=== PATIENT | male | born 1955 | race Two or more races ===

== ENCOUNTER → 2020-06-13 12:31 | Outpatient (BNVA) | payer OTHER, SELFPAY | PROVIDERS: PCP Internal Medicine; Referring Provider Internal Medicine; Visit Provider Internal Medicine | DX: I25.10 Atherosclerotic heart disease of native coronary artery without angina pectoris (principal); I47.2 Ventricular tachycardia; Z79.899 Other long term (current) drug therapy | CPT/HCPCS: 99212 ==

== ENCOUNTER → 2020-09-13 13:02 | Outpatient (BNVA) | payer OTHER, SELFPAY | PROVIDERS: PCP Internal Medicine; Visit Provider Internal Medicine | DX: I25.10 Atherosclerotic heart disease of native coronary artery without angina pectoris (principal); I47.2 Ventricular tachycardia; I10 Essential (primary) hypertension; E11.8 Type 2 diabetes mellitus with unspecified complications | CPT/HCPCS: 99212 ==

== ENCOUNTER → 2020-09-30 08:35 | Outpatient (REF) | payer OTHER, SELFPAY ==
--- NOTE | ~2020-09-30 | NM_ITS ---
Myocardial perfusion study Indication: Coronary artery disease to evaluate for myocardial ischemia Technique: The patient was brought in for a Lexiscan perfusion study on 09/30/2020. Patient performed low-level exercise and was injected 0.4 mg of Lexiscan intravenously. Within a minute of injection, 30mCi of sestamibi was given intravenously. Images were obtained using the SPECT gamma camera interlaced with the gating device. Images were obtained in supineposition. Resting perfusion study was performed on 10/03/2020 Patient was administered 30mCi of sestamibi intravenously at rest. Images were then obtained in supineposition. Images were processed with the software and compared side to side in short axis, horizontal long axis and vertical long axis views. Findings: The stress perfusion study showed non attenuated images show moderately reduced uptake in the septum and absent uptake in the apex and mildly reduced uptake in the inferior wall of the LV myocardium with mild the uptake reducing the distal anterior wall of the LV myocardium. Attenuation corrected images shows moderately reduced uptake in the septum, distal anterior and mildly reduced uptake in the mid anterior with absent uptake in the apex of the LV myocardium, unchanged from non attenuated images. The gated study shows low normal LV systolic function with calculated LVEF of 54. LV cavity is mildly dilated in size. The gated study shows normal wall thickening and contraction of all segments except distal septum and apex. Resting study shows mildly reduced uptake in the apex on non attenuated images. Gating at rest reveals normal systolicwall motion with ejection fraction at 61%. The findings are consistent with moderate intensity anteroseptal, distal anterior and mildly intensity mid anterior and severely intensity apical ischemia in LAD territory. NM/NM cardiolite stress test Impression: 1. Myocardial perfusion imaging study shows LAD territory ischemia 2. Gated LVEF is 54% with stress and 61% with stress 3. Transient ischemic dilatation present EKG is nondiagnostic for ischemia
--- NOTE | 2020-09-30 09:30 | CA_ITS ---
Acquisition Time: 2020-09-30 09:44:39 Total Exercise Time: 00:02:00 Test Indications: Chest Pain Medications: AMLODIPINE ASA ATENOLOL ATORVASTATIN CLOPIDOGREL GABAPENTIN Protocol: LEXISCAN Max HR: 086 BPM 55% of Pred: 155 BPM Max BP: 130/082 mmHG Max Work Load: 1.0 METS Pharmacological stress test using Lexiscan while sitting and kicking his feet. Pt c/o chest pressure after Lexiscan, reversed with Aminophyline. Pt belching as well. EKG with isolated PAC, non-diagnostic for ischemia. Nuclear images to follow. Normotensive response to test. Test reviewed with Dr. García Referred By: Lacho García Overread By:
== END ==
LOC: HO.CARD 08:35
PROVIDERS: Visit Provider Internal Medicine
DX: I25.10 Atherosclerotic heart disease of native coronary artery without angina pectoris (principal)
CPT/HCPCS: 78452; 93016; 93017; 93018; A9500; J0280; J2785

== ENCOUNTER 2020-10-03 08:52 | Emergency (ER) | payer OTHER, SELFPAY ==
--- NOTE | ~2020-10-03 | XR_ITS ---
EXAMINATION: XR CHEST CLINICAL INFORMATION: Cough COMPARISON: 03/25/2015 TECHNIQUE: Frontal view of the chest was obtained. FINDINGS: The lungs are well expanded. There is no focal consolidation, edema, or effusion. Mild bronchial wall thickening is noted. No pneumothorax. The cardiomediastinal silhouette is within normal limits. No acute osseous abnormality. XR/XR chest 1V IMPRESSION: No dense consolidation. Bronchial wall thickening can be seen with a small airways process such as asthma or atypical/viral infection.
[2020-10-03 09:18] VITALS: BP 135/74; PULSE 75; RESP 18; TEMP 36.8; O2SAT 98; BMI 24.0
--- NOTE | 2020-10-03 10:09 | ED.URI ---
HPI - URI/Sore Throat General Chief Complaint: Upper Respiratory Symptoms Stated Complaint: cough Time Seen by Provider: 10/03/20 09:18 Source: patient Mode of arrival: ambulatory Limitations: language barrier ([place]-speaking) History of Present Illness HPI Narrative: 65-year-old male with a past medical history of coronary artery atherosclerosis, arthrosclerotic cardiovascular disease, nonsustained ventricular tachycardia, essential hypertension and type 2 diabetes with diabetic polyneuropathy who has had a cardiac catheterization in the past and recently had a stress test on 09/30/2020 which revealed isolated PACs nondiagnostic for ischemia and then nuclear images were to follow normotensive response to test still pending results being followed by Dr. García presenting to the ED with complaints of nasal congestion with a dry cough reports this has been going on for months although he just wants to be tested for COVID. Reports that he just had an appointment this morning and he has an appointment this afternoon with Dr. García to follow up with his results for his chronic chest pain. Patient denies any worsening chest pain, shortness of breath or any other cardiac related complaints today. Denies any dizziness, lightheadedness, changes in vision, nausea/vomiting, palpitations, dyspnea on exertion, orthopnea, lower extremity edema or any symptoms. Reports he really just wants to be tested for coronavirus at this time. Denies recent travel or sick contacts. MD elicited complaint: cough and nasal congestion Consistency: constant Severity: moderate Description of mucous: yellow Able to tolerate fluids by mouth: Yes Exacerbating factors: nothing Treatments prior to arrival: none Related Data Home Medications Medication Instructions Recorded Confirmed amlodipine 10 mg tablet 10 mg PO DAILY 06/13/20 09/13/20 folic acid 1 mg tablet 1 mg PO DAILY 06/13/20 09/13/20 mirabegron 50 mg tablet,extended 50 mg PO DAILY 06/13/20 09/13/20 release 24 hr pantoprazole 40 mg tablet,delayed 40 mg PO DAILY 06/13/20 09/13/20 release tamsulosin 0.4 mg capsule 0.4 mg PO DAILY 06/13/20 09/13/20 gabapentin 300 mg capsule 300 mg PO TID 07/27/20 09/13/20 Previous Rx's Medication Instructions Recorded atorvastatin 80 mg tablet 80 mg PO DAILY 30 Days #30 tab 10/07/20 aspirin 81 mg tablet,delayed 81 mg PO DAILY 90 Days #90 tab 05/05/20 release hydralazine 25 mg tablet 25 mg PO TID 90 Days #270 tab 05/05/20 sitagliptin 100 mg tablet 100 mg PO DAILY 90 Days #90 tab 05/05/20 metformin 1,000 mg tablet 1,000 mg PO BID #180 tab 05/10/20 isosorbide mononitrate 60 mg 120 mg PO QAM #60 tab 06/27/20 tablet,extended release 24 hr cholecalciferol (vitamin D3) 50 50 mcg PO DAILY 30 Days #30 cap 07/05/20 mcg (2,000 unit) capsule lisinopril 40 mg tablet 40 mg PO QAM #90 tab 07/30/20 blood sugar diagnostic #100 ea 08/02/20 lancets 33 gauge #100 ea 08/02/20 ranolazine 500 mg tablet,extended 500 mg PO BID 30 Days #60 tab 08/23/20 release,12 hr nitroglycerin 0.4 mg sublingual 0.4 mg SUBLINGUAL Q5M PRN 30 Days 09/13/20 tablet #30 tab clopidogrel 75 mg tablet 75 mg PO DAILY 90 Days #90 tab 09/22/20 gabapentin 300 mg capsule 300 mg PO TID #90 cap 09/22/20 atenolol 100 mg tablet 100 mg PO BEDTIME #30 tab 09/23/20 levothyroxine 125 mcg tablet 125 mcg PO QAM #90 tab 09/25/20 mirabegron 50 mg tablet,extended 50 mg PO DAILY 90 Days #90 tab 09/29/20 release 24 hr azithromycin See Rx Instructions .ROUTE 10/03/20 .COMPLEX #6 tab loratadine [Claritin] 10 mg PO DAILY PRN #10 tab 10/03/20 Allergies Allergy/AdvReac Type Severity Reaction Status Date / Time amlodipine AdvReac Unknown leg edema Verified 09/13/20 13:04 Review of Systems Review of Systems: Constitutional : No Fever, No Chills, No fatigue, No Malaise ENT/Mouth : No sore throat, + runny nose/nasal congestion Eyes: No Discharge Cardiovascular : No Chest Pain, No SOB Respiratory : + Cough, No Sputum, No Wheezing, No Smoke Exposure, No Dyspnea Gastrointestinal : No Nausea, No Vomiting, No Diarrhea Genitourinary : No irregular bleeding, No Dysuria, No Urinary Frequency, No Hematuria, No Urinary Incontinence, No Urgency, No Flank Pain, Musculoskeletal : No Myalgia Skin : No rash Neuro : No Headache Yes all other systems are reviewed and are negative [facility] Past Medical History Attestation statement: The following information was validated with the patient. Medical History Atherosclerotic cardiovascular disease Coronary artery arteriosclerosis Essential hypertension NSVT (nonsustained ventricular tachycardia) Type 2 diabetes mellitus with diabetic polyneuropathy Surgical History History of cardiac catheterization Family History Family History Father No problems noted. Mother No problems noted. Social History Social History Smoking Status: Never smoker Advance Directives: No Advance Directives Information Provided: No Physical Exam Vital Signs: Vital Signs: Last Vital Signs Temp 98.2 F 10/03/20 09:18 Pulse 75 10/03/20 09:18 Resp 18 10/03/20 09:18 BP 135/74 10/03/20 09:18 Pulse Ox 98 10/03/20 09:18 Body Mass Index 24.0 vital signs have been reviewed as normal and appeared to be correct. Blood pressure normal. Heart rate normal. Respiration rate normal. Temperature normal. Oxygen saturation normal. Appearance: Alert. Oriented X3. No acute distress. Head: Normal external exam. Normocephalic. Atraumatic. Eyes: PERRLA. EOMI. Conjunctiva and sclera normal. Eyelids normal. ENT: EAC normal. TM's Normal. Pharynx normal. Uvula midline. Moist mucous membranes. No trismus noted. No drooling noted. No muffled voice noted. Neck: Normal inspection. Neck supple. FROM. No adenopathy. Thyroid Normal. No meningeal signs. No neck mass noted. CVS: Normal heart rate and rhythm. Heart sound normal. No murmurs noted. Pulses normal throughout. Respiratory: No respiratory distress. Painless inspiration. Breath sounds normal. No wheezes/rales/rhonchi noted. Chest nontender. No accessory muscle usage noted or decreased air movement noted. Back: No CVA tenderness. Full range of motion noted. Skin: Skin warm and dry. Normal skin color. Normal skin turgor. No rashes/lesions/lacerations noted. Extremities: No lower extremity edema. No calf tenderness noted. Extremities exhibit normal range of motion. Extremities nontender. Neuro: Oriented X 3. No motor deficit. No sensory deficit. Reflexes normal. Course Course Course Narrative: 65-year-old male with extensive cardiac history being followed by Ricky has a follow-up appointment today presenting to the ED with nasal congestion, runny nose and a cough for the past few months worse today. Reports that he just wants to get tested for COVID at this time. Denies recent travel or sick contacts. Denies any other symptoms complaints or concerns at this time. On exam patient is alert and oriented x3. Nontoxic appearing. Vital signs are stable within normal limits. Chest x-ray obtained and revealed no dense consolidation bronchial wall thickening can be seen with small airway processes such as asthma or atypical viral infection otherwise no other acute processes. Pending COVID/flu/RSV swab. Will DC home with antibiotics and symptomatic treatment along with instructions return if any new or worsening symptoms. Patient understands agrees with this plan. MDM - URI/Sore Throat Medical Records Attestation: I reviewed the patient's medical records. Imaging Data Chest x-ray: Attestation: I personally reviewed and interpreted this imaging study as follows: Radiologist's impression: FINDINGS: The lungs are well expanded. There is no focal consolidation, edema, or effusion. Mild bronchial wall thickening is noted. No pneumothorax. The cardiomediastinal silhouette is within normal limits. No acute osseous abnormality. XR/XR chest 1V IMPRESSION: No dense consolidation. Bronchial wall thickening can be seen with a small airways process such as asthma or atypical/viral infection. Discharge Plan Discharge Clinical Impression: Upper respiratory infection Patient Disposition: Home, Self-Care Instructions: Upper Respiratory Infection (ED) Additional Instructions: Si recibe aydin llamada sobre los resultados positivos de COVID no debe ir a la oficina del Dr. García debe ponerse en contacto con ?l y hacerle saber que es positivo para COVID si vuelve positivo. Bas?ndonos en abdulaziz s?ntomas e historial hemos enviado un COVID-19. Aunque fuentes RESULTADO EST? PENDIENTE en idalmis momento. LOS RESULTADOS deben devolverse en un plazo de 72 horas. En idalmis momento se le contactar? con resultados NEGATIVOS o POSITIVOS. -Por favor, espere hasta que nos pongamos en contacto con usted para abdulaziz resultados. En idalmis momento usted estar? jeannette para el danitza. Por favor, planee la auto cuarentena hasta por 14 d?as. No te expongas a los dem?s. Puede que no vayas a trabajar. Si las pruebas vuelven negativas, es posible que vuelvas a las actividades siempre y cuando ya no tengas s?ntomas solo al menos 3 d?as. Por favor, contin?e siguiendo instrucciones fr?as y l?vese las alex con frecuencia. Usted puede patricia Tylenol may se indica en el frasco para el dolor o la fiebre. Paciente atendido en el servicio de urgencias el 10/03/2020 y debe ser eximido del trabajo hasta los resultados negativos de las pruebas Y hasta las 72 horas sin richie?n s?ntoma Y rapp pasado al menos 10 d?as desde que aparecieron los s?ntomas por primera vez o desde la ?ltima exposici?n al paciente covid-19 positivo Directrices de los CDC para el aislamiento en el hogar: - Al?jate de los dem?s - USE AYDIN M?SCARA si est? enfermo Y QU?DESE EN CASA - C?brase la boca y la nariz con un pa?uelo cuando tose o estornuda. Deseche los tejidos en un cubo de basura forrado y l?vese las alex inmediatamente con agua y jab?n solo al menos 20 segundos. Si no hay agua y jab?n disponibles, limpie las alex con desinfectante de alex a base de alcohol que contenga al menos un 60% de alcohol. - L?mpiate las alex a menudo con agua y jab?n solo al menos 20 segundos - Evite tocarse los ojos, la nariz y la boca con las alex sin radha - No comparta platos, tracey vasos, tazas, coma utensilios, toallas o ropa de cama con otras personas en fuentes hogar. Despu?s de usar estos art?culos, l?velo jeannette con agua y jab?n o col?justo en el [place]. - Limpie las superficies de alto tacto en fuentes ?meenakshi de aislamiento ( habitaci?n enferma y ba?o) todos los d?as; dejar que un cuidador limpie y desinfecte las superficies de alto tacto en otras ?reas del hogar. Limpie el ?meenakshi o art?culo con agua y jab?n u otro detergente si est? sucio. Entonces, usa un desinfectante dom?stico. - Limitar el contacto con mascotas y animales: Si usted debe cuidar de aydin mascota, l?vese las alex antes y despu?s de interactuar con ellos). If you receive a call regarding positive COVID results he should not go to Dr. García office she should contact him and let him know you are positive for COVID if it comes back positive. Based on your symptoms and history we have sent a COVID-19. Although your RESULT IS PENDING at this time. RESULTS should return within 72 hours. At this time you will be contacted with either NEGATIVE OR POSITIVE results. -Please wait until we contact you for your results. At this time you will be okay for discharge. Please plan for self quarantine for up to 14 days. Do not expose yourself to others. You may not go to work. If testing does come back negative you may return to activities as long as you are no longer having any symptoms for at least 3 days. Please continue to follow cold instructions and wash your hands frequently. You may take Tylenol as directed on the bottle for pain or fever. Patient seen in the emergency department on 10/03/2020 and should be excused from work until negative test results AND until 72 hours without any symptoms AND at least 10 days have passed since symptoms first appeared or since last exposure to COVID-19 positive patient CDC Guidelines for home isolation: - Stay away from others - WEAR A MASK if you are sick AND STAY HOME - Cover your mouth and nose with a tissue when you cough or sneeze. Dispose of tissues in a lined trash can and wash your hands immediately with soap and water for at least 20 seconds. If soap and water are not available, clean hands with alcohol-based hand irradiated fuel handler that contains at least 60% alcohol. - Clean your hands often with soap and water for at least 20 seconds - Avoid touching your eyes, nose and mouth with unwashed hands - Do not share dishes, drinking glasses, cups, eating utensils, towels, or bedding with other people in your home. After using these items, wash them thoroughly with soap and water or put in the business liaison manager. - Clean high-touch surfaces in your isolation area ( sick room and bathroom) every day; let a caregiver clean and disinfect high-touch surfaces in other areas of the home. Clean the area or item with soap and water or another detergent if it is dirty. Then, use a household disinfectant. - Limit contact with pets and animals: If you must care for a pet, wash your hands before and after interacting with them). Prescriptions: New loratadine [Claritin] 10 mg tablet 10 mg PO DAILY PRN (Reason: nasal congestion) Qty: 10 RF: 0 azithromycin 250 mg tablet See Rx Instructions .ROUTE .COMPLEX Qty: 6 RF: 0 No Action atorvastatin 80 mg tablet 80 mg PO DAILY 30 Days Qty: 30 RF: 6 hydralazine 25 mg tablet 25 mg PO TID 90 Days Qty: 270 RF: 3 Januvia 100 mg tablet 100 mg PO DAILY 90 Days Qty: 90 RF: 3 aspirin 81 mg tablet,delayed release (DR/EC) 81 mg PO DAILY 90 Days Qty: 90 RF: 3 metformin 1,000 mg tablet 1,000 mg PO BID Qty: 180 RF: 6 isosorbide mononitrate 60 mg tablet extended release 24 hr 120 mg PO QAM Qty: 60 RF: 5 cholecalciferol (vitamin D3) 50 mcg (2,000 unit) capsule 50 mcg PO DAILY 30 Days Qty: 30 RF: 6 gabapentin 300 mg capsule 300 mg PO TID RF: 0 lisinopril 40 mg tablet 40 mg PO QAM Qty: 90 RF: 2 (DME) lancets [TRUEplus Lancets] 33 gauge misc See Rx Instructions .ROUTE .MEDSUPPLY Qty: 100 RF: 6 (DME) FreeStyle Lite Strips Strip See Rx Instructions .ROUTE .MEDSUPPLY Qty: 100 RF: 6 ranolazine 500 mg tablet extended release 12 hr 500 mg PO BID 30 Days Qty: 60 RF: 5 clopidogrel 75 mg tablet 75 mg PO DAILY 90 Days Qty: 90 RF: 4 gabapentin 300 mg capsule 300 mg PO TID Qty: 90 RF: 1 atenolol 100 mg tablet 100 mg PO BEDTIME Qty: 30 RF: 11 levothyroxine 125 mcg tablet 125 mcg PO QAM Qty: 90 RF: 0 Myrbetriq 50 mg tablet extended release 24 hr 50 mg PO DAILY 90 Days Qty: 90 RF: 2 Myrbetriq 50 mg tablet extended release 24 hr 50 mg PO DAILY RF: 0 pantoprazole 40 mg tablet,delayed release (DR/EC) 40 mg PO DAILY RF: 0 tamsulosin 0.4 mg capsule 0.4 mg PO DAILY RF: 0 amlodipine 10 mg tablet 10 mg PO DAILY RF: 0 folic acid 1 mg tablet 1 mg PO DAILY RF: 0 nitroglycerin 0.4 mg tablet, sublingual 0.4 mg sublingual Q5M PRN (Reason: chest pain) 30 Days Qty: 30 RF: 5 Referrals: Shu Hernandez MD [Primary Care Provider] - 2 days Lacho García MD [Physician] - 2 days Print Language: [place]
[2020-10-03 10:56] LABS: Influenza A PCR NEGATIVE (Negative); Influenza B PCR NEGATIVE (Negative); Resp Syncy Virus RNA Qual PCR NEGATIVE (Negative); SARS COV2 PCR INHOUSE NEGATIVE (Negative)
== END 2020-10-03 11:04 | disposition home or self-care (01) ==
PROVIDERS: Physician Assistant Medical; Emergency Provider Emergency Medicine; PCP Internal Medicine
DX: J06.9 Acute upper respiratory infection, unspecified (principal); Z20.822 Contact with and (suspected) exposure to COVID-19; I10 Essential (primary) hypertension; E11.9 Type 2 diabetes mellitus without complications
CPT/HCPCS: 0241U; 36415; 71045; 99212; 99283

== ENCOUNTER 2020-10-03 12:12 | Outpatient (REF) | payer OTHER, SELFPAY ==
[2020-10-03 13:19] LABS: Hematocrit 39.6 % (42-52); Hemoglobin 13.9 g/dl (14.0-18.0); Mean Corpuscular HGB Conc 35.1 g/dl (31.0-36.0); Mean Corpuscular Hemoglobin 34.2 pg (27.0-33.0); Mean Corpuscular Volume 97.3 fL (80-98); Mean Platelet Volume 8.9 fL (9.4-12.4); Platelet Count 199 X10*3/uL (160-400); Red Blood Count 4.07 X10*6/uL (4.60-5.80); Red Cell Distribution Width 13.5 % (11.0-16.0); White Blood Count 5.2 X10*3/uL (4.8-10.8)
[2020-10-03 13:28] LABS: INTERNATIONAL NORM RATIO 1.1 (0.9-1.1); Prothrombin Time 12.7 SEC (10.8-13.0)
[2020-10-03 13:57] LABS: Anion Gap 12 (12-20); Blood Urea Nitrogen 16 mg/dL (9-16); Calcium 9.2 mg/dL (8.4-10.2); Carbon Dioxide 29 mmol/L (22-29); Chloride 105 mmol/L (96-108); Estimated Glomerular Filt Rate > 60; Glucose Random 107 mg/dL (60-115); Potassium 4.4 mmol/L (3.3-5.1); Sodium 142 mmol/L (135-145)
== END 2020-10-03 12:13 | disposition home or self-care (01) ==
LOC: HO.LAB 12:12
PROVIDERS: PCP Internal Medicine; Visit Provider Internal Medicine
DX: I25.10 Atherosclerotic heart disease of native coronary artery without angina pectoris (principal)
CPT/HCPCS: 36415; 80048; 85027; 85610

== ENCOUNTER → 2020-10-07 07:11 | Outpatient (REF) | payer OTHER, SELFPAY ==
--- NOTE | 2020-10-07 07:16 | CA_ITS ---
Transthoracic Echocardiogram Patient (Last, First, Middle): Steve Caceres, Gender: Male Date of : 1955 Age: 65 Procedure Date: 10/07/2020 Procedure Type: Transthoracic Echocardiogram Location: OP Height: 180.34 cm Weight: 81.65 kg BSA: 2.02 m2 Heart Rate: bpm BP: 116 / 66 mmHg Vessel Builder: JANES Referring MD: Lacho García MD Symptoms: I25.10 - Atherosclerotic heart disease of saxman coronary artery without angina pectoris Study Quality: Fair Conclusions: - Normal left ventricular size and systolic function. - The basal inferior segment is akinetic. - Normal right ventricular cavity size and systolic function. Findings Left Ventricle Normal left ventricular size and systolic function. There is mildly increased left ventricular wall thickness. The visually estimated ejection fraction is between 60-65%. There is evidence of regional wall motion abnormalities. Abnormal diastolic function is noted. Spectral Doppler is indicative of an impaired relaxation filling pattern. E/E prime ratio is between 8 and 15 consistent with indeterminate filling pressures. Wall Motion Rest Echo Findings The basal inferior segment is akinetic. Right Ventricle Normal right ventricular cavity size and systolic function. Aortic Valve Normal aortic valve structure and function. There is no aortic valve stenosis. There is no aortic valve regurgitation. Mitral Valve Normal mitral valve structure and function. There is trace mitral valve regurgitation. There is no mitral valve stenosis. Pulmonic Valve Normal pulmonic valve structure and function. There is trace pulmonic valve regurgitation. Tricuspid Valve Normal tricuspid valve structure and function. There is trace tricuspid valve regurgitation. Normal right atrial pressure. There is no evidence of pulmonary hypertension. Great Vessels All visible segments of the aorta are normal in size. The visualized portions of the pulmonary artery and branches are normal. Venous The inferior vena cava is normal in size and collapses greater than 50% with inspiration. Pericardium/Pleural There is no evidence of pericardial effusion. Prior Study Comparison No significant change compared to prior study dated: 03/03/2020. Measurements M-Mode Liner Measurements Normals - Women/Men AOV Cusps: 2.00 1.5-2.6 cm/m2 2D Linear Measurements IVSd: 1.14 0.6-0.9/0.6-1.0 cm LVIDd: 4.10 3.9-5.3/4.2-5.9 cm LVIDd Index: 2.03 2.4-3.2/2.2-3.1 cm/m2 LVIDs: 2.80 2.0-3.6 cm LVPWd: 1.15 0.7-1.1 cm Ao Root: 3.00 2.1-3.5 cm LA Diam: 4.00 2.7-3.8/3.0-4.0 cm LAIDs Index: 1.98 1.5-2.3 cm/m2 LV Mass: 199.68 67-162/88-224 g LV Mass Index: 98.85 43-95/49-115 g/m2 LVOT Diam: 2.20 3.0+(-)1.3 cm 2D Systolic Function EF 4C: 54.10 >55% EF 2C: 67.00 >55% EF BiP: 60.80 >55% Mitral Valve MV Pk E: 0.74 MV PK A: 1.21 MV Decel Time: 277.00 E/A: 0.60 E'Lateral: 10.20 E'Medial: 5.00 E/E' Med: 14.80 E/E' Lat: 7.30 PHT: 81.00 MVA PHT: 2.72 Decel [place]: 2.67 Aortic Valve AoV Pk Fermin: 1.34 AoV Pk Grad: 7.00 LVOT LVOT Pk Fermin: 0.90 LVOT Mn Fermin: 0.62 LVOT VTI: 0.16 LVOT Pk Grad: 3.00 LVOT Mn Grad: 2.00 LVOT Diam: 2.20 LVOT Area: 3.80 Diastolic Function MV Pk E: 0.74 MV Pk A: 1.21 E/A: 0.60 E'Medial: 5.00 E/E' Med: 14.80 E' Laterial: 10.20 E/E' Lat: 7.30 Tricuspid Valve TR Pk Fermin: 2.59 TR Pk Grad: 27.00 RA Press: 3.00 RVSP: 30.00 Great Vessels Aorta Ao Root-2D: 3.00 2.0-3.7 cm Ao Asc: 3.10 2.1-3.4 cm Ao Arch: 2.60 Pulmonary Valve PV Pk Fermin: 1.06 Peak PV Grad: 4.00 Updated in Other Vendor System with Status of Final Cosme High MD electronically signed on 10/08/2020 7:09:46 PM with status of Final
== END ==
LOC: HO.CARD 07:11
PROVIDERS: PCP Internal Medicine; Visit Provider Internal Medicine
DX: I25.10 Atherosclerotic heart disease of native coronary artery without angina pectoris (principal)
CPT/HCPCS: 93306

== ENCOUNTER → 2020-11-15 15:02 | Outpatient (BNVA) | payer OTHER, SELFPAY | PROVIDERS: PCP Internal Medicine; Visit Provider Internal Medicine | DX: I25.10 Atherosclerotic heart disease of native coronary artery without angina pectoris (principal); I47.2 Ventricular tachycardia; I10 Essential (primary) hypertension; E11.8 Type 2 diabetes mellitus with unspecified complications; Z95.1 Presence of aortocoronary bypass graft | CPT/HCPCS: 93005; 99212 ==

== ENCOUNTER → 2020-11-17 11:28 | Outpatient (BNVA) | payer OTHER, SELFPAY | PROVIDERS: PCP Internal Medicine; Visit Provider Urology | DX: N40.1 Benign prostatic hyperplasia with lower urinary tract symptoms (principal); R39.15 Urgency of urination; R39.12 Poor urinary stream; R33.9 Retention of urine, unspecified | CPT/HCPCS: 51798; 99212 ==

== ENCOUNTER → 2020-11-25 10:27 | Outpatient (BNVA) | payer OTHER, SELFPAY | PROVIDERS: PCP Internal Medicine; Visit Provider Nurse Practitioner Gerontology | DX: E11.42 Type 2 diabetes mellitus with diabetic polyneuropathy (principal); E78.5 Hyperlipidemia, unspecified; E03.9 Hypothyroidism, unspecified; I10 Essential (primary) hypertension; Z68.24 Body mass index [BMI] 24.0-24.9, adult; Z79.4 Long term (current) use of insulin; Z71.3 Dietary counseling and surveillance | CPT/HCPCS: 82947; 99212 ==

== ENCOUNTER 2020-11-28 08:29 | Outpatient (REF) | payer OTHER, SELFPAY ==
[2020-11-28 09:44] LABS: Alanine Aminotransferase 19 U/L (0-40); Albumin Level 4.3 g/dL (3.5-5.0); Alkaline Phosphatase 76 U/L (39-117); Anion Gap 12 (12-20); Aspartate Amino Transferase 16 U/L (5-37); Bilirubin Total 0.6 mg/dL (0.0-1.0); Blood Urea Nitrogen 11 mg/dL (9-16); Calcium 9.4 mg/dL (8.4-10.2); Carbon Dioxide 32 mmol/L (22-29); Chloride 104 mmol/L (96-108); Cholesterol 89 mg/dL; Estimated Glomerular Filt Rate > 60; Glucose Fasting 96 mg/dL (60-99); HDL Cholesterol 26 mg/dL; LDL Cholesterol Calculated 51 mg/dl; Potassium 4.2 mmol/L (3.3-5.1); Sodium 144 mmol/L (135-145); Total Protein 7.5 g/dL (6.5-8.0); Triglycerides 60 mg/dL
[2020-11-28 10:06] LABS: Free T4 (Free Thyroxine) 1.21 ng/dL (0.71-1.85); Thyroid Stimulating Hormone 0.45 uIU/mL (0.32-4.0)
[2020-11-28 10:09] LABS: Microalbum/Creatinine Ratio Ur 24.2 ug/mg cr
[2020-11-29 08:02] LABS: LDL Cholesterol Direct 46 mg/dL (<100)
== END 2020-11-28 08:30 | disposition home or self-care (01) ==
LOC: HO.LAB 08:29
PROVIDERS: PCP Internal Medicine; Visit Provider Nurse Practitioner Gerontology
DX: E11.42 Type 2 diabetes mellitus with diabetic polyneuropathy (principal); Z79.4 Long term (current) use of insulin
CPT/HCPCS: 36415; 80053; 80061; 82043; 83721; 84439; 84443

== ENCOUNTER 2020-12-07 10:11 | Emergency (ER) | payer OTHER, SELFPAY ==
--- NOTE | ~2020-12-07 | CT_ITS ---
EXAMINATION: CT HEAD WITHOUT CONTRAST CLINICAL INFORMATION: Dizziness. High blood pressure. COMPARISON: Previous head CT July 2011 TECHNIQUE: Contiguous axial imaging was performed from the skull base to vertex without intravenous administration of contrast. This CT examination was performed using dose optimization techniques as appropriate, variously including the following: *Automated exposure control *Adjustment of mA and/or kV according to patient size (this includes techniques or standardized protocols for targeted exams where dose is matched to indication/reason for exam; i.e. extremities or head) *Use of iterative reconstruction technique DLP: 730 mGy-cm FINDINGS: There is no evidence of an extra-axial collection. There is no evidence of intra-axial or extra-axial hemorrhage. There is encephalomalacia of the left temporal lobe. The ventricles and extra-axial CSF spaces are otherwise appropriate. There is mild nonspecific periventricular white matter disease. No mass, mass effect or infarct is seen. There is evidence of old trauma to the left side of the face and left orbit. There are multiple radiopaque soft tissue foreign bodies seen in the left orbit, left side of the face and temporomandibular joint region. 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 There are old left orbit and zygoma fractures. No acute fracture is seen. Visualized paranasal sinuses, mastoid air cells and middle ears are clear. CT/CT head/brain wo con IMPRESSION: No acute findings. Stable encephalomalacia of the left temporal lobe and old trauma to the left side of the face and left orbit.
--- NOTE | ~2020-12-07 | CT_ITS ---
EXAMINATION: CT ANGIOGRAM OF THE CHEST WITH AND WITHOUT CONTRAST (CT PULMONARY ANGIOGRAM FOR PE) CLINICAL INFORMATION: Reason for Exam Elevated D-dimer. Recent CABG. Exertional chest pain, sob COMPARISON: None TECHNIQUE: Prior to contrast administration, noncontrast localization images were obtained. Subsequently, multidetector volumetric imaging was performed from the thoracic inlet to below the diaphragms following the administration of 75 mL Omnipaque 350 intravenous contrast. No contrast reaction reported Sagittal, coronal, and MIP oblique sagittal reformatted images were obtained on the CT workstation, uploaded to PACS, and reviewed. This CT examination was performed using dose optimization techniques as appropriate, variously including the following: *Automated exposure control *Adjustment of mA and/or kV according to patient size (this includes techniques or standardized protocols for targeted exams where dose is matched to indication/reason for exam; i.e. extremities or head) *Use of iterative reconstruction technique Total exam dose-length product 308 mGy-cm FINDINGS: QUALITY OF STUDY/CONTRAST BOLUS: Satisfactory. PULMONARY ARTERIES: No central or segmental pulmonary emboli. THORACIC AORTA: No aneurysm or dissection. 2 vessel branching pattern of the aortic arch is seen with common origin to the innominate and left carotid. LUNG: No focal consolidation, nodules or masses. PLEURA: No pleural effusion or pneumothorax. MEDIASTINUM: Heart size upper limits of normal. Status post median sternotomy. No pericardial effusion. No hilar or mediastinal lymphadenopathy. No evidence of septal bowing or right heart strain. CHEST WALL/AXILLA: No axillary or internal mammary lymphadenopathy. OSSEOUS STRUCTURES: No acute or suspicious osseous abnormality. UPPER ABDOMEN: Unremarkable. No reflux of contrast into the hepatic veins to suggest elevated right heart pressures. CT/CT angio chest PE protocol IMPRESSION: No evidence of pulmonary emboli Cause for the patient's chest pain has not been found VTE: negative
--- NOTE | ~2020-12-07 | XR_ITS ---
EXAMINATION: XR CHEST CLINICAL INFORMATION: Shortness of breath and chest pain COMPARISON: Previous chest x-ray most recent September 2020 TECHNIQUE: 1 view of the chest was obtained. FINDINGS: There are new post-CABG changes. The cardiac and mediastinal contours are normal. The lung volumes are low. There is bibasilar atelectasis. The lungs are otherwise clear. There is no pleural effusion or pneumothorax. There are degenerative changes of the spine. XR/XR chest 1V IMPRESSION: New post-CABG changes. Low lung volumes and bibasilar subsegmental atelectasis.
[2020-12-07 10:16] VITALS: BP 181/96; PULSE 70; RESP 12; TEMP 36.7; O2SAT 97; BMI 26.3
--- NOTE | 2020-12-07 10:29 | ECG_ITS ---
Test Reason : SOB Blood Pressure : / mmHG Vent. Rate : 070 BPM Atrial Rate : 070 BPM P-R Int : 166 ms QRS Dur : 080 ms QT Int : 392 ms P-R-T Axes : 047 063 143 degrees QTc Int : 423 ms Normal sinus rhythm Possible Left atrial enlargement ST & T wave abnormality, consider lateral ischemia Abnormal ECG When compared with ECG of 13-FEB-2017 12:43, Premature ventricular complexes are no longer Present T wave inversion more evident in Lateral leads Referred By: Emy Gordon Electronically Signed By:Cosme High
[2020-12-07 10:39] VITALS: BP 154/95; PULSE 69; RESP 20; O2SAT 96
[2020-12-07 10:56] LABS: MANUAL DIFF FLAG NO
[2020-12-07 11:02] LABS: Basophils Percent Auto 0.9 % (0-2); Eosinophils Absolute Auto 0.2 X10*3/uL (0.0-0.4); Hematocrit 35.3 % (42-52); Hemoglobin 11.9 g/dl (14.0-18.0); Lymphocytes Absolute Auto 1.2 X10*3/uL (1.2-4.9); Lymphocytes Percent Auto 34.2 % (20-40); Mean Corpuscular HGB Conc 33.7 g/dl (31.0-36.0); Mean Corpuscular Hemoglobin 31.4 pg (27.0-33.0); Mean Corpuscular Volume 93.1 fL (80-98); Mean Platelet Volume 9.1 fL (9.4-12.4); Monocytes Absolute Auto 0.5 X10*3/uL (0.1-1.2); Monocytes Percent Auto 14.6 % (2-11); Neutrophils Absolute Auto 1.5 X10*3/uL (2.0-8.3); Neutrophils Percent Auto 44.3 % (45-73); Platelet Count 162 X10*3/uL (160-400); Red Blood Count 3.79 X10*6/uL (4.60-5.80); Red Cell Distribution Width 13.3 % (11.0-16.0); White Blood Count 3.4 X10*3/uL (4.8-10.8)
[2020-12-07 11:07] LABS: INTERNATIONAL NORM RATIO 1.1 (0.9-1.1); Prothrombin Time 13.3 SEC (10.8-13.0)
[2020-12-07 11:10] LABS: Partial Thromboplastin Time 28.6 SEC (24.1-38.0)
--- NOTE | 2020-12-07 11:13 | ED.SOB ---
HPI - SOB/Dyspnea General Chief Complaint: Dyspnea Stated Complaint: Chest Pain High Blood Pressure Time Seen by Provider: 12/07/20 10:21 Source: patient Mode of arrival: wheelchair History of Present Illness HPI Narrative: 65-year-old male with a past medical history BPH, HTN, GERD, substance abuse, hypothyroid, hyperlipidemia, nonsustained ventricular tachycardia, PVD, neuropathy, diabetes, vitamin-D deficiency, s/p CABGx3 on 10/17/2020 at [facility] on ASA/Plavix presenting to the ED from cardiac rehab at [facility] with hypertension, headache, and reported SOB this morning and chest pain on exertion. Denies SOB at present. Denies fever, chills, cough, abdominal pain, nausea/vomiting, LE edema Reports compliance with antihypertensives Related Data Home Medications Medication Instructions Recorded Confirmed folic acid 1 mg tablet 1 mg PO DAILY 06/13/20 12/06/20 tamsulosin 0.4 mg capsule 0.4 mg PO DAILY 06/13/20 12/06/20 Previous Rx's Medication Instructions Recorded aspirin 81 mg tablet,delayed 81 mg PO DAILY 90 Days #90 tab 05/05/20 release sitagliptin 100 mg tablet 100 mg PO DAILY 90 Days #90 tab 05/05/20 metformin 1,000 mg tablet 1,000 mg PO BID #180 tab 05/10/20 cholecalciferol (vitamin D3) 50 50 mcg PO DAILY 30 Days #30 cap 07/05/20 mcg (2,000 unit) capsule lisinopril 40 mg tablet 40 mg PO QAM #90 tab 07/30/20 blood sugar diagnostic #100 ea 08/02/20 lancets 33 gauge #100 ea 08/02/20 nitroglycerin 0.4 mg sublingual 0.4 mg SUBLINGUAL Q5M PRN 30 Days 09/13/20 tablet #30 tab clopidogrel 75 mg tablet 75 mg PO DAILY 90 Days #90 tab 09/22/20 levothyroxine 125 mcg tablet 125 mcg PO QAM #90 tab 09/25/20 loratadine [Claritin] 10 mg PO DAILY PRN #10 tab 10/03/20 gabapentin 300 mg capsule 300 mg PO TID #90 cap 11/15/20 atorvastatin 80 mg tablet 80 mg PO BEDTIME #30 tab 11/17/20 metoprolol tartrate 50 mg tablet 50 mg PO BID 90 Days #180 tab 11/21/20 pantoprazole 40 mg tablet,delayed 40 mg PO QAM #90 tab 11/21/20 release meloxicam 15 mg tablet 15 mg PO DAILY #30 tab 12/06/20 Allergies Allergy/AdvReac Type Severity Reaction Status Date / Time amlodipine AdvReac Unknown leg edema Verified 12/06/20 12:50 Review of Systems Review of Systems: Constitutional: No Fever, No Chills, No Fatigue, No Malaise Cardiovascular: + Chest Pain, + SOB (resolved), +CP on Exertion, No Orthopnea, No Edema, No Palpitations Respiratory: No Cough, No Sputum, No Wheezing Gastrointestinal: No Nausea, No Vomiting, No Diarrhea, No Constipation, No Abdominal pain Genitourinary: No Dysuria, No Urinary Frequency, No Hematuria Musculoskeletal: No joint pain, No Myalgias, No Joint Swelling Skin: No Skin Lesions, No rash Neuro: No Weakness, No Numbness, No Dizziness, No Headache Yes all other systems are reviewed and are negative [facility] Past Medical History Attestation statement: The following information was validated with the patient. Medical History Acquired hypothyroidism Atherosclerotic cardiovascular disease Coronary artery arteriosclerosis Dyslipidemia Essential hypertension NSVT (nonsustained ventricular tachycardia) Type 2 diabetes mellitus with diabetic polyneuropathy Surgical History History of cardiac catheterization Family History Family History Father No problems noted. Mother No problems noted. Social History Social History Alcohol intake: never Smoking Status: Never smoker Use of substances other than those prescribed or required for medical reasons: No Advance Directives: Yes Advance Directives on File: Yes Advance Directives Date on File: 10/03/20 Physical Exam Vital Signs: Vital Signs: Last Vital Signs Temp 97.5 F 12/07/20 14:00 Pulse 77 12/07/20 16:00 Resp 18 12/07/20 16:00 BP 166/85 H 12/07/20 16:00 Pulse Ox 100 12/07/20 16:00 Body Mass Index 26.3 Const: General: cooperative, healthy appearing and comfortable Orientation/consciousness: patient oriented x3 Limitations: no limitations HENMT: Head: Yes normal to inspection Ears: hearing grossly normal bilaterally General nose exam: Normal external nose present Face and sinus: Yes normal facial exam Eyes: General: appearance normal, both eyes and all related structures EOM: EOMs intact bilaterally Neck: Neck: Yes normal visual inspection and Yes no meningeal signs Chest: Chest palpation & inspection: no crepitus and tenderness sternum Resp: Effort & Inspection: normal respiratory effort Auscultation: clear to auscultation bilaterally, no rales, no rhonchi and no wheezes Cardio: Rate: regular rate Heart sounds: S1 normal heart sound present and S2 normal heart sound present GI: Inspection: Yes normal to inspection Palpation (GI): Soft to palpation, nontender, no guarding and not rigid Skin: Rashes: no rashes Wounds: no wounds Neuro: General: patient oriented x3 and no meningeal signs Gait exam (Neuro): Normal gait present Extrem: General: Yes normal to inspection, Yes no pedal edema and Yes no calf tenderness Course Course Course Narrative: -H&H stable 11.9/35.3 > records from [facility] showed H&H of 12.1/38.3 on 10/31/20 s/p CABG -magnesium low 1.4 > 2g IV repletion ordered, BNP mildly elevated at 138, initial troponin 24.5 >> will obtain 3 hour repeat XR chest 1V IMPRESSION: New post-CABG changes. Low lung volumes and bibasilar subsegmental atelectasis. CT head/brain wo con IMPRESSION: No acute findings. Stable encephalomalacia of the left temporal lobe and old trauma to the left side of the face and left orbit. -case discussed with Dr. Schroeder, will obtain D-dimer and likely CTA to rule out PE -D-dimer 253 will obtain CTA, troponin without 50% rise, OR unlikely CT angio chest PE protocol IMPRESSION: No evidence of pulmonary emboli Cause for the patient's chest pain has not been found VTE: negative >> case discussed with Cardiology, Dr. High, pain seems atypical, troponins equivocal, pain is reproducible, EKG is unchanged from priors, believe patient is safe for DC home. I discussed this with patient with x ray tech including strict return precautions and worrisome signs and symptoms. He verbalized understanding and feels safe for discharge home to follow-up with his head charger/PCP MDM - SOB/Dyspnea MDM Narrative Medical decision making narrative: 65-year-old male with a past medical history BPH, HTN, GERD, substance abuse, hypothyroid, hyperlipidemia, nonsustained ventricular tachycardia, PVD, neuropathy, diabetes, vitamin-D deficiency, s/p CABGx3 on 10/17/2020 at [facility] on ASA/Plavix presenting to the ED from cardiac rehab at [facility] with hypertension, headache, and reported SOB this morning and chest pain on exertion. On exam hypertensive 180s/90s, NAD/nontoxic appearing, lungs CTA, chest pain reproducible on exam, no LE edema. Concern for ACS vs angina vs CHF. Unlikely PE/DVT as patient is anticoagulated. Low concern for pneumonia. Lower concern for hypertensive urgency/emergency with these blood pressures, but will obtain head CT to rule out ICH Plan: EKG, labs, CXR, head CT, reassess Medical Records Attestation: I reviewed the patient's medical records. Lab Data Attestation: I reviewed the patient's lab results. Result diagrams: 12/07/20 10:49 12/07/20 10:49 Labs: Lab Results 12/07/20 12/07/20 12/07/20 Range/Units 10:49 10:49 10:49 WBC 3.4 L (4.8-10.8) X10*3/uL RBC 3.79 L (4.60-5.80) X10*6/uL Hgb 11.9 L (14.0-18.0) g/dl Hct 35.3 L (42-52) % MCV 93.1 (80-98) fL MCH 31.4 (27.0-33.0) pg MCHC 33.7 (31.0-36.0) g/dl RDW 13.3 (11.0-16.0) % Plt Count 162 (160-400) X10*3/uL MPV 9.1 L (9.4-12.4) fL Immature Gran % (Auto) 0.0 (0.0-0.4) % Neut % (Auto) 44.3 L (45-73) % Lymph % (Auto) 34.2 (20-40) % Collin % (Auto) 14.6 H (2-11) % Eos % (Auto) 6.0 H (0-4) % Baso % (Auto) 0.9 (0-2) % Lymph # (Auto) 1.2 (1.2-4.9) X10*3/uL Collin # (Auto) 0.5 (0.1-1.2) X10*3/uL Eos # (Auto) 0.2 (0.0-0.4) X10*3/uL Baso # (Auto) 0.0 (0.0-0.2) X10*3/uL Abs Immat Gran (auto) 0.00 (0.00-0.03) X10*3/uL Absolute Neuts (auto) 1.5 L (2.0-8.3) X10*3/uL Absolute Nucleated RBC 0.000 (0.0-0.012) X10*3/uL Nucleated RBC % (auto) 0.0 (0.0-0.2) /100WBC PT (10.8-13.0) SEC INR (0.9-1.1) APTT (24.1-38.0) SEC D-Dimer NG/ML Sodium 140 (135-145) mmol/L Potassium 3.8 (3.3-5.1) mmol/L Chloride 104 (96-108) mmol/L Carbon Dioxide 29 (22-29) mmol/L Anion Gap 11 L (12-20) BUN 16 (9-16) mg/dL Creatinine 0.91 (0.5-1.4) mg/dL Estim Creat Clear Calc 86.1 Estimated GFR > 60 POC Glucose (60-115) mg/dL Random Glucose 92 (60-115) mg/dL Calcium 9.1 (8.4-10.2) mg/dL Magnesium 1.4 L* (1.6-2.6) mg/dL Total Bilirubin 0.6 (0.0-1.0) mg/dL Direct Bilirubin 0.3 (0.0-0.5) mg/dL AST 15 (5-37) U/L ALT 23 (0-40) U/L Alkaline Phosphatase 62 (39-117) U/L Troponin I High Sens 24.5 (<3.5-35.0) ng/L B-Natriuretic Peptide 138 H (<100) pg/mL Total Protein 6.7 (6.5-8.0) g/dL Albumin 3.9 (3.5-5.0) g/dL Coronavirus (PCR) (Negative) Influenza Type A (PCR) (Negative) Influenza Type B (PCR) (Negative) RSV RNA Qual (PCR) (Negative) 12/07/20 12/07/20 12/07/20 Range/Units 10:49 12:23 13:56 WBC (4.8-10.8) X10*3/uL RBC (4.60-5.80) X10*6/uL Hgb (14.0-18.0) g/dl Hct (42-52) % MCV (80-98) fL MCH (27.0-33.0) pg MCHC (31.0-36.0) g/dl RDW (11.0-16.0) % Plt Count (160-400) X10*3/uL MPV (9.4-12.4) fL Immature Gran % (Auto) (0.0-0.4) % Neut % (Auto) (45-73) % Lymph % (Auto) (20-40) % Collin % (Auto) (2-11) % Eos % (Auto) (0-4) % Baso % (Auto) (0-2) % Lymph # (Auto) (1.2-4.9) X10*3/uL Collin # (Auto) (0.1-1.2) X10*3/uL Eos # (Auto) (0.0-0.4) X10*3/uL Baso # (Auto) (0.0-0.2) X10*3/uL Abs Immat Gran (auto) (0.00-0.03) X10*3/uL Absolute Neuts (auto) (2.0-8.3) X10*3/uL Absolute Nucleated RBC (0.0-0.012) X10*3/uL Nucleated RBC % (auto) (0.0-0.2) /100WBC PT 13.3 H (10.8-13.0) SEC INR 1.1 (0.9-1.1) APTT 28.6 (24.1-38.0) SEC D-Dimer 253 NG/ML Sodium (135-145) mmol/L Potassium (3.3-5.1) mmol/L Chloride (96-108) mmol/L Carbon Dioxide (22-29) mmol/L Anion Gap (12-20) BUN (9-16) mg/dL Creatinine (0.5-1.4) mg/dL Estim Creat Clear Calc Estimated GFR POC Glucose (60-115) mg/dL Random Glucose (60-115) mg/dL Calcium (8.4-10.2) mg/dL Magnesium (1.6-2.6) mg/dL Total Bilirubin (0.0-1.0) mg/dL Direct Bilirubin (0.0-0.5) mg/dL AST (5-37) U/L ALT (0-40) U/L Alkaline Phosphatase (39-117) U/L Troponin I High Sens 28.5 (<3.5-35.0) ng/L B-Natriuretic Peptide (<100) pg/mL Total Protein (6.5-8.0) g/dL Albumin (3.5-5.0) g/dL Coronavirus (PCR) NEGATIVE (Negative) Influenza Type A (PCR) NEGATIVE (Negative) Influenza Type B (PCR) NEGATIVE (Negative) RSV RNA Qual (PCR) NEGATIVE (Negative) 12/07/20 Range/Units 14:13 WBC (4.8-10.8) X10*3/uL RBC (4.60-5.80) X10*6/uL Hgb (14.0-18.0) g/dl Hct (42-52) % MCV (80-98) fL MCH (27.0-33.0) pg MCHC (31.0-36.0) g/dl RDW (11.0-16.0) % Plt Count (160-400) X10*3/uL MPV (9.4-12.4) fL Immature Gran % (Auto) (0.0-0.4) % Neut % (Auto) (45-73) % Lymph % (Auto) (20-40) % Collin % (Auto) (2-11) % Eos % (Auto) (0-4) % Baso % (Auto) (0-2) % Lymph # (Auto) (1.2-4.9) X10*3/uL Collin # (Auto) (0.1-1.2) X10*3/uL Eos # (Auto) (0.0-0.4) X10*3/uL Baso # (Auto) (0.0-0.2) X10*3/uL Abs Immat Gran (auto) (0.00-0.03) X10*3/uL Absolute Neuts (auto) (2.0-8.3) X10*3/uL Absolute Nucleated RBC (0.0-0.012) X10*3/uL Nucleated RBC % (auto) (0.0-0.2) /100WBC PT (10.8-13.0) SEC INR (0.9-1.1) APTT (24.1-38.0) SEC D-Dimer NG/ML Sodium (135-145) mmol/L Potassium (3.3-5.1) mmol/L Chloride (96-108) mmol/L Carbon Dioxide (22-29) mmol/L Anion Gap (12-20) BUN (9-16) mg/dL Creatinine (0.5-1.4) mg/dL Estim Creat Clear Calc Estimated GFR POC Glucose 71 (60-115) mg/dL Random Glucose (60-115) mg/dL Calcium (8.4-10.2) mg/dL Magnesium (1.6-2.6) mg/dL Total Bilirubin (0.0-1.0) mg/dL Direct Bilirubin (0.0-0.5) mg/dL AST (5-37) U/L ALT (0-40) U/L Alkaline Phosphatase (39-117) U/L Troponin I High Sens (<3.5-35.0) ng/L B-Natriuretic Peptide (<100) pg/mL Total Protein (6.5-8.0) g/dL Albumin (3.5-5.0) g/dL Coronavirus (PCR) (Negative) Influenza Type A (PCR) (Negative) Influenza Type B (PCR) (Negative) RSV RNA Qual (PCR) (Negative) ECG Data Attestation: I personally reviewed and interpreted this ECG as follows: ECG interpretation date: 12/07/20 ECG interpretation time: 10:19 Prior ECG tracings: available for review Interpretation: EKG normal sinus rhythm with rate of 70. T-wave inversions in leads 1, aVL, V5 and V6. Unchanged from prior Discharge Plan Discharge Clinical Impression: Atypical chest pain Patient Disposition: Home, Self-Care Instructions: Chest Pain (ED) Additional Instructions: Your blood work, and CT were reassuring today in the ED. It is crucial that you follow-up with your head charger and PCP. If her pain at all persists or worsens, changes, have shortness of breath, fever or swelling in her legs return to the ED immediately Benz an?lisis de bello y la tomograf?a computarizada fueron tranquilizadores hoy en el servicio de urgencias. Es fundamental que realice un seguimiento con benz cardi?logo y benz PCP. Si el dolor persiste o empeora, cambia, tiene dificultad para respirar, fiebre o hinchaz?n en las piernas, regrese al servicio de urgencias de inmediato. Prescriptions: No Action Januvia 100 mg tablet 100 mg PO DAILY 90 Days Qty: 90 RF: 3 aspirin 81 mg tablet,delayed release (DR/EC) 81 mg PO DAILY 90 Days Qty: 90 RF: 3 metformin 1,000 mg tablet 1,000 mg PO BID Qty: 180 RF: 6 cholecalciferol (vitamin D3) 50 mcg (2,000 unit) capsule 50 mcg PO DAILY 30 Days Qty: 30 RF: 6 lisinopril 40 mg tablet 40 mg PO QAM Qty: 90 RF: 2 (DME) lancets [TRUEplus Lancets] 33 gauge misc See Rx Instructions .ROUTE .MEDSUPPLY Qty: 100 RF: 6 (DME) FreeStyle Lite Strips Strip See Rx Instructions .ROUTE .MEDSUPPLY Qty: 100 RF: 6 clopidogrel 75 mg tablet 75 mg PO DAILY 90 Days Qty: 90 RF: 4 levothyroxine 125 mcg tablet 125 mcg PO QAM Qty: 90 RF: 0 gabapentin 300 mg capsule 300 mg PO TID Qty: 90 RF: 1 atorvastatin 80 mg tablet 80 mg PO BEDTIME Qty: 30 RF: 6 pantoprazole 40 mg tablet,delayed release (DR/EC) 40 mg PO QAM Qty: 90 RF: 3 metoprolol tartrate 50 mg tablet 50 mg PO BID 90 Days Qty: 180 RF: 3 loratadine [Claritin] 10 mg tablet 10 mg PO DAILY PRN (Reason: nasal congestion) Qty: 10 RF: 0 meloxicam 15 mg tablet 15 mg PO DAILY Qty: 30 RF: 1 tamsulosin 0.4 mg capsule 0.4 mg PO DAILY RF: 0 folic acid 1 mg tablet 1 mg PO DAILY RF: 0 nitroglycerin 0.4 mg tablet, sublingual 0.4 mg sublingual Q5M PRN (Reason: chest pain) 30 Days Qty: 30 RF: 5 Referrals: Lacho García MD [Physician] - 2 days Print Language: Puerto Rican
[2020-12-07 11:17] VITALS: BP 164/92; PULSE 60; RESP 20; O2SAT 96
[2020-12-07 11:41] LABS: Troponin-I High Sensitivity 24.5 ng/L (<3.5-35.0)
[2020-12-07 11:48] LABS: Alanine Aminotransferase 23 U/L (0-40); Albumin Level 3.9 g/dL (3.5-5.0); Alkaline Phosphatase 62 U/L (39-117); Anion Gap 11 (12-20); Aspartate Amino Transferase 15 U/L (5-37); Bilirubin Direct 0.3 mg/dL (0.0-0.5); Bilirubin Total 0.6 mg/dL (0.0-1.0); Blood Urea Nitrogen 16 mg/dL (9-16); Calcium 9.1 mg/dL (8.4-10.2); Carbon Dioxide 29 mmol/L (22-29); Chloride 104 mmol/L (96-108); Creatinine Clr Calc Pharmacy 86.1; Estimated Glomerular Filt Rate > 60; Glucose Random 92 mg/dL (60-115); Magnesium 1.4 mg/dL (1.6-2.6); Potassium 3.8 mmol/L (3.3-5.1); Sodium 140 mmol/L (135-145); Total Protein 6.7 g/dL (6.5-8.0)
[2020-12-07 11:58] LABS: B Type Natriuretic Peptide 138 pg/mL (<100)
[2020-12-07] MEDS: Magnesium Sulfate/H2O 2 GM/50 ML PIGGYBACK IV (12:12)
[2020-12-07 12:25] VITALS: BP 185/96; PULSE 61; RESP 16; O2SAT 100
[2020-12-07 13:19] LABS: Influenza A PCR NEGATIVE (Negative); Influenza B PCR NEGATIVE (Negative); Resp Syncy Virus RNA Qual PCR NEGATIVE (Negative); SARS COV2 PCR INHOUSE NEGATIVE (Negative)
[2020-12-07 14:00] VITALS: BP 170/89; PULSE 63; RESP 20; TEMP 36.4; O2SAT 97
[2020-12-07 14:16] LABS: Glucose, Whole Blood 71 mg/dL (60-115)
[2020-12-07 14:32] LABS: Troponin-I High Sensitivity 28.5 ng/L (<3.5-35.0)
[2020-12-07 15:26] LABS: D Dimer 253 NG/ML
[2020-12-07 16:00] VITALS: BP 166/85; PULSE 77; RESP 18; O2SAT 100
[2020-12-07] MEDS: iohexoL 350 MG/ML 100 ML INFUS..BTL IV (16:50)
== END 2020-12-07 18:35 | disposition home or self-care (01) ==
PROVIDERS: Physician Assistant; Emergency Provider Internal Medicine; PCP Internal Medicine
DX: R07.89 Other chest pain (principal); Z20.822 Contact with and (suspected) exposure to COVID-19; I10 Essential (primary) hypertension; E11.9 Type 2 diabetes mellitus without complications; E78.5 Hyperlipidemia, unspecified; F19.10 Other psychoactive substance abuse, uncomplicated; Z95.1 Presence of aortocoronary bypass graft; Z79.01 Long term (current) use of anticoagulants; Z79.84 Long term (current) use of oral hypoglycemic drugs; Z79.82 Long term (current) use of aspirin; Z79.899 Other long term (current) drug therapy; Z79.02 Long term (current) use of antithrombotics/antiplatelets
CPT/HCPCS: 0241U; 36415; 70450; 71045; 71275; 80048; 80076; 82947; 83735; 83880; 84484; 85025; 85379; 85610; 85730; 93005; 96365; 96366; 99285; J3475; Q9967

== ENCOUNTER → 2020-12-09 07:43 | Outpatient (REF) | payer OTHER, SELFPAY ==
--- NOTE | 2020-12-09 07:48 | CA_ITS ---
Transthoracic Echocardiogram Patient (Last, First, Middle): Steve Caceres, Gender: Male Date of : 1955 Age: 65 Procedure Date: 12/09/2020 Procedure Type: Transthoracic Echocardiogram Location: OP Height: 180.34 cm Weight: 79.83 kg BSA: 2.00 m2 Heart Rate: bpm BP: 160 / 90 mmHg Shallot Packer: Referring MD: Lacho García MD Symptoms: Z95.1 - Presence of aortocoronary bypass graft Conclusions: - Normal left ventricular size and systolic function. - E/E prime ratio is between 8 and 15 consistent with indeterminate filling pressures. - The basal inferior segment is akinetic. - Normal right ventricular cavity size. There is low normal right ventricular systolic function. - There is no evidence of pericardial effusion. - There is low normal right ventricular systolic function. Findings Left Ventricle Normal left ventricular size and systolic function. There is mildly increased left ventricular wall thickness. The visually estimated ejection fraction is between 55-60%. There is evidence of regional wall motion abnormalities. Abnormal diastolic function is noted. Spectral Doppler is indicative of an impaired relaxation filling pattern. E/E prime ratio is between 8 and 15 consistent with indeterminate filling pressures. Wall Motion Rest Echo Findings The basal inferior segment is akinetic. Right Ventricle Normal right ventricular cavity size. There is low normal right ventricular systolic function. Atria The left atrium is normal in size. Aortic Valve There is a normal trileaflet aortic valve. There is no aortic valve stenosis. There is no aortic valve regurgitation. Mitral Valve Normal mitral valve structure and function. There is trace mitral valve regurgitation. There is no mitral valve stenosis. Pulmonic Valve Normal pulmonic valve structure and function. There is trace pulmonic valve regurgitation. Tricuspid Valve Normal tricuspid valve structure and function. There is trace tricuspid valve regurgitation. Normal right atrial pressure. There is no evidence of pulmonary hypertension. Great Vessels All visible segments of the aorta are normal in size. The visualized portions of the pulmonary artery and branches are normal. Venous The inferior vena cava is normal in size and collapses greater than 50% with inspiration. Pericardium/Pleural There is no evidence of pericardial effusion. Prior Study Comparison Changes noted compared to prior study dated: 10/07/2020. EF 55-60%, low normal RV function. Measurements 2D Linear Measurements RVIDd: 3.25 RVIDd Index: 1.63 IVSd: 1.21 0.6-0.9/0.6-1.0 cm LVIDd: 4.58 3.9-5.3/4.2-5.9 cm LVIDd Index: 2.29 2.4-3.2/2.2-3.1 cm/m2 LVIDs: 3.30 2.0-3.6 cm LVPWd: 1.64 0.7-1.1 cm Ao Root: 3.40 2.1-3.5 cm LA Diam: 4.30 2.7-3.8/3.0-4.0 cm LAIDs Index: 2.15 1.5-2.3 cm/m2 LV Mass: 326.66 67-162/88-224 g LV Mass Index: 163.33 43-95/49-115 g/m2 LVOT Diam: 2.30 3.0+(-)1.3 cm 2D Systolic Function EF 4C: 35.00 >55% EF 2C: 48.70 >55% Mitral Valve MV Pk E: 0.79 MV PK A: 1.20 MV Decel Time: 285.00 E/A: 0.70 E'Lateral: 8.22 E'Medial: 5.61 E/E' Med: 14.00 E/E' Lat: 9.60 Aortic Valve AoV Pk Fermin: 1.31 AoV Mn Fermin: 0.97 AoV VTI: 0.24 AoV Pk Grad: 7.00 Aov Mn Grad: 4.00 CEDRIC Cont.VTI: 3.26 LVOT LVOT Pk Fermin: 0.88 LVOT Mn Fermin: 0.61 LVOT VTI: 0.19 LVOT Pk Grad: 3.00 LVOT Mn Grad: 2.00 LVOT Diam: 2.30 LVOT Area: 4.15 Diastolic Function MV Pk E: 0.79 MV Pk A: 1.20 E/A: 0.70 E'Medial: 5.61 E/E' Med: 14.00 E' Laterial: 8.22 E/E' Lat: 9.60 Tricuspid Valve TR Pk Fermin: 2.56 TR Pk Grad: 26.00 RA Press: 3.00 RVSP: 29.00 Great Vessels Aorta Ao Root-2D: 3.40 2.0-3.7 cm Ao Asc: 3.30 2.1-3.4 cm Ao Arch: 2.50 Updated in Other Vendor System with Status of Final Cosme High MD electronically signed on 12/11/2020 2:39:12 PM with status of Final
== END ==
LOC: HO.CARD 07:43
PROVIDERS: PCP Internal Medicine; Visit Provider Internal Medicine
DX: Z95.1 Presence of aortocoronary bypass graft (principal)
CPT/HCPCS: 93306

== ENCOUNTER 2020-12-14 10:35 | Outpatient (REF) | payer OTHER, SELFPAY ==
--- NOTE | ~2020-12-14 | US_ITS ---
EXAMINATION: Ultrasound arterial duplex lower extremity left CLINICAL HISTORY: Left leg pain TECHNIQUE: Grayscale color and Doppler imaging of the arteries of the left lower extremity including waveform spectral analysis. FINDINGS: LEFT LEG: Left direct duplex Doppler findings: There is evidence of mild vessel wall calcification. * Common femoral artery: 112 cm/s, Diastolic flow reversal: Yes * Superficial femoral artery (proximal, mid, distal): 98, 94 and 54 cm/s, Diastolic flow reversal: No. Biphasic. * Popliteal artery: 139 cm/s, Diastolic flow reversal: Yes * Posterior tibial artery: 43 cm/s, Diastolic flow reversal: No. Biphasic. US/US arterial duplex LE LT IMPRESSION: Mild vessel wall calcification. Abnormal biphasic flow in the left common femoral, superficial femoral posterior tibial arteries. No occlusion or stenosis seen.
--- NOTE | ~2020-12-14 | US_ITS ---
EXAMINATION: US VENOUS ULTRASOUND WITH DOPPLER LOWER EXTREMITY, LEFT CLINICAL INFORMATION: Left leg pain. History of recent cardiac bypass with harvested left saphenous vein COMPARISON: None TECHNIQUE: Ultrasound of the deep veins is performed from the hip to the calf with compression sonography and color and pulse Doppler assessment. Spectral analysis with color-flow imaging is performed. FINDINGS: There is normal venous compression and respiratory variation and augmented flow. The visualized common femoral vein, superficial femoral vein, profunda femoral vein, popliteal vein, and the trifurcation region shows no evidence of deep venous thrombosis. There is no significant popliteal fossa cyst. Palpable abnormality corresponds to superficial thrombophlebitis of a varicosity that communicates with the remaining saphenous vein in the mid to distal thigh. US/US venous duplex LE LT IMPRESSION: No DVT demonstrated in the left lower extremity. Palpable abnormality corresponds to superficial thrombophlebitis of a varicosity that communicates with the remaining saphenous vein in the left mid to distal thigh.
== END 2020-12-14 10:36 | disposition home or self-care (01) ==
LOC: HO.US 10:35
PROVIDERS: Visit Provider Physician Assistant
DX: M79.605 Pain in left leg (principal)
CPT/HCPCS: 93926; 93971

== ENCOUNTER 2020-12-14 11:33 | Emergency (ER) | payer OTHER, SELFPAY ==
[2020-12-14 11:37] VITALS: BP 160/81; PULSE 70; RESP 16; TEMP 36.8; O2SAT 97; BMI 24.4
--- NOTE | 2020-12-14 13:46 | ED.EXTPRO ---
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 Had venous and arterial ultrasound performed this morning from outpatient order by PCP due to continued complaints of LLE pain S/P CABG. Reports associated numbness/tingling. Reports a chronic chest wall discomfort since procedure, unchanged. Denies known injury/trauma or falls, fever, chills, weakness, SOB. Reports compliance with all home medications MD Complaint: extremity pain Related Data Home Medications Medication Instructions Recorded Confirmed folic acid 1 mg tablet 1 mg PO DAILY 06/13/20 12/06/20 tamsulosin 0.4 mg capsule 0.4 mg PO DAILY 06/13/20 12/06/20 Previous Rx's Medication Instructions Recorded aspirin 81 mg tablet,delayed 81 mg PO DAILY 90 Days #90 tab 05/05/20 release sitagliptin 100 mg tablet 100 mg PO DAILY 90 Days #90 tab 05/05/20 metformin 1,000 mg tablet 1,000 mg PO BID #180 tab 05/10/20 cholecalciferol (vitamin D3) 50 50 mcg PO DAILY 30 Days #30 cap 07/05/20 mcg (2,000 unit) capsule lisinopril 40 mg tablet 40 mg PO QAM #90 tab 07/30/20 blood sugar diagnostic #100 ea 08/02/20 lancets 33 gauge #100 ea 08/02/20 nitroglycerin 0.4 mg sublingual 0.4 mg SUBLINGUAL Q5M PRN 30 Days 09/13/20 tablet #30 tab clopidogrel 75 mg tablet 75 mg PO DAILY 90 Days #90 tab 09/22/20 levothyroxine 125 mcg tablet 125 mcg PO QAM #90 tab 09/25/20 loratadine [Claritin] 10 mg PO DAILY PRN #10 tab 10/03/20 gabapentin 300 mg capsule 300 mg PO TID #90 cap 11/15/20 atorvastatin 80 mg tablet 80 mg PO BEDTIME #30 tab 11/17/20 metoprolol tartrate 50 mg tablet 50 mg PO BID 90 Days #180 tab 11/21/20 pantoprazole 40 mg tablet,delayed 40 mg PO QAM #90 tab 11/21/20 release meloxicam 15 mg tablet 15 mg PO DAILY #30 tab 12/06/20 Allergies Allergy/AdvReac Type Severity Reaction Status Date / Time amlodipine AdvReac Unknown leg edema Verified 12/06/20 12:50 Review of Systems Review of Systems: Constitutional: No Fever, No Chills Cardiovascular: No Chest Pain, No SOB, No Dyspnea on Exertion, No Edema Respiratory: No Cough, No Dyspnea Gastrointestinal: No Nausea, No Vomiting, No Abdominal pain Genitourinary: No Dysuria, No Urinary Frequency, No Hematuria, No Flank Pain Musculoskeletal: +LLE pain, No Myalgias, No Joint Swelling Skin: No Skin Lesions, No rash Neuro: No Weakness, + Numbness, + Paresthesias, No Loss of Consciousness Yes all other systems are reviewed and are negative FOR[facility]LY [facility] Past Medical History Attestation statement: The following information was validated with the patient. Medical History Acquired hypothyroidism Atherosclerotic cardiovascular disease Coronary artery arteriosclerosis Dyslipidemia Essential hypertension NSVT (nonsustained ventricular tachycardia) Type 2 diabetes mellitus with diabetic polyneuropathy Surgical History History of cardiac catheterization Family History Family History Father No problems noted. Mother No problems noted. Social History Social History Alcohol intake: never Smoking Status: Never smoker Advance Directives: Yes Advance Directives on File: Yes Advance Directives Date on File: 10/03/20 Physical Exam Vital Signs: Vital Signs: Last Vital Signs Temp 98.3 F 12/14/20 11:37 Pulse 70 12/14/20 11:37 Resp 16 12/14/20 11:37 BP 160/81 H 12/14/20 11:37 Pulse Ox 97 12/14/20 11:37 Body Mass Index 24.4 Const: General: cooperative and healthy appearing Orientation/consciousness: patient oriented x3 Limitations: no limitations HENMT: Head: Yes normal to inspection Ears: hearing grossly normal bilaterally General nose exam: Normal external nose present Face and sinus: Yes normal facial exam Eyes: General: appearance normal, both eyes and all related structures EOM: EOMs intact bilaterally Neck: Neck: Yes normal visual inspection Resp: Effort & Inspection: normal respiratory effort Cardio: Rate: regular rate Peripheral pulses: dorsalis pedis present GI: Inspection: Yes normal to inspection Skin: Rashes: no rashes Wounds: no wounds Neuro: General: patient oriented x3, tone normal and moves all extremities Gait exam (Neuro): Normal gait present Motor exam (neuro): 5/5 motor strength present throughout Extrem: Other: No left lower extremity edema or calf tenderness. + superficial thrombophlebitis noted to left internal thigh at prior surgical site, no overlying cellulitis/erythema, no fluctuance or induration General: Yes normal to inspection Course Course Course Narrative: US venous duplex LE LT IMPRESSION: No DVT demonstrated in the left lower extremity. Palpable abnormality corresponds to superficial thrombophlebitis of a varicosity that communicates with the remaining saphenous vein in the left mid to distal thigh. US arterial duplex LE LT IMPRESSION: Mild vessel wall calcification. Abnormal biphasic flow in the left common femoral, superficial femoral posterior tibial arteries. No occlusion or stenosis seen. >> patient eloped the ED prior to being able to discuss results. I [employer] patient's PCP to make aware -[id number]--patient return to the ED results were discussed with financial retirement plan specialist including discharge instructions and worrisome signs and symptoms. MDM - Extremity (Nontraumatic) MDM Narrative Medical decision making narrative: 65-year-old male with a past medical history BPH, HTN, GERD, substance abuse, hypothyroid, hyperlipidemia, nonsustained ventricular tachycardia, PVD, neuropathy, diabetes, vitamin-D deficiency, s/p CABGx3 on 10/17/2020 at [facility] on ASA/Plavix presenting to the ED sent in by PCP for abnormal venous duplex ultrasound from this morning. On exam vital signs stable, NAD/well-appearing, physical exam as above. Concern for superficial thrombophlebitis vs DVT vs PAD. Low concern for ACS/PE as symptoms are chronic and patient is anticoagulated Plan: Obtain radiologist reads from ultrasounds from this morning Discharge Plan Discharge Clinical Impression: Superficial thrombophlebitis Qualifiers: Superficial thrombophlebitis-Involved body area: lower extremity Laterality: left Qualified Code(s): I80.02 - Phlebitis and thrombophlebitis of superficial vessels of left lower extremity Patient Disposition: Home, Self-Care Instructions: Superficial Thrombophlebitis (ED) Additional Instructions: You have superficial vein clots, keep an eye on the area if they begin to look infected, red, there streaking, or you have fever please return to the ED Apply warm compresses Take Tylenol for pain Follow-up with your doctor Prescriptions: No Action Januvia 100 mg tablet 100 mg PO DAILY 90 Days Qty: 90 RF: 3 aspirin 81 mg tablet,delayed release (DR/EC) 81 mg PO DAILY 90 Days Qty: 90 RF: 3 metformin 1,000 mg tablet 1,000 mg PO BID Qty: 180 RF: 6 cholecalciferol (vitamin D3) 50 mcg (2,000 unit) capsule 50 mcg PO DAILY 30 Days Qty: 30 RF: 6 lisinopril 40 mg tablet 40 mg PO QAM Qty: 90 RF: 2 (DME) lancets [TRUEplus Lancets] 33 gauge misc See Rx Instructions .ROUTE .MEDSUPPLY Qty: 100 RF: 6 (DME) FreeStyle Lite Strips Strip See Rx Instructions .ROUTE .MEDSUPPLY Qty: 100 RF: 6 clopidogrel 75 mg tablet 75 mg PO DAILY 90 Days Qty: 90 RF: 4 levothyroxine 125 mcg tablet 125 mcg PO QAM Qty: 90 RF: 0 gabapentin 300 mg capsule 300 mg PO TID Qty: 90 RF: 1 atorvastatin 80 mg tablet 80 mg PO BEDTIME Qty: 30 RF: 6 pantoprazole 40 mg tablet,delayed release (DR/EC) 40 mg PO QAM Qty: 90 RF: 3 metoprolol tartrate 50 mg tablet 50 mg PO BID 90 Days Qty: 180 RF: 3 loratadine [Claritin] 10 mg tablet 10 mg PO DAILY PRN (Reason: nasal congestion) Qty: 10 RF: 0 meloxicam 15 mg tablet 15 mg PO DAILY Qty: 30 RF: 1 tamsulosin 0.4 mg capsule 0.4 mg PO DAILY RF: 0 folic acid 1 mg tablet 1 mg PO DAILY RF: 0 nitroglycerin 0.4 mg tablet, sublingual 0.4 mg sublingual Q5M PRN (Reason: chest pain) 30 Days Qty: 30 RF: 5 Referrals: Shu Hernandez MD [Primary Care Provider] - 2 days Interventions: ED Discharge Assessment Last Done: 12/14/20 14:44 Discharge Date/Time: 12/14/20 14:45 Print Language: Kyrgyz
--- NOTE | 2020-12-14 13:54 | PC.NURSE ---
PT REQUESTS GREEK SPEAKING PERSON, RN EXPLAINED SHE CALLED [facility] [employer]AT LEVER OPERATOR WAS AWAITING HER ARRIVAL, PT BECOMING UPSET, HUGO LEIGH SPOKE WITH PT EXPLAINED WE WERE WAITING FOR THE OUTPT TEST RESULTS HE HAD DONE TODAY, PT STILL UNHAPPYT AND PT SAID IM LEAVING
--- NOTE | 2020-12-14 14:23 | PC.NURSE ---
PT RETURNED TO [facility], REMAINS SITTING IN CHAIR AWAITING PROVIDER/RESULTS
== END 2020-12-14 14:45 | disposition home or self-care (01) ==
PROVIDERS: Emergency Provider Emergency Medicine Emergency Medical Services; PCP Internal Medicine
DX: I80.02 Phlebitis and thrombophlebitis of superficial vessels of left lower extremity (principal); R60.0 Localized edema; I10 Essential (primary) hypertension; I25.10 Atherosclerotic heart disease of native coronary artery without angina pectoris; E11.42 Type 2 diabetes mellitus with diabetic polyneuropathy; Z79.84 Long term (current) use of oral hypoglycemic drugs; Z79.82 Long term (current) use of aspirin; Z79.899 Other long term (current) drug therapy
CPT/HCPCS: 99283

== ENCOUNTER → 2020-12-20 13:29 | Outpatient (BNVA) | payer OTHER, SELFPAY | PROVIDERS: PCP Internal Medicine; Referring Provider Internal Medicine; Visit Provider Internal Medicine | DX: I25.10 Atherosclerotic heart disease of native coronary artery without angina pectoris (principal); I47.2 Ventricular tachycardia; I10 Essential (primary) hypertension; E11.8 Type 2 diabetes mellitus with unspecified complications; Z95.1 Presence of aortocoronary bypass graft | CPT/HCPCS: 93005; 99212 ==

== ENCOUNTER → 2021-01-16 10:26 | Outpatient (BNVA) | payer OTHER, SELFPAY | PROVIDERS: PCP Internal Medicine; Referring Provider Internal Medicine; Visit Provider Internal Medicine | DX: I25.10 Atherosclerotic heart disease of native coronary artery without angina pectoris (principal); I47.2 Ventricular tachycardia; I10 Essential (primary) hypertension; E11.8 Type 2 diabetes mellitus with unspecified complications; Z95.1 Presence of aortocoronary bypass graft; Z79.899 Other long term (current) drug therapy | CPT/HCPCS: 99212 ==

== ENCOUNTER → 2021-03-13 09:12 | Outpatient (BNVA) | payer OTHER, SELFPAY | PROVIDERS: PCP Internal Medicine; Referring Provider Internal Medicine; Visit Provider Physician Assistant | DX: Z95.1 Presence of aortocoronary bypass graft (principal); Z78.9 Other specified health status; Z86.010 Personal history of colon polyps | CPT/HCPCS: Q3014 ==

== ENCOUNTER → 2021-04-12 14:30 | Outpatient (BNVA) | payer OTHER, SELFPAY | PROVIDERS: PCP Internal Medicine; Visit Provider Nurse Practitioner Gerontology | DX: E11.42 Type 2 diabetes mellitus with diabetic polyneuropathy (principal); E03.9 Hypothyroidism, unspecified; I25.10 Atherosclerotic heart disease of native coronary artery without angina pectoris; I10 Essential (primary) hypertension; E78.5 Hyperlipidemia, unspecified; Z98.890 Other specified postprocedural states; Z88.8 Allergy status to other drugs, medicaments and biological substances; Z79.4 Long term (current) use of insulin; Z79.899 Other long term (current) drug therapy | CPT/HCPCS: 82947; 83036; 99212 ==

== ENCOUNTER → 2021-05-19 09:23 | Outpatient (BNVA) | payer OTHER, SELFPAY | PROVIDERS: PCP Internal Medicine; Visit Provider Urology | DX: R39.15 Urgency of urination (principal); E11.42 Type 2 diabetes mellitus with diabetic polyneuropathy; Z79.4 Long term (current) use of insulin | CPT/HCPCS: 51798; 99212 ==

== ENCOUNTER → 2021-05-24 09:27 | Outpatient (BNVA) | payer OTHER, SELFPAY | PROVIDERS: PCP Internal Medicine; Referring Provider Nurse Practitioner Primary Care; Visit Provider Internal Medicine | DX: I25.10 Atherosclerotic heart disease of native coronary artery without angina pectoris (principal); I10 Essential (primary) hypertension; I47.2 Ventricular tachycardia; E11.8 Type 2 diabetes mellitus with unspecified complications; Z95.1 Presence of aortocoronary bypass graft | CPT/HCPCS: 93005; 99212 ==

== ENCOUNTER 2021-10-18 15:13 | Emergency (ER) | payer OTHER, SELFPAY ==
--- NOTE | ~2021-10-18 | XR_ITS ---
EXAMINATION: XR CHEST CLINICAL INFORMATION: Left arm pain. Coronary artery disease. COMPARISON: Previous chest x-ray November 2020 TECHNIQUE: 2 views of the chest were obtained. FINDINGS: The cardiac silhouette is enlarged but stable. Post-CABG changes are seen. There is slight elevation of the right hemidiaphragm that is stable. The lungs are clear. There is no pleural effusion or pneumothorax. There are degenerative changes of the spine. XR/XR chest 2V IMPRESSION: Slightly enlarged cardiac silhouette similar to previous exams. Post-CABG changes. No evidence for acute disease in the chest.
--- NOTE | ~2021-10-18 | CT_ITS ---
EXAMINATION: CT ANGIOGRAM CHEST WITH CONTRAST CLINICAL INFORMATION: Unequal blood pressure and neck pain. Evaluate for dissection. COMPARISON: CTA of the chest dated from 12/07/2020. TECHNIQUE: Images were obtained from the thoracic inlet to below the upper abdomen following the administration of 60 mL of Omnipaque 350 intravenous contrast. MIP images were also constructed by the technologist on the CT console. This CT examination was performed using dose optimization techniques as appropriate, variously including the following: *Automated exposure control. *Adjustment of mA and/or kV according to patient size (this includes techniques or standardized protocols for targeted exams where dose is matched to indication/reason for exam; i.e. extremities or head). *Use of iterative reconstruction technique. DLP: 378 mGy-cm FINDINGS: VASCULAR: The thoracic aorta is normal in caliber without evidence of dissection. Redemonstration of a 2 vessel branching pattern of the aortic arch. Scattered atherosclerotic disease. Surgical changes from prior CABG. Evaluation of intramural hematoma of the thoracic aorta is suboptimal in the absence of a dry noncontrast phase. No evidence of central pulmonary emboli. NONVASCULAR: Lung: Low lung volumes with subsegmental atelectasis. No focal consolidation, pleural effusion or pneumothorax. A small cystic lucencies in the right upper lobe (5:179) is again noted. A few subcentimeter calcified granulomas are redemonstrated. It is important to know that evaluation of a small pulmonary nodule is limited due to respiratory motion. Mediastinum: Cardiomegaly with postoperative changes from prior CABG. Coronary calcifications. No lymphadenopathy. Normal appearance of the thyroid gland. Pericardium/Pleura: No pleural effusion. No pleural mass or thickening. No pneumothorax. Chest Wall/Axilla: No lymphadenopathy by size criteria. Redemonstration of swelling in the subcutaneous tissues of the back. Upper Abdomen: No abnormalities. Osseus Structures: No acute or aggressive osseous findings. CT/CT angio chest aorta IMPRESSION: No evidence of aortic dissection.
--- NOTE | ~2021-10-18 | CT_ITS ---
EXAMINATION: CT ANGIOGRAM HEAD CT ANGIOGRAM NECK CLINICAL INFORMATION: Neck pain. Carotid dissection. Hypertension. Left arm pain. COMPARISON: CT head from 12/07/2020 and 08/21/2011. TECHNIQUE: Initial noncontrast outsole rounder imaging of the head and neck was performed. Noncontrast head CT was also performed. Test bolus sequences followed by intravenous administration 60 mL of Omnipaque 350. Helical imaging was performed in the axial plane from the aortic arch to the skull vertex. Delayed postcontrast imaging of the head was also performed. The data was processed at the certified neurodiagnostic technologist's workstation for generation of MIP sequences. Angled MIPs and volume rendered reformatted images were also generated at an offline 3D workstation. Stenoses are assessed in accordance with NASCET criteria unless otherwise indicated. This CT examination was performed using dose optimization techniques as appropriate, variously including the following: *Automated exposure control. *Adjustment of mA and/or kV according to patient size (this includes techniques or standardized protocols for targeted exams where dose is matched to indication/reason for exam; i.e. extremities or head). *Use of iterative reconstruction technique. DLP: 2387 mGy-cm FINDINGS: CT Head: There is no evidence of acute intracranial hemorrhage or edematous territorial infarction. Scattered hypoattenuation in the periventricular and deep white matter are consistent with moderate microangiopathy. Chronic region of encephalomalacia in the anterolateral left temporal lobe. No new loss of shoemaker-white matter differentiation. The ventricles are normal in size and configuration. No evidence for obstructive hydrocephalus. No abnormal mass effect or midline shift. No extra-axial fluid collections. No pathologic intra-axial enhancement or regional oligemia. No acute soft tissue or osseous abnormalities. 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 Chronic deformity of the left zygomatic arch, lateral wall of the left orbit, and left lamina preparation. Multiple metallic fragments throughout the soft tissues along the left temporal fossa. Mild mucosal thickening of the paranasal sinuses. The mastoid air cells and middle ear cavities are clear. CT Neck: The thyroid gland is atrophic. 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 The remaining cervical soft tissues are within normal limits. No evidence of acute fracture or traumatic subluxation of the cervical spine. Advanced degenerative disc disease from C4-C7 with disc-osteophyte complex formation. Facet and uncovertebral joint arthropathy leads to osseous encroachment on the neural foramina from C2-T2. CT Upper Chest: Prior median sternotomy for CABG. The visualized lung apices and upper mediastinum are within normal limits. Neck CTA: Aortic Arch: Normal contour and caliber with mild calcific atherosclerotic disease. Two vessel branching pattern of the arch with left common carotid artery arising from the brachiocephalic trunk. Great Vessel Origins: No significant stenosis of the branch origins. Right Common Carotid Artery: No focal stenosis or occlusion. Cervical Right Internal Carotid Artery: Mild calcific atherosclerotic disease of the carotid bulb and proximal internal carotid artery without flow-limiting stenosis. Left Common Carotid Artery: No focal stenosis or occlusion. Cervical Left Internal Carotid Artery: Mild calcific atherosclerotic disease of the carotid bulb and proximal internal carotid artery without flow-limiting stenosis. Cervical Right Vertebral Artery: No focal stenosis or occlusion. Cervical Left Vertebral Artery: Dominant. No focal stenosis or occlusion. Brain CTA: Intracranial Internal Carotid Arteries: Calcific atherosclerotic disease of the intracranial internal carotid arteries without occlusion or flow-limiting stenosis. Right Anterior Cerebral Artery: Normal A1 segment. Normal opacification of the distal JACQUES segments. Left Anterior Cerebral Artery: Normal A1 segment. Normal opacification of the distal JACQUES segments. Anterior Communicating Artery: Normal. Right Middle Cerebral Artery: Normal M1 segment of the MCA without focal stenosis or occlusion. Normal arborization of the distal segments. Left Middle Cerebral Artery: Normal M1 segment of the MCA without focal stenosis or occlusion. Normal arborization of the distal segments. Right Vertebral Artery: Normal V4 segment. Normal opacification of the proximal segments of the posterior inferior cerebellar artery. Left Vertebral Artery: Normal V4 segment. The posterior inferior cerebellar artery is not well opacified; however, there is no CT evidence of acute occlusion. Basilar Artery: Normal without focal stenosis or occlusion. Normal appearance of the proximal superior cerebellar arteries. Right Posterior Cerebral Artery: Normal P1 segment. Normal opacification of the distal MARKETING DEVELOPMENT SPECIALIST segments. Left Posterior Cerebral Artery: Normal P1 segment. Normal opacification of the distal MARKETING DEVELOPMENT SPECIALIST segments. Normal opacification of the superior sagittal, straight, transverse, and sigmoid sinuses. CT/CT angio head neck IMPRESSION: 1. No evidence of acute intracranial hemorrhage or edematous territorial infarction. Moderate underlying microangiopathy. Chronic encephalomalacia of the anterolateral left temporal lobe. 2. CTA of the head and neck without proximal occlusion or flow-limiting stenosis. 3. Moderate to advanced multilevel degenerative spondyloarthropathy of the cervical spine. 4. Ossification of the left-sided stylohyoid ligament. Recommend correlation with symptoms of potential Salisbury syndrome.
[2021-10-18 15:31] VITALS: BP 212/102; PULSE 70
--- NOTE | 2021-10-18 15:56 | ECG_ITS ---
Test Reason : hypertension Blood Pressure : / mmHG Vent. Rate : 064 BPM Atrial Rate : 064 BPM P-R Int : 154 ms QRS Dur : 102 ms QT Int : 416 ms P-R-T Axes : 064 067 075 degrees QTc Int : 429 ms Normal sinus rhythm Possible Left atrial enlargement Borderline ECG When compared with ECG of 07-DEC-2020 10:19, ST no longer elevated in Inferior leads T wave inversion no longer evident in Lateral leads Referred By: Maday Maxwell Electronically Signed By:SCOTT DUGGAN MD
--- NOTE | 2021-10-18 15:59 | ED_ITS ---
HPI - General Adult General Chief complaint: General Medical Stated complaint: HTN, Left arm pain Time Seen by Provider: 10/18/21 15:31 History of Present Illness HPI narrative: 66-year-old Slovak-speaking male presents with pain in his left neck and left arm. The pain started in his left neck yesterday, and it goes from his left ear and radiates all the way down his left arm. The pain is constant and sharp and a 9/10. No trauma. Pain is less in his left arm now on more in his left neck. Denies chest pain, shortness of breath, nausea, diaphoresis, vomiting or diarrhea, cough, headache, dizziness, gait disturbance, visual disturbance. Patient wonders if it is because he slept on his neck wrong. Related Data Home Medications Medication Instructions Recorded Confirmed folic acid 1 mg tablet 1 mg PO DAILY 06/13/20 04/12/21 Previous Rx's Medication Instructions Recorded clopidogrel 75 mg tablet 75 mg PO DAILY 90 Days #90 tab 09/22/20 loratadine 10 mg tablet (Claritin) 10 mg PO DAILY PRN #10 tab 10/03/20 pantoprazole 40 mg tablet,delayed 40 mg PO QAM #90 tab 11/21/20 release atenolol 100 mg tablet 100 mg PO DAILY #90 tab 12/20/20 isosorbide mononitrate 120 mg 120 mg PO DAILY #90 tab 12/20/20 tablet,extended release 24 hr ranolazine 500 mg tablet,extended 500 mg PO BID #180 tab 12/20/20 release,12 hr tamsulosin 0.4 mg capsule 0.4 mg PO DAILY #90 cap 02/01/21 hydralazine 50 mg tablet 50 mg PO TID #270 tab 02/27/21 meloxicam 15 mg tablet 15 mg PO DAILY #30 tab 03/02/21 blood sugar diagnostic (FreeStyle #100 ea 04/04/21 Lite Strips) lancets 33 gauge (TRUEplus Lancets) #100 ea 04/04/21 aspirin 81 mg tablet,delayed 81 mg PO DAILY 90 Days #90 tab 05/01/21 release lisinopril 40 mg tablet 40 mg PO QAM #90 tab 05/01/21 sitagliptin 100 mg tablet (Januvia) 100 mg PO DAILY 90 Days #90 tab 05/01/21 nitroglycerin 0.4 mg sublingual 0.4 mg SUBLINGUAL Q5M PRN 30 Days 05/24/21 tablet #30 tab levothyroxine 125 mcg tablet 125 mcg PO QAM #90 tab 05/29/21 cholecalciferol (vitamin D3) 50 50 mcg PO QAM #30 cap 07/18/21 mcg (2,000 unit) capsule alcohol swabs (Alcohol Prep Pads) 1 pad TOPICAL .twice a day 90 Days 08/17/21 #100 ea gabapentin 300 mg capsule 300 mg PO TID #90 cap 08/20/21 atorvastatin 80 mg tablet 80 mg PO BEDTIME 30 Days #30 tab 09/20/21 metformin 500 mg tablet 500 mg PO BID #60 tab 09/20/21 Allergies Allergy/AdvReac Type Severity Reaction Status Date / Time amlodipine AdvReac Unknown leg edema Verified 05/24/21 09:46 Review of Systems Constitutional: Constitutional: Denies body ache(s), Denies chills, Denies fatigue, Denies fever(s), Denies headache(s), Denies malaise and Denies weakness Eyes: Eyes: Denies blurry vision and Denies diplopia ENT: Denies dizziness, Denies otalgia, Denies headache(s), Reports mouth pain and Denies sore throat Cardiovascular: Cardiovascular: Denies chest pain, Denies syncope, Denies leg edema, Denies lightheadedness, Denies Loss of Consciousness, Denies palpitations and Denies dyspnea Respiratory: Respiratory: Denies chest congestion, Denies cough and Denies dyspnea Gastrointestinal: Gastrointestinal: Denies abdominal pain, Denies hematochezia, Denies constipation, Denies diarrhea, Denies nausea and Denies vomiting Genitourinary: Genitourinary: Reports no additional male genitourinary complaints Musculoskeletal: Musculoskeletal: Denies abnormal gait, Denies muscle weakness and Reports radiating pain into limb (left arm) Comments: left neck pin Integumentary/Breasts: Skin/Breast: Reports system reviewed and no additional complaints, except as docu Neurologic: Denies abnormal gait, Denies dizziness, Denies syncope, Denies headache(s) and Denies weakness Endocrine: Endocrine: Denies fatigue and Denies palpitations PMFSH Past Medical History Medical History Acquired hypothyroidism Atherosclerotic cardiovascular disease Coronary artery arteriosclerosis Dyslipidemia Essential hypertension NSVT (nonsustained ventricular tachycardia) Type 2 diabetes mellitus with diabetic polyneuropathy Surgical History History of cardiac catheterization History of colon resection Hx of colonoscopy Family History Family History Father No problems noted. Mother No problems noted. Social History Social History Alcohol intake: never Patient Tobacco Use Status: Never used Tobacco Use of substances other than those prescribed or required for medical reasons: No Advance Directives: Yes Advance Directives on File: Yes Advance Directives Date on File: 10/03/20 Physical Exam ED Vital Signs: Vital Signs - 24 hr 10/18/21 16:29 Temperature 97.9 F Pulse Rate 60 Respiratory Rate 20 Blood Pressure 191/97 H Pulse Oximetry 98 BMI result Body Mass Index 24.7 Const General: alert and awake Nutritional Appearance: obese centrally obese Orientation/consciousness: patient oriented x3 Limitations: no limitations HENMT Head: Yes normal to inspection, Yes No palpable skull fracture present, Yes nor mocephalic and Yes atraumatic Ears: hearing grossly normal bilaterally General nose exam: Normal external nose present Face and sinus: Yes normal facial exam Mouth: Normal oral and palatal mucosa present Throat: Yes posterior oropharynx normal Eyes Pupils: Equal, round and reactive pupils present EOM: EOMs intact bilaterally Neck Neck: Yes normal visual inspection, Yes full ROM, Yes no lymphadenopathy, Yes no meningeal signs, Yes trachea midline, Yes supple, Yes tender (left soft tissues) and No torticollis Resp Effort & Inspection: normal respiratory effort and able to speak in complete sentences Auscultation: clear to auscultation bilaterally, no crackles, no rales, no rhonc hi and no wheezes Cardio Rate: regular rate Rhythm: regular rhythm Heart sounds: S1 normal heart sound present and S2 normal heart sound present GI Inspection: Yes obesity Palpation (GI): Soft to palpation, not firm, nontender, no guarding and not rigid Percussion: Yes normal to percussion Auscultation: normal bowel sounds Back/Spine/Pelvis Cervical Spine: normal cervical lordosis, cervical ROM normal, cervical spasm, No Cervical spine tenderness, No step off deformity and No cervical ROM abnormal Skin General skin exam: no rashes or lesions noted Neuro General: patient oriented x3 and no meningeal signs Cranial nerves: Yes Equal, round and reactive pupils present Extrem Other: right UE deformity; no right hand Left upper extremity: normal to inspection, full ROM, normal capillary refill, no joint enlargement, shoulder/upper arm Details: inspection abnormal and axillary nerve sensory function normal; Negative for no tenderness and no swelling and elbow/forearm Details: normal to inspection, normal ROM and distal pulses intact; Negative for no tenderness, no swelling and no ecchymosis Psych Appearance: grossly normal Mental Status: mental status grossly normal Speech and movement: Normal speech and movement present Affect: normal affect Attitude: cooperative Course Course Course Narrative: 66-year-old male with a history of CABG x3 in 2020 at [facility], on aspirin and Plavix, atherosclerotic cardiovascular disease, diabetes, nonsustained ventricular tachycardia, neuropathy, hypothyroid, hypertension, hyperlipidemia, BPH, and pectoral muscle strain, presents with left-sided neck and arm pain that started yesterday. No chest pain, no other symptoms. No truma. Patient was in a program today, and the pain became worse, so he called EMS. He was found to be hypertensive. On exam, pt is hypertensive; 215/99 left arm, 191/97 right arm. Patient is tender to palpate over the soft tissues of his left neck and left upper shoulder. Patient has intact left upper extremity distal pulses, sensation, motor strength, and range of motion. Will do a cardiac rule out, in addition, due to difference in bilateral UE blood pressures (greater than 20mm Hg difference), will get imaging. Will do CTA head and neck to rule out carotid disease, and CT angio chest to rul e out aortic pathology. Discussed with industrial engineering technician; we will reduce IV contrast load. Hydralazine ordered for HTN; pt takes TID, did not get mid-day dose. Labs remarkable for white blood cell count 3.5 Troponin 21.5, EKG similar to prior EKGs, no acute ischemia Signed pt out to DINAH Garcia, pending imaging studies Reevaluation(s) Reevaluation #1: XR/XR chest 2V IMPRESSION: Slightly enlarged cardiac silhouette similar to previous exams. Post-CABG changes. No evidence for acute disease in the chest. Medical Decision Making Lab Data Result diagrams: 10/18/21 16:42 10/18/21 16:42 Labs: Lab Results 10/18/21 10/18/21 10/18/21 Range/Units 16:42 16:42 16:42 WBC 3.5 L (4.8-10.8) X10*3/uL RBC 3.99 L (4.60-5.80) X10*6/uL Hgb 12.0 L (14.0-18.0) g/dl Hct 37.0 L (42.0-52.0) % MCV 92.7 (80.0-98.0) fL MCH 30.1 (27.0-33.0) pg MCHC 32.4 (31.0-36.0) g/dl RDW 14.8 (11.0-16.0) % Plt Count 175 (160-400) X10*3/uL MPV 8.8 L (9.4-12.4) fL Immature Gran % (Auto) 0.6 H (0.0-0.4) % Neut % (Auto) 46.6 (45-73) % Lymph % (Auto) 33.9 (20-40) % Cotton % (Auto) 11.9 H (2-11) % Eos % (Auto) 6.4 H (0-4) % Baso % (Auto) 0.6 (0-2) % Lymph # (Auto) 1.2 (1.2-4.9) X10*3/uL Cotton # (Auto) 0.4 (0.1-1.2) X10*3/uL Eos # (Auto) 0.2 (0.0-0.4) X10*3/uL Baso # (Auto) 0.0 (0.0-0.2) X10*3/uL Abs Immat Gran (auto) 0.02 (0.00-0.03) X10*3/uL Absolute Neuts (auto) 1.6 L (2.0-8.3) x10*3/uL Absolute Nucleated RBC 0.000 (0.0-0.012) X10*3/uL Nucleated RBC % (auto) 0.0 (0.0-0.2) /100WBC Sodium 141 (135-145) mmol/L Potassium 4.1 (3.3-5.1) mmol/L Chloride 106 (96-108) mmol/L Carbon Dioxide 27 (22-29) mmol/L Anion Gap 12 (12-20) BUN 10 (9-16) mg/dL Creatinine 1.30 (0.5-1.4) mg/dL Estim Creat Clear Calc 59.5 Estimated GFR 55 Random Glucose 108 (60-115) mg/dL Calcium 9.3 (8.4-10.2) mg/dL Magnesium 1.7 (1.6-2.6) mg/dL Total Bilirubin 0.5 (0.0-1.0) mg/dL AST 23 D (5-37) U/L ALT 30 (0-40) U/L Alkaline Phosphatase 70 (39-117) U/L Troponin I High Sens 21.5 (<3.5-35.0) ng/L Total Protein 7.1 (6.5-8.0) g/dL Albumin 4.1 (3.5-5.0) g/dL ECG Data Interpretation: Normal sinus at a rate of 64, GA interval 154, QRS 102, QTC 429, normal axis, no ST depression or elevation, no T-wave abnormalities. Discharge Plan Discharge Clinical Impression: Neck muscle spasm Prescriptions: No Action clopidogrel 75 mg tablet 75 mg PO DAILY 90 Days Qty: 90 4RF pantoprazole 40 mg tablet,delayed release (DR/EC) 40 mg PO QAM Qty: 90 3RF tamsulosin 0.4 mg capsule 0.4 mg PO DAILY Qty: 90 2RF hydralazine 50 mg tablet 50 mg PO TID Qty: 270 4RF meloxicam 15 mg tablet 15 mg PO DAILY Qty: 30 0RF (DME) FreeStyle Lite Strips Strip See Rx Instructions .ROUTE .MEDSUPPLY Qty: 100 6RF Rx Instructions: 3times a day (DME) lancets [TRUEplus Lancets] 33 gauge misc See Rx Instructions .ROUTE .MEDSUPPLY Qty: 100 6RF Rx Instructions: 3 times a day Januvia 100 mg tablet 100 mg PO DAILY 90 Days Qty: 90 3RF lisinopril 40 mg tablet 40 mg PO QAM Qty: 90 2RF aspirin 81 mg tablet,delayed release (DR/EC) 81 mg PO DAILY 90 Days Qty: 90 3RF levothyroxine 125 mcg tablet 125 mcg PO QAM Qty: 90 1RF Rx Instructions: NEEDS APPOINTMENT FOR MORE REFILLS cholecalciferol (vitamin D3) 50 mcg (2,000 unit) capsule 50 mcg PO QAM Qty: 30 2RF alcohol swabs [Alcohol Prep Pads] Pads, Medicated 1 pad topical .twice a day 90 Days Qty: 100 3RF gabapentin 300 mg capsule 300 mg PO TID Qty: 90 3RF atorvastatin 80 mg tablet 80 mg PO BEDTIME 30 Days Qty: 30 4RF metformin 500 mg tablet 500 mg PO BID Qty: 60 4RF loratadine [Claritin] 10 mg tablet 10 mg PO DAILY PRN (Reason: nasal congestion) Qty: 10 0RF folic acid 1 mg tablet 1 mg PO DAILY 0RF atenolol 100 mg tablet 100 mg PO DAILY Qty: 90 4RF isosorbide mononitrate 120 mg tablet extended release 24 hr 120 mg PO DAILY Qty: 90 4RF ranolazine 500 mg tablet extended release 12 hr 500 mg PO BID Qty: 180 4RF nitroglycerin 0.4 mg tablet, sublingual 0.4 mg sublingual Q5M PRN (Reason: chest pain) 30 Days Qty: 30 5RF Rx Instructions: take 1 tablet under tongue as needed for Chest pain, may repeat X2 after 5 min. do not exceed 3 doses per episode
[2021-10-18 16:29] VITALS: BP 191/97; PULSE 60; RESP 20; TEMP 36.6; O2SAT 98; BMI 24.7
--- NOTE | 2021-10-18 16:30 | PC.NURSE ---
PT ALERT AND ORIENTED, SKIN APPROPRIATE FOR ETHNICITY, PT REPORTS LEFT SIDED NECK PAIN THAT RADIATES DOWN TO THE SHOULDER THAT STARTED YESTERDAY, NARCISA CHEST PAIN/SOB IS CURRENTLY HYPERTENSIVE STATES THAT HE TOOK HIS BP MEDS TODAY
[2021-10-18] MEDS: Ketorolac Tromethamine 15 MG/ML VIAL IVPUSH (16:45)
[2021-10-18] MEDS: 0.9 % Sodium Chloride 1,000 ML 999 ML IV (16:46)
[2021-10-18 16:47] LABS: MANUAL DIFF FLAG NO
[2021-10-18 16:54] LABS: Basophils Percent Auto 0.6 % (0-2); Eosinophils Absolute Auto 0.2 X10*3/uL (0.0-0.4); Eosinophils Percent Auto 6.4 % (0-4); Imm Gran Abs Auto 0.02 X10*3/uL (0.00-0.03); Imm Gran Pct Auto 0.6 % (0.0-0.4); Lymphocytes Absolute Auto 1.2 X10*3/uL (1.2-4.9); Lymphocytes Percent Auto 33.9 % (20-40); Mean Corpuscular HGB Conc 32.4 g/dl (31.0-36.0); Mean Corpuscular Hemoglobin 30.1 pg (27.0-33.0); Mean Corpuscular Volume 92.7 fL (80.0-98.0); Mean Platelet Volume 8.8 fL (9.4-12.4); Monocytes Absolute Auto 0.4 X10*3/uL (0.1-1.2); Monocytes Percent Auto 11.9 % (2-11); Neutrophils Absolute Auto 1.6 x10*3/uL (2.0-8.3); Neutrophils Percent Auto 46.6 % (45-73); Platelet Count 175 X10*3/uL (160-400); Red Blood Count 3.99 X10*6/uL (4.60-5.80); Red Cell Distribution Width 14.8 % (11.0-16.0); White Blood Count 3.5 X10*3/uL (4.8-10.8)
[2021-10-18 17:11] LABS: Alanine Aminotransferase 30 U/L (0-40); Albumin Level 4.1 g/dL (3.5-5.0); Alkaline Phosphatase 70 U/L (39-117); Anion Gap 12 (12-20); Aspartate Amino Transferase 23 U/L (5-37); Bilirubin Total 0.5 mg/dL (0.0-1.0); Blood Urea Nitrogen 10 mg/dL (9-16); Calcium 9.3 mg/dL (8.4-10.2); Carbon Dioxide 27 mmol/L (22-29); Chloride 106 mmol/L (96-108); Creatinine Clr Calc Pharmacy 59.5; Estimated Glomerular Filt Rate 55; Glucose Random 108 mg/dL (60-115); Magnesium 1.7 mg/dL (1.6-2.6); Potassium 4.1 mmol/L (3.3-5.1); Sodium 141 mmol/L (135-145); Total Protein 7.1 g/dL (6.5-8.0)
[2021-10-18 17:17] LABS: Troponin-I High Sensitivity 21.5 ng/L (<3.5-35.0)
[2021-10-18] MEDS: iohexoL 350 MG/ML 100 ML INFUS..BTL IV ×2 (18:09→18:10)
[2021-10-18 18:11] VITALS: BP 220/99; PULSE 64; RESP 18; O2SAT 96
[2021-10-18] MEDS: hydrALAZINE HCl 50 MG TABLET PO (18:11)
[2021-10-18] MEDS: Cyclobenzaprine HCl 10 MG TABLET PO (18:11)
[2021-10-18 18:45] LABS: COVID-19 Test Negative (Negative)
== END 2021-10-18 20:00 | disposition home or self-care (01) ==
PROVIDERS: Physician Assistant; Emergency Provider Emergency Medicine
DX: M79.602 Pain in left arm (principal); M62.838 Other muscle spasm; M54.2 Cervicalgia; R51.9 Headache, unspecified; R07.89 Other chest pain; I10 Essential (primary) hypertension; Z20.822 Contact with and (suspected) exposure to COVID-19; Z79.899 Other long term (current) drug therapy
CPT/HCPCS: 36415; 70496; 70498; 71046; 71275; 80053; 83735; 84484; 85025; 87635; 93005; 96361; 96374; 99284; 99285; J1885; Q9967

== ENCOUNTER → 2021-11-28 12:44 | Outpatient (BNVA) | payer OTHER, SELFPAY | PROVIDERS: PCP Nurse Practitioner Primary Care; Referring Provider Nurse Practitioner Primary Care; Visit Provider Internal Medicine | DX: Z01.810 Encounter for preprocedural cardiovascular examination (principal); I25.10 Atherosclerotic heart disease of native coronary artery without angina pectoris; I47.2 Ventricular tachycardia; I10 Essential (primary) hypertension; R06.02 Shortness of breath; E11.8 Type 2 diabetes mellitus with unspecified complications; Z95.1 Presence of aortocoronary bypass graft | CPT/HCPCS: 99212 ==

== ENCOUNTER 2021-12-06 08:27 | Outpatient (REF) | payer OTHER, SELFPAY ==
[2021-12-06 10:02] LABS: Anion Gap 12 (12-20); Blood Urea Nitrogen 12 mg/dL (9-16); Calcium 10.4 mg/dL (8.4-10.2); Carbon Dioxide 29 mmol/L (22-29); Chloride 103 mmol/L (96-108); Estimated Glomerular Filt Rate 57; Glucose Random 195 mg/dL (60-115); Potassium 4.2 mmol/L (3.3-5.1); Sodium 140 mmol/L (135-145)
== END 2021-12-06 08:28 | disposition home or self-care (01) ==
LOC: HO.LAB 08:27
PROVIDERS: Visit Provider Internal Medicine
DX: Z13.89 Encounter for screening for other disorder (principal)
CPT/HCPCS: 36415; 80048

== ENCOUNTER → 2021-12-08 14:35 | Outpatient (BNVA) | payer OTHER, SELFPAY | PROVIDERS: PCP Nurse Practitioner Primary Care; Visit Provider Nurse Practitioner Family | DX: M43.02 Spondylolysis, cervical region (principal); M48.8X2 Other specified spondylopathies, cervical region; M54.12 Radiculopathy, cervical region; R68.84 Jaw pain; G89.29 Other chronic pain; Z87.828 Personal history of other (healed) physical injury and trauma | CPT/HCPCS: 99202 ==

== ENCOUNTER → 2022-01-15 07:52 | Outpatient (REF) | payer OTHER, SELFPAY ==
--- NOTE | 2022-01-15 07:59 | CA_ITS ---
Transthoracic Echocardiogram Patient (Last, First, Middle): Steve Caceres, Gender: Male Date of : 1955 Age: 66 Procedure Date: 01/15/2022 Procedure Type: Transthoracic Echocardiogram Location: OP Height: 180.34 cm Weight: 83.46 kg BSA: 2.04 m2 Heart Rate: bpm BP: 146 / 84 mmHg Mat Packer: [id number] Referring MD: Lacho García MD Grease Maker Head: Nghia Chapa MD Symptoms: R06.02 - Shortness of breath Study Quality: Adequate ECG Rhythm: Sinus Conclusions: - 1. Normal LV systolic function with mild LVH with impaired relaxation filling pattern 2. Normal cardiac valvular Doppler 3. Normal RV systolic pressure 4. No gross pericardial effusion Findings Left Ventricle Normal left ventricular size and systolic function. There is mildly increased left ventricular wall thickness. The visually estimated ejection fraction is between 60-65%. Spectral Doppler is indicative of an impaired relaxation filling pattern. E/E prime ratio is between 8 and 15 consistent with indeterminate filling pressures. Wall Motion Rest Echo Findings The basal inferior segment is akinetic. All other scored wall segments showed normal motion. Right Ventricle Normal right ventricular cavity size and systolic function. Atria The left atrium is likely dilated. There is no evidence of interatrial shunt. The right atrium is normal in size. Aortic Valve Normal aortic valve structure and function. There is no aortic valve stenosis. There is no aortic valve regurgitation. Mitral Valve Normal mitral valve structure and function. There is no mitral valve regurgitation. There is no mitral valve stenosis. Pulmonic Valve The pulmonic valve is likely normal. There is trace pulmonic valve regurgitation. Tricuspid Valve Normal tricuspid valve structure. There is trace tricuspid valve regurgitation. The right ventricular systolic pressure is normal. The right ventricular systolic pressure is 30 mmHg. Normal right atrial pressure. There is no evidence of pulmonary hypertension. Great Vessels All visible segments of the aorta are normal in size. The pulmonary artery was not well visualized. Venous The inferior vena cava is normal in size and collapses greater than 50% with inspiration. Pericardium/Pleural There is no evidence of pericardial effusion. Prior Study Comparison No significant change compared to prior study dated: 12/09/2020. Measurements 2D Linear Measurements IVSd: 1.25 0.6-0.9/0.6-1.0 cm LVIDd: 4.47 3.9-5.3/4.2-5.9 cm LVIDd Index: 2.19 2.4-3.2/2.2-3.1 cm/m2 LVIDs: 2.81 2.0-3.6 cm LVPWd: 1.27 0.7-1.1 cm LA Diam: 4.10 2.7-3.8/3.0-4.0 cm LAIDs Index: 2.01 1.5-2.3 cm/m2 LV Mass: 262.31 67-162/88-224 g LV Mass Index: 128.58 43-95/49-115 g/m2 LVOT Diam: 2.10 3.0+(-)1.3 cm 2D Systolic Function EF 4C: 64.20 >55% EF 2C: 52.60 >55% EF BiP: 59.50 >55% Mitral Valve MV Pk E: 0.66 MV PK A: 0.89 MV Decel Time: 319.00 E/A: 0.70 E'Lateral: 8.70 E'Medial: 4.68 E/E' Med: 14.20 E/E' Lat: 7.60 PHT: 93.00 MVA PHT: 2.[address] [place]: 2.08 Aortic Valve AoV Pk [place]: 1.63 AoV Mn Fermin: 1.06 AoV VTI: 0.36 AoV Pk Grad: 11.00 Aov Mn Grad: 6.00 CEDRIC Cont.VTI: 2.36 LVOT LVOT Pk Fermin: 1.32 LVOT Mn Fermin: 0.89 LVOT VTI: 0.25 LVOT Pk Grad: 7.00 LVOT Mn Grad: 4.00 LVOT Diam: 2.10 LVOT Area: 3.46 Diastolic Function MV Pk E: 0.66 MV Pk A: 0.89 E/A: 0.70 E'Medial: 4.68 E/E' Med: 14.20 E' Laterial: 8.70 E/E' Lat: 7.60 Right Ventricle TAPSE (mm): 1.07 TVS' Fermin: 5.98 Tricuspid Valve TR Pk Fermin: 2.61 TR Pk Grad: 27.00 RA Press: 3.00 RVSP: 30.00 Great Vessels Aorta Sinus of Valsalva: 3.34 2.0-3.[address] [place]: 2.58 1.7-3.4 cm Ao Asc: 3.20 2.1-3.4 cm Updated in Other Vendor System with Status of Final Nghia Chapa MD electronically signed on 01/15/2022 4:11:26 PM with status of Final
== END ==
LOC: HO.CARD 07:52
PROVIDERS: Visit Provider Internal Medicine
DX: R06.02 Shortness of breath (principal)
CPT/HCPCS: 93306

== ENCOUNTER → 2022-02-20 13:45 | Outpatient (BNVA) | payer OTHER, SELFPAY | PROVIDERS: PCP Nurse Practitioner Primary Care; Referring Provider Nurse Practitioner Primary Care; Visit Provider Nurse Practitioner Family | DX: R06.02 Shortness of breath (principal); I25.10 Atherosclerotic heart disease of native coronary artery without angina pectoris; I10 Essential (primary) hypertension; M54.12 Radiculopathy, cervical region; Z95.1 Presence of aortocoronary bypass graft; Z79.899 Other long term (current) drug therapy | CPT/HCPCS: 99212 ==

== ENCOUNTER 2022-03-21 07:24 | Outpatient (REF) | payer OTHER, SELFPAY ==
--- NOTE | ~2022-03-21 | FL_ITS ---
EXAMINATION: XR FL WITH IMAGES CLINICAL INFORMATION: Cervical radiculopathy. COMPARISON: None. TECHNIQUE: Fluoroscopy performed by Dr. Dimitrios Fonseca. Fluoroscopy Time: 0.3 minutes. Cumulative Dose: 3.65 mGy. DAP: 0.350 Gy-cm2. Images: 2. FINDINGS: Images demonstrate needle at the C7-T1 disc space level with some contrast with the appearance of an epidural injection. FL/FL guidance in treatment room IMPRESSION: Fluoroscopy for pain management procedure.
== END 2022-03-21 07:25 | disposition home or self-care (01) ==
LOC: HO.RADIR 07:24
PROVIDERS: Visit Provider Internal Medicine
DX: M54.12 Radiculopathy, cervical region (principal)
CPT/HCPCS: 62321; J1100; Q9965

== ENCOUNTER → 2022-04-19 10:15 | Outpatient (BNVA) | payer OTHER, SELFPAY | PROVIDERS: PCP Nurse Practitioner Primary Care; Visit Provider Nurse Practitioner Family | DX: M43.02 Spondylolysis, cervical region (principal); M79.18 Myalgia, other site; M54.12 Radiculopathy, cervical region; M48.8X2 Other specified spondylopathies, cervical region; R68.84 Jaw pain; G89.29 Other chronic pain; Z87.828 Personal history of other (healed) physical injury and trauma | CPT/HCPCS: 99212 ==

== ENCOUNTER 2022-05-30 05:41 | Outpatient (REF) | payer OTHER, SELFPAY ==
--- NOTE | ~2022-05-30 | FL_ITS ---
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 TECHNIQUE: Fluoroscopy performed by Dr. Dimitrios Fonseca. Fluoroscopy time: 0.4 minutes. Cumulative Dose: 18.7 mGy. DAP: 1.54 Gy-cm2. Images: 2. FINDINGS: There are spinal needles overlying the left lateral masses cervical spine approximately C3, C4, and C5. There is contrast in the paraspinal soft tissues and nerve sheaths. No visible vascular communication. FL/FL guidance in treatment room IMPRESSION: Fluoroscopy for pain management procedure.
== END 2022-05-30 05:42 | disposition home or self-care (01) ==
LOC: HO.RADIR 05:41
PROVIDERS: Visit Provider Internal Medicine
DX: M43.02 Spondylolysis, cervical region (principal)
CPT/HCPCS: 64490; 64491

== ENCOUNTER → 2022-06-27 13:27 | Outpatient (BNVA) | payer OTHER, SELFPAY | PROVIDERS: PCP Nurse Practitioner Primary Care; Referring Provider Nurse Practitioner Primary Care; Visit Provider Internal Medicine | DX: I25.10 Atherosclerotic heart disease of native coronary artery without angina pectoris (principal); I47.20 Ventricular tachycardia, unspecified; I10 Essential (primary) hypertension; E11.8 Type 2 diabetes mellitus with unspecified complications; Z95.1 Presence of aortocoronary bypass graft | CPT/HCPCS: 99212 ==

== ENCOUNTER 2022-10-03 11:54 | Emergency (ER) | payer OTHER, SELFPAY ==
--- NOTE | ~2022-10-03 | CT_ITS ---
EXAMINATION: CT MAXILLOFACIAL WITH CONTRAST CLINICAL INFORMATION: Left upper facial swelling. COMPARISON: CTA head and neck from 10/18/2021. TECHNIQUE: Multidetector helical imaging was performed in the axial plane without and following the administration of 85 mL of Omnipaque 350 intravenous contrast. Generation of coronal and sagittal reformatted images. This CT examination was performed using dose optimization techniques as appropriate, variously including the following: *Automated exposure control *Adjustment of mA and/or kV according to patient size (this includes techniques or standardized protocols for targeted exams where dose is matched to indication/reason for exam; i.e. extremities or head) *Use of iterative reconstruction technique DLP: 464 mGy-cm FINDINGS: FRONTAL SINUSES AND DRAINAGE PATHWAYS: Mild mucosal thickening of the frontal sinuses. The frontoethmoidal recesses are partially opacified. MAXILLARY SINUSES AND DRAINAGE PATHWAYS: Moderate mucosal thickening of a chronic atelectatic left maxillary sinus. Mild mucosal thickening of the right maxillary sinus. The maxillary ostia and infundibula are patent. ETHMOID SINUSES: Mild mucosal thickening of the ethmoid air cells. The ethmoid roofs appear symmetric and intact. SPHENOID SINUS AND DRAINAGE PATHWAYS: The sphenoid sinus is clear. The sphenoethmoidal recesses are patent. The carotid canals are normally covered by bone. NASAL PASSAGE: Mild to moderate mucosal thickening of the nasal passages. Mild rightward nasal septal deviation with spurring. No demonstrated nasal bone fracture. TEMPOROMANDIBULAR JOINTS: The temporomandibular joints remain well aligned. Normal appearance of the temporomandibular joints. ADDITIONAL RELEVANT FINDINGS: Moderate phlegmonous soft tissue edema along the nasal bridge extending into the left premaxillary soft tissues, upper lip, left-sided buccal soft tissues, and soft tissues along the left body of the mandible. No demonstrated discrete drainable fluid collection. No demonstrated acute osseous abnormalities. Chronic deformity of the left zygomatic arch, lateral wall of the left orbit, and left lamina preparation. Multiple metallic fragments throughout the soft tissues along the left temporal fossa. 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 Normal appearance of the right-sided globe. No demonstrated overt retrobulbar soft tissue edema or collection. Multifocal periapical lucencies associated with the maxillary right central incisor and mandibular bilateral central incisors. No overt cortical erosions of the maxillary or mandibular alveolar processes. No demonstrated discrete odontogenic abscess formation. The retromaxillary, pterygopalatine fossa, temporal fossa, and parapharyngeal adipose tissue is maintained. No demonstrated soft tissue abnormalities within the intrinsic tissues of the tongue. CT/CT facial bones w IV con IMPRESSION: Moderate phlegmonous soft tissue edema along the along the left side of face. No demonstrated discrete drainable fluid collection or radiopaque foreign bodies. Multifocal odontogenic disease. No demonstrated discrete odontogenic abscess formation. 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
[2022-10-03 12:03] VITALS: BP 179/89; PULSE 70; RESP 16; TEMP 36.4; O2SAT 98; BMI 25.1
--- NOTE | 2022-10-03 12:03 | ED.DENTAL ---
HPI - Dental/Oral General Chief complaint: Dental/Oral <IRIS Gan - Last Filed: 10/03/22 12:10> Stated complaint: Needs IV antibiotics sent by [facility] <IRIS Gan - Last Filed: 10/03/22 12:10> Time Seen by Provider: 10/03/22 12:35 <IRIS Gan - Last Filed: 10/03/22 12:10> Source: patient and japanese interpreter <IRIS Stephen - Last Filed: 10/03/22 18:30> Mode of arrival: ambulatory <IRIS Stephen Last Filed: 10/03/22 18:30> Limitations: language barrier <IRIS Stephen Last Filed: 10/03/22 18:30> History of Present Illness HPI Narrative: Patient is a 67 year old assigned male at with a history of DM, CAD, and HTN presenting to the emergency department today for dental pain. Patient states that he was seen at the [facility] dental clinic and they recommended he get IV antibiotics prior to the extraction of his #10 and #11 teeth. Patient states that he was given amoxicillin 2 days ago orally and he has more to continue taking. Patient denies any dizziness, lightheadedness, abdominal pain, nausea, vomiting, fever, chills, blurry vision, double vision, loss of vision, chest pain, difficulty breathing, shortness of breath, back pain, night sweats, pain with urination, increased urinary frequency, increased urinary urgency, blood in his urine or stool, syncope or a near syncopal episode, recent trauma or falls, bowel incontinence, bladder incontinence, bowel retention, bladder retention, or any other complaints at this time. <IRIS Stephen - Last Filed: 10/03/22 18:30> Location: Tooth # (10 and 11) <IRIS Stephen - Last Filed: 10/03/22 18:30> Onset (ago): day(s) <IRIS Stephen - Last Filed: 10/03/22 18:30> Duration: constant <IRIS Stephen Last Filed: 10/03/22 18:30> Severity: mild <IRIS Stephen Last Filed: 03/08/23 18:30> Severity scale (1-10): 3 <IRIS Stephen - Last Filed: 10/03/22 18:30> Relieving factors: nothing <IRIS Stephen - Last Filed: 10/03/22 18:30> Exacerbating factors: nothing <IRIS Stephen - Last Filed: 10/03/22 18:30> Context: history of dental caries and poor dental care <IRIS Stephen - Last Filed: 10/03/22 18:30> Associated symptoms: gum swelling <IRIS Stephen - Last Filed: 10/03/22 18:30> Treatment prior to arrival: other (amoxicllin) <IRIS Stephen - Last Filed: 10/03/22 18:30> Related Data Home medications: Home Medications Medication Instructions Recorded Confirmed folic acid 1 mg tablet 1 mg PO DAILY 06/13/20 06/27/22 Previous Rx's Medication Instructions Recorded loratadine 10 mg tablet (Claritin) 10 mg PO DAILY PRN nasal 10/03/20 congestion #10 tabs atenolol 100 mg tablet 100 mg PO DAILY #90 tabs 12/20/20 meloxicam 15 mg tablet 15 mg PO DAILY #30 tabs 03/02/21 lancets 33 gauge (TRUEplus Lancets) #100 ea 04/04/21 nitroglycerin 0.4 mg sublingual 0.4 mg sublingual Q5M PRN chest 05/24/21 tablet pain 30 days #30 tabs levothyroxine 125 mcg tablet 125 mcg PO QAM for disorder of 05/29/21 thyroid gland #90 tabs gabapentin 300 mg capsule 300 mg PO TID #90 caps 08/20/21 atorvastatin 80 mg tablet 80 mg PO BEDTIME for cholesterol 09/20/21 30 days #30 tabs metformin 500 mg tablet 500 mg PO BID #60 tabs 09/20/21 pantoprazole 40 mg tablet,delayed 40 mg PO QAM for heartburn #90 tabs 10/19/21 release cholecalciferol (vitamin D3) 50 50 mcg PO QAM #30 caps 10/23/21 mcg (2,000 unit) capsule spironolactone 25 mg tablet 25 mg PO DAILY #90 tabs 11/28/21 hydralazine 100 mg tablet 100 mg PO TID 90 days #270 tabs 12/06/21 lisinopril 40 mg tablet 40 mg PO QAM #90 tabs 01/22/22 blood sugar diagnostic (FreeStyle #100 ea 02/08/22 Lite Strips) isosorbide mononitrate 120 mg 120 mg PO DAILY #90 tabs 02/26/22 tablet,extended release 24 hr ranolazine 500 mg tablet,extended 500 mg PO BID #180 tabs 02/26/22 release,12 hr alcohol swabs (Alcohol Prep Pads) 1 pad topical .twice a day 90 days 02/28/22 #100 ea lidocaine 5 % topical ointment 1 appl topical BID PRN pain #50 04/19/22 grams tizanidine 4 mg tablet 4 mg PO Q8H PRN muscle spasticity 04/19/22 30 days #90 tabs tamsulosin 0.4 mg capsule 0.4 mg PO DAILY #30 caps 05/25/22 sitagliptin phosphate 100 mg 100 mg PO DAILY 90 days #90 tabs 06/10/22 tablet (Januvia) aspirin 81 mg tablet,delayed 81 mg PO QAM #90 tabs 06/11/22 release naproxen 500 mg tablet 500 mg PO BID 7 days #14 tabs 10/03/22 <IRIS Gan - Last Filed: 10/03/22 12:10> Allergies/adverse reactions: Allergies Allergy/AdvReac Type Severity Reaction Status Date / Time amlodipine AdvReac Unknown leg edema Verified 10/03/22 12:09 <IRIS Gan - Last Filed: 10/03/22 12:10> Review of Systems Constitutional: Constitutional: Reports no additional constitutional complaints, Denies chills, Denies fever(s) and Denies night sweats <IRIS Stephen Last Filed: 10/03/22 18:30> Eyes: Eyes: Reports no additional eye complaints and Denies eye pain <IRIS Stephen Last Filed: 10/03/22 18:30> Comments: 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 <IRIS Stephen Last Filed: 10/03/22 18:30> ENT: Denies dizziness <IRIS Stephen Last Filed: 10/03/22 18:30> Comments: dental pain <IRIS Stephen Last Filed: 10/03/22 18:30> Cardiovascular: Cardiovascular: Reports no additional cardiovascular complaints, Denies chest pain, Denies lightheadedness, Denies Loss of Consciousness and Denies dyspnea <IRIS Stephen - Last Filed: 10/03/22 18:30> Respiratory: Respiratory: Reports no additional respiratory complaints and Denies dyspnea <IRIS Stephen - Last Filed: 10/03/22 18:30> Gastrointestinal: Gastrointestinal: Reports no additional gastrointestinal complaints, Denies abdominal pain, Denies melena, Denies hematochezia, Denies change in bowel habits and Denies change in stool character <IRIS Stephen - Last Filed: 10/03/22 18:30> Genitourinary: Genitourinary: Reports no additional male genitourinary complaints, Denies hematuria, Denies oliguria, Denies difficulty urinating, Denies dysuria, Denies urinary frequency, Denies urinary hesitancy, Denies urinary incontinence and Denies urinary urgency <IRIS Stephen Last Filed: 10/03/22 18:30> Musculoskeletal: Musculoskeletal: Reports no additional musculoskeletal complaints, Denies numbness and Denies tingling <IRIS Stephen - Last Filed: 10/03/22 18:30> Comments: 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 <IRIS Stephen - Last Filed: 10/03/22 18:30> Neurologic: Denies dizziness, Denies numbness and Denies tingling <IRIS Stephen Last Filed: 10/03/22 18:30> Psychiatric: Psychiatric: Reports no additional psychiatric complaints <IRIS Stephen - Last Filed: 10/03/22 18:30> Endocrine: Endocrine: Reports no additional endocrine complaints <IRIS Stephen Last Filed: 10/03/22 18:30> Hematologic/Lymphatic: Hematologic/Lymphatic: Reports no additional hematologic/lymphatic complaints <IRIS Stephen Last Filed: 10/03/22 18:30> Allergic/Immunologic: Allergic/Immunologic: Reports no additional allergic/immunologic complaints <IRIS Stephen Last Filed: 10/03/22 18:30> PMFSH Past Medical History Attestation statement: The following information was validated with the patient. <IRIS Stephen - Last Filed: 10/03/22 18:30> Source: old records reviewed and nursing notes reviewed <IRIS Stephen - Last Filed: 10/03/22 18:30> Medical History: Medical History Acquired hypothyroidism Atherosclerotic cardiovascular disease Coronary artery arteriosclerosis Dyslipidemia Essential hypertension NSVT (nonsustained ventricular tachycardia) Type 2 diabetes mellitus with diabetic polyneuropathy <IRIS Gan - Last Filed: 10/03/22 12:10> Surgical History: Surgical History History of cardiac catheterization History of colon resection Hx of colonoscopy <IRIS Gan - Last Filed: 10/03/22 12:10> Family History Family History: Family History Father No problems noted. Mother No problems noted. <IRIS Gan - Last Filed: 10/03/22 12:10> Social History Social History: Social History Alcohol intake: never Patient Tobacco Use Status: Never used Tobacco Advance Directives: Yes Advance Directives on File: Yes Advance Directives Date on File: 10/03/20 <IRIS Gan - Last Filed: 10/03/22 12:10> Physical Exam Vital Signs: Vital Signs: Last Vital Signs Temp 98 F 10/03/22 14:58 Pulse 62 10/03/22 14:58 Resp 14 10/03/22 14:58 BP 158/89 H 10/03/22 14:58 Pulse Ox 98 10/03/22 14:58 O2 Del Method 10/03/22 12:03 BMI result Body Mass Index 25.1 <IRIS Gan - Last Filed: 10/03/22 12:10> Vital Signs: Last Vital Signs Temp 98 F 10/03/22 14:58 Pulse 62 10/03/22 14:58 Resp 14 10/03/22 14:58 BP 158/89 H 10/03/22 14:58 Pulse Ox 98 10/03/22 14:58 O2 Del Method 10/03/22 12:03 BMI result Body Mass Index 25.1 <IRIS Stephen Last Filed: 10/03/22 18:30> Const: General: cooperative, no acute distress, alert and awake <IRIS Stephen Last Filed: 10/03/22 18:30> Nutritional Appearance: well nourished <IRIS Stephen Last Filed: 10/03/22 18:30> Orientation/consciousness: patient oriented x3 <IRIS Stephen Last Filed: 10/03/22 18:30> Limitations: no limitations <IRIS Stephen Last Filed: 10/03/22 18:30> HEENT: Head: Yes normal to inspection and Yes atraumatic <IRIS Stephen Last Filed: 10/03/22 18:30> Ears: hearing grossly normal bilaterally and external ears normal <IRIS Stephen Last Filed: 10/03/22 18:30> General nose exam: Normal external nose present, no nasal discharge noted and no epistaxis <IRIS Stephen Last Filed: 10/03/22 18:30> Face and sinus: Yes normal facial exam, No abrasion and No laceration <IRIS Stephen Last Filed: 10/03/22 18:30> Mouth: Normal oral and palatal mucosa present, no drooling and no muffled voice <IRIS Stephen Last Filed: 10/03/22 18:30> Teeth image: 1. Obviously decaying teeth with minimal gum swelling and erythema <Ruth Montana MO - Last Filed: 10/03/22 12:10> Teeth image: 1. Obviously decaying teeth with minimal gum swelling and erythema <IRIS Stephen Last Filed: 10/03/22 18:30> Eyes: Other: blindness in the left eye - chronic for the patient <IRIS Stephen Last Filed: 10/03/22 18:30> Neck: Neck: Yes normal visual inspection, Yes full ROM and Yes no lymphadenopathy <IRIS Stephen - Last Filed: 10/03/22 18:30> Chest: Chest palpation & inspection: normal inspection of the chest <Ivonne GarciaIRIS - Last Filed: 10/03/22 18:30> Resp: Effort & Inspection: normal respiratory effort and able to speak in complete sentences <Ivonne GarciaIRIS - Last Filed: 10/03/22 18:30> Auscultation: clear to auscultation bilaterally <Ivonne GarciaIRIS - Last Filed: 10/03/22 18:30> Cardio: Rate: regular rate <Ivonne GarciaIRIS - Last Filed: 10/03/22 18:30> Rhythm: regular rhythm <Ivonne Garcia PA - Last Filed: 10/03/22 18:30> GI: Inspection: Yes normal to inspection <Ivonne GarciaIRIS - Last Filed: 10/03/22 18:30> Palpation (GI): Soft to palpation, not firm, nontender and no guarding <Ivonne GarciaIRIS - Last Filed: 10/03/22 18:30> Neuro: General: patient oriented x3 and moves all extremities <Ivonne GarciaIRIS - Last Filed: 10/03/22 18:30> Cognition (Neuro): normal cognition <Ivonne Garcia MO - Last Filed: 10/03/22 18:30> Motor exam (neuro): 5/5 motor strength present throughout <Ivonne Garcia PA - Last Filed: 10/03/22 18:30> Sensory Exam: Normal double simultaneous stimulation for sensation <Ivonne GarciaIRIS - Last Filed: 10/03/22 18:30> Coordination: [id number] test normal <Ivonne Landbe MO - Last Filed: 10/03/22 18:30> Extrem: Other: 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 <Ivonne LandIRIS lr - Last Filed: 10/03/22 18:30> Psych: Appearance: grossly normal <Ivonne LandIRIS lr - Last Filed: 10/03/22 18:30> Mental Status: mental status grossly normal <Ivonne LandIRIS lr - Last Filed: 10/03/22 18:30> Affect: normal affect <Ivonne LandIRIS lr - Last Filed: 10/03/22 18:30> Attitude: cooperative <Ivonnesampson LandIRIS lr - Last Filed: 10/03/22 18:30> Thought process: Normal thought process present <IRIS Stephen - Last Filed: 10/03/22 18:30> Thought content: Normal thought content present <IRIS Stephen - Last Filed: 10/03/22 18:30> Insight: Good insight present (Psych) <IRIS Stephen - Last Filed: 10/03/22 18:30> Course Course Course Narrative: RME - 67 yo Greek speaking male with history of DM, CAD, NSVT, HTN, hypothyrodism who presents to the ER for evaluation of left upper dental pain and facial swelling that started 6 days ago. He was started on amoxicillin 2 days ago. He states his dentist sent him to the ER for IV antibiotics prior to extraction of teeth #10 and 11 at the [facility]. Plan: labs and CT scan w/ contrast to evaluate for abscess. <IRIS Gan - Last Filed: 10/03/22 12:10> Medications Administered Discontinued Medications Generic Name Dose Route Start Last Admin Trade Name Freq PRN Reason Stop Dose Admin Hydromorphone HCl 2 mg 10/03/22 16:16 10/03/22 16:24 Hydromorphone Hcl 2 Mg/Ml Vial IVPUSH 10/03/22 16:17 2 mg ONCE ONE Administration Protocol Sodium Chloride 1,000 mls @ 999 mls/hr 10/03/22 13:45 10/03/22 15:28 Ns IV 10/03/22 14:45 Infused .Q1H1M MANA Infusion Iohexol 85 ml 10/03/22 13:57 10/03/22 13:58 Iohexol 350 Mg/Ml 100 Ml Infus..Btl IV 10/03/22 13:58 85 ml ONCE ONE Administration <IRIS Gan - Last Filed: 10/03/22 12:10> Medications Administered Discontinued Medications Generic Name Dose Route Start Last Admin Trade Name Freq PRN Reason Stop Dose Admin Hydromorphone HCl 2 mg 10/03/22 16:16 10/03/22 16:24 Hydromorphone Hcl 2 Mg/Ml Vial IVPUSH 10/03/22 16:17 2 mg ONCE ONE Administration Protocol Sodium Chloride 1,000 mls @ 999 mls/hr 10/03/22 13:45 10/03/22 15:28 Ns IV 10/03/22 14:45 Infused .Q1H1M MANA Infusion Iohexol 85 ml 10/03/22 13:57 10/03/22 13:58 Iohexol 350 Mg/Ml 100 Ml Infus..Btl IV 10/03/22 13:58 85 ml ONCE ONE Administration <IRIS Stephen - Last Filed: 10/03/22 18:30> Medical Decision Making Medical Decision Making [facility] Narrative: Patient is a 67 year old assigned male at with a history of HTN, DM, and CAD presenting to the emergency department today with dental pain and requesting IV antibiotics. Patient's physical exam showed minimal swelling around the obviously decaying #10 and 11 teeth. No area of fluctuance appreciated. Patient's blood work was unremarkable. Patient's CT facial bones with IV contrast showed mild soft tissue edema of the left face with no discrete fluid collection. I explained my physical exam findings as well as all test results to the patient. I answered all questions asked by the patient. Patient received IV dilaudid for pain and IV fluids which he stated helped his symptoms significantly. I stressed the importance of the patient taking his medication as prescribed, including his previously prescribed antibiotics. I stressed the importance of the patient following up with his primary care provider and a dentist. I stressed the importance of the patient returning to the emergency department immediately if his symptoms were to worsen or if he were to develop any dizziness, shortness of breath, difficulty breathing, chest pain, blurry vision, loss of vision, nausea, vomiting, abdominal pain, fever, chills, back pain, or any other complaints. Patient verbalized agreement and understanding with this treatment plan and discharge. <IRIS Stephen Last Filed: 10/03/22 18:30> Differential Diagnosis Differential Diagnoses: The differential diagnosis associated with the presentation includes <IRIS Stephen Last Filed: 10/03/22 18:30> poor dentition, gum swelling <IRIS Stephen Last Filed: 10/03/22 18:30> Lab Data [facility] Lab Attestation statement: I reviewed the patient's lab results. <IRIS Stephen Last Filed: 10/03/22 18:30> Result Diagrams: 10/03/22 12:30 03/08/23 12:30 <IRIS Gan - Last Filed: 10/03/22 12:10> Labs: Lab Results 10/03/22 10/03/22 Range/Units 12:30 12:30 WBC 4.6 L (4.8-10.8) X10*3/uL RBC 4.24 L (4.60-5.80) X10*6/uL Hgb 13.6 L (14.0-18.0) g/dl Hct 40.2 L (42.0-52.0) % MCV 94.8 (80.0-98.0) fL MCH 32.1 (27.0-33.0) pg MCHC 33.8 (31.0-36.0) g/dl RDW 12.9 (11.0-16.0) % Plt Count 157 L (160-400) X10*3/uL MPV 8.5 L (9.4-12.4) fL Immature Gran % (Auto) 0.2 (0.0-0.4) % Neut % (Auto) 63.7 (45-73) % Lymph % (Auto) 21.0 (20-40) % Meeker % (Auto) 13.4 H (2-11) % Eos % (Auto) 1.1 (0-4) % Baso % (Auto) 0.6 (0-2) % Lymph # (Auto) 1.0 L (1.2-4.9) X10*3/uL Meeker # (Auto) 0.6 (0.1-1.2) X10*3/uL Eos # (Auto) 0.1 (0.0-0.4) X10*3/uL Baso # (Auto) 0.0 (0.0-0.2) X10*3/uL Abs Immat Gran (auto) 0.01 (0.00-0.03) X10*3/uL Absolute Neuts (auto) 2.9 (2.0-8.3) x10*3/uL Absolute Nucleated RBC 0.000 (0.0-0.012) X10*3/uL Nucleated RBC % (auto) 0.0 (0.0-0.2) /100WBC Sodium 138 (135-145) mmol/L Potassium 5.1 D (3.3-5.1) mmol/L Chloride 103 (96-108) mmol/L Carbon Dioxide 28 (22-29) mmol/L Anion Gap 12 (12-20) BUN 10 (9-16) mg/dL Creatinine 1.44 H (0.5-1.4) mg/dL Estim Creat Clear Calc 53.0 Estimated GFR 49 Random Glucose 324 H (60-115) mg/dL Calcium 9.1 D (8.4-10.2) mg/dL <IRIS Gan - Last Filed: 10/03/22 12:10> Lab Results 10/03/22 10/03/22 Range/Units 12:30 12:30 WBC 4.6 L (4.8-10.8) X10*3/uL RBC 4.24 L (4.60-5.80) X10*6/uL Hgb 13.6 L (14.0-18.0) g/dl Hct 40.2 L (42.0-52.0) % MCV 94.8 (80.0-98.0) fL MCH 32.1 (27.0-33.0) pg MCHC 33.8 (31.0-36.0) g/dl RDW 12.9 (11.0-16.0) % Plt Count 157 L (160-400) X10*3/uL MPV 8.5 L (9.4-12.4) fL Immature Gran % (Auto) 0.2 (0.0-0.4) % Neut % (Auto) 63.7 (45-73) % Lymph % (Auto) 21.0 (20-40) % Meeker % (Auto) 13.4 H (2-11) % Eos % (Auto) 1.1 (0-4) % Baso % (Auto) 0.6 (0-2) % Lymph # (Auto) 1.0 L (1.2-4.9) X10*3/uL Meeker # (Auto) 0.6 (0.1-1.2) X10*3/uL Eos # (Auto) 0.1 (0.0-0.4) X10*3/uL Baso # (Auto) 0.0 (0.0-0.2) X10*3/uL Abs Immat Gran (auto) 0.01 (0.00-0.03) X10*3/uL Absolute Neuts (auto) 2.9 (2.0-8.3) x10*3/uL Absolute Nucleated RBC 0.000 (0.0-0.012) X10*3/uL Nucleated RBC % (auto) 0.0 (0.0-0.2) /100WBC Sodium 138 (135-145) mmol/L Potassium 5.1 D (3.3-5.1) mmol/L Chloride 103 (96-108) mmol/L Carbon Dioxide 28 (22-29) mmol/L Anion Gap 12 (12-20) BUN 10 (9-16) mg/dL Creatinine 1.44 H (0.5-1.4) mg/dL Estim Creat Clear Calc 53.0 Estimated GFR 49 Random Glucose 324 H (60-115) mg/dL Calcium 9.1 D (8.4-10.2) mg/dL <IRIS Stephen Filed: 10/03/22 18:30> Independent Interpretation I performed an independent interpretation of an: CT Scan <IRIS Stephen Filed: 10/03/22 18:30> Interpretation: My interpretation is in agreement with the radiologist's impression of this imaging study. EXAMINATION: CT MAXILLOFACIAL WITH CONTRAST CLINICAL INFORMATION: Left upper facial swelling. COMPARISON: CTA head and neck from 10/18/2021. TECHNIQUE: Multidetector helical imaging was performed in the axial plane without and following the administration of 85 mL of Omnipaque 350 intravenous contrast. Generation of coronal and sagittal reformatted images. This CT examination was performed using dose optimization techniques as appropriate, variously including the following: *Automated exposure control *Adjustment of mA and/or kV according to patient size (this includes techniques or standardized protocols for targeted exams where dose is matched to indication/reason for exam; i.e. extremities or head) *Use of iterative reconstruction technique DLP: 464 mGy-cm FINDINGS: FRONTAL SINUSES AND DRAINAGE PATHWAYS: Mild mucosal thickening of the frontal sinuses. The frontoethmoidal recesses are partially opacified. MAXILLARY SINUSES AND DRAINAGE PATHWAYS: Moderate mucosal thickening of a chronic atelectatic left maxillary sinus. Mild mucosal thickening of the right maxillary sinus. The maxillary ostia and infundibula are patent. ETHMOID SINUSES: Mild mucosal thickening of the ethmoid air cells. The ethmoid roofs appear symmetric and intact. SPHENOID SINUS AND DRAINAGE PATHWAYS: The sphenoid sinus is clear. The sphenoethmoidal recesses are patent. The carotid canals are normally covered by bone. NASAL PASSAGE: Mild to moderate mucosal thickening of the nasal passages. Mild rightward nasal septal deviation with spurring. No demonstrated nasal bone fracture. TEMPOROMANDIBULAR JOINTS: The temporomandibular joints remain well aligned. Normal appearance of the temporomandibular joints. ADDITIONAL RELEVANT FINDINGS: Moderate phlegmonous soft tissue edema along the nasal bridge extending into the left premaxillary soft tissues, upper lip, left-sided buccal soft tissues, and soft tissues along the left body of the mandible. No demonstrated discrete drainable fluid collection. No demonstrated acute osseous abnormalities. Chronic deformity of the left zygomatic arch, lateral wall of the left orbit, and left lamina preparation. Multiple metallic fragments throughout the soft tissues along the left temporal fossa. 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 Normal appearance of the right-sided globe. No demonstrated overt retrobulbar soft tissue edema or collection. Multifocal periapical lucencies associated with the maxillary right central incisor and mandibular bilateral central incisors. No overt cortical erosions of the maxillary or mandibular alveolar processes. No demonstrated discrete odontogenic abscess formation. The? retromaxillary, pterygopalatine fossa, temporal fossa, and parapharyngeal adipose tissue is maintained. No demonstrated soft tissue abnormalities within the intrinsic tissues of the tongue. CT/CT facial bones w IV con IMPRESSION: Moderate phlegmonous soft tissue edema along the along the left side of face. No demonstrated discrete drainable fluid collection or radiopaque foreign bodies. ? Multifocal odontogenic disease. No demonstrated discrete odontogenic abscess formation. ? 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 Dictated By: David Hyman DO Signed By: Electronically signed by David Hyman DO 10/03/22 1631 <IRIS Stephen - Last Filed: 10/03/22 18:30> Chronic Conditions Patient?s care impacted by: Diabetes (poorly managed) and Hypertension (poorly managed) <IRIS Stephen - Last Filed: 10/03/22 18:30> Critical Care Time Critical Care Time Critical Care Time: Yes <IRIS Stephen - Last Filed: 10/03/22 18:30> Total Critical Care Time: 30 <IRIS Stephen - Last Filed: 10/03/22 18:30> Attestation: I spent 30 minutes of Critical Care Time with this patient. This does not include time spent on separately reported billable procedures. <IRIS Stephen - Last Filed: 10/03/22 18:30> Discharge Plan Discharge Clinical Impression: Chronic dental infection, Chronic dental pain <IRIS Gan - Last Filed: 10/03/22 12:10> Patient Disposition: Home, Self-Care <IRIS Gan - Last Filed: 10/03/22 12:10> Additional Instructions: Follow up with your primary care provider. Return to the emergency department immediately if your symptoms worsen or if you develop any dizziness, shortness of breath, difficulty breathing, chest pain, blurry vision, loss of vision, nausea, vomiting, abdominal pain, fever, chills, back pain, or any other complaints. Govind un seguimiento con fuentes proveedor de atenci?n primaria. Regrese al departamento de emergencias de inmediato si abdulaziz s?ntomas empeoran o si presenta mareos, falta de aire, dificultad para respirar, dolor de pecho, visi?n borrosa, p?rdida de la visi?n, n?useas, v?mitos, dolor abdominal, fiebre, escalofr?os, dolor de espalda o cualquier otras quejas. Call or visit any of the clinics below to establish with a dentist: [facility] [address] [place] [address] [facility] [address] [facility], [address] [address] [place] [address] [facility] [address] [facility] [address] [place] [address] [facility] [address] [place] [address] [place] [address] [place] [address] <IRIS Gan - Last Filed: 10/03/22 12:10> Prescriptions: New naproxen 500 mg tablet 500 mg PO BID 7 Days Qty: 14 0RF No Action meloxicam 15 mg tablet 15 mg PO DAILY Qty: 30 0RF (DME) lancets [TRUEplus Lancets] 33 gauge misc See Rx Instructions .ROUTE .MEDSUPPLY Qty: 100 6RF Rx Instructions: 3 times a day levothyroxine 125 mcg tablet 125 mcg PO QAM Qty: 90 1RF Rx Instructions: NEEDS APPOINTMENT FOR MORE REFILLS gabapentin 300 mg capsule 300 mg PO TID Qty: 90 3RF atorvastatin 80 mg tablet 80 mg PO BEDTIME 30 Days Qty: 30 4RF metformin 500 mg tablet 500 mg PO BID Qty: 60 4RF pantoprazole 40 mg tablet,delayed release (DR/EC) 40 mg PO QAM Qty: 90 3RF cholecalciferol (vitamin D3) 50 mcg (2,000 unit) capsule 50 mcg PO QAM Qty: 30 0RF hydralazine 100 mg tablet 100 mg PO TID 90 Days Qty: 270 3RF lisinopril 40 mg tablet 40 mg PO QAM Qty: 90 2RF (DME) FreeStyle Lite Strips Strip See Rx Instructions .ROUTE .MEDSUPPLY Qty: 100 6RF Rx Instructions: 3times a day ranolazine 500 mg tablet extended release 12 hr 500 mg PO BID Qty: 180 3RF isosorbide mononitrate 120 mg tablet extended release 24 hr 120 mg PO DAILY Qty: 90 3RF alcohol swabs [Alcohol Prep Pads] Pads, Medicated 1 pad topical .twice a day 90 Days Qty: 100 3RF tamsulosin 0.4 mg capsule 0.4 mg PO DAILY Qty: 30 1RF Januvia 100 mg tablet 100 mg PO DAILY 90 Days Qty: 90 3RF aspirin 81 mg tablet,delayed release (DR/EC) 81 mg PO QAM Qty: 90 3RF loratadine [Claritin] 10 mg tablet 10 mg PO DAILY PRN (Reason: nasal congestion) Qty: 10 0RF folic acid 1 mg tablet 1 mg PO DAILY atenolol 100 mg tablet 100 mg PO DAILY Qty: 90 4RF nitroglycerin 0.4 mg tablet, sublingual 0.4 mg sublingual Q5M PRN (Reason: chest pain) 30 Days Qty: 30 5RF Rx Instructions: take 1 tablet under tongue as needed for Chest pain, may repeat X2 after 5 min. do not exceed 3 doses per episode spironolactone 25 mg tablet 25 mg PO DAILY Qty: 90 3RF tizanidine 4 mg tablet 4 mg PO Q8H PRN (Reason: muscle spasticity) 30 Days Qty: 90 3RF Rx Instructions: Start at bedtime as medication can be sedating. lidocaine 5 % ointment 1 appl topical BID PRN (Reason: pain) Qty: 50 1RF <IRIS Gan - Last Filed: 10/03/22 12:10> Referrals: Bobbi Ricks, GRADUATE CIVIL ENGINEER [Primary Care Provider] - <IRIS Gan - Last Filed: 10/03/22 12:10> Print Language: Greek <IRIS Gan - Last Filed: 10/03/22 12:10>
[2022-10-03 12:34] LABS: MANUAL DIFF FLAG NO
[2022-10-03 12:37] LABS: Basophils Percent Auto 0.6 % (0-2); Eosinophils Absolute Auto 0.1 X10*3/uL (0.0-0.4); Eosinophils Percent Auto 1.1 % (0-4); Hematocrit 40.2 % (42.0-52.0); Hemoglobin 13.6 g/dl (14.0-18.0); Imm Gran Abs Auto 0.01 X10*3/uL (0.00-0.03); Imm Gran Pct Auto 0.2 % (0.0-0.4); Mean Corpuscular HGB Conc 33.8 g/dl (31.0-36.0); Mean Corpuscular Hemoglobin 32.1 pg (27.0-33.0); Mean Corpuscular Volume 94.8 fL (80.0-98.0); Mean Platelet Volume 8.5 fL (9.4-12.4); Monocytes Absolute Auto 0.6 X10*3/uL (0.1-1.2); Monocytes Percent Auto 13.4 % (2-11); Neutrophils Absolute Auto 2.9 x10*3/uL (2.0-8.3); Neutrophils Percent Auto 63.7 % (45-73); Platelet Count 157 X10*3/uL (160-400); Red Blood Count 4.24 X10*6/uL (4.60-5.80); Red Cell Distribution Width 12.9 % (11.0-16.0); White Blood Count 4.6 X10*3/uL (4.8-10.8)
[2022-10-03 12:56] LABS: Anion Gap 12 (12-20); Blood Urea Nitrogen 10 mg/dL (9-16); Calcium 9.1 mg/dL (8.4-10.2); Carbon Dioxide 28 mmol/L (22-29); Chloride 103 mmol/L (96-108); Estimated Glomerular Filt Rate 49; Glucose Random 324 mg/dL (60-115); Potassium 5.1 mmol/L (3.3-5.1); Sodium 138 mmol/L (135-145)
[2022-10-03] MEDS: iohexoL 350 MG/ML 100 ML INFUS..BTL 85 ML IV (13:58)
[2022-10-03] MEDS: 0.9 % Sodium Chloride 1,000 ML 999 ML IV (13:58)
--- NOTE | 2022-10-03 14:03 | PC.NURSE ---
patient reports left sided facial swelling and pain. ED provider aware. IVF infusing per MAR. call gomes within reach
[2022-10-03 14:58] VITALS: BP 158/89; PULSE 62; RESP 14; TEMP 36.6; O2SAT 98
[2022-10-03] MEDS: HYDROmorphone HCl 2 MG/ML VIAL IVPUSH (16:24)
== END 2022-10-03 18:44 | disposition home or self-care (01) ==
PROVIDERS: Physician Assistant; Emergency Provider Emergency Medicine Emergency Medical Services; PCP Nurse Practitioner Primary Care
DX: K04.7 Periapical abscess without sinus (principal); G89.29 Other chronic pain; K08.89 Other specified disorders of teeth and supporting structures; E11.9 Type 2 diabetes mellitus without complications; I10 Essential (primary) hypertension; Z91.14 Patient's other noncompliance with medication regimen
CPT/HCPCS: 36415; 70487; 80048; 85025; 96374; 99283; 99284; J1170; Q9967

== ENCOUNTER → 2022-12-20 12:42 | Outpatient (BNVA) | payer OTHER, SELFPAY | PROVIDERS: PCP Nurse Practitioner Primary Care; Referring Provider Nurse Practitioner Primary Care; Visit Provider Internal Medicine | DX: I25.10 Atherosclerotic heart disease of native coronary artery without angina pectoris (principal); I10 Essential (primary) hypertension; I47.20 Ventricular tachycardia, unspecified; E11.8 Type 2 diabetes mellitus with unspecified complications; Z95.1 Presence of aortocoronary bypass graft | CPT/HCPCS: 93005; 99212 ==

== ENCOUNTER 2023-02-20 12:18 | Outpatient (REF) | payer OTHER, SELFPAY ==
[2023-02-20 14:08] LABS: Anion Gap 11 (12-20); Blood Urea Nitrogen 26 mg/dL (9-16); Carbon Dioxide 26 mmol/L (22-29); Chloride 110 mmol/L (96-108); Estimated Glomerular Filt Rate 42; Glucose Random 123 mg/dL (60-115); Potassium 4.7 mmol/L (3.3-5.1); Sodium 142 mmol/L (135-145)
[2023-02-20 14:32] LABS: TSH reflex Free T4 1.26 uIU/mL (0.32-4.0)
[2023-02-20 14:53] LABS: Folate > 20.0 ng/mL (> or = 4.0); Vitamin B12 685 pg/mL (200-900)
== END 2023-02-20 12:19 | disposition home or self-care (01) ==
LOC: HO.HHCL 12:18
PROVIDERS: Internal Medicine; Visit Provider Family Medicine
DX: R20.0 Anesthesia of skin (principal); R20.2 Paresthesia of skin; I10 Essential (primary) hypertension
CPT/HCPCS: 36415; 80048; 82607; 82746; 83735; 84443

== ENCOUNTER 2023-02-21 10:48 | Outpatient (AMB) | payer OTHER, SELFPAY ==
--- NOTE | 2023-02-21 11:16 | MHC.OFFVIS ---
Intake Intake Visit Reasons: PVR follow up Intake Note: Patient is present for PVR Urology Med: Tamsulosin, Antibiotic Allergy: None Blood Thinner: Aspirin Pharmacy: [facility] PVR: 0ml Allergies amlodipine Adverse Reaction (Unknown, Verified 02/21/23 11:18) leg edema HPI HPI Comments History of Present Illness Details Steve is a pleasant male. He is here for the following urologic issues. - BPH Israeli translation provided in office by qualified medical oncology physician Primary issues nocturia Urinary control during the day stable Background diabetes Takes tamsulosin May try low-dose amitriptyline at nighttime Lower urinary tract symptoms Previous TURP Has urgency and frequency Prior medications include Myrbetriq 50 mg and VESIcare 10 mg Discussed use of Botox for management At this time he would like to stick with pharmaceutical therapy PSA - repeat at next visit Diabetic with detrusor hyperactivity, impaired contractility PFSH Medical History Acquired hypothyroidism Atherosclerotic cardiovascular disease Coronary artery arteriosclerosis Dyslipidemia Essential hypertension NSVT (nonsustained ventricular tachycardia) Type 2 diabetes mellitus with diabetic polyneuropathy Surgical History History of cardiac catheterization History of colon resection Hx of colonoscopy Family History Father No problems noted. Mother No problems noted. Social History Alcohol intake: never Patient Tobacco Use Status: Never used Tobacco Advance Directives Date on File: 10/03/20 Review of Systems Const Denies chills and Denies fever(s) Card Reports no additional complaints and Denies syncope Resp Denies cough GI Denies abdominal pain and Denies heartburn Reports as per HPI and Denies change in libido Neuro Denies syncope Psych Denies change in libido Endo Denies change in libido Physical Exam Const General: cooperative, healthy appearing, comfortable and no acute distress Orientation/consciousness: patient oriented x3 HEENT Face and sinus: Yes normal facial exam Mouth: moist mucous membranes Neck Neck: Yes normal visual inspection, Yes full ROM and Yes trachea midline Chest Chest palpation & inspection: normal inspection of the chest Resp Effort & Inspection: normal respiratory effort, able to speak in complete sentences and no respiratory distress GI Inspection: Yes normal to inspection Back/Spine/Pelvis Cervical Spine: normal cervical lordosis Thoracic/Lumbar Spine: thoracic and lumbar spine normal to inspection Skin General skin exam: no rashes or lesions noted Neuro General: patient oriented x3, gait normal, tone normal and moves all extremities Extrem General: Yes normal to inspection and Yes capillary refill normal Office Procedures Post Void Residual Post Residual Void Post Void Residual (PVR): 0 [id number] Void Residual by ultrasound Assessment & Plan Assessment & Plan (1) Nocturia more than twice per night: Code(s): R35.1 - Nocturia Plan Trial amitriptyline Orders: Orders AMB Urinalysis Automated Today Z13.9 - Encounter for screening, unspecified AMB Post Void Residual by ultrasound Today N40.1 - Benign prostatic hyperplasia with lower urinary tract symptoms, R33.9 - Retention of urine, unspecified Medications: New amitriptyline 25 mg PO BEDTIME 30 tabs 1RF 30 days N30.10 - Interstitial cystitis (chronic) without hematuria, R35.1 - Nocturia Discontinued tamsulosin Discontinued Reason: Patient Completed Course 0.4 mg PO DAILY 30 caps 1RF Patient Instructions: Imaging studies, laboratory and physical exam results were discussed and reviewed in detail. No major barriers to patient understanding were identified. An opportunity to ask questions regarding the treatment plan was provided. All questions were answered. The patient expressed understanding and agreement with the above treatment plan. The patient is aware they should contact our office by phone for worsening of their current condition or the appearance of new urologic symptoms. Compliance is encouraged with any medications and followup testing that is ordered. It is a privilege to participate in the urologic care of your patient. If you have any questions or concerns regarding treatment for the above conditions, or other urologic issues, please do not hesitate to contact me. The office telephone contact is [phone]. This note is constructed using voice recognition software. While every effort has been made to ensure accuracy stretcher leveler operator helper errors may have been included. Yours sincerely, Dr Cruzito Dickerson MD, LORE [facility] - Urology Providers of Expert, Compassionate Care for the Genitourinary System Coding Level of Care Code Est Pt Level 4 (99838) Diagnoses Nocturia more than twice per night R35.1 CPT Codes Post Residual Void - PVR CPT Code: 24172-Iwwb Void Residual by ultrasound ([id number])
== END 2023-02-21 12:14 | disposition home or self-care (01) ==
PROVIDERS: Visit Provider Urology
DX: R35.1 Nocturia (principal)
CPT/HCPCS: 99213

== ENCOUNTER → 2023-02-21 10:48 | Outpatient (BNVA) | payer OTHER, SELFPAY | PROVIDERS: Visit Provider Urology | DX: R35.1 Nocturia (principal) | CPT/HCPCS: 51798; 99212 ==

== ENCOUNTER 2023-03-13 09:10 | Outpatient (REF) | payer OTHER, SELFPAY ==
[2023-03-13 11:48] LABS: Anion Gap 11 (12-20); Blood Urea Nitrogen 19 mg/dL (9-16); Calcium 8.9 mg/dL (8.4-10.2); Carbon Dioxide 24 mmol/L (22-29); Chloride 111 mmol/L (96-108); Estimated Glomerular Filt Rate 44; Glucose Random 110 mg/dL (60-115); Potassium 4.6 mmol/L (3.3-5.1); Sodium 141 mmol/L (135-145)
== END 2023-03-13 09:11 | disposition home or self-care (01) ==
LOC: HO.HHCL 09:10
PROVIDERS: Visit Provider Family Medicine
DX: R79.89 Other specified abnormal findings of blood chemistry (principal)
CPT/HCPCS: 36415; 80048

== ENCOUNTER 2023-03-18 09:41 | Outpatient (REF) | payer OTHER, SELFPAY ==
[2023-03-18 12:44] LABS: Estimated Average Glucose 114 mg/dL; Hemoglobin A1c % 5.6 % (<6.0)
== END 2023-03-18 09:42 | disposition home or self-care (01) ==
LOC: HO.HHCL 09:41
PROVIDERS: Visit Provider Nurse Practitioner Primary Care
DX: E11.69 Type 2 diabetes mellitus with other specified complication (principal); E78.5 Hyperlipidemia, unspecified
CPT/HCPCS: 36415; 83036

== ENCOUNTER 2023-04-05 11:38 | Outpatient (REF) | payer OTHER, SELFPAY ==
--- NOTE | ~2023-04-05 | XR_ITS ---
EXAMINATION: XR LUMBOSACRAL SPINE CLINICAL INFORMATION: Lumbar degenerative disc disease and worsening back pain. COMPARISON: Radiographs dated 03/05/2016. TECHNIQUE: AP and lateral views of the lumbar spine and lateral view of the lumbosacral junction. FINDINGS: Vertebral body heights are normal. At L2-L3, there is a 3 mm retrolisthesis. At L3-L4, there is mild posterior disc space narrowing. At L4-L5 and L5-S1, is marked disc space narrowing, with vacuum phenomenon. No acute fracture or spondylolisthesis is seen. There is multi-level lumbar spondylosis. There is facet arthropathy at L4-L5 and L5-S1. The paravertebral soft tissues are unremarkable. A bowel anastomosis staple line is seen within the left pelvis XR/XR lumbar spine 2-3V IMPRESSION: 1. There is multi-level lumbar degenerative disc disease, most pronounced at L4-L5 and L5-S1, where it is marked. 2. There is multi-level lumbar spondylosis. 3. There is facet arthropathy at L4-L5 and L5-S1.
== END 2023-04-05 11:39 | disposition home or self-care (01) ==
LOC: HO.HHCX 11:38
PROVIDERS: Visit Provider Nurse Practitioner Primary Care
DX: M51.36 Other intervertebral disc degeneration, lumbar region (principal)
CPT/HCPCS: 72100

== ENCOUNTER 2023-05-01 13:38 | Outpatient (REF) | payer OTHER, SELFPAY ==
--- NOTE | 2023-05-01 13:41 | EMG_ITS ---
Chief complaint: More than 2 months of left-sided pain/numbness on the hand, 5th digit locks. History of diabetes with occasional feet numbness. Denies history of neuropathy. Chronic neck pain. Occitan speaking, seen a mainframe developer. Reason for referral: Evaluate for radiculopathy versus Carpal Tunnel Syndrome Referred by: Dr. Dony Dai Procedure done: Left upper extremity NCS/EMG Precautions and/or limitations: None The limb temperature was monitored continuously and remained between 32-36 degrees C during the performance of the NCS. Nerve Conduction Studies Anti Sensory Summary Table ?Stim Site NR Onset (ms) Norm Onset (ms) Peak (ms) Norm Peak (ms) O-P Amp (?V) Norm O-P Amp Site1 Site2 Delta-0 (ms) Dist (cm) Fermin (m/s) Norm Fermin (m/s) Left Median Anti Sensory (2nd Digit) Wrist ? 2.7 3.8 <3.6 14.5 >10 Wrist 2nd Digit 2.7 14.0 52 Left Radial Anti Sensory (Thumb) Forearm ? 2.3 2.6 <3.1 10.9 Forearm Thumb 2.3 0.0 Left Ulnar Anti Sensory (5th Digit) Wrist ? 3.1 3.6 <3.7 14.2 >15.0 Wrist 5th Digit 3.1 14.0 45 Motor Summary Table ?Stim Site NR Onset (ms) Norm Onset (ms) O-P Amp (mV) Norm O-P Amp iAmp (mV) Amp (1st) (%) Site1 Site2 Delta-0 (ms) Dist (cm) Fermin (m/s) Norm Fermin (m/s) Left Median Motor (Abd Poll Brev) Wrist ? 4.5 <3.9 8.1 >4.5 10.0 100.0 Elbow Wrist 4.9 25.5 52 >45 Elbow ? 9.4 7.3 8.7 90.1 Left Ulnar Motor (Abd Dig Minimi) Wrist ? 3.3 <3.0 1.8 >5 1.9 100.0 B Elbow Wrist 4.6 22.0 48 >45 B Elbow ? 7.9 1.3 1.4 72.2 A Elbow B Elbow 1.6 10.0 63 >45 A Elbow ? 9.5 1.3 1.3 72.2 EMG ?Side Muscle Nerve Root Ins Act Fibs Psw Amp Dur Poly Recrt Int Pat Comment Left 1stDorInt Ulnar C8-T1 Nml Nml Nml Nml Nml 0 Nml Complete Left FlexCarRad Median C6-7 Nml Nml Nml Nml Nml 0 Nml Complete Left Biceps Musculocut C5-6 Nml Nml Nml Nml Nml 0 Nml Complete Left Triceps Radial C6-7-8 Nml Nml Nml Nml Nml 0 Nml Complete Left Deltoid Axillary C5-6 Nml Nml Nml Nml Nml 0 Nml Complete Paraspinal EMG ?Side Muscle Nerve Root Ins Act Fibs Psw Comment Left Cervical Upper Rami Nml Nml Nml Left Cervical Mid Rami Nml Nml Nml Left Cervical Lower Rami Nml Nml Nml FINDINGS: Left median motor nerve showed prolonged distal latency, normal amplitude and normal conduction velocity. Left median sensory nerve showed prolonged peak latency. Left ulnar median nerve showed prolonged distal latency, small amplitude and normal conduction velocity. Left ulnar sensory nerve showed small amplitude. Left radial sensory nerves tested 1 within normal. Concentric needle EMG was performed in selected muscles of the left upper extremity and cervical paraspinals. Study did not show signs of electric abnormalities as shown in the table below. IMPRESSION: 1. This is an abnormal study. 2. There is electrodiagnostic evidence for left moderate-severe median neuropathy at the wrist, consistent with Carpal Tunnel Syndrome. 3. There is electrodiagnostic evidence for chronic left ulnar neuropathy, most likely at the elbow. 4. There is no electrodiagnostic evidence for brachial plexopathy, or cervical radiculopathy. Thank you for your kind referral. Kathleen Finley MD, LORE Board Certified, [place] [employer] and Rehabilitation (ABPMR) Board Certified, [place] Board of Electrodiagnostic Medicine (ABEM) CODIN [address]42 MTDD
== END 2023-05-01 13:39 | disposition home or self-care (01) ==
LOC: HO.NEURO 13:38
PROVIDERS: PCP Nurse Practitioner Primary Care; Visit Provider Family Medicine
DX: R20.0 Anesthesia of skin (principal); R20.2 Paresthesia of skin
CPT/HCPCS: 95886; 95909

== ENCOUNTER → 2023-05-01 13:41 | Outpatient (BNV) | payer OTHER, SELFPAY | PROVIDERS: PCP Nurse Practitioner Primary Care; Visit Provider Physical Medicine & Rehabilitation | DX: G56.12 Other lesions of median nerve, left upper limb (principal); G56.02 Carpal tunnel syndrome, left upper limb; G56.22 Lesion of ulnar nerve, left upper limb | CPT/HCPCS: 95886; 95909 ==

== ENCOUNTER 2023-05-14 09:48 | Outpatient (AMB) | payer OTHER, SELFPAY ==
--- NOTE | 2023-05-14 09:48 | A.OFFVIS_ITS ---
Intake Intake Visit Reasons: 2m follow up Intake Note: Patient is present for a follow-up on Urinary Urgency Urology Med: Tamsulosin, Antibiotic Allergy: None Blood Thinner: Aspirin Pharmacy: [facility] [employer] Customer Service Required: Yes [employer] Customer Service Language: Serbian Accompanied by: Self / Same As Patient Allergies amlodipine Adverse Reaction (Unknown, Verified 05/14/23 09:50) leg edema Medication List - Last Reconciled 05/14/23 by Cruzito Dickerson MD alcohol swabs (Alcohol Prep Pads) 1 pad topical .twice a day 90 days amitriptyline 25 mg PO BEDTIME 30 days aspirin 81 mg PO QAM atenolol 100 mg PO DAILY atorvastatin 80 mg PO BEDTIME 30 days blood sugar diagnostic (FreeStyle Lite Strips) 3times a day cholecalciferol (vitamin D3) 50 mcg PO QAM folic acid 1 mg PO DAILY folic acid 1 mg PO DAILY gabapentin 300 mg PO TID hydralazine 100 mg PO TID 90 days isosorbide mononitrate ER 120 mg PO DAILY lancets (TRUEplus Lancets) 3 times a day levothyroxine 125 mcg PO QAM lidocaine 5% 1 appl topical BID PRN lisinopril 40 mg PO QAM loratadine (Claritin) 10 mg PO DAILY PRN meloxicam 15 mg PO DAILY metformin 500 mg PO BID naproxen 500 mg PO BID 7 days nitroglycerin 0.4 mg sublingual Q5M PRN 30 days pantoprazole 40 mg PO QAM ranolazine ER 500 mg PO BID sitagliptin phosphate (Januvia) 100 mg PO DAILY 90 days spironolactone 25 mg PO QAM tizanidine 4 mg PO Q8H PRN 30 days HPI HPI Comments History of Present Illness Details Steve is a pleasant male. He is here for the following urologic issues. - lower urinary tract symptoms. Serbian translation provided in office by qualified medical practice assistant Follow-up from trial of amitriptyline for nighttime waking Telemedicine Evaluation 15 min Consultation [employer] Video attempted Background diabetes Urinary storage symptoms with urgency and frequency Amitriptyline 25 mg was effective. Did cause dry mouth so he stopped the medication. Symptoms returned. Will try 10 mg amitriptyline q.h.s. Two month follow-up Lower urinary tract symptoms - storage symptoms, prior outlet procedure Previous TURP Has urgency and frequency Known diabetic with detrusor hyperactivity, impaired contractility Prior medications include Myrbetriq 50 mg and VESIcare 10 mg Discussed use of Botox for management At this time he would like to stick with pharmaceutical therapy PSA - repeat at next visit [facility] Medical History Acquired hypothyroidism Dyslipidemia NSVT (nonsustained ventricular tachycardia) Atherosclerotic cardiovascular disease Coronary artery arteriosclerosis Essential hypertension Type 2 diabetes mellitus with diabetic polyneuropathy Surgical History History of colon resection Hx of colonoscopy History of cardiac catheterization Family History Father No problems noted. Mother No problems noted. Social History Alcohol intake: never Patient Tobacco Use Status: Never used Tobacco Advance Directives Date on File: 10/03/20 Review of Systems Const All systems reviewed & are unremarkable except as noted in HPI and below Reports no additional complaints Resp Reports no additional complaints GI Reports no additional complaints Reports as per HPI Musc Reports no additional complaints Physical Exam Telemedicine evaluation Appropriate responses Regular breathing rate and rhythm HEENT Head: Yes normal to inspection Ears: hearing grossly normal bilaterally Eyes General: appearance normal, both eyes and all related structures Neck Neck: Yes normal visual inspection Chest Chest palpation & inspection: normal inspection of the chest Resp Effort & Inspection: normal respiratory effort and able to speak in complete sentences Assessment & Plan Assessment & Plan (1) Nocturia more than twice per night: Code(s): R35.1 - Nocturia (2) Urinary urgency: Code(s): R39.15 - Urgency of urination Plan Adjust to 10 mg amitriptyline 2 month follow-up Medications: Changed From amitriptyline 25 mg PO BEDTIME 30 days 30 tabs 0RF N30.10 - Interstitial cystitis (chronic) without hematuria, R35.1 - Nocturia To amitriptyline 10 mg PO BEDTIME 30 days 30 tabs 1RF N30.10 - Interstitial cystitis (chronic) without hematuria, R35.1 - Nocturia Patient Instructions: Imaging studies, laboratory and physical exam results were discussed and reviewed in detail. No major barriers to patient understanding were identified. An opportunity to ask questions regarding the treatment plan was provided. All questions were answered. The patient expressed understanding and agreement with the above treatment plan. The patient is aware they should contact our office by phone for worsening of their current condition or the appearance of new urologic symptoms. Compliance is encouraged with any medications and followup testing that is ordered. It is a privilege to participate in the urologic care of your patient. If you have any questions or concerns regarding treatment for the above conditions, or other urologic issues, please do not hesitate to contact me. The office telephone contact is [phone]. This note is constructed using voice recognition software. While every effort has been made to ensure accuracy laminating press operator errors may have been included. Yours sincerely, Dr Cruzito Dickerson MD, LORE [facility] - Urology Providers of Expert, Compassionate Care for the Genitourinary System Telehealth Telehealth Location of provider rendering services: practice address Location of patient: address on file Patient Identification confirmed using: Name, : Yes Telehealth method: video Patient verbally consented to treatment: Yes Patient verbally consented to billing insurance company: Yes Patient informed of any privacy concerns related to visit: Yes Coding Level of Care Code Tele Est Pt Level 4 (91266) Diagnoses Nocturia more than twice per night R35.1 Urinary urgency R39.15
== END 2023-05-14 11:52 | disposition home or self-care (01) ==
LOC: HO.HUSH 09:48
PROVIDERS: PCP Nurse Practitioner Primary Care; Visit Provider Urology
DX: R35.1 Nocturia (principal); R39.15 Urgency of urination
CPT/HCPCS: 99213

== ENCOUNTER → 2023-05-14 09:48 | Outpatient (BNVA) | payer OTHER, SELFPAY | PROVIDERS: PCP Nurse Practitioner Primary Care; Visit Provider Urology ==

== ENCOUNTER 2023-06-11 13:33 | Outpatient (AMB) | payer OTHER, SELFPAY ==
--- NOTE | 2023-06-11 13:45 | MHC.OFFVIS ---
Intake Vital Signs 06/11/23 13:49 Height 5 ft 11 in Weight 178 lb 9.191 oz BMI 24.9 BP 102/52 L Blood Pressure Location Lt brachial Position Sitting Pulse 56 Intake Visit Reasons: 6 month follow up Intake Note: 6 month follow up Concrete Vibrator Operator Required: Yes Concrete Vibrator Operator Language: Restaurant Team Member Name: Anuradha [id number] Accompanied by: Self / Same As Patient Allergies amlodipine Adverse Reaction (Unknown, Verified 06/11/23 13:49) leg edema Medication List - Last Reconciled 06/11/23 by Lacho García MD alcohol swabs (Alcohol Prep Pads) 1 pad topical .twice a day 90 days amitriptyline 10 mg PO BEDTIME 30 days aspirin 81 mg PO QAM atenolol 100 mg PO DAILY atorvastatin 80 mg PO BEDTIME 30 days blood sugar diagnostic (FreeStyle Lite Strips) 3times a day cholecalciferol (vitamin D3) 50 mcg PO QAM folic acid 1 mg PO DAILY folic acid 1 mg PO DAILY gabapentin 300 mg PO TID hydralazine 100 mg PO TID 90 days isosorbide mononitrate ER 120 mg PO DAILY lancets (TRUEplus Lancets) 3 times a day levothyroxine 125 mcg PO QAM lidocaine 5% 1 appl topical BID PRN lisinopril 40 mg PO QAM loratadine (Claritin) 10 mg PO DAILY PRN meloxicam 15 mg PO DAILY metformin 500 mg PO BID naproxen 500 mg PO BID 7 days nitroglycerin 0.4 mg sublingual Q5M PRN 30 days pantoprazole 40 mg PO QAM ranolazine ER 500 mg PO BID sitagliptin phosphate (Januvia) 100 mg PO DAILY 90 days spironolactone 25 mg PO QAM tizanidine 4 mg PO Q8H PRN 30 days HPI HPI Comments History of Present Illness Details Steve returns for follow-up regarding coronary disease. In the past, he had undergone right coronary artery stenting. Due to continued anginal-type symptoms, he underwent another cardiac catheterization and found to have severe LAD/diagonal stenosis. He also had known chronic total occlusion of the circumflex. Then had bypass surgery. Overall, he is feeling good. No complaints like angina or shortness of breath or in fact anything cardiac sounding. No new concerns otherwise. [facility] Medical History Acquired hypothyroidism Dyslipidemia NSVT (nonsustained ventricular tachycardia) Atherosclerotic cardiovascular disease Coronary artery arteriosclerosis Essential hypertension Type 2 diabetes mellitus with diabetic polyneuropathy Surgical History History of colon resection Hx of colonoscopy History of cardiac catheterization Family History Father No problems noted. Mother No problems noted. Social History (Updated 06/11/23 @ 13:49 by Mary Ann Huntley) Alcohol intake: current Alcohol intake frequency: holidays/special occasions only Patient Tobacco Use Status: Never used Tobacco Advance Directives Date on File: 10/03/20 Review of Systems Const All systems reviewed & are unremarkable except as noted in HPI and below Reports as per HPI and Reports no additional complaints Eyes Reports as per HPI and Denies no additional complaints ENT Denies no additional complaints and Reports as per HPI Card Reports as per HPI, Reports no additional complaints, Denies acrocyanosis, Denies chest pain, Denies leg edema, Denies lightheadedness, Denies palpitations and Denies dyspnea Resp Reports as per HPI, Denies no additional complaints and Denies dyspnea GI Reports as per HPI and Denies no additional complaints Reports no additional complaints and Reports as per HPI Musc Reports no additional complaints and Reports as per HPI Skin/Breast Reports system reviewed and no additional complaints, except as documented Neuro Reports no additional complaints and Reports as per HPI Psych Reports no additional complaints and Reports as per HPI Endo Reports no additional complaints, Reports as per HPI and Denies palpitations Estevan/Lymph Reports no additional complaints and Reports as per HPI Aller/Immun Reports no additional complaints and Reports as per HPI Physical Exam Vital Signs: Last Vital Signs Pulse 56 06/11/23 13:49 BP 102/52 L 06/11/23 13:49 BMI result Body Mass Index 24.9 Const General: comfortable and no acute distress Orientation/consciousness: patient oriented x3 HEENT Other: Unremarkable Head: Yes normal to inspection Neck Neck: Yes normal visual inspection Chest Chest palpation & inspection: normal inspection of the chest Resp Auscultation: clear to auscultation bilaterally Cardio Palpation: normal PMI Heart sounds: S1 normal heart sound present, S2 normal heart sound present, no gallops, no murmurs and no rubs GI Palpation (GI): Soft to palpation Back/Spine/Pelvis Other: unremarkable Skin General skin exam: no rashes or lesions noted Neuro General: patient oriented x3 Extrem General: Yes normal to inspection Psych Mental Status: mental status grossly normal Assessment & Plan Assessment & Plan (1) Atherosclerotic cardiovascular disease: Code(s): I25.10 - Atherosclerotic heart disease of [place] coronary artery without angina pectoris Plan: Stable. No angina. Continue aspirin and statins. All the available LDLs are in the 30s, 40s and 50s. However, nothing recent. (2) Status post coronary artery bypass graft: Code(s): Z95.1 - Presence of aortocoronary bypass graft Plan: Recovered completely. (3) NSVT (nonsustained ventricular tachycardia): Code(s): I47.2 - Ventricular tachycardia Plan: No recent issues. Continue beta-blockers. (4) Essential hypertension: Code(s): I10 - Essential (primary) hypertension Plan: Blood pressure is within normal limits today. (5) Type 2 diabetes mellitus with unspecified complications: Code(s): E11.8 - Type 2 diabetes mellitus with unspecified complications Plan: Last hemoglobin A1c is 5.6%. Controlled. On metformin, Januvia. Coding Level of Care Code Est Pt Level 4 (53765) Diagnoses Atherosclerotic cardiovascular disease I25.10 Status post coronary artery bypass graft Z95.1 NSVT (nonsustained ventricular tachycardia) I47.2 Essential hypertension I10 Type 2 diabetes mellitus with unspecified complications E11.8
[2023-06-11 13:49] VITALS: BP 102/52; PULSE 56; BMI 24.9
== END 2023-06-11 14:07 | disposition home or self-care (01) ==
PROVIDERS: Visit Provider Internal Medicine
DX: I25.10 Atherosclerotic heart disease of native coronary artery without angina pectoris (principal); Z95.1 Presence of aortocoronary bypass graft; I47.20 Ventricular tachycardia, unspecified; I10 Essential (primary) hypertension; E11.8 Type 2 diabetes mellitus with unspecified complications
CPT/HCPCS: 99214

== ENCOUNTER → 2023-06-11 13:33 | Outpatient (BNVA) | payer OTHER, SELFPAY | PROVIDERS: Visit Provider Internal Medicine | DX: I25.10 Atherosclerotic heart disease of native coronary artery without angina pectoris (principal); I47.20 Ventricular tachycardia, unspecified; I10 Essential (primary) hypertension; E11.8 Type 2 diabetes mellitus with unspecified complications; Z95.1 Presence of aortocoronary bypass graft | CPT/HCPCS: 99212 ==

== ENCOUNTER 2023-09-24 10:49 | Outpatient (REF) | payer OTHER, SELFPAY ==
[2023-09-24 12:50] LABS: Prostate Specific Antigen 0.24 ng/mL (<0.05-4.0)
== END 2023-09-24 10:50 | disposition home or self-care (01) ==
LOC: HO.HHCL 10:49
PROVIDERS: Visit Provider Emergency Medicine
DX: K64.9 Unspecified hemorrhoids (principal); Z12.5 Encounter for screening for malignant neoplasm of prostate
CPT/HCPCS: 36415; 84153

== ENCOUNTER 2023-09-27 13:24 | Emergency (ER) | payer OTHER, SELFPAY ==
[2023-09-27 13:40] VITALS: BP 112/63; BP 170/72; PULSE 76; PULSE 80; RESP 18; TEMP 36.9; O2SAT 95; O2SAT 97; BMI 21.9
--- NOTE | 2023-09-27 14:00 | ED_ITS ---
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 MD complaint: abscess/boil (left buttock) Onset (ago): day(s) Tetanus up to date: yes Severity: moderate Associated symptoms: denies other symptoms Related Data Previous Rx's Medication Instructions Recorded loratadine 10 mg tablet (Claritin) 10 mg PO DAILY PRN nasal 10/03/20 congestion #10 tabs atenolol 100 mg tablet 100 mg PO DAILY #90 tabs 12/20/20 meloxicam 15 mg tablet 15 mg PO DAILY #30 tabs 03/02/21 lancets 33 gauge (TRUEplus Lancets) #100 ea 04/04/21 nitroglycerin 0.4 mg sublingual 0.4 mg sublingual Q5M PRN chest 05/24/21 tablet pain 30 days #30 tabs levothyroxine 125 mcg tablet 125 mcg PO QAM for disorder of 05/29/21 thyroid gland #90 tabs gabapentin 300 mg capsule 300 mg PO TID #90 caps 08/20/21 atorvastatin 80 mg tablet 80 mg PO BEDTIME for cholesterol 09/20/21 30 days #30 tabs metformin 500 mg tablet 500 mg PO BID #60 tabs 09/20/21 cholecalciferol (vitamin D3) 50 50 mcg PO QAM #30 caps 10/23/21 mcg (2,000 unit) capsule blood sugar diagnostic (FreeStyle #100 ea 02/08/22 Lite Strips) lidocaine 5 % topical ointment 1 appl topical BID PRN pain #50 04/19/22 grams tizanidine 4 mg tablet 4 mg PO Q8H PRN muscle spasticity 04/19/22 30 days #90 tabs naproxen 500 mg tablet 500 mg PO BID 7 days #14 tabs 10/03/22 pantoprazole 40 mg tablet,delayed 40 mg PO QAM for heartburn #90 tabs 10/04/22 release spironolactone 25 mg tablet 25 mg PO QAM #90 tabs 11/05/22 alcohol swabs (Alcohol Prep Pads) 1 pad topical .twice a day 90 days 11/13/22 #100 ea hydralazine 100 mg tablet 100 mg PO TID 90 days #270 tabs 12/19/22 isosorbide mononitrate 120 mg 120 mg PO DAILY #90 tabs 02/08/23 tablet,extended release 24 hr ranolazine 500 mg tablet,extended 500 mg PO BID #180 tabs 02/08/23 release,12 hr folic acid 1 mg tablet 1 mg PO DAILY #90 tabs 03/27/23 folic acid 1 mg tablet 1 mg PO DAILY 03/28/23 amitriptyline 10 mg tablet 10 mg PO BEDTIME 30 days #30 tabs 05/14/23 aspirin 81 mg tablet,delayed 81 mg PO QAM #90 tabs 06/18/23 release lisinopril 40 mg tablet 40 mg PO QAM #90 tabs 06/18/23 sitagliptin phosphate 100 mg 100 mg PO DAILY 90 days #90 tabs 06/18/23 tablet (Januvia) Allergies Allergy/AdvReac Type Severity Reaction Status Date / Time amlodipine AdvReac Unknown leg edema Verified 09/27/23 14:02 Review of Systems Review of Systems: Yes all other systems are reviewed and are negative Neurologic: Denies Sensory deficit (Neuro) [facility] Past Medical History Medical History Acquired hypothyroidism Dyslipidemia NSVT (nonsustained ventricular tachycardia) Atherosclerotic cardiovascular disease Coronary artery arteriosclerosis Essential hypertension Type 2 diabetes mellitus with diabetic polyneuropathy Surgical History History of colon resection Hx of colonoscopy History of cardiac catheterization Family History Family History Father No problems noted. Mother No problems noted. Social History Social History Alcohol intake: current Alcohol intake frequency: holidays/special occasions only Patient Tobacco Use Status: Never used Tobacco Advance Directives: Yes Advance Directives on File: Yes Advance Directives Date on File: 10/03/20 Physical Exam Vital Signs: Vital Signs: Last Vital Signs Temp 98.4 F 09/27/23 13:40 Pulse 76 09/27/23 13:40 Resp 18 09/27/23 13:40 BP 112/63 09/27/23 13:40 Pulse Ox 97 09/27/23 13:40 O2 Del Method Room Air 09/27/23 13:40 BMI result Body Mass Index 21.9 Const: Other: male looking older than stated age Nutritional Appearance: average body habitus Orientation/consciousness: oriented to person and patient oriented x3 Limitations: no limitations HEENT: Head: Yes normal to inspection Ears: external ears normal General nose exam: Normal external nose present Mouth: Normal oral and palatal mucosa present and oropharynx normal Throat: Yes posterior oropharynx normal Eyes: General: appearance normal, both eyes and all related structures Neck: Other: supple Neck: Yes normal visual inspection Chest: Chest palpation & inspection: normal inspection of the chest Resp: Auscultation: clear to auscultation bilaterally Cardio: Jugular venous distension: no JVD Rate: regular rate Rhythm: regular rhythm Heart sounds: S1 normal heart sound present and S2 normal heart sound present GI: Inspection: Yes normal to inspection Palpation (GI): Soft to palpation, nontender and No hepatosplenomegaly present Auscultation: normal bowel sounds : Other: left buttock with abscess Skin: General skin exam: no rashes or lesions noted Neuro: General: oriented to person and patient oriented x3 Cranial nerves: Yes CN's II-XII intact bilaterally Motor exam (neuro): 5/5 motor strength present throughout Sensory Exam: No Sensory deficit (Neuro) 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 History obtained from or confirmed by: EMS External Record Review External record reviewed: Outpatient record Prescription Management I considered prescription management with: Antibiotic (straight forward abscess with no fever no cellulitis so abx not given) Chronic Conditions Patient?s care impacted by: Diabetes, Hypertension and Other (CAD) Procedures Procedure Narrative Procedure Narrative: Patient prepped and draped in sterile fashion. !% epi with lidocaine used for anesthesia. 11 blade used, pus removed, packing placed. Patient tolerated procedure well Discharge Plan Discharge Clinical Impression: Abscess Patient Disposition: Home, Self-Care Instructions: Abscess (ED), Abscess Incision and Drainage (DC) Additional Instructions: packing removal in 2 days Prescriptions: No Action meloxicam 15 mg tablet 15 mg PO DAILY Qty: 30 0RF (DME) lancets [TRUEplus Lancets] 33 gauge misc See Rx Instructions .ROUTE .MEDSUPPLY Qty: 100 6RF Rx Instructions: 3 times a day levothyroxine 125 mcg tablet 125 mcg PO QAM Qty: 90 1RF Rx Instructions: NEEDS APPOINTMENT FOR MORE REFILLS gabapentin 300 mg capsule 300 mg PO TID Qty: 90 3RF atorvastatin 80 mg tablet 80 mg PO BEDTIME 30 Days Qty: 30 4RF metformin 500 mg tablet 500 mg PO BID Qty: 60 4RF cholecalciferol (vitamin D3) 50 mcg (2,000 unit) capsule 50 mcg PO QAM Qty: 30 0RF (DME) FreeStyle Lite Strips Strip See Rx Instructions .ROUTE .MEDSUPPLY Qty: 100 6RF Rx Instructions: 3times a day pantoprazole 40 mg tablet,delayed release (DR/EC) 40 mg PO QAM Qty: 90 3RF spironolactone 25 mg tablet 25 mg PO QAM Qty: 90 3RF alcohol swabs [Alcohol Prep Pads] Pads, Medicated 1 pad topical .twice a day 90 Days Qty: 100 3RF hydralazine 100 mg tablet 100 mg PO TID 90 Days Qty: 270 3RF ranolazine 500 mg tablet extended release 12 hr 500 mg PO BID Qty: 180 3RF isosorbide mononitrate 120 mg tablet extended release 24 hr 120 mg PO DAILY Qty: 90 3RF folic acid 1 mg Tablet 1 mg PO DAILY Qty: 90 4RF folic acid 1 mg tablet 1 mg PO DAILY 6RF Januvia 100 mg tablet 100 mg PO DAILY 90 Days Qty: 90 3RF lisinopril 40 mg tablet 40 mg PO QAM Qty: 90 2RF aspirin 81 mg tablet,delayed release (DR/EC) 81 mg PO QAM Qty: 90 3RF loratadine [Claritin] 10 mg tablet 10 mg PO DAILY PRN (Reason: nasal congestion) Qty: 10 0RF naproxen 500 mg tablet 500 mg PO BID 7 Days Qty: 14 0RF atenolol 100 mg tablet 100 mg PO DAILY Qty: 90 4RF nitroglycerin 0.4 mg tablet, sublingual 0.4 mg sublingual Q5M PRN (Reason: chest pain) 30 Days Qty: 30 5RF Rx Instructions: take 1 tablet under tongue as needed for Chest pain, may repeat X2 after 5 min. do not exceed 3 doses per episode tizanidine 4 mg tablet 4 mg PO Q8H PRN (Reason: muscle spasticity) 30 Days Qty: 90 3RF Rx Instructions: Start at bedtime as medication can be sedating. lidocaine 5 % ointment 1 appl topical BID PRN (Reason: pain) Qty: 50 1RF amitriptyline 10 mg tablet 10 mg PO BEDTIME 30 Days Qty: 30 1RF Referrals: Clinton Dumont MD [Physician] - 5 days
[2023-09-27 16:01] VITALS: BP 121/50; PULSE 73; O2SAT 95
== END 2023-09-27 18:26 | disposition home or self-care (01) ==
PROVIDERS: Emergency Provider Emergency Medicine; PCP Nurse Practitioner Primary Care
DX: L02.31 Cutaneous abscess of buttock (principal); I10 Essential (primary) hypertension; E11.9 Type 2 diabetes mellitus without complications
CPT/HCPCS: 10060; 99283

== ENCOUNTER 2023-10-01 14:09 | Inpatient (IN) | payer OTHER, SELFPAY ==
--- NOTE | ~2023-10-01 | CT_ITS ---
EXAMINATION: CT ABDOMEN AND PELVIS WITHOUT CONTRAST CLINICAL INFORMATION: ABD pain, vomiting, acute kidney injury-R/O obstruction COMPARISON: CT abdomen pelvis 01/11/2020 TECHNIQUE: Multidetector volumetric imaging was performed from the superior aspect of the liver through the pubic symphysis. Oral contrast media was administered. Sagittal and coronal reformatted images were obtained on the technologist's workstation. This CT examination was performed using dose optimization techniques as appropriate, variously including the following: *Automated exposure control *Adjustment of mA and/or kV according to patient size (this includes techniques or standardized protocols for targeted exams where dose is matched to indication/reason for exam; i.e. extremities or head) *Use of iterative reconstruction technique DLP: 475 mGy-cm FINDINGS: LUNG BASES: Status post median sternotomy. There is mild cardiomegaly. Coronary calcium is present. No infiltrates, effusions or lung masses. LIVER, GALLBLADDER, AND BILIARY TREE: The liver is normal in size, shape, and attenuation. No focal hepatic lesion or biliary ductal dilatation is present. The gallbladder contains a single calcified gallstone but is otherwise unremarkable with no evidence of gallbladder wall thickening or obvious pericholecystic inflammatory changes. PANCREAS: Unremarkable. SPLEEN: Spleen is mildly enlarged at 12.3 cm in greatest dimension. 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 The right adrenal gland appears normal. KIDNEYS AND URETERS: The kidneys are normal in size, shape, and attenuation. No hydronephrosis, hydroureter, or calculi seen. No perinephric stranding. BLADDER: Unremarkable. GASTROINTESTINAL TRACT: A sigmoid anastomosis is present. The small and large bowel are otherwise unremarkable. The appendix is unremarkable. ABDOMINAL WALL: No significant hernia is appreciated. LYMPH NODES: No retroperitoneal lymphadenopathy. VASCULAR: Unremarkable. PELVIC VISCERA: The prostate and seminal vesicles are unremarkable. OSSEOUS STRUCTURES: Degenerative changes are present in the spine most prominent from L3 through S1. No bony destructive lesions. CT/CT abdomen pelvis wo IV con IMPRESSION: 1. A cause for the patient's abdominal pain, vomiting and acute kidney injury has not been found. 2. Incidental note made of mild cardiomegaly, cholelithiasis, mild splenomegaly, sigmoid anastomosis and degenerative changes in the spine. Fleischner guidelines were followed.
[2023-10-01 14:16] VITALS: BP 110/60; PULSE 61; O2SAT 99
[2023-10-01 14:17] VITALS: BP 100/42; PULSE 56; RESP 16; TEMP 36.5; O2SAT 98; BMI 24.8
--- NOTE | 2023-10-01 14:18 | ED.GENADULT ---
HPI - General Adult General Chief complaint: Nausea/Vomiting/Diarrhea Stated complaint: ABD PAIN,N/V/D PER EMS Time Seen by Provider: 10/01/23 16:55 Source: patient Mode of arrival: ambulatory Limitations: language barrier History of Present Illness HPI narrative: 68-year-old male with a history of hypothyroidism, dyslipidemia, nonsustained V-tach, cardiovascular disease, coronary artery disease, hypertension, diabetes type 2 who presents emergency department for evaluation of diarrhea, not able to eat or drink. The patient a was seen in the emergency department on 09/27/2023 for abdominal pain, rectal pain secondary to left buttocks abscess. The note states that the patient had diarrhea 7 days ago but none recently. The patient told me that he was having frequent diarrhea but states that he has not had any over the last 24 hours. Patient did have a left buttock/buttock cleft abscess which was incised, drained and packed in the emergency department and packed. Patient did not have any significant cellulitis and was not started on antibiotics. He states that he has had very little food intake, he states he has eaten a small piece of sandwich over the last 24 hours. He has been able to drink water. He denied fever but states he has had occasional shaking chills. He denied chest pain, shortness of breath, dyspnea on exertion or cough. He denied nausea, vomiting or diarrhea at this time. He denied frequency or dysuria. Patient reports that he was seen by his PCP and was told to go to the emergency department for IV fluid. Related Data Home Medications Medication Instructions Recorded Confirmed acetaminophen 650 mg 650 mg PO Q8H PRN mild pain 10/01/23 10/01/23 tablet,extended release docusate sodium 100 mg capsule 100 mg PO BID PRN constipation 10/01/23 10/01/23 melatonin 3 mg tablet 6 mg PO BEDTIME PRN insomnia 10/01/23 10/01/23 tamsulosin 0.4 mg capsule 0.4 mg PO QPM 10/01/23 10/01/23 Previous Rx's Medication Instructions Recorded loratadine 10 mg tablet (Claritin) 10 mg PO DAILY PRN nasal 10/03/20 congestion #10 tabs atenolol 100 mg tablet 100 mg PO DAILY #90 tabs 12/20/20 meloxicam 15 mg tablet 15 mg PO DAILY #30 tabs 03/02/21 lancets 33 gauge (TRUEplus Lancets) #100 ea 04/04/21 nitroglycerin 0.4 mg sublingual 0.4 mg sublingual Q5M PRN chest 05/24/21 tablet pain 30 days #30 tabs levothyroxine 125 mcg tablet 125 mcg PO QAM for disorder of 05/29/21 thyroid gland #90 tabs gabapentin 300 mg capsule 300 mg PO TID #90 caps 08/20/21 atorvastatin 80 mg tablet 80 mg PO BEDTIME for cholesterol 09/20/21 30 days #30 tabs metformin 500 mg tablet 500 mg PO BID #60 tabs 09/20/21 cholecalciferol (vitamin D3) 50 50 mcg PO QAM #30 caps 10/23/21 mcg (2,000 unit) capsule blood sugar diagnostic (FreeStyle #100 ea 02/08/22 Lite Strips) lidocaine 5 % topical ointment 1 appl topical BID PRN pain #50 04/19/22 grams tizanidine 4 mg tablet 4 mg PO Q8H PRN muscle spasticity 04/19/22 30 days #90 tabs naproxen 500 mg tablet 500 mg PO BID 7 days #14 tabs 10/03/22 pantoprazole 40 mg tablet,delayed 40 mg PO QAM for heartburn #90 tabs 10/04/22 release spironolactone 25 mg tablet 25 mg PO QAM #90 tabs 11/05/22 hydralazine 100 mg tablet 100 mg PO TID 90 days #270 tabs 12/19/22 isosorbide mononitrate 120 mg 120 mg PO DAILY #90 tabs 02/08/23 tablet,extended release 24 hr ranolazine 500 mg tablet,extended 500 mg PO BID #180 tabs 02/08/23 release,12 hr folic acid 1 mg tablet 1 mg PO DAILY 03/28/23 amitriptyline 10 mg tablet 10 mg PO BEDTIME 30 days #30 tabs 05/14/23 aspirin 81 mg tablet,delayed 81 mg PO QAM #90 tabs 06/18/23 release lisinopril 40 mg tablet 40 mg PO QAM #90 tabs 06/18/23 sitagliptin phosphate 100 mg 100 mg PO DAILY 90 days #90 tabs 06/18/23 tablet (Januvia) Allergies Allergy/AdvReac Type Severity Reaction Status Date / Time amlodipine AdvReac Unknown leg edema Verified 09/27/23 14:02 Review of Systems Review of Systems: Yes all other systems are reviewed and are negative [facility] Past Medical History [facility] Narrative: Social history: He states he lives by himself. He states he has a history of alcohol use disorder but stopped many years ago and does not drink alcohol at this time. Denies drug use. Medical History Acquired hypothyroidism Dyslipidemia NSVT (nonsustained ventricular tachycardia) Atherosclerotic cardiovascular disease Coronary artery arteriosclerosis Essential hypertension Type 2 diabetes mellitus with diabetic polyneuropathy Surgical History History of colon resection Hx of colonoscopy History of cardiac catheterization Family History Family History Father No problems noted. Mother No problems noted. Social History Social History Alcohol intake: current Alcohol intake frequency: holidays/special occasions only Patient Tobacco Use Status: Never used Tobacco Advance Directives: Yes Advance Directives on File: Yes Advance Directives Date on File: 10/03/20 Physical Exam ED Vital Signs: Vital Signs - 24 hr 10/01/23 14:17 Temperature 97.7 F Pulse Rate 56 Respiratory Rate 16 Blood Pressure 100/42 L Pulse Oximetry 98 Oxygen Delivery Method Room Air BMI result Body Mass Index 24.8 Vital signs low blood pressure 100/42 and low heart rate 56-most likely secondary to volume depletion. Exam: General: Awake, alert in no distress Head: Normocephalic, atraumatic EENT: PERRL, Lids normal, sclera normal, conjunctiva normal, nose normal , ears normal, throat without erythema or exudates Neck: Supple, no adenopathy Lung: breath sounds symmetric, no wheezing, rales or rhonchi Chest: symmetric movement, nontender Heart: regular rate and rhythm, normal S1, S2 no murmurs or rubs Abdomen: soft, non-tender, nondistended, normal bowel sounds Buttocks: Patient has an open incision in the left lower buttocks cleft, it is draining white purulent material, no cellulitis noted. 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 He reports he was here 3 days ago for diarrhea and a rectal abscess. Plan for labs, ekg. He was discharged without antibiotics from the recent ER visit, but was given Macrobid on 09/24/23 for a UTI. Medications Administered Generic Name Dose Route Start Last Admin Trade Name Freq PRN Reason Stop Dose Admin Sodium Chloride 1,000 mls @ 999 mls/hr 10/01/23 17:27 10/01/23 17:42 Ns IV 10/01/23 18:27 999 mls/hr .Q1H1M STA Administration Medical Decision Making Medical Decision Making [facility] Narrative: 68-year-old male with a history of hypothyroidism, dyslipidemia, nonsustained V-tach, cardiovascular disease, coronary artery disease, hypertension, diabetes type 2 who presents emergency department for evaluation of diarrhea, not able to eat or drink. The patient a was seen in the emergency department on 09/27/2023 for abdominal pain, rectal pain secondary to left buttocks abscess. Patient states he was seen by his PCP and told to come to emergency department for IV fluid. Vital signs were normal. Physical examination was unremarkable except for pus draining from the I and D's site his left butt cleft. Differential diagnosis: ?Includes but is not limited to C difficile colitis, infectious diarrhea, viral diarrhea, volume depletion, dehydration, acute kidney injury, bowel obstruction, colitis, electrolyte abnormality, anemia Following evaluation was ordered: CBC, CMP, stool panel, C diff, lipase, urinalysis, troponin, EKG Patient was initially treated with the following: IV insert, normal saline x1 L Course: 17:43 My interpretation patient's laboratory evaluation is as follows: WBC was normal 9000. Normocytic anemia with an H&H of 12.2 and 36.6-this is chronic. Chloride elevated 111, is bicarb low 15, anion gap normal at 14. BUN elevated 98 with an elevated creatinine of 4.71-this is markedly above the patient's baseline of 19 and 1.57 from 03/13/2023 suggesting the patient has acute kidney injury secondary to volume depleted from poor intake. AST and ALT are elevated 44 and 90-this is above the patient's baseline. Lipase was normal at 24. Troponin was detectable at 5.5 but not elevated. I did add a CPK to the patient's labs. Given the patient's acute kidney injury, I will discuss admission with the covering hospitalist. 18:08 I did discuss the patient's presentation with the covering hospitalist, Dr. Almaraz. After this discussion, unclear why the patient is not been able to eat therefore a CT scan of the abdomen pelvis without IV but with oral contrast was ordered to rule out obstructive process of the kidneys, colitis or bowel obstruction.. Patient will be admitted to the hospitalist service for further management of his acute kidney injury. Admission/Observation Consideration of admission/observation: Escalation of care including admission/observation considered Lab Data MDM Lab Attestation statement: I reviewed the patient's lab results. 10/01/23 14:37 10/01/23 14:37 Labs: Lab Results 10/01/23 Range/Units 14:37 WBC 9.0 (4.8-10.8) X10*3/uL RBC 3.74 L (4.60-5.80) X10*6/uL Hgb 12.2 L (14.0-18.0) g/dl Hct 36.6 L (42.0-52.0) % MCV 97.9 (80.0-98.0) fL MCH 32.6 (27.0-33.0) pg MCHC 33.3 (31.0-36.0) g/dl RDW 14.3 (11.0-16.0) % Plt Count [employer] MPV 8.6 L (9.4-12.4) fL Immature Gran % (Auto) Cancelled Neut % (Auto) Cancelled Lymph % (Auto) Cancelled [place] % (Auto) Cancelled Eos % (Auto) Cancelled Baso % (Auto) Cancelled Lymph # (Auto) Cancelled [place] # (Auto) Cancelled Eos # (Auto) Cancelled Baso # (Auto) Cancelled Abs Immat Gran (auto) Cancelled Absolute Neuts (auto) Cancelled Absolute Nucleated RBC 0.000 (0.0-0.012) X10*3/uL Nucleated RBC % (auto) 0.0 (0.0-0.2) /100WBC Neutrophils % (Manual) 63 (45-73) % Band Neutrophils % 1 L (3-5) % Lymphocytes % (Manual) 15 L (20-40) % Monocytes % (Manual) 11 (2-11) % Eosinophils % (Manual) 2 (0-4) % Metamyelocytes % 5 % Myelocytes % 3 % Abs Neuts (Manual) 5.8 (2.0-8.3) X10*3/uL Lymphocytes # (Manual) 1.4 (1.2-4.9) X10*3/uL Monocytes # (Manual) 1.0 (0.1-1.2) X10*3/uL Eosinophils # (Manual) 0.2 (0.0-0.4) X10*3/uL Metamyelocytes # 0.5 X10*3/uL Myelocytes # 0.3 X10*/uL Platelet Estimate Not Reportable Plt Morphology Comment Not Reportable RBC Morphology NORMAL Sodium 135 (135-145) mmol/L Potassium 4.8 (3.3-5.1) mmol/L Chloride 111 H (96-108) mmol/L Carbon Dioxide 15 L (22-29) mmol/L Anion Gap 14 (12-20) BUN 98 H (9-16) mg/dL Creatinine 4.71 H* (0.5-1.4) mg/dL Estim Creat Clear Calc 15.9 Estimated GFR 12 Random Glucose 96 (60-115) mg/dL Calcium 9.6 D (8.4-10.2) mg/dL Total Bilirubin 0.3 (0.0-1.0) mg/dL AST 44 H (5-37) U/L ALT 90 H (0-40) U/L Alkaline Phosphatase 67 (39-117) U/L Troponin I High Sens 5.5 (<3.5-35.0) ng/L Total Protein 8.4 H (6.5-8.0) g/dL Albumin 3.6 (3.5-5.0) g/dL Lipase 24 (8-78) U/L Independent Interpretation I performed an independent interpretation of an: EKG Interpretation: My independent interpretation the patient's 12 EKG done at 14:31 hours is as follows: Sinus bradycardia with a rate of 55, normal [place] interval, prolonged QRS duration of 110 milliseconds, normal QTC interval. No ST segment elevation, no ST segment depression, small Q-waves in lead 3 and AVF, nonspecific T-wave flattening, no PVCs, no PACs. Compared to EKG dated 10/17/2021, prolonged QRS is old, small Q-waves 3 and AVF old, nonspecific flattening of the T-waves is new. Chronic Conditions Patient?s care impacted by: Diabetes and Hypertension Discharge Plan Discharge Clinical Impression: Acute kidney injury, Fluid volume depletion, Diarrhea, Decreased oral intake Patient Disposition: Admitted As Inpatient
--- NOTE | 2023-10-01 14:21 | ECG_ITS ---
Test Reason : abd pain Blood Pressure : / mmHG Vent. Rate : 055 BPM Atrial Rate : 055 BPM P-R Int : 172 ms QRS Dur : 110 ms QT Int : 392 ms P-R-T Axes : 041 039 047 degrees QTc Int : 375 ms Sinus bradycardia Nonspecific T wave abnormality Abnormal ECG When compared with ECG of 18-OCT-2021 16:03, Nonspecific T wave abnormality now evident in Inferior leads QT has shortened Referred By: Osito Yap Electronically Signed By:Cosme High
[2023-10-01 14:42] LABS: Hematocrit 36.6 % (42.0-52.0); Hemoglobin 12.2 g/dl (14.0-18.0); Mean Corpuscular HGB Conc 33.3 g/dl (31.0-36.0); Mean Corpuscular Hemoglobin 32.6 pg (27.0-33.0); Mean Corpuscular Volume 97.9 fL (80.0-98.0); Mean Platelet Volume 8.6 fL (9.4-12.4); Red Blood Count 3.74 X10*6/uL (4.60-5.80); Red Cell Distribution Width 14.3 % (11.0-16.0)
[2023-10-01 15:02] LABS: Troponin-I High Sensitivity 5.5 ng/L (<3.5-35.0)
[2023-10-01 15:06] LABS: Anion Gap 14 (12-20)
[2023-10-01 15:20] LABS: Band Neutrophils Percent 1 % (3-5); Eosinophils Absolute Manual 0.2 X10*3/uL (0.0-0.4); Eosinophils Percent Manual 2 % (0-4); Lymphocytes Absolute Manual 1.4 X10*3/uL (1.2-4.9); Lymphocytes Percent Manual 15 % (20-40); Metamyelocytes Absolute 0.5 X10*3/uL; Metamyelocytes Percent 5 %; Monocytes Percent Manual 11 % (2-11); Myelocytes Absolute 0.3 X10*/uL; Myelocytes Percent 3 %; Neutrophils Absolute Manual 5.8 X10*3/uL (2.0-8.3); Neutrophils Percent Manual 63 % (45-73)
[2023-10-01 15:22] LABS: RBC Morphology NORMAL
[2023-10-01 15:36] LABS: Alanine Aminotransferase 90 U/L (0-40); Albumin Level 3.6 g/dL (3.5-5.0); Alkaline Phosphatase 67 U/L (39-117); Aspartate Amino Transferase 44 U/L (5-37); Bilirubin Total 0.3 mg/dL (0.0-1.0); Blood Urea Nitrogen 98 mg/dL (9-16); Calcium 9.6 mg/dL (8.4-10.2); Carbon Dioxide 15 mmol/L (22-29); Chloride 111 mmol/L (96-108); Creatinine Clr Calc Pharmacy 15.9; Estimated Glomerular Filt Rate 12; Glucose Random 96 mg/dL (60-115); Lipase 24 U/L (8-78); Potassium 4.8 mmol/L (3.3-5.1); Sodium 135 mmol/L (135-145); Total Protein 8.4 g/dL (6.5-8.0)
[2023-10-01] MEDS: 0.9 % Sodium Chloride 1,000 ML 999 ML IV (17:42)
[2023-10-01 18:21] VITALS: BP 103/59; BP 118/55; PULSE 58; PULSE 63
[2023-10-01 18:27] VITALS: BP 101/57; PULSE 68
--- NOTE | 2023-10-01 18:28 | PC.NURSE ---
20G Iv placed in in L-AC- 1L NS infusing per order. plan is for admission d/t decreased kidney fxn
[2023-10-01 18:44] VITALS: BP 106/49; PULSE 62; RESP 16; TEMP 36.4; O2SAT 95
--- NOTE | 2023-10-01 18:44 | PHA.MEDREC ---
Pharmacy Consult ? Medication Reconciliation Pharmacy has completed the medication reconciliation. Patient does not know what medications he takes since he used [facility] from [facility]. Utilized pharmacy claim history for med rec. Jasmin SmithD
--- NOTE | 2023-10-01 19:30 | PC.NURSE ---
Assumd care of pt. Pt lying on stretcher, no acut complaints at this time. Pending admission for MT at this time.
[2023-10-01 20:49] VITALS: BP 130/53; PULSE 61; RESP 12; TEMP 36.7; O2SAT 98
--- NOTE | 2023-10-01 20:56 | P.HPHOSP_ITS ---
History of Present Illness Date of Service: 10/01/23 Attending physician on admission: Harika Winter Chief Complaint: Rectal pain Steve Caceres is a 68 Niuean-speaking man with past medical history significant for type 2 diabetes mellitus on oral hypoglycemic agents, hypothyroidism, CAD and dyslipidemia presents to the emergency department complaining of pain around his rectum. He mentioned that around 9 days ago he started to develop significant pain around his rectum. Two days later he started to develop diarrhea mixed with blood. At that time he said that he went to a clinic and was prescribed with pain medications (acetaminophen ER 650 mg). On September 26 he was evaluated in the emergency department and was found to have and left buttock abscess. Incision and drainage was performed and the wound was packed. No antibiotics were prescribed. The patient denies any associated abdominal pain, nausea or vomiting. He denies fever but complains of chills and poor appetite. The diarrhea has improved and his last bowel movement was yesterday (soft stools). He has not been drinking fluids or eating well. He did not report any headache, palpitations or dizziness. He did not report any acute cardiopulmonary or genitourinary symptoms. Denied tobacco smoking, alcohol abuse or illicit drug use. In the ED today, he was found to have stable vital signs. Blood workup did not show leukocytosis. His hemoglobin is 12.2 (it was 13.6 a year ago). His creatinine is markedly elevated at 4.71 (it was 1.57 on Feb 2023). Bicarb is 15. There is no hyperkalemia. Transaminases are slightly elevated (44, 90). Bilirubin and alk phos are normal. Troponin is negative. ED tx: NS 1 L bolus. Review of Systems 2 Review of Systems: All 12 systems were reviewed and normal except as noted in HPI. [facility] Medical History Acquired hypothyroidism Dyslipidemia NSVT (nonsustained ventricular tachycardia) Atherosclerotic cardiovascular disease Coronary artery arteriosclerosis Essential hypertension Type 2 diabetes mellitus with diabetic polyneuropathy Family History Father No problems noted. Mother No problems noted. Surgical History History of colon resection Hx of colonoscopy History of cardiac catheterization Social History Alcohol intake: current Alcohol intake frequency: holidays/special occasions only Patient Tobacco Use Status: Never used Tobacco Advance Directives: Yes Advance Directives on File: Yes Advance Directives Date on File: 10/03/20 Meds Allergies Allergy/AdvReac Type Severity Reaction Status Date / Time amlodipine AdvReac Unknown leg edema Verified 09/27/23 14:02 Active Medications: Current Medications Acetaminophen (Acetaminophen Supp 650 Mg Supp.Rect) 650 mg NE Q6H PRN PRN Reason: Pain, Mild (Pain Scale 1-3) Aspirin (Aspirin Enteric Coated 81 Mg Tablet.Dr) 81 mg PO DAILY MANA Atenolol (Atenolol 100 Mg Tablet) 100 mg PO DAILY MANA; Protocol Docusate Sodium (Docusate Sodium 100 Mg Capsule) 100 mg PO BID PRN PRN Reason: constipation Folic Acid (Folic Acid 1 Mg Tablet) 1 mg PO DAILY [facility] Heparin Sodium (Porcine) (Heparin Sodium,Porcine 5,000 Unit/Ml Vial) 5,000 unit SUBCUT Q8H [facility] Sodium Chloride (Ns) 1,000 mls @ 150 mls/hr IVCONT .Q6H40M [facility] Isosorbide Mononitrate (Isosorbide Mononitrate 60 Mg Tab.Er.24h) 120 mg PO DAILY [facility]; Protocol Levothyroxine Sodium (Levothyroxine Sodium 125 Mcg Tablet) 125 mcg PO QAM [facility] Melatonin (Melatonin 3 Mg Tablet) 6 mg PO BEDTIME PRN PRN Reason: insomnia Non-Formulary Medication (Pantoprazole) 40 mg PO QAM [facility] Ranolazine (Ranolazine 500 Mg Tab.Er.12h) 500 mg PO BID [facility] Sodium Chloride (0.9 % Sodium Chloride Flush 3 Ml Syringe) 3 ml IVFLUSH QSHIFT [facility] Vitamin D (Cholecalciferol (Vitamin D3) 25 Mcg Tablet) 50 mcg PO QAM [facility] Home Medications Medication Instructions Recorded Confirmed Last Taken Type acetaminophen 650 mg 650 mg PO Q8H PRN mild pain 10/01/23 10/01/23 Unknown History tablet,extended release docusate sodium 100 mg capsule 100 mg PO BID PRN constipation 10/01/23 10/01/23 Unknown History gabapentin 300 mg capsule 300 mg PO BID@0900,1800 10/01/23 10/01/23 Unknown History gabapentin 300 mg capsule 600 mg PO BEDTIME 10/01/23 10/01/23 Unknown History melatonin 3 mg tablet 6 mg PO BEDTIME PRN insomnia 10/01/23 10/01/23 Unknown History tamsulosin 0.4 mg capsule 0.4 mg PO QPM 10/01/23 10/01/23 Unknown History Physical Exam 2 Vital Signs and Narrative: Vital Signs: Last Vital Signs Temp 98.1 F 10/01/23 20:49 Pulse 61 10/01/23 20:49 Resp 12 10/01/23 20:49 BP 130/53 L 10/01/23 20:49 Pulse Ox 98 10/01/23 20:49 O2 Del Method Room Air 10/01/23 20:49 BMI result Body Mass Index 24.8 Constitutional - Awake and Alert, No apparent distress. Pleasant. Cooperative. HEENT - Normocephalic. Atraumatic. Normal sclerae. Dry oral mucosa. Heart - S1S2, RRR, (+) murmur. Respiratory - Normal lung expansion, Normal respiratory effort, No respiratory distress, CTA bilaterally Gastrointestinal - NT / ND; +BS; No rebound or guarding Extremities - no calf tenderness bilaterally, no swelling. Right hand amputation noted. Musculoskeletal - Normal inspection, normal ROM Rectum: There is induration in the upper inner quadrant of the left bottom with spontaneous yellowish drainage. There is no associated erythema. Skin - Warm/Dry Neurological - Alert & oriented x3. No focal weakness noted grossly. Normal speech. Psychological - Appropriate affect Results Labs 10/01/23 14:37 10/01/23 14:37 Labs: Laboratory Results - last 24 hr 10/01/23 14:37 MCV 97.9 MCH 32.6 MCHC 33.3 RDW 14.3 Plt Count [employer] MPV 8.6 L Immature Gran % (Auto) Cancelled Neut % (Auto) Cancelled Lymph % (Auto) Cancelled [place] % (Auto) Cancelled Eos % (Auto) Cancelled Baso % (Auto) Cancelled Lymph # (Auto) Cancelled [place] # (Auto) Cancelled Eos # (Auto) Cancelled Baso # (Auto) Cancelled Abs Immat Gran (auto) Cancelled Absolute Neuts (auto) Cancelled Absolute Nucleated RBC 0.000 Nucleated RBC % (auto) 0.0 Neutrophils % (Manual) 63 Band Neutrophils % 1 L Lymphocytes % (Manual) 15 L Monocytes % (Manual) 11 Eosinophils % (Manual) 2 Metamyelocytes % 5 Myelocytes % 3 Abs Neuts (Manual) 5.8 Lymphocytes # (Manual) 1.4 Monocytes # (Manual) 1.0 Eosinophils # (Manual) 0.2 Metamyelocytes # 0.5 Myelocytes # 0.3 Platelet Estimate Not Reportable Plt Morphology Comment Not Reportable RBC Morphology NORMAL Anion Gap 14 Estim Creat Clear Calc 15.9 Estimated GFR 12 Random Glucose 96 Calcium 9.6 D Total Bilirubin 0.3 AST 44 H ALT 90 H Alkaline Phosphatase 67 Total Creatine Kinase 152 Troponin I High Sens 5.5 Total Protein 8.4 H Albumin 3.6 Lipase 24 Assessment and Plan (1) Acute kidney injury: Status: Acute (2) Type 2 diabetes mellitus with diabetic polyneuropathy: Qualifiers: Diabetes mellitus shelter insulin use: with shelter use Qualified Code(s): E11.42 - Type 2 diabetes mellitus with diabetic polyneuropathy; 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 intake. Admit to hospitalist service. IV hydration. Hold lisinopril and spironolactone. Check abdominal pelvis CT scan -still pending. Avoid nephrotoxic agents. Check phosphate and venous pH. Nephrology consult for further recommendations. * Left buttock abscess, spontaneously draining with associated cellulitis. Abdomen pelvis CT scan ordered to assess for deep tissue abscess/extension. Wound culture. Surgery consult. * Anemia, possibly chronic and/or associated to recent history of bloody stools. History of colonic polyps. Continue PPI. Continue to monitor H&H. * Elevated transaminases. Possible statin induced. Hold statin. Continue to monitor. * Hypothyroidism. Continue levothyroxine. * Type 2 diabetes mellitus. Metformin on hold due to MT. Continue sitagliptin. Insulin sliding scale. Blood glucose checks before meals at bedtime. Check hemoglobin A1c. * Dyslipidemia. Statin on hold due to elevated transaminases and MT. * Diarrhea, resolved. * History of V-tach. Continue atenolol. * CAD s/p CABG. Continue isosorbide, ASA, atenolol and ranolazine. * Essential hypertension. Hydralazine and spironolactone on hold due to MT and soft BP. * BPH. Tamsulosin hold due to soft BP. * Neuropathy. Gabapentin on hold due to MT. DVT prophylaxis: Heparin subQ Code status: Full Patient will need hospitalization for at least 2 midnights for MT treatment with IV antibiotics and close monitoring of blood workup and symptoms. Patient also will need evaluation by subspecialty. Quality Stroke Does the patient have a stroke diagnosis?: No VTE Prior VTE?: No VTE Risk Level:: Medical - moderate - high VTE Device Contraindication: Treatment Not Indicated VTE Drug Contraindication: N/A - Med Ordered
[2023-10-01 21:05] LABS: Appearance Urine Clear; Color Urine Yellow; Glucose Urine UA Negative (Negative); Leukocyte Esterase Urine Negative (Negative); Nitrite Urine Negative (Negative); PH 5.5 (5.0-9.0); Specific Gravity - Urine 1.015 (1.005-1.025); UMIC TRIGGER UACC YES; Urine Blood Negative (Negative); Urine Ketones Negative (Negative); Urine Protein 30 (1+) mg/dL (Neg-Trace)
[2023-10-01 21:18] LABS: Bacteria Urine None Seen (None Seen); Hyaline Casts Urine >20 /LPF (0-2); RBC Urine 0-2 /HPF (0-2); Squamous Epithelial Cell Urine 0-2 /HPF (0-2); WBC Urine 0-5 /HPF (0-5)
[2023-10-01] MEDS: Diatrizoate Meglumine, Sodium 30 ML SOLUTION PO (21:19)
[2023-10-01] MEDS: Melatonin 3 MG TABLET 6 MG PO (21:19)
[2023-10-01] MEDS: 0.9 % Sodium Chloride 1,000 ML 150 ML IVCONT (21:34)
[2023-10-02] MEDS: 0.9 % Sodium Chloride 1,000 ML 150 ML IVCONT ×3 (02:36→21:02)
[2023-10-02 02:37] VITALS: BP 119/56; PULSE 57; RESP 16; O2SAT 97
--- NOTE | 2023-10-02 02:39 | MHC.EDTECH ---
I went to check on the patient, bed clark was accessible. Patient got up and used bed clark. While I entered his room I found bedpan on the floor along with a puddle of diarrhea around it. Then inform the nurse and we call environmental services to clean the room. The patient was clean
[2023-10-02 05:16] LABS: Venous Blood Gas Refer to POC result
[2023-10-02 05:19] LABS: VBG Base Excess -11.3 mmol/L; VBG HCO3 13 mmol/L (22-26); VBG pCO2 28 mmHg; VBG pH 7.28 (7.32-7.43); VBG pO2 75 mmHg
[2023-10-02] MEDS: Levothyroxine Sodium 125 MCG TABLET PO (06:07)
[2023-10-02] MEDS: Omeprazole 20 MG CAPSULE.DR PO (06:07)
[2023-10-02 06:19] VITALS: BP 116/58; PULSE 51; RESP 18; TEMP 36.7; O2SAT 98
[2023-10-02 06:48] LABS: Hematocrit 33.1 % (42.0-52.0); Hemoglobin 11.1 g/dl (14.0-18.0); Mean Corpuscular HGB Conc 33.5 g/dl (31.0-36.0); Mean Corpuscular Hemoglobin 32.6 pg (27.0-33.0); Mean Corpuscular Volume 97.1 fL (80.0-98.0); Mean Platelet Volume 8.9 fL (9.4-12.4); Platelet Count 366 X10*3/uL (160-400); Red Blood Count 3.41 X10*6/uL (4.60-5.80); Red Cell Distribution Width 14.2 % (11.0-16.0); White Blood Count 6.9 X10*3/uL (4.8-10.8)
[2023-10-02 07:07] LABS: Alanine Aminotransferase 96 U/L (0-40); Alkaline Phosphatase 66 U/L (39-117); Anion Gap 11 (12-20); Aspartate Amino Transferase 59 U/L (5-37); Bilirubin Total 0.3 mg/dL (0.0-1.0); Blood Urea Nitrogen 76 mg/dL (9-16); Calcium 8.5 mg/dL (8.4-10.2); Carbon Dioxide 14 mmol/L (22-29); Chloride 116 mmol/L (96-108); Creatinine Clr Calc Pharmacy 28.8; Estimated Glomerular Filt Rate 25; Glucose Random 93 mg/dL (60-115); Magnesium 2.1 mg/dL (1.6-2.6); Phosphorus 3.6 mg/dL (2.7-4.5); Potassium 4.8 mmol/L (3.3-5.1); Sodium 136 mmol/L (135-145); Total Protein 7.1 g/dL (6.5-8.0)
[2023-10-02 07:11] LABS: Glucose, Whole Blood 71 mg/dL (60-115)
[2023-10-02 07:43] LABS: Estimated Average Glucose 134 mg/dL; Hemoglobin A1c % 6.3 % (<6.0)
[2023-10-02 08:56] VITALS: BMI 23.3
[2023-10-02 09:02] VITALS: BP 126/58; PULSE 50; RESP 17; TEMP 36.3; O2SAT 98
--- NOTE | 2023-10-02 09:44 | PC.NURSE ---
Admission assessment completed with covering machine operator Zeyad from covering machine operator services
[2023-10-02] MEDS: Isosorbide Mononitrate 60 MG TAB.ER.24H 120 MG PO (10:26)
[2023-10-02] MEDS: Ranolazine 500 MG TAB.ER.12H PO ×2 (10:26→20:50)
[2023-10-02] MEDS: Folic Acid 1 MG TABLET PO (10:28)
[2023-10-02] MEDS: Aspirin Enteric Coated 81 MG TABLET.DR PO (10:28)
[2023-10-02] MEDS: Heparin Sodium,Porcine 5,000 UNIT/ML VIAL 5000 UNIT SUBCUT ×2 (10:29→17:51)
--- NOTE | 2023-10-02 10:35 | P.PNIM_ITS ---
Subjective Subjective Date of Service: 10/02/23 Interval History: Seen and evaluated this morning Feels better overall diarrhea improved Cr decreased Review of Systems Review of Systems: Yes all other systems are reviewed and are negative Physical Exam 2 Vital Signs: Vital Signs: Last Vital Signs Temp 97.4 F 10/02/23 09:02 Pulse 50 10/02/23 09:02 Resp 17 10/02/23 09:02 BP 126/58 L 10/02/23 09:02 Pulse Ox 98 10/02/23 09:02 O2 Del Method Room Air 10/02/23 09:02 BMI result Body Mass Index 23.3 Const: Other: Constitutional : Awake, interactive, not in distress Neck : Normal inspection, Supple Cardiovascular : RRR, no JVP, no lower extremity edema Respiratory : good bilateral air entry, no crackles, wheezes or rhonchi Gastrointestinal: soft, lax, Normal bowel sounds, mild generalized discomfort, no surgical signs Skin : Warm, Dry, left buttock area wound cover with dressing Neurological : Alert & oriented x3, No focal deficit Objective Data Active Medications Acetaminophen (Acetaminophen Supp 650 Mg Supp.Rect) 650 mg SD Q6H PRN PRN Reason: Pain, Mild (Pain Scale 1-3) Aspirin (Aspirin Enteric Coated 81 Mg Tablet.Dr) 81 mg PO DAILY [facility] Atenolol (Atenolol 100 Mg Tablet) 100 mg PO DAILY [facility]; Protocol Dextrose (Dextrose 50 % 25 Gm/50 Ml Syringe) 25 gm IVPUSH Q15M PRN; Protocol PRN Reason: per Hypoglycemia Standing Ord. Docusate Sodium (Docusate Sodium 100 Mg Capsule) 100 mg PO BID PRN PRN Reason: constipation Folic Acid (Folic Acid 1 Mg Tablet) 1 mg PO DAILY [facility] Glucose (Glucose Gel 15 Gm Gel..Gram.) 15 gm PO Q15M PRN; Protocol PRN Reason: per Hypoglycemia Standing Ord. Heparin Sodium (Porcine) (Heparin Sodium,Porcine 5,000 Unit/Ml Vial) 5,000 unit SUBCUT Q8H [facility] Sodium Chloride (Ns) 1,000 mls @ 150 mls/hr IVCONT .Q6H40M [facility] Last Admin: 10/02/23 02:36 Dose: 150 mls/hr Documented By: NAHID Insulin Human Lispro (Insulin Lispro 100 Unit/Ml 3 Ml Vial) 0 unit SUBCUT QIDACHS [facility]; Protocol Last Admin: 10/02/23 08:47 Dose: Not Given Documented By: ALFONSO Non-Admin Reason: No Insulin Coverage Isosorbide Mononitrate (Isosorbide Mononitrate 60 Mg Tab.Er.24h) 120 mg PO DAILY [facility]; Protocol Levothyroxine Sodium (Levothyroxine Sodium 125 Mcg Tablet) 125 mcg PO DAILY@0600 [facility] Last Admin: 10/02/23 06:07 Dose: 125 mcg Documented By: NAHID Melatonin (Melatonin 3 Mg Tablet) 6 mg PO BEDTIME PRN PRN Reason: insomnia Last Admin: 10/01/23 21:19 Dose: 6 mg Documented By: NAHID Omeprazole (Omeprazole 20 Mg Capsule.Dr) 20 mg PO DAILY@0630 [facility] Last Admin: 10/02/23 06:07 Dose: 20 mg Documented By: NAHID Ranolazine (Ranolazine 500 Mg Tab.Er.12h) 500 mg PO BID [facility] Sodium Chloride (0.9 % Sodium Chloride Flush 3 Ml Syringe) 3 ml IVFLUSH QSHIFT [facility] Last Admin: 10/02/23 00:16 Dose: Not Given Documented By: NAHID Non-Admin Reason: IV Running Vitamin D (Cholecalciferol (Vitamin D3) 25 Mcg Tablet) 50 mcg PO DAILY [facility] Labs 10/02/23 05:11 10/02/23 05:11 Labs: Laboratory Results - last 24 hr 10/01/23 10/01/23 10/02/23 14:37 21:00 05:11 MCV 97.9 97.1 MCH 32.6 32.6 MCHC 33.3 33.5 RDW 14.3 14.2 Plt Count QUALITY ASSOCIATE 366 D MPV 8.6 L 8.9 L Immature Gran % (Auto) Cancelled Neut % (Auto) Cancelled Lymph % (Auto) Cancelled [place] % (Auto) Cancelled Eos % (Auto) Cancelled Baso % (Auto) Cancelled Lymph # (Auto) Cancelled [place] # (Auto) Cancelled Eos # (Auto) Cancelled Baso # (Auto) Cancelled Abs Immat Gran (auto) Cancelled Absolute Neuts (auto) Cancelled Absolute Nucleated RBC 0.000 0.000 Nucleated RBC % (auto) 0.0 0.0 Neutrophils % (Manual) 63 Band Neutrophils % 1 L Lymphocytes % (Manual) 15 L Monocytes % (Manual) 11 Eosinophils % (Manual) 2 Metamyelocytes % 5 Myelocytes % 3 Abs Neuts (Manual) 5.8 Lymphocytes # (Manual) 1.4 Monocytes # (Manual) 1.0 Eosinophils # (Manual) 0.2 Metamyelocytes # 0.5 Myelocytes # 0.3 Platelet Estimate Not Reportable Plt Morphology Comment Not Reportable RBC Morphology NORMAL VBG pH VBG pCO2 VBG pO2 VBG HCO3 VBG O2 Saturation VBG Base Excess Anion Gap 14 11 L Estim Creat Clear Calc 15.9 28.8 Estimated GFR 12 25 POC Glucose Random Glucose 96 93 Estimat Average Glucose 134 Hemoglobin A1c % 6.3 H Calcium 9.6 D 8.5 D Phosphorus 3.6 Magnesium 2.1 Total Bilirubin 0.3 0.3 AST 44 H 59 H ALT 90 H 96 H Alkaline Phosphatase 67 66 Total Creatine Kinase 152 Troponin I High Sens 5.5 Total Protein 8.4 H 7.1 Albumin 3.6 3.0 L Lipase 24 Urine Color Yellow Urine Appearance Clear Urine pH 5.5 Ur Specific [place] 1.015 Urine Protein 30 (1+) H Urine Glucose (UA) Negative Urine Ketones Negative Urine Blood Negative Urine Nitrite Negative Ur Leukocyte Esterase Negative Urine RBC 0-2 Urine WBC 0-5 Ur Squamous Epith Cells 0-2 Urine Bacteria None Seen Hyaline Casts >20 10/02/23 10/02/23 05:12 07:02 MCV MCH MCHC RDW Plt Count MPV Immature Gran % (Auto) Neut % (Auto) Lymph % (Auto) [place] % (Auto) Eos % (Auto) Baso % (Auto) Lymph # (Auto) [place] # (Auto) Eos # (Auto) Baso # (Auto) Abs Immat Gran (auto) Absolute Neuts (auto) Absolute Nucleated RBC Nucleated RBC % (auto) Neutrophils % (Manual) Band Neutrophils % Lymphocytes % (Manual) Monocytes % (Manual) Eosinophils % (Manual) Metamyelocytes % Myelocytes % Abs Neuts (Manual) Lymphocytes # (Manual) Monocytes # (Manual) Eosinophils # (Manual) Metamyelocytes # Myelocytes # Platelet Estimate Plt Morphology Comment RBC Morphology VBG pH 7.28 L VBG pCO2 28 VBG pO2 75 VBG HCO3 13 L VBG O2 Saturation 95.0 VBG Base Excess -11.3 Anion Gap Estim Creat Clear Calc Estimated GFR POC Glucose 71 Random Glucose Estimat Average Glucose Hemoglobin A1c % Calcium Phosphorus Magnesium Total Bilirubin AST ALT Alkaline Phosphatase Total Creatine Kinase Troponin I High Sens Total Protein Albumin Lipase Urine Color Urine Appearance Urine pH Ur Specific [place] Urine Protein Urine Glucose (UA) Urine Ketones Urine Blood Urine Nitrite Ur Leukocyte Esterase Urine RBC Urine WBC Ur Squamous Epith Cells Urine Bacteria Hyaline Casts Assessment and Plan (1) Decreased oral intake: Status: Acute (2) Diarrhea: Status: Acute (3) Fluid volume depletion: Status: Acute (4) Acute kidney injury: Status: Acute Plan Steve Caceres is a 68 Belgian-speaking man admitted with: # Acute kidney injury associated with metabolic acidosis likely secondary to diarrhea and poor p.o. intake. Continue IV hydration. Hold lisinopril and spironolactone. abdominal pelvis CT scan - not showing any acute findings Avoid nephrotoxic agents. follow phosphate and venous pH. Nephrology consult follow BMP # Left buttock abscess with associated cellulitis. Wound culture. Surgery consult. # Anemia, possibly chronic and/or associated to recent history of bloody stools. History of colonic polyps. Continue PPI. Continue to monitor H&H. # Elevated transaminases. Possible statin induced. Hold statin. Continue to monitor. # Hypothyroidism. Continue levothyroxine. # Type 2 diabetes mellitus. Metformin on hold due to MT. Continue sitagliptin. Insulin sliding scale. Blood glucose checks before meals at bedtime. hemoglobin A1c 6.3 # Dyslipidemia. Statin on hold due to elevated transaminases and MT. # Diarrhea, resolved. # History of V-tach. Continue atenolol. # CAD s/p CABG. Continue isosorbide, ASA, atenolol and ranolazine. # Essential hypertension. Hydralazine and spironolactone on hold due to MT and soft BP. # BPH. Tamsulosin hold due to soft BP. # Neuropathy. Gabapentin on hold due to MT. DVT prophylaxis: Heparin subQ Code status: Full Patient will need hospitalization overnight for MT treatment with IV antibiotics and close monitoring of blood workup and symptoms. Patient also will need evaluation by subspecialty. Quality Stroke Does the patient have a stroke diagnosis?: No VTE Prior VTE?: No VTE Risk Level:: Medical - moderate - high VTE Device Contraindication: Treatment Not Indicated VTE Drug Contraindication: N/A - Med Ordered
[2023-10-02] MEDS: Cholecalciferol (Vitamin D3) 25 MCG TABLET 50 MCG PO (10:47)
[2023-10-02 11:30] LABS: Glucose, Whole Blood 102 mg/dL (60-115)
[2023-10-02] MEDS: 0.9 % Sodium Chloride Flush 3 ML SYRINGE IVFLUSH (11:53)
--- NOTE | 2023-10-02 13:27 | P.CONGS_ITS ---
History of Present Illness Consult details Consult date: 10/02/23 Requesting physician: Jose Talavera Narrative: Steve Caceres is a 68 Gambian-speaking male with PMH significant for type 2 diabetes mellitus, hypothyroidism, CAD and dyslipidemia presented to the ED with complaints of pain around his rectum. This apparently started 9 days prior to presentation. He subsequently developed diarrhea with blood. He presented to the ED on 09/26 and was found to have a left buttock abscess which was I&D and the wound packed. No antibiotics were prescribed. Since the visit, he has not been drinking fluids or eating well and felt unwell and presented to the ED again. He was found to have an MT in the ED. He was admitted to the hospitalist service for acute kidney injury associated with metabolic acidosis. General surgery consult was obtained for management of left buttock abscess. Review of Systems 2 Constitutional: Constitutional: Denies chills and Denies fever(s) ENT: Denies dizziness Cardiovascular: Cardiovascular: Denies chest pain and Denies dyspnea Respiratory: Respiratory: Denies dyspnea Gastrointestinal: Gastrointestinal: Reports as per HPI, Denies abdominal pain, Denies nausea and Denies vomiting Integumentary/Breasts: Skin/Breast: Denies rash Neurologic: Denies dizziness PMFSH Past Medical History Medical History Acquired hypothyroidism Dyslipidemia NSVT (nonsustained ventricular tachycardia) Atherosclerotic cardiovascular disease Coronary artery arteriosclerosis Essential hypertension Type 2 diabetes mellitus with diabetic polyneuropathy Family History Family History Father No problems noted. Mother No problems noted. Surgical History Surgical History History of colon resection Hx of colonoscopy History of cardiac catheterization Social History Social History Household Members: None Housing: Apartment Do you presently have visiting nurse or other home services: Yes (DOCUMENT CONTROL COORDINATOR) Alcohol intake: current Alcohol intake frequency: holidays/special occasions only Patient Tobacco Use Status: Never used Tobacco Second Hand Smoke Exposure: No Advance Directives Date on File: 10/03/20 Meds Allergies Allergy/AdvReac Type Severity Reaction Status Date / Time amlodipine AdvReac Unknown leg edema Verified 09/27/23 14:02 Active Medications: Current Medications Acetaminophen (Acetaminophen Supp 650 Mg Supp.Rect) 650 mg CA Q6H PRN PRN Reason: Pain, Mild (Pain Scale 1-3) Aspirin (Aspirin Enteric Coated 81 Mg Tablet.Dr) 81 mg PO DAILY [facility] Last Admin: 10/02/23 10:28 Dose: 81 mg Atenolol (Atenolol 100 Mg Tablet) 100 mg PO DAILY [facility]; Protocol Last Admin: 10/02/23 10:28 Dose: Not Given Dextrose (Dextrose 50 % 25 Gm/50 Ml Syringe) 25 gm IVPUSH Q15M PRN; Protocol PRN Reason: per Hypoglycemia Standing Ord. Docusate Sodium (Docusate Sodium 100 Mg Capsule) 100 mg PO BID PRN PRN Reason: constipation Folic Acid (Folic Acid 1 Mg Tablet) 1 mg PO DAILY [facility] Last Admin: 10/02/23 10:28 Dose: 1 mg Glucose (Glucose Gel 15 Gm Gel..Gram.) 15 gm PO Q15M PRN; Protocol PRN Reason: per Hypoglycemia Standing Ord. Heparin Sodium (Porcine) (Heparin Sodium,Porcine 5,000 Unit/Ml Vial) 5,000 unit SUBCUT Q8H [facility] Last Admin: 10/02/23 10:29 Dose: 5,000 unit Sodium Chloride (Ns) 1,000 mls @ 150 mls/hr IVCONT .Q6H40M [facility] Last Admin: 10/02/23 11:01 Dose: 150 mls/hr Sodium Bicarbonate 150 meq/ (Dextrose) 1,000 mls @ 100 mls/hr IV .Q10H [facility] Insulin Human Lispro (Insulin Lispro 100 Unit/Ml 3 Ml Vial) 0 unit SUBCUT QIDACHS [facility]; Protocol Last Admin: 10/02/23 11:57 Dose: Not Given Isosorbide Mononitrate (Isosorbide Mononitrate 60 Mg Tab.Er.24h) 120 mg PO DAILY [facility]; Protocol Last Admin: 10/02/23 10:26 Dose: 120 mg Levothyroxine Sodium (Levothyroxine Sodium 125 Mcg Tablet) 125 mcg PO DAILY@0600 [facility] Last Admin: 10/02/23 06:07 Dose: 125 mcg Melatonin (Melatonin 3 Mg Tablet) 6 mg PO BEDTIME PRN PRN Reason: insomnia Last Admin: 10/01/23 21:19 Dose: 6 mg Omeprazole (Omeprazole 20 Mg Capsule.Dr) 20 mg PO DAILY@0630 [facility] Last Admin: 10/02/23 06:07 Dose: 20 mg Ranolazine (Ranolazine 500 Mg Tab.Er.12h) 500 mg PO BID [facility] Last Admin: 10/02/23 10:26 Dose: 500 mg Sodium Chloride (0.9 % Sodium Chloride Flush 3 Ml Syringe) 3 ml IVFLUSH QSHIFT [facility] Last Admin: 10/02/23 11:53 Dose: 3 ml Vitamin D (Cholecalciferol (Vitamin D3) 25 Mcg Tablet) 50 mcg PO DAILY [facility] Last Admin: 10/02/23 10:47 Dose: 50 mcg Home Medications Medication Instructions Recorded Confirmed Last Taken Type acetaminophen 650 mg 650 mg PO Q8H PRN mild pain 10/01/23 10/01/23 Unknown History tablet,extended release docusate sodium 100 mg capsule 100 mg PO BID PRN constipation 10/01/23 10/01/23 Unknown History gabapentin 300 mg capsule 300 mg PO BID@0900,1800 10/01/23 10/01/23 Unknown History gabapentin 300 mg capsule 600 mg PO BEDTIME 10/01/23 10/01/23 Unknown History melatonin 3 mg tablet 6 mg PO BEDTIME PRN insomnia 10/01/23 10/01/23 Unknown History tamsulosin 0.4 mg capsule 0.4 mg PO QPM 10/01/23 10/01/23 Unknown History Physical Exam 2 Vital Signs: Vital Signs: Last Vital Signs Temp 97.4 F 10/02/23 09:02 Pulse 50 10/02/23 09:02 Resp 17 10/02/23 09:02 BP 126/58 L 10/02/23 09:02 Pulse Ox 98 10/02/23 09:02 O2 Del Method Room Air 10/02/23 09:02 BMI result Body Mass Index 23.3 Const: General: comfortable, no acute distress and alert O rientation/consciousness: patient oriented x3 Resp: Effort & Inspection: normal respiratory effort Skin: Other: left buttock abscess site open and draining with purulent output, no residual fluctuance, no significant surrounding induration, edema or erythema Neuro: General: patient oriented x3 and moves all extremities Results Labs 10/02/23 05:11 10/02/23 05:11 Labs: Abnormal lab results 10/01/23 10/01/23 10/02/23 Range/Units 14:37 21:00 05:11 RBC 3.74 L 3.41 L (4.60-5.80) X10*6/uL Hgb 12.2 L 11.1 L (14.0-18.0) g/dl Hct 36.6 L 33.1 L (42.0-52.0) % MPV 8.6 L 8.9 L (9.4-12.4) fL Band Neutrophils % 1 L (3-5) % Lymphocytes % (Manual) 15 L (20-40) % VBG pH (7.32-7.43) VBG HCO3 (22-26) mmol/L Chloride 111 H 116 H (96-108) mmol/L Carbon Dioxide 15 L 14 L (22-29) mmol/L Anion Gap 11 L (12-20) BUN 98 H 76 H (9-16) mg/dL Creatinine 4.71 H* 2.61 H (0.5-1.4) mg/dL Hemoglobin A1c % 6.3 H (<6.0) % AST 44 H 59 H (5-37) U/L ALT 90 H 96 H (0-40) U/L Total Protein 8.4 H (6.5-8.0) g/dL Albumin 3.0 L (3.5-5.0) g/dL Urine Protein 30 (1+) H (Neg-Trace) mg/dL 10/02/23 Range/Units 05:12 RBC (4.60-5.80) X10*6/uL Hgb (14.0-18.0) g/dl Hct (42.0-52.0) % MPV (9.4-12.4) fL Band Neutrophils % (3-5) % Lymphocytes % (Manual) (20-40) % VBG pH 7.28 L (7.32-7.43) VBG HCO3 13 L (22-26) mmol/L Chloride (96-108) mmol/L Carbon Dioxide (22-29) mmol/L Anion Gap (12-20) BUN (9-16) mg/dL Creatinine (0.5-1.4) mg/dL Hemoglobin A1c % (<6.0) % AST (5-37) U/L ALT (0-40) U/L Total Protein (6.5-8.0) g/dL Albumin (3.5-5.0) g/dL Urine Protein (Neg-Trace) mg/dL Short CBC 10/01/23 10/02/23 Range/Units 14:37 05:11 WBC 9.0 6.9 (4.8-10.8) X10*3/uL Hgb 12.2 L 11.1 L (14.0-18.0) g/dl Hct 36.6 L 33.1 L (42.0-52.0) % Plt Count INSURANCE CASE MANAGER 366 D BMP 10/01/23 10/02/23 14:37 05:11 Sodium 135 136 Potassium 4.8 4.8 Chloride 111 H 116 H Carbon Dioxide 15 L 14 L BUN 98 H 76 H Creatinine 4.71 H* 2.61 H Calcium 9.6 D 8.5 D Cardiac Enzymes 10/01/23 Range/Units 14:37 Total Creatine Kinase 152 (38-174) U/L Liver Function 10/01/23 10/02/23 Range/Units 14:37 05:11 Total Bilirubin 0.3 0.3 (0.0-1.0) mg/dL AST 44 H 59 H (5-37) U/L ALT 90 H 96 H (0-40) U/L Alkaline Phosphatase 67 66 (39-117) U/L Albumin 3.6 3.0 L (3.5-5.0) g/dL Urine 10/01/23 Range/Units 21:00 Urine Color Yellow Urine Appearance Clear Urine pH 5.5 (5.0-9.0) Ur Specific [place] 1.015 (1.005-1.025) Urine Protein 30 (1+) H (Neg-Trace) mg/dL Urine Glucose (UA) Negative (Negative) mg/dL All other labs normal. Imaging Abdomen CT scan report/results: report reviewed and image reviewed Assessment and Plan (1) Decreased oral intake: Status: Acute (2) Left buttock abscess: Status: Acute Plan 68 year old male with PMH significant for type 2 diabetes mellitus, hypothyroidism, CAD and dyslipidemia with complaints of pain around his rectum and diarrhea found to have a left buttock abscess and subsequently developed decreased oral intake admitted for MT. The abscess was I&D in the ED during a prior visit. It remains open and draining without any residual cellulitis or further collections. No further surgical intervention needed. Can apply dry sterile dressing while it continues to drain. Procedures Date of Service Date of Service: 10/02/23
--- NOTE | 2023-10-02 15:17 | MHC.CM.PN ---
Addendum entered by Yaneth Aguilar 10/02/23 15:27: PCP DR. ALIYAH GILLIAM AT [facility] Original Note: IMM DELIVERED, PT MAORI SPEAKING AND REQUIRES MACHINE GUIDE BASE WINDER. PT LIVES ALONE BUT HAS PEDIATRIC IMMUNOLOGIST HELP T-W-TH FOR 3 HRS. PT IS INDEPENDENT WITH MOBILITY. +HCP ON FILE PT UNSURE OF PCP, ?[facility], CM WILL CALL TO VERIFY. DP: HOME WITH RESUMPTION OF PEDIATRIC IMMUNOLOGIST SERVICES. PT MAY NEED RIDE HOME. CM WILL CONTINUE TO FOLLOW FOR ANY CHANGE TO DC PLAN/NEEDS.
[2023-10-02 15:34] VITALS: BP 140/68; PULSE 54; RESP 18; TEMP 36.3; O2SAT 99
[2023-10-02] MEDS: Sodium Bicarbonate 8.4% 150 MEQ in Dextrose 5 % 850 ML 100 MEQ IV (16:06)
[2023-10-02 17:09] LABS: Glucose, Whole Blood 113 mg/dL (60-115)
[2023-10-02 20:00] VITALS: BP 132/62; PULSE 56; RESP 18; TEMP 36.8; O2SAT 98
--- NOTE | 2023-10-02 20:24 | PM.CNNEP ---
History of Present Illness Reason for Consult Consult date: 10/02/23 Chief Complaint Chief complaint: Acute Kidney injury History of Present Illness Narrative: 68 Tamaz[place]-speaking man with type 2 diabetes mellitus on oral hypoglycemic agents, hypothyroidism, CAD and dyslipidemia presented to the emergency department complaining of pain around his rectum. He mentioned that around 9 days ago he started to develop significant pain around his rectum. Two days later he started to develop diarrhea mixed with blood. At that time he said that he went to a clinic and was prescribed with pain medications (acetaminophen ER 650 mg). On September 26 he was evaluated in the emergency department and was found to have and left buttock abscess. Incision and drainage was performed and the wound was packed. No antibiotics were prescribed. He didn't have any associated abdominal pain, nausea or vomiting or fever but complains of chills and poor appetite. He has not been drinking fluids or eating well but has been taking ACEI & Spironolactone. Denied illicit drug use. His creatinine was founf to be 4.71 (it was 1.57 on Feb 2023) with bicarb of 15 but had no hyperkalemia.He was admitted for further management. Nephrology has been consulted to assist in his clinical care during his current hospital stay Review of Systems Review of Systems Yes all other systems are reviewed and are negative PMFSH Past Medical History Medical History Acquired hypothyroidism Dyslipidemia NSVT (nonsustained ventricular tachycardia) Atherosclerotic cardiovascular disease Coronary artery arteriosclerosis Essential hypertension Type 2 diabetes mellitus with diabetic polyneuropathy Family History Family History Father No problems noted. Mother No problems noted. Surgical History Surgical History History of colon resection Hx of colonoscopy History of cardiac catheterization Social History Social History Household Members: None Housing: Apartment Do you presently have visiting nurse or other home services: Yes ([employer]) Alcohol intake: current Alcohol intake frequency: holidays/special occasions only Patient Tobacco Use Status: Never used Tobacco Second Hand Smoke Exposure: No Advance Directives Date on File: 10/03/20 service: No Meds Allergies Allergy/AdvReac Type Severity Reaction Status Date / Time amlodipine AdvReac Unknown leg edema Verified 09/27/23 14:02 Active Medications: Current Medications Acetaminophen (Acetaminophen Supp 650 Mg Supp.Rect) 650 mg MO Q6H PRN PRN Reason: Pain, Mild (Pain Scale 1-3) Aspirin (Aspirin Enteric Coated 81 Mg Tablet.Dr) 81 mg PO DAILY [facility] Last Admin: 10/02/23 10:28 Dose: 81 mg Atenolol (Atenolol 100 Mg Tablet) 100 mg PO DAILY [facility]; Protocol Last Admin: 10/02/23 10:28 Dose: Not Given Dextrose (Dextrose 50 % 25 Gm/50 Ml Syringe) 25 gm IVPUSH Q15M PRN; Protocol PRN Reason: per Hypoglycemia Standing Ord. Docusate Sodium (Docusate Sodium 100 Mg Capsule) 100 mg PO BID PRN PRN Reason: constipation Folic Acid (Folic Acid 1 Mg Tablet) 1 mg PO DAILY [facility] Last Admin: 10/02/23 10:28 Dose: 1 mg Glucose (Glucose Gel 15 Gm Gel..Gram.) 15 gm PO Q15M PRN; Protocol PRN Reason: per Hypoglycemia Standing Ord. Heparin Sodium (Porcine) (Heparin Sodium,Porcine 5,000 Unit/Ml Vial) 5,000 unit SUBCUT Q8H [facility] Last Admin: 10/02/23 17:51 Dose: 5,000 unit Sodium Chloride (Ns) 1,000 mls @ 150 mls/hr IVCONT .Q6H40M [facility] Last Admin: 10/02/23 16:11 Dose: Not Given Sodium Bicarbonate 150 meq/ (Dextrose) 1,000 mls @ 100 mls/hr IV .Q10H [facility] Last Admin: 10/02/23 16:06 Dose: 100 mls/hr Insulin Human Lispro (Insulin Lispro 100 Unit/Ml 3 Ml Vial) 0 unit SUBCUT QIDACHS [facility]; Protocol Last Admin: 10/02/23 17:11 Dose: Not Given Isosorbide Mononitrate (Isosorbide Mononitrate 60 Mg Tab.Er.24h) 120 mg PO DAILY [facility]; Protocol Last Admin: 10/02/23 10:26 Dose: 120 mg Levothyroxine Sodium (Levothyroxine Sodium 125 Mcg Tablet) 125 mcg PO DAILY@0600 [facility] Last Admin: 10/02/23 06:07 Dose: 125 mcg Melatonin (Melatonin 3 Mg Tablet) 6 mg PO BEDTIME PRN PRN Reason: insomnia Last Admin: 10/01/23 21:19 Dose: 6 mg Omeprazole (Omeprazole 20 Mg Capsule.Dr) 20 mg PO DAILY@0630 [facility] Last Admin: 10/02/23 06:07 Dose: 20 mg Ranolazine (Ranolazine 500 Mg Tab.Er.12h) 500 mg PO BID [facility] Last Admin: 10/02/23 10:26 Dose: 500 mg Sodium Chloride (0.9 % Sodium Chloride Flush 3 Ml Syringe) 3 ml IVFLUSH QSHIFT [facility] Last Admin: 10/02/23 15:56 Dose: Not Given Vitamin D (Cholecalciferol (Vitamin D3) 25 Mcg Tablet) 50 mcg PO DAILY [facility] Last Admin: 10/02/23 10:47 Dose: 50 mcg Home Medications Medication Instructions Recorded Confirmed Last Taken Type acetaminophen 650 mg 650 mg PO Q8H PRN mild pain 10/01/23 10/01/23 Unknown History tablet,extended release docusate sodium 100 mg capsule 100 mg PO BID PRN constipation 10/01/23 10/01/23 Unknown History gabapentin 300 mg capsule 300 mg PO BID@0900,1800 10/01/23 10/01/23 Unknown History gabapentin 300 mg capsule 600 mg PO BEDTIME 10/01/23 10/01/23 Unknown History melatonin 3 mg tablet 6 mg PO BEDTIME PRN insomnia 10/01/23 10/01/23 Unknown History tamsulosin 0.4 mg capsule 0.4 mg PO QPM 10/01/23 10/01/23 Unknown History Physical Exam Vital Signs: Last Vital Signs Temp 97.4 F 10/02/23 15:34 Pulse 54 10/02/23 15:34 Resp 18 10/02/23 15:34 BP 140/68 H 10/02/23 15:34 Pulse Ox 99 10/02/23 15:34 O2 Del Method Room Air 10/02/23 15:34 BMI result Body Mass Index 23.3 Const General: comfortable and no acute distress Orientation/consciousness: patient oriented x3 HEENT Head: Yes normocephalic Mouth: Normal oral and palatal mucosa present Eyes EOM: EOMs intact bilaterally Neck Neck: Yes supple Resp Auscultation: clear to auscultation bilaterally Cardio Jugular venous distension: no JVD Rate: regular rate GI Palpation (GI): Soft to palpation Auscultation: normal bowel sounds General: Yes no CVA tenderness Back/Spine/Pelvis Back: no CVA tenderness Skin General skin exam: no rashes or lesions noted Neuro General: patient oriented x3 and moves all extremities Extrem General: Yes no pedal edema Results Lab Results 10/02/23 05:11 10/02/23 05:11 Lab results: Chemistry 10/01/23 10/02/23 14:37 05:11 Sodium 135 136 Potassium 4.8 4.8 Carbon Dioxide 15 L 14 L BUN 98 H 76 H Creatinine 4.71 H* 2.61 H Calcium 9.6 D 8.5 D Phosphorus 3.6 Hematology 10/01/23 10/02/23 14:37 05:11 WBC 9.0 6.9 Hgb 12.2 L 11.1 L Plt Count [employer] 366 D Urinalysis 10/01/23 21:00 Urine Color Yellow Urine Appearance Clear Urine pH 5.5 Ur Specific [place] 1.015 Urine Protein 30 (1+) H Urine Glucose (UA) Negative Urine Ketones Negative Urine Blood Negative Urine Nitrite Negative Ur Leukocyte Esterase Negative Urine RBC 0-2 Urine WBC 0-5 Ur Squamous Epith Cells 0-2 Hyaline Casts >20 Assessment and Plan (1) Acute kidney injury: Status: Acute Plan MT due to compromise in renal perfusion. Might have had altered autoregulation given he was on ACEI. Imaging reviewed. No reason to suspect obstructive uropathy/ AIN/GN. UO OK. ACEI & Spironolactone on hold. Has CKD 3 at baseline. Metabolically acidotic. Started on IV NaHCO3 after discontinuing NaCl. C/W rest of current supportive care for now. [facility]eds F[facility] with [facility] after D/C for continued care; Labs AM. Shall closely F/U Procedures Date of Service Date of Service: 10/02/23
[2023-10-02 20:49] LABS: Glucose, Whole Blood 200 mg/dL (60-115)
[2023-10-02] MEDS: Melatonin 3 MG TABLET 6 MG PO (20:50)
[2023-10-02] MEDS: Insulin Lispro 100 UNIT/ML 3 ML VIAL SUBCUT (20:50)
[2023-10-02 20:55] LABS: Glucose, Whole Blood 194 mg/dL (60-115)
[2023-10-03] MEDS: Sodium Bicarbonate 8.4% 150 MEQ in Dextrose 5 % 850 ML 100 MEQ IV ×2 (00:22→08:56)
[2023-10-03] MEDS: Heparin Sodium,Porcine 5,000 UNIT/ML VIAL 5000 UNIT SUBCUT ×2 (00:22→08:55)
[2023-10-03 02:57] VITALS: BP 177/80; PULSE 56; RESP 16; TEMP 36.3; O2SAT 97
[2023-10-03] MEDS: Omeprazole 20 MG CAPSULE.DR PO (05:37)
[2023-10-03] MEDS: Levothyroxine Sodium 125 MCG TABLET PO (05:37)
[2023-10-03 06:45] LABS: Hematocrit 30.3 % (42.0-52.0); Hemoglobin 10.6 g/dl (14.0-18.0); Mean Corpuscular Hemoglobin 32.4 pg (27.0-33.0); Mean Corpuscular Volume 92.7 fL (80.0-98.0); Platelet Count 385 X10*3/uL (160-400); Red Blood Count 3.27 X10*6/uL (4.60-5.80); Red Cell Distribution Width 13.5 % (11.0-16.0); White Blood Count 6.6 X10*3/uL (4.8-10.8)
[2023-10-03 07:15] LABS: Anion Gap 11 (12-20); Blood Urea Nitrogen 32 mg/dL (9-16); Calcium 8.6 mg/dL (8.4-10.2); Carbon Dioxide 22 mmol/L (22-29); Chloride 110 mmol/L (96-108); Creatinine Clr Calc Pharmacy 62.7; Estimated Glomerular Filt Rate > 60; Glucose Random 134 mg/dL (60-115); Potassium 4.2 mmol/L (3.3-5.1); Sodium 139 mmol/L (135-145)
[2023-10-03 07:16] VITALS: BP 179/87; PULSE 52; RESP 17; TEMP 36.7; O2SAT 99
[2023-10-03 07:39] LABS: Glucose, Whole Blood 116 mg/dL (60-115)
[2023-10-03] MEDS: Isosorbide Mononitrate 60 MG TAB.ER.24H 120 MG PO (08:54)
[2023-10-03] MEDS: Cholecalciferol (Vitamin D3) 25 MCG TABLET 50 MCG PO (08:55)
[2023-10-03] MEDS: Folic Acid 1 MG TABLET PO (08:55)
[2023-10-03] MEDS: Ranolazine 500 MG TAB.ER.12H PO (08:55)
[2023-10-03] MEDS: Aspirin Enteric Coated 81 MG TABLET.DR PO (08:55)
[2023-10-03] MEDS: atenoloL 100 MG TABLET PO (08:55)
--- NOTE | 2023-10-03 09:10 | PM.PNNEP ---
Subjective Subjective Date of Service: 10/03/23 Interval history: Events noted Physical Exam Vital Signs: Vital Signs: Last Vital Signs Temp 98.0 F 10/03/23 07:16 Pulse 52 10/03/23 07:16 Resp 17 10/03/23 07:16 BP 179/87 H 10/03/23 07:16 Pulse Ox 99 10/03/23 07:16 O2 Del Method Room Air 10/03/23 07:16 BMI result Body Mass Index 23.3 Const: General: comfortable and no acute distress Orientation/consciousness: patient oriented x3 HEENT: Head: Yes normocephalic Mouth: Normal oral and palatal mucosa present Eyes: EOM: EOMs intact bilaterally Neck: Neck: Yes supple Resp: Auscultation: clear to auscultation bilaterally Cardio: Jugular venous distension: no JVD Rate: regular rate GI: Palpation (GI): Soft to palpation Auscultation: normal bowel sounds : General: Yes no CVA tenderness Back/Spine/Pelvis: Back: no CVA tenderness Skin: General skin exam: no rashes or lesions noted Neuro: General: patient oriented x3 and moves all extremities Extrem: General: Yes no pedal edema Objective Data Labs 10/03/23 05:44 10/03/23 05:44 Labs: Laboratory Results - last 24 hr 10/02/23 10/02/23 10/02/23 11:23 17:05 20:40 WBC RBC Hgb Hct MCV MCH MCHC RDW Plt Count MPV Absolute Nucleated RBC Nucleated RBC % (auto) Sodium Potassium Chloride Carbon Dioxide Anion Gap BUN Creatinine Estim Creat Clear Calc Estimated GFR POC Glucose 102 113 194 H Random Glucose Calcium 10/02/23 10/03/23 10/03/23 20:45 05:44 07:17 WBC 6.6 RBC 3.27 L Hgb 10.6 L Hct 30.3 L MCV 92.7 MCH 32.4 MCHC 35.0 RDW 13.5 Plt Count 385 MPV 9.0 L Absolute Nucleated RBC 0.000 Nucleated RBC % (auto) 0.0 Sodium 139 Potassium 4.2 Chloride 110 H Carbon Dioxide 22 Anion Gap 11 L BUN 32 H Creatinine 1.20 Estim Creat Clear Calc 62.7 Estimated GFR > 60 POC Glucose 200 H 116 H Random Glucose 134 H Calcium 8.6 Procedures Date of Service Date of Service: 10/03/23 Assessment & Plan Assessment and plan (1) Acute kidney injury: Status: Acute Plan MT due to compromise in renal perfusion. Might have had altered autoregulation given he was on ACEI. No obstruction No reason to suspect obstructive uropathy/ AIN/GN. UO OK. ACEI & Spironolactone on hold. Has CKD 3 at baseline. Metabolically acidotic.- resolved- DC NaHCO3 l. C/W rest of current supportive care for now. Needs F[facility]U with [facility] after D/C for continued care Time Spent With Patient Time: Total time managing care of this patient today ____ minutes. Progress Note: Quality Stroke Does the patient have a stroke diagnosis?: No
--- NOTE | 2023-10-03 11:30 | P.DS_ITS ---
DS: Providers Provider Date of Service: 10/03/23 Date of admission: 10/01/23 20:44 Primary care physician: Unknown Physician Consults: 10/01/23 20:51 Consult to General Surgery Routine Consulting Provider: [facility] Reason for consultation: Left buttock absccess Has provider been notified: No Consult to Nephrology Routine Consulting Provider: [facility] Reason for consultation: Acute Kidney Injury Has provider been notified: No DS: Diagnosis Discharge Diagnosis (1) Acute kidney injury: Status: Acute (2) Left buttock abscess: Status: Acute (3) Decreased oral intake: Status: Acute (4) Diarrhea: Status: Acute (5) Fluid volume depletion: Status: Acute DS: Summary Hospital Course Hospital Course: Admission note ROSELINE Caceres is a 68 Trin[place]-speaking man with past medical history significant for type 2 diabetes mellitus on oral hypoglycemic agents, hypothyroidism, CAD and dyslipidemia presents to the emergency department complaining of pain around his rectum. He mentioned that around 9 days ago he started to develop significant pain around his rectum. Two days later he started to develop diarrhea mixed with blood. At that time he said that he went to a clinic and was prescribed with pain medications (acetaminophen ER 650 mg). On September 26 he was evaluated in the emergency department and was found to have and left buttock abscess. Incision and drainage was performed and the wound was packed. No antibiotics were prescribed. The patient denies any associated abdominal pain, nausea or vomiting. He denies fever but complains of chills and poor appetite. The diarrhea has improved and his last bowel movement was yesterday (soft stools). He has not been drinking fluids or eating well. He did not report any headache, palpitations or dizziness. He did not report any acute cardiopulmonary or genitourinary symptoms. Denied tobacco smoking, alcohol abuse or illicit drug use. In the ED today, he was found to have stable vital signs. Blood workup did not show leukocytosis. His hemoglobin is 12.2 (it was 13.6 a year ago). His creatinine is markedly elevated at 4.71 (it was 1.57 on Feb 2023). Bicarb is 15. There is no hyperkalemia. Transaminases are slightly elevated (44, 90). Bilirubin and alk phos are normal. Troponin is negative. Hospital course # Acute kidney injury associated with metabolic acidosis likely secondary to diarrhea and poor p.o. intake that was treated with IV fluids along with Holding lisinopril and spironolactone as abdominal pelvis CT scan did not showing any acute findings. Creatinine improved as the patient was evaluated by nephrology team. Creatinine improved back to baseline. Acidosis resolved. # Left buttock abscess was drained in ED. seen by surgery team as inpatient who recommended local care as no need for further intervention. To discharge on Doxycycline for 1 week and follow with PCP as outpatient. Continue antibiotics as prescribed Wound care, keep the area clean follow with PCP in 1-2 weeks Time Attestation Discharge Coordination Time (in mins): 40 Quality: Safe Use of Opioids Does Pt have an Active Cancer Diagnosis on the Problem List?: No Quality: Stroke Does the patient have a stroke diagnosis?: No Physical Exam Vital Signs: Vital Signs: Last Vital Signs Temp 98.0 F 10/03/23 07:16 Pulse 52 10/03/23 07:16 Resp 17 10/03/23 07:16 BP 179/87 H 10/03/23 07:16 Pulse Ox 99 10/03/23 07:16 O2 Del Method Room Air 10/03/23 07:16 BMI result Body Mass Index 23.3 Const: Other: Constitutional : Awake, interactive, not in distress Neck : Normal inspection, Supple Cardiovascular : RRR, no JVP, no lower extremity edema Respiratory : good bilateral air entry, no crackles, wheezes or rhonchi Gastrointestinal: soft, lax, Normal bowel sounds, no discomfort, no surgical signs Skin : Warm, Dry, left buttock area wound cover with dressing Neurological : Alert & oriented x3, No focal deficit DS: Data Data Completed and Pending Labs on day of discharge: Laboratory Results - last 24 hr 10/02/23 10/02/23 10/02/23 11:23 17:05 20:40 WBC RBC Hgb Hct MCV MCH MCHC RDW Plt Count MPV Absolute Nucleated RBC Nucleated RBC % (auto) Sodium Potassium Chloride Carbon Dioxide Anion Gap BUN Creatinine Estim Creat Clear Calc Estimated GFR POC Glucose 102 113 194 H Random Glucose Calcium 10/02/23 10/03/23 10/03/23 20:45 05:44 07:17 WBC 6.6 RBC 3.27 L Hgb 10.6 L Hct 30.3 L MCV 92.7 MCH 32.4 MCHC 35.0 RDW 13.5 Plt Count 385 MPV 9.0 L Absolute Nucleated RBC 0.000 Nucleated RBC % (auto) 0.0 Sodium 139 Potassium 4.2 Chloride 110 H Carbon Dioxide 22 Anion Gap 11 L BUN 32 H Creatinine 1.20 Estim Creat Clear Calc 62.7 Estimated GFR > 60 POC Glucose 200 H 116 H Random Glucose 134 H Calcium 8.[address] scan - abdomen: Radiologist's impression: ITS Impressions Abdomen/Pelvis CT 10/01/23 21:25 IMPRESSION: 1. A cause for the patient's abdominal pain, vomiting and acute kidney injury has not been found. 2. Incidental note made of mild cardiomegaly, cholelithiasis, mild splenomegaly, sigmoid anastomosis and degenerative changes in the spine. Fleischner guidelines were followed. Discharge Plan Discharge Anticipated Discharge Date/Time: 10/03/23 11:24 Patient Disposition: Home Health Service Discharge Diagnosis: Acute kidney injury Lt buttock abscess Referrals: Physician,Unknown J [Primary Care Provider] - 1 Week Discharge Medications: New doxycycline monohydrate 100 mg capsule 100 mg PO BID Qty: 14 0RF Continued (DME) lancets [TRUEplus Lancets] 33 gauge misc See Rx Instructions .ROUTE .MEDSUPPLY Qty: 100 6RF Rx Instructions: 3 times a day levothyroxine 125 mcg tablet 125 mcg PO QAM Qty: 90 1RF Rx Instructions: NEEDS APPOINTMENT FOR MORE REFILLS atorvastatin 80 mg tablet 80 mg PO BEDTIME 30 Days Qty: 30 4RF metformin 500 mg tablet 500 mg PO BID Qty: 60 4RF cholecalciferol (vitamin D3) 50 mcg (2,000 unit) capsule 50 mcg PO QAM Qty: 30 0RF (DME) FreeStyle Lite Strips Strip See Rx Instructions .ROUTE .MEDSUPPLY Qty: 100 6RF Rx Instructions: 3times a day pantoprazole 40 mg tablet,delayed release (DR/EC) 40 mg PO QAM Qty: 90 3RF spironolactone 25 mg tablet 25 mg PO QAM Qty: 90 3RF hydralazine 100 mg tablet 100 mg PO TID 90 Days Qty: 270 3RF ranolazine 500 mg tablet extended release 12 hr 500 mg PO BID Qty: 180 3RF isosorbide mononitrate 120 mg tablet extended release 24 hr 120 mg PO DAILY Qty: 90 3RF folic acid 1 mg tablet 1 mg PO DAILY 6RF Juluvia 100 mg tablet 100 mg PO DAILY 90 Days Qty: 90 3RF lisinopril 40 mg tablet 40 mg PO QAM Qty: 90 2RF aspirin 81 mg tablet,delayed release (DR/EC) 81 mg PO QAM Qty: 90 3RF melatonin 3 mg tablet 6 mg PO BEDTIME PRN (Reason: insomnia) acetaminophen 650 mg tablet extended release 650 mg PO Q8H PRN (Reason: mild pain) tamsulosin 0.4 mg capsule 0.4 mg PO QPM docusate sodium 100 mg capsule 100 mg PO BID PRN (Reason: constipation) gabapentin 300 mg capsule 600 mg PO BEDTIME gabapentin 300 mg capsule 300 mg PO BID@0900,1800 atenolol 100 mg tablet 100 mg PO DAILY Qty: 90 4RF Discharge Orders: Discharge Order (Routine); Ordered 10/03/23 Ordered By: Jose Talavera Diet: Advance to usual diet Activity on Discharge: As tolerated Stand Alone Forms: Patient Portal Discharge page Care Plan Goals: Read below Health Concerns: Read below Plan of Treatment: Read below Assessment: You were treated for acute kidney injury with IV fluids with good response. LEft buttock abscess was drained and evaluated by surgery team. Continue antibiotics as prescribed Wound care, keep the area clean follow with PCP in 1-2 weeks
--- NOTE | 2023-10-03 11:44 | W.MHC.F2F ---
Service Date Service Date: 10/03/23 Encounter Date of encounter: 10/03/23 Reasons for Services Signs and symptoms assessed: Left buttock abscess Reason for nursing home: wound care and teach disease management Homebound: Leaving the home is medically contraindicated at this time without the asist of a device and/or another person due th the listed conditions above and below. Reason homebound: unable to drive Certification: Based on the above findings, I certify that this patient is confined to the home and needs intermittent nursing home care, physical therapy and/or speech therapy, or continues to need occupational therapy. The patient is under my care, and I have initiated the establishment of the plan of care. The patient will be followed by a physician who will periodically review the plan of care. Time Spent With Patient Time: Total time managing care of this patient today ____ minutes.
--- NOTE | 2023-10-03 11:50 | MHC.CM.PN ---
DP: PT HAS BEEN MEDICALLY CLEARED FOR DC HOME WITH NEW [facility] FOR [facility]. [facility] NOTIFIED OF TODAY'S DC. RN AWARE. PT BOOKED WITH [facility] AT 1:30 PM.
[2023-10-03 11:54] LABS: Glucose, Whole Blood 144 mg/dL (60-115)
[2023-10-03] MEDS: Tamsulosin HCL 0.4 MG CAPSULE PO (11:57)
[2023-10-03] MEDS: hydrALAZINE HCl 50 MG TABLET 100 MG PO (11:57)
== END 2023-10-03 12:54 | disposition home health service (06) | DRG 683 ==
LOC: HO.ED 17:53 → HO.EDOVER 21:26 → HO.S3 10-02 08:14
PROVIDERS: Physician Assistant; Admitting Provider Internal Medicine; Emergency Provider Emergency Medicine Emergency Medical Services; PCP Nurse Practitioner Primary Care; Visit Provider Student in an Organized Health Care Education/Training Program
DX: N17.9 Acute kidney failure, unspecified (principal); E87.0 Hyperosmolality and hypernatremia; L02.31 Cutaneous abscess of buttock; L03.317 Cellulitis of buttock; I25.10 Atherosclerotic heart disease of native coronary artery without angina pectoris; N40.0 Benign prostatic hyperplasia without lower urinary tract symptoms; I12.9 Hypertensive chronic kidney disease with stage 1 through stage 4 chronic kidney disease, or unspecified chronic kidney disease; N18.30 Chronic kidney disease, stage 3 unspecified; E11.22 Type 2 diabetes mellitus with diabetic chronic kidney disease; E11.42 Type 2 diabetes mellitus with diabetic polyneuropathy; E78.5 Hyperlipidemia, unspecified; E03.9 Hypothyroidism, unspecified; Z95.1 Presence of aortocoronary bypass graft; Z79.82 Long term (current) use of aspirin; Z79.84 Long term (current) use of oral hypoglycemic drugs; Z79.899 Other long term (current) drug therapy
CPT/HCPCS: 36415; 74176; 80048; 80053; 81001; 82550; 82803; 82947; 83036; 83690; 83735; 84100; 84484; 85007; 85027; 93005; 99285; J1644

== ENCOUNTER → 2023-10-01 14:21 | Outpatient (BNV) | payer OTHER, SELFPAY | PROVIDERS: Emergency Provider Emergency Medicine Emergency Medical Services; Visit Provider Internal Medicine Cardiovascular Disease | DX: R00.1 Bradycardia, unspecified (principal) | CPT/HCPCS: 93010 ==

== ENCOUNTER → 2023-10-01 20:44 | Outpatient (BNV) | payer OTHER, SELFPAY | PROVIDERS: Admitting Provider Internal Medicine; Emergency Provider Emergency Medicine Emergency Medical Services; Visit Provider Internal Medicine | DX: N17.9 Acute kidney failure, unspecified (principal); L02.31 Cutaneous abscess of buttock; R63.8 Other symptoms and signs concerning food and fluid intake; R19.7 Diarrhea, unspecified; E86.9 Volume depletion, unspecified | CPT/HCPCS: 99223; 99233; 99239; G0180 ==

== ENCOUNTER → 2023-10-01 20:44 | Outpatient (BNV) | payer OTHER, SELFPAY | PROVIDERS: Admitting Provider Internal Medicine; Emergency Provider Emergency Medicine Emergency Medical Services; Visit Provider Internal Medicine Nephrology | DX: N17.9 Acute kidney failure, unspecified (principal); N18.30 Chronic kidney disease, stage 3 unspecified | CPT/HCPCS: 99223; 99232 ==

== ENCOUNTER → 2023-10-01 20:44 | Outpatient (BNV) | payer OTHER, SELFPAY | PROVIDERS: Admitting Provider Internal Medicine; Emergency Provider Emergency Medicine Emergency Medical Services; Visit Provider Physician Assistant Surgical | DX: R63.8 Other symptoms and signs concerning food and fluid intake (principal); L02.31 Cutaneous abscess of buttock | CPT/HCPCS: 99221 ==

== ENCOUNTER 2023-10-25 09:25 | Outpatient (REF) | payer OTHER, SELFPAY ==
[2023-10-25 11:44] LABS: MANUAL DIFF FLAG NO
[2023-10-25 12:09] LABS: Alanine Aminotransferase 26 U/L (0-40); Albumin Level 4.1 g/dL (3.5-5.0); Alkaline Phosphatase 70 U/L (39-117); Anion Gap 10 (12-20); Aspartate Amino Transferase 17 U/L (5-37); Bilirubin Direct 0.2 mg/dL (0.0-0.5); Bilirubin Total 0.4 mg/dL (0.0-1.0); Blood Urea Nitrogen 15 mg/dL (9-16); Calcium 9.3 mg/dL (8.4-10.2); Carbon Dioxide 28 mmol/L (22-29); Chloride 106 mmol/L (96-108); Estimated Glomerular Filt Rate 53; Glucose Random 135 mg/dL (60-115); Potassium 4.9 mmol/L (3.3-5.1); Sodium 139 mmol/L (135-145); Total Protein 7.7 g/dL (6.5-8.0)
[2023-10-25 12:11] LABS: Basophils Percent Auto 0.9 % (0-2); Eosinophils Absolute Auto 0.1 X10*3/uL (0.0-0.4); Eosinophils Percent Auto 4.4 % (0-4); Hemoglobin 12.6 g/dl (14.0-18.0); Imm Gran Abs Auto 0.01 X10*3/uL (0.00-0.03); Imm Gran Pct Auto 0.3 % (0.0-0.4); Lymphocytes Absolute Auto 1.4 X10*3/uL (1.2-4.9); Mean Corpuscular HGB Conc 34.1 g/dl (31.0-36.0); Mean Corpuscular Hemoglobin 33.2 pg (27.0-33.0); Mean Corpuscular Volume 97.4 fL (80.0-98.0); Mean Platelet Volume 9.4 fL (9.4-12.4); Monocytes Absolute Auto 0.3 X10*3/uL (0.1-1.2); Monocytes Percent Auto 10.4 % (2-11); Neutrophils Absolute Auto 1.3 x10*3/uL (2.0-8.3); Platelet Count 162 X10*3/uL (160-400); Red Cell Distribution Width 14.5 % (11.0-16.0); White Blood Count 3.2 X10*3/uL (4.8-10.8)
[2023-10-25 12:37] LABS: Folate 16.9 ng/mL (> or = 4.0); Vitamin B12 439 pg/mL (200-900)
== END 2023-10-25 09:26 | disposition home or self-care (01) ==
LOC: HO.HHCL 09:25
PROVIDERS: Visit Provider Nurse Practitioner Primary Care
DX: R20.2 Paresthesia of skin (principal); R20.0 Anesthesia of skin; N17.9 Acute kidney failure, unspecified
CPT/HCPCS: 36415; 80048; 80076; 82607; 82746; 85025

== ENCOUNTER 2023-11-20 11:21 | Outpatient (REF) | payer OTHER, SELFPAY ==
[2023-11-20 14:10] LABS: Iron 137 mcg/dL (45-160); Percent Iron Saturation 54 % (15-50); Total Iron Binding Capacity 252 mcg/dL (228-428); Unsaturated Iron Binding 115 ug/dL
[2023-11-20 14:37] LABS: Ferritin 67 ng/mL (20-250)
== END 2023-11-20 11:22 | disposition home or self-care (01) ==
LOC: HO.HHCL 11:21
PROVIDERS: Visit Provider Student in an Organized Health Care Education/Training Program
DX: D64.9 Anemia, unspecified (principal)
CPT/HCPCS: 36415; 82728; 83540

== ENCOUNTER 2023-11-21 11:08 | Outpatient (REF) | payer OTHER, SELFPAY ==
--- NOTE | ~2023-11-21 | XR_ITS ---
EXAMINATION: XR HIP, RIGHT CLINICAL INFORMATION: Ongoing right hip pain. COMPARISON: Lumbar spine 04/05/2023. TECHNIQUE: Two views of the right hip. FINDINGS: Moderate narrowing of the right hip joint space with mild lateral acetabular hypertrophic change. Right hip alignment preserved. XR/XR hip RT min 2V IMPRESSION: Moderate degenerative changes in the right hip.
== END 2023-11-21 11:09 | disposition home or self-care (01) ==
LOC: HO.HHCX 11:08
PROVIDERS: Visit Provider Student in an Organized Health Care Education/Training Program
DX: M25.551 Pain in right hip (principal)
CPT/HCPCS: 73502

== ENCOUNTER 2023-11-26 09:21 | Outpatient (REF) | payer OTHER, SELFPAY ==
[2023-11-26 11:50] LABS: Appearance Urine Clear; Color Urine Yellow; Glucose Urine UA Negative (Negative); Leukocyte Esterase Urine Trace (Negative); Nitrite Urine Negative (Negative); UMIC TRIGGER UA YES; Urine Blood Negative (Negative); Urine Ketones Negative (Negative); Urine Protein Negative (Neg-Trace)
[2023-11-26 11:56] LABS: Bacteria Urine None Seen (None Seen); Hyaline Casts Urine 0-2 /LPF (0-2); RBC Urine 0-2 /HPF (0-2); Squamous Epithelial Cell Urine 0-2 /HPF (0-2); WBC Urine 0-5 /HPF (0-5)
[2023-11-26 12:27] LABS: Creatinine Urine 118.24 mg/dL; Total Protein Urine Random 12 mg/dL (<12)
[2023-11-26 12:58] LABS: Anion Gap 12 (12-20); Blood Urea Nitrogen 30 mg/dL (9-16); Calcium 9.7 mg/dL (8.4-10.2); Carbon Dioxide 21 mmol/L (22-29); Chloride 110 mmol/L (96-108); Phosphorus 3.6 mg/dL (2.7-4.5); Potassium 7.1 mmol/L (3.3-5.1); Sodium 136 mmol/L (135-145)
[2023-11-26 16:09] LABS: Parathyroid Hormone Intact 42.6 pg/mL (8.7-77.1)
[2023-11-29 17:42] LABS: VITAMIN D (1,25 OH) D3 16 pg/mL; Vit D (1,25-Dihydroxy) Total 16 pg/mL (18-72); Vitamin D (1,25 OH) D2 <8 pg/mL
[2023-12-02 16:39] LABS: Kappa, Serum 320 mg/dL (176-443); Kappa/Lambda Ratio, Serum 1.55 (1.29-2.55); Lambda, Serum 207 mg/dL (91-240)
== END 2023-11-26 09:22 | disposition home or self-care (01) ==
LOC: HO.HHCL 09:21
PROVIDERS: Visit Provider Student in an Organized Health Care Education/Training Program
DX: Z13.89 Encounter for screening for other disorder (principal)
CPT/HCPCS: 36415; 80051; 81001; 82310; 82570; 82652; 83883; 83970; 84100; 84156; 84520

== ENCOUNTER 2023-11-26 12:19 | Inpatient (IN) | payer OTHER, SELFPAY ==
[2023-11-26] VITALS (7 sets, daily range): BP systolic 104–159; BP diastolic 38–80; PULSE 52–79; RESP 16–20; TEMP 36.3–36.5; O2SAT 96–100; BMI 24.3
--- NOTE | 2023-11-26 12:35 | ED_ITS ---
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 Related Data Home Medications ?Medication ?Instructions ?Recorded ?Confirmed acetaminophen 650 mg 650 mg PO Q8H PRN mild pain 10/01/23 11/26/23 tablet,extended release docusate sodium 100 mg capsule 100 mg PO BID PRN constipation 10/01/23 11/26/23 gabapentin 300 mg capsule 300 mg PO BID@0900,1800 10/01/23 11/26/23 gabapentin 300 mg capsule 600 mg PO BEDTIME 10/01/23 11/26/23 melatonin 3 mg tablet 6 mg PO BEDTIME PRN insomnia 10/01/23 11/26/23 tamsulosin 0.4 mg capsule 0.4 mg PO QPM 10/01/23 11/26/23 sulfamethoxazole 800 1 tab PO BID 11/26/23 11/26/23 mg-trimethoprim 160 mg tablet Previous Rx's ?Medication ?Instructions ?Recorded atenolol 100 mg tablet 100 mg PO DAILY #90 tabs 12/20/20 lancets 33 gauge (TRUEplus Lancets) #100 ea 04/04/21 levothyroxine 125 mcg tablet 125 mcg PO QAM for disorder of 05/29/21 thyroid gland #90 tabs atorvastatin 80 mg tablet 80 mg PO BEDTIME for cholesterol 09/20/21 30 days #30 tabs metformin 500 mg tablet 500 mg PO BID #60 tabs 09/20/21 cholecalciferol (vitamin D3) 50 50 mcg PO QAM #30 caps 10/23/21 mcg (2,000 unit) capsule blood sugar diagnostic (FreeStyle #100 ea 02/08/22 Lite Strips) isosorbide mononitrate 120 mg 120 mg PO DAILY #90 tabs 02/08/23 tablet,extended release 24 hr ranolazine 500 mg tablet,extended 500 mg PO BID #180 tabs 02/08/23 release,12 hr folic acid 1 mg tablet 1 mg PO DAILY 03/28/23 aspirin 81 mg tablet,delayed 81 mg PO QAM #90 tabs 06/18/23 release lisinopril 40 mg tablet 40 mg PO QAM #90 tabs 06/18/23 sitagliptin phosphate 100 mg 100 mg PO DAILY 90 days #90 tabs 06/18/23 tablet (Januvia) pantoprazole 40 mg tablet,delayed 40 mg PO QAM for heartburn #90 tabs 10/13/23 release hydralazine 100 mg tablet 100 mg PO TID #270 tabs 11/12/23 spironolactone 25 mg tablet 25 mg PO QAM #90 tabs 11/12/23 Allergies Allergy/AdvReac Type Severity Reaction Status Date / Time amlodipine AdvReac Unknown leg edema Verified 11/26/23 12:39 Review of Systems 2 Review of Systems: Pertinent positives and negatives as stated in [facility] Past Medical History Source: nursing notes reviewed Medical History Acquired hypothyroidism Dyslipidemia NSVT (nonsustained ventricular tachycardia) Atherosclerotic cardiovascular disease Coronary artery arteriosclerosis Essential hypertension Type 2 diabetes mellitus with diabetic polyneuropathy Surgical History History of colon resection Hx of colonoscopy History of cardiac catheterization Family History Family History Father No problems noted. Mother No problems noted. 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) Alcohol intake: current Alcohol intake frequency: holidays/special occasions only Patient Tobacco Use Status: Never used Tobacco Smoked in Last 30 Days: No Second Hand Smoke Exposure: No Use of substances other than those prescribed or required for medical reasons: No Advance Directives: Yes Advance Directives on File: Yes Advance Directives Date on File: 10/03/20 Do you have a plan to hurt others: No Plan service: No Physical Exam 2 Vital Signs: Vital Signs: Last Vital Signs Temp 97.3 F 11/26/23 12:36 Pulse 55 11/26/23 15:06 Resp 16 11/26/23 15:06 BP 107/80 11/26/23 15:06 Pulse Ox 96 11/26/23 15:06 O2 Del Method Room Air 11/26/23 15:06 BMI result Body Mass Index 24.3 VITAL SIGNS: Reviewed. GENERAL: Well developed, well nourished, in no acute distress. HEAD: Normocephalic/atraumatic EYES: PERRLA, EOMI, patient blind in left eye EARS: Ext canals without abnormality NOSE: Nares patent bilateral OROPHARYNX: no oral lesions noted, posterior pharynx clear NECK: Supple, no adenopathy LUNGS: Normal breath sounds. No adventitious sounds or accessory muscle use. SpO2<96> CARDIOVASCULAR: Regular rate and rhythm without noted murmurs ABDOMEN: Soft, non-tender, non-distended with bowel sounds. MUSCULOSKELETAL: No tenderness, deformities, or effusions noted on gross inspection. EXTREMITIES: No cyanosis, clubbing or edema. SKIN: Inspection of the skin reveals no rashes NEUROLOGIC: Alert and oriented x 4. Strength and sensation to light touch were grossly intact x 4. Course Course Course Narrative: This is a rapid medical exam completed by Cleo CLASSROOM ASSISTANT: Additional HPI, ROS, PE not included below will be deferred to primary provider. At [facility] with Xrays done on 11/20 and referred to present to the ED. States that he fell 2 days ago and has been having weakness in the legs with right groin and hip pain. Reports 'pins and needles' in bilateral legs. Medications Administered Discontinued Medications Generic Name Dose Route Start Last Admin Trade Name Freq PRN Reason Stop Dose Admin Albuterol Sulfate 5 mg 11/26/23 14:45 11/26/23 14:59 Albuterol Sulfate (0.083%) 2.5 Mg/3 Ml Vial.Neb INHALE 11/26/23 14:46 5 mg ONCE ONE Administration Dextrose 250 mls @ 750 mls/hr 11/26/23 14:47 11/26/23 15:21 D10 IV 11/26/23 15:06 Infused ONCE ONE Infusion Calcium Gluconate 2 gm in 100 mls @ 400 mls/hr 11/26/23 14:47 11/26/23 14:59 Calcium Gluconate IV 11/26/23 15:01 400 mls/hr ONCE ONE Administration Insulin Human Regular 5 unit 11/26/23 14:45 11/26/23 15:18 Insulin Regular, Human 100 Unit/Ml 3 Ml Vial IVPUSH 11/26/23 14:46 5 unit ONCE ONE Administration Sodium Zirconium Cyclosilicate 10 gm 11/26/23 14:45 11/26/23 15:08 Sodium Zirconium Cyclosilicate 10 Gm Powd.Pack PO 11/26/23 14:46 10 gm ONCE ONE Administration Medical Decision Making Medical Decision Making MDM Narrative: 68-year-old male with history and clinical presentation consistent with bilateral lower extremity weakness secondary to elevated potassium and on review of medications noted you have been started on Bactrim for. INTERVENTION: Calcium gluconate, D50, insulin, Lokelma, albuterol 5 mg 1452: I discussed case with Nephrology, Dr. Harris, who identifies Bactrim is the likely causative agent and recommends admission as patient may develop rebound hyperkalemia. I reviewed all investigations and hematologic indices are chronically stable without leukocytosis and anemia without thrombocytopenia. Chemistry indices demonstrate acute on chronic renal failure with significantly elevated potassium-7.9 without evidence of metabolic acidosis or liver enzyme derangements. Urinalysis negative for UTI or hematuria. 1534: I discussed case with inpatient hospitalist who accepts admission. 1622: Repeat EKG and potassium show improvement, repeat potassium-6.7, patient remains significantly stable, hospitalist aware. Hospitalist concerned about patient coming to the floor, I spoke with Nephrology who says that patient can be given an additional dose of Lokelma and be admitted to the floor, all repeat lab work and EKG were discussed with the instrument technician helper. Differential Diagnosis Differential Diagnoses: The differential diagnosis associated with the presentation includes Please see the discussion above Admission/Observation Consideration of admission/observation: Escalation of care including admission/observation considered Please see the discussion above Consult Healthcare Provider Management of the patient was discussed with: Hospitalist and Mexican Food Cook Please see the discussion above Lab Data MDM Lab Attestation statement: I reviewed the patient's lab results. Please see the discussion above 11/26/23 13:41 11/26/23 15:59 Labs: Lab Results 11/26/23 11/26/23 11/26/23 Range/Units 13:41 14:51 14:53 WBC 4.0 L (4.8-10.8) X10*3/uL RBC 3.60 L (4.60-5.80) X10*6/uL Hgb 12.1 L (14.0-18.0) g/dl Hct 35.5 L (42.0-52.0) % MCV 98.6 H (80.0-98.0) fL MCH 33.6 H (27.0-33.0) pg MCHC 34.1 (31.0-36.0) g/dl RDW 14.6 (11.0-16.0) % Plt Count 165 (160-400) X10*3/uL MPV 8.6 L (9.4-12.4) fL Immature Gran % (Auto) 0.2 (0.0-0.4) % Neut % (Auto) 48.1 (45-73) % Lymph % (Auto) 35.6 (20-40) % [place] % (Auto) 10.9 (2-11) % Eos % (Auto) 4.2 H (0-4) % Baso % (Auto) 1.0 (0-2) % Lymph # (Auto) 1.4 (1.2-4.9) X10*3/uL [place] # (Auto) 0.4 (0.1-1.2) X10*3/uL Eos # (Auto) 0.2 (0.0-0.4) X10*3/uL Baso # (Auto) 0.0 (0.0-0.2) X10*3/uL Abs Immat Gran (auto) 0.01 (0.00-0.03) X10*3/uL Absolute Neuts (auto) 1.9 L (2.0-8.3) x10*3/uL Absolute Nucleated RBC 0.000 (0.0-0.012) X10*3/uL Nucleated RBC % (auto) 0.0 (0.0-0.2) /100WBC Sodium 136 (135-145) mmol/L Potassium 7.9 H* (3.3-5.1) mmol/L Chloride 111 H (96-108) mmol/L Carbon Dioxide 23 (22-29) mmol/L Anion Gap 10 L (12-20) BUN 32 H (9-16) mg/dL Creatinine 2.09 H (0.5-1.4) mg/dL Estim Creat Clear Calc 36.0 Estimated GFR 32 POC Glucose 54 L* 70 (60-115) mg/dL Random Glucose 85 (60-115) mg/dL Calcium 9.8 (8.4-10.2) mg/dL Total Bilirubin 0.2 (0.0-1.0) mg/dL AST 19 (5-37) U/L ALT 26 (0-40) U/L Alkaline Phosphatase 59 (39-117) U/L Total Protein 7.5 (6.5-8.0) g/dL Albumin 4.2 (3.5-5.0) g/dL 11/26/23 11/26/23 11/26/23 Range/Units 15:15 15:59 16:02 WBC (4.8-10.8) X10*3/uL RBC (4.60-5.80) X10*6/uL Hgb (14.0-18.0) g/dl Hct (42.0-52.0) % MCV (80.0-98.0) fL MCH (27.0-33.0) pg MCHC (31.0-36.0) g/dl RDW (11.0-16.0) % Plt Count (160-400) X10*3/uL MPV (9.4-12.4) fL Immature Gran % (Auto) (0.0-0.4) % Neut % (Auto) (45-73) % Lymph % (Auto) (20-40) % [place] % (Auto) (2-11) % Eos % (Auto) (0-4) % Baso % (Auto) (0-2) % Lymph # (Auto) (1.2-4.9) X10*3/uL [place] # (Auto) (0.1-1.2) X10*3/uL Eos # (Auto) (0.0-0.4) X10*3/uL Baso # (Auto) (0.0-0.2) X10*3/uL Abs Immat Gran (auto) (0.00-0.03) X10*3/uL Absolute Neuts (auto) (2.0-8.3) x10*3/uL Absolute Nucleated RBC (0.0-0.012) X10*3/uL Nucleated RBC % (auto) (0.0-0.2) /100WBC Sodium 135 (135-145) mmol/L Potassium 6.7 H* (3.3-5.1) mmol/L Chloride 109 H (96-108) mmol/L Carbon Dioxide 20 L (22-29) mmol/L Anion Gap 13 (12-20) BUN 33 H (9-16) mg/dL Creatinine 2.15 H (0.5-1.4) mg/dL Estim Creat Clear Calc 35.0 Estimated GFR 31 POC Glucose 141 H 108 (60-115) mg/dL Random Glucose 120 H (60-115) mg/dL Calcium 10.1 (8.4-10.2) mg/dL Total Bilirubin (0.0-1.0) mg/dL AST (5-37) U/L ALT (0-40) U/L Alkaline Phosphatase (39-117) U/L Total Protein (6.5-8.0) g/dL Albumin (3.5-5.0) g/dL Independent Interpretation I performed an independent interpretation of an: EKG Interpretation: Sinus bradycardia, HR-53, peaked T-waves, no STEMI, ME borderline, QRS-120, QTC within normal limits with prolonged QT consistent with elevated potassium levels Sinus bradycardia, HR-53, there are no further peaked T-waves, is within normal limits, QRS and QTC are within normal limits and resolving QT prolongation. External Record Review External record reviewed: Outpatient record, Prior outpatient labs and Prior outpatient radiology Chronic Conditions Patient?s care impacted by: Diabetes and Hypertension Critical Care Time Critical Care Time Critical Care Time: Yes Total Critical Care Time: 60 Attestation: I personally attest to this time spent taking care of the patient. Discharge Plan Discharge Clinical Impression: Hyperkalemia, Acute on chronic renal failure Patient Disposition: Admitted As Inpatient Print Language: Greek
[2023-11-26 13:46] LABS: MANUAL DIFF FLAG NO
[2023-11-26 13:47] LABS: Eosinophils Absolute Auto 0.2 X10*3/uL (0.0-0.4); Eosinophils Percent Auto 4.2 % (0-4); Hematocrit 35.5 % (42.0-52.0); Hemoglobin 12.1 g/dl (14.0-18.0); Imm Gran Abs Auto 0.01 X10*3/uL (0.00-0.03); Imm Gran Pct Auto 0.2 % (0.0-0.4); Lymphocytes Absolute Auto 1.4 X10*3/uL (1.2-4.9); Lymphocytes Percent Auto 35.6 % (20-40); Mean Corpuscular HGB Conc 34.1 g/dl (31.0-36.0); Mean Corpuscular Hemoglobin 33.6 pg (27.0-33.0); Mean Corpuscular Volume 98.6 fL (80.0-98.0); Mean Platelet Volume 8.6 fL (9.4-12.4); Monocytes Absolute Auto 0.4 X10*3/uL (0.1-1.2); Monocytes Percent Auto 10.9 % (2-11); Neutrophils Absolute Auto 1.9 x10*3/uL (2.0-8.3); Neutrophils Percent Auto 48.1 % (45-73); Platelet Count 165 X10*3/uL (160-400); Red Cell Distribution Width 14.6 % (11.0-16.0)
[2023-11-26 14:32] LABS: Alanine Aminotransferase 26 U/L (0-40); Albumin Level 4.2 g/dL (3.5-5.0); Alkaline Phosphatase 59 U/L (39-117); Anion Gap 10 (12-20); Aspartate Amino Transferase 19 U/L (5-37); Bilirubin Total 0.2 mg/dL (0.0-1.0); Blood Urea Nitrogen 32 mg/dL (9-16); Calcium 9.8 mg/dL (8.4-10.2); Carbon Dioxide 23 mmol/L (22-29); Chloride 111 mmol/L (96-108); Estimated Glomerular Filt Rate 32; Glucose Random 85 mg/dL (60-115); Potassium 7.9 mmol/L (3.3-5.1); Sodium 136 mmol/L (135-145); Total Protein 7.5 g/dL (6.5-8.0)
--- NOTE | 2023-11-26 14:37 | ECG_ITS ---
Test Reason : ABNORMAL LAB Blood Pressure : / mmHG Vent. Rate : 053 BPM Atrial Rate : 053 BPM P-R Int : 200 ms QRS Dur : 120 ms QT Int : 418 ms P-R-T Axes : 040 077 052 degrees QTc Int : 392 ms Sinus bradycardia Non-specific intra-ventricular conduction delay Borderline ECG When compared with ECG of 01-OCT-2023 14:31, Nonspecific T wave abnormality no longer evident in Inferior leads Referred By: Josephine Mendez Electronically Signed By:DUNIA WINN
[2023-11-26] MEDS: Dextrose 10 % 250 ML 750 ML IV ×2 (14:53→18:30)
[2023-11-26 14:58] LABS: Glucose, Whole Blood 70 mg/dL (60-115)
[2023-11-26 14:58] LABS: Glucose, Whole Blood 54 mg/dL (60-115)
[2023-11-26] MEDS: Calcium Gluconate/NaCl,Iso-Osm 2 GM/100 ML PLAST..BAG IV (14:59)
[2023-11-26] MEDS: Albuterol Sulfate (0.083%) 2.5 MG/3 ML VIAL.NEB 5 MG INHALE ×2 (14:59→18:21)
[2023-11-26] MEDS: Sodium Zirconium Cyclosilicate 10 GM POWD.PACK PO ×2 (15:08→17:42)
[2023-11-26 15:18] LABS: Glucose, Whole Blood 141 mg/dL (60-115)
[2023-11-26] MEDS: Insulin Regular, Human 100 UNIT/ML 3 ML VIAL IVPUSH ×2 (15:18→18:46)
--- NOTE | 2023-11-26 15:35 | ECG_ITS ---
Test Reason : HYPERKALEMIA Blood Pressure : / mmHG Vent. Rate : 053 BPM Atrial Rate : 053 BPM P-R Int : 194 ms QRS Dur : 104 ms QT Int : 402 ms P-R-T Axes : 034 059 067 degrees QTc Int : 377 ms Sinus bradycardia Otherwise normal ECG When compared with ECG of 26-NOV-2023 14:37, No significant change was found Referred By: Kary Lim Electronically Signed By:DUNIA WINN
--- NOTE | 2023-11-26 15:47 | PC.NURSE ---
Pt is alert and oriented, gabonese speaking primarily. Sinus reji on tele. 18g left ac placed by covering RN and additional 20g to left forearm obtained. K+ elevated, medicated with calcium gluconate, D10 (BS 50-70s), repeat blood sugar 140s after D10 completion and Insulin 5 units IV given as ordered. Albuterol updraft given. Pt drank apple juice and Lokelma. VSS stable. Repeat EKG and chemistry at this time
[2023-11-26 16:10] LABS: Glucose, Whole Blood 108 mg/dL (60-115)
[2023-11-26 16:20] LABS: Anion Gap 13 (12-20); Blood Urea Nitrogen 33 mg/dL (9-16); Calcium 10.1 mg/dL (8.4-10.2); Carbon Dioxide 20 mmol/L (22-29); Chloride 109 mmol/L (96-108); Estimated Glomerular Filt Rate 31; Glucose Random 120 mg/dL (60-115); Potassium 6.7 mmol/L (3.3-5.1); Sodium 135 mmol/L (135-145)
--- NOTE | 2023-11-26 16:41 | PHA.MEDREC ---
Pharmacy Consult ? Medication Reconciliation Pharmacy has completed the medication reconciliation. Patient gets medbox from [facility]. Received list from the pharmacy. Priscilla Malhotra, JasminD
[2023-11-26] MEDS: 0.9 % Sodium Chloride 500 ML 999 ML IV (17:42)
--- NOTE | 2023-11-26 17:48 | PC.NURSE ---
hosspitalist at bedside
[2023-11-26 18:17] LABS: Glucose, Whole Blood 67 mg/dL (60-115)
--- NOTE | 2023-11-26 18:37 | P.HPHOSP_ITS ---
History of Present Illness Date of Service: 11/26/23 Attending physician on admission: Torrie Almaraz Chief Complaint: ble weakness/tingling 68 year old male with history of htn, hld, ckd stage 3, CAD, 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 He states that he has been taking bactrim prescribed by pcp for an unspecified infection of the colon (?) per patient started on 11/19 x 10 days last taken this morning. He is taking this along with lisinopril 40mg and spironolactone 25mg daily. He denies fevers, chills, abd pain/v/d, urinary symptoms, cough, sob, lighteadheadedness, palpitations, sob, chest pain. On arrival VSS. Hematology studies baseline. Initial K at this morning 7.1 and transferred to ED for further eval. On arrival, creat 2.09, baseline 1.35, BUN 32. K increased to 7.9, lytes otherwise unremarkable. No acidosis. Given 5 units regular insulin, d10, albuterol, calcium gluconate, and lokelma. K improved to 6.7, creat increased to 2.15. He has been eating and drinking well until this morning when he developed anorexia, nausea. ED discussed case with nephrology recommending admission to floor. Given addl 5 units regular insulin, d10, albuterol and will recheck BMP now. Review of Systems 2 Review of Systems: General: No fevers, malaise, unintentional weight loss HEENT: No blurred vision, diplopia. No sore throat, nasal congestion, rhinorrhea, sinus pain, ear pain Cardiovascular: No chest pain, palpitations, or leg edema Respiratory: No shortness of breath, wheezing, cough GI: +nausea, +anorexia. No abdominal pain, vomiting, diarrhea, constipation, melena, hematochezia : No dysuria, hematuria, increased urinary frequency, decreased urinary output MSK: No myalgia, back pain Neuro: No headaches, paresthesias. +BLE weakness Skin: No rashes or lesions [facility] Medical History Acquired hypothyroidism Dyslipidemia NSVT (nonsustained ventricular tachycardia) Atherosclerotic cardiovascular disease Coronary artery arteriosclerosis Essential hypertension Type 2 diabetes mellitus with diabetic polyneuropathy Family History Father No problems noted. Mother No problems noted. 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) Alcohol intake: current Alcohol intake frequency: holidays/special occasions only Patient Tobacco Use Status: Never used Tobacco Smoked in Last 30 Days: No Second Hand Smoke Exposure: No Use of substances other than those prescribed or required for medical reasons: No Advance Directives: Yes Advance Directives on File: Yes Advance Directives Date on File: 10/03/20 Do you have a plan to hurt others: No Plan service: No Meds Allergies Allergy/AdvReac Type Severity Reaction Status Date / Time amlodipine AdvReac Unknown leg edema Verified 11/26/23 12:39 Active Medications: Current Medications Dextrose (D10) 250 mls @ 750 mls/hr IV .Q20M ONE Stop: 11/26/23 18:49 Last Admin: 11/26/23 18:30 Dose: 750 mls/hr Home Medications ?Medication ?Instructions ?Recorded ?Confirmed ?Last Taken ?Type acetaminophen 650 mg 650 mg PO Q8H PRN mild pain 10/01/23 11/26/23 Unknown History tablet,extended release docusate sodium 100 mg capsule 100 mg PO BID PRN constipation 10/01/23 11/26/23 Unknown History gabapentin 300 mg capsule 300 mg PO BID@0900,1800 10/01/23 11/26/23 Unknown History gabapentin 300 mg capsule 600 mg PO BEDTIME 10/01/23 11/26/23 Unknown History melatonin 3 mg tablet 6 mg PO BEDTIME PRN insomnia 10/01/23 11/26/23 Unknown History tamsulosin 0.4 mg capsule 0.4 mg PO QPM 10/01/23 11/26/23 Unknown History sulfamethoxazole 800 1 tab PO BID 11/26/23 11/26/23 Unknown History mg-trimethoprim 160 mg tablet Physical Exam 2 Vital Signs and Narrative: Vital Signs: Last Vital Signs Temp 97.3 F 11/26/23 12:36 Pulse 57 11/26/23 18:22 Resp 16 11/26/23 18:22 BP 159/66 H 11/26/23 17:46 Pulse Ox 100 11/26/23 17:46 O2 Del Method Room Air 11/26/23 17:46 BMI result Body Mass Index 24.3 Constitutional - Awake and Alert, No apparent distress Eyes - PERRLA, EOMI Cardiovascular - S1S2, RRR, No edema Respiratory - Normal lung expansion, Normal respiratory effort, No respiratory distress, CTA bilaterally Gastrointestinal - NT / ND; +BS; No rebound or guarding Extremities - no calf tenderness bilaterally, no swelling Skin - Warm/Dry Neurological - Alert & oriented x3, 5/5 strength BUE and BLE Psychological - Appropriate affect Results Labs 11/26/23 13:41 11/26/23 19:38 Labs: Laboratory Results - last 24 hr 11/26/23 11/26/23 11/26/23 13:41 14:51 14:53 MCV 98.6 H MCH 33.6 H MCHC 34.1 RDW 14.6 Plt Count 165 MPV 8.6 L Immature Gran % (Auto) 0.2 Neut % (Auto) 48.1 Lymph % (Auto) 35.6 [place] % (Auto) 10.9 Eos % (Auto) 4.2 H Baso % (Auto) 1.0 Lymph # (Auto) 1.4 [place] # (Auto) 0.4 Eos # (Auto) 0.2 Baso # (Auto) 0.0 Abs Immat Gran (auto) 0.01 Absolute Neuts (auto) 1.9 L Absolute Nucleated RBC 0.000 Nucleated RBC % (auto) 0.0 Anion Gap 10 L Estim Creat Clear Calc 36.0 Estimated GFR 32 POC Glucose 54 L* 70 Random Glucose 85 Calcium 9.8 Total Bilirubin 0.2 AST 19 ALT 26 Alkaline Phosphatase 59 Total Protein 7.5 Albumin 4.2 11/26/23 11/26/23 11/26/23 15:15 15:59 16:02 MCV MCH MCHC RDW Plt Count MPV Immature Gran % (Auto) Neut % (Auto) Lymph % (Auto) [place] % (Auto) Eos % (Auto) Baso % (Auto) Lymph # (Auto) [place] # (Auto) Eos # (Auto) Baso # (Auto) Abs Immat Gran (auto) Absolute Neuts (auto) Absolute Nucleated RBC Nucleated RBC % (auto) Anion Gap 13 Estim Creat Clear Calc 35.0 Estimated GFR 31 POC Glucose 141 H 108 Random Glucose 120 H Calcium 10.1 Total Bilirubin AST ALT Alkaline Phosphatase Total Protein Albumin 11/26/23 18:13 MCV MCH MCHC RDW Plt Count MPV Immature Gran % (Auto) Neut % (Auto) Lymph % (Auto) [place] % (Auto) Eos % (Auto) Baso % (Auto) Lymph # (Auto) [place] # (Auto) Eos # (Auto) Baso # (Auto) Abs Immat Gran (auto) Absolute Neuts (auto) Absolute Nucleated RBC Nucleated RBC % (auto) Anion Gap Estim Creat Clear Calc Estimated GFR POC Glucose 67 Random Glucose Calcium Total Bilirubin AST ALT Alkaline Phosphatase Total Protein Albumin Assessment and Plan (1) Acute on chronic renal failure: Status: Acute (2) Hyperkalemia: Status: Acute Plan 68 year old male with history of htn, hld, ckd stage 3, CAD, 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 #Acute hyperkalemia -In the setting of spironolactone, lisinopril, Bactrim use -K --> 7.1 --> 7.9 --> 6.7 after 5 units regular insulin, D10, albuterol x1, calcium gluconate, and Lokelma -give additional dose Lokelma, 5 units regular insulin, D10, albuterol x1 -repeat BMP q.6h -nephrology consult -hold lisinopril, spironolactone, Bactrim -EKG without significant T-wave abnormality -monitor on telemetry # acute kidney injury-related to above -creatinine 2.06 --> 2.17, baseline 1.3 (CKD stage 3) -continue IV fluids -avoid nephrotoxins -monitor I&O -follow renal function, lytes # CAD/HLD -no chest pain, EKG without acute ischemic changes -continue ASA, beta-italo, statin # hypertension -hold lisinopril, spironolactone in setting of above. Continue metoprolol -monitor blood pressures # bca-[id number] type 2 diabetes -hold metformin -POC glucose, diabetic diet -Humalog on sliding scale # diabetic polyneuropathy -hold gabapentin # unspecified: Infection? Per patient -obtain records from [facility]. Hold Bactrim. Consider alternative abx if indicated DVT prophylaxis- heparin Full code Pt requires inpt stay at least 2 midnight for management of refractory hyperkalemia requiring serial monitoring of renal fx/lytes, cardiac monitoring, and elecrolyte reversal with expert consulation Quality Stroke Does the patient have a stroke diagnosis?: No VTE Prior VTE?: No VTE Risk Level:: Medical - moderate - high VTE Device Contraindication: Treatment Not Indicated VTE Drug Contraindication: N/A - Med Ordered
[2023-11-26 18:52] LABS: Glucose, Whole Blood 116 mg/dL (60-115)
[2023-11-26 19:45] LABS: Venous Blood Gas Refer to POC result
[2023-11-26 19:46] LABS: VBG Base Excess -4.6 mmol/L; VBG HCO3 20 mmol/L (22-26); VBG pCO2 37 mmHg; VBG pH 7.34 (7.32-7.43); VBG pO2 47 mmHg
[2023-11-26 20:11] LABS: Anion Gap 12 (12-20); Blood Urea Nitrogen 31 mg/dL (9-16); Calcium 9.8 mg/dL (8.4-10.2); Carbon Dioxide 19 mmol/L (22-29); Chloride 110 mmol/L (96-108); Creatinine Clr Calc Pharmacy 36.3; Estimated Glomerular Filt Rate 32; Glucose Random 121 mg/dL (60-115); Sodium 135 mmol/L (135-145)
[2023-11-26] MEDS: Ranolazine 500 MG TAB.ER.12H PO (22:07)
[2023-11-26] MEDS: hydrALAZINE HCl 50 MG TABLET 100 MG PO (22:07)
[2023-11-26] MEDS: Atorvastatin Calcium 80 MG TABLET PO (22:09)
[2023-11-26] MEDS: Heparin Sodium,Porcine 5,000 UNIT/ML VIAL 5000 UNIT SUBCUT (22:09)
[2023-11-26] MEDS: Tamsulosin HCL 0.4 MG CAPSULE PO (22:09)
--- NOTE | 2023-11-26 22:51 | PC.NURSE ---
This information writer assumed care of this Pt at 1900. Pt A&Ox3, denies any pain. Pt medicated per MAR. Given sandwhich and PO fluids. Pt using urinal at bedside. Plan of care on going.
[2023-11-27] VITALS (8 sets, daily range): BP systolic 90–152; BP diastolic 41–75; PULSE 54–81; RESP 13–20; TEMP 36.1–36.8; O2SAT 95–99; BMI 24.2
--- NOTE | 2023-11-27 02:05 | PC.NURSE ---
Pt aox3 resting at the bedside. No apparent distress noted. VSS. Sinus reji on monitor with HR 56. Denies any pain at this time. Urine output in urinal 450cc clear yellow urine. Call gomes placed within reach. Pending bed assingment. Pt aware of plan of care. Monitoring is ongoing.
[2023-11-27 02:57] LABS: Anion Gap 14 (12-20); Blood Urea Nitrogen 27 mg/dL (9-16); Calcium 9.5 mg/dL (8.4-10.2); Carbon Dioxide 16 mmol/L (22-29); Chloride 112 mmol/L (96-108); Estimated Glomerular Filt Rate 33; Glucose Random 143 mg/dL (60-115); Potassium 6.4 mmol/L (3.3-5.1); Sodium 136 mmol/L (135-145)
[2023-11-27] MEDS: Omeprazole 20 MG CAPSULE.DR PO (06:31)
[2023-11-27] MEDS: Levothyroxine Sodium 125 MCG TABLET PO (06:31)
[2023-11-27] MEDS: 0.9 % Sodium Chloride 1,000 ML 250 ML IVCONT (07:53)
[2023-11-27] MEDS: Sodium Zirconium Cyclosilicate 10 GM POWD.PACK PO ×2 (07:58→16:29)
--- NOTE | 2023-11-27 09:47 | MHC.CM.PN ---
IMM 11/27/23, EMR REVIEWED, CM MET W/PT VIA DIRECTOR OF LAND ACQUISITION ALTHOUGH PT DOES ANSWER SOME QUESTIONS PRIOR TO SEASONAL DRIVER RESPONDING, PT REPORTS HE LIVES ALONE, USES A CANE AND HAS BEEN REQUESTING A NEWONE, PT HAS A WALKING STICK, PT WILL BE GIVEN ONE PRIOR TO DC. 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 PT'S GOAL FOR DC IS HOME AND PT MAY NEED [facility] SHUTTLE HOME. PT VERIFIES PCP/HCP ON FILE ARE CORRECT.
[2023-11-27 10:26] LABS: Anion Gap 13 (12-20); Blood Urea Nitrogen 25 mg/dL (9-16); Calcium 9.6 mg/dL (8.4-10.2); Carbon Dioxide 17 mmol/L (22-29); Chloride 112 mmol/L (96-108); Creatinine Clr Calc Pharmacy 40.2; Estimated Glomerular Filt Rate 36; Glucose Random 113 mg/dL (60-115); Potassium 5.9 mmol/L (3.3-5.1); Sodium 136 mmol/L (135-145)
[2023-11-27] MEDS: Isosorbide Mononitrate 60 MG TAB.ER.24H 120 MG PO (10:49)
[2023-11-27] MEDS: Aspirin Enteric Coated 81 MG TABLET.DR PO (10:49)
[2023-11-27] MEDS: Heparin Sodium,Porcine 5,000 UNIT/ML VIAL 5000 UNIT SUBCUT ×2 (10:49→20:46)
[2023-11-27] MEDS: Folic Acid 1 MG TABLET PO (10:50)
[2023-11-27] MEDS: Cholecalciferol (Vitamin D3) 25 MCG TABLET 50 MCG PO (10:50)
[2023-11-27] MEDS: Sodium Bicarbonate 8.4% 150 MEQ in Dextrose 5 % 850 ML 100 MEQ IV (11:56)
[2023-11-27 13:14] LABS: Anion Gap 10 (12-20)
[2023-11-27 13:47] LABS: Blood Urea Nitrogen 21 mg/dL (9-16); Carbon Dioxide 35 mmol/L (22-29); Chloride 98 mmol/L (96-108); Creatinine Clr Calc Pharmacy 43.7; Estimated Glomerular Filt Rate 40; Glucose Random 526 mg/dL (60-115); Potassium 5.2 mmol/L (3.3-5.1); Sodium 138 mmol/L (135-145)
[2023-11-27 13:56] LABS: Glucose, Whole Blood 93 mg/dL (60-115)
[2023-11-27 14:20] LABS: Estimated Average Glucose 131 mg/dL; Hemoglobin A1c % 6.2 % (<6.0)
[2023-11-27 16:14] LABS: Anion Gap 11 (12-20); Blood Urea Nitrogen 23 mg/dL (9-16); Calcium 9.2 mg/dL (8.4-10.2); Carbon Dioxide 24 mmol/L (22-29); Chloride 109 mmol/L (96-108); Creatinine Clr Calc Pharmacy 44.8; Estimated Glomerular Filt Rate 41; Glucose Random 100 mg/dL (60-115); Potassium 5.9 mmol/L (3.3-5.1); Sodium 138 mmol/L (135-145)
--- NOTE | 2023-11-27 16:20 | HO.PM.IMPN ---
Subjective Subjective Date of Service: 11/27/23 Interval History: Hyperkalemia Review of Systems Hypokalemia somewhat improving Denies any chest pain or shortness a breath Physical Exam Vital Signs: Vital Signs: Last Vital Signs Temp 96.9 F 11/27/23 15:39 Pulse 60 11/27/23 15:39 Resp 15 11/27/23 15:39 BP 147/68 H 11/27/23 15:39 Pulse Ox 97 11/27/23 15:39 O2 Del Method Room Air 11/27/23 15:39 BMI result Body Mass Index 24.2 Appearance: Alert.? Oriented X3. cvs: rrr, [id number] , no murmur res: clear to auscultation ,no rhonchii or wheezing abd: no rebound or guarding ,nt, bs present. ext pulses present , no cyanosis . neuro: axo3 , nonfocal. Objective Data Active Medications Acetaminophen (Acetaminophen 325 Mg Tablet) 650 mg PO Q6H PRN PRN Reason: Pain, Mild (Pain Scale 1-3) Aspirin (Aspirin Enteric Coated 81 Mg Tablet.) 81 mg PO DAILY [facility] [place] Last Admin: 11/27/23 10:49 Dose: 81 mg Documented By: JOANNA Atenolol (Atenolol 100 Mg Tablet) 100 mg PO DAILY [facility] [place]; Protocol Last Admin: 11/27/23 07:42 Dose: Not Given Documented By: ANDERSON Non-Admin Reason: Physician Held Med Atorvastatin Calcium (Atorvastatin Calcium 80 Mg Tablet) 80 mg PO BEDTIME [facility] Last Admin: 11/26/23 22:09 Dose: 80 mg Documented By: SHELLY Docusate Sodium (Docusate Sodium 100 Mg Capsule) 100 mg PO BID PRN PRN Reason: constipation Folic Acid (Folic Acid 1 Mg Tablet) 1 mg PO DAILY [facility] [place] Last Admin: 11/27/23 10:50 Dose: 1 mg Documented By: JOANNA Glucose (Glucose Gel 15 Gm Gel..Gram.) 15 gm PO Q15M PRN; Protocol PRN Reason: per Hypoglycemia Standing Ord. Heparin Sodium (Porcine) (Heparin Sodium,Porcine 5,000 Unit/Ml Vial) 5,000 unit SUBCUT Q12H [facility] [place] Last Admin: 11/27/23 10:49 Dose: 5,000 unit Documented By: JOANNA Hydralazine HCl (Hydralazine Hcl 50 Mg Tablet) 100 mg PO TID [facility] [place]; Protocol Last Admin: 11/27/23 07:43 Dose: Not Given Documented By: ANDERSON Non-Admin Reason: Physician Held Med Dextrose (D10) 250 mls @ 750 mls/hr IV Q15M PRN; Protocol PRN Reason: per Hypoglycemia Standing Ord. Insulin Human Lispro (Insulin Lispro 100 Unit/Ml 3 Ml Vial) 0 unit SUBCUT QIDACHS [facility]; Protocol Last Admin: 11/27/23 11:57 Dose: Not Given Documented By: JOANNA Non-Admin Reason: No Insulin Coverage Isosorbide Mononitrate (Isosorbide Mononitrate 60 Mg Tab.Er.24h) 120 mg PO DAILY [facility] [place]; Protocol Last Admin: 11/27/23 10:49 Dose: 120 mg Documented By: JOANNA Levothyroxine Sodium (Levothyroxine Sodium 125 Mcg Tablet) 125 mcg PO DAILY@0600 [facility] [place] Last Admin: 11/27/23 06:31 Dose: 125 mcg Documented By: JESSY Melatonin (Melatonin 3 Mg Tablet) 6 mg PO BEDTIME PRN PRN Reason: insomnia Omeprazole (Omeprazole 20 Mg Capsule.Dr) 20 mg PO DAILY@0600 [facility] [place] Last Admin: 11/27/23 06:31 Dose: 20 mg Documented By: JESSY Ondansetron HCl (Ondansetron Hcl 4 Mg/2 Ml Vial) 4 mg IVPUSH Q8H PRN PRN Reason: Nausea and Vomiting Ranolazine (Ranolazine 500 Mg Tab.Er.12h) 500 mg PO BID [facility] [place] Last Admin: 11/27/23 07:42 Dose: Not Given Documented By: ANDERSON Non-Admin Reason: Physician Held Med Senna (Sennosides 8.6 Mg Tablet) 17.2 mg PO BEDTIME PRN PRN Reason: Constipation Sodium Chloride (0.9 % Sodium Chloride Flush 3 Ml Syringe) 3 ml IVFLUSH QSHIFT [facility] [place] Last Admin: 11/27/23 07:21 Dose: Not Given Documented By: ANDERSON Non-Admin Reason: See Note Tamsulosin HCl (Tamsulosin Hcl 0.4 Mg Capsule) 0.4 mg PO BEDTIME [facility] [place] Last Admin: 11/26/23 22:09 Dose: 0.4 mg Documented By: SHELLY Vitamin D (Cholecalciferol (Vitamin D3) 25 Mcg Tablet) 50 mcg PO DAILY [facility] Last Admin: 11/27/23 10:50 Dose: 50 mcg Documented By: JOANNA Labs 11/26/23 13:41 11/27/23 15:25 Labs: Laboratory Results - last 24 hr 11/26/23 11/26/23 11/26/23 13:41 15:59 18:13 VBG pH VBG pCO2 VBG pO2 VBG HCO3 VBG O2 Saturation VBG Base Excess Anion Gap 13 Estim Creat Clear Calc 35.0 Estimated GFR 31 POC Glucose 67 Random Glucose 120 H Estimat Average Glucose 131 Hemoglobin A1c % 6.2 H Calcium 10.1 Total Creatine Kinase 11/26/23 11/26/23 11/26/23 18:45 19:38 19:40 VBG pH 7.34 VBG pCO2 37 VBG pO2 47 VBG HCO3 20 L VBG O2 Saturation 79.0 VBG Base Excess -4.6 Anion Gap 12 Estim Creat Clear Calc 36.3 Estimated GFR 32 POC Glucose 116 H Random Glucose 121 H Estimat Average Glucose Hemoglobin A1c % Calcium 9.8 Total Creatine Kinase 167 11/27/23 11/27/23 11/27/23 02:20 10:06 10:06 VBG pH VBG pCO2 VBG pO2 VBG HCO3 VBG O2 Saturation VBG Base Excess Anion Gap 14 13 Cancelled Estim Creat Clear Calc 37.0 40.2 Estimated GFR 33 POC Glucose Random Glucose 143 H Estimat Average Glucose Hemoglobin A1c % Calcium 9.5 Total Creatine Kinase 11/27/23 11/27/23 11/27/23 10:06 10:06 10:06 VBG pH VBG pCO2 VBG pO2 VBG HCO3 VBG O2 Saturation VBG Base Excess Anion Gap Estim Creat Clear Calc Cancelled Estimated GFR 36 Cancelled POC Glucose Random Glucose 113 Cancelled Estimat Average Glucose Hemoglobin A1c % Calcium 9.6 Total Creatine Kinase 11/27/23 11/27/23 11/27/23 10:06 11:57 12:56 VBG pH VBG pCO2 VBG pO2 VBG HCO3 VBG O2 Saturation VBG Base Excess Anion Gap 10 L Estim Creat Clear Calc 43.7 Estimated GFR 40 POC Glucose 69 Random Glucose 526 H* Estimat Average Glucose Hemoglobin A1c % Calcium Cancelled 8.0 L D Total Creatine Kinase 11/27/23 11/27/23 13:52 15:25 VBG pH VBG pCO2 VBG pO2 VBG HCO3 VBG O2 Saturation VBG Base Excess Anion Gap 11 L Estim Creat Clear Calc 44.8 Estimated GFR 41 POC Glucose 93 Random Glucose 100 Estimat Average Glucose Hemoglobin A1c % Calcium 9.2 D Total Creatine Kinase Assessment and Plan (1) Acute on chronic renal failure: Status: Acute (2) Hyperkalemia: Status: Acute Plan 68 year old male with history of htn, hld, ckd stage 3, CAD, 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 Acute hyperkalemia -In the setting of spironolactone, lisinopril, Bactrim use received coctail regular insulin, D10, albuterol x1, calcium gluconate, and Lokelmax2-on 11/25. Patient potassium is still trending up fluctuating between 5.2-5.9 range -hold lisinopril, spironolactone, Bactrim -EKG without significant T-wave abnormality Will give another dose of Lokelma-monitor BMP. -monitor on telemetry acute kidney injury-related to above Patient received hydration for MT and bicarb drip for low bicarb: Bicarb improved, MT also improving CAD/HLD -no chest pain, EKG without acute ischemic changes -continue ASA, beta-italo, statin hypertension -hold lisinopril, spironolactone in setting of above. Continue metoprolol -monitor blood pressures [id number] type 2 diabetes with hyperglycemia Monitor fingerstick with sliding scale adjusted. -hold metformin -POC glucose, diabetic diet diabetic polyneuropathy on gabapentin unspecified: Infection? Per patient -obtain records from [facility]. Hold Bactrim. Consider alternative abx if indicated DVT prophylaxis- heparin Full code Ongoing hospitalization stay: management of refractory hyperkalemia requiring serial monitoring of renal fx/lytes, cardiac monitoring, and elecrolyte reversal with expert consulation Quality Stroke Does the patient have a stroke diagnosis?: No VTE Prior VTE?: No VTE Risk Level:: Medical - moderate - high VTE Device Contraindication: Treatment Not Indicated VTE Drug Contraindication: N/A - Med Ordered
[2023-11-27] MEDS: 0.9 % Sodium Chloride Flush 3 ML SYRINGE IVFLUSH ×2 (16:29→20:48)
[2023-11-27 16:32] LABS: Glucose, Whole Blood 118 mg/dL (60-115)
[2023-11-27 19:55] LABS: Anion Gap 14 (12-20); Blood Urea Nitrogen 23 mg/dL (9-16); Calcium 9.5 mg/dL (8.4-10.2); Carbon Dioxide 21 mmol/L (22-29); Chloride 109 mmol/L (96-108); Estimated Glomerular Filt Rate 43; Glucose Random 105 mg/dL (60-115); Potassium 5.5 mmol/L (3.3-5.1); Sodium 138 mmol/L (135-145)
--- NOTE | 2023-11-27 20:09 | P.CONNP_ITS ---
History of Present Illness Reason for Consult Consult date: 11/27/23 Reason for consult: MT/ Hyperkalemia Chief Complaint Chief complaint: hyperkalemia, mt History of Present Illness Narrative: 68 year old male with history of htn, ckd stage 3, CAD, non insulin dependent type 2 diabetes presented to the ER from urgent care clinic for evaluation of ble weakness and tingling ongoing for 5 days. He has been taking bactrim prescribed by pcp for an unspecified infection of the colon (?) per patient started on 11/19 x 10 days last taken yesterday morning. He is taking this along with lisinopril 40mg and spironolactone 25mg daily. He denies fevers, chills, abd pain/v/d, urinary symptoms, cough, sob, lighteadheadedness, palpitations, sob, chest pain. On arrival VSS. Initial K at this morning 7.1 and transferred to ED for further eval. On arrival, creat 2.09, baseline 1.35, BUN 32. K increased to 7.9, lytes otherwise unremarkable. No acidosis. Given 5 units regular insulin, d10, albuterol, calcium gluconate, and lokelma. K improved to 6.7, creat increased to 2.15. He was admitted for further management. Nephrology has been consulted to assist in his clinical care during his current hospital stay Review of Systems Review of Systems Yes all other systems are reviewed and are negative [facility] Past Medical History Medical History Acquired hypothyroidism Dyslipidemia NSVT (nonsustained ventricular tachycardia) Atherosclerotic cardiovascular disease Coronary artery arteriosclerosis Essential hypertension Type 2 diabetes mellitus with diabetic polyneuropathy Family History Family History Father No problems noted. Mother No problems noted. Surgical History Surgical History History of colon resection Hx of colonoscopy History of cardiac catheterization Social History Social History Household Members: None Housing: Condominium Do you presently have visiting nurse or other home services: No Alcohol intake: current Alcohol intake frequency: holidays/special occasions only Patient Tobacco Use Status: Never used Tobacco Smoked in Last 30 Days: No Second Hand Smoke Exposure: No Use of substances other than those prescribed or required for medical reasons: No Currently Displaying Signs/Symptoms of Drug Intoxication Withdrawal: No Have you been hit, kicked, punched, or otherwise hurt by someone within the past year? If so, by whom?: No Do you feel safe in your current relationship?: No Current Relationship Is there a partner from a previous relationship who is making you feel unsafe now?: No Are you made to feel afraid or neglected: No [employer] Healthcare Practices: Congregational Advance Directives: Yes Advance Directives on File: Yes Advance Directives Date on File: 10/03/20 Do you have a plan to hurt others: No Plan Recently lost weight without trying: Yes How much weight loss: 2-13 pounds Eating poorly because of decreased appetite: No Nutrition screen score: 3 Nutrition Risks: No Nutritional Risk Poor oral hygiene: No service: No Meds Allergies Allergy/AdvReac Type Severity Reaction Status Date / Time amlodipine AdvReac Unknown leg edema Verified 11/26/23 12:39 Active Medications: Current Medications Acetaminophen (Acetaminophen 325 Mg Tablet) 650 mg PO Q6H PRN PRN Reason: Pain, Mild (Pain Scale 1-3) Aspirin (Aspirin Enteric Coated 81 Mg Tablet.Dr) 81 mg PO DAILY [facility] Last Admin: 11/27/23 10:49 Dose: 81 mg Atenolol (Atenolol 100 Mg Tablet) 100 mg PO DAILY [facility]; Protocol Last Admin: 11/27/23 07:42 Dose: Not Given Atorvastatin Calcium (Atorvastatin Calcium 80 Mg Tablet) 80 mg PO BEDTIME [facility] Last Admin: 11/26/23 22:09 Dose: 80 mg Docusate Sodium (Docusate Sodium 100 Mg Capsule) 100 mg PO BID PRN PRN Reason: constipation Folic Acid (Folic Acid 1 Mg Tablet) 1 mg PO DAILY [facility] Last Admin: 11/27/23 10:50 Dose: 1 mg Glucose (Glucose Gel 15 Gm Gel..Gram.) 15 gm PO Q15M PRN; Protocol PRN Reason: per Hypoglycemia Standing Ord. Heparin Sodium (Porcine) (Heparin Sodium,Porcine 5,000 Unit/Ml Vial) 5,000 unit SUBCUT Q12H [facility] Last Admin: 11/27/23 10:49 Dose: 5,000 unit Hydralazine HCl (Hydralazine Hcl 50 Mg Tablet) 100 mg PO TID [facility]; Protocol Last Admin: 11/27/23 07:43 Dose: Not Given Dextrose (D10) 250 mls @ 750 mls/hr IV Q15M PRN; Protocol PRN Reason: per Hypoglycemia Standing Ord. Insulin Human Lispro (Insulin Lispro 100 Unit/Ml 3 Ml Vial) 0 unit SUBCUT QIDACHS [facility]; Protocol Last Admin: 11/27/23 16:25 Dose: Not Given Isosorbide Mononitrate (Isosorbide Mononitrate 60 Mg Tab.Er.24h) 120 mg PO DAILY [facility]; Protocol Last Admin: 11/27/23 10:49 Dose: 120 mg Levothyroxine Sodium (Levothyroxine Sodium 125 Mcg Tablet) 125 mcg PO DAILY@0600 [facility] Last Admin: 11/27/23 06:31 Dose: 125 mcg Melatonin (Melatonin 3 Mg Tablet) 6 mg PO BEDTIME PRN PRN Reason: insomnia Omeprazole (Omeprazole 20 Mg Capsule.) 20 mg PO DAILY@0600 [facility] Last Admin: 11/27/23 06:31 Dose: 20 mg Ondansetron HCl (Ondansetron Hcl 4 Mg/2 Ml Vial) 4 mg IVPUSH Q8H PRN PRN Reason: Nausea and Vomiting Ranolazine (Ranolazine 500 Mg Tab.Er.12h) 500 mg PO BID [facility] Last Admin: 11/27/23 07:42 Dose: Not Given Senna (Sennosides 8.6 Mg Tablet) 17.2 mg PO BEDTIME PRN PRN Reason: Constipation Sodium Chloride (0.9 % Sodium Chloride Flush 3 Ml Syringe) 3 ml IVFLUSH QSHIFT [facility] Last Admin: 11/27/23 16:29 Dose: 3 ml Tamsulosin HCl (Tamsulosin Hcl 0.4 Mg Capsule) 0.4 mg PO BEDTIME [facility] Last Admin: 11/26/23 22:09 Dose: 0.4 mg Vitamin D (Cholecalciferol (Vitamin D3) 25 Mcg Tablet) 50 mcg PO DAILY [facility] Last Admin: 11/27/23 10:50 Dose: 50 mcg Home Medications ?Medication ?Instructions ?Recorded ?Confirmed ?Last Taken ?Type acetaminophen 650 mg 650 mg PO Q8H PRN mild pain 10/01/23 11/26/23 Unknown History tablet,extended release docusate sodium 100 mg capsule 100 mg PO BID PRN constipation 10/01/23 11/26/23 Unknown History gabapentin 300 mg capsule 300 mg PO BID@0900,1800 10/01/23 11/26/23 Unknown History gabapentin 300 mg capsule 600 mg PO BEDTIME 10/01/23 11/26/23 Unknown History melatonin 3 mg tablet 6 mg PO BEDTIME PRN insomnia 10/01/23 11/26/23 Unknown History tamsulosin 0.4 mg capsule 0.4 mg PO QPM 10/01/23 11/26/23 Unknown History sulfamethoxazole 800 1 tab PO BID 11/26/23 11/26/23 Unknown History mg-trimethoprim 160 mg tablet Physical Exam Vital Signs: Last Vital Signs Temp 97.2 F 11/27/23 19:51 Pulse 58 11/27/23 19:51 Resp 18 11/27/23 19:51 BP 152/75 H 11/27/23 19:51 Pulse Ox 95 11/27/23 19:51 O2 Del Method Room Air 11/27/23 19:51 BMI result Body Mass Index 24.2 Const General: comfortable and no acute distress Orientation/consciousness: patient oriented x3 HEENT Head: Yes normocephalic Mouth: Normal oral and palatal mucosa present Eyes EOM: EOMs intact bilaterally Neck Neck: Yes supple Resp Auscultation: clear to auscultation bilaterally Cardio Jugular venous distension: no JVD Rate: regular rate GI Palpation (GI): Soft to palpation Auscultation: normal bowel sounds General: Yes no CVA tenderness Back/Spine/Pelvis Back: no CVA tenderness Skin General skin exam: no rashes or lesions noted Neuro General: patient oriented x3 and moves all extremities Extrem General: Yes no pedal edema Results Lab Results 11/26/23 13:41 11/27/23 19:27 Lab results: Chemistry 11/26/23 11/26/23 11/26/23 13:41 15:59 19:38 Sodium 136 135 135 Potassium 7.9 H* 6.7 H* 6.0 H* Carbon Dioxide 23 20 L 19 L BUN 32 H 33 H 31 H Creatinine 2.09 H 2.15 H 2.07 H Calcium 9.8 10.1 9.8 11/27/23 11/27/23 11/27/23 02:20 10:06 10:06 Sodium 136 136 Cancelled Potassium 6.4 H* 5.9 H Carbon Dioxide 16 L BUN 27 H Creatinine 2.03 H Calcium 9.5 11/27/23 11/27/23 11/27/23 10:06 10:06 10:06 Sodium Potassium Cancelled Carbon Dioxide 17 L Cancelled BUN 25 H Cancelled Creatinine 1.87 H Calcium 11/27/23 11/27/23 11/27/23 10:06 10:06 12:56 Sodium 138 Potassium 5.2 H Carbon Dioxide 35 H BUN 21 H Creatinine Cancelled 1.72 H Calcium 9.6 Cancelled 8.0 L D 11/27/23 11/27/23 15:25 19:27 Sodium 138 138 Potassium 5.9 H 5.5 H Carbon Dioxide 24 21 L BUN 23 H 23 H Creatinine 1.68 H 1.60 H Calcium 9.2 D 9.5 Hematology 11/26/23 13:41 WBC 4.0 L Hgb 12.1 L Plt Count 165 Assessment and Plan (1) Acute on chronic renal failure: Qualifiers: Acute renal failure type: with acute tubular necrosis Chronic kidney disease stage: stage 3 (moderate) Chronic kidney disease stage 3 subtype: stage 3a (GFR 45-59) Qualified Code(s): N17.0 - Acute kidney failure with tubular necrosis; N18.31 - Chronic kidney disease, stage 3a Status: Acute (2) Hyperkalemia: Status: Acute Plan Hyperkalemia in the setting of spironolactone, lisinopril, Bactrim K --> 7.1 --> 7.9 --> 6.7 - now 5.5 after regular insulin, D10, albuterol x1, calcium gluconate, and Lokelma Continue to hold lisinopril, spironolactone, Bactrim MT due to tubular injury; No reason to suspect GN/AIN No indication for renal replacement; C/W current supportive care for now DO NOT USE ACEI & SPIRONOLACTONE combination in this patient Avoid Bactrim in this patient. Was given NaHCO3; Labs AM Shall restart ACEI by nephrology MD during office F/U after hospital D/C Procedures Date of Service Date of Service: 11/27/23
[2023-11-27 20:43] LABS: Glucose, Whole Blood 94 mg/dL (60-115)
[2023-11-27] MEDS: Atorvastatin Calcium 80 MG TABLET PO (20:45)
[2023-11-27] MEDS: Tamsulosin HCL 0.4 MG CAPSULE PO (20:45)
[2023-11-27] MEDS: Melatonin 3 MG TABLET 6 MG PO (20:45)
[2023-11-28 03:27] VITALS: BP 126/63; PULSE 55; RESP 18; TEMP 36.1; O2SAT 98
[2023-11-28] MEDS: Omeprazole 20 MG CAPSULE.DR PO (06:04)
[2023-11-28] MEDS: Levothyroxine Sodium 125 MCG TABLET PO (06:04)
[2023-11-28 07:17] LABS: Glucose, Whole Blood 93 mg/dL (60-115)
[2023-11-28 07:29] VITALS: BP 153/70; PULSE 54; RESP 20; TEMP 36.2; O2SAT 96
[2023-11-28] MEDS: Aspirin Enteric Coated 81 MG TABLET.DR PO (08:57)
[2023-11-28] MEDS: 0.9 % Sodium Chloride Flush 3 ML SYRINGE IVFLUSH ×3 (08:57→20:52)
[2023-11-28] MEDS: Isosorbide Mononitrate 60 MG TAB.ER.24H 120 MG PO (08:57)
[2023-11-28] MEDS: Cholecalciferol (Vitamin D3) 25 MCG TABLET 50 MCG PO (08:57)
[2023-11-28] MEDS: atenoloL 100 MG TABLET PO (08:57)
[2023-11-28] MEDS: Folic Acid 1 MG TABLET PO (08:57)
[2023-11-28] MEDS: Heparin Sodium,Porcine 5,000 UNIT/ML VIAL 5000 UNIT SUBCUT ×2 (08:57→20:54)
[2023-11-28 09:59] LABS: Anion Gap 13 (12-20); Blood Urea Nitrogen 19 mg/dL (9-16); Calcium 10.2 mg/dL (8.4-10.2); Carbon Dioxide 23 mmol/L (22-29); Chloride 107 mmol/L (96-108); Creatinine Clr Calc Pharmacy 45.6; Estimated Glomerular Filt Rate 42; Glucose Random 133 mg/dL (60-115); Potassium 5.2 mmol/L (3.3-5.1); Sodium 138 mmol/L (135-145)
[2023-11-28 11:23] LABS: Glucose, Whole Blood 113 mg/dL (60-115)
[2023-11-28 11:27] VITALS: BP 161/75; PULSE 51; RESP 20; TEMP 36.1; O2SAT 98
--- NOTE | 2023-11-28 13:24 | P.PNNP_ITS ---
Subjective Subjective Date of Service: 11/28/23 Interval history: Events noted Feels better Physical Exam 2 Vital Signs: Vital Signs: Last Vital Signs Temp 97.0 F 11/28/23 11:27 Pulse 51 11/28/23 11:27 Resp 20 11/28/23 11:27 BP 161/75 H 11/28/23 11:27 Pulse Ox 98 11/28/23 11:27 O2 Del Method Room Air 11/28/23 11:27 BMI result Body Mass Index 24.2 Const: General: comfortable and no acute distress O rientation/consciousness: patient oriented x3 HEENT: Head: Yes normocephalic Mouth: Normal oral and palatal mucosa present Eyes: EOM: EOMs intact bilaterally Neck: Neck: Yes supple Resp: Auscultation: clear to auscultation bilaterally Cardio: Jugular venous distension: no JVD Rate: regular rate GI: Palpation (GI): Soft to palpation Auscultation: normal bowel sounds : General: Yes no CVA tenderness Back/Spine/Pelvis: Back: no CVA tenderness Skin: General skin exam: no rashes or lesions noted Neuro: General: patient oriented x3 and moves all extremities Extrem: General: Yes no pedal edema Objective Data Labs 11/26/23 13:41 11/28/23 08:27 Labs: Laboratory Results - last 24 hr 11/26/23 11/27/23 11/27/23 13:41 12:56 13:52 Hold Purple Top Sodium 138 Potassium 5.2 H Chloride 98 Carbon Dioxide 35 H Anion Gap BUN 21 H Creatinine 1.72 H Estim Creat Clear Calc 43.7 Estimated GFR 40 POC Glucose 93 Random Glucose 526 H* Estimat Average Glucose 131 Hemoglobin A1c % 6.2 H Calcium 8.0 L D 11/27/23 11/27/23 11/27/23 15:25 16:24 19:27 Hold Purple Top Sodium 138 138 Potassium 5.9 H 5.5 H Chloride 109 H 109 H Carbon Dioxide 24 21 L Anion Gap 11 L 14 BUN 23 H 23 H Creatinine 1.68 H 1.60 H Estim Creat Clear Calc 44.8 47.0 Estimated GFR 41 43 POC Glucose 118 H Random Glucose 100 105 Estimat Average Glucose Hemoglobin A1c % Calcium 9.2 D 9.5 11/27/23 11/28/23 11/28/23 20:30 07:13 08:27 Hold Purple Top SEE NOTE Sodium 138 Potassium 5.2 H Chloride 107 Carbon Dioxide 23 Anion Gap 13 BUN 19 H Creatinine 1.65 H Estim Creat Clear Calc 45.6 Estimated GFR 42 POC Glucose 94 93 Random Glucose 133 H Estimat Average Glucose Hemoglobin A1c % Calcium 10.2 D 11/28/23 11:19 Hold Purple Top Sodium Potassium Chloride Carbon Dioxide Anion Gap BUN Creatinine Estim Creat Clear Calc Estimated GFR POC Glucose 113 Random Glucose Estimat Average Glucose Hemoglobin A1c % Calcium Procedures Date of Service Date of Service: 11/28/23 Assessment & Plan Assessment and plan (1) Acute on chronic renal failure: Status: Acute (2) Hyperkalemia: Status: Acute Plan Hyperkalemia in the setting of spironolactone, lisinopril, Bactrim K --> 7.1 --> 7.9 --> 6.7 - now 5.2 Continue to hold lisinopril, spironolactone, Bactrim MT due to tubular injury; No reason to suspect GN/AIN No indication for renal replacement; C/W current supportive care for now DO NOT USE ACEI & SPIRONOLACTONE combination in this patient Avoid Bactrim in this patient. No need for further NaHCO3; OK to D C home from a renal standpoint Shall restart ACEI by nephrology MD during office F/U after hospital D/C Time Spent With Patient Time: Total time managing care of this patient today ____ minutes. Progress Note: Quality Stroke Does the patient have a stroke diagnosis?: No
[2023-11-28] MEDS: Acetaminophen 325 MG TABLET 650 MG PO (14:19)
[2023-11-28] MEDS: Amoxicillin/Potassium Clav 500 MG TABLET PO (14:19)
--- NOTE | 2023-11-28 15:23 | HO.PM.IMPN ---
Subjective Subjective Date of Service: 11/28/23 Interval History: Hyperkalemia Review of Systems Hypokalemia improving Denies any chest pain or shortness a breath Physical Exam Vital Signs: Vital Signs: Last Vital Signs Temp 97.0 F 11/28/23 11:27 Pulse 51 11/28/23 11:27 Resp 20 11/28/23 11:27 BP 161/75 H 11/28/23 11:27 Pulse Ox 98 11/28/23 11:27 O2 Del Method Room Air 11/28/23 11:27 BMI result Body Mass Index 24.2 Appearance: Alert.? Oriented X3. cvs: rrr, [id number] , no murmur res: clear to auscultation ,no rhonchii or wheezing abd: no rebound or guarding ,nt, bs present. ext pulses present , no cyanosis . neuro: axo3 , nonfocal. Objective Data Active Medications Acetaminophen (Acetaminophen 325 Mg Tablet) 650 mg PO Q6H PRN PRN Reason: Pain, Mild (Pain Scale 1-3) Last Admin: 11/28/23 14:19 Dose: 650 mg Documented By: JOANNA Amoxicillin/Clavulanate Potassium (Amoxicillin/Potassium Clav 500 Mg Tablet) 500 mg PO Q12H [facility] Last Admin: 11/28/23 14:19 Dose: 500 mg Documented By: JOANNA Aspirin (Aspirin Enteric Coated 81 Mg Tablet.) 81 mg PO DAILY [facility] Last Admin: 11/28/23 08:57 Dose: 81 mg Documented By: JOANNA Atenolol (Atenolol 100 Mg Tablet) 100 mg PO DAILY [facility]; Protocol Last Admin: 11/28/23 08:57 Dose: 100 mg Documented By: JOANNA Atorvastatin Calcium (Atorvastatin Calcium 80 Mg Tablet) 80 mg PO BEDTIME [facility] Last Admin: 11/27/23 20:45 Dose: 80 mg Documented By: XAVIER Docusate Sodium (Docusate Sodium 100 Mg Capsule) 100 mg PO BID PRN PRN Reason: constipation Folic Acid (Folic Acid 1 Mg Tablet) 1 mg PO DAILY [facility] Last Admin: 11/28/23 08:57 Dose: 1 mg Documented By: JOANNA Glucose (Glucose Gel 15 Gm Gel..Gram.) 15 gm PO Q15M PRN; Protocol PRN Reason: per Hypoglycemia Standing Ord. Heparin Sodium (Porcine) (Heparin Sodium,Porcine 5,000 Unit/Ml Vial) 5,000 unit SUBCUT Q12H [facility] Last Admin: 11/28/23 08:57 Dose: 5,000 unit Documented By: JOANNA Hydralazine HCl (Hydralazine Hcl 50 Mg Tablet) 100 mg PO TID [facility]; Protocol Last Admin: 11/27/23 07:43 Dose: Not Given Documented By: ANDERSON Non-Admin Reason: Physician Held Med Dextrose (D10) 250 mls @ 750 mls/hr IV Q15M PRN; Protocol PRN Reason: per Hypoglycemia Standing Ord. Insulin Human Lispro (Insulin Lispro 100 Unit/Ml 3 Ml Vial) 0 unit SUBCUT QIDACHS [facility]; Protocol Last Admin: 11/28/23 12:11 Dose: Not Given Documented By: JOANNA Non-Admin Reason: No Insulin Coverage Isosorbide Mononitrate (Isosorbide Mononitrate 60 Mg Tab.Er.24h) 120 mg PO DAILY [facility]; Protocol Last Admin: 11/28/23 08:57 Dose: 120 mg Documented By: JOANNA Levothyroxine Sodium (Levothyroxine Sodium 125 Mcg Tablet) 125 mcg PO DAILY@0600 [facility] Last Admin: 11/28/23 06:04 Dose: 125 mcg Documented By: XAVIER Melatonin (Melatonin 3 Mg Tablet) 6 mg PO BEDTIME PRN PRN Reason: insomnia Last Admin: 11/27/23 20:45 Dose: 6 mg Documented By: XAVIER Omeprazole (Omeprazole 20 Mg Capsule.Dr) 20 mg PO DAILY@0600 [facility] Last Admin: 11/28/23 06:04 Dose: 20 mg Documented By: XAVIER Ondansetron HCl (Ondansetron Hcl 4 Mg/2 Ml Vial) 4 mg IVPUSH Q8H PRN PRN Reason: Nausea and Vomiting Ranolazine (Ranolazine 500 Mg Tab.Er.12h) 500 mg PO BID [facility] Last Admin: 11/27/23 07:42 Dose: Not Given Documented By: ANDERSON Non-Admin Reason: Physician Held Med Senna (Sennosides 8.6 Mg Tablet) 17.2 mg PO BEDTIME PRN PRN Reason: Constipation Sodium Chloride (0.9 % Sodium Chloride Flush 3 Ml Syringe) 3 ml IVFLUSH QSHIFT [facility] Last Admin: 11/28/23 08:57 Dose: 3 ml Documented By: JOANNA Tamsulosin HCl (Tamsulosin Hcl 0.4 Mg Capsule) 0.4 mg PO BEDTIME [facility] Last Admin: 11/27/23 20:45 Dose: 0.4 mg Documented By: XAVIER Vitamin D (Cholecalciferol (Vitamin D3) 25 Mcg Tablet) 50 mcg PO DAILY [facility] Last Admin: 11/28/23 08:57 Dose: 50 mcg Documented By: JOANNA Labs 11/26/23 13:41 11/28/23 08:27 Labs: Laboratory Results - last 24 hr 11/27/23 11/27/23 11/27/23 15:25 16:24 19:27 Hold Purple Top Anion Gap 11 L 14 Estim Creat Clear Calc 44.8 47.0 Estimated GFR 41 43 POC Glucose 118 H Random Glucose 100 105 Calcium 9.2 D 9.5 11/27/23 11/28/23 11/28/23 20:30 07:13 08:27 Hold Purple Top SEE NOTE Anion Gap 13 Estim Creat Clear Calc 45.6 Estimated GFR 42 POC Glucose 94 93 Random Glucose 133 H Calcium 10.2 D 11/28/23 11:19 Hold Purple Top Anion Gap Estim Creat Clear Calc Estimated GFR POC Glucose 113 Random Glucose Calcium Assessment and Plan (1) Left buttock abscess: Status: Acute (2) Acute on chronic renal failure: Status: Acute (3) Hyperkalemia: Status: Acute Plan 68 year old male with history of htn, hld, ckd stage 3, CAD, 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 Acute hyperkalemia -In the setting of spironolactone, lisinopril, Bactrim use hold lisinopril, spironolactone, Bactrim hyperkalemia responded to insulin/dextrose /albuterol/lokelma imrpoving ,moniter closely acute kidney injury-related to above Patient received hydration for MT and bicarb drip for low bicarb: Bicarb improved, MT also improving CAD/HLD -no chest pain, EKG without acute ischemic changes -continue ASA, beta-italo, statin hypertension -hold lisinopril, spironolactone in setting of above. Continue metoprolol -monitor blood pressures [id number] type 2 diabetes with hyperglycemia Monitor fingerstick with sliding scale adjusted. -hold metformin -POC glucose, diabetic diet diabetic polyneuropathy on gabapentin ? buttock abcess no visible area drainging ,skin seems healed switched to po augmentin DVT prophylaxis- heparin Full code Ongoing hospitalization stay: management of refractory hyperkalemia requiring serial monitoring of renal fx/lytes, cardiac monitoring, and elecrolyte reversal with expert consulation Quality Stroke Does the patient have a stroke diagnosis?: No VTE Prior VTE?: No VTE Risk Level:: Medical - moderate - high VTE Device Contraindication: Treatment Not Indicated VTE Drug Contraindication: N/A - Med Ordered
[2023-11-28 15:28] VITALS: BP 146/78; PULSE 50; RESP 20; TEMP 36.3; O2SAT 95
[2023-11-28 16:10] LABS: Glucose, Whole Blood 110 mg/dL (60-115)
[2023-11-28 19:38] VITALS: BP 123/63; PULSE 56; RESP 18; TEMP 36.6; O2SAT 95
[2023-11-28] MEDS: Atorvastatin Calcium 80 MG TABLET PO (20:52)
[2023-11-28] MEDS: Tamsulosin HCL 0.4 MG CAPSULE PO (20:52)
[2023-11-28] MEDS: Melatonin 3 MG TABLET 6 MG PO (20:52)
[2023-11-28 20:58] LABS: Glucose, Whole Blood 114 mg/dL (60-115)
[2023-11-29 03:07] VITALS: BP 120/66; PULSE 56; RESP 18; TEMP 36.5; O2SAT 95
[2023-11-29] MEDS: Amoxicillin/Potassium Clav 500 MG TABLET PO (06:11)
[2023-11-29] MEDS: Levothyroxine Sodium 125 MCG TABLET PO (06:11)
[2023-11-29] MEDS: Omeprazole 20 MG CAPSULE.DR PO (06:12)
[2023-11-29 07:44] VITALS: BP 147/74; PULSE 48; RESP 20; TEMP 36.6; O2SAT 97
[2023-11-29 07:58] LABS: Glucose, Whole Blood 107 mg/dL (60-115)
[2023-11-29 08:16] VITALS: BP 147/74
[2023-11-29] MEDS: Cholecalciferol (Vitamin D3) 25 MCG TABLET 50 MCG PO (08:16)
[2023-11-29] MEDS: Isosorbide Mononitrate 60 MG TAB.ER.24H 120 MG PO (08:16)
[2023-11-29] MEDS: Heparin Sodium,Porcine 5,000 UNIT/ML VIAL 5000 UNIT SUBCUT (08:17)
[2023-11-29] MEDS: Aspirin Enteric Coated 81 MG TABLET.DR PO (08:17)
[2023-11-29] MEDS: atenoloL 100 MG TABLET PO (08:17)
[2023-11-29] MEDS: Folic Acid 1 MG TABLET PO (08:18)
[2023-11-29] MEDS: 0.9 % Sodium Chloride Flush 3 ML SYRINGE IVFLUSH (08:18)
[2023-11-29] MEDS: hydrALAZINE HCl 25 MG TABLET PO (08:48)
[2023-11-29 09:27] LABS: Anion Gap 14 (12-20); Blood Urea Nitrogen 17 mg/dL (9-16); Calcium 10.6 mg/dL (8.4-10.2); Carbon Dioxide 24 mmol/L (22-29); Chloride 104 mmol/L (96-108); Creatinine Clr Calc Pharmacy 47.6; Estimated Glomerular Filt Rate 44; Glucose Random 179 mg/dL (60-115); Potassium 4.8 mmol/L (3.3-5.1); Sodium 137 mmol/L (135-145)
[2023-11-29 11:13] VITALS: BP 134/66; PULSE 48; RESP 20; TEMP 36.3; O2SAT 97
[2023-11-29 11:21] LABS: Glucose, Whole Blood 146 mg/dL (60-115)
--- NOTE | 2023-11-29 12:12 | P.F2F_ITS ---
Service Date Service Date: 11/29/23 Encounter Date of encounter: 11/29/23 Encounter: hyperkalemia ,trinity,generlaised weak Reasons for Services Signs and symptoms assessed: new symptoms Reason for [facility] [facility]: CV/CP assess and/or care, medication management, medication treatment and teach disease management MD Overseeing Care: Bobbi Ricks Homebound: Leaving the home is medically contraindicated at this time without the asist of a device and/or another person due th the listed conditions above and below. Reason homebound: weakness related to hospital stay Homebound supporting statement: Patient is generalized weak post hospitalization stay has multiple comorbidities including hyperkalemia, TRINITY, hypertension with fluctuating BP: Patient will benefit from VNA-for help with the appointments, BP monitoring , medication and disease management , and labs draws. Certification: Based on the above findings, I certify that this patient is confined to the home and needs intermittent [facility] care, physical therapy and/or speech therapy, or continues to need occupational therapy. The patient is under my care, and I have initiated the establishment of the plan of care. The patient will be followed by a physician who will periodically review the plan of care. Time Spent With Patient Time: Total time managing care of this patient today ____ minutes.
--- NOTE | 2023-11-29 12:28 | MHC.CM.PN ---
Addendum entered by Inge Valdez RN 11/29/23 15:33: [facility] TO PROVIDE SN FOR PT. Original Note: PT MEDICALLY CLEARED FOR DC HOME W/NEW VNA FOR SN AND NEW CANE, PT WILL TAKE [facility] SHUTTLE AT 1PM
--- NOTE | 2023-11-29 15:45 | P.DS_ITS ---
DS: Providers Provider Date of Service: 11/29/23 Date of admission: 11/26/23 20:58 Date of discharge: 11/29/23 Primary care physician: Bobbi Ricks NP Consults: 11/26/23 20:58 Consult to Nephrology Routine Consulting Provider: [facility] Reason for consultation: mt hyperkalemia Attending physician on discharge: Torrie Almaraz Discharging clinician: Torrie Almaraz DS: Diagnosis Discharge Diagnosis (1) Left buttock abscess: Status: Acute (2) Acute on chronic renal failure: Status: Acute (3) Hyperkalemia: Status: Acute DS: Summary Hospital Course Hospital Course: 68 year old male with history of htn, hld, ckd stage 3, CAD, 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 He states that he has been taking bactrim prescribed by pcp for an unspecified infection of the colon (?) per patient started on 11/19 x 10 days last taken this morning. He is taking this along with lisinopril 40mg and spironolactone 25mg daily. He denies fevers, chills, abd pain/v/d, urinary symptoms, cough, sob, lighteadheadedness, palpitations, sob, chest pain. On arrival VSS. Hematology studies baseline. Initial K at this morning 7.1 and transferred to ED for further eval. On arrival, creat 2.09, baseline 1.35, BUN 32. K increased to 7.9, lytes otherwise unremarkable. No acidosis. Given 5 units regular insulin, d10, albuterol, calcium gluconate, and lokelma. K improved to 6.7, creat increased to 2.15. He has been eating and drinking well until this morning when he developed anorexia, nausea. ED discussed case with nephrology recommending admission to floor. Given addl 5 units regular insulin, d10, albuterol and will recheck BMP now. Hospital course: Patient was admitted for hyperkalemia ,low bicarb possibly related to lisinopril, spironolactone, Bactrim: Patient is off these medications,given iv hydration and bicarb drip briefly, received insulin/dextrose/albuterol, also multiple Lokelma doses. hyperkalemia seems improved. Patient is to follow-up BMP out patiently with Nephrology and PCP and further management outpatient. Hypertension blood pressure is fluctuating: Continue atenolol,hydralazine adjusted to 25 mg t.i.d. MT is also improving with holding above medications-monitor renal function and electrolytes as above. Patient was on Bactrim due to his buttock abscess as per his PCP but we examined there is no skin lesion currently seems like the episodes resolved. Will stop antibiotic. Patient received almost 8 days of antibiotic already. plan: hold lisinopril, spironolactone-bp is acceptableand flactuating : Continue home atenolol, hydralazine adjusted to 25 mg t.i.d. MT/hyperkalemia: Hyperkalemia resolved, MT Improving, monitor BMP out patiently and follow-up with Nephrology. Above management discussed with the patient in detail length she understand and in agreement with the above plan, time spent 40 minutes and 50% time spent on counseling. Time Attestation Total time managing care of this patient today: 40 mintues. Discharge Coordination Time (in mins): 40 min Quality: Safe Use of Opioids Does Pt have an Active Cancer Diagnosis on the Problem List?: No Quality: Stroke Does the patient have a stroke diagnosis?: No Physical Exam Vital Signs: Vital Signs: Last Vital Signs Temp 97.4 F 11/29/23 11:13 Pulse 48 L 11/29/23 11:13 Resp 20 11/29/23 11:13 BP 134/66 11/29/23 11:13 Pulse Ox 97 11/29/23 11:13 O2 Del Method Room Air 11/29/23 11:13 BMI result Body Mass Index 24.2 Appearance: Alert.? Oriented X3. cvs: rrr, [id number] , no murmur res: clear to auscultation ,no rhonchii or wheezing abd: no rebound or guarding ,nt, bs present. ext pulses present , no cyanosis . neuro: axo3 , nonfocal. DS: Data Data Completed and Pending Labs on day of discharge: Laboratory Results - last 24 hr 11/28/23 11/28/23 11/29/23 15:52 20:52 07:52 Sodium Potassium Chloride Carbon Dioxide Anion Gap BUN Creatinine Estim Creat Clear Calc Estimated GFR POC Glucose 110 114 107 Random Glucose Calcium 11/29/23 11/29/23 08:32 11:15 Sodium 137 Potassium 4.8 Chloride 104 Carbon Dioxide 24 Anion Gap 14 BUN 17 H Creatinine 1.58 H Estim Creat Clear Calc 47.6 Estimated GFR 44 POC Glucose 146 H Random Glucose 179 H Calcium 10.6 H Discharge Plan Discharge Anticipated Discharge Date/Time: 11/29/23 11:45 Patient Disposition: Home Health Service Discharge Diagnosis: hyperkalemia ,mt, htn Referrals: Frederic Harris MD [Physician] - 1 Week Bobbi Ricks NP [Primary Care Provider] - 1 Week Discharge Medications: New hydralazine 25 mg tablet 25 mg PO TID Qty: 270 0RF Continued (DME) lancets [TRUEplus Lancets] 33 gauge misc See Rx Instructions .ROUTE .MEDSUPPLY Qty: 100 6RF Rx Instructions: 3 times a day levothyroxine 125 mcg tablet 125 mcg PO QAM Qty: 90 1RF Rx Instructions: NEEDS APPOINTMENT FOR MORE REFILLS atorvastatin 80 mg tablet 80 mg PO BEDTIME 30 Days Qty: 30 4RF cholecalciferol (vitamin D3) 50 mcg (2,000 unit) capsule 50 mcg PO QAM Qty: 30 0RF (DME) FreeStyle Lite Strips Strip See Rx Instructions .ROUTE .MEDSUPPLY Qty: 100 6RF Rx Instructions: 3times a day ranolazine 500 mg tablet extended release 12 hr 500 mg PO BID Qty: 180 3RF isosorbide mononitrate 120 mg tablet extended release 24 hr 120 mg PO DAILY Qty: 90 3RF folic acid 1 mg tablet 1 mg PO DAILY 6RF Januvia 100 mg tablet 100 mg PO DAILY 90 Days Qty: 90 3RF aspirin 81 mg tablet,delayed release (DR/EC) 81 mg PO QAM Qty: 90 3RF pantoprazole 40 mg tablet,delayed release (DR/EC) 40 mg PO QAM Qty: 90 3RF melatonin 3 mg tablet 6 mg PO BEDTIME PRN (Reason: insomnia) acetaminophen 650 mg tablet extended release 650 mg PO Q8H PRN (Reason: mild pain) tamsulosin 0.4 mg capsule 0.4 mg PO QPM docusate sodium 100 mg capsule 100 mg PO BID PRN (Reason: constipation) gabapentin 300 mg capsule 600 mg PO BEDTIME gabapentin 300 mg capsule 300 mg PO BID@0900,1800 atenolol 100 mg tablet 100 mg PO DAILY Qty: 90 4RF Discontinued metformin 500 mg tablet 500 mg PO BID Qty: 60 4RF lisinopril 40 mg tablet 40 mg PO QAM Qty: 90 2RF spironolactone 25 mg tablet 25 mg PO QAM Qty: 90 3RF hydralazine 100 mg tablet 100 mg PO TID Qty: 270 3RF sulfamethoxazole-trimethoprim 800-160 mg tablet 1 tab PO BID Discharge Orders: Discharge Order (Routine); Ordered 11/29/23 Ordered By: Torrie Almaraz Diet: Low salt diet Activity on Discharge: As tolerated Stand Alone Forms: Patient Portal Discharge page Print Language: Prydeinig Other Ambulatory Orders: Basic Metabolic Panel (Routine) Timeframe: 1 Week Facility: [facility] - Location: Laboratory Ordered By: Torrie Almaraz Care Plan Goals: Patient was admitted for hyperkalemia possibly related to lisinopril, spironolactone, Bactrim: Patient is off these medications. Patient is to follow-up BMP out patiently with Nephrology and PCP and further management outpatient. Hypertension blood pressure is fluctuating: Continue Tylenol, hydralazine adjusted to 25 mg t.i.d. MT is also improving with holding above medications-monitor renal function and electrolytes as above. Patient was on Bactrim due to his buttock abscess as per his PCP but we examined there is no skin lesion currently seems like the episodes resolved. Will stop antibiotic. Patient received almost 8 days of antibiotic already. Health Concerns: As above Plan of Treatment: As above Assessment: As above Patient Instructions: Low-Sodium Diet (DC) Discharge Date/Time: 11/29/23 12:56
== END 2023-11-29 12:56 | disposition home health service (06) | DRG 640 ==
LOC: HO.ED 15:38 → HO.EDOVER 21:05 → HO.IMC 11-27 07:37
PROVIDERS: Nurse Practitioner Family; Admitting Provider Physician Assistant; Emergency Provider Student in an Organized Health Care Education/Training Program; PCP Nurse Practitioner Primary Care; Visit Provider Internal Medicine
DX: E87.5 Hyperkalemia (principal); N17.0 Acute kidney failure with tubular necrosis; I12.9 Hypertensive chronic kidney disease with stage 1 through stage 4 chronic kidney disease, or unspecified chronic kidney disease; I25.10 Atherosclerotic heart disease of native coronary artery without angina pectoris; E03.9 Hypothyroidism, unspecified; E11.65 Type 2 diabetes mellitus with hyperglycemia; E78.5 Hyperlipidemia, unspecified; E11.42 Type 2 diabetes mellitus with diabetic polyneuropathy; T46.4X5A Adverse effect of angiotensin-converting-enzyme inhibitors, initial encounter; T50.0X5A Adverse effect of mineralocorticoids and their antagonists, initial encounter; T36.8X5A Adverse effect of other systemic antibiotics, initial encounter; E11.22 Type 2 diabetes mellitus with diabetic chronic kidney disease; N18.31 Chronic kidney disease, stage 3a; Z79.82 Long term (current) use of aspirin; Z79.890 Hormone replacement therapy; Z79.899 Other long term (current) drug therapy
CPT/HCPCS: 36415; 80048; 80051; 80053; 81001; 82310; 82550; 82570; 82652; 82803; 82947; 83036; 83883; 83970; 84100; 84156; 84520; 85025; 93005; 94640; 97161; 99285; J0613; J1644

== ENCOUNTER → 2023-11-26 14:37 | Outpatient (BNV) | payer OTHER, SELFPAY | PROVIDERS: Emergency Provider Student in an Organized Health Care Education/Training Program; PCP Nurse Practitioner Primary Care; Visit Provider Internal Medicine | DX: R00.1 Bradycardia, unspecified (principal) | CPT/HCPCS: 93010 ==

== ENCOUNTER → 2023-11-26 20:58 | Outpatient (BNV) | payer OTHER, SELFPAY | PROVIDERS: Admitting Provider Physician Assistant; Emergency Provider Student in an Organized Health Care Education/Training Program; PCP Nurse Practitioner Primary Care; Visit Provider Internal Medicine Nephrology | DX: N17.0 Acute kidney failure with tubular necrosis (principal); N18.31 Chronic kidney disease, stage 3a; E87.5 Hyperkalemia | CPT/HCPCS: 99223; 99232 ==

== ENCOUNTER → 2023-11-26 20:58 | Outpatient (BNV) | payer OTHER, SELFPAY | PROVIDERS: Admitting Provider Physician Assistant; Emergency Provider Student in an Organized Health Care Education/Training Program; PCP Nurse Practitioner Primary Care; Visit Provider Physician Assistant | DX: E87.5 Hyperkalemia (principal); N17.0 Acute kidney failure with tubular necrosis; N18.31 Chronic kidney disease, stage 3a; L02.31 Cutaneous abscess of buttock | CPT/HCPCS: 99223; 99232; 99239; G0180 ==

== ENCOUNTER 2023-12-17 15:30 | Outpatient (AMB) | payer OTHER, SELFPAY ==
[2023-12-17 15:30] VITALS: BP 136/64; PULSE 59; O2SAT 98
--- NOTE | 2023-12-17 15:30 | HO.NEPHOV_ITS ---
Vital Signs 12/17/23 15:30 Weight 175 lb BP 136/64 Blood Pressure Location Rt brachial Position Sitting Pulse 59 Pulse Source Pulse Oximeter Pulse Oximetry (%) 98 Oxygen Delivery Method Room Air Intake Visit Reasons: CKD Ground Wirer Required: Yes Ground Wirer Name: Sandra [id number] Accompanied by: Self / Same As Patient Allergies amlodipine Adverse Reaction (Unknown, Verified 12/17/23 15:32) leg edema HPI Comments Details: 68 Italian-speaking man with type 2 diabetes mellitus on oral hypoglycemic ag ents, hypothyroidism, CAD and dyslipidemia . He was on ACEI & Spironolactone. Denied illicit drug use. His creatinine was found to be 4.71 (it was 1.57 on Feb 2023) with bicarb of 15 but had no hyperkalemia.He was admitted for further management. Bactrim was recently added MT resolved with hydration and after stopping ACEi/Bactrim [facility] Medical History Acquired hypothyroidism Dyslipidemia NSVT (nonsustained ventricular tachycardia) Atherosclerotic cardiovascular disease Coronary artery arteriosclerosis Essential hypertension Type 2 diabetes mellitus with diabetic polyneuropathy Surgical History History of colon resection Hx of colonoscopy History of cardiac catheterization Family History Father No problems noted. Mother No problems noted. Social History Household Members: None Housing: Condominium Do you presently have visiting nurse or other home services: No Alcohol intake: current Alcohol intake frequency: holidays/special occasions only Comment: pt refused camera in room, states unable to sleep with light from equipment Patient Tobacco Use Status: Never used Tobacco Second Hand Smoke Exposure: No Advance Directives Date on File: 10/03/20 service: No Physical Exam Vital Signs: Last Vital Signs Pulse 59 12/17/23 15:30 BP 136/64 12/17/23 15:30 Pulse Ox 98 12/17/23 15:30 Oxygen Delivery Method Room Air 12/17/23 15:30 Const General: comfortable Nutritional Appearance: well nourished Orientation/consciousness: patient oriented x3 HEENT Head: No normal to inspection Mouth: moist mucous membranes Neck Neck: Yes supple and Yes no JVD Resp Auscultation: clear to auscultation bilaterally, no rales and rub present Cardio Jugular venous distension: no JVD Palpation: no palpable S3 and no palpable S4 Heart sounds: no rubs GI Palpation (GI): Soft to palpation and nontender Percussion: No Fluid wave present General: Yes no CVA tenderness Back/Spine/Pelvis Back: no CVA tenderness Skin General skin exam: no rashes or lesions noted Neuro General: patient oriented x3 Extrem General: Yes no pedal edema and No clubbing Results Reviewed Nephrology Results: Hgb 12.4 g/dl (14.0-18.0) L 12/18/23 WBC 4.1 X10*3/uL (4.8-10.8) L 12/18/23 Plt Count 187 X10*3/uL (160-400) 12/18/23 Sodium 140 mmol/L (135-145) 12/18/23 Potassium 4.1 mmol/L (3.3-5.1) 12/18/23 Chloride 107 mmol/L (96-108) 12/18/23 Carbon Dioxide 27 mmol/L (22-29) 12/18/23 BUN 18 mg/dL (9-16) H 12/18/23 Creatinine 1.62 mg/dL (0.5-1.4) H 12/18/23 Calcium 9.4 mg/dL (8.4-10.2) 12/18/23 Phosphorus 3.6 mg/dL (2.7-4.5) 11/26/23 PTH Intact 42.6 pg/mL (8.7-77.1) 11/26/23 Urine Protein Negative mg/dL (Neg-Trace) 11/26/23 Urine Creatinine 118.24 mg/dL 11/26/23 Protein/Creatinin Ratio 0.10 (<0.2) 11/26/23 Assessment & Plan Assessment & Plan (1) Acute on chronic renal failure: Code(s): N17.9 - Acute kidney failure, unspecified; N18.9 - Chronic kidney disease, unspecified Category: Medical Qualifiers: Acute renal failure type: with acute tubular necrosis Chronic kidney disease stage: stage 3 (moderate) Chronic kidney disease stage 3 subtype: stage 3a (GFR 45-59) Qualified Code(s): N17.0 - Acute kidney failure with tubular necrosis; N18.31 - Chronic kidney disease, stage 3a Plan: MT superimposed on CKD due to hypoperfusion Renal function improved with hydration and after stopping ACEi /Bactrim/Aldactone combination BP well controlled Stay on low salt diet Keep I > O ; Encouraged PO fluid intake Avoid combination of ACEi/Spironolactone. Orders: Orders Basic Metabolic Panel Today N17.0 - Acute kidney failure with tubular necrosis, N18.31 - Chronic kidney disease, stage 3a Complete Blood Count Auto Diff Today N17.0 - Acute kidney failure with tubular necrosis, N18.30 - Chronic kidney disease, stage 3 unspecified, N18.31 - Chronic kidney disease, stage 3a Coding Level of Care Code Est Pt Level 4 (63986) Diagnoses Acute renal failure with acute tubular necrosis superimposed on stage 3a chronic kidney disease N17.0; N18.31 Acute renal failure type: with acute tubular necrosis Chronic kidney disease stage: stage 3 (moderate) Chronic kidney disease stage 3 subtype: stage 3a (GFR 45-59)
== END 2023-12-17 15:50 | disposition home or self-care (01) ==
PROVIDERS: PCP Nurse Practitioner Primary Care; Visit Provider Internal Medicine Hypertension Specialist
DX: N17.0 Acute kidney failure with tubular necrosis (principal); N18.31 Chronic kidney disease, stage 3a
CPT/HCPCS: 99214

== ENCOUNTER → 2023-12-17 15:30 | Outpatient (BNVA) | payer OTHER, SELFPAY | PROVIDERS: PCP Nurse Practitioner Primary Care; Visit Provider Internal Medicine Hypertension Specialist | DX: N17.0 Acute kidney failure with tubular necrosis (principal); N18.31 Chronic kidney disease, stage 3a | CPT/HCPCS: 99212 ==

== ENCOUNTER 2023-12-18 10:31 | Outpatient (REF) | payer OTHER, SELFPAY ==
[2023-12-18 10:46] LABS: MANUAL DIFF FLAG NO
[2023-12-18 11:09] LABS: Basophils Percent Auto 0.7 % (0-2); Eosinophils Absolute Auto 0.1 X10*3/uL (0.0-0.4); Eosinophils Percent Auto 3.1 % (0-4); Hematocrit 36.1 % (42.0-52.0); Hemoglobin 12.4 g/dl (14.0-18.0); Imm Gran Abs Auto 0.02 X10*3/uL (0.00-0.03); Imm Gran Pct Auto 0.5 % (0.0-0.4); Lymphocytes Absolute Auto 1.2 X10*3/uL (1.2-4.9); Mean Corpuscular HGB Conc 34.3 g/dl (31.0-36.0); Mean Corpuscular Hemoglobin 33.8 pg (27.0-33.0); Mean Corpuscular Volume 98.4 fL (80.0-98.0); Mean Platelet Volume 8.6 fL (9.4-12.4); Monocytes Absolute Auto 0.4 X10*3/uL (0.1-1.2); Monocytes Percent Auto 9.4 % (2-11); Neutrophils Absolute Auto 2.4 x10*3/uL (2.0-8.3); Neutrophils Percent Auto 58.3 % (45-73); Platelet Count 187 X10*3/uL (160-400); Red Blood Count 3.67 X10*6/uL (4.60-5.80); Red Cell Distribution Width 15.4 % (11.0-16.0); White Blood Count 4.1 X10*3/uL (4.8-10.8)
[2023-12-18 11:42] LABS: Anion Gap 10 (12-20); Blood Urea Nitrogen 18 mg/dL (9-16); Calcium 9.4 mg/dL (8.4-10.2); Carbon Dioxide 27 mmol/L (22-29); Chloride 107 mmol/L (96-108); Estimated Glomerular Filt Rate 43; Glucose Random 208 mg/dL (60-115); Potassium 4.1 mmol/L (3.3-5.1); Sodium 140 mmol/L (135-145)
== END 2023-12-18 10:32 | disposition home or self-care (01) ==
LOC: HO.LAB 10:31
PROVIDERS: Visit Provider Internal Medicine Hypertension Specialist
DX: N17.0 Acute kidney failure with tubular necrosis (principal); N18.31 Chronic kidney disease, stage 3a
CPT/HCPCS: 36415; 80048; 85025

== ENCOUNTER 2023-12-24 10:27 | Outpatient (REF) | payer OTHER, SELFPAY ==
[2023-12-24 12:04] LABS: C Reactive Protein 0.41 mg/dL (< or = 0.50)
[2023-12-24 12:43] LABS: Erythrocyte Sedimentation Rate 15 MM/HR (0-15)
== END 2023-12-24 10:28 | disposition home or self-care (01) ==
LOC: HO.HHCL 10:27
PROVIDERS: Visit Provider Emergency Medicine
DX: R51.9 Headache, unspecified (principal)
CPT/HCPCS: 36415; 85652; 86140

== ENCOUNTER 2024-02-18 09:29 | Outpatient (AMB) | payer OTHER, SELFPAY ==
--- NOTE | 2024-02-18 09:30 | HO.NEPHOV_ITS ---
Vital Signs 02/18/24 09:31 Weight 174 lb BP 150/80 H Blood Pressure Location Lt brachial Position Sitting Pulse 57 Pulse Source Pulse Oximeter Pulse Oximetry (%) 97 Oxygen Delivery Method Room Air Intake Visit Reasons: CKD/ 6-8 weeks fu/ Conf Early Childhood Lead Teacher Required: Yes Early Childhood Lead Teacher Name: Esther [id number] Accompanied by: Self / Same As Patient Allergies amlodipine Adverse Reaction (Unknown, Verified 02/18/24 09:32) leg edema HPI Comments Details: 68 Lithuanian-speaking man with type 2 diabetes mellitus on oral hypoglycemic agents, hypothyroidism, CAD and dyslipidemia . He was on ACEI & Spironolactone. Denied illicit drug use. His creatinine was found to be 4.71 (it was 1.57 on Feb 2023) with bicarb of 15 but had no hyperkalemia.He was admitted for further management. Bactrim was recently added MT resolved with hydration and after stopping ACEi/Bactrim [facility] Medical History Acquired hypothyroidism Dyslipidemia NSVT (nonsustained ventricular tachycardia) Atherosclerotic cardiovascular disease Coronary artery arteriosclerosis Essential hypertension Type 2 diabetes mellitus with diabetic polyneuropathy Surgical History History of colon resection Hx of colonoscopy History of cardiac catheterization Family History Father No problems noted. Mother No problems noted. Social History Household Members: None Housing: Condominium Do you presently have visiting nurse or other home services: No Alcohol intake: current Alcohol intake frequency: holidays/special occasions only Comment: pt refused camera in room, states unable to sleep with light from equipment Patient Tobacco Use Status: Never used Tobacco Second Hand Smoke Exposure: No Advance Directives Date on File: 10/03/20 service: No Physical Exam Vital Signs: Last Vital Signs Pulse 57 02/18/24 09:31 BP 150/80 H 02/18/24 09:31 Pulse Ox 97 02/18/24 09:31 Oxygen Delivery Method Room Air 02/18/24 09:31 Const General: comfortable Nutritional Appearance: well nourished Orientation/consciousness: patient oriented x3 HEENT Head: No normal to inspection Mouth: moist mucous membranes Neck Neck: Yes supple and Yes no JVD Resp Auscultation: clear to auscultation bilaterally and no rales Cardio Jugular venous distension: no JVD Palpation: no palpable S3 and no palpable S4 Heart sounds: no rubs GI Palpation (GI): Soft to palpation and nontender Percussion: No Fluid wave present General: Yes no CVA tenderness Back/Spine/Pelvis Back: no CVA tenderness Skin General skin exam: no rashes or lesions noted Neuro General: patient oriented x3 Extrem General: Yes no pedal edema and No clubbing Results Reviewed Nephrology Results: Hgb 12.4 g/dl (14.0-18.0) L 12/18/23 WBC 4.1 X10*3/uL (4.8-10.8) L 12/18/23 Plt Count 187 X10*3/uL (160-400) 12/18/23 Sodium 140 mmol/L (135-145) 12/18/23 Potassium 4.1 mmol/L (3.3-5.1) 12/18/23 Chloride 107 mmol/L (96-108) 12/18/23 Carbon Dioxide 27 mmol/L (22-29) 12/18/23 BUN 18 mg/dL (9-16) H 12/18/23 Creatinine 1.62 mg/dL (0.5-1.4) H 12/18/23 Calcium 9.4 mg/dL (8.4-10.2) 12/18/23 Phosphorus 3.6 mg/dL (2.7-4.5) 11/26/23 PTH Intact 42.6 pg/mL (8.7-77.1) 11/26/23 Urine Protein Negative mg/dL (Neg-Trace) 11/26/23 Urine Creatinine 118.24 mg/dL 11/26/23 Protein/Creatinin Ratio 0.10 (<0.2) 11/26/23 Assessment & Plan Assessment & Plan (1) Acute on chronic renal failure: Code(s): N17.9 - Acute kidney failure, unspecified; N18.9 - Chronic kidney disease, unspecified Category: Medical Qualifiers: Acute renal failure type: with acute tubular necrosis Chronic kidney disease stage: stage 3 (moderate) Chronic kidney disease stage 3 subtype: stage 3a (GFR 45-59) Qualified Code(s): N17.0 - Acute kidney failure with tubular necrosis; N18.31 - Chronic kidney disease, stage 3a Plan: MT superimposed on CKD due to hypoperfusion Renal function improved with hydration and after stopping ACEi /Bactrim/Aldactone combination BP well controlled Stay on low salt diet Keep I > O ; Encouraged PO fluid intake Avoid combination of ACEi/Spironolactone. Labs ordered Orders: Orders Comprehensive Met. Panel Today N17.0 - Acute kidney failure with tubular necrosis, N18.31 - Chronic kidney disease, stage 3a Complete Blood Count Auto Diff Today N17.0 - Acute kidney failure with tubular necrosis, N18.31 - Chronic kidney disease, stage 3a Coding Level of Care Code Est Pt Level 3 (97461) Diagnoses Acute renal failure with acute tubular necrosis superimposed on stage 3a chronic kidney disease N17.0; N18.31 Acute renal failure type: with acute tubular necrosis Chronic kidney disease stage: stage 3 (moderate) Chronic kidney disease stage 3 subtype: stage 3a (GFR 45-59)
[2024-02-18 09:31] VITALS: BP 150/80; PULSE 57; O2SAT 97
== END 2024-02-18 09:48 | disposition home or self-care (01) ==
PROVIDERS: PCP Nurse Practitioner Primary Care; Visit Provider Internal Medicine Hypertension Specialist
DX: N17.0 Acute kidney failure with tubular necrosis (principal); N18.31 Chronic kidney disease, stage 3a
CPT/HCPCS: 99213

== ENCOUNTER → 2024-02-18 09:29 | Outpatient (BNVA) | payer OTHER, SELFPAY | PROVIDERS: PCP Nurse Practitioner Primary Care; Visit Provider Internal Medicine Hypertension Specialist | DX: N17.0 Acute kidney failure with tubular necrosis (principal); N18.31 Chronic kidney disease, stage 3a | CPT/HCPCS: 99212 ==

== ENCOUNTER 2024-03-13 16:24 | Outpatient (REF) | payer OTHER, SELFPAY ==
[2024-03-13 17:25] LABS: Appearance Urine Clear; Color Urine Yellow; Glucose Urine UA >=1000 mg/dL (Negative); Leukocyte Esterase Urine Negative (Negative); Nitrite Urine Negative (Negative); PH 5.5 (5.0-9.0); UMIC TRIGGER UA YES; Urine Blood Negative (Negative); Urine Ketones Negative (Negative); Urine Protein Negative (Neg-Trace)
[2024-03-13 17:35] LABS: Bacteria Urine None Seen (None Seen); Hyaline Casts Urine 0-2 /LPF (0-2); RBC Urine 0-2 /HPF (0-2); Squamous Epithelial Cell Urine 0-2 /HPF (0-2); WBC Urine 0-5 /HPF (0-5)
== END 2024-03-13 16:25 | disposition home or self-care (01) ==
LOC: HO.HHCLNP 16:24
PROVIDERS: Visit Provider Nurse Practitioner Primary Care
DX: R35.0 Frequency of micturition (principal)
CPT/HCPCS: 81001; 81003

== ENCOUNTER 2024-03-18 11:23 | Outpatient (REF) | payer OTHER, SELFPAY ==
[2024-03-18 13:17] LABS: MANUAL DIFF FLAG NO
[2024-03-18 13:48] LABS: Eosinophils Absolute Auto 0.1 X10*3/uL (0.0-0.4); Eosinophils Percent Auto 3.1 % (0-4); Hematocrit 46.8 % (42.0-52.0); Hemoglobin 16.6 g/dl (14.0-18.0); Imm Gran Abs Auto 0.01 X10*3/uL (0.00-0.03); Imm Gran Pct Auto 0.3 % (0.0-0.4); Lymphocytes Absolute Auto 1.2 X10*3/uL (1.2-4.9); Lymphocytes Percent Auto 30.3 % (20-40); Mean Corpuscular HGB Conc 35.5 g/dl (31.0-36.0); Mean Corpuscular Hemoglobin 33.9 pg (27.0-33.0); Mean Corpuscular Volume 95.5 fL (80.0-98.0); Mean Platelet Volume 9.3 fL (9.4-12.4); Monocytes Absolute Auto 0.4 X10*3/uL (0.1-1.2); Monocytes Percent Auto 8.9 % (2-11); Neutrophils Absolute Auto 2.2 x10*3/uL (2.0-8.3); Neutrophils Percent Auto 56.4 % (45-73); White Blood Count 3.9 X10*3/uL (4.8-10.8)
[2024-03-18 13:50] LABS: Platelet Count 124 X10*3/uL (160-400)
[2024-03-18 14:12] LABS: TSH reflex Free T4 1.95 uIU/mL (0.32-4.0)
[2024-03-18 15:03] LABS: Anion Gap 14 (12-20); Blood Urea Nitrogen 22 mg/dL (9-16); Carbon Dioxide 25 mmol/L (22-29); Chloride 103 mmol/L (96-108); Estimated Glomerular Filt Rate 37; Glucose Random 493 mg/dL (60-115); Magnesium 2.1 mg/dL (1.6-2.6); Sodium 137 mmol/L (135-145)
[2024-03-19 08:29] LABS: HBS Num1 > 1000.00 mIU/mL (0-7.99); HBc Num1 2.69 S/CO (0.00-0.79); HBsAGNum1 0.26 S/CO (0.00-0.99); HIV AB/AG Nonreactive (Nonreactive); HIV Num 1 0.06 S/CO (0.00-0.99); Hepatitis B Surface Antigen Negative (Negative); ~HepC Num1 0.19 S/CO (0.00-0.79); ~Hepatitis A Antibody IgM Nonreactive (Nonreactive); ~Hepatitis B Surface Antibody REACTIVE (Nonreactive); ~Hepatitis C Antibody Nonreactive (Nonreactive)
[2024-03-19 09:21] LABS: HBc Num2 2.57 S/CO; HBc Num3 2.54 S/CO; Hepatitis B Core Antibody Reactive (Nonreactive)
== END 2024-03-18 11:24 | disposition home or self-care (01) ==
LOC: HO.HHCL 11:23
PROVIDERS: Visit Provider Nurse Practitioner Primary Care
DX: I12.9 Hypertensive chronic kidney disease with stage 1 through stage 4 chronic kidney disease, or unspecified chronic kidney disease (principal); D70.9 Neutropenia, unspecified; R53.1 Weakness
CPT/HCPCS: 36415; 80048; 83735; 84443; 85025; 86704; 86706; 86709; 86803; 87340; 87389

== ENCOUNTER 2024-03-26 11:31 | Outpatient (REF) | payer OTHER, SELFPAY ==
[2024-03-26 13:40] LABS: Cholesterol 137 mg/dL (<200); HDL Cholesterol 36 mg/dL (>40); LDL Cholesterol Calculated 67 mg/dL (<100); Triglycerides 173 mg/dL (<150)
== END 2024-03-26 11:32 | disposition home or self-care (01) ==
LOC: HO.HHCL 11:31
PROVIDERS: Visit Provider Nurse Practitioner Primary Care
DX: E11.69 Type 2 diabetes mellitus with other specified complication (principal); E78.5 Hyperlipidemia, unspecified; N17.0 Acute kidney failure with tubular necrosis
CPT/HCPCS: 36415; 80061

== ENCOUNTER 2024-04-10 08:42 | Outpatient (REF) | payer OTHER, SELFPAY ==
[2024-04-10 08:54] LABS: MANUAL DIFF FLAG NO
[2024-04-10 09:24] LABS: Basophils Absolute Auto 0.1 X10*3/uL (0.0-0.2); Basophils Percent Auto 1.2 % (0-2); Eosinophils Absolute Auto 0.2 X10*3/uL (0.0-0.4); Eosinophils Percent Auto 3.7 % (0-4); Hematocrit 44.6 % (42.0-52.0); Hemoglobin 16.1 g/dl (14.0-18.0); Imm Gran Abs Auto 0.02 X10*3/uL (0.00-0.03); Imm Gran Pct Auto 0.5 % (0.0-0.4); Lymphocytes Absolute Auto 1.5 X10*3/uL (1.2-4.9); Mean Corpuscular HGB Conc 36.1 g/dl (31.0-36.0); Mean Corpuscular Hemoglobin 33.6 pg (27.0-33.0); Mean Corpuscular Volume 93.1 fL (80.0-98.0); Mean Platelet Volume 8.5 fL (9.4-12.4); Monocytes Absolute Auto 0.4 X10*3/uL (0.1-1.2); Monocytes Percent Auto 9.1 % (2-11); Neutrophils Absolute Auto 2.1 x10*3/uL (2.0-8.3); Neutrophils Percent Auto 49.5 % (45-73); Platelet Count 133 X10*3/uL (160-400); Red Blood Count 4.79 X10*6/uL (4.60-5.80); Red Cell Distribution Width 13.2 % (11.0-16.0); White Blood Count 4.3 X10*3/uL (4.8-10.8)
[2024-04-10 09:57] LABS: Alanine Aminotransferase 27 U/L (0-40); Albumin Level 4.2 g/dL (3.5-5.0); Alkaline Phosphatase 85 U/L (39-117); Anion Gap 12 (12-20); Aspartate Amino Transferase 22 U/L (5-37); Bilirubin Total 0.6 mg/dL (0.0-1.0); Blood Urea Nitrogen 16 mg/dL (9-16); Calcium 9.6 mg/dL (8.4-10.2); Carbon Dioxide 25 mmol/L (22-29); Chloride 111 mmol/L (96-108); Estimated Glomerular Filt Rate 51; Glucose Random 175 mg/dL (60-115); Potassium 4.1 mmol/L (3.3-5.1); Sodium 144 mmol/L (135-145); Total Protein 7.4 g/dL (6.5-8.0)
== END 2024-04-10 08:43 | disposition home or self-care (01) ==
LOC: HO.LAB 08:42
PROVIDERS: PCP Student in an Organized Health Care Education/Training Program; Visit Provider Internal Medicine Hypertension Specialist
DX: N17.0 Acute kidney failure with tubular necrosis (principal); N18.31 Chronic kidney disease, stage 3a
CPT/HCPCS: 36415; 80053; 85025

== ENCOUNTER 2024-04-20 09:31 | Outpatient (AMB) | payer OTHER, SELFPAY ==
[2024-04-20 09:40] VITALS: BP 110/64; PULSE 69; O2SAT 95; BMI 23.7
--- NOTE | 2024-04-20 09:40 | HO.NEPHOV ---
Vital Signs 04/20/24 09:40 Height 5 ft 11 in Weight 170 lb BMI 23.7 BP 110/64 Blood Pressure Location Lt brachial Position Sitting Pulse 69 Pulse Source Pulse Oximeter Pulse Oximetry (%) 95 Oxygen Delivery Method Room Air Intake Visit Reasons: 2 mon follow up/ Conf Epic Interface Analyst Required: Yes Epic Interface Analyst Name: [id number] Shu Accompanied by: Self / Same As Patient Allergies amlodipine Adverse Reaction (Unknown, Verified 04/20/24 09:42) leg edema Medication List - Last Reconciled 04/20/24 by Frederic Harris MD acetaminophen ER 650 mg PO Q8H PRN aspirin 81 mg PO QAM atenolol 100 mg PO DAILY atorvastatin 80 mg PO BEDTIME 30 days blood sugar diagnostic (FreeStyle Lite Strips) 3times a day cholecalciferol (vitamin D3) 50 mcg PO QAM docusate sodium 100 mg PO BID PRN empagliflozin (Jardiance) 10 mg PO DAILY gabapentin 600 mg PO BEDTIME hydralazine 50 mg PO TID isosorbide mononitrate ER 120 mg PO DAILY lancets (TRUEplus Lancets) 3 times a day levothyroxine 125 mcg PO QAM melatonin 6 mg PO BEDTIME PRN multivitamin with iron 1 tab PO DAILY pantoprazole 40 mg PO QAM ranolazine ER 500 mg PO BID tamsulosin 0.4 mg PO QPM HPI Comments Details: 68 Mongolian-speaking man with type 2 diabetes mellitus on oral hypoglycemic agents, hypothyroidism, CAD and dyslipidemia . He was on ACEI & Spironolactone. Denied illicit drug use. His creatinine was found to be 4.71 (it was 1.57 on Feb 2023) with bicarb of 15 but had no hyperkalemia.He was admitted for further management. Bactrim was recently added MT resolved with hydration and after stopping ACEi/Bactrim 04/20/24 Overall doing doing well Interpretor service was used. NO urinary symptoms PFSH Medical History Acquired hypothyroidism Dyslipidemia NSVT (nonsustained ventricular tachycardia) Atherosclerotic cardiovascular disease Coronary artery arteriosclerosis Essential hypertension Type 2 diabetes mellitus with diabetic polyneuropathy Surgical History History of colon resection Hx of colonoscopy History of cardiac catheterization Family History Father No problems noted. Mother No problems noted. Social History Household Members: None Housing: Condominium Do you presently have visiting nurse or other home services: No Alcohol intake: current Alcohol intake frequency: holidays/special occasions only Comment: pt refused camera in room, states unable to sleep with light from equipment Patient Tobacco Use Status: Never used Tobacco Second Hand Smoke Exposure: No Advance Directives Date on File: 10/03/20 service: No Physical Exam Vital Signs: Last Vital Signs Pulse 69 04/20/24 09:40 BP 110/64 04/20/24 09:40 Pulse Ox 95 04/20/24 09:40 Oxygen Delivery Method Room Air 04/20/24 09:40 BMI result Body Mass Index 23.7 Const General: comfortable; No acute distress Orientation/consciousness: patient oriented x3 Eyes General: appearance normal, both eyes and all related structures Visual Bolanos: normal visual bolanos by confrontation Neck Neck: Yes supple and Yes no JVD Resp Effort & Inspection: normal respiratory effort and respiratory effort not decreased Auscultation: rhonchi Cardio Palpation: no palpable S3 and no palpable S4 Heart sounds: no rubs GI Inspection: Yes normal to inspection Palpation (GI): Soft to palpation Percussion: Yes normal to percussion Auscultation: normal bowel sounds General: Yes no CVA tenderness Back/Spine/Pelvis Back: no CVA tenderness Skin General skin exam: no petechiae and no purpura Neuro General: patient oriented x3 and no focal motor deficits Extrem General: No clubbing and No edema Results Reviewed Nephrology Results: Hgb 16.1 g/dl (14.0-18.0) 04/10/24 WBC 4.3 X10*3/uL (4.8-10.8) L 04/10/24 Plt Count 133 X10*3/uL (160-400) L 04/10/24 Sodium 144 mmol/L (135-145) 04/10/24 Potassium 4.1 mmol/L (3.3-5.1) 04/10/24 Chloride 111 mmol/L (96-108) H 04/10/24 Carbon Dioxide 25 mmol/L (22-29) 04/10/24 BUN 16 mg/dL (9-16) 04/10/24 Creatinine 1.38 mg/dL (0.5-1.4) 04/10/24 Calcium 9.6 mg/dL (8.4-10.2) 04/10/24 Urine Protein Negative mg/dL (Neg-Trace) 03/13/24 Assessment & Plan Assessment & Plan (1) Acute on chronic renal failure: Code(s): N17.9 - Acute kidney failure, unspecified; N18.9 - Chronic kidney disease, unspecified Category: Medical Qualifiers: Acute renal failure type: with acute tubular necrosis Chronic kidney disease stage: stage 3 (moderate) Chronic kidney disease stage 3 subtype: stage 3a (GFR 45-59) Qualified Code(s): N17.0 - Acute kidney failure with tubular necrosis; N18.31 - Chronic kidney disease, stage 3a Plan: MT superimposed on CKD due to hypoperfusion Renal function improved with hydration and after stopping ACEi /Bactrim/Aldactone combination BP well controlled Stay on low salt diet Keep I > O ; Encouraged PO fluid intake Avoid combination of ACEi/Spironolactone. Agree with SGLT-2 inhibitors REnal function has improved Cr down to 1.34 Orders: Orders Basic Metabolic Panel 6 Months N17.0 - Acute kidney failure with tubular necrosis, N18.31 - Chronic kidney disease, stage 3a Complete Blood Count Auto Diff 6 Months N17.0 - Acute kidney failure with tubular necrosis, N18.31 - Chronic kidney disease, stage 3a Total Protein Urine Random Today N17.0 - Acute kidney failure with tubular necrosis, N18.31 - Chronic kidney disease, stage 3a Creatinine Urine Today N17.0 - Acute kidney failure with tubular necrosis, N18.31 - Chronic kidney disease, stage 3a Coding Level of Care Code Est Pt Level 4 (25049) Diagnoses Acute renal failure with acute tubular necrosis superimposed on stage 3a chronic kidney disease N17.0; N18.31 Acute renal failure type: with acute tubular necrosis Chronic kidney disease stage: stage 3 (moderate) Chronic kidney disease stage 3 subtype: stage 3a (GFR 45-59)
== END 2024-04-20 09:57 | disposition home or self-care (01) ==
PROVIDERS: PCP Nurse Practitioner Primary Care; Visit Provider Internal Medicine Hypertension Specialist
DX: N17.0 Acute kidney failure with tubular necrosis (principal); E11.22 Type 2 diabetes mellitus with diabetic chronic kidney disease; N18.31 Chronic kidney disease, stage 3a
CPT/HCPCS: 99214

== ENCOUNTER → 2024-04-20 09:31 | Outpatient (BNVA) | payer OTHER, SELFPAY | LOC: HO.LAB 04-21 14:10 → CF 04-21 14:10 | PROVIDERS: PCP Nurse Practitioner Primary Care; Visit Provider Internal Medicine Hypertension Specialist | DX: E11.22 Type 2 diabetes mellitus with diabetic chronic kidney disease (principal); N18.31 Chronic kidney disease, stage 3a; N17.0 Acute kidney failure with tubular necrosis | CPT/HCPCS: 99212 ==

== ENCOUNTER 2024-04-21 14:10 | Outpatient (REF) | payer OTHER, SELFPAY ==
[2024-04-21 16:57] LABS: Creatinine Urine 60.84 mg/dL; Total Protein Urine Random < 7 mg/dL (<12)
== END 2024-04-21 14:11 | disposition home or self-care (01) ==
LOC: HO.LAB 14:10
PROVIDERS: Visit Provider Internal Medicine Hypertension Specialist
DX: N17.0 Acute kidney failure with tubular necrosis (principal); N18.31 Chronic kidney disease, stage 3a
CPT/HCPCS: 82570; 84156

== ENCOUNTER 2024-06-09 09:01 | Outpatient (REF) | payer OTHER, SELFPAY ==
[2024-06-09 11:36] LABS: Cholesterol 104 mg/dL (<200); HDL Cholesterol 37 mg/dL (>40); LDL Cholesterol Calculated 42 mg/dL (<100); Triglycerides 126 mg/dL (<150)
[2024-06-09 11:49] LABS: Creatinine Urine 102.05 mg/dL; Microalbum/Creatinine Ratio Ur 55.8 ug/mg cr (<30)
== END 2024-06-09 09:02 | disposition home or self-care (01) ==
LOC: HO.HHCL 09:01
PROVIDERS: Visit Provider Nurse Practitioner Primary Care
DX: E11.69 Type 2 diabetes mellitus with other specified complication (principal); E78.5 Hyperlipidemia, unspecified
CPT/HCPCS: 36415; 80061; 82043; 82570

== ENCOUNTER 2024-06-11 12:32 | Outpatient (AMB) | payer OTHER, SELFPAY ==
[2024-06-11 12:34] VITALS: BP 136/68; PULSE 66; BMI 24.2
--- NOTE | 2024-06-11 12:34 | MHC.OFFVIS ---
Vital Signs 06/11/24 12:34 Height 5 ft 11 in Weight 173 lb 4.533 oz BMI 24.2 BP 136/68 Blood Pressure Location Lt brachial Position Sitting Pulse 66 Pulse Source Pulse Oximeter Intake Visit Reasons: 1 yr f/up Forklift Wheel Loader Required: Yes Forklift Wheel Loader Language: Hot Kettle Tender Name: servando/marek/farzaneh [id number] Accompanied by: Self / Same As Patient Allergies amlodipine Adverse Reaction (Unknown, Verified 04/20/24 09:42) leg edema Medication List - Last Reconciled 06/11/24 by Lacho García MD acetaminophen ER 650 mg PO Q8H PRN aspirin 81 mg PO QAM atenolol 100 mg PO DAILY atorvastatin 80 mg PO BEDTIME 30 days blood sugar diagnostic (FreeStyle Lite Strips) 3times a day cholecalciferol (vitamin D3) 50 mcg PO QAM docusate sodium 100 mg PO BID PRN empagliflozin (Jardiance) 10 mg PO DAILY folic acid 1 mg PO DAILY gabapentin 600 mg PO BEDTIME hydralazine 50 mg PO TID isosorbide mononitrate ER 120 mg PO DAILY lancets (TRUEplus Lancets) 3 times a day levothyroxine 125 mcg PO QAM melatonin 6 mg PO BEDTIME PRN multivitamin with iron 1 tab PO DAILY pantoprazole 40 mg PO QAM ranolazine ER 500 mg PO BID tamsulosin 0.4 mg PO QPM HPI Comments Details: Steve returns for follow-up regarding coronary disease. In the past, he had undergone right coronary artery stenting. Due to continued anginal-type symptoms, he underwent another cardiac catheterization and found to have severe LAD/diagonal stenosis. He also had known chronic total occlusion of the circumflex. Then had bypass surgery. Since last seen, he states he feels fine. No angina or in fact any cardiac symptoms. [facility] Medical History Acquired hypothyroidism Dyslipidemia NSVT (nonsustained ventricular tachycardia) Atherosclerotic cardiovascular disease Coronary artery arteriosclerosis Essential hypertension Type 2 diabetes mellitus with diabetic polyneuropathy Surgical History History of colon resection Hx of colonoscopy History of cardiac catheterization Family History Father No problems noted. Mother No problems noted. Social History Household Members: None Housing: Condominium Do you presently have visiting nurse or other home services: No Alcohol intake: current Alcohol intake frequency: holidays/special occasions only Comment: pt refused camera in room, states unable to sleep with light from equipment Patient Tobacco Use Status: Never used Tobacco Second Hand Smoke Exposure: No Advance Directives Date on File: 10/03/20 service: No Review of Systems Const Denies chills, Denies fatigue, Denies fever(s), Denies frequent falls, Denies weakness, Denies weight gain and Denies weight loss ENT Denies dizziness Card Denies chest pain, Denies leg edema, Denies lightheadedness, Denies palpitations, Denies dyspnea and Denies dyspnea on exertion Resp Denies cough, Denies dyspnea and Denies dyspnea on exertion GI Denies hematochezia Musc Denies abnormal gait, Denies muscle weakness, Denies numbness, Denies radiating pain into limb and Denies tingling Neuro Denies abnormal gait, Denies dizziness, Denies frequent falls, Denies numbness, Denies tingling and Denies weakness Endo Denies fatigue and Denies palpitations Physical Exam Vital Signs: Last Vital Signs Pulse 66 06/11/24 12:34 BP 136/68 06/11/24 12:34 BMI result Body Mass Index 24.2 Const General: comfortable and no acute distress Orientation/consciousness: patient oriented x3 HEENT Other: Unremarkable Head: Yes normal to inspection Neck Neck: Yes normal visual inspection Chest Chest palpation & inspection: normal inspection of the chest Resp Auscultation: clear to auscultation bilaterally Cardio Palpation: normal PMI Heart sounds: S1 normal heart sound present, S2 normal heart sound present, no gallops, no murmurs and no rubs GI Palpation (GI): Soft to palpation Back/Spine/Pelvis Other: unremarkable Skin General skin exam: no rashes or lesions noted Neuro General: patient oriented x3 Extrem General: Yes normal to inspection Psych Mental Status: mental status grossly normal Assessment & Plan Assessment & Plan (1) Atherosclerotic cardiovascular disease: Code(s): I25.10 - Atherosclerotic heart disease of [place] coronary artery without angina pectoris Category: Medical Plan: Stable. No angina. Continue aspirin and statins. Last available LDL 42 mg/dL. (2) Status post coronary artery bypass graft: Code(s): Z95.1 - Presence of aortocoronary bypass graft Category: Surgical Plan: Recovered completely. (3) NSVT (nonsustained ventricular tachycardia): Code(s): I47.2 - Ventricular tachycardia Category: Medical Plan: No recent issues. Continue beta-blockers. (4) Essential hypertension: Code(s): I10 - Essential (primary) hypertension Category: Medical Plan: Stable. No changes. (5) Type 2 diabetes mellitus with unspecified complications: Code(s): E11.8 - Type 2 diabetes mellitus with unspecified complications Category: Medical Plan: Recent hemoglobin A1c is 6.2%. On Jardiance. Coding Level of Care Code Est Pt Level 4 (09954) Diagnoses Atherosclerotic cardiovascular disease I25.10 Status post coronary artery bypass graft Z95.1 NSVT (nonsustained ventricular tachycardia) I47.2 Essential hypertension I10 Type 2 diabetes mellitus with unspecified complications E11.8
== END 2024-06-11 12:50 | disposition home or self-care (01) ==
PROVIDERS: PCP Nurse Practitioner Primary Care; Visit Provider Internal Medicine
DX: I25.10 Atherosclerotic heart disease of native coronary artery without angina pectoris (principal); Z95.1 Presence of aortocoronary bypass graft; I47.20 Ventricular tachycardia, unspecified; I10 Essential (primary) hypertension; E11.8 Type 2 diabetes mellitus with unspecified complications
CPT/HCPCS: 99214

== ENCOUNTER → 2024-06-11 12:32 | Outpatient (BNVA) | payer OTHER, SELFPAY | PROVIDERS: PCP Nurse Practitioner Primary Care; Visit Provider Internal Medicine | DX: I25.10 Atherosclerotic heart disease of native coronary artery without angina pectoris (principal); I10 Essential (primary) hypertension; I47.20 Ventricular tachycardia, unspecified; E11.9 Type 2 diabetes mellitus without complications; Z95.1 Presence of aortocoronary bypass graft | CPT/HCPCS: 99212 ==

== ENCOUNTER 2024-09-18 10:49 | Outpatient (REF) | payer OTHER, SELFPAY ==
--- NOTE | ~2024-09-18 | XR_ITS ---
EXAMINATION: XR CHEST CLINICAL INFORMATION: shortness of breath COMPARISON: October 18, 2021. TECHNIQUE: 2 views of the chest were obtained. FINDINGS: No consolidation, pleural effusion or pneumothorax. Elevated right hemidiaphragm. Sternal wires. Cardiomediastinal silhouette is unchanged with a round apex. Calcified plaque thoracic aorta. Vascular clips in the mediastinum. Multilevel thoracic spondylosis. Probable 1 mm calcified pulmonary nodule left lung likely granuloma. XR/XR chest 2V IMPRESSION: No acute airspace disease. Stable chest. Electronically signed by: Heath Abdi MD 09/18/2024 11:12 AM AFSHAN
--- OUTSIDE RECORDS SUMMARY | 2024-09-18 11:54 | XMS_ITS | Encounter Summary ---
Author Organization [facility] Address [address] [place] [address] [address] [place] [address] Care Team Providers Care Slab Off Mill Tender Name Role Phone Bobbi Ricks Primary Care Provider [phone] Jing Brooks PharmD Unavailable Encounter Details Date Type Department Care Team (Late Contact Info) Description 03/18/2023 Orders Only [facility] MEDICINE [address] [place] [id number] Vj Tolbert [address] [place] [address] Social History Tobacco Use Types Packs/Day Years Used Date Smoking Tobacco: Never Passive Smoke Exposure: Never Smokeless Tobacco: Never Alcohol Use Standard Drinks/Week Comments Never 0 (1 standard drink = 0.6 oz pur e alcohol) Depression Answer Date Recorded Patient Health Questionnaire-9 Score 14 11/29/2022 Depression Answer Date Recorded Patient Health Questionnaire-2 Score 6 11/29/2022 Sex and Gender Information Value Date Recorded Sex Assigned at Male 05/28/2022 10:19 AM EDT Legal Sex Male 10:19 AM EDT Gender Identity Male 05/28/2022 10:19 AM EDT Sexual Orientation Straight 05/28/2022 10 :19 AM EDT documented as of this encounter Plan of Treatment Upcoming Encounters Date Type Department Care Team (Late st Contact Info) Description 09/23/2024 2:00 PM EST Medication Management [facility] MEDICINE [address] [place] [id number] Jing Brooks, PharmD [address] [place], [place] [id number] 10/16/2024 10:30 AM EDT Office Visit [facility] OPTOMETRY [address] [place] [address] Faye Quinn, OD [address] [place] [address] 10/26/2024 11:00 AM EDT Office Visit [facility] MEDICINE [address] [place] [address] Bobbi Ricks ANP [address] [place] [address] documented as of this encounter Visit Diagnoses Not on filedocumented in this encounter Additional Health Concerns Assessment Noted Time PHQ-9 Depression Total Score: 14 023 9:40 AM EDT documented as of this encounter Care Teams Slab Off Mill Tender Relationship Specialty Start Date End Date Bobbi Ricks ANP [address] [place] [id number] PCP - General Family Medicine 03/08/21 Jing Brooks PharmD [address] [place] [id number] Pharmacist Internal Medicine 03/24/24 documented as of this encounter
--- OUTSIDE RECORDS SUMMARY | 2024-09-18 11:54 | XMS_ITS | Encounter Summary ---
Author Organization [employer] Address [address] [facility] [address] [place] [address] Care Team Providers Care Re Etcher Name Role Phone Bobbi Ricks Primary Care Provider [phone] Jing Brooks PharmD Unavailable [phone] Reason for Visit * Reason Onset Date Comments Appointment Request 10/29/2022 Encounter Details Date Type Department Care Team ([facility] st Contact Info) Description 10/29/2022 Telephone [facility] MEDICINE [address] [place] [address] Bobbi Ricks ANP [address] [place] [address] Appointment Request Social History Tobacco Use Types Packs/Day Years Used Date Smoking Tobacco: Never Smokeless Tobacco: Never Alcohol Use Standard Drinks/Week Comments Never 0 (1 standard drink = 0.6 oz pur e alcohol) Sex and Gender Information Value Date Recorded Sex Assigned at Male 05/28/2022 10:19 AM EDT Legal Sex Male 10:19 AM EDT Gender Identity Male 05/28/2022 10:19 AM EDT Sexual Orientation Straight 05/28/2022 10 :19 AM EDT COVID-19 Exposure Response Date Recorded In the last 10 days, have yo u been in contact with someone who was confirmed or suspected to have Coronavirus/COVID-19? No / Unsure 10/22/2022 7:56 AM EDT documented as of this encounter Miscellaneous Notes * Telephone Encounter - [place] - 10/29/2022 10:38 AM EDT Jeronimo Alexander with [facility] requesting an appt with provider. Experimental Flight Test Mechanic tried booking but provider has nothing available at this time. Please contact pt at [phone] [place] Speaker documented in this encounter Plan of Treatment Upcoming Encounters Date Type Department Care Team (Late st Contact Info) Description 09/23/2024 2:00 PM EST Medication Management [facility] MEDICINE [address] [place] [address] Jing Brooks, Julia [address] [place] [address] 10/16/2024 10:30 AM EDT Office Visit [facility] OPTOMETRY [address] [place] [address] Faye Quinn, OD [address] [place] [address] 10/26/2024 11:00 AM EDT Office Visit [facility] MEDICINE [address] [place] [address] Bobbi Ricks ANP [address] [place] [address] documented as of this encounter Visit Diagnoses Not on filedocumented in this encounter Care Teams Re Etcher Relationship Specialty Start Date End Date Bobbi Ricks ANP [address] [place] [id number] PCP - General Family Medicine 03/08/21 Jing Brooks, JasminD [address] [place] [phone] Pharmacist Internal Medicine 03/24/24 documented as of this encounter
--- OUTSIDE RECORDS SUMMARY | 2024-09-18 11:54 | XMS_ITS | Encounter Summary ---
Author Organization [employer] Address [address] [facility] 7t [place] [address] Care Team Providers Care Merchandise Examiner Name Role Phone Bobbi Ricks Primary Care Provider [phone] Jing Brooks PharmD Unavailable [phone] Reason for Visit * Reason Comments Med Refill Encounter Details Date Type Department Care Team ([facility] st Contact Info) Description 11/12/2023 Refill [facility] MEDICINE [address] [place], [place] [phone] Bobib Ricks ANP [address] [place] [address] Essential hypertension Social History Tobacco Use Types Packs/Day Years Used Date Smoking Tobacco: Never Passive Smoke Exposure: Never Smokeless Tobacco: Never Alcohol Use Standard Drinks/Week Comments Never 0 (1 standard drink = 0.6 oz pur e alcohol) Depression Answer Date Recorded Patient Health Questionnaire-9 Score 14 11/29/2022 Housing Stability Answer Date Recorded What is your housing situation today? I have delbert robert 05/14/[address] you li ve. Do you have problems with any of the following? None of the above 05/14/2023 Food Insecurity Answer Date Recorded Within the past 12 months, y ou worried that your food would run out before you got money to buy more: Never True 05/14/2023 Within the past 12 months,th e food you bought just didn't last and you didn't have enough money to get more: Never True Transportation Answer Date Recorded In the past 12 months, has l ack of transportation kept you from medical appts, meetings, work or from getting things needed for daily living? Yes, it has kept me from medical appointments or getting medications. 10/16/2023 Utilities Answer Date Recorded In the past 12 months, has t he electric, gas, oil or water company threatened to shut off services in your home? No 05/14/2023 Depression Answer Date Recorded Patient Health Questionnaire-2 Score 0 10/24/2023 Sex and Gender Information Value Date Recorded Sex Assigned at Male 05/28/2022 10:19 AM EDT Legal Sex Male 10:19 AM EDT Gender Identity Male 05/28/2022 10:19 AM EDT Sexual Orientation Straight 05/28/2022 10 :19 AM EDT documented as of this encounter Plan of Treatment Upcoming Encounters Date Type Department Care Team (Late st Contact Info) Description 09/23/2024 2:00 PM EST Medication Management [facility] MEDICINE [address] [place] [address] Jing Brooks, PharmD [address] [place] [address] 10/16/2024 10:30 AM EDT Office Visit [facility] OPTOMETRY [address] [place] [address] Tarka, Faye, OD [address] [place] [address] 10/26/2024 11:00 AM EDT Office Visit [facility] MEDICINE [address] [place] [address] Bobbi Ricks ANP [address] [place] [address] documented as of this encounter Goals Goal Patient Goal Type Associated Problems Recent Progress Patient-Stated? Author Blood Pressure < 140/90 Blood Pressure 157/80(2024 10:10 AM EST) No Piers-Gambl e, Jing, PharmD Hemoglobin A1c < 7 Result Component 9.4( 4:08 PM EST) No Rishis-Gambl Alma lugosa, PharmD documented as of this encounter Visit Diagnoses Diagnosis Essential hypertension Unspecified essential hypertension documented in this encounter Additional Health Concerns Assessment Noted Time PHQ-9 Depression Total Score: 14 023 9:40 AM EDT documented as of this encounter Care Teams Merchandise Examiner Relationship Specialty Start Date End Date Bobbi iRcks ANP [address] [place] [address] PCP - General Family Medicine 03/08/21 Jing Brooks PharmD [address] [place] [address] Pharmacist Internal Medicine 03/24/24 documented as of this encounter
--- OUTSIDE RECORDS SUMMARY | 2024-09-18 11:54 | XMS_ITS | Encounter Summary ---
Author Organization [employer] Address [address] [facility] 7t [place] [address] Care Team Providers Care Plastics Seasoner Operator Name Role Phone Bobbi Ricks Primary Care Provider [phone] Jing Brooks PharmD Unavailable [phone] Encounter Details Date Type Department Care Team (Late st Contact Info) Description 10/21/2023 Orders Only [facility] MEDICINE [address] [place] [address] Bobbi Ricks ANP [address] [place] [address] Social History Tobacco Use Types Packs/Day Years [...] Description 09/23/2024 2:00 PM EST Medication Management [facility] MEDICINE [address] [place] [address] Jing Brooks, PharmD 230 [place] [address] 10/16/2024 10:30 AM EDT Office Visit [facility] OPTOMETRY [address] [place] [address] Tarka, Faye, OD [address] [place] [address] 10/26/2024 11:00 AM EDT Office Visit [facility] MEDICINE [address] [place] [address] Bobbi Ricks ANP [address] [place] [address] documented as of this encounter Goals Goal Patient Goal Type Associated Problems Recent Progress Patient-Stated? Author Blood Pressure < 140/90 Blood Pressure 157/80(2024 10:10 AM EST) No Rishis-Jing Rosales, PharmD Hemoglobin A1c < 7 Result Component 9.4( 4:08 PM EST) No RishisJing Donovan, PharmD documented as of this encounter Visit Diagnoses Not on filedocumented in this encounter Additional Health Concerns Assessment Noted Time PHQ-9 Depression Total Score: 14 023 9:40 AM EDT documented as of this encounter Care Teams Plastics Seasoner Operator Relationship Specialty Start Date End Date Bobbi Ricks ANP [address] [place] [address] PCP - General Family Medicine 03/08/21 Jing Brooks PharmD [address] [place] [address] Pharmacist Internal Medicine 03/24/24 documented as of this encounter
--- OUTSIDE RECORDS SUMMARY | 2024-09-18 11:54 | XMS_ITS | Encounter Summary ---
Author Organization [employer] [facility] Address [address] [place] [address] 7t [place] [address] Care Team Providers Care Program Engineer Name Role Phone Bobbi Ricks Primary Care Provider [phone] Jing Brooks PharmD Unavailable [phone] Reason for Visit * Reason Comments Med Refill Encounter Details Date Type Department Care Team (Late st Contact Info) Description 02/14/2023 Refill [facility] MEDICINE [address] [place] [address] Bobbi Ricks ANP [address] [place] [address] Hypertension associated with diabetes (CMS/HCC) Social History Tobacco Use Types Packs/Day Years [...] Description 09/23/2024 2:00 PM EST Medication Management [facility] [address] [place] [address] Jing Brooks, PharmD 230 [place] [address] 10/16/2024 10:30 AM EDT Office Visit [facility] OPTOMETRY [address] [place] [address] Alankomal Faye, OD [address] [place] [address] 10/26/2024 11:00 AM EDT Office Visit [facility] MED[facility]INE [address] [place] [address] Bobbi Ricks ANP [address] [place] [address] documented as of this encounter Visit Diagnoses Diagnosis Hypertension associated with diabetes (CMS/HCC) (CMS/HCC) Unspecified essential hypertension documented in this encounter Additional Health Concerns Assessment Noted Time PHQ-9 Depression Total Score: 14 023 9:40 AM EDT documented as of this encounter Care Teams Program Engineer Relationship Specialty Start Date End Date Bobbi Ricks ANP [address] [place] [address] PCP - General Family Medicine 03/08/21 Jing Brooks, Julia [address] [place] [address] Pharmacist Internal Medicine 03/24/24 documented as of this encounter
--- OUTSIDE RECORDS SUMMARY | 2024-09-18 11:54 | XMS_ITS | Encounter Summary ---
Author Organization [employer] Address [address] [facility] 7t [place] [address] Care Team Providers Care Hay Baler Name Role Phone Bobbi Ricks Primary Care Provider [phone] Jing Brooks PharmD Unavailable [phone] Encounter Details Date Type Department Care Team (Late st Contact Info) Description 09/08/2024 Orders Only [facility] MEDICINE 230 [place], [place] [phone] Bobbi Ricks ANP 230 [place] [address] Mixed hyperlipidemia Social History Tobacco Use Types Packs/Day Years [...] AM EDT documented as of this encounter Progress Notes * ELAINA Dsouza - 09/08/2024 11:25 AM EST Statin refill documented in this encounter Plan of Treatment Upcoming Encounters Date Type Department Care Team (Late st Contact Info) Description 09/23/2024 2:00 PM EST Medication Management [facility] MEDICINE [address] [place] [address] Jing Brooks, PharmD 230 [place] [address] 10/16/2024 10:30 AM EDT Office Visit [facility] OPTOMETRY [address] [place] [address] Tarka, Faye, OD [address] [place] [address] 10/26/2024 11:00 AM EDT Office Visit [facility] MEDICINE [address] [place] [address] Bobbi Ricks ANP 230 [place] [address] documented as of this encounter Goals Goal Patient Goal Type Associated Problems Recent Progress Patient-Stated? Author Blood Pressure < 140/90 Blood Pressure 157/80(2024 10:10 AM EST) No Jing Smith, PharmEssence Hemoglobin A1c < 7 Result Component 9.4(11/06/202 4 4:08 PM EST) No Jing Smith PharmD documented as of this encounter Visit Diagnoses Diagnosis Mixed hyperlipidemia documented in this encounter Additional Health Concerns Assessment Noted Time PHQ-9 Depression Total Score: 14 023 9:40 AM EDT documented as of this encounter Care Teams Hay Baler Relationship Specialty Start Date End Date Bobbi Ricks ANP 230 [place] [address] PCP - General Family Medicine 03/08/21 Jing Brooks, JasminD 230 [place] [address] Pharmacist Internal Medicine 03/24/24 documented as of this encounter
--- OUTSIDE RECORDS SUMMARY | 2024-09-18 11:54 | XMS_ITS | Clinical Summary ---
Author Organization [facility] Address [address] [facility] [address] [place] [address] Phone Care Team Providers Care Regional Vice President Life Sales Name Role Phone Bobbi Ricks NP Primary Care Provider Kiley e Allergies Active Allergy Reactions Criticality Noted Date Comments Amlodipine Other (see comments) 09/30/2020 Medications aspirin (ST DEBORAH) 81 MG EC tablet Take 1 tablet by mouth 1 (one) time each day Active Cholecalciferol 50 MCG (1999 UT) capsule Take 1 capsule by mouth 1 (one) time each day Active clopidogrel (Plavix) 75 MG tablet Take 1 tablet by mouth 1 (one) time each day Active dicyclomine (BENTYL) 20 MG tablet Take 1 tablet by mouth 4 (four) times a day Active diphenhydrAMINE (SOMINEX) 25 MG tablet Take 1 tablet by mouth 1 (one) time each day Active glipiZIDE (GLUCOTROL) 5 MG tablet Take 1 tablet by mouth 1 (one) time each day Active hydrALAZINE 100 MG tablet Take 100 mg by mouth in the morning and 100 mg in the evening and 100 mg before bedtime. Active hydroCHLOROthiaz amanda (HYDRODIURIL) 25 MG tablet Take 1 tablet by mouth 1 (one) time each day Active isosorbide mononitrate (IMDUR) 60 MG 24 hr tablet Take 1 tablet by mouth 1 (one) time each day Active lisinopril (PRINIVIL,ZESTRI L) 40 MG tablet Take 1 tablet by mouth 1 (one) time each day Active meloxicam (MOBIC) 15 MG tablet Take 1 tablet by mouth 1 (one) time each day Active metFORMIN (GLUCOPHAGE) 1000 MG tablet Take 500 mg by mouth in the morning and 500 mg in the evening. Active levothyroxine (SYNTHROID, LEVOTHROID) 125 MCG tablet Take 1 tablet by mouth 1 (one) time each day 09/26/2020 Active gabapentin (NEURONTIN) 300 MG capsule Take 1 capsule by mouth 3 (three) times a day Active folic acid (FOLVITE) 1 MG tablet Take 1 tablet by mouth 1 (one) time each day 09/29/2020 Active atorvastatin (LIPITOR) 80 MG tablet Take 1 tablet by mouth 1 (one) time each day 09/29/2020 Active atenolol (TENORMIN) 100 MG tablet Take 1 tablet by mouth 1 (one) time each day 09/29/2020 Active Mirabegron ER (Myrbetriq) 50 MG tablet sustained-releas e 24 hour Take 1 tablet by mouth 1 (one) time each day Active pantoprazole (PROTONIX) 40 MG EC tablet Take 1 tablet by mouth 1 (one) time each day Active simethicone (MYLICON,GAS-X) 125 MG capsule Take 1 capsule by mouth 4 (four) times a day Active SITagliptin (Januvia) 100 MG tablet Take 1 tablet by mouth 1 (one) time each day Active SUMAtriptan (IMITREX) 25 MG tablet Take 1-2 tablets by mouth 1 (one) time each day Active tamsulosin (FLOMAX) 0.4 MG 24 hr capsule Take 1 capsule by mouth 1 (one) time each day Active traMADol (ULTRAM) 50 MG tablet Take 1 tablet by mouth 2 (two) times a day Active ranolazine (RANEXA) 500 MG 12 hr tablet 09/29/2020 Active amLODIPine (NORVASC) 10 MG tablet Take 1 tablet by mouth 1 (one) time each day 09/02/2020 Active nitroglycerin (NITROSTAT) 0.4 MG SL tablet 09/13/2020 Active Active Problems Problem Noted Date Diagnosed Date Stage 3a chronic kidney disease 01/26/2024 Secondary hyperparathyroidism 01/26/2024 Hypertension 11/25/2023 Vitamin D deficiency, not otherwise specified Dyslipidemia 11/25/2023 Diabetes mellitus, not otherwise specified 11/24 History of amputation of right hand 11/25/2023 Proteinuria 09/30/2020 Resolved Problems Problem Noted Date Diagnosed Date Resolved Date Diverticular disease of colon 11/25/2023 01/26/2024 Hearing loss 11/25/2023 01/26/2024 Subclinical hypothyroidism 11/25/2023 0 01/26/2024 Hypertensive renal disease 09/30/2020 0 01/26/2024 Social History Tobacco Use Types Packs/Day Years Used Date Smoking Tobacco: Never Alcohol Use Standard Drinks/Week Comments No 0 (1 standard drink = 0.6 oz pur e alcohol) Sex and Gender Information Value Date Recorded Sex Assigned at Not on file Legal Sex Male 4:57 PM EST Gender Identity Not on file Sexual Orientation Not on file Last Filed Vital Signs Vital Sign Reading Time Taken Comments Blood Pressure 118/60 11/25/2023 3:57 PM EDT Pulse 56 11/25/2023 3:57 PM EDT Temperature - - Respiratory Rate - - Oxygen Saturation 97% 11/25/2023 3:57 PM EDT Inhaled Oxygen Concentration - - Weight 77.6 kg (171 lb) 11/25/2023 3:57 PM EDT Height 180.3 cm (5' 11 ) 11/12/2019 12:00 PM EDT Body Mass Index 23.85 11/12/2019 12:00 PM EDT Plan of Treatment Health Maintenance Due Date Last Done Comments Colorectal Cancer Screening: Annual FOBT 2004 Colorectal Cancer Screening: Colonoscopy 2004 Colorectal Cancer Screening: Sigmoidoscopy 2004 Diabetes: Ophthalmology Exam 11/25/2023 Diabetes: Pedal Pulse Checked 11/25/2023 Diabetes: Sensory Foot Exam 11/25/2023 Diabetes: Visual Foot Exam 11/25/2023 Diabetes: Hemoglobin A1C 01/24/2024 10/24/2023 Influenza Vaccine (#1) 2024 0, 04/08/2019, 05/29/2018, Additional history exists Pneumococcal Vaccine: 65+ Years Completed 03/18/2023, 05/27/2020, 12/03/2016, Additional history exists Hepatitis B Vaccine Aged Out 04/05/2023, 04/26/2011, 10/12/2010 No longer eligible based on patient's age to complete this topic Insurance [facility] MCR ([id number]) [facility] DUAL SNP ([id number]) Care Teams Regional Vice President Life Sales Relationship Specialty Start Date End Date Bobbi Ricks NP PCP - General Nurse Practitioner 07/04/23
--- OUTSIDE RECORDS SUMMARY | 2024-09-18 11:54 | XMS_ITS | Encounter Summary ---
Author Organization [employer] Address [address] [facility] 7t [place] [address] Care Team Providers Care Corporate Treasury Analyst Name Role Phone Bobbi Ricks ELAINA Primary Care Provider [phone] Jing Brooks PharmD Unavailable [phone] Reason for Visit * Reason Onset Date Comments Nurse Triage 09/18/2024 Encounter Details Date Type Department Care Team ([facility] st Contact Info) Description 09/18/2024 Telephone [facility] WALK-IN CENTER 230 [place], [place] [phone] Usha Atkins NP 230 [place] [address] Nurse Triage Social History Tobacco Use Types Packs/Day Years [...] encounter Miscellaneous Notes * Telephone Encounter - Gracy Frey RN - 09/18/2024 9:22 AM EST button riveter Patient presents to walk-in center initialing reporting he is short of breath. Patient brought intotriage room by this RN. Patient able to ambulate in triage room without s/sx respiratory distress. Patient reports over the last 5-6 days he has strong flu symptoms. He reports he has a dry mouth,he is fatigued, and has a runny nose. Vitals: BP 161/90 HR 70 RR 18 SpO2 95% on room air Temp 98.4 (oral) Patient to be swabbed for COVID/ Influenza. Patient to remain in room to await provider evaluation. Patient well-appearing, in no acute distress. Patient verbalizes understanding and agreement with plan of care at this time. Interpretor ID # [id number] Prabhu documented in this encounter Plan of Treatment Upcoming Encounters Date Type Department Care Team (Late st Contact Info) Description 09/23/2024 2:00 PM EST Medication Management [facility] MEDICINE [address] [place], [place] [phone] Jing Brooks, PharmD [address] [place], [place] [phone] 10/16/2024 10:30 AM EDT Office Visit [facility] OPTOMETRY [address] [place], [place] [phone] Faye Quinn, OD [address] [place] [address] 10/26/2024 11:00 AM EDT Office Visit [facility] MEDICINE [address] [place] [address] Bobbi Ricks ANP [address] [place] [address] documented as of this encounter Goals Goal Patient Goal Type Associated Problems Recent Progress Patient-Stated? Author Blood Pressure < 140/90 Blood Pressure 157/80(2024 10:10 AM EST) No Jing Smith PharmD Hemoglobin A1c < 7 Result Component 9.4( 4:08 PM EST) No Jing Smith PharmD documented as of this encounter Visit Diagnoses Not on filedocumented in this encounter Additional Health Concerns Assessment Noted Time PHQ-9 Depression Total Score: 14 023 9:40 AM EDT documented as of this encounter Care Teams Corporate Treasury Analyst Relationship Specialty Start Date End Date Bobbi Ricks ANP [address] [place] [address] PCP - General Family Medicine 03/08/21 Jing Brooks PharmD [address] [place] [address] Pharmacist Internal Medicine 03/24/24 documented as of this encounter
--- OUTSIDE RECORDS SUMMARY | 2024-09-18 11:54 | XMS_ITS | Encounter Summary ---
Author Organization [employer] Address [address] [place] [address] 7t [place] [address] Care Team Providers Care Curator Name Role Phone Bobbi Ricks Primary Care Provider [phone] Jing Brooks PharmD Unavailable [phone] Encounter Details Date Type Department Care Team (Late st Contact Info) Description 08/14/2022 Orders Only [facility] PEDS [address] [place], [place] [phone] Ayse Barrientos LPN Social History Tobacco Use Types Packs/Day Years Used Date Smoking Tobacco: Never Assessed Sex and Gender Information Value Date Recorded Sex Assigned at Male 05/28/2022 10:19 AM EDT Legal Sex Male 10:19 AM EDT Gender Identity Male 05/28/2022 10:19 AM EDT Sexual Orientation Straight 05/28/2022 10 :19 AM EDT documented as of this encounter Plan of Treatment Upcoming Encounters Date Type Department Care Team (Late st Contact Info) Description 09/23/2024 2:00 PM EST Medication Management [facility] MEDICINE [address] [place] [address] Jing Brooks, PharmD [address] [place] [address] 10/16/2024 10:30 AM EDT Office Visit [facility] OPTOMETRY [address] [place] [address] Faye Quinn, OD [address] [place] [address] 10/26/2024 11:00 AM EDT Office Visit [facility] MEDICINE [address] [place] [address] Bobbi Ricks ANP [address] [place] [address] documented as of this encounter Visit Diagnoses Not on filedocumented in this encounter Care Teams Curator Relationship Specialty Start Date End Date Bobbi Ricks ANP [address] [place] [address] PCP - General Family Medicine 03/08/21 Jing Brooks, Julia [address] [place] [address] Pharmacist Internal Medicine 03/24/24 documented as of this encounter
--- OUTSIDE RECORDS SUMMARY | 2024-09-18 11:54 | XMS_ITS | Encounter Summary ---
Author Organization [employer] Address [address] [place] [address] 7t [place] [address] Care Team Providers Care Warehouse Assembly Worker Name Role Phone Bobbi Ricks Primary Care Provider [phone] Jing Brooks PharmD Unavailable [phone] Encounter Details Date Type Department Care Team (Late Contact Info) Description 10/02/2022 Orders Only [facility] [address] [place], [place] [phone] Ayse Barrientos LPN Social History Tobacco Use [...] suspected to have Coronavirus/COVID-19? No / Unsure 10/03/2022 10:25 AM EST documented as of this encounter Plan of Treatment Upcoming Encounters Date Type Department Care Team (Late Contact Info) Description 09/23/2024 2:00 PM EST Medication Management [facility] [address] [place], [place] [phone] Jing Brooks, PharmD 230 [place], [place] [phone] 10/16/2024 10:30 AM EDT Office Visit [facility] [address] [place] [address] Faye Quinn, OD [address] [place] [address] 10/26/2024 11:00 AM EDT Office Visit [facility] [address] [place] [address] Bobbi Ricks ANP [address] [place] [address] documented as of this encounter Visit Diagnoses Not on filedocumented in this encounter Care Teams Warehouse Assembly Worker Relationship Specialty Start Date End Date Bobbi Ricks ANP [address] [place] [address] PCP - General Family Medicine 03/08/21 Jing Brooks PharmD [address] [place] [address] Pharmacist Internal Medicine 03/24/24 documented as of this encounter
--- OUTSIDE RECORDS SUMMARY | 2024-09-18 11:54 | XMS_ITS | Encounter Summary ---
Author Organization [employer] Address [address] [facility] 7t [place] [address] Care Team Providers Care Potato Loader Name Role Phone Bobbi Ricks ELAINA Primary Care Provider [phone] Jing Brooks PharmD Unavailable [phone] Encounter Details Date Type Department Care Team (Late st Contact Info) Description 09/11/2024 Telephone [facility] MED[facility] 230 [place] [address] Jing Brooks, PharmD 230 [place] [address] Social History Tobacco Use Types Packs/Day Years [...] encounter Miscellaneous Notes * Telephone Encounter - Jing Brooks PharmD - 09/11/2024 4:49 PM EST Pharmacy [facility] spoke with patient who reports nonadherence to ozempic since [place] and plans to further discuss at follow up CDTM visit before restarting (09/23/24). documented in this encounter Plan of Treatment Upcoming Encounters Date Type Department Care Team (Late st Contact Info) Description 09/23/2024 2:00 PM EST Medication Management [facility] MED[facility] [address] [place] [address] Jing Brooks PharmD 230 [place] [address] 10/16/2024 10:30 AM EDT Office Visit [facility] OPTOMETRY [address] [place] [address] Faye Quinn, OD [address] [place] [address] 10/26/2024 11:00 AM EDT Office Visit [facility] MEDICINE [address] [place] [address] Bobbi Ricks ANP [address] [place] [address] documented as of this encounter Goals Goal [...] documented as of this encounter Care Teams Potato Loader Relationship Specialty Start Date End Date Bobbi Ricks ANP [address] [place] [address] PCP - General Family Medicine 03/08/21 Jing Brooks PharmD 230 [place] [address] Pharmacist Internal Medicine 03/24/24 documented as of this encounter
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
--- OUTSIDE RECORDS SUMMARY | 2024-09-18 11:54 | XMS_ITS | Data Portability ---
Author Organization [employer] Address [address] [place] [phone] Care Team Providers Care Fishing Game Warden Name Role Phone ALIYAH GILLIAM Primary Care Provider HIM CCA OTHER Assessment Encounter Date Assessment Date Assessment LastModified by Organization Details LastModified Time 12/13/2023 12/13/2023 Mr. Steve Caceres is a 68yoM w/ a PmHx of BPH, DM2, CKD, HTN who is seen today for further evaluation of dysuria. Mr. Caceres reports that for the past three days he has had dysuria with increasing nocturia. He endorses some burning/stinging when he urinates but states that it is only noticable at night. He denies fevers/chills, malodorous urine, CVA tenderness, nausea or vomiting. He reports that he was reluctant to take his augmentin that had been prescribed after a recent dental surgery because he was worried about his kidneys. He is also on solumedrol and reports that his blood sugar was high today at 350. VSS. Applications Processor on site reports no acute distress. POC glucose 415 and POC UA with 1+ ketones. Planned for 1L IVF and POC labs. Solumedrol appears to be prescribed for back pain/neuropathy symptoms and he is on day 2 of the prescription. Recommended stopping solumedrol. He is not on insulin at home. POC labs with a glucose of 356, AG 13, CO2 26, Cr of 1.3 (at baseline, Cr 1.35 from nephrology visit 11/24). Reassuringly not in significant DKA. Anticipate improvement in hyperglycemia with cessation of steroids. Recommended following up with his PCP next week to make sure his blood sugar and nocturia are improving, Urine culture not sent as patient is on antibiotics and suspicion for overlying UTI low---presentati on more c/w nocturia in the s/o hyperglycemia in a patient with BPH. Primary team, Mr Morris would benefit from follow up blood sugar checks in the next week to make sure he's improving. [email or web address] Not available 12/13/2023 15:33:41 Plan of Treatment Reminders Order Date Submit Date Provider Last Modified By Organization Details Last Modified Time Details Appointments None recorded. Lab BMP, serum or plasma 2023 [facility], [address] [place] [address], [id number], 4 18:27:34 hemoglobin + hematocrit, blood 2023 024 [facility], [address] [place] [address], [id number], 4 18:28:18 Referral None recorded. Procedures None recorded. Surgeries None recorded. Imaging electrocard iogram 2023 [facility], [address] [place] [address], [id number], 4 18:26:51 Medication Orders ketorolac 15 mg/mL injection solution 2023 024 [facility], [address] [place] [address], [id number], 4 18:21:13 sodium chloride 0.9 % intravenous solution 2023 024 [facility], [address] [place] [address], [id number], 4 18:21:13 metoclopram amanda 5 mg/mL injection solution 2023 [facility], [address] [place] [address], [id number], 4 18:21:13 Patient TargetsNo targets recorded. Patient InstructionsNo instructions recorded. Reason for Referral None Reported. Results Created Date Observation Date Name Description Value Unit Range Abnormal Flag Note LastModifiedBy Organization Detail LastModifiedTime 12/20/19 24 12/20/2023 hemog lobin + hemat ocrit , blood Hemoglobin 12.5 Not Available [facility] [address] [place] [address], [id number], 12/20/2023 18:27:51 12/20/19 24 12/20/2023 hemog lobin + hemat ocrit , blood Hematocrit 37 Not Available [facility] [address] [place] [address], [id number], 12/20/2023 18:27:51 12/20/19 24 12/20/2023 BMP, serum or plasm a BUN 15 Not Available [facility] [address], [id number], 12/20/2023 17:47:01 12/20/19 24 12/20/2023 BMP, serum or plasm a Ca 1.15 Not Available [facility] [address], [id number], 12/20/2023 17:47:01 12/20/19 24 12/20/2023 BMP, serum or plasm a CI- 108 Not Available [facility] [address], [address], 12/20/2023 17:47:01 12/20/19 24 12/20/2023 BMP, serum or plasm a CRE 1.22 Not Available [facility] [address], [address], 12/20/2023 17:47:01 12/20/19 24 12/20/2023 BMP, serum or plasm a GLU 193 Not Available [facility] [address], [address], 12/20/2023 17:47:01 12/20/19 24 12/20/2023 BMP, serum or plasm a K+ 5.4 Not Available [facility] [address], [phone], 12/20/2023 17:47:01 12/20/19 24 12/20/2023 BMP, serum or plasm a Na+ 143 Not Available [facility] [address], [address], 12/20/2023 17:47:01 12/20/19 24 12/20/2023 BMP, serum or plasm a tCO2 26 Not Available [facility] [address], [address], 12/20/2023 17:47:01 12/20/19 24 12/20/2023 elect neptali diogr am No observ ation record ed. [address], [id number], 12/20/2023 18:26:50 Result Notes None recorded. Procedures Surgical History None recorded. Imaging Results Imaging Date Name Status LastModified by Organization Details LastModified Time 12/20/2023 electrocardiogram completed [address], [phone], 12/20/2023 18:26:50 Procedure Notes None recorded. Medical Equipment None Reported. Medications Name Sig Start Date Stop Date Status Note LastModified by Organization Details LastModified Time medbox status USE DIRECTED active Not Available Not Available No t Available ketorolac 15 mg/mL injection solution Inject 15 mg every 6 hours by intramuscul ar route. 2023 active Not Available Not Available Not Avai lable amoxicillin 500 mg capsule TAKE 1 CAPSULE BY MOUTH EVERY 8 HOURS FOR 10 DAYS active Not Available Not Available No t Available metformin 500 mg tablet TAKE 1 TABLET BY MOUTH TWICE DAILY IN THE MORNING AND IN THE EVENING WITH FOOD active Not Available Not Available No t Available atorvastatin 80 mg tablet TAKE 1 TABLET BY MOUTH AT BEDTIME active Not Available Not Available No t Available acetaminophe n 325 mg tablet TAKE 2 TABLETS BY MOUTH EVERY 6 HOURS NEEDED FOR MILD PAIN active Not Available Not Available No t Available metocloprami de 5 mg/mL injection solution Take 10 mg by injection route. 2023 active Not Available Not Available Not Avai lable tizanidine 2 mg tablet TAKE 1 TO 2 TABLETS BY MOUTH EVERY 6 HOURS AND AT BEDTIME NEEDED FOR MUSCLE SPASMS active Not Available Not Available No t Available ibuprofen 800 mg tablet TAKE 1 TABLET BY MOUTH EVERY 8 HOURS FOR PAIN active Not Available Not Available No t Available atenolol 100 mg tablet TAKE 1 TABLET BY MOUTH EVERY EVENING active Not Available Not Available No t Available hydralazine 25 mg tablet TAKE 1 TABLET BY MOUTH THREE TIMES DAILY IN THE MORNING, EVENING, AND BEDTIME active Not Available Not Available Not Available melatonin 3 mg tablet TAKE 2 TABLETS BY MOUTH EVERY DAY AT BEDTIME NEEDED FOR SLEEP. TAKE 60 - 90 MINUTES BEFORE BEDTIME active Not Available Not Available No t Available acetaminophe n 300 mg-codeine 30 mg tablet TAKE 1 TABLET BY MOUTH EVERY TWELVE HOURS NEEDED FOR PAIN active Not Available Not Available No t Available sulfamethoxa zole 800 mg-trimethop rim 160 mg tablet TAKE 1 TABLET BY MOUTH TWICE DAILY FOR 10 DAYS active Not Available Not Available No t Available aspirin 81 mg tablet,delay ed release TAKE 1 TABLET BY MOUTH EVERY MORNING active Not Available Not Available No t Available spironolacto ne 25 mg tablet TAKE 1 TABLET BY MOUTH EVERY MORNING active Not Available Not Available No t Available acetaminophe n ER 650 mg tablet,exten ded release TAKE 1 TABLET BY MOUTH EVERY 8 HOURS NEEDED FOR MILD PAIN UP TO 10 DAYS active Not Available Not Available No t Available isosorbide mononitrate ER 120 mg tablet,exten ded release 24 hr TAKE 1 TABLET BY MOUTH EVERY EVENING active Not Available Not Available No t Available amitriptylin e 25 mg tablet TAKE 1 TABLET BY MOUTH AT BEDTIME active Not Available Not Available No t Available tamsulosin 0.4 mg capsule TAKE 1 CAPSULE BY MOUTH EVERY EVENING active Not Available Not Available No t Available amitriptylin e 10 mg tablet TAKE 1 TABLET BY MOUTH AT BEDTIME active Not Available Not Available No t Available doxycycline monohydrate 100 mg capsule TAKE 1 CAPSULE BY MOUTH TWICE DAILY active Not Available Not Available No t Available hydralazine 100 mg tablet TAKE 1 TABLET BY MOUTH THREE TIMES DAILY IN THE MORNING, EVENING, AND BEDTIME active Not Available Not Available Not Available pantoprazole 40 mg tablet,delay ed release TAKE 1 TABLET BY MOUTH EVERY MORNING FOR HEARTBURN active Not Available Not Available No t Available levothyroxin e 125 mcg tablet TAKE 1 TABLET BY MOUTH EVERY MORNING active Not Available Not Available No t Available ibuprofen 200 mg tablet TAKE 2 TABLETS BY MOUTH EVERY 8 HOURS NEEDED FOR MILD PAIN active Not Available Not Available No t Available docusate sodium 100 mg capsule TAKE 1 CAPSULE BY MOUTH TWICE DAILY NEEDED FOR CONSTIPATIO N active Not Available Not Available No t Available gabapentin 300 mg capsule TAKE 1 CAPSULE BY MOUTH TWICE DAILY IN THE MORNING AND IN THE EVENING and TAKE 2 CAPSULES BY MOUTH EVERY DAY AT BEDTIME active Not Available Not Available No t Available folic acid 1 mg tablet TAKE 1 TABLET BY MOUTH EVERY MORNING ( VITAMIN) active Not Available Not Available No t Available sodium chloride 0.9 % intravenous solution Inject 1000 mL by intravenous route. 2023 active Not Available Not Available Not Avai lable methylpredni solone 4 mg tablets in a dose pack TAKE DIRECTED ON PACKAGE active Not Available Not Available No t Available lisinopril 40 mg tablet TAKE 1 TABLET BY MOUTH EVERY MORNING active Not Available Not Available No t Available doxycycline hyclate 100 mg tablet TAKE 1 TABLET BY MOUTH TWICE DAILY FOR 10 DAYS TAKE WITH A FULL GLASS OF WATER Do not lie down for 30 minutes after taking active Not Available Not Available No t Available amoxicillin 875 mg-potassium clavulanate 125 mg tablet TAKE 1 TABLET BY MOUTH EVERY TWELVE HOURS FOR 10 DAYS active Not Available Not Available No t Available Alcohol Prep Pads USE TWICE DAILY active Not Available Not Available No t Available nitrofuranto in monohydrate/ macrocrystal s 100 mg capsule TAKE 1 CAPSULE BY MOUTH TWICE DAILY FOR 5 DAYS active Not Available Not Available No t Available ranolazine ER 500 mg tablet,exten ded release,12 hr TAKE 1 TABLET BY MOUTH TWICE DAILY IN THE MORNING AND AT BEDTIME active Not Available Not Available No t Available Januvia 100 mg tablet TAKE 1 TABLET BY MOUTH EVERY MORNING active Not Available Not Available No t Available FreeStyle Lite Strips TEST BLOOD SUGAR THREE TIMES DAILY active Not Available Not Available Not Available FreeStyle [place] Lite kit USE DIRECTED TO TEST BLOOD SUGAR THREE TIMES DAILY active Not Available Not Available Not Available blood pressure test kit-large cuff USE DIRECTED IN THE MORNING active Not Available Not Available Not Available Vitamin D3 50 mcg (2,000 unit) capsule TAKE 1 CAPSULE BY MOUTH EVERY MORNING active Not Available Not Available No t Available Easy Touch Twist Lancets 33 gauge TEST BLOOD SUGAR THREE TIMES DAILY active Not Available Not Available Not Available Vitals Date Recorded Respiratory rate Heart rate Body temperature Oxygen saturation Oxygen saturation in Arterial blood by Pulse oximetry Systolic blood pressure Diastolic blood pressure Provider Name and Address Organization Details Last Updated DateTime 4 16 /min 64 /min 98.4 [degF] 98 % 98 % 170 mm[Hg] 70 mm[Hg] Not Available [employer] 4 17:57:34 Date Recorded Respiratory rate Body temperature Heart rate Oxygen saturation Oxygen saturation in Arterial blood by Pulse oximetry Systolic blood pressure Diastolic blood pressure Provider Name and Address Organization Details Last Updated DateTime 4 20 /min 98.5 [degF] 56 /min 100 % 100 % 216 mm[Hg] 83 mm[Hg] Not Available [employer] 4 17:35:22 Social History None recorded. Functional Status None recorded. Mental Status None recorded. Family History Nothing Reported. Medical History No medical history recorded. Past Encounters Encounter ID Performer Location Encounter Start Date Encounter Closed Date Diagnosis/Indication Diagnosis SNOMED-CT Code Diagnosis ICD10 Code Diagnosis Note [id number] Radha Lindsay MD [facility] [address] [place] [phone] 12/13/2023 14:33:21 03/24/2024 14:12:34 Hyperglycemia 09765135 R73.9 Nocturia 960598703 R35.1 [id number] BECCA NEUMANN MD [facility] [address] [place] [id number] 12/20/2023 17:35:20 12/20/2023 21:28:56 Headache 43441308 R51.9 Evaluation in the field was performed by my manifest/order organizer print orders colleague, as noted above, I provided real-time direction and supervisio n for this visit. The evaluation revealed 68yoM w/ a PmHx of BPH, DM2, CKD, HTN on Atenolol 100 mg daily, Hydralazin e 25 mg TID, isosorbide 120 mg daily, Hypothyroi dism on Levothyrox ine 125 mcg daily with complains of headache that started this morning . Pt reports taking Tylenol but did not help. He was seen by [facility] today and his BP was well controlled 130/64 but HR was on the 50's, so visit by us was requested .Pt denies CP, SOB, N/V, blurred vision, but complains of ongoing headache.W as found to have elevated BP. Reports that he only took Hydralazin e 1 tablet this morning, and no other meds afraid of low BP. Denies that this is the worse headache of his lifeNo neuro deficits.B MP was done that showed K 5.4 , Creat 1.22 , BUN 12ECG with sinus bradycardi a. No AVB, no ST-T changes. QTc 390 msec Impression :Headache Plan:-NS 1 L IV x1-Reglan 10 mg IV x1-Ketorol ac 15 mg IV x1 - pt aware not to take any NSAIDs today-Pt advised to take Hydralazin e 50 mg PO Primary care, consider: Please consider decreasing the Atenolol dose.May need addition of other antihypert ensive med if BP elevatedPl ease check TSH to r/o hypothyroi dism as the etiology of his bradycardi a. Dispositio n: We discussed the diagnostic uncertaint y of home visits and the risk associated with this. In this case, the patient and I felt this to be an acceptable and reasonable amount of risk given the benefit of avoiding an ED visit. We discussed the need to seek care urgently/e mergently in the setting of any new or worsening serious symptoms, particular ly worsening headache, CP, SOB, palpitatio ns, elevated BP, HR <50, N/V or any other concerns. Increased blood pressure [id number] R03.0 Pt had skipped the dose of Hydralazin e this afternoon, thinking that might have caused low HR. Advised to take 50 mg ( 2 tablet now ) and restart in am as prescribed 25 mg TID ). Pt was advised to decrease his atenolol dose to 50 mg given bradicardi a. Atenolol should not effect his BP much , but consider other antihypert ensive meds if elevated BP and ongoing bradycardi a. BP before manifest/order organizer print orders left 196/70. Headache has resolved. Red flags discussed with the patient Bradycardia [id number] R00 .1 ECG with sinus bradicardi a. No AVB noted on the ECG .Pt advised to decrease the dose of Atenolol to 50 mg daily from 100 mg . hypothyroi dism that is not well controlled is another possible etiology of his bradicardi a. Will need TSH check by PCP and adjustment of the dose of levothyrox ine if needed. Pt advised to take it with empty stomach at least 1 hrs before eating anything in the morning, including coffee. Health Concerns Section Related Observation LastModified by Organization Detai ls LastModified Time None Recorded Concern Status LastModified by Organization Details LastModified Time None Recorded Advance Directives Directive None Recorded Payers Encounter Date Sequence Insurance Name Policy Number Policy Denson Covered Member ID Denson Member ID Guarantor Name 12/13/2023 1 [facility] - DOS ON OR AFTER 2022 - DUAL ELIGIBLE - [employer] AND ONE CARE (MEDICARE REPLACEMENT/AD VANTAGE - HMO) Steve Morris [id number] Stevecyndy Caceres 12/20/2023 1 [facility] - DOS ON OR AFTER 2022 - DUAL ELIGIBLE - [employer] AND ONE CARE (MEDICARE REPLACEMENT/AD VANTAGE - HMO) Steve Morris [id number] Steve Caceres Notes Date Note Type Note Provider Name and Address Organization Details Recorded Time 12/13/2023 text/html [facility] Nurse Triage Notes (Jane Kennedy): Reason For Request: Painful urination Chief Complaints: UTI/Pyelonephritis PMH: Diabetes Allergies: No Known Comments: Comfort care RN calling up to report symptoms relayed to her by member of painful urination, Denies any other complaints.PMH: DM, MT, BPH, recent dental work with sutures in place and member on Augmentin and Prednisone currently.hx of being admitted to hospital for hypercalcemia and increased BUN/CREAT. Current med list @ members home, unable to state all of them. no blood thinners or diuretics Referral placed from the info provided by RN calling inSpanish speaking only memberThe [facility] RN Applications Processor POC Test Results from Heather Cotto Blood Glucose Measurement (1) [17:59] Blood Glucose: 461 mg/dL iSTAT Chem8+ (2) [17:59] Na: 138 mEq/L K: 4.8 mEq/L Cl: 105 mEq/L iCa: 1.22 mmol/L TCO2: 26 mmol/L Glu: 358 mg/dL BUN: 27 mg/dL Crea: 1.3 mg/dL Hct: 34 % Hb: 11.6 g/dL A ...................... ...................... ...................... ...................... ...................... ...................... ......... Applications Processor Note From Heather Cotto: [facility] Applications Processor Ann-MarieDaniela Cotto SC6 dispatched to a [facility] for a 68 yom C/O pain on urination. Upon arrival, the pt was ambulatory without difficulty, in no apparent distress. He stated that he recently had some teeth removed, and was given augmentin and PO solu-medrol, which he had been taking for 2 days. He reported pain on urination and increased urinary frequency X2 days, but only at night. He denied any abnormal color or smell, and denied any difficulty urinating. He denied fever, STEPHENS, cough, sore throat, CP, SOB, abd pain, N/V/D. No CVA tenderness. Blood sugar 461. Urine dip acquired. [facility] consulted; #20 IV placed in his left AC, BMP acquired and pt was given 1 L LR. Pt was informed that the steroids likely increased his blood sugar, which could have caused his increased urination. He was instructed to DC the steroids, and call [facility] in the AM if his blood sugar was still high (pt did not use insulin). Pt verbalized understanding and agreed. Red flags discussed at length. ...................... ...................... ...................... ...................... ...................... ...................... ......... Disposition: Fulfilled Radha Lindsay MD [address] [facility],[address], [place], [address], [employer] 03/23/2024 19:41:30 12/20/2023 text/html HPI: NITINA RN called with concerns of patient with noted HR at 50. Reports that normally is 70-90 and was HR 77 on Saturday. Patietn with earlier headache. BP 130/64On multiple meds for evening Isorsibide , atenolol, hydralazine ...................... ...................... ...................... ...................... ...................... ...................... ......... [facility] Nurse Triage Notes (Ruth Friend): Comments: CRC RN did not require any additional information to process this visit. Applications Processor POC Test Results from [facility] EKG (1) [17:51] EKG test performed. Attachments uploaded as part of this test result can be found under Documents section. Applications Processor POC Test Results from [facility] epoc (1) [18:13] pH: 7.372 pH units pCO2: 47.1 mmHg pO2: 31.3 mmHg Na: 143 mmol/L K: 5.4 mmol/L iCa: 1.15 mmol/L Cl: 108 mmol/L TCO2: 26.8 mEq/L Hct: 73 % Hb: 12.5 g/dL Glu: 193 mg/dL Lac: 0.81 mmol/L Cr: 1.22 mg/dL BUN: 15 mg/dL A Attachments uploaded as part of this test result can be found under Documents section. ...................... ...................... ...................... ...................... ...................... ...................... ......... Applications Processor Note From [facility]: 68 y/o male found ambulatory on scene presenting with a c/c of a headache. Pt presented awake and alert x4 with a patent airway, adequate respirations and a strong radial pulse. GCS 15. Skin warm and dry. The pt was Slovak speaking only. The pt reported a 6/10 left sided headache that started this morning. He also reported a home nurse came and instructed him to stop taking a few of his medications. The BP was very hypertensive initially. Neuro exam was normal. The pt did not voice any other medical complaints. The pt denied any current chest pain, shortness of breath, nausea, vomiting, diarrhea, fever, chills, dizziness or lightheadedness. The [facility] was consulted and ordered POC blood work, 1L of NS, 15mg of IV toradol, 10mg of IV regalin, an EKG, and 50mg of the pts own hydralazine. A 20g IV was established in the pts left AC. All medication was administered to the pt without issue. 1L of NS was administered without any issue. EKG was obtained and was unremarkable. The pt was also instructed cut his atenolol in half and take 1 half a day for a week, take his levothyroxine 1 hour before he eats, and continue taking bis hydralazine as normal. The pt was advised to call back if there was any changes in his condition or if he did not get better. Other red flags discussed with the pt. End run. ...................... ...................... ...................... ...................... ...................... ...................... ......... Disposition: Fulfilled BECCA NEUMANN MD [address] [facility],[address], [place], [address], BARAK LOPEZ 12/20/2023 19:23:39
--- OUTSIDE RECORDS SUMMARY | 2024-09-18 11:54 | XMS_ITS | Encounter Summary ---
Author Organization [employer] Address [address] [facility] [address] [place] [address] Care Team Providers Care Spikemaking Supervisor Name Role Phone Bobbi Ricks Primary Care Provider [phone] Jing Brooks PharmD Unavailable [phone] Reason for Visit * Reason Comments Med Refill Encounter Details Date Type Department Care Team ([facility] st Contact Info) Description 06/23/2024 Refill [facility] [address] [place], [place] [phone] Bobbi Ricks ANP [address] [place] [address] Mixed hyperlipidemia Social History Tobacco Use Types [...] 2:00 PM EST Medication Management [facility] [address] [place] [phone] Jing Brooks, PharmD [address] [place] [address] 10/16/2024 10:30 AM EDT Office Visit [facility] OPTOMETRY [address] [place] [address] TarkaFaye, OD [address] [place] [address] 10/26/2024 11:00 AM EDT Office Visit [facility] [address] [place] [phone] Bobbi Ricks ANP [address] [place] [address] documented as of this encounter Goals Goal Patient Goal Type Associated Problems Recent Progress Patient-Stated? Author Blood Pressure < 140/90 Blood Pressure 157/80(2024 10:10 AM EST) No Piers-Shelley lugo, Jing, PharmD Hemoglobin A1c < 7 Result Component 9.4( 4:08 PM EST) No Rishis-Alma Rosalessa, PharmD documented as of this encounter Visit Diagnoses Diagnosis Mixed hyperlipidemia documented in this encounter Additional Health Concerns Assessment Noted Time PHQ-9 Depression Total Score: 14 023 9:40 AM EDT documented as of this encounter Care Teams Spikemaking Supervisor Relationship Specialty Start Date End Date Bobbi Ricks ANP [address] [place] [address] PCP - General Family Medicine 03/08/21 Jing Brooks PharmD [address] [place] [address] Pharmacist Internal Medicine 03/24/24 documented as of this encounter
--- OUTSIDE RECORDS SUMMARY | 2024-09-18 11:54 | XMS_ITS | Encounter Summary ---
Author Organization [employer], [employer] Address [address] [facility] 7t [place] [address] Care Team Providers Care Cigar Packing Examiner Name Role Phone Bobbi Ricks ELAINA Primary Care Provider [phone] Jing Brooks PharmD Unavailable [phone]- [phone] Reason for Visit * Reason Comments Nasal Congestion Fatigue Dry Mouth Encounter Details Date Type Department Care Team ([facility] st Contact Info) Description 09/18/2024 10:00 AM EST Office Visit [facility] [address] [place], [place] [phone] Shortness of breath (Primary Dx); Dry mouth; Elevated blood pressure reading in office with diagnosis of hypertension; Runny nose Social History Tobacco Use Types Packs/Day Years [...] AM EDT documented as of this encounter Last Filed Vital Signs Vital Sign Reading Time Taken Comments Blood Pressure 157/80 09/18/2024 10:10 AM EST Pulse 72 09/18/2024 9:29 AM EST Temperature 36.9 ??C (98.4 ??F) 09/18/2024 9:29 AM ES T Respiratory Rate 18 09/18/2024 9:29 AM EST Oxygen Saturation 96% 09/18/2024 9:29 AM EST Inhaled Oxygen Concentration - - Weight - - Height - - Body Mass Index - - documented in this encounter Plan of Treatment Upcoming Encounters Date Type Department Care Team (Late st Contact Info) Description 09/23/2024 2:00 PM EST Medication Management [facility] MEDICINE [address] [place] [address] Jing Brooks, PharmD 230 [place] [address] 10/16/2024 10:30 AM EDT Office Visit [facility] OPTOMETRY [address] [place] [address] Faye Quinn, OD 267 [place] [address] 10/26/2024 11:00 AM EDT Office Visit [facility] MEDICINE [address] [place] [address] Bobbi Ricks, ELAINA [address] [place] [address] documented as of this encounter Goals Goal Patient Goal Type Associated Problems Recent Progress Patient-Stated? Author Blood Pressure < 140/90 Blood Pressure 157/80(2024 10:10 AM EST) No Jing Smith PharmEssence Hemoglobin A1c < 7 Result Component 9.4( 4 4:08 PM EST) No Jing Smith PharmD documented as of this encounter Procedures Procedure Name Priority Date/Time Associated Diagnosis Comments XR CHEST 2 VIEWS Routine 09/18/2024 10:4 9 AM EST Shortness of breath POCT INFLUENZA B (ID NOW RAPID MOLECULAR) Routine 09/18/2024 10:17 AM EST Shortness of breath POCT INFLUENZA A (ID NOW RAPID MOLECULAR) Routine 09/18/2024 10:17 AM EST Shortness of breath POCT COVID-19 AG SHAH ID NOW Routine 09/18/2024 10:17 AM EST Shortness of breath documented in this encounter Results * XR Chest 2 Views (09/18/2024 10:49 AM EST) Anatomical Region Laterality Modality Chest Radiographic Liz ging 09/18/2024 10:4 9 AM EST Narrative 09/18/2024 11:15 AM EST ?[facility] ?[address] ?[place] [address] ?XRay Report ? Signed ? Patient: Caceres,Steve ?MR#: [id number] ?? 724 ? : 1955 ?Acct:[id number] ? Age/Sex: 69 / M ?ADM Date: //25 ? Loc: HO.HHCX ? Attending : Usha Appraalphonse ? Ordering Physician: Usha Atkins ?? Date of Service: 09/18/24 ?? Procedure(s): XR chest 2V ?? Accession Number(s): [id number] ? cc: Usha Atkins ? EXAMINATION: ?? [...] DD/ 1049 ? TD/TT: 09/18/24 1057 ? Metal Casting Trades Worker: ? Procedure Note Merritt, Image - 09/18/2024 [place] [address] XRay Report Signed Patient: Patel Caceres#: [id number] : 5Acct:[id number] Age/Sex: 69 / MADM Date: 09/18/24 Loc: HO.HHCX Attending Dr: Usha Atkins Ordering Physician: Usha Atkins Date of Service: 09/18/24 Procedure(s): XR chest 2V Accession Number(s): [id number] cc: Usha Atkins EXAMINATION: XR CHEST CLINICAL [...] 09/18/24 1112 DD/ 1049 TD/TT: 09/18/24 1057 Metal Casting Trades Worker: us Usha Atkins DISTRICT CLAIMS MANAGER IMG XR PROCEDURES Final Result * POCT COVID-19 Ag Shah ID NOW (09/18/2024 10:17 AM EST) Pathologist [facility] Coronavirus Antigen PCR Negative Negative, Indeterminate, None Detected, Invalid, Specimen unsatisfactory for evaluation, Weakly Positive Swab 09/18/2024 10:1 7 AM EST Usha Atkins DISTRICT CLAIMS MANAGER POINT OF CARE TEST ENTER/EDIT O RDERABLES Final Result * Influenza A (ID NOW Rapid Molecular) (09/18/2024 10:17 AM EST) Pathologist [facility] Influenza A Negative Negative, Indeterminate [facility] Swab 09/18/2024 10:1 7 AM EST Usha Atkins DISTRICT CLAIMS MANAGER POINT OF CARE TEST ENTER/EDIT O RDERABLES Final Result Performing Organization Address [facility] Co de Phone Number [facility] [address] [place] [phone] * Influenza B (ID NOW Rapid Molecular) (09/18/2024 10:17 AM EST) Pathologist [facility] Influenza B Negative Negative, Indeterminate [facility] Swab 09/18/2024 10:1 7 AM EST Usha Atkins DISTRICT CLAIMS MANAGER POINT OF CARE TEST ENTER/EDIT O RDERABLES Final Result Performing Organization Address [facility] Co de Phone Number [facility] [address] [place] [phone] documented in this encounter Visit Diagnoses Diagnosis Shortness of breath- Primary Dry mouth Disturbance of salivary secretion Elevated blood pressure reading in office with diagnosis of hypertension Runny nose Other diseases of nasal cavity and sinuses documented in this encounter Additional Health Concerns Assessment Noted Time PHQ-9 Depression Total Score: 14 023 9:40 AM EDT documented as of this encounter Care Teams Cigar Packing Examiner Relationship Specialty Start Date End Date Bobbi Ricks ANP [address] [place] [address] PCP - General Family Medicine 03/08/21 Jing Brooks PharmD [address] [place] [address] Pharmacist Internal Medicine 03/24/24 documented as of this encounter
--- OUTSIDE RECORDS SUMMARY | 2024-09-18 11:54 | XMS_ITS | Encounter Summary ---
Author Organization [employer] Address [address] [facility] 7t [place] [address] Care Team Providers Care Lightning Rod Erector Name Role Phone Bobbi Ricks Primary Care Provider [phone] Jing Brooks PharmD Unavailable [phone] Reason for Visit * Reason Onset Date Comments Hospital Follow-up 11/29/2023 Encounter Details Date Type Department Care Team ([facility] st Contact Info) Description 11/29/2023 Telephone [facility] MEDICINE [address] [place] [address] Bobbi Ricks ANP 230 [place] [address] Hospital Follow-up Social History Tobacco Use Types Packs/Day Years [...] encounter Miscellaneous Notes * Telephone Encounter - ELAINA Dsouza - 12/06/2023 12:45 PM EDT Yes, if it can be 30min visit * Telephone Encounter - Caty Enciso RN - 12/06/2023 10:43 AM EDT TC placed to pt to schedule a HDF f/u after recent admission to [facility] for [place] on 11/26/23. Pt is stable at home and has no current concerns. An appt was already scheduled for pt with Bobbi Ricks on 12/19/23. No other HDF slots open in the month of November. Pt wants to keep 12/18 appt for HDF as well. * Telephone Encounter - Luisito Rodriguez - 11/29/2023 3:21 PM EDT Tc from pt requesting a HDF appt. Hospital: [facility] Date of admission: 11/25 Discharge date: 11/28 Diagnosed: Acute kidney injury documented in this encounter Plan of Treatment Upcoming Encounters Date Type Department Care Team (Late st Contact Info) Description 09/23/2024 2:00 PM EST Medication Management [facility] MED[facility]INE [address] [place] [address] Jing Brooks PharmD [address] [place] [address] 10/16/2024 10:30 AM EDT Office Visit [facility] OPTOMETRY [address] [place] [address] TarFaye sauceda, OD [address] [place] [address] 10/26/2024 11:00 AM EDT Office Visit [facility] MED[facility]INE [address] [place] [address] Bobbi Ricks ANP 230 [place] [address] documented as of this encounter Goals Goal Patient Goal Type Associated Problems Recent Progress Patient-Stated? Author Blood Pressure < 140/90 Blood Pressure 157/80(2024 10:10 AM EST) No Jing Smith, PharmD Hemoglobin A1c < 7 Result Component 9.4( 4:08 PM EST) No Jing Smith PharmD documented as of this encounter Visit Diagnoses Not on filedocumented in this encounter Additional Health Concerns Assessment Noted Time PHQ-9 Depression Total Score: 14 023 9:40 AM EDT documented as of this encounter Care Teams Lightning Rod Erector Relationship Specialty Start Date End Date Bobbi Ricks ANP [address] [place] [address] PCP - General Family Medicine 03/08/21 Jing Brooks, PharmD [address] [place] [address] Pharmacist Internal Medicine 03/24/24 documented as of this encounter
--- OUTSIDE RECORDS SUMMARY | 2024-09-18 11:54 | XMS_ITS | Encounter Summary ---
Author Organization [employer] Address [address] [facility] 7t [place] [address] Care Team Providers Care Bottle And Glass Inspector Name Role Phone Bobbi Ricks Primary Care Provider [phone] Jing Brooks PharmD Unavailable [phone]- [phone] Reason for Visit * Reason Comments Med Refill Encounter Details Date Type Department Care Team ([facility] st Contact Info) Description 11/01/2023 Refill [facility] CH[facility] MED & PEDS [address] [place], [place] [phone] Bobbi Ricks ANP [address] [facility] [place] [address] Pain Social History Tobacco Use Types Packs/Day Years [...] Description 09/23/2024 2:00 PM EST Medication Management [facility] MEDICINE [address] [place] [phone] RishisJing Escobar, PharmD [address] [place] [address] 10/16/2024 10:30 AM EDT Office Visit [facility] OPTOMETRY [address] [place] [address] Faye Quinn, OD [address] [place] [address] 10/26/2024 11:00 AM EDT Office Visit [facility] MEDICINE [address] [place] [address] Bobbi Ricks ANP [address] [place] [address] documented as of this encounter Goals Goal Patient Goal Type Associated Problems Recent Progress Patient-Stated? Author Blood Pressure < 140/90 Blood Pressure 157/80(2024 10:10 AM EST) No Piers-Gambl e, Jing, PharmD Hemoglobin A1c < 7 Result Component 9.4( 4:08 PM EST) No Piers-Gambl e, Jing, PharmD documented as of this encounter Visit Diagnoses Diagnosis Pain Generalized pain documented in this encounter Additional Health Concerns Assessment Noted Time PHQ-9 Depression Total Score: 14 023 9:40 AM EDT documented as of this encounter Care Teams Bottle And Glass Inspector Relationship Specialty Start Date End Date Bobbi Ricks ANP [address] [place] [address] PCP - General Family Medicine 03/08/21 Jing Brooks PharmD [address] [place] [address] Pharmacist Internal Medicine 03/24/24 documented as of this encounter
--- OUTSIDE RECORDS SUMMARY | 2024-09-18 11:54 | XMS_ITS | Encounter Summary ---
Author Organization [employer] Address [address] [facility] 7t [place] [address] Care Team Providers Care Technical Specialist Cytogenetics Name Role Phone Bobbi Ricks Primary Care Provider [phone] Jing Brooks PharmD Unavailable [phone]- [phone] Reason for Visit * Reason Comments Med Refill Encounter Details Date Type Department Care Team ([facility] st Contact Info) Description 10/30/2023 Refill [facility] CHC MED & PEDS [address] [place], [place] [phone] Bobbi Ricks ANP 230 [facility] [place] [address] Pain Social History Tobacco Use Types Packs/Day [...] Description 09/23/2024 2:00 PM EST Medication Management [facility] MEDICINE [address] [place] [address] RishisJing Escobar, PharmD 230 [place] [address] 10/16/2024 10:30 AM EDT Office Visit [facility] OPTOMETRY [address] [place] [address] Faye Quinn, OD 267 [place] [address] 10/26/2024 11:00 AM EDT Office Visit [facility] MEDICINE [address] [place] [address] Bobbi Ricks ANP 230 [place] [address] documented as of this encounter Goals Goal [...] documented as of this encounter Care Teams Technical Specialist Cytogenetics Relationship Specialty Start Date End Date Bobbi Ricks ANP 230 [place] [address] PCP - General Family Medicine 03/08/21 Jing Brooks PharmD 230 [place] [address] Pharmacist Internal Medicine 03/24/24 documented as of this encounter
--- OUTSIDE RECORDS SUMMARY | 2024-09-18 11:54 | XMS_ITS | Encounter Summary ---
Author Organization [employer] [facility] [employer] Address [address] [place] [address] 7t [place] [address] Care Team Providers Care Plastic Manager Name Role Phone Bobbi Ricks Primary Care Provider [phone] Jing Brooks PharmD Unavailable [phone] Encounter Details Date Type Department Care Team (Late st Contact Info) Description 12/21/2022 Orders Only [facility] CHC MED & PEDS [address] [place], [place] [phone] Ayse Barrientos LPN Social History Tobacco Use [...] suspected to have Coronavirus/COVID-19? No / Unsure 12/19/2022 8:37 AM EDT documented as of this encounter Plan of Treatment Upcoming Encounters Date Type Department Care Team (Late Contact Info) Description 09/23/2024 2:00 PM EST Medication Management [facility] MEDICINE 230 [place], [place] [phone] Jing Brooks, PharmD 230 [place] [address] 10/16/2024 10:30 AM EDT Office Visit [facility] OPTOMETRY [address] [place] [address] Faye Quinn, OD [address] [place] [address] 10/26/2024 11:00 AM EDT Office Visit [facility] MEDICINE [address] [place] [address] Bobbi Ricks ANP [address] [place] [address] documented as of this encounter Visit Diagnoses Not on filedocumented in this encounter Additional Health Concerns Assessment Noted Time PHQ-9 Depression Total Score: 14 023 9:40 AM EDT documented as of this encounter Care Teams Plastic Manager Relationship Specialty Start Date End Date Bobbi Ricks ANP [address] [place] [address] PCP - General Family Medicine 03/08/21 Jing Brooks PharmD [address] [place] [address] Pharmacist Internal Medicine 03/24/24 documented as of this encounter
== END 2024-09-18 10:50 | disposition home or self-care (01) ==
LOC: HO.HHCX 10:49
PROVIDERS: Visit Provider Nurse Practitioner
DX: R06.02 Shortness of breath (principal)
CPT/HCPCS: 71046

== ENCOUNTER → 2024-09-18 10:49 | Outpatient (BNV) | payer OTHER, SELFPAY | PROVIDERS: Visit Provider Radiology Diagnostic Radiology | DX: R06.02 Shortness of breath (principal) | CPT/HCPCS: 71046 ==

== ENCOUNTER 2024-09-23 14:56 | Outpatient (REF) | payer OTHER, SELFPAY ==
[2024-09-23 16:49] LABS: Anion Gap 13 (12-20); Blood Urea Nitrogen 19 mg/dL (9-16); Calcium 9.4 mg/dL (8.4-10.2); Carbon Dioxide 27 mmol/L (22-29); Chloride 102 mmol/L (96-108); Estimated Glomerular Filt Rate 46; Glucose Random 562 mg/dL (60-115); Potassium 3.8 mmol/L (3.3-5.1); Sodium 138 mmol/L (135-145)
[2024-09-23 17:01] LABS: Creatinine Urine 33.43 mg/dL; Microalbum/Creatinine Ratio Ur 41.8 ug/mg cr (<30)
--- OUTSIDE RECORDS SUMMARY | 2024-09-23 18:23 | XMS_ITS | Encounter Summary ---
Author Organization [employer] [facility] [employer] Address [address] [facility] 7t [place] [address] Care Team Providers Care Hall Clerk Name Role Phone Bobbi Ricks Primary Care Provider [phone] Jing Brooks PharmD Unavailable [phone]- [phone] Reason for Visit * Reason Onset Date Comments Paperwork/Forms 09/23/2024 Encounter Details Date Type Department Care Team ([facility] st Contact Info) Description 09/23/2024 Telephone [facility] [address] [place], [place] [phone] Bobbi Ricks ANP [address] [place] [address] Paperwork/Forms Social History Tobacco Use Types Packs/Day Years [...] encounter Miscellaneous Notes * Telephone Encounter - Mary Ann Wallace RN - 09/23/2024 2:50 PM EST Received verbal order for pt to get [facility] for medication management 1x weekly for Ozempic injection. Prepared order and placed on PCP desk for signature. documented in this encounter Plan of Treatment Upcoming Encounters Date Type Department Care Team (Late st Contact Info) Description 09/30/2024 3:00 PM EST Medication Management [facility] MEDICINE [address] [place] [address] Jing Brooks, PharmD [address] [place] [address] 10/16/2024 10:30 AM EDT Office Visit [facility] OPTOMETRY [address] [place] [address] Faye Quinn, OD 267 [place] [address] 10/26/2024 11:00 AM EDT Office Visit [facility] MEDICINE [address] [place] [address] Bobbi Ricks, ANP [address] [place] [address] documented as of this encounter Goals Goal Patient Goal Type Associated Problems Recent Progress Patient-Stated? Author Blood Pressure < 140/90 Blood Pressure 152/68(2024 2:36 PM EST) No Jing Smith PharmD Hemoglobin A1c < 7 Result Component 9.6( 2:10 PM EST) No Jing Smith PharmD documented as of this encounter Visit Diagnoses Not on filedocumented in this encounter Additional Health Concerns Assessment Noted Time PHQ-9 Depression Total Score: 14 023 9:40 AM EDT documented as of this encounter Care Teams Hall Clerk Relationship Specialty Start Date End Date Bobbi Ricks ANP [address] [place] [address] PCP - General Family Medicine 03/08/21 Jing Brooks PharmD [address] [place] [address] Pharmacist Internal Medicine 03/24/24 documented as of this encounter
--- OUTSIDE RECORDS SUMMARY | 2024-09-23 18:23 | XMS_ITS | Encounter Summary ---
Author Organization [employer] Address 75 [facility] 7t [place] [address] Care Team Providers Care Metaphysicist Name Role Phone Bobbi Ricks Primary Care Provider [phone] Jing Brooks PharmD Unavailable [phone] Encounter Details Date Type Department Care Team (Late st Contact Info) Description 10/21/2023 Orders Only [facility] MEDICINE [address] [place] [address] Bobbi Ricks ANP [address] [place] [address] Social History Tobacco Use Types Packs/Day Years [...] Description 09/30/2024 3:00 PM EST Medication Management [facility] MEDICINE [address] [place] [address] Jing Brooks, PharmD 230 [place] [address] 10/16/2024 10:30 AM EDT Office Visit [facility] OPTOMETRY [address] [place] [address] Tarka, Faye, OD [address] [place] [address] 10/26/2024 11:00 AM EDT Office Visit [facility] MEDICINE [address] [place] [address] Bobbi Ricks ANP [address] [place] [address] documented as of this encounter Goals Goal Patient Goal Type Associated Problems Recent Progress Patient-Stated? Author Blood Pressure < 140/90 Blood Pressure 152/68(2024 2:36 PM EST) No Rishis-Alma Rosalessa, PharmD Hemoglobin A1c < 7 Result Component 9.6( 2:10 PM EST) No Rishis-Tamirl Jing lugo, PharmD documented as of this encounter Visit Diagnoses Not on filedocumented in this encounter Additional Health Concerns Assessment Noted Time PHQ-9 Depression Total Score: 14 023 9:40 AM EDT documented as of this encounter Care Teams Metaphysicist Relationship Specialty Start Date End Date Bobbi Ricks ANP [address] [place] [address] PCP - General Family Medicine 03/08/21 Jing Brooks PharmD [address] [place] [address] Pharmacist Internal Medicine 03/24/24 documented as of this encounter
--- OUTSIDE RECORDS SUMMARY | 2024-09-23 18:23 | XMS_ITS | Encounter Summary ---
Author Organization [employer] Address [address] [place] [address] 7t [place] [address] Care Team Providers Care Granite Polisher Machine Name Role Phone Bobbi Ricks Primary Care Provider [phone] Jing Brooks PharmD Unavailable [phone] Encounter Details Date Type Department Care Team (Late Contact Info) Description 12/21/2022 Orders Only [facility] CHC MED & PEDS [address] [place], [place] [phone] Ayse Barrientos LPN Social History Tobacco Use [...] Description 09/30/2024 3:00 PM EST Medication Management [facility] MEDICINE [address] [place], [place] [phone] Jing Brooks, PharmD 230 [place] [address] 10/16/2024 10:30 AM EDT Office Visit [facility] OPTOMETRY [address] [place] [address] Faye Quinn, OD 267 [place] [address] 10/26/2024 11:00 AM EDT Office Visit [facility] MEDICINE [address] [place] [address] Bobbi Ricks ANP [address] [place] [address] documented as of this encounter Visit Diagnoses Not on filedocumented in this encounter Additional Health Concerns Assessment Noted Time PHQ-9 Depression Total Score: 14 023 9:40 AM EDT documented as of this encounter Care Teams Granite Polisher Machine Relationship Specialty Start Date End Date Bobbi Ricks ANP [address] [place] [address] PCP - General Family Medicine 03/08/21 Jing Brooks PharmD [address] [place] [address] Pharmacist Internal Medicine 03/24/24 documented as of this encounter
--- OUTSIDE RECORDS SUMMARY | 2024-09-23 18:23 | XMS_ITS | Encounter Summary ---
Author Organization [employer] Address 75 [facility] 7t [place] [address] Care Team Providers Care Mountain Or Glacier Guide Name Role Phone Bobbi Ricks ELAINA Primary Care Provider [phone] Jing Brooks PharmD Unavailable [phone]- [phone] Reason for Visit * Reason Onset Date Comments Results 09/18/2024 Encounter Details Date Type Department Care Team ([facility] st Contact Info) Description 09/18/2024 Telephone [facility] [address] [place], [place] [phone] Usha Atkins NP 230 [place] [address] Results Social History Tobacco Use Types Packs/Day Years [...] Encounter - Gracy Frey RN - 09/18/2024 1:10 PM EST Call placed to patient to inform him his chest x-ray was read as normal. Advised that albuterol wassent to the pharmacy. Patient verbalizes understanding and agreement with plan of care at this time. ClassBug interpretor ID #[id number] Ayse ----- Message from Usha Atkins sent at 09/18/2024 12:51 PM EST ----- Please inform patient of normal X-ray results. I sent albuterol inhaler to pharmacy to trial if anyimprovement in his symptom. Thanks documented in this encounter Plan of Treatment Upcoming Encounters Date Type Department Care Team (Late st Contact Info) Description 09/30/2024 3:00 PM EST Medication Management [facility] MEDICINE [address] [place] [address] Jing Brooks, PharmD 230 [place] [address] 10/16/2024 10:30 AM EDT Office Visit [facility] OPTOMETRY [address] [place] [address] Faye Quinn, OD [address] [place] [address] 10/26/2024 11:00 AM EDT Office Visit [facility] MEDICINE [address] [place] [address] Bobbi Ricks ANP [address] [place] [address] documented as of this encounter Goals Goal Patient Goal Type Associated Problems Recent Progress Patient-Stated? Author Blood Pressure < 140/90 Blood Pressure 152/68(2024 2:36 PM EST) No Jing Smith PharmEssence Hemoglobin A1c < 7 Result Component 9.6( 2:10 PM EST) No iJng Smith PharmD documented as of this encounter Visit Diagnoses Not on filedocumented in this encounter Additional Health Concerns Assessment Noted Time PHQ-9 Depression Total Score: 14 023 9:40 AM EDT documented as of this encounter Care Teams Mountain Or Glacier Guide Relationship Specialty Start Date End Date Bobbi Ricks ANP [address] [place] [address] PCP - General Family Medicine 03/08/21 Jing Brooks PharmD [address] [place] [address] Pharmacist Internal Medicine 03/24/24 documented as of this encounter
--- OUTSIDE RECORDS SUMMARY | 2024-09-23 18:23 | XMS_ITS | Encounter Summary ---
Author Organization [employer] Address [address] [facility] 7t [place] [address] Care Team Providers Care Veterinary Parasitologist Name Role Phone Bobbi Ricks Primary Care Provider [phone] Jing Brooks PharmD Unavailable [phone] Encounter Details Date Type Department Care Team (Latest Contact Info) Description 09/23/2024 Travel Social History Tobacco Use Types Packs/Day Years [...] Description 09/30/2024 3:00 PM EST Medication Management [facility] MEDICINE [address] [place] [address] Piers-Cerda, Jing, PharmD [address] [place] [address] 10/16/2024 10:30 AM EDT Office Visit [facility] OPTOMETRY [address] [place] [address] Tarka, Faye, OD [address] [place] [address] 10/26/2024 11:00 AM EDT Office Visit [facility] MEDICINE [address] [place] [address] Bobbi Ricks ANP 230 [place] [address] documented as of this encounter Goals Goal Patient Goal Type Associated Problems Recent Progress Patient-Stated? Author Blood Pressure < 140/90 Blood Pressure 152/68(2024 2:36 PM EST) No Piers-Gambl e, Jing, PharmD Hemoglobin A1c < 7 Result Component 9.6( 2:10 PM EST) No Piers-Gambl e, Jing, PharmD documented as of this encounter Visit Diagnoses Not on filedocumented in this encounter Additional Health Concerns Assessment Noted Time PHQ-9 Depression Total Score: 14 023 9:40 AM EDT documented as of this encounter Care Teams Veterinary Parasitologist Relationship Specialty Start Date End Date Bobbi Ricks ANP [address] [place] [address] PCP - General Family Medicine 8/11/21 Jing Brooks, Julia [address] [place] [address] Pharmacist Internal Medicine 03/24/24 documented as of this encounter
--- OUTSIDE RECORDS SUMMARY | 2024-09-23 18:23 | XMS_ITS | Encounter Summary ---
Author Organization [employer] Address 75 [facility] 7t [place] [address] Care Team Providers Care Construction Technician Name Role Phone Bobbi Ricks Primary Care Provider [phone] Jing Brooks PharmD Unavailable [phone] Reason for Visit * Reason Comments Med Refill Encounter Details Date Type Department Care Team ([facility] st Contact Info) Description 11/01/2023 Refill [facility] MED & PEDS [address] [place], [place] [phone] Bobbi Ricks ANP 230 [facility] [place] [address] Pain Social History Tobacco Use Types Packs/Day [...] Description 09/30/2024 3:00 PM EST Medication Management [facility] MEDICINE [address] [place] [address] Piers-Alma Cerdasa, PharmD 230 [place] [address] 10/16/2024 10:30 AM EDT Office Visit [facility] OPTOMETRY [address] [place] [address] Faye Quinn, OD 267 [place] [address] 10/26/2024 11:00 AM EDT Office Visit [facility] MEDICINE [address] [place] [address] Bobbi Ricks ANP 230 [place] [address] documented as of this encounter Goals Goal [...] documented as of this encounter Care Teams Construction Technician Relationship Specialty Start Date End Date Bobbi Ricks ANP 230 [place] [address] PCP - General Family Medicine 03/08/21 Jing Brooks PharmD 230 [place] [address] Pharmacist Internal Medicine 03/24/24 documented as of this encounter
--- OUTSIDE RECORDS SUMMARY | 2024-09-23 18:23 | XMS_ITS | Clinical Summary ---
Author Organization [facility] Address [address] [facility] [address] 0 [place] [address] Phone Care Team Providers Care [employer] Compliance Internship Name Role Phone Bobbi Ricks NP Primary [...] patient's age to complete this topic Insurance [facility] MCR ([id number]) [facility] DUAL SNP ([id number]) Care Teams [employer] Compliance Internship Relationship Specialty Start Date End Date Bobbi Ricks NP PCP - General Nurse Practitioner 07/04/23
--- OUTSIDE RECORDS SUMMARY | 2024-09-23 18:23 | XMS_ITS | Encounter Summary ---
Author Organization [employer] Address 75 [facility] 7t [place] [address] Care Team Providers Care Director Of Quality Improvement Name Role Phone Bobbi Ricks Primary Care Provider [phone] Jing Brooks PharmD Unavailable [phone] Encounter Details Date Type Department Care Team (Late st Contact Info) Description 09/23/2024 Orders Only [facility] MEDICINE [address] [place] [address] Bobbi Ricks ANP 230 [place] [address] Social History Tobacco Use Types Packs/Day Years [...] Description 09/30/2024 3:00 PM EST Medication Management [facility] MEDICINE [address] [place] [address] Jing Brooks, PharmD 230 [place] [address] 10/16/2024 10:30 AM EDT Office Visit [facility] OPTOMETRY [address] [place] [address] Tarka, Faye, OD 267 [place] [address] 10/26/2024 11:00 AM EDT Office Visit [facility] MEDICINE [address] [place] [address] Bobbi Ricks, ANP 230 [place] [address] documented as of this encounter Goals Goal Patient Goal Type Associated Problems Recent Progress Patient-Stated? Author Blood Pressure < 140/90 Blood Pressure 152/68(2024 2:36 PM EST) No Jing Smith, PharmEssence Hemoglobin A1c < 7 Result Component 9.6( 2:10 PM EST) No Jing Smith PharmD documented as of this encounter Procedures Procedure Name Priority Date/Time Associated Diagnosis Comments ALBUMIN, RANDOM URINE W/CREATININE Routine 09/23/2024 2:58 PM EST BASIC METABOLIC PANEL Routine 09/23/2024 2:58 PM EST documented in this encounter Results * (ABNORMAL) Albumin, Random Urine W/Creatinine (09/23/2024 2:58 PM EST) Creatinine, Urine 33.43 mg/dL [facility] Microalbumin Urine 14.0 mg/L H [facility] Microalbum Creatinine Ratio Ur 41.8(H) <30 ug/mg cr [facility] Comment:Albumin/Creatinine R atio Reference Ranges: Normal: < 30 ug/mg creatinine Microalbuminuria: 30 - 300 ug/mg creatinineClinical Albuminuria: > 300 ug/mg creatinine 09/23/2024 2:58 PM EST 09/23/2024 4:20 PM EST Bobbi Ricks [facility] URINE ORDERABLES Final Resul t Performing Organization Address City/State/[facility] Co de Phone Number [facility] [address] [place] [phone] * (ABNORMAL) Basic Metabolic Panel (09/23/2024 2:58 PM EST) Sodium 138 135 - 145 mmol/L [facility] Potassium 3.8 3.3 - 5.1 mmol/L [facility] Chloride 102 96 - 108 mmol/L [facility] Carbon Dioxide 27 22 - 29 mmol/L [facility] Anion Gap 13 12 - 20 [facility] Urea Nitrogen (BUN) 19(H) 9 - 16 mg/dL [facility] Creatinine, Serum 1.52(H) 0.5 - 1.4 mg/dL [facility] Estimated Glomerular Filt Rate 46 [facility] Comment:Chronic Kidney Disea se: Estimated GFR < 60 mL/min/1.50p5Yhwgru Kidney Disease: Estimated GFR < 15 mL/min/1.73m2 Glucose 562(HH) 60 - 115 mg/dL [facility] Comment:Critical value for t est(GLU): Results called to and readback by: AIDE Castillo RN Person calling: [employer] Date:09/23/24 Time: 1648 Calcium 9.4 8.4 - 10.2 mg/dL [facility] 09/23/2024 2:58 PM EST 09/23/2024 4:15 PM EST us Bobbi Ricks ANP LAB BLOOD ORDERABLES Final Resul t [facility] [address] [place] [address] [phone] documented in this encounter Visit Diagnoses Not on filedocumented in this encounter Additional Health Concerns Assessment Noted Time PHQ-9 Depression Total Score: 14 023 9:40 AM EDT documented as of this encounter Care Teams Director Of Quality Improvement Relationship Specialty Start Date End Date Bobbi Ricks ANP 230 [place] [address] PCP - General Family Medicine 03/08/21 Jing Brooks, JasminD 230 [place] [address] Pharmacist Internal Medicine 03/24/24 documented as of this encounter
--- OUTSIDE RECORDS SUMMARY | 2024-09-23 18:23 | XMS_ITS | Encounter Summary ---
Author Organization [employer] Address 75 [facility] 7t [place] [address] Care Team Providers Care Supervisor Fish Bait Processing Name Role Phone Bobbi Ricks Primary Care Provider [phone] Jing Brooks PharmD Unavailable [phone] Reason for Visit * Reason Onset Date Comments Critical lab 09/23/2024 Encounter Details Date Type Department Care Team (Late st Contact Info) Description 09/23/[address] [facility] MEDICINE [address] [place] [address] Bobbi Ricks ANP 230 [place] [address] Critical lab Social History Tobacco Use Types Packs/Day Years [...] * Telephone Encounter - ELAINA Dsouza - 09/23/2024 5:20 PM EST Pt declined to come to [facility] as directed, agreed to come 1st thing tomorrow. Please outreach pt if he does not come to [place] tomorrow () * Telephone Encounter - Shelbie Wilkinson RN - 09/23/2024 4:54 PM EST Incoming call from Mckenna ,at the [facility] lab at 4;46 pm today . Mckenna reported the pt's Glucose is 562 drawn today at 2:58 pm . This result was called to the pt's PCP Bobbi DELANEY at 4:52pm . Bobbi stated they were reviewing the pt's labs at this time . Will route this message to pt's PCP for review. documented in this encounter Plan of Treatment Upcoming Encounters Date Type Department Care Team (Late st Contact Info) Description 09/30/2024 3:00 PM EST Medication Management [facility] MEDICINE [address] [place], [place] [phone] Jing Brooks, PharmD 230 [place] [address] 10/16/2024 10:30 AM EDT Office Visit [facility] OPTOMETRY [address] [place] [address] Faye Quinn, OD 267 [place] [address] 10/26/2024 11:00 AM EDT Office Visit [facility] MEDICINE [address] [place] [address] Bobbi Ricks ANP [address] [place] [address] documented as of this encounter Goals Goal [...] documented as of this encounter Care Teams Supervisor Fish Bait Processing Relationship Specialty Start Date End Date Bobbi Ricks ANP [address] [place] [address] PCP - General Family Medicine 03/08/21 Jing Brooks PharmD [address] [place] [address] Pharmacist Internal Medicine 03/24/24 documented as of this encounter
--- OUTSIDE RECORDS SUMMARY | 2024-09-23 18:23 | XMS_ITS | Data Portability ---
Author Organization [employer] Address [address] [place] [address] Care Team Providers Care Cover Stripper Name Role Phone ALIYAH GILLIAM Primary Care Provider [phone] HIM CCA OTHER Assessment Encounter Date Assessment Date Assessment LastModified by Organization Details LastModified Time 12/13/2023 12/13/2023 Mr. Steve Ccaeres is a 68yoM w/ a PmHx of [...] sugar was high today at 350. VSS. [employer] Crm Developer on site reports no acute distress. POC [...] recorded. Lab BMP, serum or plasma 2023 [facility], [address] [place] [address], [id number], 4 18:27:34 hemoglobin + hematocrit, blood 2023 024 [facility], [address] [place] [address], [id number], 4 18:28:18 Referral None recorded. Procedures None recorded. Surgeries None recorded. Imaging electrocard iogram 2023 [facility], [address] [place] [address], [id number], 4 18:26:51 Medication Orders ketorolac 15 mg/mL injection solution 2023 024 [facility], [address] [place] [address], [id number], 4 18:21:13 sodium chloride 0.9 % intravenous solution 2023 024 [facility], [address] [place] [address], [id number], 4 18:21:13 metoclopram amanda 5 mg/mL injection solution 2023 [facility], [address] [place] [address], [id number], 4 18:21:13 Patient TargetsNo targets recorded. Patient InstructionsNo instructions recorded. Reason for Referral None Reported. Results Created Date Observation Date Name Description Value Unit Range Abnormal Flag Note LastModifiedBy Organization Detail LastModifiedTime 12/20/19 24 12/20/2023 hemog lobin + hemat ocrit , blood Hemoglobin 12.5 Not Available [facility] [address] [place] [address], [id number], 12/20/2023 18:27:51 12/20/19 24 12/20/2023 hemog lobin + hemat ocrit , blood Hematocrit 37 Not Available [facility] [address] [place] [address], [id number], 12/20/2023 18:27:51 12/20/19 24 12/20/2023 BMP, serum or plasm a BUN 15 Not Available [facility] [address], [address], 12/20/2023 17:47:01 12/20/19 24 12/20/2023 BMP, serum or plasm a Ca 1.15 Not Available [facility] [address], [address], 12/20/2023 17:47:01 12/20/19 24 12/20/2023 BMP, serum or plasm a CI- 108 Not Available [facility] [address], [address], 12/20/2023 17:47:01 12/20/19 24 12/20/2023 BMP, serum or plasm a CRE 1.22 Not Available [facility] [address], [address], 12/20/2023 17:47:01 12/20/19 24 12/20/2023 BMP, serum or plasm a GLU 193 Not Available [facility] [address], [address], 12/20/2023 17:47:01 12/20/19 24 12/20/2023 BMP, serum or plasm a K+ 5.4 Not Available [facility] [address], [address], 12/20/2023 17:47:01 12/20/19 24 12/20/2023 BMP, serum or plasm a Na+ 143 Not Available [facility] [address], [address], 12/20/2023 17:47:01 12/20/19 24 12/20/2023 BMP, serum or plasm a tCO2 26 Not Available [facility] [address], [address], 12/20/2023 17:47:01 12/20/19 24 12/20/2023 elect neptali diogr am No observ ation record ed. [address], [address], 12/20/2023 18:26:50 Result Notes None recorded. Procedures Surgical History None recorded. Imaging Results Imaging Date Name Status LastModified by Organization Details LastModified Time 12/20/2023 electrocardiogram completed [address], [address], 12/20/2023 18:26:50 Procedure Notes None recorded. Medical [...] Not Available Not Available Not Available FreeStyle Irwin Lite kit USE DIRECTED TO TEST BLOOD [...] % 170 mm[Hg] 70 mm[Hg] Not Available [employer] - production 4 17:57:34 Date Recorded Respiratory rate Body temperature Heart rate Oxygen saturation Oxygen saturation in Arterial blood by Pulse oximetry Systolic blood pressure Diastolic blood pressure Provider Name and Address Organization Details Last Updated DateTime 4 20 /min 98.5 [degF] 56 /min 100 % 100 % 216 mm[Hg] 83 mm[Hg] Not Available [employer] - production 4 17:35:22 Social History None recorded. Functional Status None recorded. Mental Status None recorded. Family History Nothing Reported. Medical History No medical history recorded. Past Encounters Encounter ID Performer Location Encounter Start Date Encounter Closed Date Diagnosis/Indication Diagnosis SNOMED-CT Code Diagnosis ICD10 Code Diagnosis Note [id number] Radha Lindsay MD [facility] [address] [place] [phone] 12/13/2023 14:33:21 03/24/2024 14:12:34 Hyperglycemia 55998896 R73.9 Nocturia 200260511 R35.1 [id number] BECCA NEUMANN MD [facility] [address] [place] [phone] 12/20/2023 17:35:20 12/20/2023 21:28:56 Headache 90132591 R51.9 Evaluation in the field was performed by my communication specialist colleague, as noted above, I provided real-time [...] or any other concerns. Increased blood pressure 76409629 R03.0 Pt had skipped the dose of [...] BP and ongoing bradycardi a. BP before communication specialist left 196/70. Headache has resolved. Red flags discussed with the patient Bradycardia 06124854 R00 .1 ECG with sinus bradicardi a. [...] Denson Member ID Guarantor Name 12/13/2023 1 [facility] - DOS ON OR AFTER 2022 - DUAL ELIGIBLE - GROUP HOME OPTIONS AND ONE CARE (MEDICARE REPLACEMENT/AD VANTAGE - HMO) Steve Morris [id number] Stevecyndy Caceres 12/20/2023 1 [facility] - DOS ON OR AFTER 2022 - DUAL ELIGIBLE - GROUP HOME OPTIONS AND ONE CARE (MEDICARE REPLACEMENT/AD VANTAGE - HMO) Steve Morris [id number] Steve Caceres Notes Date Note Type Note [...] provided by RN calling inSpanish speaking only [facility] RN [employer] Crm Developer POC Test Results from Heather Cotto Blood Glucose Measurement (1) [17:59] Blood Glucose: 461 mg/dL iSTAT Chem8+ (2) [17:59] Na: 138 mEq/L K: 4.8 mEq/L Cl: 105 mEq/L iCa: 1.22 mmol/L TCO2: 26 mmol/L Glu: 358 mg/dL BUN: 27 mg/dL Crea: 1.3 mg/dL Hct: 34 % Hb: 11.6 g/dL A ...................... ...................... ...................... ...................... ...................... ...................... ......... Microsoft Crm Developer Note From Heather Cotto: [facility] Microsoft Crm Developer Ann-MarieDaniela Cotto SC6 dispatched [facility] a [facility] for a 68 yom C/O pain [...] tenderness. Blood sugar 461. Urine dip acquired. [facility] consulted; #20 IV placed in his left [...] ......... Disposition: Fulfilled Radha Lindsay MD [address] [facility], [place], [address], [employer] Liaison - [employer] 03/23/2024 19:41:30 12/20/2023 text/html HPI: NITINA RN [...] any additional information to process this visit. [employer] Crm Developer POC Test Results from [facility] EKG (1) [17:51] EKG test performed. Attachments uploaded as part of this test result can be found under Documents section. [employer] Crm Developer POC Test Results from [facility] epoc (1) [18:13] pH: 7.372 pH [...] ...................... ...................... ...................... ...................... ...................... ...................... ......... [employer] Crm Developer Note From [facility]: 68 y/o male found ambulatory on scene presenting with a c/c of a headache. Pt presented awake and alert x4 with a patent airway, adequate respirations and a strong radial pulse. GCS 15. Skin warm and dry. The pt was Citizen Of [place] speaking only. The pt reported a 6/10 [...] diarrhea, fever, chills, dizziness or lightheadedness. The [facility] was consulted and ordered POC blood work, [...] ......... Disposition: Fulfilled BECCA NEUMANN MD [address] [facility], [place], [address], BARAK LOPEZ 12/20/2023 19:23:39
--- OUTSIDE RECORDS SUMMARY | 2024-09-23 18:23 | XMS_ITS | Encounter Summary ---
Author Organization [employer] Address [address] [facility] 7t [place] [address] Care Team Providers Care Appetizer Packer Name Role Phone Bobbi Ricks Primary Care Provider [phone] iJng Brooks PharmD Unavailable [phone] Reason for Visit * Reason Comments Med Refill Encounter Details Date Type Department Care Team ([facility] st Contact Info) Description 11/12/2023 Refill [facility] MEDICINE 230 [place], [place] [phone] Bobbi Ricks ANP 230 [place] [address] Essential hypertension Social History Tobacco Use Types [...] Description 09/30/2024 3:00 PM EST Medication Management [facility] MEDICINE 230 [place] [address] Jing Brooks, PharmD 230 [place] [address] 10/16/2024 10:30 AM EDT Office Visit [facility] OPTOMETRY [address] [place] [address] Tarka, Faye, OD 267 [place] [address] 10/26/2024 11:00 AM EDT Office Visit [facility] MEDICINE 230 [place] [address] Bobbi Ricks ANP [address] [place] [address] documented as of this encounter Goals Goal [...] documented as of this encounter Care Teams Appetizer Packer Relationship Specialty Start Date End Date Bobbi Ricks ANP [address] [place] [address] PCP - General Family Medicine 03/08/21 Jing Brooks PharmD 230 [place] [address] Pharmacist Internal Medicine 03/24/24 documented as of this encounter
--- OUTSIDE RECORDS SUMMARY | 2024-09-23 18:23 | XMS_ITS | Encounter Summary ---
Author Organization [facility] Address [address] [place] [address] 7t [place] [address] Care Team Providers Care Strategy Manager Name Role Phone Bobbi Ricks Primary Care Provider [phone] Jing Brooks PharmD Unavailable [phone] Reason for Visit * Reason Comments Med Refill Encounter Details Date Type Department Care Team (Late st Contact Info) Description 02/14/2023 Refill [facility] MEDICINE 230 [place] [address] Bobbi Ricks ANP 230 [place] [address] Hypertension associated with diabetes (CMS/HCC) Social History [...] Description 09/30/2024 3:00 PM EST Medication Management [facility] MEDICINE [address] [place] [address] Jing Brooks, PharmD 230 [place] [address] 10/16/2024 10:30 AM EDT Office Visit [facility] OPTOMETRY [address] [place] [address] Alankomal Faye, OD [address] [place] [address] 10/26/2024 11:00 AM EDT Office Visit [facility] MEDICINE 230 [place] [address] Bobbi Ricks ANP 230 [place] [address] documented as of this encounter Visit Diagnoses Diagnosis Hypertension associated with diabetes (CMS/HCC) (CMS/HCC) Unspecified essential hypertension documented in this encounter Additional Health Concerns Assessment Noted Time PHQ-9 Depression Total Score: 14 023 9:40 AM EDT documented as of this encounter Care Teams Strategy Manager Relationship Specialty Start Date End Date Bobbi Ricks ANP [address] [place] [address] PCP - General Family Medicine 03/08/21 Jing Brooks, Julia [address] [place] [address] Pharmacist Internal Medicine 03/24/24 documented as of this encounter
--- OUTSIDE RECORDS SUMMARY | 2024-09-23 18:23 | XMS_ITS | Encounter Summary ---
Author Organization [facility] Address [address] [place] [address] 7t [place] [address] Care Team Providers Care Hematologist Name Role Phone Bobbi Ricks Primary Care Provider [phone] Jing Brooks PharmD Unavailable Encounter Details Date Type Department Care Team (Late Contact Info) Description 03/18/2023 Orders Only [facility] MEDICINE [address] [place] [address] Vj Tolbert 230 [place] [address] Social History Tobacco Use Types Packs/Day Years [...] Description 09/30/2024 3:00 PM EST Medication Management [facility] MEDICINE [address] [place] [address] Jing Brooks, PharmD 230 [place], [place] [phone] 10/16/2024 10:30 AM EDT Office Visit [facility] OPTOMETRY [address] [place] [address] Faye Quinn, OD [address] [place] [address] 10/26/2024 11:00 AM EDT Office Visit [facility] MEDICINE 230 [place] [address] Bobbi Ricks ANP 230 [place] [address] documented as of this encounter Visit Diagnoses Not on filedocumented in this encounter Additional Health Concerns Assessment Noted Time PHQ-9 Depression Total Score: 14 023 9:40 AM EDT documented as of this encounter Care Teams Hematologist Relationship Specialty Start Date End Date Bobbi Ricks ANP [address] [place] [phone] PCP - General Family Medicine 03/08/21 Jing Brooks PharmD [address] [place] [address] Pharmacist Internal Medicine 03/24/24 documented as of this encounter
--- OUTSIDE RECORDS SUMMARY | 2024-09-23 18:23 | XMS_ITS | Encounter Summary ---
Author Organization [employer] Address [address] [facility] 7t [place] [address] Care Team Providers Care Lens Grinder And Polisher Name Role Phone Bobbi Ricks Primary Care Provider [phone] Jing Brooks PharmD Unavailable [phone] Reason for Visit * Reason Comments Med Refill Encounter Details Date Type Department Care Team ([facility] st Contact Info) Description 10/30/2023 Refill [facility] [address] [place], [place] [phone] Bobbi Ricks ANP [address] [facility] [place] [address] Pain Social History Tobacco Use Types Packs/Day [...] Description 09/30/2024 3:00 PM EST Medication Management [facility]INE [address] [place] [phone] Piers-Alma Cerdasa, PharmD [address] [place] [address] 10/16/2024 10:30 AM EDT Office Visit [facility] OPT[facility]RY [address] [place] [address] Faye Quinn, OD [address] [place] [address] 10/26/2024 11:00 AM EDT Office Visit [facility]INE [address] [place] [phone] Bobbi Ricks ANP [address] [place] [address] documented as of this encounter Goals Goal [...] documented as of this encounter Care Teams Lens Grinder And Polisher Relationship Specialty Start Date End Date Bobbi Ricks ANP [address] [place] [address] PCP - General Family Medicine 03/08/21 Jing Brooks PharmD [address] [place] [address] Pharmacist Internal Medicine 03/24/24 documented as of this encounter
--- OUTSIDE RECORDS SUMMARY | 2024-09-23 18:23 | XMS_ITS | Encounter Summary ---
Author Organization [employer] Address [address] [facility] [address]t [place] [address] Care Team Providers Care Career Discovery Teacher Name Role Phone Bobbi Ricks Primary Care Provider [phone] Jing Brooks PharmD Unavailable [phone] Encounter Details Date Type Department Care Team ([facility] st Contact Info) Description 09/23/2024 Telephone [facility] MED[facility]INE [address] [place] [address] Bobbi Ricks ANP [address] [place] [address] Social History Tobacco Use Types Packs/Day Years [...] Telephone Encounter - ELAINA Dsouza - 09/23/2024 5:28 PM EST Spoke with Pharm.DDaniela HOOKER regarding plan for diabetes and hypertension. Discussed adding backspironolactone at 12.5 mg daily, rx sent by [facility] pharmacist. We are hesitant to add back AZAM or ARBas although he needs renal protection his creatinine has still not returned to baseline after MT last year. He is on SGLT2i max dose. Potassium was within normal limits today. Glu was critical 562. 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 CGM PA for Yanni 3 isunderway. Feels fine. Declined offer for visit w/ PCP tomorrow. For diabetes will likely need to initiate long-acting insulin. Recommend Tresiba given duration of action and will need to be administered by VNA. VNA services requested earlier today and will ask team to follow-up to see if we can get that urgently underway as patient is unable to administer Ozempic or insulin given the absence of right hand. To team RN: Hi - can you please inquire with mann if he is willing to start basal insulin? And if so, can we get the VNA going urgently? Daily VNA and basal insulin may not need to be usp if his BG comes back down but for now would recommend. Please let me know if he agrees. Jing also rx'd spironolactone to start for his BP and will need repeat BMP next week. * Telephone Encounter - Jessi Gunter RN - 09/23/2024 5:03 PM EST T/C to pt via S Fitter Mechanic Kam per PCP request due to critical glucose 562 today to recommend that pt come to [facility] now for evaluation as pt is not able to administer insulin. Pt declines to come in today stating he is already going to bed. Counseled pt on dangers of uncontrolled hyperglycemia. Pt agrees to come to [facility] tomorrow morning for evaluation. documented in this encounter Plan of Treatment Upcoming Encounters Date Type Department Care Team (Late st Contact Info) Description 09/30/2024 3:00 PM EST Medication Management [facility] [address] [place] [address] Jing Brooks PharmD [address] [place] [address] 10/16/2024 10:30 AM EDT Office Visit [facility] OPTOMET[facility] [address] [place] [address] Faye Qunin, OD [address] [place] [address] 10/26/2024 11:00 AM EDT Office Visit [facility] [address] [place] [address] Bobbi Ricks ANP [address] [place] [address] documented as of this encounter Goals Goal [...] documented as of this encounter Care Teams Career Discovery Teacher Relationship Specialty Start Date End Date Bobbi Ricks ANP [address] [place] [address] PCP - General Family Medicine 03/08/21 Jing Brooks PharmD [address] [place] [address] Pharmacist Internal Medicine 03/24/24 documented as of this encounter
--- OUTSIDE RECORDS SUMMARY | 2024-09-23 18:24 | XMS_ITS | Encounter Summary ---
Author Organization [employer] Address [address] [place] [address] 7t [place] [address] Care Team Providers Care Housing Assistant Property Manager Name Role Phone Bobbi Ricks Primary Care Provider [phone] Jing Brooks PharmD Unavailable [phone] Encounter Details Date Type Department Care Team (Late Contact Info) Description 10/02/2022 Orders Only [facility] [address] [place], [place] [phone] Ayse Barrientos LPN Social History Tobacco Use [...] Department Care Team (Late Contact Info) Description 09/30/2024 3:00 PM EST Medication Management [facility] [address] [place], [place] [phone] Jing Brooks, PharmD [address] [place], [place] [phone] 10/16/2024 10:30 AM EDT Office Visit [facility] OPTOMETRY [address] [place] [address] Faye Quinn, OD [address] [place] [address] 10/26/2024 11:00 AM EDT Office Visit [facility] [address] [place] [address] Bobbi Ricks ANP [address] [place] [address] documented as of this encounter Visit Diagnoses Not on filedocumented in this encounter Care Teams Housing Assistant Property Manager Relationship Specialty Start Date End Date Bobbi Ricks ANP [address] [place] [address] PCP - General Family Medicine 03/08/21 Jing Brooks PharmD [address] [place] [address] Pharmacist Internal Medicine 03/24/24 documented as of this encounter
--- OUTSIDE RECORDS SUMMARY | 2024-09-23 18:24 | XMS_ITS | Encounter Summary ---
Author Organization [employer] Address [address] [facility] 7t [place] [address] Care Team Providers Care Industrial Sewer Name Role Phone Bobbi Ricks Primary Care Provider [phone] Jing Brooks PharmD Unavailable [phone] Encounter Details Date Type Department Care Team (Late st Contact Info) Description 09/08/2024 Orders Only [facility] [address] [place], [place] [phone] Bobbi Ricks ANP [address] [place] [address] Mixed hyperlipidemia Social History Tobacco Use Types [...] Description 09/30/2024 3:00 PM EST Medication Management [facility] [address] [place] [address] Jing Brooks, PharmD [address] [place] [address] 10/16/2024 10:30 AM EDT Office Visit [facility] [address] [place] [address] Tarka, Faye, OD [address] [place] [address] 10/26/2024 11:00 AM EDT Office Visit [facility] [address] [place] [phone] Bobbi Ricks ANP [address] [place] [address] documented as of this encounter Goals Goal Patient Goal Type Associated Problems Recent Progress Patient-Stated? Author Blood Pressure < 140/90 Blood Pressure 152/68(2024 2:36 PM EST) No Jing Smith, PharmEssence Hemoglobin A1c < 7 Result Component 9.6(02/26/202 5 2:10 PM EST) No Jing Smith PharmD documented as of this encounter Visit Diagnoses Diagnosis Mixed hyperlipidemia documented in this encounter Additional Health Concerns Assessment Noted Time PHQ-9 Depression Total Score: 14 023 9:40 AM EDT documented as of this encounter Care Teams Industrial Sewer Relationship Specialty Start Date End Date Bobbi Ricks ANP [address] [place] [address] PCP - General Family Medicine 03/08/21 Jing Brooks, JasminD [address] [place] [address] Pharmacist Internal Medicine 03/24/24 documented as of this encounter
--- OUTSIDE RECORDS SUMMARY | 2024-09-23 18:24 | XMS_ITS | Clinical Summary ---
Author Organization [employer] Address [address] [place] [address] 7t [place] [address] Care Team Providers Care Penciller Name Role Phone Bobbi Ricks Primary Care Provider [phone] Jing Brooks PharmD Unavailable [phone]- [phone] Allergies Active Allergy Reactions Criticality Noted Date [...] pe 2 diabetes mellitus with hyperlipidemia (CMS/HCC) ([facility]) 1 kit 3 times daily. 1 kit 024 Active TRUEplus Lancets 33G [facility] [place] BLOOD SUGAR THREE TIMES DAILY 100 each 11 024 Active Blood Pressure kitIndications:Es sential hypertension 1 kit Once per day. 1 kit 024 Active acetaminophen (Tylenol) 500 MG tablet Take 2 tablets (1,000 mg) by mouth every 6 (six) hours if needed for moderate pain or fever for up to 25 doses. 30 tablet 024 Active ammonium lactate (Amlactin Daily) 12 % lotionIndications :Type 2 diabetes mellitus with hyperlipidemia (CMS/HCC) ([facility]),Dry skin Apply topically if needed for [...] times daily 85 g 1 024 Active levothyroxine (Synthroid, Levoxyl) 125 MCG tablet TAKE 1 TABLET BY MOUTH EVERY MORNING 90 tablet 3 024 Active empagliflozin (Jardiance) 25 MGIndications:Typ e 2 diabetes mellitus with hyperlipidemia (CMS/HCC) ([facility]),Hyperte nsive renal disease Take 1 tablet by mouth once daily in the morning 90 tablet 3 024 Active methyl salicylate-mentho l (Bengay) [...] mouth 2 times daily. 360 capsule 2 Active tamsulosin (Flomax) 0.4 MG 24 hr [...] as directed 30 mL 025 2025 Active albuterol 108 (90 Base) MCG/ACT inhalerIndication s:Shortness of breath Inhale 2 puffs every 6 (six) hours if needed for shortness of breath. 18 g 025 2025 Active Continuous Glucose Clinical Program Coordinator (FreeStyle Yanni 3 Planada) deviceIndications :Type 2 diabetes mellitus with hyperlipidemia (CMS/HCC) ([facility]) 1 each Use as directed. 1 each Active Continuous Glucose Sensor (FreeStyle Yanni 3 Plus Sensor) miscIndications:T ype 2 diabetes mellitus with hyperlipidemia (CMS/HCC) (CMS/[facility]) 1 each Use as directed. 2 each Active glucose blood (FreeStyle Precision Kameron Test) test stripIndications: Type 2 diabetes mellitus with hyperlipidemia (CMS/HCC) (CMS/[facility]) Test blood sugar 3 times daily 100 each 025 2025 Active Multiple Vitamins-Minerals (CertaVite/Antiox idants) tablet Take 1 tablet by mouth at bedtime. Active spironolactone (Aldactone) 25 MG tabletIndications :Essential hypertension Take one half tablet once daily 45 tablet 3 Active Multiple Vitamins-Iron (Tab-A-Stephen/Iron/ Beta Carotene) tablet Take 1 tablet by mouth Once per day. 024 2024 Discontinued(N on-compliance) FREESTYLE LITE test stripIndications: Type 2 diabetes mellitus with diabetic polyneuropathy ([facility]),Type 2 diabetes mellitus with hyperglycemia ([facility]) TEST BLOOD SUGAR THREE TIMES DAILY 100 strip 6 024 2024 Discontinued(O ther) Continuous Glucose Transmitter (Dexcom G6 transmitter) miscIndications:T ype 2 diabetes mellitus with hyperglycemia, without long-term current use of insulin ([facility]),Acquire d absence of right hand 1 each by Other route Use as directed. 1 each 3 024 2024 Discontinued(O ther) Continuous Glucose Sensor (Dexcom G6 Sensor) miscIndications:T ype 2 diabetes mellitus with hyperglycemia, without long-term current use of insulin ([facility]),Acquire d absence of right hand 1 each every 10 (ten) days. 3 each 12 024 2024 Discontinued(O ther) Continuous Glucose Clinical Program Coordinator (Dexcom G6 residential recycle driver) deviceIndications :Type 2 diabetes mellitus with hyperglycemia, without long-term current use of insulin ([facility]),Acquire d absence of right hand Use as directed 1 each 024 2024 Discontinued(O ther) semaglutide (Ozempic, 1 MG/DOSE,) 2 MG/1.5ML solution pen-injectorIndic ations:Type 2 diabetes mellitus with hyperlipidemia ([facility]/HCC) ([facility]) Inject 1 mg under the skin 1 (one) time per week. 3 mL 3 024 2024 Discontinued(N on-compliance) atorvastatin (Lipitor) 80 MG tabletIndications :Mixed hyperlipidemia [...] 01/26/2024 Acute kidney injury superimposed on CKD (CMS/HCC ) 11/20/2023 Assessment & Plan (11/20/2023 5:32 [...] Encounters Date Type Department Care Team Description 09/23/[address] [address] Bobbi Ricks ANP 09/23/[address] [address] Bobbi Ricks ANP Critical lab 09/23/2024 Orders Only [address] [address] Bobbi Ricks ANP 09/23/2024 Telephone [facility] [address] [address] Bobbi Ricks ANP Paperwork/Forms 09/23/2024 Travel 09/18/2024 10:00 AM EST Office Visit [facility] [address] [address] Usha Atkins NP Shortness of breath (Primary Dx); Dry mouth; Elevated blood pressure reading in office with diagnosis of hypertension; Runny nose 09/18/2024 Telephone [facility] [address] [address] Usha Atkins NP Results 09/18/2024 Telephone [facility] [address] [place] [address] Usha Atkins NP Nurse Triage 09/11/[address] [address] Jing Brooks, Julia 09/08/2024 Orders Only [address] [address] Bobbi Ricks ANP Mixed hyperlipidemia 07/27/[address] [address] Sana Hopson [place] February recall 06/23/[address] [address] Bobbi Ricks ANP Mixed hyperlipidemia; Pain; Benign prostatic hyperplasia, unspecified whether lower urinary tract symptoms present 06/23/2024 Telephone [facility] MED[facility] [address] [place] [address] Bobbi Ricks ANP 06/23/2024 Refill [facility] PEDS [address] [place] [address] Bobbi Ricks ANP Mixed hyperlipidemia from Last 3 Months Immunizations Name Administration [...] Sign Reading Time Taken Comments Blood Pressure 152/68 09/23/2024 2:36 PM EST Pulse 60 09/23/2024 2:35 PM EST Temperature 36.9 ??C (98.4 ??F) 09/18/2024 [...] 09/30/2024 3:00 PM EST Medication Management [facility] [address] [place] [address] Jing Brooks, PharmD [address] [place], [place] [phone] 10/16/2024 10:30 AM EDT Office Visit [facility] OPTOMETRY [address] [place] [address] Faye Quinn, OD [address] [place] [address] 10/26/2024 11:00 AM EDT Office Visit [facility] MED[facility]INE [address] [place] [address] Bobbi Ricks, ANP [address] [place] [address] Health Maintenance Due Date Last Done Comments CT Colonography 1955 Colonoscopy 1955 Colorectal Cancer Screening 1955 Dental Prophylaxis 1955 Dental X-Ray: Bitewings 1955 FIT DNA/Cologuard 1955 FIT 1955 FOBT 1955 Sigmoidoscopy 1955 Eye Exam 1965 Alcohol/Substance Use Screening 1967 COVID-19 Vaccine ( season) 2024 01/02/2022, 05/24/2021, 11/22/2020, Additional history exists Depression Monitoring (PHQ-9) 04/25/2024 10/24/2023, 11/29/2022 Dental Oral Exam 09/13/2024 03/12/2024, 03/19/2023 SDOH Screening 10/15/2024 10/16/2023 Depression Screening 10/23/2024 10/24/2023, 11/30/19 23 Diabetes: Foot Exam 11/25/2024 11/26/2023, 11/26/2023, 11/26/2023 Diabetes: Hemoglobin A1C 12/21/2024 025, 06/03/2024, 06/01/2024, Additional history exists Lipid Panel 06/09/2025 06/09/2024, 02/27, 12/13/2022, Additional history exists Tobacco Screening 06/16/2025 06/16/2024 Diabetes: Urine Protein Screening 09/23/2025 09/23/2024, 06/09/2024, 11/26/2023, Additional history exists DTaP/Tdap/Td Vaccines (3 - Td or Tdap) [...] 2:10 PM EST) No Jing Smith PharmD Procedures Procedure Name Priority Date/Time Associated Diagnosis Comments ALBUMIN, RANDOM URINE W/CREATININE Routine 09/23/2024 2:58 PM EST BASIC METABOLIC PANEL Routine 09/23/2024 2:58 PM EST POCT GLYCATED HEMOGLOBIN, TOTAL Routine 09/23/2024 2:10 PM EST Type 2 diabetes mellitus with hyperlipidemia (CMS/HCC) (CMS/HCC) XR CHEST 2 VIEWS Routine 09/18/2024 10:4 9 AM EST Shortness of breath POCT COVID-19 AG SHAH ID NOW Routine 09/18/2024 10:17 AM EST Shortness of breath POCT INFLUENZA A (ID NOW RAPID MOLECULAR) Routine 09/18/2024 10:17 AM EST Shortness of breath POCT INFLUENZA B (ID NOW RAPID MOLECULAR) Routine 09/18/2024 10:17 AM EST Shortness of breath LIPID PANEL, STANDARD Routine 06/09/2024 9:05 AM EST HEPATITIS PANEL, GENERAL Routine 03/18/2024 11:25 AM EDT Neutropenia, unspecified type (CMS/HCC) PANORAMIC RADIOGRAPHIC IMAGE Routine 03/12/2024 11:00 AM EDT PERIODIC ORAL EVALUATION - ESTABLISHED PATIENT Routine 03/12/2024 11:00 AM EDT from Last 3 Months or Most Recently Relevant to Health Maintenance Results * (ABNORMAL) Albumin, Random Urine W/Creatinine (09/23/2024 2:58 PM EST) Creatinine, Urine 33.43 mg/dL [facility] Microalbumin Urine 14.0 mg/L [facility] Microalbum Creatinine Ratio Ur 41.8(H) <30 ug/mg cr [facility] Comment:Albumin/Creatinine R atio Reference Ranges: Normal: < 30 ug/mg creatinine Microalbuminuria: 30 - 300 ug/mg creatinineClinical Albuminuria: > 300 ug/mg creatinine 09/23/2024 2:58 PM EST 09/23/2024 4:20 PM EST Bobbi Ricks ANP LAB URINE ORDERABLES Final Resul t [facility] [address] [place] [address] [phone] * (ABNORMAL) Basic Metabolic Panel (09/23/2024 2:58 PM EST) Sodium 138 135 - 145 mmol/L [facility] Potassium 3.8 3.3 - 5.1 mmol/L [facility] Chloride 102 96 - 108 mmol/L [facility] Carbon Dioxide 27 22 - 29 mmol/L [facility] Anion Gap 13 12 - 20 [facility] Urea Nitrogen (BUN) 19(H) 9 - 16 mg/dL [facility] Creatinine, Serum 1.52(H) 0.5 - 1.4 mg/dL [facility] Estimated Glomerular Filt Rate 46 [facility] Comment:Chronic Kidney Disea se: Estimated GFR < 60 mL/min/1.14j5Ofgiza Kidney Disease: Estimated GFR < 15 mL/min/1.73m2 Glucose 562(HH) 60 - 115 mg/dL [facility] Comment:Critical value for t est(GLU): Results called to and readback by: AIDE Castillo RN Person calling: BOOM Date:09/23/24 Time: 1648 Calcium 9.4 8.4 - 10.2 mg/dL [facility] 09/23/2024 2:58 PM EST 09/23/2024 4:15 PM EST Bobbi Ricks ANP LAB BLOOD ORDERABLES Final Resul t [facility] [address] [place] [address] [phone] * (ABNORMAL) POCT A1C (09/23/2024 2:10 PM EST) Hemoglobin A1C 9.6(A) 4.0 - 6.0 % QC Media Lot # [id number] Lot# Expiration Date [id number] Blood 09/23/2024 2:10 PM EST us Bobbi DELANEY POINT OF CARE TEST ENTER/EDIT OR DERABLES Final Result * XR Chest 2 Views (09/18/2024 10:49 AM EST) Anatomical Region Laterality Modality Chest Radiographic Liz ging 09/18/2024 10:4 9 AM EST Narrative 09/18/2024 11:15 AM EST ?[facility] ?[address] ?[place] [address] ?XRay Report ? Signed ? Patient: Steve Caceres ?MR#: [id number] ?? [id number] ? : 1955 ?Acct:[id number] ? Age/Sex: 69 / M ?ADM Date: 09/18/24 ? Loc: HO.HHCX ? Attending Dr: Usha Atkins ? Ordering Physician: Usha Atkins ?? Date of Service: 09/18/24 ?? Procedure(s): XR chest 2V ?? Accession Number(s): [id number] ? cc: Usha Atkins ? EXAMINATION: ?? [...] DD/ 1049 ? TD/TT: 09/18/24 1057 ? Chronic Disease Manager: ? Procedure Note Donotuseinterpreter, Image - 09/18/2024 [facility] [address] [place] [address] XRay Report Signed Patient: Patel Caceres#: [id number] : 5Acct:[id number] Age/Sex: 69 / MADM Date: 09/18/24 Loc: [facility] Attending Dr: Usha Atkins Ordering Physician: Usha Atkins Date of Service: 09/18/24 Procedure(s): XR chest 2V Accession Number(s): [id number] cc: Usha Atkins EXAMINATION: XR CHEST CLINICAL [...] Heath Abdi MD 09/18/2024 11:12 AM EST Dictated By: Heath Fiore MD Signed By: <Electronically signed by Heath Varela MDin OV> 09/18/24 1112 DD/ 1049 TD/TT: 09/18/24 1057 Chronic Disease Manager: us Usha Atkins TELEPHONE ENGINEER IMG XR PROCEDURES Final Result * Influenza B (ID NOW Rapid Molecular) (09/18/2024 10:17 AM EST) Influenza B Negative Negative, Indeterminate [facility] Swab 09/18/2024 10:1 7 AM EST us Usha Atkins NP POINT OF CARE TEST ENTER/EDIT O RDERABLES Final Result [facility] [address] [place] [address] [phone] * Influenza A (ID NOW Rapid Molecular) (09/18/2024 10:17 AM EST) Influenza A Negative Negative, Indeterminate [facility] Swab 09/18/2024 10:1 7 AM EST [facility] TELEPHONE ENGINEER POINT OF CARE TEST ENTER/EDIT O RDERABLES Final Result Performing Organization Address City/[facility]/ZIP Co de Phone Number [facility] [address] [place] [address] [phone] * POCT COVID-19 Ag Shah ID NOW (09/18/2024 10:17 AM EST) Coronavirus Antigen PCR Negative Negative, Indeterminate, None Detected, Invalid, Specimen unsatisfactory for evaluation, Weakly Positive Swab 09/18/2024 10:1 7 AM EST [facility] TELEPHONE ENGINEER POINT OF CARE TEST ENTER/EDIT O RDERABLES Final Result * (ABNORMAL) Lipid Panel, Standard (06/09/2024 9:05 AM EST) Triglycerides 126 <150 mg/dL [facility] Comment:Desirable Triglyceri de: less than 150 mg/dLBorderline High Triglyceride 150-199 mg/dLHigh Triglyceride: 200-499 mg/dLVery High Triglyceride: greater than or equal to 5OO mg/dL Cholesterol 104 <200 mg/dL [facility] Comment:Desirable Cholestero l: less than 200 mg/dLBorderline High Cholesterol: 200-239 mg/dLHigh Cholesterol: greater than 239 mg/dL LDL Cholesterol Calculated 42 <100 mg/dL [facility] Comment:Desirable LDL: less than 100 mg/dLNear Optimal/Above Optimal LDL: 110- 129 mg/dLBorderline High LDL: 130-159 mg/dLHigh LDL: 160-189 mg/dLVery High LDL: greater than or equal to 190 mg/dL HDL Cholesterol 37(L) >40 mg/dL [facility] Comment:Desirable HDL: great er than 40 mg/dL Note: This HDL assay may give artificially low results in patients with liver disease. 06/09/2024 9:05 AM EST 06/09/2024 11:22 AM EST Bobbi Ricks [facility] LAB BLOOD ORDERABLES Final Resul t Performing Organization Address [facility] Co de Phone Number [facility] [address] [place] [phone] [phone] * Hepatitis A,B,C Profile (03/18/2024 11:25 AM EDT) Hepatitis A IgM Nonreactive Nonreactive [facility] Comment:IgM antibodies to STEPHENS V not detected; does not exclude earlyacute or recovered HAV infection. ~Hepatitis B Surface Antibody REACTIVE Nonreactive [facility] Comment:REACTIVE: > 11.99 mI U/mL Hepatitis B Core Antibody Reactive Nonreactive [facility] Comment:Presumptive evidence of anti-HBc. Hepatitis C Antibody Nonreactive Nonreactive [facility] Comment:Antibodies to HCV no t detected; does not exclude early acuteHCV infection. Hepatitis B Surface Ag Negative Negative [facility] Blood Venous blood specimen / Unknown 03/18/2024 11:25 AM EDT 03/18/2024 1:09 PM EDT Bobbi Ricks [facility] LAB BLOOD ORDERABLES Final Resul t Performing Organization Address [facility] Co de Phone Number [facility] [address] [place] [phone] from Last 3 Months or Most Recently Relevant to Health Maintenance Insurance [facility] [address] [place] [phone] [address] [facility] [address] [place] [address] [phone] [address] [place] [address] [phone] [address] [place] [phone] Care Teams Penciller Relationship Specialty Start Date End Date Bobbi Ricks ANP [address] [place], [place] PCP - General Family Medicine 03/08/21 Jing Brooks PharmD [address] [place], [place] Pharmacist Internal Medicine 03/24/24
--- OUTSIDE RECORDS SUMMARY | 2024-09-23 18:24 | XMS_ITS | Encounter Summary ---
Author Organization [employer] Address [address] [facility] 7t [place] [address] Care Team Providers Care Home Designer Name Role Phone Bobbi Ricks ELAINA Primary Care Provider [phone] Jing Brooks PharmD Unavailable [phone]- [phone] Reason for Visit * Reason Onset Date Comments Nurse Triage 09/18/2024 Encounter Details Date Type Department Care Team ([facility] st Contact Info) Description 09/18/2024 Telephone [facility] [address] [place], [place] [phone] Usha Atkins NP [address] [place] [address] Nurse Triage Social History Tobacco Use Types [...] Frey RN - 09/18/2024 9:22 AM EST inseam leveler Patient presents to walk-in center initialing reporting [...] care at this time. Interpretor ID # [id number] Prabhu documented in this encounter Plan of Treatment Upcoming Encounters Date Type Department Care Team (Late st Contact Info) Description 09/30/2024 3:00 PM EST Medication Management [facility] [address] [place], [place] [phone] Jing Brooks, PharmD [address] [place], [place] [phone] 10/16/2024 10:30 AM EDT Office Visit [facility] OPTOMETRY [address] [place], [place] [phone] Faye Quinn, OD [address] [place] [address] 10/26/2024 11:00 AM EDT Office Visit [facility] [address] [place] [address] Bobbi Ricks ANP [address] [place] [address] documented as of this encounter Goals Goal [...] documented as of this encounter Care Teams Home Designer Relationship Specialty Start Date End Date Bobbi Ricks ANP [address] [place] [address] PCP - General Family Medicine 03/08/21 Jing Brooks PharmD [address] [place] [phone] Pharmacist Internal Medicine 03/24/24 documented as of this encounter
--- OUTSIDE RECORDS SUMMARY | 2024-09-23 18:24 | XMS_ITS | Encounter Summary ---
Author Organization [employer] Address [address] [facility] 7[address] [place] [address] Care Team Providers Care Snow Fence Erector Name Role Phone Bobbi Ricks Primary Care Provider [phone] Jing Brooks PharmD Unavailable [phone]- [phone] Reason for Visit * Reason Comments Med Refill Encounter Details Date Type Department Care Team ([facility] st Contact Info) Description 06/23/2024 Refill [facility] & PEDS [address] [place], [place] [phone] Bobbi Ricks ANP [address] [facility] [address] Mixed hyperlipidemia Social History Tobacco Use Types [...] Description 09/30/2024 3:00 PM EST Medication Management [facility] MED[facility]INE [address] [place] [phone] Jing Brooks, PharmD [address] [place] [address] 10/16/2024 10:30 AM EDT Office Visit [facility] OPTOMETRY [address] [place] [address] TarkaFaye, OD [address] [place] [address] 10/26/2024 11:00 AM EDT Office Visit [facility] [address] [place] [phone] Bobbi Ricks ANP [address] [place] [address] documented as of this encounter Goals Goal Patient Goal Type Associated Problems Recent Progress Patient-Stated? Author Blood Pressure < 140/90 Blood Pressure 152/68(2024 2:36 PM EST) No Piers-Gambl e, Jing, PharmD Hemoglobin A1c < 7 Result Component 9.6( 2:10 PM EST) No Rishis-Gambl e Jing, PharmD documented as of this encounter Visit Diagnoses Diagnosis Mixed hyperlipidemia documented in this encounter Additional Health Concerns Assessment Noted Time PHQ-9 Depression Total Score: 14 023 9:40 AM EDT documented as of this encounter Care Teams Snow Fence Erector Relationship Specialty Start Date End Date Bobbi Ricks ANP [address] [place] [address] PCP - General Family Medicine 03/08/21 Jing Brooks PharmD [address] [place] [address] Pharmacist Internal Medicine 03/24/24 documented as of this encounter
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
--- OUTSIDE RECORDS SUMMARY | 2024-09-23 18:24 | XMS_ITS | Encounter Summary ---
Author Organization [employer] Address [address] [place] [address] 7t [place] [address] Care Team Providers Care Continuous Process Rotary Drum Tanner Name Role Phone Bobbi Ricks Primary Care Provider [phone] iJng Brooks PharmD Unavailable [phone] Encounter Details Date Type Department Care Team (Late st Contact Info) Description 08/14/2022 Orders Only [facility] [address] [place], [place] [phone] Ayse Barrientos LPN Social History Tobacco Use [...] Description 09/30/2024 3:00 PM EST Medication Management [facility] [address] [place] [address] Jing Brooks, PharmD [address] [place] [address] 10/16/2024 10:30 AM EDT Office Visit [facility] OPT[facility] [address] [place] [address] Faye Quinn, OD [address] [place] [address] 10/26/2024 11:00 AM EDT Office Visit [facility] [address] [place] [address] Bobbi Ricks ANP [address] [place] [address] documented as of this encounter Visit Diagnoses Not on filedocumented in this encounter Care Teams Continuous Process Rotary Drum Tanner Relationship Specialty Start Date End Date Bobbi Ricks ANP [address] [place] [address] PCP - General Family Medicine 03/08/21 Jing Brooks, Julia [address] [place] [address] Pharmacist Internal Medicine 03/24/24 documented as of this encounter
--- OUTSIDE RECORDS SUMMARY | 2024-09-23 18:24 | XMS_ITS | Encounter Summary ---
Author Organization [employer] Address [address] [facility] 7t [place] [address] Care Team Providers Care School Secretary Name Role Phone Bobbi Ricks ELAINA Primary Care Provider [phone] Jing Brooks PharmD Unavailable [phone] Encounter Details Date Type Department Care Team (Late st Contact Info) Description 09/11/2024 Telephone [facility] [address] [place] [address] Jing Brooks, PharmD [address] [place] [address] Social History Tobacco Use Types Packs/Day Years [...] 09/30/2024 3:00 PM EST Medication Management [facility] [address] [place] [address] Jing Brooks PharmD [address] [place] [address] 10/16/2024 10:30 AM EDT Office Visit [facility] OPT[facility] [address] [place] [address] Faye Quinn, OD [address] [place] [address] 10/26/2024 11:00 AM EDT Office Visit [facility] [address] [place] [address] Bobbi Ricks ANP [address] [place] [address] documented as of this encounter Goals Goal [...] documented as of this encounter Care Teams School Secretary Relationship Specialty Start Date End Date Bobbi Ricks ANP [address] [place] [address] PCP - General Family Medicine 03/08/21 Jing Brooks PharmD [address] [place] [address] Pharmacist Internal Medicine 03/24/24 documented as of this encounter
--- OUTSIDE RECORDS SUMMARY | 2024-09-23 18:24 | XMS_ITS | Encounter Summary ---
Author Organization [employer] Address [address] [facility] 7t [place] [address] Care Team Providers Care Shrub Grower Name Role Phone Bobbi Ricks Primary Care Provider [phone] Jing Brooks PharmD Unavailable [phone] Reason for Visit * Reason Onset Date Comments Appointment Request 10/29/2022 Encounter Details Date Type Department Care Team ([facility] st Contact Info) Description 10/29/[address] [facility] MED[facility] [address] [place] [address] Bobbi Ricks ANP [address] [place] [address] Appointment Request Social History Tobacco Use Types [...] encounter Miscellaneous Notes * Telephone Encounter - Vno Dukero - 10/29/2022 10:38 AM EDT Jeronimo Alexander with [facility] requesting an appt with provider. Quill Collector tried booking but provider has nothing available at this time. Please contact pt at [phone] Indonesian Speaker documented in this encounter Plan of Treatment Upcoming Encounters Date Type Department Care Team (Late st Contact Info) Description 09/30/2024 3:00 PM EST Medication Management [facility] [address] [place] [address] Jing Brooks, Julia [address] [place] [address] 10/16/2024 10:30 AM EDT Office Visit [facility] OPT[facility] [address] [place] [address] Faye Quinn, OD [address] [place] [address] 10/26/2024 11:00 AM EDT Office Visit [facility] [address] [place] [address] Bobbi Ricks ANP [address] [place] [address] documented as of this encounter Visit Diagnoses Not on filedocumented in this encounter Care Teams Shrub Grower Relationship Specialty Start Date End Date Bobbi Ricks ANP [address] [place] [address] PCP - General Family Medicine 03/08/21 Jing Brooks, JasminD [address] [place] [address] Pharmacist Internal Medicine 03/24/24 documented as of this encounter
--- OUTSIDE RECORDS SUMMARY | 2024-09-23 18:24 | XMS_ITS | Encounter Summary ---
Author Organization [employer] Address [address] [facility] 7t [place] [address] Care Team Providers Care Electroplating Sales Representative Name Role Phone Bobbi Ricks Primary Care Provider [phone] Jing Brooks PharmD Unavailable [phone] Reason for Visit * Reason Onset Date Comments Hospital Follow-up 11/29/2023 Encounter Details Date Type Department Care Team ([facility] st Contact Info) Description 11/29/2023 Telephone [facility] MEDICINE [address] [place] [address] Bobbi Ricks ANP [address] [place] [address] Hospital Follow-up Social History Tobacco Use Types [...] a HDF f/u after recent admission to [facility] for MT on 11/26/23. Pt is stable [...] from pt requesting a HDF appt. Hospital: [facility] Date of admission: 11/25 Discharge date: 11/28 Diagnosed: Acute kidney injury documented in this encounter Plan of Treatment Upcoming Encounters Date Type Department Care Team (Late st Contact Info) Description 09/30/2024 3:00 PM EST Medication Management [facility] MEDICINE [address] [place] [address] Jing Brooks PharmD [address] [place] [address] 10/16/2024 10:30 AM EDT Office Visit [facility] OPTOMETRY [address] [place] [address] TarFaye sauceda, OD [address] [place] [address] 10/26/2024 11:00 AM EDT Office Visit [facility] MED[facility]INE [address] [place] [address] Bobbi Ricks ANP [address] [place] [address] documented as of this encounter Goals Goal Patient Goal Type Associated Problems Recent Progress Patient-Stated? Author Blood Pressure < 140/90 Blood Pressure 152/68(2024 2:36 PM EST) No Jing Smith, PharmD Hemoglobin A1c < 7 Result Component 9.6( 2:10 PM EST) No Jing Smith PharmD documented as of this encounter Visit Diagnoses Not on filedocumented in this encounter Additional Health Concerns Assessment Noted Time PHQ-9 Depression Total Score: 14 023 9:40 AM EDT documented as of this encounter Care Teams Electroplating Sales Representative Relationship Specialty Start Date End Date Bobbi Ricks ANP [address] [place] [address] PCP - General Family Medicine 03/08/21 Jing Brooks, PharmD [address] [place] [address] Pharmacist Internal Medicine 03/24/24 documented as of this encounter
== END 2024-09-23 14:57 | disposition home or self-care (01) ==
LOC: HO.HHCL 14:56
PROVIDERS: Visit Provider Nurse Practitioner Primary Care
DX: E11.69 Type 2 diabetes mellitus with other specified complication (principal); E78.5 Hyperlipidemia, unspecified; I10 Essential (primary) hypertension
CPT/HCPCS: 36415; 80048; 82043; 82570

== ENCOUNTER 2024-10-05 10:22 | Outpatient (REF) | payer OTHER, SELFPAY ==
[2024-10-05 11:26] LABS: MANUAL DIFF FLAG NO
[2024-10-05 11:35] LABS: Eosinophils Absolute Auto 0.1 X10*3/uL (0.0-0.4); Eosinophils Percent Auto 3.4 % (0-4); Hematocrit 46.9 % (42.0-52.0); Hemoglobin 16.7 g/dl (14.0-18.0); Imm Gran Abs Auto 0.01 X10*3/uL (0.00-0.03); Imm Gran Pct Auto 0.3 % (0.0-0.4); Lymphocytes Absolute Auto 1.4 X10*3/uL (1.2-4.9); Lymphocytes Percent Auto 35.2 % (20-40); Mean Corpuscular HGB Conc 35.6 g/dl (31.0-36.0); Mean Corpuscular Hemoglobin 34.6 pg (27.0-33.0); Mean Corpuscular Volume 97.1 fL (80.0-98.0); Mean Platelet Volume 8.9 fL (9.4-12.4); Monocytes Absolute Auto 0.3 X10*3/uL (0.1-1.2); Monocytes Percent Auto 8.9 % (2-11); Neutrophils Percent Auto 51.2 % (45-73); Platelet Count 159 X10*3/uL (160-400); Red Blood Count 4.83 X10*6/uL (4.60-5.80); Red Cell Distribution Width 12.6 % (11.0-16.0); White Blood Count 3.8 X10*3/uL (4.8-10.8)
--- OUTSIDE RECORDS SUMMARY | 2024-10-05 11:41 | XMS_ITS | Encounter Summary ---
Author Organization [employer] [facility] Address [address] [place] [address] 7[address] [place] [address] Care Team Providers Care Plate Maker Zinc Name Role Phone Bobbi Ricks Primary Care Provider [phone] Jing Brooks PharmD Unavailable [phone] Reason for Visit * Reason Comments Med Refill Encounter Details Date Type Department Care Team (Late st Contact Info) Description 02/14/2023 Refill [facility] [address] [place] [address] Bobbi Ricks ANP [address] [place] [address] Hypertension associated with diabetes (CMS/HCC) Social History [...] Care Team (Late st Contact Info) Description 10/06/2024 1:30 PM EDT Medication Management [facility] [address] [place] [address] Jing Brooks, PharmD [address] [place] [address] 10/16/2024 10:30 AM EDT Office Visit [facility] [address] [place] [address] Cheyenne Faye, OD [address] [place] [address] 10/26/2024 11:00 AM EDT Office Visit [facility] [address] [place] [address] Bobbi Ricks ANP [address] [place] [address] documented as of this encounter Visit Diagnoses Diagnosis Hypertension associated with diabetes (CMS/HCC) (CMS/HCC) Unspecified essential hypertension documented in this encounter Additional Health Concerns Assessment Noted Time PHQ-9 Depression Total Score: 14 023 9:40 AM EDT documented as of this encounter Care Teams Plate Maker Zinc Relationship Specialty Start Date End Date Bobbi Ricks ANP [address] [place] [address] PCP - General Family Medicine 03/08/21 Jing Brooks PharmD [address] [place] [address] Pharmacist Internal Medicine 03/24/24 documented as of this encounter
--- OUTSIDE RECORDS SUMMARY | 2024-10-05 11:41 | XMS_ITS | Clinical Summary ---
Author Organization [facility] Address [address] [facility] [address] [place] [address] Phone Care Team Providers Care Precision Farming Coordinator Name Role Phone Bobbi Ricks NP Primary [...] patient's age to complete this topic Insurance [facility] MCR ([id number]) [facility] DUAL SNP ([id number]) Care Teams Precision Farming Coordinator Relationship Specialty Start Date End Date Bobbi Ricks NP PCP - General Nurse Practitioner 07/04/23
--- OUTSIDE RECORDS SUMMARY | 2024-10-05 11:41 | XMS_ITS | Encounter Summary ---
Author Organization [employer] Address [address] [facility] 7t [place] [address] Care Team Providers Care Manager Commercial Sales Name Role Phone Bobbi Ricks Primary Care Provider [phone] Jing Brooks PharmD Unavailable [phone] Encounter Details Date Type Department Care Team (Late st Contact Info) Description 10/21/2023 Orders Only [facility] MEDICINE [address] [place] [address] Bobbi Ricks ANP [address] [place] [address] Social History Tobacco Use Types Packs/Day Years [...] Description 10/06/2024 1:30 PM EDT Medication Management [facility] MED[facility] [address] [place] [address] Jing Brooks, PharmD [address] [place] [address] 10/16/2024 10:30 AM EDT Office Visit [facility] OPTOMETRY [address] [place] [address] Tarka, Faye, OD [address] [place] [address] 10/26/2024 11:00 AM EDT Office Visit [facility] MED[facility] [address] [place] [address] Bobbi Ricks ANP [address] [place] [address] documented as of this encounter Goals Goal Patient Goal Type Associated Problems Recent Progress Patient-Stated? Author Blood Pressure < 140/90 Blood Pressure 159/82(2024 8:49 AM EST) No Rishis-Jing Rosales, PharmD Hemoglobin A1c < 7 Result Component 9.6( 2:10 PM EST) No Jing Smith PharmD documented as of this encounter Visit Diagnoses Not on filedocumented in this encounter Additional Health Concerns Assessment Noted Time PHQ-9 Depression Total Score: 14 023 9:40 AM EDT documented as of this encounter Care Teams Manager Commercial Sales Relationship Specialty Start Date End Date Bobbi Ricks ANP [address] [place] [address] PCP - General Family Medicine 03/08/21 Jing Brooks PharmD [address] [place] [address] Pharmacist Internal Medicine 03/24/24 documented as of this encounter
--- OUTSIDE RECORDS SUMMARY | 2024-10-05 11:41 | XMS_ITS | Encounter Summary ---
Author Organization [employer] Address [address] [facility] 7t [place] [address] Care Team Providers Care Electronic Warfare Officer Name Role Phone Bobbi Ricks Primary Care Provider [phone] Jing Brooks PharmD Unavailable [phone] Encounter Details Date Type Department Care Team (Late st Contact Info) Description 09/23/2024 Orders Only [facility] MEDICINE [address] [place] [address] Bobbi Ricks ANP [address] [place] [address] Social History Tobacco Use Types Packs/Day Years [...] Description 10/06/2024 1:30 PM EDT Medication Management [facility] MEDICINE [address] [place] [address] Jing Brooks PharmD [address] [place] [address] 10/16/2024 10:30 AM EDT Office Visit [facility] OPTOMETRY [address] [place] [address] Tarka, Faye, OD [address] [place] [address] 10/26/2024 11:00 AM EDT Office Visit [facility] MEDICINE [address] [place] [address] Bobbi Ricks, ANP [address] [place] [address] documented as of this encounter Goals Goal Patient Goal Type Associated Problems Recent Progress Patient-Stated? Author Blood Pressure < 140/90 Blood Pressure 159/82(2024 8:49 AM EST) No Jing Smith [employer] Hemoglobin [...] 2:58 PM EST) Creatinine, Urine 33.43 mg/dL [facility] Microalbumin Urine 14.0 mg/L H [facility] Microalbum Creatinine Ratio Ur 41.8(H) <30 ug/mg cr [facility] Comment:Albumin/Creatinine R atio Reference Ranges: Normal: < 30 ug/mg creatinine Microalbuminuria: 30 - 300 ug/mg creatinineClinical Albuminuria: > 300 ug/mg creatinine 09/23/2024 2:58 PM EST 09/23/2024 4:20 PM EST [facility] Ricks [facility] URINE ORDERABLES Final Resul t Performing Organization Address City/State/[facility] Co de Phone Number [facility] [address] [place] [phone] * (ABNORMAL) Basic Metabolic Panel (09/23/2024 2:58 PM EST) Sodium 138 135 - 145 mmol/L [facility] Potassium 3.8 3.3 - 5.1 mmol/L [facility] Chloride 102 96 - 108 mmol/L [facility] Carbon Dioxide 27 22 - 29 mmol/L [facility] Anion Gap 13 12 - 20 [facility] Urea Nitrogen (BUN) 19(H) 9 - 16 mg/dL [facility] Creatinine, Serum 1.52(H) 0.5 - 1.4 mg/dL [facility] Estimated Glomerular Filt Rate 46 [facility] Comment:Chronic Kidney Disea se: Estimated GFR < 60 mL/min/1.49u2Yibcyb Kidney Disease: Estimated GFR < 15 mL/min/1.73m2 Glucose 562(HH) 60 - 115 mg/dL [facility] Comment:Critical value for t est(GLU): Results called to and readback by: AIDE Castillo RN Person calling: [facility] Date:09/23/24 Time: 1648 Calcium 9.4 8.4 - 10.2 mg/dL [facility] 09/23/2024 2:58 PM EST 09/23/2024 4:15 PM EST us Bobbi iRcks ANP LAB BLOOD ORDERABLES Final Resul t [facility] [address] [place] [address] [phone] documented in this encounter Visit Diagnoses Not on filedocumented in this encounter Additional Health Concerns Assessment Noted Time PHQ-9 Depression Total Score: 14 023 9:40 AM EDT documented as of this encounter Care Teams Electronic Warfare Officer Relationship Specialty Start Date End Date Bobbi Ricks ANP [address] [place] [address] PCP - General Family Medicine 03/08/21 Jing Brooks PharmD [address] [place] [address] Pharmacist Internal Medicine 03/24/24 documented as of this encounter
--- OUTSIDE RECORDS SUMMARY | 2024-10-05 11:41 | XMS_ITS | Encounter Summary ---
Author Organization [employer] Address [address] [facility] 7t [place] [address] Care Team Providers Care Paint Stripper Name Role Phone Bobbi Ricks ELAINA Primary Care Provider [phone] Jing Brooks PharmD Unavailable [phone] Reason for Visit * Reason Onset Date Comments Pt status check 09/30/2024 Encounter Details Date Type Department Care Team (Late st Contact Info) Description 09/30/2024 Telephone [facility] MEDICINE [address] [place] [address] Jing Brooks, PharmD [address] [place], [place] [phone] Pt status check Social History Tobacco Use Types Packs/Day Years [...] encounter Miscellaneous Notes * Telephone Encounter - Demetra Varela RN - 10/02/2024 3:22 PM EST Spoke with Leila Longoria nurse liaison through [facility]. Informed pt's phone was on silent but it should now be on. She stated will have [facility] try to contact pt again. * Telephone Encounter - Demetra Varela RN - 10/01/2024 1:22 PM EST Spoke with Leila Longoria [facility] Nurse Liaison who reports that LEOD[facility] is having trouble reaching pt. Pt not answering his phone for them either. Reports that LEODAN eGiger is planning on dropping by pt's house today to see if he is home. Will let us know if they are able to contact. * Telephone Encounter - Caty Enciso RN - 10/01/2024 11:05 AM EST Second attempt to contact the pt to inquire on symptoms including leg pain and a swollen ankle. A VM was left requesting the pt to call back the office. Will postpone this message to try and reach out to the pt another time. * Telephone Encounter - Caty Enciso RN - 09/30/2024 3:48 PM EST TC placed to pt and LVM to call back the office to inquire on symptoms including leg pain and a swollen ankle. Will postpone this message to try and reach out to the pt another time. * Telephone Encounter - Jing Brooks PharmD - 09/30/2024 3:01 PM EST Patient cancelled today's CDTM visit and was followed up by pharmacy CHW who reported to her that he missed visit due to leg pain and a swollen ankle. Please assist in follow up with patient for check in. Thank you! documented in this encounter Plan of Treatment Upcoming Encounters Date Type Department Care Team (Late st Contact Info) Description 10/06/2024 1:30 PM EDT Medication Management [facility] MEDICINE [address] [place] [address] Jing Brooks PharmD [address] [place] [address] 10/16/2024 10:30 AM EDT Office Visit [facility] OPTOMETRY [address] [place] [address] Faye Quinn, OD [address] [place] [address] 10/26/2024 11:00 AM EDT Office Visit [facility] MEDICINE [address] [place] [address] Bobbi Ricks ANP [address] [place] [address] documented as of this encounter Goals Goal Patient Goal Type Associated Problems Recent Progress Patient-Stated? Author Blood Pressure < 140/90 Blood Pressure 159/82(2024 8:49 AM EST) No Jing Smith PharmD Hemoglobin A1c < 7 Result Component 9.6( 5 2:10 PM EST) No Jing Smith PharmD documented as of this encounter Visit Diagnoses Not on filedocumented in this encounter Additional Health Concerns Assessment Noted Time PHQ-9 Depression Total Score: 14 023 9:40 AM EDT documented as of this encounter Care Teams Paint Stripper Relationship Specialty Start Date End Date Bobbi Ricks ANP [address] [place] [address] PCP - General Family Medicine 03/08/21 Jing Brooks PharmD [address] [place] [address] Pharmacist Internal Medicine 03/24/24 documented as of this encounter
--- OUTSIDE RECORDS SUMMARY | 2024-10-05 11:41 | XMS_ITS | Encounter Summary ---
Author Organization [employer] Address [address] [facility] 7t [place] [address] Care Team Providers Care Timber Packer Name Role Phone Bobbi iRcks Primary Care Provider [phone] Jing Brooks PharmD Unavailable [phone] Encounter Details Date Type Department Care Team (Late st Contact Info) Description 09/24/2024 Telephone [facility] MEDICINE [address] [place] [address] Bobbi Ricks ANP [address] [place] [address] Social History Tobacco Use Types Packs/Day Years [...] encounter Progress Notes * ELAINA Dsouza - 09/24/2024 9:47 PM ESTDiscussed with [facility]M pharmacist-see earlier notes-will start insulin and have administered by [facility]. documented in this encounter Plan of Treatment Upcoming Encounters Date Type Department Care Team (Late st Contact Info) Description 10/06/2024 1:30 PM EDT Medication Management [facility] MEDICINE [address] [place] [phone] Jing Brooks PharmD [address] [place] [address] 10/16/2024 10:30 AM EDT Office Visit [facility] OPTOMETRY [address] [place] [address] Tarka, Faye, OD [address] [place] [address] 10/26/2024 11:00 AM EDT Office Visit [facility] MEDICINE [address] [place] [address] Bobbi Ricks ANP [address] [place] [address] documented as of this encounter Goals Goal Patient Goal Type Associated Problems Recent Progress Patient-Stated? Author Blood Pressure < 140/90 Blood Pressure 159/82(2024 8:49 AM EST) No Jing Smith PharmD Hemoglobin A1c < 7 Result Component 9.6(02/26/202 5 2:10 PM EST) No Jing Smith PharmD documented as of this encounter Visit Diagnoses Not on filedocumented in this encounter Additional Health Concerns Assessment Noted Time PHQ-9 Depression Total Score: 14 023 9:40 AM EDT documented as of this encounter Care Teams Timber Packer Relationship Specialty Start Date End Date Bobbi Ricks ANP [address] [place] [address] PCP - General Family Medicine 03/08/21 Jing Brooks, JasminD [address] [place] [address] Pharmacist Internal Medicine 03/24/24 documented as of this encounter
--- OUTSIDE RECORDS SUMMARY | 2024-10-05 11:41 | XMS_ITS | Encounter Summary ---
Author Organization [employer] Address 75 [facility] 7t [place] [address] Care Team Providers Care Fur Liner Name Role Phone Bobbi Ricks Primary Care Provider [phone] Jing Brooks PharmD Unavailable [phone] Reason for Visit * Reason Onset Date Comments Critical lab 09/23/2024 Encounter Details Date Type Department Care Team (Late st Contact Info) Description 09/23/2024 Telephone [facility] MEDICINE [address] [place] [address] Bobbi Ricks ANP [address] [place] [address] Critical lab Social History Tobacco Use Types [...] Encounter - Mary Ann Wallace RN - 09/24/2024 10:13 AM EST Pt presented to walk in clinic this morning, saw Dr Dai. Follow up addressed on other encounter from 09/23/24. * Telephone Encounter - ELAINA Dsouza - 09/23/2024 5:20 PM EST Pt declined to come to [facility] as directed, agreed to come 1st thing tomorrow. Please outreach pt if he does not come to [place] tomorrow () * Telephone Encounter - Shelbie Wilkinson RN - 09/23/2024 4:54 PM EST Incoming call from Mckenna ,at the [facility] lab at 4;46 pm today . Mckenna [...] Description 10/06/2024 1:30 PM EDT Medication Management [facility] MEDICINE [address] [place] [address] Jing Brooks PharmD [address] [place] [address] 10/16/2024 10:30 AM EDT Office Visit [facility] OPTOMETRY [address] [place] [address] TarFaye sauceda, OD [address] [place] [address] 10/26/2024 11:00 AM EDT Office Visit [facility] MEDICINE [address] [place] [address] Bobbi Ricks ANP [address] [place] [address] documented as of this encounter Goals Goal [...] documented as of this encounter Care Teams Fur Liner Relationship Specialty Start Date End Date Bobbi Ricks ANP [address] [place] [address] PCP - General Family Medicine 03/08/21 Jing Brooks PharmD [address] [place] [address] Pharmacist Internal Medicine 03/24/24 documented as of this encounter
--- OUTSIDE RECORDS SUMMARY | 2024-10-05 11:41 | XMS_ITS | Data Portability ---
Author Organization [employer] Address [address] [place] [phone] Care Team Providers Care Ore Roaster Name Role Phone ALIYAH GILLIAM Primary Care Provider [phone] HIM CCA OTHER Assessment Encounter Date Assessment [...] sugar was high today at 350. VSS. Heading Maker on site reports no acute distress. POC [...] BMP, serum or plasma 2023 [facility], [address] [place] [address], [id number], 4 18:27:34 hemoglobin + hematocrit, blood 2023 024 [facility], [address] [place] [address], [id number], 4 18:28:18 Referral None recorded. Procedures None recorded. Surgeries None recorded. Imaging electrocard iogram 2023 [facility], [address] [place] [address], [id number], 4 18:26:51 Medication Orders ketorolac 15 mg/mL injection solution 2023 024 [facility] [place], [facility], [address] [place] [address], [id number], 4 18:21:13 sodium chloride 0.9 % intravenous solution 2023 024 [facility] [place], [address] [place] [address], [id number], 4 18:21:13 metoclopram amanda 5 mg/mL injection solution 2023 [facility] [place], [address] [place] [address], [id number], 4 18:21:13 Patient TargetsNo targets recorded. Patient InstructionsNo instructions recorded. Reason for Referral None Reported. Results Created Date Observation Date Name Description Value Unit Range Abnormal Flag Note LastModifiedBy Organization Detail LastModifiedTime 12/20/19 24 12/20/2023 hemog lobin + hemat ocrit , blood Hemoglobin 12.5 Not Available [facility] [address] [place] [address], [id number], 12/20/2023 18:27:51 12/20/19 24 12/20/2023 hemog lobin + hemat ocrit , blood Hematocrit 37 Not Available [facility] [address] [place] [address], [id number], 12/20/2023 18:27:51 12/20/19 24 12/20/2023 BMP, serum or plasm a BUN 15 Not Available [facility] - [facility] [address], [address], 12/20/2023 17:47:01 12/20/19 24 12/20/2023 BMP, serum or plasm a Ca 1.15 Not Available [facility] [address], [address], 12/20/2023 17:47:01 12/20/19 24 12/20/2023 BMP, serum or plasm a CI- 108 Not Available [facility] [address], [address], 12/20/2023 17:47:01 12/20/19 24 12/20/2023 BMP, serum or plasm a CRE 1.22 Not Available [facility] [address], [address], 12/20/2023 17:47:01 12/20/19 24 12/20/2023 BMP, serum or plasm a GLU 193 Not Available [facility] [address], [address], 12/20/2023 17:47:01 12/20/19 24 12/20/2023 BMP, serum or plasm a K+ 5.4 Not Available [facility] [address], [address], 12/20/2023 17:47:01 12/20/19 24 12/20/2023 BMP, serum or plasm a Na+ 143 Not Available [facility] [address], [address], 12/20/2023 17:47:01 12/20/19 24 12/20/2023 BMP, serum or plasm a tCO2 26 Not Available [facility] [address], [address], 12/20/2023 17:47:01 12/20/19 24 12/20/2023 elect neptali diogr am No observ ation record ed. [address], [phone], 12/20/2023 18:26:50 Result Notes None recorded. Procedures Surgical History None recorded. Imaging Results Imaging Date Name Status LastModified by Organization Details LastModified Time 12/20/2023 electrocardiogram completed [address], [address], 12/20/2023 18:26:50 Procedure Notes None recorded. Medical [...] Not Available Not Available Not Available [employer] Mcintyre Lite kit USE DIRECTED TO TEST BLOOD [...] % 170 mm[Hg] 70 mm[Hg] Not Available [employer] - production 4 17:57:34 Date Recorded Respiratory rate Body temperature Heart rate Oxygen saturation Oxygen saturation in Arterial blood by Pulse oximetry Systolic blood pressure Diastolic blood pressure Provider Name and Address Organization Details Last Updated DateTime 4 20 /min 98.5 [degF] 56 /min 100 % 100 % 216 mm[Hg] 83 mm[Hg] Not Available [employer] - production 4 17:35:22 Social History None recorded. Functional Status None recorded. Mental Status None recorded. Family History Nothing Reported. Medical History No medical history recorded. Past Encounters Encounter ID Performer Location Encounter Start Date Encounter Closed Date Diagnosis/Indication Diagnosis SNOMED-CT Code Diagnosis ICD10 Code Diagnosis Note [id number] Radha Lindsay MD [facility] - [facility] [address] [place] [phone] 12/13/2023 14:33:21 03/24/2024 14:12:34 Hyperglycemia 00985560 R73.9 Nocturia 468415765 R35.1 [id number] BECCA NEUMANN MD [facility] - [facility] [address] [place] [phone] 12/20/2023 17:35:20 12/20/2023 21:28:56 Headache 80960686 R51.9 Evaluation in the field was performed by my buttermaker colleague, as noted above, I provided real-time [...] or any other concerns. Increased blood pressure 88506152 R03.0 Pt had skipped the dose of [...] BP and ongoing bradycardi a. BP before buttermaker left 196/70. Headache has resolved. Red flags discussed with the patient Bradycardia 54745312 R00 .1 ECG with sinus bradicardi a. [...] Denson Member ID Guarantor Name 12/13/2023 1 [facility] - DOS ON OR AFTER 2022 - DUAL ELIGIBLE - CORRECTION OPTIONS AND ONE CARE (MEDICARE REPLACEMENT/AD VANTAGE - HMO) Steve Morris [id number] Stevecyndy Caceres 12/20/2023 1 [facility] - DOS ON OR AFTER 2022 - DUAL ELIGIBLE - CORRECTION OPTIONS AND ONE CARE (MEDICARE REPLACEMENT/AD VANTAGE - HMO) Steve Morris [id number] Steve Caceres Notes Date Note Type Note [...] provided by RN calling inSpanish speaking only [facility] Heading Maker POC Test Results from [facility] Blood Glucose Measurement (1) [17:59] Blood Glucose: 461 mg/dL iSTAT Chem8+ (2) [17:59] Na: 138 mEq/L K: 4.8 mEq/L Cl: 105 mEq/L iCa: 1.22 mmol/L TCO2: 26 mmol/L Glu: 358 mg/dL BUN: 27 mg/dL Crea: 1.3 mg/dL Hct: 34 % Hb: 11.6 g/dL A ...................... ...................... ...................... ...................... ...................... ...................... ......... Heading Maker Note From Heather Cotto: [facility] Heading Maker Ann-MarieDaniela Cotto SC6 dispatched to a [facility] for a 68 yom C/O pain [...] tenderness. Blood sugar 461. Urine dip acquired. [facility] consulted; #20 IV placed in his left [...] ......... Disposition: Fulfilled Radha Lindsay MD [address] [facility] [place] [facility],[address], [place], [phone], [employer] 03/23/2024 19:41:30 12/20/2023 text/html HPI: NITINA RN [...] any additional information to process this visit. Heading Maker POC Test Results from [facility] EKG (1) [17:51] EKG test performed. Attachments uploaded as part of this test result can be found under Documents section. Heading Maker POC Test Results from [facility] epoc (1) [18:13] pH: 7.372 pH [...] ...................... ...................... ...................... ...................... ...................... ...................... ......... Heading Maker Note From [facility]: 68 y/o male found ambulatory on scene presenting with a c/c of a headache. Pt presented awake and alert x4 with a patent airway, adequate respirations and a strong radial pulse. GCS 15. Skin warm and dry. The pt was Lithuanian speaking only. The pt reported a 6/10 [...] diarrhea, fever, chills, dizziness or lightheadedness. The [facility] was consulted and ordered POC blood work, [...] ......... Disposition: Fulfilled BECCA NEUMANN MD [address] [facility] [place] [facility],[address], [place], [phone], BARAK LOPEZ 12/20/2023 19:23:39
--- OUTSIDE RECORDS SUMMARY | 2024-10-05 11:41 | XMS_ITS | Encounter Summary ---
Author Organization [employer] Address [address] [facility] 7t [place] [address] Care Team Providers Care Chief Operations Officer Name Role Phone Bobbi Ricks ELAINA Primary Care Provider [phone] Jing Brooks PharmD Unavailable [phone]- [phone] Reason for Visit * Reason Comments Hyperglycemia Encounter Details Date Type Department Care Team ([facility] st Contact Info) Description 09/24/2024 8:40 AM EST Office Visit [facility] [address] [place] [address] Dony Dai MD [address] [place] [address] Essential hypertension (Primary Dx); Type 2 diabetes mellitus with hyperglycemia, without long-term current use of insulin ([facility]) Social History Tobacco Use Types Packs/Day Years [...] Sign Reading Time Taken Comments Blood Pressure 159/82 09/24/2024 8:49 AM EST Pulse 68 09/24/2024 8:49 AM EST Temperature 36.7 ??C (98.1 ??F) 09/24/2024 8:49 AM ES T Respiratory Rate 16 09/24/2024 8:49 AM EST Oxygen Saturation 97% 09/24/2024 8:49 AM EST Inhaled Oxygen Concentration - - Weight 76.2 kg (168 lb) 09/24/2024 8:49 AM EST Height - - Body Mass Index 23.43 06/03/2024 2:54 PM EST documented in this encounter Progress Notes * Dony Dai MD - 09/24/2024 8:40 AM EST Subjective History was provided by the patient. Steve Caceres is a 69 y.o. male who presents for evaluation of elevated BS and BP. Was seen yesterday for CDTM visit. Found to have BS 562, K+ 3.8 and BUN/Cr 19/1.52 (09/23/2024). AG was 13. Denies CP/SOB/SUMMERS, but reports polydipsia and polyuria. Patient has CGM, but reports he does not know how to track his glucose levels. Previously was on Ozempic administered by SALES AND MERCHANDISING REPRESENTATIVE. He no longer has [employer]CH[employer] and states he is unable to self administer injections. Of note, he is s/p right hand amputation. He is able to check BS at home with a capillary glucometer. He is currently taking Jardiance 25mg daily forhis DM. After his CGM appointment, he was recommended to start Spironolactone 12.5mg daily, but hasnot picked up his Rx yet. He was previously advised to discontinue AZAM-I/ARB due to elevated Cr (up to 2.09) and K+ (up to 7.9) in 10/2023. Objective Vitals: 09/24/24 0849 BP: (!) 159/82 BP Location: Right arm Patient Position: Sitting BP Cuff Size: Adult Pulse: 68 Resp: 16 Temp: 98.1 ??F (36.7 ??C) TempSrc: Temporal SpO2: 97% Weight: 168 lb (76.2 kg) Physical Exam Vitals reviewed. Constitutional: Appearance: Normal appearance. HENT: Head: Normocephalic and atraumatic. Right Ear: External ear normal. Left Ear: External ear normal. Nose: Nose normal. Mouth/Throat: Pharynx: Oropharynx is clear. Eyes: Conjunctiva/sclera: Conjunctivae normal. Cardiovascular: Rate and Rhythm: Normal rate and regular rhythm. Heart sounds: Normal heart sounds. Pulmonary: Effort: Pulmonary effort is normal. Breath sounds: Normal breath sounds. Abdominal: General: Abdomen is flat. Palpations: Abdomen is soft. Comments: CGM intact on right-side of abdominal wall Musculoskeletal: Cervical back: Normal range of motion and neck supple. Skin: General: Skin is warm and dry. Neurological: Mental Status: He is alert and oriented to person, place, and time. Psychiatric: Mood and Affect: Mood normal. Behavior: Behavior normal. Thought Content: Thought content normal. Judgment: Judgment normal. Office Visit on 09/24/2024 Component Date Value Ref Range Status Glucose Blood, POC 09/24/2024 273 (A) 60 - 200 mg/dL Final Orders Only on 09/23/2024 Component Date Value Ref Range Status Sodium 09/23/2024 138 135 - 145 mmol/L Final Potassium 09/23/2024 3.8 3.3 - 5.1 mmol/L Final Chloride 09/23/2024 102 96 - 108 mmol/L Final Carbon Dioxide 09/23/2024 27 22 - 29 mmol/L Final Anion Gap 09/23/2024 13 12 - 20 Final Urea Nitrogen (BUN) 09/23/2024 19 (H) 9 - 16 mg/dL Final Creatinine, Serum 09/23/2024 1.52 (H) 0.5 - 1.4 mg/dL Final Estimated Glomerular Filt Rate 09/23/2024 46 Final Chronic Kidney Disease: Estimated GFR < 60 mL/min/[id number] Kidney Disease: Estimated GFR < 15 mL/min/1.73m2 Glucose 09/23/2024 562 (HH) 60 - 115 mg/dL Final Critical value for test(GLU): Results called to and readback by: AIDE Castillo RN Person calling: MEEKOSBALDO Date:09/23/24 Time: 1648 Calcium 09/23/2024 9.4 8.4 - 10.2 mg/dL Final Creatinine, Urine 09/23/2024 33.43 mg/dL Final Microalbumin Urine 09/23/2024 14.0 mg/L Final Microalbum Creatinine Ratio Ur 09/23/2024 41.8 (H) <30 ug/mg cr Final Albumin/Creatinine Ratio Reference Ranges: Normal: < 30 ug/mg creatinine Microalbuminuria: 30 - 300 ug/mg creatinineClinical Albuminuria: > 300 ug/mg creatinine Medication Management on 09/23/2024 Component Date Value Ref Range Status Hemoglobin A1C 09/23/2024 9.6 (A) 4.0 - 6.0 % Final QC Media Lot # 09/23/2024 [id number] Final Lot# Expiration Date 09/23/2024 [id number] Final Steve was seen today for hyperglycemia. Diagnoses and all orders for this visit: Essential hypertension (Primary) Type 2 diabetes mellitus with hyperglycemia, without long-term current use of insulin ([facility]) - POCT glucose manually resulted Patient presents to [facility] due to elevated BS and BP Had a CDTM evaluation yesterday Venous BS 562 --> POC BS 273 today (Hgb A1c 9.6) Within normal AG Denies any other concerns other than polyuria and polydipsia Encouraged to start Spironolactone 12.5mg daily as recommended ADA diet reviewed Has CGM, but has difficulty tracking glucose values Using capillary glucometer as well States he is unable to self administer injections (GLP-1 receptor agonist or insulin); no medication adjustment made today for DM Currently taking Jardiance 25mg daily Has an upcoming CDTM appointment next week Reminded him on the appointment and encouraged adherence with medications documented in this encounter Plan of Treatment Upcoming Encounters Date Type Department Care Team (Late st Contact Info) Description 10/06/2024 1:30 PM EDT Medication Management [facility] [address] [place] [address] Jing Brooks PharmD [address] [place] [address] 10/16/2024 10:30 AM EDT Office Visit [facility] [address] [place] [address] Faye Quinn, OD [address] [place] [address] 10/26/2024 11:00 AM EDT Office Visit [facility] [address] [place] [address] Bobbi Ricks, ANP [address] [place] [address] documented as of this encounter Goals Goal Patient Goal Type Associated Problems Recent Progress Patient-Stated? Author Blood Pressure < 140/90 Blood Pressure 159/82(2024 8:49 AM EST) No Jing Smith PharmD Hemoglobin A1c < 7 Result Component 9.6( 2:10 PM EST) No Jing Smith PharmD documented as of this encounter Procedures Procedure Name Priority Date/Time Associated Diagnosis Comments POCT GLUCOSE Routine 09/24/2024 8:51 AM EST Type 2 diabetes mellitus with hyperglycemia, without long-term current use of insulin ([facility]) documented in this encounter Results * (ABNORMAL) POCT glucose manually resulted (09/24/2024 8:51 AM EST) Pathologist [facility] Glucose Blood, POC 273(A) 60 - 200 mg/dL Blood Capillary blood specimen / Unknown 09/24/2024 8:51 AM EST Dony Dai MD POINT OF CARE TEST ENTER/EDIT OR DERABLES Final Result documented in this encounter Visit Diagnoses Diagnosis Essential hypertension- Primary Unspecified essential hypertension Type 2 diabetes mellitus with hyperglycemia, without long-term current use of insulin ([facility]) documented in this encounter Additional Health Concerns Assessment Noted Time PHQ-9 Depression Total Score: 14 023 9:40 AM EDT documented as of this encounter Care Teams Chief Operations Officer Relationship Specialty Start Date End Date Bobbi Ricks ANP [address] [place] [address] PCP - General Family Medicine 03/08/21 Jing Brooks PharmD [address] [place] [address] Pharmacist Internal Medicine 03/24/24 documented as of this encounter
--- OUTSIDE RECORDS SUMMARY | 2024-10-05 11:41 | XMS_ITS | Encounter Summary ---
Author Organization [employer] Address [address] [facility] 7t [place] [address] Care Team Providers Care Construction Controller Name Role Phone Bobbi Ricks Primary Care Provider [phone] Jing Brooks PharmD Unavailable [phone]- [phone] Reason for Visit * Reason Comments Med Refill Encounter Details Date Type Department Care Team ([facility] st Contact Info) Description 11/01/2023 Refill [facility] [address] [place], [place] [phone] Bobbi Ricks ANP [address] [facility] [place] [address] Pain Social History Tobacco Use Types Packs/Day [...] Description 10/06/2024 1:30 PM EDT Medication Management [facility] [address] [place] [phone] RishisJing Escobar, PharmD [address] [place] [address] 10/16/2024 10:30 AM EDT Office Visit [facility] [address] [place] [address] TarkaFaye, OD [address] [place] [address] 10/26/2024 11:00 AM EDT Office Visit [facility] [address] [place] [address] Bobbi Ricks ANP [address] [place] [address] documented as of this encounter Goals Goal Patient Goal Type Associated Problems Recent Progress Patient-Stated? Author Blood Pressure < 140/90 Blood Pressure 159/82(2024 8:49 AM EST) No Piers-Gambl e, Jing, PharmD Hemoglobin A1c < 7 Result Component 9.6( 2:10 PM EST) No Piers-Gambl e, Jing, PharmD documented as of this encounter Visit Diagnoses Diagnosis Pain Generalized pain documented in this encounter Additional Health Concerns Assessment Noted Time PHQ-9 Depression Total Score: 14 023 9:40 AM EDT documented as of this encounter Care Teams Construction Controller Relationship Specialty Start Date End Date Bobbi Ricks ANP [address] [place] [address] PCP - General Family Medicine 03/08/21 Jing Brooks PharmD [address] [place] [address] Pharmacist Internal Medicine 03/24/24 documented as of this encounter
--- OUTSIDE RECORDS SUMMARY | 2024-10-05 11:41 | XMS_ITS | Encounter Summary ---
Author Organization [employer] Address [address] [facility] 7t [place] [address] Care Team Providers Care Hog Pusher Name Role Phone Bobbi Ricks Primary Care Provider [phone] Jing Brooks PharmD Unavailable [phone]- [phone] Reason for Visit * Reason Onset Date Comments Results 09/23/2024 Critical result plan 09/23/2024 Encounter Details Date Type Department Care Team ([facility] st Contact Info) Description 09/23/2024 Telephone [facility] [address] [place] [address] Bobbi Ricks ANP [address] [place] [address] Results; Critical result plan Social History Tobacco Use Types Packs/Day Years [...] Telephone Encounter - Demetra Varela RN - 09/25/2024 9:40 AM EST VNA referral packet generated and signed. Will give to Leila Longoria nurse liaison from [facility] later today for start of care. * Telephone Encounter - Mary Ann Wallace RN - 09/24/2024 10:32 AM EST Patient seen by Dr Dai today at [facility]. Telephone call to pt using [employer] interpreter [facility] #[id number]. Explained to pt that PCP recommends basal insulin to help control blood sugar along. Explained that visiting nurse could help inject this along with Ozempic, and that hopefully this is short term. Pt in agreement. Reminded pt alsoto get labs drawn again next week, around Saturday. Pt verbalized understanding, stated he picked up the spironolactone today. Advised him nurses working on paperwork for visiting nursing services. Pt in agreement with plan. * Telephone Encounter - ELAINA Dsouza - 09/23/2024 5:28 PM EST Spoke with Pharm.Abby HOOKER regarding plan for diabetes and hypertension. Discussed adding backspironolactone at 12.5 mg daily, rx sent by [facility] pharmacist. We are hesitant to add back AZAM or ARBas although he needs renal protection his creatinine has still not returned to baseline after MT last year. He is on SGLT2i max dose. Potassium was within normal limits today. Glu was critical 562. 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 Please let me know if he agrees. Jing also rx'd spironolactone to start for his BP and will need repeat BMP next week. * Telephone Encounter - Jessi Gunter RN - 09/23/2024 5:03 PM EST T/C to pt via BLS Tong Hooker Kam per PCP request due to critical glucose 562 today to recommend that pt come to [facility] now for evaluation as pt is not able to administer insulin. Pt declines to come in today stating he is already going to bed. Counseled pt on dangers of uncontrolled hyperglycemia. Pt agrees to come to [facility] tomorrow morning for evaluation. documented in this encounter Plan of Treatment Upcoming Encounters Date Type Department Care Team (Late st Contact Info) Description 10/06/2024 1:30 PM EDT Medication Management [facility] [address] [place] [address] Jing Brooks PharmD [address] [place] [address] 10/16/2024 10:30 AM EDT Office Visit [facility] [address] [place] [address] TarkaFaye, OD [address] [place] [address] 10/26/2024 11:00 AM EDT Office Visit [facility] [address] [place] [address] Bobbi Ricks ANP [address] [place] [address] documented as of this encounter Goals Goal [...] documented as of this encounter Care Teams Hog Pusher Relationship Specialty Start Date End Date Bobbi Ricks ANP [address] [place] [address] PCP - General Family Medicine 03/08/21 Jing Brooks PharmD [address] [place] [phone] Pharmacist Internal Medicine 03/24/24 documented as of this encounter
--- OUTSIDE RECORDS SUMMARY | 2024-10-05 11:41 | XMS_ITS | Encounter Summary ---
Author Organization [employer] Address [address] [facility] 7t [place] [address] Care Team Providers Care Protective Signal Operations Supervisor Name Role Phone Bobbi Ricks Primary Care Provider [phone] Jing Brooks PharmD Unavailable [phone]- [phone] Reason for Visit * Reason Comments Med Refill Encounter Details Date Type Department Care Team ([facility] st Contact Info) Description 10/30/2023 Refill [facility] [address] [place], [place] [phone] Bobbi Ricks ANP 230 [facility] [place] [address] Pain Social History Tobacco Use Types Packs/Day [...] Description 10/06/2024 1:30 PM EDT Medication Management [facility] [address] [place] [address] RishisJing Escobar, PharmD [address] [place] [address] 10/16/2024 10:30 AM EDT Office Visit [facility] [address] [place] [address] TarkaFaye, OD [address] [place] [address] 10/26/2024 11:00 AM EDT Office Visit [facility] [address] [place] [address] Bobbi Ricks ANP [address] [place] [address] documented as of this encounter Goals Goal [...] documented as of this encounter Care Teams Protective Signal Operations Supervisor Relationship Specialty Start Date End Date Bobbi Ricks ANP [address] [place] [address] PCP - General Family Medicine 03/08/21 Jing Brooks PharmD [address] [place] [address] Pharmacist Internal Medicine 03/24/24 documented as of this encounter
--- OUTSIDE RECORDS SUMMARY | 2024-10-05 11:41 | XMS_ITS | Encounter Summary ---
Author Organization [employer] Address [address] [facility] 7t [place] [address] Care Team Providers Care Insulation Machine Operator Name Role Phone Bobbi Ricks Primary Care Provider [phone] Jing Brooks PharmD Unavailable [phone] Reason for Visit * Reason Comments Med Refill Encounter Details Date Type Department Care Team ([facility] st Contact Info) Description 11/12/2023 Refill [facility] [address] [place], [place] [phone] Bobbi Ricks ANP [address] [place] [address] Essential hypertension Social History Tobacco Use Types [...] 10/06/2024 1:30 PM EDT Medication Management [facility] [address] [place] [address] Jing Brooks, PharmD [address] [place] [address] 10/16/2024 10:30 AM EDT Office Visit [facility] [address] [place] [address] Tarka, Faye, OD [address] [place] [address] 10/26/2024 11:00 AM EDT Office Visit [facility] [address] [place] [address] Bobbi Ricks ANP [address] [place] [address] documented as of this encounter Goals Goal Patient Goal Type Associated Problems Recent Progress Patient-Stated? Author Blood Pressure < 140/90 Blood Pressure 159/82(2024 8:49 AM EST) No Piers-Gambl e, Jing, PharmD Hemoglobin A1c < 7 Result Component 9.6( 2:10 PM EST) No Rishis-Gambl Alma lugosa, PharmD documented as of this encounter Visit Diagnoses Diagnosis Essential hypertension Unspecified essential hypertension documented in this encounter Additional Health Concerns Assessment Noted Time PHQ-9 Depression Total Score: 14 023 9:40 AM EDT documented as of this encounter Care Teams Insulation Machine Operator Relationship Specialty Start Date End Date Bobbi Ricks ANP [address] [place] [address] PCP - General Family Medicine 03/08/21 Jing Brooks PharmD [address] [place] [address] Pharmacist Internal Medicine 03/24/24 documented as of this encounter
--- OUTSIDE RECORDS SUMMARY | 2024-10-05 11:41 | XMS_ITS | Encounter Summary ---
Author Organization [employer] [facility] Address [address] [place] [address] 7t [place] [address] Care Team Providers Care Personnel Adviser Name Role Phone Bobbi Ricks Primary Care Provider [phone] Jing Broosk PharmD Unavailable Encounter Details Date Type Department Care Team (Late Contact Info) Description 03/18/2023 Orders Only [facility] [address] [place] [address] Vj Tolbert [address] [place] [address] Social History Tobacco Use Types Packs/Day Years [...] Description 10/06/2024 1:30 PM EDT Medication Management [facility] [address] [place] [address] Jing Brooks, PharmD [address] [place], [place] [phone] 10/16/2024 10:30 AM EDT Office Visit [facility] [address] [place] [address] Cheyenne Faye, OD [address] [place] [address] 10/26/2024 11:00 AM EDT Office Visit [facility] [address] [place] [address] Bobbi Ricks ANP [address] [place] [address] documented as of this encounter Visit Diagnoses Not on filedocumented in this encounter Additional Health Concerns Assessment Noted Time PHQ-9 Depression Total Score: 14 023 9:40 AM EDT documented as of this encounter Care Teams Personnel Adviser Relationship Specialty Start Date End Date Bobbi Ricks ANP [address] [place] [address] PCP - General Family Medicine 03/08/21 Jing Brooks, Julia [address] [place] [phone] Pharmacist Internal Medicine 03/24/24 documented as of this encounter
--- OUTSIDE RECORDS SUMMARY | 2024-10-05 11:41 | XMS_ITS | Encounter Summary ---
Author Organization [employer] Address [address] [facility] 7t [place] [address] Care Team Providers Care Packer Name Role Phone Bobbi Ricks Primary Care Provider [phone] Jing Brooks PharmD Unavailable [phone] Reason for Visit * Reason Onset Date Comments Care Coordination 10/02/2024 Encounter Details Date Type Department Care Team (Late st Contact Info) Description 10/02/2024 Telephone [facility] [address] [place] [address] Jing Brooks, PharmD [address] [place], [place] [phone] Care Coordination Social History Tobacco Use Types Packs/Day Years [...] Encounter - Mary Ann Wallace RN - 10/02/2024 3:19 PM EST HUGO Mccrary spoke with Stacy, nurse liaison for [facility] at 1pm, Leila Longoria to reach back out to pt's VNA today and advise them to contact the pt again. Will task to check on VNA situation on 10/05/24. 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 He reports having leg pain as previously reported however praying about it and using a spray and leg pain immediately, completely resolved. Denies leg pain, swelling today. Patient states his cell phone has since been fixed and states understanding to seek medical attention if symptoms arise again. Patient states he is not aware when [facility]NA team is visiting however that he will keep tresiba in his refrigerator (picked up from pharmacy today with CGM supplies) until they are able to administer. Patient left with CGM Yanni 3 applied. Following this visit today. documented in this encounter Plan of Treatment Upcoming Encounters Date Type Department Care Team (Late st Contact Info) Description 10/06/2024 1:30 PM EDT Medication Management [facility] [address] [place] [address] Jing Brooks PharmD [address] [place] [address] 10/16/2024 10:30 AM EDT Office Visit [facility] [address] [place] [address] Tarka, Faye, OD [address] [place] [address] 10/26/2024 11:00 AM EDT Office Visit [facility] [address] [place] [address] Bobbi Ricks ANP [address] [place] [address] documented as of this encounter Goals Goal Patient Goal Type Associated Problems Recent Progress Patient-Stated? Author Blood Pressure < 140/90 Blood Pressure 159/82(2024 8:49 AM EST) No Jing Smith, PharmD Hemoglobin A1c < 7 Result Component 9.6( 2:10 PM EST) No Jing Smith PharmD documented as of this encounter Visit Diagnoses Not on filedocumented in this encounter Additional Health Concerns Assessment Noted Time PHQ-9 Depression Total Score: 14 023 9:40 AM EDT documented as of this encounter Care Teams Packer Relationship Specialty Start Date End Date Bobbi Ricks ANP [address] [place] [address] PCP - General Family Medicine 03/08/21 Jing Brooks, PharmD [address] [place] [phone] Pharmacist Internal Medicine 03/24/24 documented as of this encounter
--- OUTSIDE RECORDS SUMMARY | 2024-10-05 11:42 | XMS_ITS | Encounter Summary ---
Author Organization [employer] Address 75 [facility] 7t [place] [address] Care Team Providers Care Sheet Metal Contractor Name Role Phone Bobbi Ricks Primary Care Provider [phone] Jing Brooks PharmD Unavailable [phone]- [phone] Reason for Visit * Reason Onset Date Comments Paperwork/Forms 09/23/2024 Encounter Details Date Type Department Care Team ([facility] st Contact Info) Description 09/23/2024 Telephone [facility] [address] [place], [place] [phone] Bobbi Ricks ANP 230 [place] [address] Paperwork/Forms Social History Tobacco Use Types Packs/Day [...] verbal order for pt to get [facility] assisted services for medication management 1x weekly for Ozempic injection. Prepared order and placed on PCP desk for signature. documented in this encounter Plan of Treatment Upcoming Encounters Date Type Department Care Team (Late st Contact Info) Description 10/06/2024 1:30 PM EDT Medication Management [facility] MED[facility] [address] [place] [address] Jing Brooks, PharmD 230 [place] [address] 10/16/2024 10:30 AM EDT Office Visit [facility] OPTOM[facility]RY [address] [place] [address] Faye Quinn, OD 267 [place] [address] 10/26/2024 11:00 AM EDT Office Visit [facility] MED[facility] [address] [place] [address] Bobbi Ricks, ANP 230 [place] [address] documented as of this encounter Goals Goal [...] documented as of this encounter Care Teams Sheet Metal Contractor Relationship Specialty Start Date End Date Bobbi Ricks ANP 230 [place] [address] PCP - General Family Medicine 03/08/21 Jing Brooks PharmD 230 [place] [address] Pharmacist Internal Medicine 03/24/24 documented as of this encounter
--- OUTSIDE RECORDS SUMMARY | 2024-10-05 11:42 | XMS_ITS | Encounter Summary ---
Author Organization [employer] Address [address] [place] [address] 7t [place] [address] Care Team Providers Care Finger Buffs Assembler Name Role Phone Bobbi Ricks Primary Care Provider [phone] Jing Brooks PharmD Unavailable [phone] Encounter Details Date Type Department Care Team (Late Contact Info) Description 10/02/2022 Orders Only [facility] MED & PEDS [address] [place], [place] [phone] Ayse Barrientos LPN Social History Tobacco Use [...] Department Care Team (Late Contact Info) Description 10/06/2024 1:30 PM EDT Medication Management [facility] MEDICINE 230 [place], [place] [phone] Jing Brooks, PharmD 230 [place], [place] [phone] 10/16/2024 10:30 AM EDT Office Visit [facility] OPTOMETRY 267 [place] [address] Faye Quinn, OD [address] [place] [address] 10/26/2024 11:00 AM EDT Office Visit [facility] MEDICINE 230 [place] [address] Bobbi Ricks ANP 230 [place] [address] documented as of this encounter Visit Diagnoses Not on filedocumented in this encounter Care Teams Finger Buffs Assembler Relationship Specialty Start Date End Date Bobbi Ricks ANP [address] [place] [address] PCP - General Family Medicine 03/08/21 Jing Brooks PharmD [address] [place] [address] Pharmacist Internal Medicine 03/24/24 documented as of this encounter
--- OUTSIDE RECORDS SUMMARY | 2024-10-05 11:42 | XMS_ITS | Encounter Summary ---
Author Organization [employer] Address 75 [facility] 7t [place] [address] Care Team Providers Care Cotton Cleaner Name Role Phone Bobbi Ricks Primary Care Provider [phone] Jing Brooks PharmD Unavailable [phone] Encounter Details Date Type Department Care Team [...] Description 10/06/2024 1:30 PM EDT Medication Management [facility] MEDICINE [address] [place] [address] Piers-Cerda, Jing, PharmD [address] [place] [address] 10/16/2024 10:30 AM EDT Office Visit [facility] OPTOMETRY [address] [place] [address] Tarka, Faye, OD 267 [place] [address] 10/26/2024 11:00 AM EDT Office Visit [facility] MEDICINE [address] [place] [address] Bobbi Ricks ANP 230 [place] [address] documented as of this encounter Goals Goal [...] documented as of this encounter Care Teams Cotton Cleaner Relationship Specialty Start Date End Date Bobbi Ricks ANP [address] [place] [address] PCP - General Family Medicine 03/08/21 Jing Brooks, Julia [address] [place] [address] Pharmacist Internal Medicine 03/24/24 documented as of this encounter
--- OUTSIDE RECORDS SUMMARY | 2024-10-05 11:42 | XMS_ITS | Encounter Summary ---
Author Organization [employer] Address 75 [facility] 7t [place] [address] Care Team Providers Care Shipping And Receiving Associate Name Role Phone Bobbi Ricks ELAINA Primary Care Provider [phone] Jing Brooks PharmD Unavailable [phone]- [phone] Reason for Visit * Reason Onset Date Comments Results 09/18/2024 Encounter Details Date Type Department Care Team ([facility] st Contact Info) Description 09/18/2024 Telephone [facility] 230 [place], [place] [phone] Usha Atkins NP 230 [place] [address] Results Social History Tobacco Use Types Packs/Day [...] with plan of care at this time. [employer] interpretor ID #[id number] Ayse ----- Message from Usha Atkins sent at 09/18/2024 12:51 PM EST ----- Please inform patient of normal X-ray results. I sent albuterol inhaler to pharmacy to trial if anyimprovement in his symptom. Thanks documented in this encounter Plan of Treatment Upcoming Encounters Date Type Department Care Team (Late st Contact Info) Description 10/06/2024 1:30 PM EDT Medication Management [facility] MEDICINE 230 [place] [address] Jing Brooks, PharmD 230 [place] [address] 10/16/2024 10:30 AM EDT Office Visit [facility] OPTOMETRY 267 [place] [address] Faye Quinn, OD 267 [place] [address] 10/26/2024 11:00 AM EDT Office Visit [facility] MEDICINE 230 [place] [address] Bobbi Ricks ANP 230 [place] [address] documented as of this encounter Goals Goal [...] documented as of this encounter Care Teams Shipping And Receiving Associate Relationship Specialty Start Date End Date Bobbi Ricks ANP [address] [place] [address] PCP - General Family Medicine 03/08/21 Jign Brooks PharmD [address] [place] [address] Pharmacist Internal Medicine 03/24/24 documented as of this encounter
--- OUTSIDE RECORDS SUMMARY | 2024-10-05 11:42 | XMS_ITS | Encounter Summary ---
Author Organization [email or web address] Address 75 [facility] 7t [place] [address] Care Team Providers Care Supervisor Detasseling Crew Name Role Phone Bobbi Ricks ELAINA Primary Care Provider [phone] Jing Brooks PharmD Unavailable [phone]- [phone] Reason for Visit * Reason Onset Date Comments Nurse Triage 09/18/2024 Encounter Details Date Type Department Care Team ([facility] st Contact Info) Description 09/18/2024 Telephone [facility] WALK[facility]IN C[facility] 230 [place], [place] [phone] Usha Atkins NP 230 [place] [address] Nurse Triage Social History Tobacco Use Types [...] Frey RN - 09/18/2024 9:22 AM EST bar gauger and lubricator tender Patient presents to walk-in center initialing reporting [...] care at this time. Interpretor ID # [id number] Prabhu documented in this encounter Plan of Treatment Upcoming Encounters Date Type Department Care Team (Late st Contact Info) Description 10/06/2024 1:30 PM EDT Medication Management [facility] MED[facility] 230 [place], [place] [phone] Jing Brooks, PharmD 230 [place] [address] 10/16/2024 10:30 AM EDT Office Visit [facility] OPTOMETRY [address] [place], [place] [phone] Faye Quinn, OD 267 [place] [address] 10/26/2024 11:00 AM EDT Office Visit [facility] MED[facility]INE 230 [place] [address] Bobbi Ricks ANP 230 [place] [address] documented as of this encounter Goals Goal [...] as of this encounter Care Teams Supervisor Detasseling Crew Relationship Specialty Start Date End Date Bobbi Ricks ANP 230 [place] [address] PCP - General Family Medicine 03/08/21 Jing Brooks PharmD [address] [place] [address] Pharmacist Internal Medicine 03/24/24 documented as of this encounter
--- OUTSIDE RECORDS SUMMARY | 2024-10-05 11:42 | XMS_ITS | Encounter Summary ---
Author Organization [employer] Address [address] [place] [address] 7t [place] [address] Care Team Providers Care Team Otr Truck Driver Name Role Phone Bobbi Ricks Primary Care Provider [phone] Jing Brooks PharmD Unavailable [phone] Encounter Details Date Type Department Care Team (Late st Contact Info) Description 12/21/2022 Orders Only [facility] CHC MED & PEDS 505 [place], [place] [phone] Ayse Barrientos LPN Social History Tobacco Use [...] Description 10/06/2024 1:30 PM EDT Medication Management [facility] MEDICINE 230 [place], [place] [phone] Jing Brooks, PharmD 230 [place] [address] 10/16/2024 10:30 AM EDT Office Visit [facility] OPTOMETRY 267 [place] [address] Faye Quinn, OD 267 [place] [address] 10/26/2024 11:00 AM EDT Office Visit [facility] MEDICINE 230 [place] [address] Bobbi Ricks ANP 230 [place] [address] documented as of this encounter Visit Diagnoses Not on filedocumented in this encounter Additional Health Concerns Assessment Noted Time PHQ-9 Depression Total Score: 14 023 9:40 AM EDT documented as of this encounter Care Teams Team Otr Truck Driver Relationship Specialty Start Date End Date Bobbi Ricks ANP [address] [place] [address] PCP - General Family Medicine 03/08/21 Jing Brooks PharmD [address] [place] [address] Pharmacist Internal Medicine 03/24/24 documented as of this encounter
--- OUTSIDE RECORDS SUMMARY | 2024-10-05 11:42 | XMS_ITS | Encounter Summary ---
Author Organization [employer] Address 75 [facility] 7t [place] [address] Care Team Providers Care Community Health Advisor Name Role Phone Bobbi Ricks Primary Care Provider [phone] Jing Brooks PharmD Unavailable [phone]- [phone] Reason for Visit * Reason Comments Med Refill Encounter Details Date Type Department Care Team ([facility] st Contact Info) Description 06/23/2024 Refill [facility] CH[facility] MED & PEDS [address] [place], [place] [phone] Bobbi Ricks ANP 230 [facility] [place] [address] Mixed hyperlipidemia Social History Tobacco Use Types [...] Description 10/06/2024 1:30 PM EDT Medication Management [facility] MEDICINE [address] [place] [address] Jing Brooks, PharmD 230 [place] [address] 10/16/2024 10:30 AM EDT Office Visit [facility] OPTOMETRY 267 [place] [address] TarFaye sauceda, OD 267 [place] [address] 10/26/2024 11:00 AM EDT Office Visit [facility] MEDICINE [address] [place] [address] Bobbi Ricks ANP [address] [place] [address] documented as of this encounter Goals Goal Patient Goal Type Associated Problems Recent Progress Patient-Stated? Author Blood Pressure < 140/90 Blood Pressure 159/82(2024 8:49 AM EST) No Rishis-Shelley lugo, Jing, PharmD Hemoglobin A1c < 7 Result Component 9.6( 2:10 PM EST) No RishisJing Donovan PharmD documented as of this encounter Visit Diagnoses Diagnosis Mixed hyperlipidemia documented in this encounter Additional Health Concerns Assessment Noted Time PHQ-9 Depression Total Score: 14 023 9:40 AM EDT documented as of this encounter Care Teams Community Health Advisor Relationship Specialty Start Date End Date Bobbi Ricks ANP 230 [place] [address] PCP - General Family Medicine 03/08/21 Jing Brooks PharmD 230 [place] [address] Pharmacist Internal Medicine 03/24/24 documented as of this encounter
--- OUTSIDE RECORDS SUMMARY | 2024-10-05 11:42 | XMS_ITS | Encounter Summary ---
Author Organization [employer] Address 75 [facility] 7t [place] [address] Care Team Providers Care Business Process Lead Name Role Phone Bobbi Ricks ELAINA Primary Care Provider [phone] Jing Brooks PharmD Unavailable [phone]- [phone] Reason for Visit * Reason Comments Nasal Congestion Fatigue Dry Mouth Encounter Details Date Type Department Care Team (Late st Contact Info) Description 09/18/2024 10:00 AM EST Office Visit [facility] WALK[facility] 230 [place], [place] [phone] Usha Atkins NP 230 [place] [address] Shortness of breath (Primary Dx); Dry mouth; [...] daily. Use in each nostril as directed Mongolian Translation: Provided by [facility] staff member Ana documented in this encounter Plan of Treatment Upcoming Encounters Date Type Department Care Team (Late st Contact Info) Description 10/06/2024 1:30 PM EDT Medication Management [facility] MEDICINE 230 [place] [address] Jing Brooks PharmD 230 [place] [address] 10/16/2024 10:30 AM EDT Office Visit [facility] OPTOMETRY 267 [place] [address] Faye Quinn, OD 267 [place] [address] 10/26/2024 11:00 AM EDT Office Visit [facility] MEDICINE 230 [place] [address] Bobbi Ricks ANP 230 [place] [address] documented as of this encounter Goals Goal Patient Goal Type Associated Problems Recent Progress Patient-Stated? Author Blood Pressure < 140/90 Blood Pressure 159/82(2024 8:49 AM EST) No Rishis-Alma Rosalessa, PharmD Hemoglobin A1c [...] AM EST Narrative 09/18/2024 11:15 AM EST ?[facility] ?[address] ?[place] [address] ?XRay Report ? Signed ? Patient: Steve Caceres ?MR#: [id number] ?? [id number] ? : 1955 ?Acct:[id number] ? Age/Sex: 69 / M ?ADM Date: 09/18/24 ? Loc: HO.HHCX ? Attending Dr: Usha Atkins ? Ordering Physician: Usha Atkins ?? Date of Service: 09/18/24 ?? Procedure(s): XR chest 2V ?? Accession Number(s): [id number] ? cc: Usha Atkins ? EXAMINATION: ?? [...] DD/ 1049 ? TD/TT: 09/18/24 1057 ? Senior Administrative Services Officer: ? Procedure Note Merritt, Image - 09/18/2024 [facility] 230 [place] [address] XRay Report Signed Patient: Patel Caceres#: [id number] : 5Acct:[id number] Age/Sex: 69 / MADM Date: 09/18/24 Loc: HO.HHCX Attending Dr: Usha Atkins Ordering Physician: Usha Atkins Date of Service: 09/18/24 Procedure(s): XR chest 2V Accession Number(s): [id number] cc: Usha Atkins EXAMINATION: XR CHEST CLINICAL [...] 09/18/24 1112 DD/ 1049 TD/TT: 09/18/24 1057 Senior Administrative Services Officer: Usha Atkins GUITAR REPAIRER IMG XR PROCEDURES Final Result * POCT COVID-19 Ag Shah ID NOW (09/18/2024 10:17 AM EST) Coronavirus Antigen PCR Negative Negative, Indeterminate, None Detected, Invalid, Specimen unsatisfactory for evaluation, Weakly Positive Swab 09/18/2024 10:1 7 AM EST Usha Atkins GUITAR REPAIRER POINT OF CARE TEST ENTER/EDIT O RDERABLES Final Result * Influenza A (ID NOW Rapid Molecular) (09/18/2024 10:17 AM EST) Influenza A Negative Negative, Indeterminate [facility] Swab 09/18/2024 10:1 7 AM EST us Usha Atkins GUITAR REPAIRER POINT OF CARE TEST ENTER/EDIT O RDERABLES Final Result Performing Organization Address City/[facility]/ZIP Co de Phone Number [facility] [address] [place] [address] [phone] * Influenza B (ID NOW Rapid Molecular) (09/18/2024 10:17 AM EST) Influenza B Negative Negative, Indeterminate [facility] Swab 09/18/2024 10:1 7 AM EST Usha Muro GUITAR REPAIRER POINT OF CARE TEST ENTER/EDIT O RDERABLES Final Result Performing Organization Address City/[facility] Co de Phone Number [facility] [address] [place] [address] [phone] documented in this encounter Visit Diagnoses Diagnosis Shortness of breath- Primary Dry mouth Disturbance of salivary secretion Elevated blood pressure reading in office with diagnosis of hypertension Runny nose Other diseases of nasal cavity and sinuses documented in this encounter Additional Health Concerns Assessment Noted Time PHQ-9 Depression Total Score: 14 023 9:40 AM EDT documented as of this encounter Care Teams Business Process Lead Relationship Specialty Start Date End Date Bobbi Ricks ANP 230 [place] [address] PCP - General Family Medicine 03/08/21 Jing Brooks PharmD 230 [place] [address] Pharmacist Internal Medicine 03/24/24 documented as of this encounter
--- OUTSIDE RECORDS SUMMARY | 2024-10-05 11:42 | XMS_ITS | Encounter Summary ---
Author Organization [employer] Address 75 [facility] 7t [place] [address] Care Team Providers Care Building Equipment Operator Name Role Phone Bobbi Ricks ELAINA Primary Care Provider [phone] Jing Brooks PharmD Unavailable [phone] Encounter Details Date Type Department Care Team (Late st Contact Info) Description 09/11/2024 Telephone [facility] MEDICINE 230 [place] [address] Jing Brooks, PharmD 230 [place] [address] Social History Tobacco Use Types Packs/Day Years [...] Description 10/06/2024 1:30 PM EDT Medication Management [facility] MEDICINE [address] [place] [address] Jing Brooks PharmD 230 [place] [address] 10/16/2024 10:30 AM EDT Office Visit [facility] OPTOMETRY [address] [place] [address] Faye Quinn, OD [address] [place] [address] 10/26/2024 11:00 AM EDT Office Visit [facility] MEDICINE [address] [place] [address] Bobbi Ricks ANP [address] [place] [address] documented as of this encounter Goals Goal [...] documented as of this encounter Care Teams Building Equipment Operator Relationship Specialty Start Date End Date Bobbi Ricks ANP [address] [place] [address] PCP - General Family Medicine 03/08/21 Jing Brooks PharmD 230 [place] [address] Pharmacist Internal Medicine 03/24/24 documented as of this encounter
--- OUTSIDE RECORDS SUMMARY | 2024-10-05 11:42 | XMS_ITS | Encounter Summary ---
Author Organization [employer] Address 75 [facility] 7t [place] [address] Care Team Providers Care Director Of Vocational Training Name Role Phone Bobbi Ricks Primary Care Provider [phone] Jing Brooks PharmD Unavailable [phone] Encounter Details Date Type Department Care Team (Late st Contact Info) Description 09/08/2024 Orders Only [facility] MEDICINE 230 [place], [place] [phone] Bobbi Ricks ANP 230 [place] [address] Mixed hyperlipidemia Social History Tobacco Use Types [...] Description 10/06/2024 1:30 PM EDT Medication Management [facility] MEDICINE [address] [place] [address] Jing Brooks PharmEssence 230 [place] [address] 10/16/2024 10:30 AM EDT Office Visit [facility] OPTOMETRY [address] [place] [address] Tarka, Faye, OD 267 [place] [address] 10/26/2024 11:00 AM EDT Office Visit [facility] MEDICINE [address] [place] [address] Bobbi Ricks ANP 230 [place] [address] documented as of this encounter Goals Goal [...] of this encounter Care Teams Director Of Vocational Training Relationship Specialty Start Date End Date Bobbi Ricks ANP 230 [place] [address] PCP - General Family Medicine 03/08/21 Jing Brooks, JasminD 230 [place] [address] Pharmacist Internal Medicine 03/24/24 documented as of this encounter
--- OUTSIDE RECORDS SUMMARY | 2024-10-05 11:42 | XMS_ITS | Encounter Summary ---
Author Organization [employer] Address 75 [facility] 7t [place] [address] Care Team Providers Care Alcoholic Counselor Name Role Phone Bobbi Ricks Primary Care Provider [phone] Jing Brooks PharmD Unavailable [phone]- [phone] Reason for Visit * Reason Onset Date Comments Appointment Request 10/29/2022 Encounter Details Date Type Department Care Team ([facility] st Contact Info) Description 10/29/2022 Telephone [facility] MEDICINE 230 [place] [address] Bobbi Ricks ANP 230 [place] [address] Appointment Request Social History Tobacco Use Types [...] Miscellaneous Notes * Telephone Encounter - Von Gil - 10/29/2022 10:38 AM EDT Jeronimo Alexander with [facility] requesting an appt with provider. Transfer And Pumphouse Operator Chief tried booking but provider has nothing available at this time. Please contact pt at [phone] Kenyan Speaker documented in this encounter Plan of Treatment Upcoming Encounters Date Type Department Care Team (Late st Contact Info) Description 10/06/2024 1:30 PM EDT Medication Management [facility] MEDICINE [address] [place] [address] Jing Brooks, Julia 230 [place] [address] 10/16/2024 10:30 AM EDT Office Visit [facility] OPTOMETRY [address] [place] [address] Faye Quinn, OD 267 [place] [address] 10/26/2024 11:00 AM EDT Office Visit [facility] MEDICINE [address] [place] [address] Bobbi Ricks ANP [address] [place] [address] documented as of this encounter Visit Diagnoses Not on filedocumented in this encounter Care Teams Alcoholic Counselor Relationship Specialty Start Date End Date Bobbi Ricks ANP [address] [place] [address] PCP - General Family Medicine 03/08/21 Jing Brooks, JasminD [address] [place] [address] Pharmacist Internal Medicine 03/24/24 documented as of this encounter
--- OUTSIDE RECORDS SUMMARY | 2024-10-05 11:42 | XMS_ITS | Clinical Summary ---
Author Organization [employer] Address [address] [place] [address] 7t [place] [address] Care Team Providers Care Supply Chain Manager Name Role Phone Bobbi Ricks Primary Care Provider [phone] Jing Brooks PharmD Unavailable [phone] Allergies Active Allergy Reactions Criticality Noted Date [...] pe 2 diabetes mellitus with hyperlipidemia (CMS/HCC) ([facility]) 1 kit 3 times daily. 1 kit 024 Active TRUEplus Lancets 33G [facility] TEST BLOOD SUGAR THREE TIMES DAILY 100 [...] :Type 2 diabetes mellitus with hyperlipidemia (CMS/HCC) ([facility]),Dry skin Apply topically if needed for [...] e 2 diabetes mellitus with hyperlipidemia (CMS/HCC) ([facility]),Hyperte nsive renal disease Take 1 tablet [...] 18 g 025 2025 Active Continuous Glucose Lepidopterist (FreeStyle Yanni 3 Nunez) deviceIndications :Type 2 diabetes mellitus with hyperlipidemia (CMS/HCC) ([facility]) 1 each Use as directed. 1 each Active Continuous Glucose Sensor (FreeStyle Yanni 3 Plus Sensor) miscIndications:T ype 2 diabetes mellitus with hyperlipidemia (CMS/HCC) (CMS/[facility]) 1 each Use as directed. 2 each Active glucose blood (FreeStyle Precision Kameron Test) test stripIndications: Type 2 diabetes mellitus with hyperlipidemia (CMS/HCC) (CMS/[facility]) Test blood sugar 3 times daily 100 each 11 025 2025 Active Multiple Vitamins-Minerals (CertaVite/Antiox idants) tablet Take 1 tablet by mouth at bedtime. Active spironolactone (Aldactone) 25 MG tabletIndications :Essential hypertension Take one half tablet once daily 45 tablet 3 Active insulin degludec (Tresiba FlexTouch) 100 UNIT/ML injection Inject 10 Units under the skin in the morning. 3 mL 12 025 2025 Active insulin pen needle (CareTouch Pen [place]) 33G x 4 mm misc Use with insulin once daily as instructed 100 each 12 025 2025 Active Multiple Vitamins-Iron (Tab-A-Stephen/Iron/ Beta Carotene) tablet Take 1 tablet by mouth Once per day. 024 2024 Discontinued(N on-compliance) FREESTYLE LITE test stripIndications: Type 2 diabetes mellitus with diabetic polyneuropathy (CMS/HCC),Type 2 diabetes mellitus with hyperglycemia (CMS/HCC) TEST BLOOD SUGAR THREE TIMES DAILY 100 strip 6 024 2024 Discontinued(O ther) Continuous Glucose Transmitter (Dexcom G6 transmitter) miscIndications:T ype 2 diabetes mellitus with hyperglycemia, without long-term current use of insulin ([facility]),Acquire d absence of right hand 1 each by Other route Use as directed. 1 each 3 024 2024 Discontinued(O ther) Continuous Glucose Sensor (Dexcom G6 Sensor) miscIndications:T ype 2 diabetes mellitus with hyperglycemia, without long-term current use of insulin ([facility]),Acquire d absence of right hand 1 each every 10 (ten) days. 3 each 12 024 2024 Discontinued(O ther) Continuous Glucose Lepidopterist (Dexcom G6 senior sharepoint architect) deviceIndications :Type 2 diabetes mellitus with hyperglycemia, without long-term current use of insulin ([facility]),Acquire d absence of right hand Use as directed 1 each 024 2024 Discontinued(O ther) semaglutide (Ozempic, 1 MG/DOSE,) 2 MG/1.5ML solution pen-injectorIndic ations:Type 2 diabetes mellitus with hyperlipidemia (CMS/HCC) ([facility]) Inject 1 mg under the skin [...] 01/26/2024 Acute kidney injury superimposed on CKD ([facility] ) 11/20/2023 Assessment & Plan (11/20/2023 [...] Encounters Date Type Department Care Team Description 10/05/2024 Orders Only GENERIC EXTERNAL DATA DEPARTMENT Provider, Generic External Data 10/02/[address] [address] Jing Brooks PharmD Care Coordination 09/30/[address] [address] Jing Brooks PharmD Pt status check 09/24/2024 8:40 AM EST Office Visit [facility] [address] [place] [address] Dony Dai MD Essential hypertension (Primary Dx); Type 2 diabetes mellitus with hyperglycemia, without long-term current use of insulin ([facility]) 09/24/[address] [address] Bobbi Ricks ANP 09/23/[address] [address] Bobbi Ricks ANP Results; Critical result plan 09/23/[address] [address] Bobbi Ricks ANP Critical lab 09/23/2024 Orders Only [address] [address] Bobbi Ricks ANP 09/23/2024 Telephone [facility] [address] [place] [address] Bobbi Ricks ANP Paperwork/Forms 09/23/2024 Travel 09/18/2024 10:00 AM EST Office Visit [facility] [address] [place] [address] Usha Atkins NP Shortness of breath (Primary Dx); Dry mouth; Elevated blood pressure reading in office with diagnosis of hypertension; Runny nose 09/18/2024 Telephone [facility] [address] [place] [address] Usha Atkins NP Results 09/18/2024 Telephone [facility] [address] [place] [address] Usha Atkins NP Nurse Triage 09/11/[address] [address] Jing Brooks PharmD 09/08/2024 Orders Only [address] [address] Bobbi Ricks ANP Mixed hyperlipidemia 07/27/[address] [address] Sana Hopson MA August recall from Last 3 Months Immunizations Name Administration [...] (168 lb) 09/24/2024 8:49 AM EST Height 180.3 cm (5' 11 ) 06/03/2024 2:54 PM EST Body Mass Index 23.43 06/03/2024 2:54 PM EST Plan of Treatment Upcoming Encounters Date Type Department Care Team (Late st Contact Info) Description 10/06/2024 1:30 PM EDT Medication Management [facility] [address] [place] [address] Jing Brooks, PharmD [address] [place] [address] 10/16/2024 10:30 AM EDT [facility] Visit [facility] [address] [place] [address] Faye Quinn, OD [address] [place] [address] 10/26/2024 11:00 AM EDT Office Visit [facility] [address] [place] [address] Bobbi Ricks, ANP [address] [place] [address] Health Maintenance Due Date Last Done Comments [...] 10/15/2024 10/16/2023 Depression Screening 10/23/2024 10/24/2023, 11/30/19 Diabetes: Foot Exam 11/25/2024 11/26/2023, 11/26/2023, 11/26/2023 [...] Procedure Name Priority Date/Time Associated Diagnosis Comments CBC WITH AUTO DIFFERENTIAL Routine 10/05/2024 10:25 AM EDT POCT GLUCOSE Routine 09/24/2024 8:51 AM EST Type 2 diabetes mellitus with hyperglycemia, without long-term current use of insulin (CMS/HCC) ALBUMIN, RANDOM URINE W/CREATININE Routine 09/23/2024 2:58 [...] Relevant to Health Maintenance Results * (ABNORMAL) CBC auto differential (10/05/2024 10:25 AM EDT) White Blood Count 3.8(L) 4.8 - 10.8 X10*3/uL [facility] Red Blood Count 4.83 4.60 - 5.80 X10*6/uL [facility] Hemoglobin 16.7 14.0 - 18.0 g/dl [facility] Hematocrit 46.9 42.0 - 52.0 % [facility] Mean Corpuscular Volume 97.1 80.0 - 98.0 fL [facility] Mean Corpuscular Hemoglobin 34.6(H) 27.0 - 33.0 pg [facility] Mean Corpuscular HGB Conc 35.6 31.0 - 36.0 g/dl [facility] Red Cell Distribution Width 12.6 11.0 - 16.0 % [facility] Platelet Count 159(L) 160 - 400 X10*3/uL [facility] Mean Platelet Volume 8.9(L) 9.4 - 12.4 fL [facility] Neutrophils Percent Auto 51.2 45 - 73 % [facility] Imm Gran Pct Auto 0.3 0.0 - 0.4 % [facility] Lymphocytes Percent Auto 35.2 20 - 40 % [facility] Monocytes Percent Auto 8.9 2 - 11 % [facility] Eosinophils Percent Auto 3.4 0 - 4 % [facility] Basophils Percent Auto 1.0 0 - 2 % [facility] NRBC Pct Auto 0.0 0.0 - 0.2 /100WBC [facility] Neutrophils Absolute Auto 2.0 2.0 - 8.3 x10*3/uL [facility] Imm Gran Abs Auto 0.01 0.00 - 0.03 X10*3/uL [facility] Lymphocytes Absolute Auto 1.4 1.2 - 4.9 X10*3/uL [facility] Monocytes Absolute Auto 0.3 0.1 - 1.2 X10*3/uL [facility] Eosinophils Absolute Auto 0.1 0.0 - 0.4 X10*3/uL [facility] Basophils Absolute Auto 0.0 0.0 - 0.2 X10*3/uL [facility] NRBC Abs Auto 0.000 0.0 - 0.012 X10*3/uL [facility] 10/05/2024 10:2 5 AM EDT 10/05/2024 11:19 AM EDT us Generic External Data Provider LAB BLOOD ORDERAB LES Final Result Performing Organization Address City/State/[facility] Co de Phone Number [facility] [address] [place] [phone] * (ABNORMAL) POCT glucose manually resulted (09/24/2024 8:51 AM EST) Glucose Blood, POC 273(A) 60 - 200 mg/dL Blood Capillary blood specimen / Unknown 09/24/2024 8:51 AM EST Dony Dai MD POINT OF CARE TEST ENTER/EDIT OR DERABLES Final Result * (ABNORMAL) Albumin, Random Urine W/Creatinine (09/23/2024 2:58 PM EST) Creatinine, Urine 33.43 mg/dL [facility] Microalbumin Urine 14.0 mg/L [facility] Microalbum Creatinine Ratio Ur 41.8(H) <30 ug/mg cr [facility] Comment:Albumin/Creatinine R alejandro Reference Ranges: Normal: < 30 ug/mg creatinine Microalbuminuria: 30 - 300 ug/mg creatinineClinical Albuminuria: > 300 ug/mg creatinine 09/23/2024 2:58 PM EST 09/23/2024 4:20 PM EST us Bobbi Ricks ANP LAB URINE ORDERABLES Final Resul t [facility] [address] [place] [address] [phone] * (ABNORMAL) Basic Metabolic Panel (09/23/2024 2:58 PM EST) Sodium 138 135 - 145 mmol/L [facility] Potassium 3.8 3.3 - 5.1 mmol/L [facility] Chloride 102 96 - 108 mmol/L [facility] Carbon Dioxide 27 22 - 29 mmol/L [facility] Anion Gap 13 12 - 20 [facility] Urea Nitrogen (BUN) 19(H) 9 - 16 mg/dL [facility] Creatinine, Serum 1.52(H) 0.5 - 1.4 mg/dL [facility] Estimated Glomerular Filt Rate 46 [facility] Comment:Chronic Kidney Disea se: Estimated GFR < 60 mL/min/1.73f2Kyrmfy Kidney Disease: Estimated GFR < 15 mL/min/1.73m2 Glucose 562(HH) 60 - 115 mg/dL [facility] Comment:Critical value for t est(GLU): Results called to and readback by: AIDE Castillo RN Person calling: BOOM Date:09/23/24 Time: 1648 Calcium 9.4 8.4 - 10.2 mg/dL [facility] 09/23/2024 2:58 PM EST 09/23/2024 4:15 PM EST us Bobbi Ricks ANP LAB BLOOD ORDERABLES Final Resul t Performing Organization Address City/[facility]/ZIP Co de Phone Number [facility] [address] [place] [address] [phone] * (ABNORMAL) POCT A1C (09/23/2024 2:10 PM EST) Hemoglobin A1C 9.6(A) 4.0 - 6.0 % QC Media Lot # [id number] Lot# Expiration Date [id number] Blood 09/23/2024 2:10 PM EST us Bobbi DELANEY POINT OF CARE TEST ENTER/EDIT OR DERABLES Final Result * XR Chest 2 Views (09/18/2024 10:49 AM EST) Anatomical Region Laterality Modality Chest Radiographic Liz ging 09/18/2024 10:4 9 AM EST Narrative 09/18/2024 11:15 AM EST ?[facility] ?[address] ?[place] [address] ?XRay Report ? Signed ? Patient: Caceres,Steve ?MR#: [id number] ?? [id number] ? : 1955 ?Acct:[id number] ? Age/Sex: 69 / M ?ADM Date: 09/18/24 ? Loc: HO.HHCX ? Attending Dr: Usha Atkins ? Ordering Physician: Usha Atkins ?? Date of Service: 09/18/24 ?? Procedure(s): XR chest 2V ?? Accession Number(s): [id number] ? cc: Usha Atkins ? EXAMINATION: ?? [...] DD/ 1049 ? TD/TT: 09/18/24 1057 ? Database Analyst: ? Procedure Note Donotuseinterpreter, Image - 09/18/2024 [facility] [address] [place] [address] XRay Report Signed Patient: Patel Caceres#: [id number] : 5Acct:[id number] Age/Sex: 69 / MADM Date: 09/18/24 [facility] Dr: Usha Atkins Ordering Physician: Usha Atkins Date of Service: 09/18/24 Procedure(s): XR chest 2V Accession Number(s): [id number] cc: Usha Atkins EXAMINATION: XR CHEST CLINICAL [...] 09/18/24 1112 DD/ 1049 TD/TT: 09/18/24 1057 Database Analyst: us Usha Atkins NP IMG XR PROCEDURES Final Result * Influenza B (ID NOW Rapid Molecular) (09/18/2024 10:17 AM EST) Influenza B Negative Negative, Indeterminate [facility] Swab 09/18/2024 10:1 7 AM EST us Usha Atkins NP POINT OF CARE TEST ENTER/EDIT O RDERABLES Final Result [facility] [address] [place] [address] [phone] * Influenza A (ID NOW Rapid Molecular) (09/18/2024 10:17 AM EST) Influenza A Negative Negative, Indeterminate [facility] Swab 09/18/2024 10:1 7 AM EST [facility] [employer] POINT OF CARE TEST ENTER/EDIT O RDERABLES Final Result Performing Organization Address City/[facility]/ZIP Co de Phone Number [facility] [address] [place] [address] [phone] * POCT COVID-19 Ag Shah ID NOW (09/18/2024 10:17 AM EST) Pathologist [facility] Coronavirus Antigen PCR Negative Negative, Indeterminate, None Detected, Invalid, Specimen unsatisfactory for evaluation, Weakly Positive Swab 09/18/2024 10:1 7 AM EST [facility] POINT OF CARE TEST ENTER/EDIT O RDERABLES Final Result * (ABNORMAL) Lipid Panel, Standard (06/09/2024 9:05 AM EST) Triglycerides 126 <150 mg/dL [facility] Comment:Desirable Triglyceri de: less than 150 mg/dLBorderline High Triglyceride 150-199 mg/dLHigh Triglyceride: 200-499 mg/dLVery High Triglyceride: greater than or equal to 5OO mg/dL Cholesterol 104 <200 mg/dL [facility] Comment:Desirable Cholestero l: less than 200 mg/dLBorderline High Cholesterol: 200-239 mg/dLHigh Cholesterol: greater than 239 mg/dL LDL Cholesterol Calculated 42 <100 mg/dL [facility] Comment:Desirable LDL: less than 100 mg/dLNear [...] AM EST 06/09/2024 11:22 AM EST Bobbi [facility] LAB BLOOD ORDERABLES Final Resul t Performing Organization Address [facility] Co de Phone Number [facility] [address] [place] [address] [phone] * Hepatitis A,B,C Profile (03/18/2024 11:25 AM EDT) Hepatitis A IgM Nonreactive Nonreactive [facility] Comment:IgM antibodies to STEPHENS V not detected; does not exclude earlyacute or recovered HAV infection. ~Hepatitis B Surface Antibody REACTIVE Nonreactive [facility] Comment:REACTIVE: > 11.99 mI U/mL Hepatitis B Core Antibody Reactive Nonreactive [facility] Comment:Presumptive evidence of anti-HBc. Hepatitis C Antibody Nonreactive Nonreactive [facility] Comment:Antibodies to HCV no t detected; does not exclude early acuteHCV infection. Hepatitis B Surface Ag Negative Negative [facility] Blood Venous blood specimen / Unknown 03/18/2024 11:25 AM EDT 03/18/2024 1:09 PM EDT Bobbi Ricks [facility] LAB BLOOD ORDERABLES Final Resul t Performing Organization Address [facility] Co de Phone Number [facility] [address] [place] [address] [phone] from Last 3 Months or Most Recently Relevant to Health Maintenance Insurance [facility] [facility] [address] [place] [address] DENTAL - [facility] [address] [place] [phone] [address] [place] [phone] [address] [place] [address] Care Teams Supply Chain Manager Relationship Specialty Start Date End Date Bobbi Ricks ANP [address] [place] [address] PCP - General Family Medicine 03/08/21 Jing Brooks PharmD [address] [place] [address] Pharmacist Internal Medicine 03/24/24
--- OUTSIDE RECORDS SUMMARY | 2024-10-05 11:43 | XMS_ITS | Encounter Summary ---
Author Organization [employer] Address [address] [facility] 7t [place] [address] Care Team Providers Care Life Skills Trainer Name Role Phone Bobbi Ricks Primary Care Provider [phone] Jing Brooks PharmD Unavailable [phone] Reason for Visit * Reason Onset Date Comments Hospital Follow-up 11/29/2023 Encounter Details Date Type Department Care Team ([facility] st Contact Info) Description 11/29/2023 Telephone [facility] [address] [place] [address] Bobbi Ricks ANP [address] [place] [address] Hospital Follow-up Social History Tobacco Use Types [...] a HDF f/u after recent admission to [facility] for MT on 11/26/23. Pt is stable [...] from pt requesting a HDF appt. Hospital: [facility] Date of admission: 11/25 Discharge date: 11/28 Diagnosed: Acute kidney injury documented in this encounter Plan of Treatment Upcoming Encounters Date Type Department Care Team (Late st Contact Info) Description 10/06/2024 1:30 PM EDT Medication Management [facility] [address] [place] [address] Jing Brooks PharmD [address] [place] [address] 10/16/2024 10:30 AM EDT Office Visit [facility] OPTOM[facility] [address] [place] [address] TarFaye sauceda, OD [address] [place] [address] 10/26/2024 11:00 AM EDT Office Visit [facility] [address] [place] [address] Bobbi Ricks ANP [address] [place] [address] documented as of this encounter Goals Goal Patient Goal Type Associated Problems Recent Progress Patient-Stated? Author Blood Pressure < 140/90 Blood Pressure 159/82(2024 8:49 AM EST) No Jing Smith, PharmD Hemoglobin A1c < 7 Result Component 9.6( 2:10 PM EST) No Jing Smith, PharmD documented as of this encounter Visit Diagnoses Not on filedocumented in this encounter Additional Health Concerns Assessment Noted Time PHQ-9 Depression Total Score: 14 023 9:40 AM EDT documented as of this encounter Care Teams Life Skills Trainer Relationship Specialty Start Date End Date Bobbi Ricks ANP [address] [place] [address] PCP - General Family Medicine 03/08/21 Jing Brooks, PharmD [address] [place] [address] Pharmacist Internal Medicine 03/24/24 documented as of this encounter
--- OUTSIDE RECORDS SUMMARY | 2024-10-05 11:43 | XMS_ITS | Encounter Summary ---
Author Organization [employer] Address [address] [place] [address] 7[address] [place] [address] Care Team Providers Care Intraoperative Neuro Tech Name Role Phone Bobbi Ricks Primary Care Provider [phone] Jing Brooks PharmD Unavailable [phone] Encounter Details Date Type Department Care Team (Late st Contact Info) Description 08/14/2022 Orders Only [facility] [address] [place], [place] [phone] Ayse Barrientos LPN Social History Tobacco Use [...] Description 10/06/2024 1:30 PM EDT Medication Management [facility] [address] [place] [address] Jing Brooks, PharmD [address] [place] [address] 10/16/2024 10:30 AM EDT Office Visit [facility] OPTOMETRY [address] [place] [address] Faye Quinn, OD [address] [place] [address] 10/26/2024 11:00 AM EDT Office Visit [facility] MEDICINE [address] [place] [address] Bobbi Ricks ANP [address] [place] [address] documented as of this encounter Visit Diagnoses Not on filedocumented in this encounter Care Teams Intraoperative Neuro Tech Relationship Specialty Start Date End Date Bobbi Ricks ANP [address] [place] [address] PCP - General Family Medicine 03/08/21 Jing Brooks PharmD [address] [place] [address] Pharmacist Internal Medicine 03/24/24 documented as of this encounter
[2024-10-05 12:02] LABS: Alanine Aminotransferase 40 U/L (0-40); Albumin Level 4.2 g/dL (3.5-5.0); Anion Gap 11 (12-20); Aspartate Amino Transferase 30 U/L (5-37); Bilirubin Total 0.5 mg/dL (0.0-1.0); Blood Urea Nitrogen 20 mg/dL (9-16); Calcium 9.5 mg/dL (8.4-10.2); Carbon Dioxide 25 mmol/L (22-29); Chloride 110 mmol/L (96-108); Estimated Glomerular Filt Rate 55; Glucose Random 271 mg/dL (60-115); Potassium 4.2 mmol/L (3.3-5.1); Sodium 142 mmol/L (135-145); Total Protein 8.1 g/dL (6.5-8.0)
[2024-10-05 12:16] LABS: Alkaline Phosphatase 93 U/L (39-117)
== END 2024-10-05 10:23 | disposition home or self-care (01) ==
LOC: HO.HHCL 10:22
PROVIDERS: Visit Provider Internal Medicine Hypertension Specialist
DX: N17.0 Acute kidney failure with tubular necrosis (principal); N18.31 Chronic kidney disease, stage 3a; N17.9 Acute kidney failure, unspecified
CPT/HCPCS: 36415; 80053; 85025

== ENCOUNTER 2024-11-04 12:25 | Outpatient (AMB) | payer OTHER, SELFPAY ==
--- NOTE | 2024-11-04 12:58 | MHC.OFFVIS ---
Vital Signs 11/04/24 13:03 Height 5 ft 11 in Weight 173 lb BMI 24.1 BP 162/71 H Blood Pressure Location Rt brachial Position Sitting Pulse 60 Intake Visit Reasons: Abscess of ananl or rectal region Intake Note: Patient referred by pcp Dr. Lunsford for abscess on rectal region. Patient c/o: feels like there is a cut there. Reports warm compresses help. Denies diarrhea, constipation. Apprentice Funeral Director Required: Yes Accompanied by: Self / Same As Patient Allergies amlodipine Adverse Reaction (Unknown, Verified 11/04/24 12:59) leg edema Medication List - Last Reconciled 11/04/24 by Rock Murphy MD acetaminophen ER 650 mg PO Q8H PRN aspirin 81 mg PO QAM atenolol 100 mg PO DAILY atorvastatin 80 mg PO BEDTIME 30 days blood sugar diagnostic (FreeStyle Lite Strips) 3times a day cholecalciferol (vitamin D3) 50 mcg PO QAM docusate sodium 100 mg PO BID PRN empagliflozin (Jardiance) 10 mg PO DAILY folic acid 1 mg PO DAILY folic acid 1 mg PO DAILY gabapentin 600 mg PO BEDTIME hydralazine 50 mg PO TID isosorbide mononitrate ER 120 mg PO DAILY lancets (TRUEplus Lancets) 3 times a day levothyroxine 125 mcg PO QAM melatonin 6 mg PO BEDTIME PRN multivitamin with iron 1 tab PO DAILY pantoprazole 40 mg PO QAM ranolazine ER 500 mg PO BID tamsulosin 0.4 mg PO QPM HPI HPI Abscess of ananl or rectal region: Details: 69-year-old male referred for a recurrent area of swelling and drainage in the perianal region. He says that he has had this for over a year now. He would notice swelling on the left side of his perianal area and some drainage on and off. Review of his records shows that he was admitted for an abscess of the left perianal area a year ago. An I&D was done at that time He states that this area has not really healed completely. He describes pain and swelling periodically. [facility] Medical History (Updated 11/04/24 @ 14:01 by Rock Murphy MD) Perianal infection Acquired hypothyroidism Dyslipidemia NSVT (nonsustained ventricular tachycardia) Atherosclerotic cardiovascular disease Coronary artery arteriosclerosis Essential hypertension Type 2 diabetes mellitus with diabetic polyneuropathy Surgical History History of colon resection Hx of colonoscopy History of cardiac catheterization Family History Father No problems noted. Mother No problems noted. Social History Household Members: None [facility] Do you presently have visiting nurse or other home services: No Alcohol intake: current Alcohol intake frequency: holidays/special occasions only Comment: pt refused camera in room, states unable to sleep with light from equipment Patient Tobacco Use Status: Never used Tobacco Second Hand Smoke Exposure: No Advance Directives Date on File: 10/03/20 service: No Review of Systems Const Denies chills and Denies fever(s) Card Denies chest pain, Denies dyspnea and Denies dyspnea on exertion Resp Denies cough, Denies dyspnea and Denies dyspnea on exertion GI Denies hematochezia and Denies change in bowel habits Denies hematuria and Denies difficulty urinating Musc Denies back pain and Denies limited range of motion Neuro Denies focal weakness and Denies convulsions Psych Denies depression and Denies mood swings Physical Exam Vital Signs: Last Vital Signs Pulse 60 11/04/24 13:03 BP 162/71 H 11/04/24 13:03 BMI result Body Mass Index 24.1 Const General: comfortable and no acute distress Orientation/consciousness: patient oriented x3 Neck Neck: Yes no lymphadenopathy Resp Auscultation: clear to auscultation bilaterally Cardio Rhythm: regular rhythm GI Other: Rectal exam shows two sinuses in the perianal region, about 3 cm from the anal verge with no obvious cord like induration to the anal canal Palpation (GI): Soft to palpation, nontender and no guarding Neuro General: patient oriented x3 Office Procedures Anoscopy He was in pj-knife position. The anoscope was gently inserted. A full examination of the anal canal was done. He did have small internal hemorrhoids. There was no induration or any obvious sinus in the anal canal. There was no swelling, no tenderness. There was no bleeding. There were no lesions in the anal canal. [id number] Assessment & Plan Assessment & Plan (1) Perianal infection: Code(s): K62.89 - Other specified diseases of anus and rectum Category: Medical Plan: Examination revealed 2 sinuses in the perianal area on the left as described above. This is probably a perianal cyst versus a fistulous disease into the anal canal. I therefore told him that it may be best to proceed with an exam under anesthesia. We may need to do excision of this area or do a fistulotomy or seton placement. I explained to him the technique of all these procedures. I reviewed the risks including but not limited to bleeding, infections and postop pain. I also reviewed with him what to expect postoperatively He says he understands. A Surinamese automotive parts interpreter was used to explained the above. Coding Level of Care Code New Pt Level 3 (98367) Diagnoses Perianal infection K62.89 CPT Codes Details - CPT: 54092-Nsvwjcnj ([id number])
[2024-11-04 13:03] VITALS: BP 162/71; PULSE 60; BMI 24.1
--- OUTSIDE RECORDS SUMMARY | 2024-11-04 14:25 | XMS_ITS | Clinical Summary ---
Author Organization [facility] Address [address] [facility] [address] [place] [address] Phone Care Team Providers Care Bindery Supervisor Name Role Phone Bobbi Ricks NP Primary Care Provider [phone] Allergies Active Allergy Reactions Criticality Noted Date Comments Amlodipine Other (see comments) 09/30/2020 Medications aspirin (ST DEBORAH) 81 MG EC tablet Take 1 tablet by mouth 1 (one) time each day Active Cholecalciferol 50 MCG (1999) capsule Take 1 capsule by mouth 1 [...] Diabetes: Hemoglobin A1C 01/24/2024 10/24/2023 Influenza Vaccine (Season Ended) 2025 05/16/2020, 04/08/2019, 05/29/2018, Additional history exists Pneumococcal Vaccine: 65+ Years Completed 03/18/2023, 05/27/2020, 12/03/2016, Additional history exists Hepatitis B Vaccine Aged Out 04/05/2023, 04/26/2011, 10/12/2010 No longer eligible based on patient's age to complete this topic Insurance [facility] MCR ([id number]) [facility] SNP ([id number]) Care Teams Bindery Supervisor Relationship Specialty Start Date End Date Bobbi Ricks NP PCP - General Nurse Practitioner 07/04/23
--- OUTSIDE RECORDS SUMMARY | 2024-11-04 14:26 | XMS_ITS | Data Portability ---
Author Organization [employer] Address [address] [place] [id number] Care Team Providers Care Fur Storage Clerk Name Role Phone ALIYAH GILLIAM Primary Care [...] sugar was high today at 350. VSS. Bending Machine Set Up Operator on site reports no acute distress. POC [...] recorded. Lab BMP, serum or plasma 2023 024 [facility], [address] [place] [address], [id number] 4 18:27:34 hemoglobin + hematocrit, blood 2023 024 [facility], [address] [place] [address], [id number] 4 18:28:18 Referral None recorded. Procedures None recorded. Surgeries None recorded. Imaging electrocard iogram 2023 [facility], [address] [place] [address], [id number] 4 18:26:51 Medication Orders ketorolac 15 mg/mL injection solution 2023 024 [facility], [address] [place] [address], [id number], 4 18:21:13 sodium chloride 0.9 % intravenous solution 2023 024 [facility], [address] [place] [address], [id number], 4 18:21:13 metoclopram amanda 5 mg/mL injection solution 2023 024 [facility], [address] [place] [address], [id number], 4 18:21:13 Patient TargetsNo targets recorded. Patient InstructionsNo instructions recorded. Reason for Referral None Reported. Results Created Date Observation Date Name Description Value Unit Range Abnormal Flag Note LastModifiedBy Organization Detail LastModifiedTime 12/20/1912/20/2023 hemog lobin + hemat ocrit , blood Hemoglobin 12.5 Not Available Main - [address], [address] [place] [address] 12/20/2023 18:27:51 12/20/19 24 12/20/2023 hemog lobin + hemat ocrit , blood Hematocrit 37 Not Available [facility] - [address], [address] [place] [address] 12/20/2023 18:27:51 12/20/19 24 12/20/2023 BMP, serum or plasm a BUN 15 Not Available Main - Ins [address], [address] [place] [address] 12/20/2023 17:47:01 12/20/19 24 12/20/2023 BMP, serum or plasm a Ca 1.15 Not Available Main - Ins [address], [address] [place] [address] 12/20/2023 17:47:01 12/20/19 24 12/20/2023 BMP, serum or plasm a CI- 108 Not Available Main - Ins [address], [address] [place] [address] 12/20/2023 17:47:01 12/20/19 24 12/20/2023 BMP, serum or plasm a CRE 1.22 Not Available Main - Ins [address], [address] [place] [address] 12/20/2023 17:47:01 12/20/19 24 12/20/2023 BMP, serum or plasm a GLU 193 Not Available Main - Ins [address], [address] [place] [address] 12/20/2023 17:47:01 12/20/19 24 12/20/2023 BMP, serum or plasm a K+ 5.4 Not Available Main - Ins [address], [address] [place] [address] 12/20/2023 17:47:01 12/20/19 24 12/20/2023 BMP, serum or plasm a Na+ 143 Not Available Main - Ins [address], [address] [place] [address] 12/20/2023 17:47:01 12/20/19 24 12/20/2023 BMP, serum or plasm a tCO2 26 Not Available Main - Ins [address], [address] [place] [address] 12/20/2023 17:47:01 12/20/19 24 12/20/2023 elect neptali balderrama am No observ ation record ed. [address], [phone] 12/20/2023 18:26:50 Result Notes None recorded. Procedures Surgical History None recorded. Imaging Results Imaging Date Name Status LastModified by Organization Details LastModified Time 12/20/2023 electrocardiogram completed [address], [phone] 12/20/2023 18:26:50 Procedure Notes None recorded. Medical [...] Not Available Not Available Not Available FreeStyle [employer]okesmith Lite kit USE DIRECTED TO TEST BLOOD [...] % 170 mm[Hg] 70 mm[Hg] Not Available [employer] 4 17:57:34 Date Recorded Respiratory rate Body temperature Heart rate Oxygen saturation Oxygen saturation in Arterial blood by Pulse oximetry Systolic blood pressure Diastolic blood pressure Provider Name and Address Organization Details Last Updated DateTime 4 20 /min 98.5 [degF] 56 /min 100 % 100 % 216 mm[Hg] 83 mm[Hg] Not Available [employer] 4 17:35:22 Social History None recorded. Functional Status None recorded. Mental Status None recorded. Family History Nothing Reported. Medical History No medical history recorded. Past Encounters Encounter ID Performer Location Encounter Start Date Encounter Closed Date Diagnosis/Indication Diagnosis SNOMED-CT Code Diagnosis ICD10 Code Diagnosis Note [id number] Radha Lindsay MD [facility] - [address] [address] 12/13/2023 14:33:21 03/24/2024 14:12:34 Hyperglycemia 60580144 R73.9 Nocturia 132980664 R35.1 [id number] BECCA NEUMANN MD [facility] - [address] [address] 12/20/2023 17:35:20 12/20/2023 21:28:56 Headache 91942718 R51.9 Evaluation in the field was performed by my drum drier operator colleague, as noted above, I provided real-time [...] or any other concerns. Increased blood pressure 42445715 R03.0 Pt had skipped the dose of [...] BP and ongoing bradycardi a. BP before drum drier operator left 196/70. Headache has resolved. Red flags discussed with the patient Bradycardia 25923403 R00 .1 ECG with sinus bradicardi a. [...] Denson Member ID Guarantor Name 12/13/2023 1 [facility] - DOS ON OR AFTER 2022 - DUAL ELIGIBLE - USP OPTIONS AND ONE CARE (MEDICARE REPLACEMENT/AD VANTAGE - HMO) Steve Caceres [id number] Steve Caceres 12/20/2023 1 [facility] - DOS ON OR AFTER 2022 - DUAL ELIGIBLE - USP OPTIONS AND ONE CARE (MEDICARE REPLACEMENT/AD VANTAGE - HMO) Steve Caceres [id number] Steve Caceres Notes Date Note Type Note [...] provided by RN calling inSpanish speaking only memberOmarcobalt rehabilitation ([facility]) hospitalbrianda RN Bending Machine Set Up Operator POC Test Results from Heather Cotto - [facility] Blood Glucose Measurement (1) [17:59] Blood Glucose: 461 mg/dL iSTAT Chem8+ (2) [17:59] Na: 138 mEq/L K: 4.8 mEq/L Cl: 105 mEq/L iCa: 1.22 mmol/L TCO2: 26 mmol/L Glu: 358 mg/dL BUN: 27 mg/dL Crea: 1.3 mg/dL Hct: 34 % Hb: 11.6 g/dL A ...................... ...................... ...................... ...................... ...................... ...................... ......... Bending Machine Set Up Operator Note From Heather Cotto: Community Bending Machine Set Up Operator Sacha Cotto SC6 dispatched to a [facility] for a 68 yom C/O pain on [...] tenderness. Blood sugar 461. Urine dip acquired. C consulted; #20 IV placed in his left [...] ...................... ...................... ...................... ...................... ...................... ......... Disposition: Lila Lindsay MD [address] [place] [address],[address], [place], [address], [facility] [employer] 03/23/2024 19:41:30 12/20/2023 text/html HPI: [facility] RN called with concerns of patient with noted HR at 50. Reports that normally is 70-90 and was HR 77 on Saturday. Patietn with earlier headache. BP 130/64On multiple meds for evening Isorsibide , atenolol, hydralazine ...................... ...................... ...................... ...................... ...................... ...................... ......... CRC Nurse Triage Notes (Ruth Friend): Comments: CRC RN did not require any additional information to process this visit. Bending Machine Set Up Operator POC Test Results from [facility] - [facility] EKG (1) [17:51] EKG test performed. Attachments uploaded as part of this test result can be found under Documents section. Bending Machine Set Up Operator POC Test Results from [facility] - [facility] epoc (1) [18:13] pH: 7.372 pH units [...] ...................... ...................... ...................... ...................... ...................... ...................... ......... Bending Machine Set Up Operator Note From [facility]: 68 y/o male found ambulatory on scene presenting with a c/c of a headache. Pt presented awake and alert x4 with a patent airway, adequate respirations and a strong radial pulse. GCS 15. Skin warm and dry. The pt was Liberian speaking only. The pt reported a 6/10 [...] diarrhea, fever, chills, dizziness or lightheadedness. The [facility] was consulted and ordered POC blood work, [...] ...................... ...................... ...................... ...................... ...................... ......... Disposition: Lila NEUMANN MD [address] [facility],[address], [place], [address], [facility] [employer] 12/20/2023 19:23:39
== END 2024-11-04 14:20 | disposition home or self-care (01) ==
LOC: HO.HGS 12:26
PROVIDERS: Visit Provider Surgery
DX: K62.89 Other specified diseases of anus and rectum (principal)
CPT/HCPCS: 46600; 99203

== ENCOUNTER → 2024-11-04 12:25 | Outpatient (BNVA) | payer OTHER, SELFPAY | PROVIDERS: Visit Provider Surgery | DX: K62.89 Other specified diseases of anus and rectum (principal) | CPT/HCPCS: 46600; 99202 ==

== ENCOUNTER 2024-12-10 09:41 | Outpatient (REF) | payer OTHER, SELFPAY ==
--- OUTSIDE RECORDS SUMMARY | 2024-12-10 10:32 | XMS_ITS | Encounter Summary ---
Author Organization [employer] Address [address] [facility] 7[address] [place] [address] Care Team Providers Care Clinical Study Manager Name Role Phone Bobbi Ricks Primary Care Provider [phone] Jing Brooks PharmD Unavailable [phone] Reason for Visit * Reason Onset Date Comments Appointment Request 10/29/2022 Encounter Details Date Type Department Care Team ([facility] st Contact Info) Description 10/29/2022 Telephone [facility] [address] [place] [address] Bobbi Ricks ANP [address] [place] [address] Appointment Request Social History Tobacco Use Types [...] Von Gil - 10/29/2022 10:38 AM EDT Tc zulma Alexander with [facility] requesting an appt with provider. Potato Chip Frier tried booking but provider has nothing available at this time. Please contact pt at [phone] Georgian Speaker documented in this encounter Plan of Treatment Upcoming Encounters Date Type Department Care Team (Late st Contact Info) Description 12/31/2024 1:30 PM EDT Office Visit [facility] [address] [place] [address] Vikas Haile, DMD [address] [place] [address] 01/20/2025 2:30 PM EDT Medication Management [facility] [address] [place] [address] Jing Brooks PharmD [address] [place] [address] 01/22/2025 9:30 AM EDT Office Visit [facility] [address] [place] [address] Bobbi Ricks ANP [address] [place] [address] documented as of this encounter Visit Diagnoses Not on filedocumented in this encounter Care Teams Clinical Study Manager Relationship Specialty Start Date End Date Bobbi Ricks ANP [address] [place] [phone] PCP - General Family Medicine 03/08/21 Jing Brooks PharmD [address] [place] [phone] Pharmacist Internal Medicine 03/24/24 Loot! 10/02/24 documented as of this encounter
--- OUTSIDE RECORDS SUMMARY | 2024-12-10 10:32 | XMS_ITS | Encounter Summary ---
Author Organization [employer] Address [address] [facility] 7t [place] [address] Care Team Providers Care Heavy Equipment Operator Name Role Phone Bobbi Ricks Primary Care Provider [phone] Jing Brooks PharmD Unavailable [phone] Encounter Details Date Type Department Care Team (Late Contact Info) Description 10/02/2022 Orders Only [facility] [address] [place], [place] [phone] Ayse Barrientos LPN Social History Tobacco Use [...] Upcoming Encounters Date Type Department Care Team ([facility] Contact Info) Description 12/31/2024 1:30 PM EDT Office Visit [facility] [address] [place] [address] Vikas Haile DMD [address] [place], [place] [phone] 01/20/2025 2:30 PM EDT Medication Management [facility] [address] [place] [phone] Jing Brooks PharmD [address] [place] [address] 01/22/2025 9:30 AM EDT Office Visit [facility] [address] [place] [address] Bobbi Ricks ANP [address] [place] [address] documented as of this encounter Visit Diagnoses Not on filedocumented in this encounter Care Teams Heavy Equipment Operator Relationship Specialty Start Date End Date Bobbi Ricks ANP [address] [place] [id number] PCP - General Family Medicine 03/08/21 Jing Brooks PharmD [address] [place] [address] Pharmacist Internal Medicine 03/24/24 Admazely 10/02/24 documented as of this encounter
--- OUTSIDE RECORDS SUMMARY | 2024-12-10 10:32 | XMS_ITS | Encounter Summary ---
Author Organization [employer] Address [address] [facility] 7t [place] [address] Care Team Providers Care Rigger Name Role Phone Bobbi Ricks Primary Care Provider [phone] Jing Brooks PharmD Unavailable [phone] Reason for Visit * Reason Comments Med Refill Encounter Details Date Type Department Care Team ([facility] Contact Info) Description 10/30/2023 Refill [facility] [address] [place], [place] [phone] Bobbi Ricks ANP [address] [facility] [place] [address] Pain Social History Tobacco Use Types Packs/Day [...] Description 12/31/2024 1:30 PM EDT Office Visit [facility] [address] [place] [address] Vikas Haile, DMD [address] [place] [address] 01/20/2025 2:30 PM EDT Medication Management [facility] [address] [place] [address] Piers-CerdaAlma josephsa, PharmD [address] [place] [address] 01/22/2025 9:30 AM EDT Office Visit [facility] [address] [place] [address] Bobbi Ricks, ANP [address] [place] [address] documented as of this encounter Goals Goal Patient Goal Type Associated Problems Recent Progress Patient-Stated? Author Blood Pressure < 140/90 Blood Pressure 120/58(2024 2:07 PM EDT) No Piers-Gambl e, Jing, PharmD Hemoglobin A1c < 7 Result Component 8.9( 11:27 AM EDT) No Piers-Gambl e, Jing, PharmD documented as of this encounter Visit Diagnoses Diagnosis Pain Generalized pain documented in this encounter Additional Health Concerns Assessment Noted Time PHQ-9 Depression Total Score: 14 023 9:40 AM EDT documented as of this encounter Care Teams Rigger Relationship Specialty Start Date End Date Bobbi Ricks ANP [address] [place] [address] PCP - General Family Medicine 03/08/21 Jing Brooks PharmD [address] [place] [address] Pharmacist Internal Medicine 03/24/24 [employer] 10/02/24 documented as of this encounter
--- OUTSIDE RECORDS SUMMARY | 2024-12-10 10:32 | XMS_ITS | Encounter Summary ---
Author Organization [employer] Address [address] [place] [address] 7t [place] [address] Care Team Providers Care Pressure Dispatcher Name Role Phone Bobbi Ricks ELAINA Primary Care Provider [phone] Jing Brooks PharmD Unavailable [phone] Encounter Details Date Type Department Care Team (Late Contact Info) Description 03/18/2023 Orders Only [facility] [address] [place] [address] Vj Tolbert [address] [place] [address] Social History Tobacco Use Types Packs/Day Years [...] Description 12/31/2024 1:30 PM EDT Office Visit [facility] [address] [place] [address] Vikas Haile DMD [address] [place], [place] [phone] 01/20/2025 2:30 PM EDT Medication Management [facility] [address] [place] [address] Jing Brooks PharmD [address] [place] [address] 01/22/2025 9:30 AM EDT Office Visit [facility] [address] [place] [address] Bobbi Ricks ANP [address] [place] [address] documented as of this encounter Visit Diagnoses Not on filedocumented in this encounter Additional Health Concerns Assessment Noted Time PHQ-9 Depression Total Score: 14 023 9:40 AM EDT documented as of this encounter Care Teams Pressure Dispatcher Relationship Specialty Start Date End Date Bobbi Ricks ANP [address] [place] [phone] PCP - General Family Medicine 03/08/21 Jing Brooks, Julia [address] [place] [phone] Pharmacist Internal Medicine 03/24/24 [employer] 10/02/24 documented as of this encounter
--- OUTSIDE RECORDS SUMMARY | 2024-12-10 10:32 | XMS_ITS | Encounter Summary ---
Author Organization [employer] Address [address] [facility] 7t [place] [address] Care Team Providers Care Hack Saw Operator Name Role Phone Bobbi Ricks ELAINA Primary Care Provider [phone] Jing Brooks PharmD Unavailable [phone] Encounter Details Date Type Department Care Team (Latest Contact Info) Description 12/07/2024 Travel Social History Tobacco Use Types Packs/Day Years Used Date Smoking Tobacco: Never Passive Smoke Exposure: Never Smokeless Tobacco: Never Alcohol Use Standard Drinks/Week Comments Never 0 (1 standard drink = 0.6 oz pur e alcohol) Depression Answer Date Recorded Patient Health Questionnaire-9 Score 2 10/26/2024 Patient Health Questionnaire-9 Score 2 10/26/2024 Last PHQ-9: Questionnaire Data Not on file 0 10/26/2024 Housing Stability Answer Date Recorded What is your housing situation today? I have delbert robert 10/19/[address] you li ve. Do you have problems with any of the following? None of the above 10/19/2024 Food Insecurity Answer Date Recorded Within the past 12 months, y ou worried that your food would run out before you got money to buy more: Never True 10/19/2024 Within the past 12 months,th e food you bought just didn't last and you didn't have enough money to get more: Never True Transportation Answer Date Recorded In the past 12 months, has l ack of transportation kept you from medical appts, meetings, work or from getting things needed for daily living? No 10/19/2024 Utilities Answer Date Recorded In the past 12 months, has t he electric, gas, oil or water company threatened to shut off services in your home? No 10/19/2024 Depression Answer Date Recorded Patient Health Questionnaire-2 Score 0 10/26/2024 Internet Access Answer Date Recorded Internet Access Q1 Yes 10/19/2024 Internet Access Q2 Not on file 10/19/2024 Sex and Gender Information Value Date Recorded Sex Assigned at Male 05/28/2022 10:19 AM EDT Legal Sex Male 10:19 AM EDT Gender Identity Male 05/28/2022 10:19 AM EDT Sexual Orientation Straight 05/28/2022 10 :19 AM EDT documented as of this encounter Plan of Treatment Upcoming Encounters Date Type Department Care Team (Late st Contact Info) Description 12/31/2024 1:30 PM EDT Office Visit [facility] ADULT DENTAL [address] [place] [address] Vikas Haile, DMD [address] [place] [address] 01/20/2025 2:30 PM EDT Medication Management [facility] MED[facility]INE [address] [place] [address] Piers-Cerda, Jing, PharmD [address] [place] [address] 01/22/2025 9:30 AM EDT Office Visit [facility] [address] [place] [address] Bobbi Ricks ANP [address] [place] [address] documented as of this encounter Goals Goal [...] Assessment Noted Time PHQ-9 Depression Total Score: 2 10/27/19 25 11:28 AM EDT documented as of this encounter Care Teams Hack Saw Operator Relationship Specialty Start Date End Date Bobbi Ricks ANP [address] [place] [address] PCP - General Family Medicine 03/08/21 iJng Brooks PharmD [address] [place] [address] Pharmacist Internal Medicine 03/24/24 [employer] 10/02/24 documented as of this encounter
--- OUTSIDE RECORDS SUMMARY | 2024-12-10 10:32 | XMS_ITS | Clinical Summary ---
Author Organization [facility] Address [address] [facility] [address] 0 [place] [address] Phone Care Team Providers Care Log Chipper Operator Name Role Phone Bobbi Ricks NP Primary Care Provider [phone] Allergies Active Allergy Reactions Criticality Noted Date [...] 04/08/2019, 05/29/2018, Additional history exists Pneumococcal Vaccine: 50+ Years Completed 03/18/2023, 05/27/2020, 12/03/2016, Additional history exists Pneumococcal Vaccine: Peds (0 to 5 Years) and At-Risk Patients (6 to 49 Years) Discontinued 03/18/2023, 05/27/2020, 12/03/2016, Additional history exists Hepatitis B Vaccine Aged Out 04/05/2023, 04/26/2011, 10/12/2010 No longer eligible based on patient's age to complete this topic Insurance [facility] ([id number]) IRIS MEJIAS [id number] [facility] ([id number]) IRIS MEJIAS [phone] Care Teams Log Chipper Operator Relationship Specialty Start Date End Date Bobbi Ricks NP PCP - General Nurse Practitioner 07/04/23
--- OUTSIDE RECORDS SUMMARY | 2024-12-10 10:32 | XMS_ITS | Encounter Summary ---
Author Organization [employer] Address [address] [facility] 7t [place] [address] Care Team Providers Care Salt Miner Name Role Phone Bobbi Ricks Primary Care Provider [phone] Jing Brooks PharmD Unavailable [phone] Reason for Visit * Reason Onset Date Comments Hospital Follow-up 11/29/2023 Encounter Details Date Type Department Care Team ([facility] st Contact Info) Description 11/29/2023 Telephone [facility] MED[facility] [address] [place] [address] Bobbi Ricks ANP [address] [place] [address] Hospital Follow-up Social History Tobacco Use Types [...] a HDF f/u after recent admission to [facility] for [place] on 11/26/23. Pt is stable [...] from pt requesting a HDF appt. Hospital: [facility] Date of admission: 11/25 Discharge date: 11/28 Diagnosed: Acute kidney injury documented in this encounter Plan of Treatment Upcoming Encounters Date Type Department Care Team (Late st Contact Info) Description 12/31/2024 1:30 PM EDT Office Visit [facility] ADULT DENTAL [address] [place], [place] [phone] Vikas Haile, DMD [address] [place] [address] 01/20/2025 2:30 PM EDT Medication Management [address] [address] Jing Brooks PharmD [address] [place], [place] 01/22/2025 9:30 AM EDT Office Visit [facility] MED[facility]INE [address] [place] [address] Bobbi Ricks ANP [address] [place], [place] documented as of this encounter Goals Goal Patient Goal Type Associated Problems Recent Progress Patient-Stated? Author Blood Pressure < 140/90 Blood Pressure 120/58(2024 2:07 PM EDT) No Jing Smith, PharmD Hemoglobin A1c < 7 Result Component 8.9( 11:27 AM EDT) No Jing Smith PharmD documented as of this encounter Visit Diagnoses Not on filedocumented in this encounter Additional Health Concerns Assessment Noted Time PHQ-9 Depression Total Score: 14 023 9:40 AM EDT documented as of this encounter Care Teams Salt Miner Relationship Specialty Start Date End Date Bobbi Ricks ANP [address] [place] [address] PCP - General Family Medicine 03/08/21 Jing Brooks, PharmD [address] [place] [address] Pharmacist Internal Medicine 03/24/24 [employer] 10/02/24 documented as of this encounter
--- OUTSIDE RECORDS SUMMARY | 2024-12-10 10:32 | XMS_ITS | Encounter Summary ---
Author Organization [employer] Address 75 [facility] 7t [place] [address] Care Team Providers Care Pole Cutter Name Role Phone Bobbi Ricks ELAINA Primary Care Provider [phone] Jing Brooks PharmD Unavailable [phone] Encounter Details Date Type Department Care Team (Late st Contact Info) Description 12/21/2022 Orders Only [facility] CHC MED & PEDS [address] [place], [place] [phone] Ayse Barrientos LPN Social History Tobacco Use [...] Department Care Team (Late Contact Info) Description 12/31/2024 1:30 PM EDT Office Visit [facility] ADULT DENTAL [address] [place] [address] Vikas Haile, TORRES [address] [place] [address] 01/20/2025 2:30 PM EDT Medication Management [facility] MEDICINE [address] [place] [address] Jing Brooks PharmD [address] [place] [address] 01/22/2025 9:30 AM EDT Office Visit [facility] MEDICINE [address] [place] [address] Bobbi Ricks ANP [address] [place] [address] documented as of this encounter Visit Diagnoses Not on filedocumented in this encounter Additional Health Concerns Assessment Noted Time PHQ-9 Depression Total Score: 14 023 9:40 AM EDT documented as of this encounter Care Teams Pole Cutter Relationship Specialty Start Date End Date Bobbi Ricks ANP [address] [place] [address] PCP - General Family Medicine 03/08/21 Jing Brooks PharmD [address] [place] [address] Pharmacist Internal Medicine 03/24/24 [employer] 10/02/24 documented as of this encounter
--- OUTSIDE RECORDS SUMMARY | 2024-12-10 10:32 | XMS_ITS | Encounter Summary ---
Author Organization [facility] Address [address] [place] [address] 7t [place] [address] Care Team Providers Care Rubber Tire And Tubes Supervisor Name Role Phone Bobbi Ricks Primary Care Provider [phone] Jing Brooks PharmD Unavailable [phone] Reason for Visit * Reason Comments Med Refill Encounter Details Date Type Department Care Team (Late st Contact Info) Description 02/14/2023 Refill [facility] MEDICINE [address] [place] [address] Bobbi Ricks ANP [address] [place] [address] Hypertension associated with diabetes (CMS/[facility]) Social History Tobacco Use Types Packs/Day [...] Description 12/31/2024 1:30 PM EDT Office Visit [facility] ADULT DENTAL [address] [place] [address] Vikas Haile DMD [address] [place] [address] 01/20/2025 2:30 PM EDT Medication Management [facility] MEDICINE [address] [place] [address] Jing Brooks PharmD [address] [place] [address] 01/22/2025 9:30 AM EDT Office Visit [facility] MEDICINE [address] [place] [address] Bobbi Ricks ANP [address] [place] [address] documented as of this encounter Visit Diagnoses Diagnosis Hypertension associated with diabetes (CMS/[facility]) Unspecified essential hypertension documented in this encounter Additional Health Concerns Assessment Noted Time PHQ-9 Depression Total Score: 14 023 9:40 AM EDT documented as of this encounter Care Teams Rubber Tire And Tubes Supervisor Relationship Specialty Start Date End Date Bobbi Ricks ANP [address] [place] [address] PCP - General Family Medicine 03/08/21 Jing Brooks PharmD [address] [place] [address] Pharmacist Internal Medicine 03/24/24 [employer] 10/02/24 documented as of this encounter
--- OUTSIDE RECORDS SUMMARY | 2024-12-10 10:32 | XMS_ITS | Encounter Summary ---
Author Organization [employer] Address [address] [facility] 7t [place] [address] Care Team Providers Care Scraper Loader Operator Name Role Phone Bobbi Ricks Primary Care Provider [phone] Jing Brooks PharmD Unavailable [phone] Reason for Visit * Reason Comments Med Refill Encounter Details Date Type Department Care Team ([facility] st Contact Info) Description 11/12/2023 Refill [facility] MEDICINE [address] [place], [place] [phone] Bobbi Ricks ANP [address] [place] [address] Essential hypertension Social History Tobacco Use Types [...] Description 12/31/2024 1:30 PM EDT Office Visit [facility] ADULT DENTAL [address] [place] [address] Vikas Haile, DMD [address] [place] [address] 01/20/2025 2:30 PM EDT Medication Management [facility] MEDICINE [address] [place] [address] RishisJing Escobar, PharmD [address] [place] [address] 01/22/2025 9:30 AM EDT Office Visit [facility] MEDICINE [address] [place] [address] Bobbi Ricks ANP [address] [place] [address] documented as of this encounter Goals Goal Patient Goal Type Associated Problems Recent Progress Patient-Stated? Author Blood Pressure < 140/90 Blood Pressure 120/58(2024 2:07 PM EDT) No Piers-Gambl e, Jing, PharmD Hemoglobin A1c < 7 Result Component 8.9( 11:27 AM EDT) No Piers-Gambl eAlmasa, PharmD documented as of this encounter Visit Diagnoses Diagnosis Essential hypertension Unspecified essential hypertension documented in this encounter Additional Health Concerns Assessment Noted Time PHQ-9 Depression Total Score: 14 023 9:40 AM EDT documented as of this encounter Care Teams Scraper Loader Operator Relationship Specialty Start Date End Date Bobbi Ricks ANP [address] [place] [address] PCP - General Family Medicine 03/08/21 Jing Brooks PharmD [address] [place] [address] Pharmacist Internal Medicine 03/24/24 [employer] 10/02/24 documented as of this encounter
--- OUTSIDE RECORDS SUMMARY | 2024-12-10 10:32 | XMS_ITS | Data Portability ---
Author Organization [facility] Address [address] [place] [address] Care Team Providers Care Chip Washer Name Role Phone ALIYAH GILLIAM Primary Care [...] sugar was high today at 350. VSS. Yacht Master on site reports no acute distress. POC [...] Lab BMP, serum or plasma [address] [facility], [address] [place] [address], [id number] 4 18:27:34 hemoglobin + hematocrit, blood [address] [facility], [address] [place] [address], [id number] 4 18:28:18 Referral None recorded. Procedures None recorded. Surgeries None recorded. Imaging electrocard iogram [address] [facility], [address] [place] [address], [id number] 4 18:26:51 Medication Orders ketorolac 15 mg/mL injection solution 2023 024 [facility], [address] [place] [address], [id number], 4 18:21:13 sodium chloride 0.9 % intravenous solution 2023 024 [facility], [address] [place] [address], [id number], 4 18:21:13 metoclopram amanda 5 mg/mL injection solution 2023 024 [facility], [address] [place] [address], [id number], 4 18:21:13 Patient TargetsNo targets recorded. Patient InstructionsNo instructions recorded. Reason for Referral None Reported. Results Created Date Observation Date Name Description Value Unit Range Abnormal Flag Note LastModifiedBy Organization Detail LastModifiedTime 12/20/1912/20/2023 hemog lobin + hemat ocrit , blood Hemoglobin 12.5 Not Available Main - [address], [address] [place] [address] 12/20/2023 18:27:51 12/20/19 24 12/20/2023 hemog lobin + hemat ocrit , blood Hematocrit 37 Not Available [facility] - [address], [address] [place] [address] 12/20/2023 18:27:51 12/20/19 24 12/20/2023 BMP, serum or plasm a BUN 15 Not Available Main - Ins [address], [address] [place] [address] 12/20/2023 17:47:01 12/20/19 24 12/20/2023 BMP, serum or plasm a Ca 1.15 Not Available Main - Ins [address], [address] [place] [address] 12/20/2023 17:47:01 12/20/19 24 12/20/2023 BMP, serum or plasm a CI- 108 Not Available Main - Ins [address], [address] [place] [address] 12/20/2023 17:47:01 12/20/19 24 12/20/2023 BMP, serum or plasm a CRE 1.22 Not Available Main - Ins [address], [address] [place] [address] 12/20/2023 17:47:01 12/20/19 24 12/20/2023 BMP, serum or plasm a GLU 193 Not Available Main - Ins [address], [address] [place] [address] 12/20/2023 17:47:01 12/20/19 24 12/20/2023 BMP, serum or plasm a K+ 5.4 Not Available Main - Ins [address], [address] [place] [address] 12/20/2023 17:47:01 12/20/19 24 12/20/2023 BMP, serum or plasm a Na+ 143 Not Available Main - Ins [address], [address] [place] [address] 12/20/2023 17:47:01 12/20/19 24 12/20/2023 BMP, serum or plasm a tCO2 26 Not Available Main - Ins [address], [address] [place] [address] 12/20/2023 17:47:01 12/20/19 24 12/20/2023 elect neptali balderrama am No observ ation record ed. [address], [id number] 12/20/2023 18:26:50 Result Notes None recorded. Procedures Surgical History None recorded. Imaging Results Imaging Date Name Status LastModified by Organization Details LastModified Time 12/20/2023 electrocardiogram completed [address], [id number] 12/20/2023 18:26:50 Procedure Notes None recorded. Medical [...] Not Available Not Available Not Available [employer] Laurel Lite kit USE DIRECTED TO TEST BLOOD [...] % 170 mm[Hg] 70 mm[Hg] Not Available [employer] 4 17:57:34 Date Recorded Respiratory rate Body temperature Heart rate Oxygen saturation Oxygen saturation in Arterial blood by Pulse oximetry Systolic blood pressure Diastolic blood pressure Provider Name and Address Organization Details Last Updated DateTime 4 20 /min 98.5 [degF] 56 /min 100 % 100 % 216 mm[Hg] 83 mm[Hg] Not Available [employer] 4 17:35:22 Social History None recorded. Functional Status None recorded. Mental Status None recorded. Family History Nothing Reported. Medical History No medical history recorded. Past Encounters Encounter ID Performer Location Encounter Start Date Encounter Closed Date Diagnosis/Indication Diagnosis SNOMED-CT Code Diagnosis ICD10 Code Diagnosis Note [id number] Radha Lindsay MD [facility] - [address] [address] 12/13/2023 14:33:21 03/24/2024 14:12:34 Hyperglycemia 96576391 R73.9 Nocturia 391916399 R35.1 [id number] BECCA NEUMANN MD [facility] - [address] [address] 12/20/2023 17:35:20 12/20/2023 21:28:56 Headache 45037723 R51.9 Evaluation in the field was performed by my fruit packer face and fill colleague, as noted above, I provided real-time [...] or any other concerns. Increased blood pressure 61046258 R03.0 Pt had skipped the dose of [...] BP and ongoing bradycardi a. BP before fruit packer face and fill left 196/70. Headache has resolved. Red flags discussed with the patient Bradycardia 94169782 R00 .1 ECG with sinus bradicardi a. [...] Recorded Advance Directives Directive None Recorded Payers Insurance Date Sequence Insurance Name Policy Number Policy Denson Covered Member ID Denson Member ID Guarantor Name 03/24/2024 1 [facility] - DOS ON OR AFTER 2022 - DUAL ELIGIBLE - USP OPTIONS AND ONE CARE (MEDICARE REPLACEMENT/AD VANTAGE - HMO) Steve Caceres [id number] Steve Caceres Notes Date Note Type Note [...] by RN calling inSpanish speaking only [facility]The [facility] RN Yacht Master POC Test Results from Heather Cotto [facility] Blood Glucose Measurement (1) [17:59] Blood Glucose: 461 mg/dL iSTAT Chem8+ (2) [17:59] Na: 138 mEq/L K: 4.8 mEq/L Cl: 105 mEq/L iCa: 1.22 mmol/L TCO2: 26 mmol/L Glu: 358 mg/dL BUN: 27 mg/dL Crea: 1.3 mg/dL Hct: 34 % Hb: 11.6 g/dL A ...................... ...................... ...................... ...................... ...................... ...................... ......... Yacht Master Note From Heather Cotto: Community Yacht Master Sacha Cotto SC6 dispatched to a [facility] for a 68 yom C/O pain [...] ...................... ...................... ...................... ......... Disposition: Fulfilled Radha Lnidsay MD [address] [facility],[address], [place], [address], [facility] 03/23/2024 19:41:30 12/20/2023 text/html HPI: VNA RN [...] any additional information to process this visit. Yacht Master POC Test Results from [facility] EKG (1) [17:51] EKG test performed. Attachments uploaded as part of this test result can be found under Documents section. Yacht Master POC Test Results from [facility] epoc (1) [18:13] pH: 7.372 pH units [...] ...................... ...................... ...................... ...................... ...................... ...................... ......... Yacht Master Note From [facility]: 68 y/o male found ambulatory on scene presenting with a c/c of a headache. Pt presented awake and alert x4 with a patent airway, adequate respirations and a strong radial pulse. GCS 15. Skin warm and dry. The pt was Bulgarian speaking only. The pt reported a 6/10 [...] diarrhea, fever, chills, dizziness or lightheadedness. The [facility] was consulted and ordered POC blood work, [...] Disposition: Fulfilled BECCA NEUMANN MD [address] [facility],[address], [place], [address], [facility] 12/20/2023 19:23:39
--- OUTSIDE RECORDS SUMMARY | 2024-12-10 10:32 | XMS_ITS | Encounter Summary ---
Author Organization [employer] Address [address] [facility] 7t [place] [address] Care Team Providers Care Jitterbug Operator Name Role Phone Bobbi Ricks Primary Care Provider [phone] Jing Brooks PharmD Unavailable [phone] Encounter Details Date Type Department Care Team (Late st Contact Info) Description 08/14/2022 Orders Only [facility] CHC MED & PEDS [address] [place], [place] [phone] Ayse Barrientos LPN Social History Tobacco Use [...] Description 12/31/2024 1:30 PM EDT Office Visit [facility] ADULT DENTAL [address] [place] [address] Vikas Haile, DMD [address] [place] [address] 01/20/2025 2:30 PM EDT Medication Management [facility] MEDICINE [address] [place] [address] Jing Brooks, PharmD [address] [place] [address] 01/22/2025 9:30 AM EDT Office Visit [facility] MEDICINE [address] [place] [address] Bobbi Ricks ANP [address] [place] [address] documented as of this encounter Visit Diagnoses Not on filedocumented in this encounter Care Teams Jitterbug Operator Relationship Specialty Start Date End Date Bobbi Ricks ANP [address] [place] [address] PCP - General Family Medicine 03/08/21 Jing Brooks PharmD [address] [place] [address] Pharmacist Internal Medicine 03/24/24 [employer] 10/02/24 documented as of this encounter
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
--- OUTSIDE RECORDS SUMMARY | 2024-12-10 10:32 | XMS_ITS | Encounter Summary ---
Author Organization [employer] Address 75 [facility] 7t [place] [address] Care Team Providers Care Registered Nurse Behavioral Health Name Role Phone Bobbi Ricks Primary Care Provider [phone] Jing Brooks PharmD Unavailable [phone]- [phone] Reason for Visit * Reason Comments Med Refill Encounter Details Date Type Department Care Team ([facility] Contact Info) Description 06/23/2024 Refill [facility] CHC MED & PEDS [address] [place], [place] [phone] Bobbi Ricks ANP 230 [facility] [place] [address] Mixed hyperlipidemia Social History Tobacco Use Types [...] 1:30 PM EDT Office Visit [facility] ADULT DENTAL [address] [place] [address] Vikas Haile, DMD 230 [place] [address] 01/20/2025 2:30 PM EDT Medication Management [facility] MEDICINE [address] [place] [address] RishisJing Escobar, PharmD [address] [place] [address] 01/22/2025 9:30 AM EDT Office Visit [facility] MEDICINE [address] [place] [address] Bobbi Ricks, ANP 230 [place] [address] documented as of this encounter Goals Goal [...] documented as of this encounter Care Teams Registered Nurse Behavioral Health Relationship Specialty Start Date End Date Bobbi Ricks ANP [address] [place] [address] PCP - General Family Medicine 03/08/21 Jing Brooks PharmD 230 [place] [address] Pharmacist Internal Medicine 03/24/24 [email or web address] 10/02/24 documented as of this encounter
--- OUTSIDE RECORDS SUMMARY | 2024-12-10 10:32 | XMS_ITS | Encounter Summary ---
Author Organization [employer] Address 75 [facility] 7t [place] [address] Care Team Providers Care Road Production General Manager Name Role Phone Bobbi Ricks Primary Care Provider [phone] Jing Brooks PharmD Unavailable [phone]- [phone] Reason for Visit * Reason Comments Med Refill Encounter Details Date Type Department Care Team ([facility] Contact Info) Description 11/01/2023 Refill [facility] CHC MED & PEDS [address] [place], [place] [phone] Bobbi Ricks ANP 230 [facility] [place] [address] Pain Social History Tobacco Use Types Packs/Day [...] Description 12/31/2024 1:30 PM EDT Office Visit [facility] ADULT DENTAL [address] [place] [address] Vikas Haile, DMD [address] [place] [address] 01/20/2025 2:30 PM EDT Medication Management [facility] MEDICINE [address] [place] [address] Piers-CerdaAlma josephsa, PharmD [address] [place] [address] 01/22/2025 9:30 AM EDT Office Visit [facility] MEDICINE [address] [place] [address] Bobbi Ricks, ANP 230 [place] [address] documented as of this encounter Goals Goal [...] documented as of this encounter Care Teams Road Production General Manager Relationship Specialty Start Date End Date Bobbi Ricks ANP [address] [place] [address] PCP - General Family Medicine 03/08/21 Jing Brooks PharmD [address] [place] [address] Pharmacist Internal Medicine 03/24/24 [employer] 10/02/24 documented as of this encounter
--- OUTSIDE RECORDS SUMMARY | 2024-12-10 10:32 | XMS_ITS | Encounter Summary ---
Author Organization [employer] Address 75 [facility] 7t [place] [address] Care Team Providers Care Seconds Grader Name Role Phone Bobbi Ricks Primary Care Provider [phone] Jing Brooks PharmD Unavailable [phone] Encounter Details Date Type Department Care Team (Late st Contact Info) Description 10/21/2023 Orders Only [facility] MEDICINE 230 [place], [place] [phone] Bobbi Ricks ANP 230 [place] [address] Social History Tobacco Use Types Packs/Day Years [...] AM EDT documented as of this encounter Functional Status * Over the past 2 weeks, how often have you been bothered by any of the following problems? Question Answer Date of Assessment Author Little interest or pleasure in doing things Not at all 10/24/2023 11:02 AM EDT Brandy Paris [place] Feeling down, depressed, or hopeless Not at all 10/24/2023 11:02 AM EDT Brandy Paris [place] Patient Health Questionnaire -2 Score 0 10/24/2023 11:02 AM EDT Brandy Paris [place] documented as of this encounter Plan of Treatment Upcoming Encounters Date Type Department Care Team (Late st Contact Info) Description 12/31/2024 1:30 PM EDT Office Visit [facility] ADULT DENTAL [address] [place] [address] Vikas Haile, DMD 230 [place] [address] 01/20/2025 2:30 PM EDT Medication Management [facility] MEDICINE [address] [place] [address] Jing Brooks, PharmD 230 [place] [address] 01/22/2025 9:30 AM EDT Office Visit [facility] MEDICINE [address] [place] [address] Bobbi Ricks, ANP 230 [place] [address] documented as of this encounter Goals Goal [...] documented as of this encounter Care Teams Seconds Grader Relationship Specialty Start Date End Date Bobbi Ricks ANP 230 [place] [address] PCP - General Family Medicine 03/08/21 Jing Brooks PharmD 230 [place] [address] Pharmacist Internal Medicine 03/24/24 [employer] 10/02/24 documented as of this encounter
[2024-12-10 12:01] LABS: Anion Gap 14 (12-20); Blood Urea Nitrogen 25 mg/dL (9-16); Calcium 9.7 mg/dL (8.4-10.2); Carbon Dioxide 24 mmol/L (22-29); Chloride 109 mmol/L (96-108); Estimated Glomerular Filt Rate 52; Glucose Random 119 mg/dL (60-115); Potassium 4.3 mmol/L (3.3-5.1); Sodium 143 mmol/L (135-145)
== END 2024-12-10 09:42 | disposition home or self-care (01) ==
LOC: HO.HHCL 09:41
PROVIDERS: Internal Medicine Hypertension Specialist; Visit Provider Nurse Practitioner Primary Care
DX: I10 Essential (primary) hypertension (principal); N17.0 Acute kidney failure with tubular necrosis; N18.31 Chronic kidney disease, stage 3a; E87.5 Hyperkalemia
CPT/HCPCS: 36415; 80048

== ENCOUNTER 2025-01-04 15:28 | Outpatient (AMB) | payer OTHER, SELFPAY ==
--- NOTE | 2025-01-04 15:30 | HO.NEPHOV ---
Vital Signs 01/04/25 15:31 Height 5 ft 11 in Weight 172 lb 8 oz BMI 24.1 BP 112/70 Blood Pressure Location Rt brachial Position Sitting Pulse 64 Pulse Source Pulse Oximeter Pulse Oximetry (%) 96 Oxygen Delivery Method Room Air Intake Visit Reasons: 10/13/24 NO SHOW/ Conf Continuous Improvement Specialist Required: Yes Continuous Improvement Specialist Language: Coater Slate Services: Continuous Improvement Specialist Present Continuous Improvement Specialist Name: Gigi [id number] Information Interpreted: clinical only Accompanied by: Self / Same As Patient Allergies amlodipine Adverse Reaction (Unknown, Verified 01/04/25 15:31) leg edema Medication List - Last Reconciled 01/04/25 by Frederic Harris MD acetaminophen ER 650 mg PO Q8H PRN aspirin 81 mg PO QAM atenolol 100 mg PO DAILY atorvastatin 80 mg PO BEDTIME 30 days blood sugar diagnostic (FreeStyle Lite Strips) 3times a day cholecalciferol (vitamin D3) 50 mcg PO QAM docusate sodium 100 mg PO BID PRN empagliflozin (Jardiance) 10 mg PO DAILY folic acid 1 mg PO DAILY folic acid 1 mg PO DAILY gabapentin 600 mg PO BEDTIME hydralazine 50 mg PO TID isosorbide mononitrate ER 120 mg PO QPM lancets (TRUEplus Lancets) 3 times a day levothyroxine 125 mcg PO QAM melatonin 6 mg PO BEDTIME PRN multivitamin with iron 1 tab PO DAILY pantoprazole 40 mg PO QAM ranolazine ER 500 mg PO BID tamsulosin 0.4 mg PO QPM HPI Comments Details: 68 [place]yan-speaking man with type 2 diabetes mellitus on oral hypoglycemic agents, hypothyroidism, CAD and dyslipidemia . He was on ACEI & Spironolactone. Denied illicit drug use. His creatinine was found to be 4.71 (it was 1.57 on Feb 2023) with bicarb of 15 but had no hyperkalemia.He was admitted for further management. Bactrim was recently added MT resolved with hydration and after stopping ACEi/Bactrim 04/20/24 Overall doing doing well Interpretor service was used. NO urinary symptoms 01/04/25 69-year-old male presenting with acute back pain and suspected urinary tract infection. The acute back pain began this morning and is severe, affecting the entire back and causing difficulty in standing. It started after washing activities. The patient has been advised to increase water intake, which he has done. There is no mention of related medical history or prior occurrences, and no other exacerbating or relieving factors were described. [facility] Medical History (Updated 11/04/24 @ 14:01 by Rock Murphy MD) Perianal infection Acquired hypothyroidism Dyslipidemia NSVT (nonsustained ventricular tachycardia) Atherosclerotic cardiovascular disease Coronary artery arteriosclerosis Essential hypertension Type 2 diabetes mellitus with diabetic polyneuropathy Surgical History History of colon resection Hx of colonoscopy History of cardiac catheterization Family History Father No problems noted. Mother No problems noted. Social History Household Members: None Housing: Condominium Do you presently have visiting nurse or other home services: No Alcohol intake: current Alcohol intake frequency: holidays/special occasions only Comment: pt refused camera in room, states unable to sleep with light from equipment Patient Tobacco Use Status: Never used Tobacco Second Hand Smoke Exposure: No Advance Directives Date on File: 10/03/20 service: No Physical Exam Vital Signs: Last Vital Signs Pulse 64 01/04/25 15:31 BP 112/70 01/04/25 15:31 Pulse Ox 96 01/04/25 15:31 Oxygen Delivery Method Room Air 01/04/25 15:31 BMI result Body Mass Index 24.1 Const General: comfortable; No acute distress Orientation/consciousness: patient oriented x3 Eyes General: appearance normal, both eyes and all related structures Visual Bolanos: normal visual bolanos by confrontation Neck Neck: Yes supple and Yes no JVD Resp Effort & Inspection: normal respiratory effort and respiratory effort not decreased Auscultation: rhonchi Cardio Palpation: no palpable S3 and no palpable S4 Heart sounds: no rubs GI Inspection: Yes normal to inspection Palpation (GI): Soft to palpation Percussion: Yes normal to percussion Auscultation: normal bowel sounds General: Yes no CVA tenderness Back/Spine/Pelvis Back: no CVA tenderness Skin General skin exam: no petechiae and no purpura Neuro General: patient oriented x3 and no focal motor deficits Extrem General: No clubbing and No edema Results Reviewed Nephrology Results: Hgb 16.7 g/dl (14.0-18.0) 10/05/24 WBC 3.8 X10*3/uL (4.8-10.8) L 10/05/24 Plt Count 159 X10*3/uL (160-400) L 10/05/24 Sodium 143 mmol/L (135-145) 12/10/24 Potassium 4.3 mmol/L (3.3-5.1) 12/10/24 Chloride 109 mmol/L (96-108) H 12/10/24 Carbon Dioxide 24 mmol/L (22-29) 12/10/24 BUN 25 mg/dL (9-16) H 12/10/24 Creatinine 1.36 mg/dL (0.5-1.4) 12/10/24 Calcium 9.7 mg/dL (8.4-10.2) 12/10/24 Urine Creatinine 33.43 mg/dL 09/23/24 Assessment & Plan Assessment & Plan (1) Acute on chronic renal failure: Code(s): N17.9 - Acute kidney failure, unspecified; N18.9 - Chronic kidney disease, unspecified Category: Medical Qualifiers: Acute renal failure type: with acute tubular necrosis Chronic kidney disease stage: stage 3 (moderate) Chronic kidney disease stage 3 subtype: stage 3a (GFR 45-59) Qualified Code(s): N17.0 - Acute kidney failure with tubular necrosis; N18.31 - Chronic kidney disease, stage 3a Plan: MT superimposed on CKD due to hypoperfusion Renal function improved with hydration and after stopping ACEi /Bactrim/Aldactone combination BP well controlled Stay on low salt diet Keep I > O ; Encouraged PO fluid intake Avoid combination of ACEi/Spironolactone. Agree with SGLT-2 inhibitors Obtain follow up renal ultrasonogram. Renal function has improved Cr down to 1.34 Currently at baseline. Orders: Orders Complete Blood Count no Diff 4 Months N17.0 - Acute kidney failure with tubular necrosis, N18.31 - Chronic kidney disease, stage 3a Creatinine Urine 4 Months N17.0 - Acute kidney failure with tubular necrosis, N18.31 - Chronic kidney disease, stage 3a US renal BI Today N17.0 - Acute kidney failure with tubular necrosis, N18.31 - Chronic kidney disease, stage 3a Basic Metabolic Panel 4 Months N17.0 - Acute kidney failure with tubular necrosis, N18.31 - Chronic kidney disease, stage 3a Total Protein Urine Random 4 Months N17.0 - Acute kidney failure with tubular necrosis, N18.31 - Chronic kidney disease, stage 3a Coding Level of Care Code Est Pt Level 4 (46332) Diagnoses Acute renal failure with acute tubular necrosis superimposed on stage 3a chronic kidney disease N17.0; N18.31 Acute renal failure type: with acute tubular necrosis Chronic kidney disease stage: stage 3 (moderate) Chronic kidney disease stage 3 subtype: stage 3a (GFR 45-59)
[2025-01-04 15:31] VITALS: BP 112/70; PULSE 64; O2SAT 96; BMI 24.1
--- OUTSIDE RECORDS SUMMARY | 2025-01-04 17:11 | XMS_ITS | Encounter Summary ---
Author Organization [employer] Address 75 [facility] 7t [place] [address] Care Team Providers Care Rodbuster Name Role Phone Bobbi Ricks Primary Care Provider [phone] Jing Brooks PharmD Unavailable [phone] Reason for Visit * Reason Comments Med Refill Encounter Details Date Type Department Care Team ([facility] st Contact Info) Description 11/12/2023 Refill [facility] MEDICINE 230 [place], [place] [phone] Bobbi Ricks ANP 230 [place] [address] Essential hypertension Social History Tobacco Use Types [...] Care Team (Late st Contact Info) Description 01/08/2025 11:30 AM EDT Medication Management [facility] MEDICINE [address] [place] [phone] Jing Brooks, PharmD [address] [place] [address] 01/22/2025 9:30 AM EDT Office Visit [facility] MEDICINE [address] [place] [address] Bobbi Ricks ANP [address] [place] [address] documented as of this encounter Goals Goal Patient Goal Type Associated Problems Recent Progress Patient-Stated? Author Blood Pressure < 140/90 Blood Pressure 120/58(2024 2:07 PM EDT) No Rishis-Tamirl parish, Jing, PharmD Hemoglobin A1c < 7 Result Component 8.9( 11:27 AM EDT) No Piers-Gambl e, Jing, PharmD documented as of this encounter Visit Diagnoses Diagnosis Essential hypertension Unspecified essential hypertension documented in this encounter Additional Health Concerns Assessment Noted Time PHQ-9 Depression Total Score: 14 023 9:40 AM EDT documented as of this encounter Care Teams Rodbuster Relationship Specialty Start Date End Date Bobbi Ricks ANP [address] [place] [address] PCP - General Family Medicine 8/11/21 Jing Brooks, Julia [address] [place] [address] Pharmacist Internal Medicine 03/24/24 [employer] 10/02/24 documented as of this encounter
== END 2025-01-04 15:40 | disposition home or self-care (01) ==
LOC: HO.HKA 15:28
PROVIDERS: PCP Nurse Practitioner Primary Care; Visit Provider Internal Medicine Hypertension Specialist
DX: N17.0 Acute kidney failure with tubular necrosis (principal); N18.31 Chronic kidney disease, stage 3a
CPT/HCPCS: 99214

== ENCOUNTER → 2025-01-04 15:28 | Outpatient (BNVA) | payer OTHER, SELFPAY | PROVIDERS: PCP Nurse Practitioner Primary Care; Visit Provider Internal Medicine Hypertension Specialist | DX: E11.42 Type 2 diabetes mellitus with diabetic polyneuropathy (principal); N17.0 Acute kidney failure with tubular necrosis; N18.31 Chronic kidney disease, stage 3a; Z79.84 Long term (current) use of oral hypoglycemic drugs | CPT/HCPCS: 99212 ==

== ENCOUNTER 2025-01-13 11:58 | Outpatient (REF) | payer OTHER, SELFPAY ==
[2025-01-13 13:48] LABS: Anion Gap 11 (12-20); Blood Urea Nitrogen 21 mg/dL (9-16); Calcium 9.7 mg/dL (8.4-10.2); Carbon Dioxide 25 mmol/L (22-29); Chloride 108 mmol/L (96-108); Estimated Glomerular Filt Rate 53; Glucose Random 141 mg/dL (60-115); Potassium 4.1 mmol/L (3.3-5.1); Sodium 140 mmol/L (135-145)
--- OUTSIDE RECORDS SUMMARY | 2025-01-13 13:56 | XMS_ITS | Encounter Summary ---
Author Organization [employer] Address 75 [facility] 7t [place] [address] Care Team Providers Care Caterers Helper Name Role Phone Bobbi Ricks Primary Care Provider [phone] Jing Brooks PharmD Unavailable [phone] Reason for Visit * Reason Comments Med Refill Encounter Details Date Type Department Care Team ([facility] st Contact Info) Description 11/12/2023 Refill [facility] MEDICINE 230 [place], [place] [phone] Bobbi Ricks ANP 230 [place] [address] Essential hypertension Social History Tobacco Use Types [...] Care Team (Late st Contact Info) Description 01/22/2025 9:30 AM EDT Office Visit [address] [address] Bobbi Ricks ANP [address] [place] [address] 02/01/2025 9:30 AM EDT Medication Management [address] [address] Piers-Alma Cerdasa, PharmD [address] [place] [address] documented as of this encounter Goals Goal Patient Goal Type Associated Problems Recent Progress Patient-Stated? Author Blood Pressure < 140/90 Blood Pressure 139/81(2024 1:43 PM EDT) No Piers-Gambl e, Jing, PharmD Hemoglobin A1c < 7 Result Component 7.8( 11:53 AM EDT) No Piers-Gambl e, Jing, PharmD documented as of this encounter Visit Diagnoses Diagnosis Essential hypertension Unspecified essential hypertension documented in this encounter Additional Health Concerns Assessment Noted Time PHQ-9 Depression Total Score: 14 023 9:40 AM EDT documented as of this encounter Care Teams Caterers Helper Relationship Specialty Start Date End Date Bobbi Ricks ANP [address] [place] [address] PCP - General Family Medicine 8/11/21 Jing Brooks, Julia [address] [place] [address] Pharmacist Internal Medicine 03/24/24 [employer] 10/02/24 documented as of this encounter
== END 2025-01-13 11:59 | disposition home or self-care (01) ==
LOC: HO.HHCL 11:58
PROVIDERS: PCP Nurse Practitioner Primary Care; Visit Provider Internal Medicine
DX: I10 Essential (primary) hypertension (principal)
CPT/HCPCS: 36415; 80048

== ENCOUNTER 2025-01-19 12:21 | Outpatient (AMB) | payer OTHER, SELFPAY ==
--- NOTE | 2025-01-19 12:33 | MHC.OFFVIS ---
Vital Signs 01/19/25 12:34 Height 5 ft 11 in Weight 174 lb 2.643 oz BMI 24.3 BP 138/68 Blood Pressure Location Lt brachial Position Sitting Pulse 71 Pulse Source Monitor Intake Visit Reasons: cardiac clearance dr murphy Supervisor Scrap Preparation Required: Yes Supervisor Scrap Preparation Services: Supervisor Scrap Preparation Offered & Declined Accompanied by: Family/Other Allergies amlodipine Adverse Reaction (Unknown, Verified 01/04/25 15:31) leg edema Medication List - Last Reconciled 01/19/25 by Lacho García MD acetaminophen ER 650 mg PO Q8H PRN aspirin 81 mg PO QAM atenolol 100 mg PO DAILY atorvastatin 80 mg PO BEDTIME 30 days blood sugar diagnostic (FreeStyle Lite Strips) 3times a day cholecalciferol (vitamin D3) 50 mcg PO QAM docusate sodium 100 mg PO BID PRN empagliflozin (Jardiance) 10 mg PO DAILY folic acid 1 mg PO DAILY folic acid 1 mg PO DAILY gabapentin 600 mg PO BEDTIME hydralazine 50 mg PO TID isosorbide mononitrate ER 120 mg PO QPM lancets (TRUEplus Lancets) 3 times a day levothyroxine 125 mcg PO QAM melatonin 6 mg PO BEDTIME PRN multivitamin with iron 1 tab PO DAILY pantoprazole 40 mg PO QAM ranolazine ER 500 mg PO BID tamsulosin 0.4 mg PO QPM HPI Comments Details: Steve returns for follow-up regarding coronary disease. He needs preoperative evaluation for anal surgery. He he initially had right coronary artery stenting. However, he continued to have angina and hence had another catheterization and found to have severe LAD/diagonal stenosis. Chronic total occlusion of the circumflex. Followed by bypass surgery in 2020. After that, he is mostly done well. He really did not have any major issues. About 3 weeks back, he had an episode of chest pain that was brief and spontaneously improved. Not clear if it is anginal episode or not. After that, no further issues. No exertional complaints. He needs to go for annual surgery. [facility] Medical History (Updated 11/04/24 @ 14:01 by Rock Murphy MD) Perianal infection Acquired hypothyroidism Dyslipidemia NSVT (nonsustained ventricular tachycardia) Atherosclerotic cardiovascular disease Coronary artery arteriosclerosis Essential hypertension Type 2 diabetes mellitus with diabetic polyneuropathy Surgical History History of colon resection Hx of colonoscopy History of cardiac catheterization Family History Father No problems noted. Mother No problems noted. Social History Household Members: None Housing: [facility] Do you presently have visiting nurse or other home services: No Alcohol intake: current Alcohol intake frequency: holidays/special occasions only Comment: pt refused camera in room, states unable to sleep with light from equipment Patient Tobacco Use Status: Never used Tobacco Second Hand Smoke Exposure: No Advance Directives Date on File: 10/03/20 service: No Review of Systems Const Denies weakness ENT Denies dizziness Card Denies chest pain, Denies chest pain with activity, Denies syncope, Denies rapid heart rate, Denies pedal edema, Denies edema, Denies leg edema, Denies lightheadedness, Reports palpitations, Denies dyspnea, Denies dyspnea on exertion and Denies orthopnea Resp Denies cough, Denies dyspnea and Denies dyspnea on exertion GI Denies hematochezia and Denies change in stool character Musc Denies abnormal gait, Denies muscle cramps, Denies muscle weakness, Denies numbness, Denies radiating pain into limb and Denies tingling Neuro Denies abnormal gait, Denies dizziness, Denies syncope, Denies numbness, Denies tingling and Denies weakness Endo Reports palpitations Physical Exam Vital Signs: Last Vital Signs Pulse 71 01/19/25 12:34 BP 138/68 01/19/25 12:34 BMI result Body Mass Index 24.3 Const General: comfortable and no acute distress Orientation/consciousness: patient oriented x3 HEENT Other: Unremarkable Head: Yes normal to inspection Neck Neck: Yes normal visual inspection Chest Chest palpation & inspection: normal inspection of the chest Resp Auscultation: clear to auscultation bilaterally Cardio Palpation: normal PMI Heart sounds: S1 normal heart sound present, S2 normal heart sound present, no gallops, no murmurs and no rubs GI Palpation (GI): Soft to palpation Back/Spine/Pelvis Other: unremarkable Skin General skin exam: no rashes or lesions noted Neuro General: patient oriented x3 Extrem General: Yes normal to inspection Psych Mental Status: mental status grossly normal Office Procedures EKG Details: EKG with underlying sinus rhythm at 66/Min; incomplete right bundle-branch block pattern; inferior and anterolateral T inversions that could indicate ischemia. These are not seen in the previous EKG from 2023. [id number], Complete Assessment & Plan Assessment & Plan (1) Preoperative cardiovascular examination: Code(s): Z01.810 - Encounter for preprocedural cardiovascular examination Category: Medical Plan: During history of coronary disease, bypass surgery as well as recent chest pain, abnormal EKG, he needs comprehensive assessment with echocardiogram/stress test. (2) Atherosclerotic cardiovascular disease: Code(s): I25.10 - Atherosclerotic heart disease of crow coronary artery without angina pectoris Category: Medical Plan: One episode of chest pain 3 weeks back but nothing since. EKG as above. Await testing. Continue aspirin and statins. Last available LDL 42 mg/dL. (3) Status post coronary artery bypass graft: Code(s): Z95.1 - Presence of aortocoronary bypass graft Category: Surgical (4) NSVT (nonsustained ventricular tachycardia): Code(s): I47.2 - Ventricular tachycardia Category: Medical Plan: No recent issues. Continue beta-blockers. (5) Essential hypertension: Code(s): I10 - Essential (primary) hypertension Category: Medical Plan: Stable. No changes. (6) Type 2 diabetes mellitus with unspecified complications: Code(s): E11.8 - Type 2 diabetes mellitus with unspecified complications Category: Medical Plan: No recent hemoglobin A1c. Last random glucose is 141. In August, it seems it was quite high in the 500s. On Jardiance. Plan Discussion Notes I discussed with the patient the need for a stress test and echocardiogram to investigate the recent chest pain. We considered a chemical stress test due to his back pain. I explained that these tests will help determine if there are any blockages or other cardiac issues. Patient was informed and verbally consented to the use of an ambient scribe for clinic note documentation during this visit. Orders: Orders CA echo transthoracic complete Today I25.10 - Atherosclerotic heart disease of crow coronary artery without angina pectoris, Z01.810 - Encounter for preprocedural cardiovascular examination NM cardiolite stress test Today R07.2 - Precordial pain, Z01.810 - Encounter for preprocedural cardiovascular examination CA lexiscan stress w charlie Today I20.9 - Angina pectoris, unspecified, Z01.810 - Encounter for preprocedural cardiovascular examination Patient Instructions: - Schedule and attend the stress test and echocardiogram as soon as possible. - Report any new or worsening symptoms immediately. Coding Level of Care Code Est Pt Level 4 (64398) Complex EM visit Add On G2211 Diagnoses Preoperative cardiovascular examination Z01.810 Atherosclerotic cardiovascular disease I25.10 Status post coronary artery bypass graft Z95.1 NSVT (nonsustained ventricular tachycardia) I47.2 Essential hypertension I10 Type 2 diabetes mellitus with unspecified complications E11.8 CPT Codes EKG - CPT: [id number], Complete ([id number])
[2025-01-19 12:34] VITALS: BP 138/68; PULSE 71; BMI 24.3
--- OUTSIDE RECORDS SUMMARY | 2025-01-19 13:53 | XMS_ITS | Encounter Summary ---
Author Organization [employer] Address [address] [facility] [address] [place] [address] Care Team Providers Care [employer] Sales Associate Name Role Phone Bobbi Ricks Primary Care Provider [phone] Jing Brooks PharmD Unavailable [phone] Reason for Visit * Reason Comments Med Refill Encounter Details Date Type Department Care Team ([facility] st Contact Info) Description 11/12/2023 Refill [facility] [address], [place] [phone] Bobbi Ricks ANP [address] [place] [address] Essential hypertension Social History Tobacco Use Types [...] Description 01/22/2025 9:30 AM EDT Office Visit [address] [address] Bobbi Ricks ANP [address] [place] [id number] 02/01/2025 9:30 AM EDT Medication Management [address] [address] Piers-Alma Cerdasa, PharmD [address] [place] [phone] documented as of this encounter Goals Goal [...] documented as of this encounter Care Teams [employer] Sales Associate Relationship Specialty Start Date End Date Bobbi Ricks ANP [address] [place] [id number] PCP - General Family Medicine 8/11/21 Jing Brooks, Julia [address] [place] [phone] Pharmacist Internal Medicine 03/24/24 Arch Grants 10/02/24 documented as of this encounter
== END 2025-01-19 13:19 | disposition home or self-care (01) ==
LOC: HO.HCS 12:22
PROVIDERS: PCP Nurse Practitioner Primary Care; Visit Provider Internal Medicine
DX: Z01.810 Encounter for preprocedural cardiovascular examination (principal); I25.10 Atherosclerotic heart disease of native coronary artery without angina pectoris; Z95.1 Presence of aortocoronary bypass graft; I47.20 Ventricular tachycardia, unspecified; I10 Essential (primary) hypertension; E11.8 Type 2 diabetes mellitus with unspecified complications
CPT/HCPCS: 93010; 99214; G2211

== ENCOUNTER → 2025-01-19 12:21 | Outpatient (BNVA) | payer OTHER, SELFPAY | PROVIDERS: PCP Nurse Practitioner Primary Care; Visit Provider Internal Medicine | DX: Z01.810 Encounter for preprocedural cardiovascular examination (principal); I25.10 Atherosclerotic heart disease of native coronary artery without angina pectoris; Z95.1 Presence of aortocoronary bypass graft; I47.20 Ventricular tachycardia, unspecified; I10 Essential (primary) hypertension; E11.8 Type 2 diabetes mellitus with unspecified complications | CPT/HCPCS: 93005; 99212 ==

== ENCOUNTER → 2025-01-28 07:50 | Outpatient (REF) | payer OTHER, SELFPAY ==
--- NOTE | ~2025-01-28 | NM_ITS ---
Lexiscan Myocardial perfusion study Indication: Precordial chest pain with prior coronary artery disease to evaluate for myocardial ischemia Technique: The patient was brought in for a Lexiscan perfusion study on January 28, 2025 and was injected 0.4 mg of Lexiscan intravenously. Within a minute of this injection 30 mCi of sestamibi was given intravenously. Images were obtained using the SPECT gamma camera interlaced with the gating device. Images were obtained in supine position. Resting perfusion study was performed on February 01, 2025. Patient was administered 30 mCi of sestamibi intravenously at rest. Images were then obtained in supine position. Images obtained without without CT attenuation. Total DLP 104 mGy-cm. Images were processed with the software and compared side to side in short axis, horizontal long axis and vertical long axis views. Findings: The stress perfusion study showed nonattenuated images show moderately reduced uptake in the distal lateral wall and mildly reduced uptake in the lateral as well as distal anterior wall. There is also mildly reduced uptake in the basal inferior wall of the LV myocardium. Attenuated corrected images show mildly reduced uptake in the apex with mildly reduced uptake in the distal inferolateral wall of the LV myocardium.. The gated study shows normal LV systolic function with calculated LVEF of 55%. LV cavity is normal in size. The gated study shows normal systolic wall thickening and contraction of segments. Resting study shows nonattenuated images show improved uptake in the lateral wall of the LV myocardium. However this could be related to shifting attenuation related to count position. Attenuated corrected images show improved uptake in the distal inferolateral wall of the LV myocardium.. Gating at rest reveals normal systolic wall motion with ejection fraction at 63%. The findings are consistent with mild intensity small area of distal inferolateral reversible defect suggestive of ischemia.. NM/NM cardiolite stress test Impression: 1. Myocardial perfusion imaging study shows mild intensity small area of inferolateral ischemia 2. Gated LVEF is 55% with stress and 63% with rest 3. Transient ischemic dilatation present Nondiagnostic changes on EKG. Electronically signed by: Nghia Chapa MD 02/01/2025 03:14 PM EDT
--- NOTE | 2025-01-28 07:52 | CA_ITS ---
Transthoracic Echocardiogram Patient (Last, First, Middle): Steve Caceres, Gender: Male Date of : 1955 Age: 69 Procedure Date: 01/28/2025 Procedure Type: Transthoracic Echocardiogram Location: OP Height: 180.34 cm Weight: 78.47 kg BSA: 1.98 m2 Heart Rate: 68 bpm BP: 142 / 88 mmHg Sort Line: TO Referring MD: Lacho García MD Sales Representative [employer]: Nghia Chapa MD Symptoms: I25.10 - Atherosclerotic heart disease of [place] coronary artery without... Study Quality: Adequate w contrast ECG Rhythm: Sinus Conclusions: - 1. Normal LV ejection fraction of 60 65% with mild LVH with impaired relaxation filling pattern 2. Normal cardiac valvular Dopplers 3. Normal RV systolic pressure 4. No gross pericardial effusion Findings Procedure Information Contrast agent, definity, is being given per protocol without apparent complications. Left Ventricle Normal left ventricular size and systolic function. There is mildly increased left ventricular wall thickness. The visually estimated ejection fraction is between 60-65%. Spectral Doppler is indicative of an impaired relaxation filling pattern. E/E prime ratio is between 8 and 15 consistent with indeterminate filling pressures. Right Ventricle Normal right ventricular cavity size and systolic function. Atria Both atria are normal in size. There is no evidence of interatrial shunt. Aortic Valve Normal aortic valve structure and function. There is no aortic valve stenosis. There is no aortic valve regurgitation. Mitral Valve Likely normal mitral valve structure and function. There is trace mitral valve regurgitation. There is no mitral valve stenosis. Pulmonic Valve The pulmonic valve is likely normal. There is trace pulmonic valve regurgitation. Tricuspid Valve Normal tricuspid valve structure. There is trace tricuspid valve regurgitation. The right ventricular systolic pressure is normal. The right ventricular systolic pressure is 19 mmHg. Normal right atrial pressure. There is no evidence of pulmonary hypertension. Great Vessels The pulmonary artery was not well visualized. There is no dilatation of the ascending aorta measuring 3.40 cm. Small plaque is seen in the sino tubular ridge. Venous The inferior vena cava is normal in size and collapses greater than 50% with inspiration. Pericardium/Pleural There is no evidence of pericardial effusion. Prior Study Comparison No significant change compared to prior study dated: 01/15/2022. Measurements 2D Linear Measurements IVSd: 1.23 0.6-0.9/0.6-1.0 cm LVIDd: 3.62 3.9-5.3/4.2-5.9 cm LVIDd Index: 1.83 2.4-3.2/2.2-3.1 cm/m2 LVIDs: 2.69 2.0-3.6 cm LVPWd: 1.25 0.7-1.1 cm LA Diam: 4.00 2.7-3.8/3.0-4.0 cm LAIDs Index: 2.02 1.5-2.3 cm/m2 LV Mass: 189.05 67-162/88-224 g LV Mass Index: 95.48 43-95/49-115 g/m2 LVOT Diam: 2.20 3.0+(-)1.3 cm Mitral Valve MV Pk E: 0.60 MV PK A: 1.04 MV Decel Time: 275.00 E/A: 0.60 E'Lateral: 5.22 E'Medial: 3.26 E/E' Med: 18.40 E/E' Lat: 11.50 PHT: 80.00 MVA PHT: 2.75 Decel Montgomery: 2.18 Aortic Valve AoV Pk Fermin: 1.28 AoV Mn Fermin: 0.86 AoV VTI: 0.25 AoV Pk Grad: 7.00 Aov Mn Grad: 3.00 CEDRIC Cont.VTI: 2.56 LVOT LVOT Pk Fermin: 1.01 LVOT Mn Fermin: 0.62 LVOT VTI: 0.17 LVOT Pk Grad: 4.00 LVOT Mn Grad: 2.00 LVOT Diam: 2.20 LVOT Area: 3.80 Diastolic Function MV Pk E: 0.60 MV Pk A: 1.04 E/A: 0.60 E'Medial: 3.26 E/E' Med: 18.40 E' Laterial: 5.22 E/E' Lat: 11.50 Right Ventricle TAPSE (mm): 7.30 TVS' Fermin: 4.68 Tricuspid Valve TR Pk Fermin: 2.02 TR Pk Grad: 16.00 RA Press: 3.00 RVSP: 19.00 Great Vessels Aorta Sinus of Valsalva: 3.54 2.0-3.5 cm Ao Asc: 3.40 2.1-3.4 cm Updated in Other Vendor System with Status of Final Nghia Chapa MD electronically signed on 01/28/2025 11:21:30 AM with status of Final
--- NOTE | 2025-01-28 07:52 | CA_ITS ---
Acquisition Time: 2025-01-28 09:20:14 Total Exercise Time: 00:02:00 Test Indications: CP, ABN EKG Medications: SEE H&P Protocol: LEXISCAN Max HR: 94 BPM 62% of Pred: 151 BPM Max BP: 130/80 mmHG Max Work Load: 1.0 METS Pharmacological stress test with Lexiscan while pt marches in chair, with reports of SOB, without any arrythmias, with normotensive response to injection. Nondiagnostic EKG for ischemia. With baseline downsloping ST depression inferiorly and in leads V5, V6. In recovery, breathing returned to baseline. Nuclear images pending. Test reviewed with Dr. Chapa. Referred By: Lacho García Electronically Signed By: Storm Ram
--- OUTSIDE RECORDS SUMMARY | 2025-01-28 07:52 | XMS_ITS | Data Portability ---
Author Organization [facility] [place] [facility] Address [address] [place] [address] Care Team Providers Care Road Oiler Name Role Phone ALIYAH GILLIAM Primary Care [...] sugar was high today at 350. VSS. Tacker Off on site reports no acute distress. POC [...] None recorded. Lab BMP, serum or plasma 2024 025 [facility], [address] [place] [address], [id number] 5 19:10:10 BMP, serum or plasma 2023 024 [facility], [address] [place] [address], [phone] 4 18:27:34 hemoglobin + hematocrit, blood 2023 024 [facility], [address] [place] [address], [phone] 4 18:28:18 Referral None recorded. Procedures None recorded. Surgeries None recorded. Imaging electrocard iogram 2023 024 [facility], [address] [place] [address], [id number] 4 18:26:51 Medication Orders cyclobenzap rine 5 mg tablet 2024 025 [facility], [address] [place] [address], [id number], 5 12:13:20 ketorolac 15 mg/mL injection solution 2024 025 [facility], [address] [place] [address], [id number], 5 16:50:58 ketorolac 15 mg/mL injection solution 2023 024 [facility], [address] [place] [address], [id number], 4 18:21:13 sodium chloride 0.9 % intravenous solution 2023 024 [facility], [address], [place], [id number], 18:21:13 metoclopram amanda 5 mg/mL injection solution 2023 024 [facility], [address], [place], [id number], 18:21:13 Patient TargetsNo targets recorded. Patient InstructionsNo instructions recorded. Reason for Referral None Reported. Results Created Date Observation Date Name Description Value Unit Range Abnormal Flag Note LastModifiedBy Organization Detail LastModifiedTime 12/20/1912/20/2023 hemog lobin + hemat ocrit , blood Hemoglobin 12.5 Not Available [address], [address] [place] [address] 12/20/2023 18:27:51 12/20/19 24 12/20/2023 hemog lobin + hemat ocrit , blood Hematocrit 37 Not Available [address], [phone] 12/20/2023 18:27:51 12/20/1912/20/2023 BMP, serum or plasm a BUN 15 Not Available [facility] [address], [phone] 12/20/2023 17:47:01 12/20/19 24 12/20/2023 BMP, serum or plasm a Ca 1.15 Not Available [facility] [address], [address] 12/20/2023 17:47:01 12/20/19 24 12/20/2023 BMP, serum or plasm a CI- 108 Not Available [facility] [address], [address] 12/20/2023 17:47:01 12/20/1912/20/2023 BMP, serum or plasm a CRE 1.22 Not Available [facility] [address], [address] 12/20/2023 17:47:01 12/20/19 24 12/20/2023 BMP, serum or plasm a GLU 193 Not Available [facility] [address], [phone] 12/20/2023 17:47:01 12/20/19 24 12/20/2023 BMP, serum or plasm a K+ 5.4 Not Available [facility] [address], [address] 12/20/2023 17:47:01 12/20/19 24 12/20/2023 BMP, serum or plasm a Na+ 143 Not Available [facility] [address], [address] [place] [address] 12/20/2023 17:47:01 12/20/19 24 12/20/2023 BMP, serum or plasm a tCO2 26 Not Available [facility] [address], [address] [place] [address] 12/20/2023 17:47:01 12/20/19 24 12/20/2023 elect neptali balderrama am No observ ation record ed. gbaci [address], [phone] 12/20/2023 18:26:50 Result Notes None recorded. Medical Equipment None Reported. Allergies No known drug allergies Medications Name Sig Start Date Stop Date [...] No t Available doxycycline hyclate 100 mg capsule TAKE 1 CAPSULE BY MOUTH TWICE DAILY FOR 7 DAYS WITH AT LEAST 8 OUNCES WATER. Do not lie down for 30 minutes after taking. active Not Available Not Available No t Available metocloprami de 5 mg/mL injection solution Take 10 mg by injection route. 2023 active Not Available Not Available Not Avai lable tizanidine 2 mg tablet TAKE 1 TO 2 TABLETS BY MOUTH EVERY 6 HOURS AND AT BEDTIME NEEDED FOR MUSCLE SPASMS active Not Available Not Available No t Available ammonium lactate 12 % lotion APPLY TOPICALLY TO AFFECTED AREA(S) DAILY NEEDED FOR DRY SKIN active Not Available Not Available No t Available ibuprofen 800 mg tablet TAKE 1 TABLET BY MOUTH EVERY 8 HOURS FOR PAIN active Not Available Not Available No t Available atenolol 100 mg tablet TAKE 1/2 TABLET BY MOUTH EVERY EVENING active Not [...] tablet TAKE 1 TABLET BY MOUTH EVERY 12 HOURS NEEDED FOR PAIN active Not Available Not Available No t Available sulfamethoxa zole 800 mg-trimethop rim 160 mg tablet TAKE 1 TABLET BY MOUTH TWICE DAILY FOR 10 DAYS active Not Available Not Available No t Available aspirin 81 mg tablet,delay ed release TAKE 1 TABLET BY MOUTH EVERY MORNING active Not Available Not Available No t Available acetaminophe n 500 mg tablet TAKE 2 TABLETS BY MOUTH EVERY 6 HOURS NEEDED FOR PAIN OR FEVER active Not Available Not Available No t Available Muscle Rub 15 %-10 % topical cream APPLY 2 GRAMS TOPICALLY TO AFFECTED AREA(S) TWICE DAILY NEEDED FOR PAIN BACK active Not Available Not Available No t Available spironolacto ne 25 mg tablet TAKE 1/2 TABLET BY MOUTH EVERY MORNING active Not [...] Available Not Available No t Available lisinopril 10 mg tablet TAKE 1 TABLET BY [...] t Available gabapentin 300 mg capsule TAKE 2 CAPSULES BY MOUTH TWICE DAILY IN THE MORNING AND AT BEDTIME active Not Available Not Available No t Available folic acid 1 mg tablet TAKE 1 TABLET BY MOUTH EVERY MORNING ( VITAMIN) active Not Available Not Available No t Available hydralazine 50 mg tablet TAKE 1 TABLET BY MOUTH THREE TIMES DAILY IN THE MORNING, EVENING, AND BEDTIME active Not Available Not Available Not Available sodium chloride 0.9 % intravenous solution Inject 1000 mL by intravenous route. 2023 active Not Available Not Available Not Avai lable azelastine 137 mcg (0.1 %) nasal spray USE 1 SPRAY IN EACH NOSTRIL TWICE DAILY DIRECTED active Not Available Not Available Not Available ibuprofen 600 mg tablet TAKE 1 TABLET BY MOUTH EVERY 6 TO 8 HOURS NEEDED FOR PAIN active Not Available Not Available No t Available methylpredni solone 4 mg tablets in a [...] tablet TAKE 1 TABLET BY MOUTH EVERY 12 HOURS FOR 10 DAYS active Not Available Not Available Not Available Ventolin HFA 90 mcg/actuatio n aerosol inhaler INHALE 2 PUFFS BY MOUTH EVERY 6 HOURS NEEDED SHORTNESS OF BREATH active Not Available Not Available No t Available hydroxyzine pamoate 25 mg capsule TAKE 1 CAPSULE BY MOUTH AT BEDTIME NEEDED FOR SLEEP active Not Available Not Available No t Available cyclobenzapr ine 5 mg tablet TAKE 1 TABLET BY MOUTH THREE TIMES DAILY FOR 5 DAYS active Not Available Not Available N ot Available Alcohol Prep Pads USE TWICE DAILY DIRECTED active Not Available Not Available No [...] Not Available Not Available No t Available Glutose-15 40 % oral gel TAKE 15gm BY MOUTH NEEDED FOR HYPOGLYCEMI A active Not Available Not Available No t Available FreeStyle [place] Lite kit USE DIRECTED TO TEST BLOOD SUGAR THREE TIMES DAILY active Not Available Not Available Not Available Muscle Rub Ultra-Streng th 4 %-30 %-10 % topical cream APPLY TOPICALLY TO THE AFFECTED AREA(S) NIGHTLY NEEDED FOR BACK PAIN active Not Available Not Available No t Available blood pressure test kit-large cuff USE DIRECTED IN THE MORNING active Not Available Not Available Not Available BD Ultra-Fine Montse Pen Needle 32 gauge x USE DIRECTED WITH INSULIN ONCE DAILY active Not Available Not Available N ot Available Certavite-An tioxidant 18 mg-400 mcg tablet TAKE 1 TABLET BY MOUTH EVERY EVENING active Not Available Not Available No t Available Vitamin D3 50 mcg (2,000 unit) capsule TAKE 1 CAPSULE BY MOUTH EVERY MORNING active Not Available Not Available No t Available TRUEplus Lancets 33 gauge USE DIRECTED TO TEST BLOOD SUGAR THREE TIMES DAILY active Not Available Not Available Not Available Jardiance 10 mg tablet TAKE 1 TABLET BY MOUTH EVERY MORNING active Not Available Not Available No t Available Jardiance 25 mg tablet TAKE 1 TABLET BY MOUTH EVERY MORNING active Not Available Not Available No t Available Tresiba FlexTouch U-100 insulin 100 unit/mL (3 mL) subcutaneous pen INJECT 10 UNITS SUBCUTANEOU SLY EVERY DAY IN THE MORNING active Not Available Not Available No t Available FreeStyle Precision [place] Strips USE DIRECTED TO TEST BLOOD SUGAR THREE TIMES DAILY active Not Available Not Available Not Available [employer] G6 Transmitter device USE DIRECTED active Not Available Not Available No t Available Ozempic 1 mg/dose (4 mg/3 mL) subcutaneous pen injector Inject 1 MG SUBCUTANEOU SLY EVERY 7 DAYS IN THE ABDOMEN, THIGHS OR UPPER ARM. ROTATE INJECTION SITES. active Not Available Not Available No t Available Ozempic 0.25 mg or 0.5 mg (2 mg/3 mL) subcutaneous pen injector INJECT 0.5 MG SUBCUTANEOU SLY EVERY 7 DAYS IN THE ABDOMEN, THIGHS, OR UPPER ARM, ROTATE INJECTION SITES. active Not Available Not Available No t Available FreeStyle Yanni 3 [place] USE DIRECTED TO TEST BLOOD SUGAR active Not Available Not Available No t Available FreeStyle Yanni 3 Plus Sensor device USE DIRECTED TO TEST BLOOD SUGAR CHANGE EVERY 15 DAYS active Not Available Not Available No t Available Vitals Date Recorded Respiratory rate Heart rate Body temperature Oxygen saturation Oxygen saturation in Arterial blood by Pulse oximetry Systolic blood pressure Diastolic blood pressure Provider Name and Address Organization Details Last Updated DateTime 4 16 /min 64 /min 98.4 [degF] 98 % 98 % 170 mm[Hg] 70 mm[Hg] Not Available [employer] 4 17:57:34 Date Recorded Respiratory rate Body temperature Heart rate Oxygen saturation Oxygen saturation in Arterial blood by Pulse oximetry Systolic blood pressure Diastolic blood pressure Provider Name and Address Organization Details Last Updated DateTime 4 20 /min 98.5 [degF] 56 /min 100 % 100 % 216 mm[Hg] 83 mm[Hg] Not Available [employer] 4 17:35:22 Date Recorded Body temperature Respiratory rate Heart rate Oxygen saturation Oxygen saturation in Arterial blood by Pulse oximetry Systolic blood pressure Diastolic blood pressure Provider Name and Address Organization Details Last Updated DateTime 5 98.2 [degF] 16 /min 66 /min 98 % 98 % 133 mm[Hg] 70 mm[Hg] Not Available [employer] 5 16:36:03 Social History None recorded. Functional Status None recorded. Mental Status None recorded. Family History Nothing Reported. Medical History No medical history recorded. Past Encounters Encounter ID Performer Location Encounter Start Date Encounter Closed Date Diagnosis/Indication Diagnosis SNOMED-CT Code Diagnosis ICD10 Code Diagnosis Note [id number] Radha Lindsay MD [facility] [address] [place] [phone] 12/13/2023 14:33:21 03/24/2024 14:12:34 Hyperglycemia 78765967 R73.9 Nocturia 810163436 R35.1 [id number] TONY NEUMANN MD [facility] [address] [place] [id number] 12/20/2023 17:35:20 12/20/2023 21:28:56 Headache 78663934 R51.9 Evaluation in the field was performed by my lath hand colleague, as noted above, I provided real-time [...] or any other concerns. Increased blood pressure 56882957 R03.0 Pt had skipped the dose of [...] BP and ongoing bradycardi a. BP before lath hand left 196/70. Headache has resolved. Red flags discussed with the patient Bradycardia 45762229 R00 .1 ECG with sinus bradicardi a. [...] eating anything in the morning, including coffee. [id number] TONY NEUMANN MD [facility] ED Medical [address] [phone] 01/07/2025 16:36:00 01/07/2025 19:59:11 Acute low back pain 930268302 M54.50 The evaluation in the field was performed by my lath hand colleague, as noted above, I provided real-time direction and supervisio n for this visit. The evaluation revealed a 69-year-ol d male presenting with complaints of left lumbar pain for the past 3 days. The pain is localized, without radiation. The patient denies urinary or fecal incontinen ce, lower extremity weakness, or saddle anesthesia . He does report nocturia for over a year, but no dysuria or other urinary symptoms at this time. There is no history of anticoagul ant use or gastrointe stinal bleeding.P er lath hand report, the pain is reproducib le on palpation of the lower left lumbar region and also elicited with range of motion. The patient has tried Tylenol without significan t relief. He has known chronic kidney disease and is followed by Nephrology ; he last saw them earlier this month, although no recent labs were obtained at that visit.Hermelinda womack Signs: BP 133/70, HR 66 (on beta-block er), RR 16, SpO2 98% on room air, Temp 98.2 FExam: Alert and oriented, in no acute distress. Lungs clear to auscultati on. Localized tenderness to palpation in the left lower lumbar region with a palpable knot-like structure under the skin. No overlying erythema or fluctuance . Full range of motion in the lower extremitie s with no neurologic al deficits.B MP: Na 143, K 3.8, iCa 1.21, Cl 108, TCO 25.2, Glucose 195, Lactate 1.6Cr 1.29 (baseline 1.22 on 12/20/2023) , BUN 17Hct 45%, Hb 15.2 g/dL (corrected from 25.2 likely a typo)Aller gies: Reviewed Impression :Localized left lumbar pain, likely musculoske letal in origin, given reproducib ility on palpation and movement, absence of red flag symptoms (e.g., neuro deficits, incontinen ce, fever), and stable renal function. No signs concerning for spinal cord compressio n, nephrolith iasis, or infection at this time. Plan:Ketor olac 15 mg IV was administer ed. Pt was advised to avoid ongoing NSAIDs due to CKDRx for Flexeril 5mg TID x5 days sent to his pharmacyPt advised to use OTC salon pass to help with the painEncour aged rest and gentle stretching exercises, ice or heat applicatio n as toleratedN o acute imaging indicated unless symptoms worsen or persist beyond 1 2 weeksRed flags discussed including : new or worsening lower extremity weakness, numbness or tingling in the legs, especially if bilateral, numbness around the groin or inner thighs, loss of bowel or bladder control, fever or chills, severe, pain not relieved by rest or over-the-c ounter medication s, pain that wakes the patient from sleep, palpable mass that enlarges, becomes warm, or painful, worsening or persistent pain beyond 1 2 weeks despite conservati ve management Primary care, consider__ _ Dispositio n: We discussed the diagnostic uncertaint [...] new or worsening serious symptoms, particular ly new or worsening lower extremity weakness, numbness or tingling in the legs, especially if bilateral, numbness around the groin or inner thighs, loss of bowel or bladder control, fever or chills, severe, pain not relieved by rest or over-the-c ounter medication s, pain that wakes the patient from sleep, palpable mass that enlarges, becomes warm, or painful, worsening or persistent pain beyond 1 2 weeks despite conservati ve management Health Concerns Section Related Observation LastModified by Organization Detai ls LastModified Time None Recorded Concern Status LastModified by Organization Details LastModified Time None Recorded Advance Directives Directive None Recorded Payers Insurance Date Sequence Insurance Name Policy Number Policy Denson Covered Member ID Denson Member ID Guarantor Name 01/07/2025 1 [facility] - DOS ON OR AFTER 2022 - DUAL ELIGIBLE - CORRECTION OPTIONS AND ONE CARE (MEDICARE REPLACEMENT/AD VANTAGE - HMO) Steve Caceres [id number] Steve Caceres Notes Date Note Type Note [...] provided by RN calling inSpanish speaking only memberJose RN Tacker Off POC Test Results from Heather Cotto Blood Glucose Measurement (1) [17:59] Blood Glucose: 461 mg/dL iSTAT Chem8+ (2) [17:59] Na: 138 mEq/L K: 4.8 mEq/L Cl: 105 mEq/L iCa: 1.22 mmol/L TCO2: 26 mmol/L Glu: 358 mg/dL BUN: 27 mg/dL Crea: 1.3 mg/dL Hct: 34 % Hb: 11.6 g/dL A ...................... ...................... ...................... ...................... ...................... ...................... ......... Tacker Off Note From Heather Cotto: [facility] Tacker Off Sacha Cotto SC6 dispatched to a [facility] for a 68 yom C/O [...] tenderness. Blood sugar 461. Urine dip acquired. [facility] consulted; #20 IV placed in [...] ...................... ...................... ...................... ...................... ......... Disposition: Lila Radha Lnidsay MD [address] [place] [address],[address], [place], [phone], [employer] 03/23/2024 19:41:30 12/20/2023 text/html HPI: [facility] RN [...] any additional information to process this visit. Tacker Off POC Test Results from [facility] EKG (1) [17:51] EKG test performed. Attachments uploaded as part of this test result can be found under Documents section. Tacker Off POC Test Results from [facility] epoc (1) [18:13] pH: 7.372 pH [...] ...................... ...................... ...................... ...................... ...................... ...................... ......... Tacker Off Note From [facility]: 68 y/o male found ambulatory on scene presenting with a c/c of a headache. Pt presented awake and alert x4 with a patent airway, adequate respirations and a strong radial pulse. GCS 15. Skin warm and dry. The pt was Qatari speaking only. The pt reported a 6/10 [...] diarrhea, fever, chills, dizziness or lightheadedness. The [facility] was consulted and ordered POC [...] ...................... ...................... ...................... ...................... ......... Disposition: Lila TONY NEUMANN MD [address] [place] [address],[address], [place], [phone], [employer] 12/20/2023 19:23:39 01/07/2025 text/html CRC Nurse Triage Notes (Maryam Galvan): Reason For Request: visiting nurse states pt is hunched over in pain, having a hard time walking, pain is in lower back Denies: Sharp focal or diffuse abdominal pain Vomiting blood/coffee ground material Bloating, jaundice new onset with pain Nausea and vomiting greater than 2 hours with abdominal pain Tearing pain that radiates to back Food Impaction Chief Complaints: Back Pain PMH: Amputation, Hypertension PMH Reviewed at 01/07/2025 - 12:57 Allergies Reviewed at 01/07/2025 - 12:57 Pain Assessment: Level 10 out of 10 Comments: Member's caregiver calling in complaining of pain in lower back 17/05. No obvious symptoms- denies pain with urination. Pain is left lower back. Never had this pain before. Pain started yesterday but was walking fine then, now it's much worse and he can't walk without bad pain. Denies skin issues and falls. Denies fevers. Denies headaches, dizziness, and abd pain. 69 y.o male complains of Back Pain. Identity verified via name/. I provided information on the mobile health provider response time and advised the patient and/or caregiver to monitor reported signs and symptoms. I discussed the warning signs of when to seek emergency care. Nidia Galvan RN Tacker Off Organization Information for Jori Patel Business Legal Name: [facility] Transportation Address: [address] [place] [address], [place] [address], [employer] Supervisor: Huber BROOKS No.: [id number] Tacker Off POC Test Results from Jori Patel [facility] (16:58:03) pH: 7.374 pH units pCO2: 45 mmHg pO2: 33.4 mmHg Na: 143 mmol/L K: 3.8 mmol/L iCa: 1.21 mmol/L Cl: 108 mmol/L TCO2: 25.2 mEq/L Hct: 45 % Hb: 25.2 g/dL Glu: 195 mg/dL Lac: 1.6 mmol/L Cr: 1.29 mg/dL BUN: 17 mg/dL A mmol/L HCO3: 26.2 mmol/L ...................... ...................... ...................... ...................... ...................... ...................... ......... Tacker Off Note From Jori Patel: Pt is a 69 yom, Qatari speaking only. Pt states via brick unloader tender that he began having Left lumbar pain x 3 days. Pt experiences pain on palpation with area of tenderness in Left lower lumbar area and on ROM. [facility] contacted and epoc results confirmed with [facility]. [facility] approved 15mg IV toradol. Rx to pharmacy. Red flags reviewed with pt [facility] Lab Orders: BMP, serum or plasma: Performed [facility] Medication Orders: ketorolac 15 mg/mL injection solution: Administered ...................... ...................... ...................... ...................... ...................... ...................... ......... [facility] Consulted: Tony Neumann ...................... ...................... ...................... ...................... ...................... ...................... ......... Disposition: Fulfilled TONY NEUMANN MD [address] [facility],[address], [place], [address], AMY - BARAK MICHELE 01/07/2025 19:05:37
--- OUTSIDE RECORDS SUMMARY | 2025-01-28 07:52 | XMS_ITS | Encounter Summary ---
Author Organization [employer] Address [address] [facility] [address] [place] [address] Care Team Providers Care Soft Sugar Supervisor Name Role Phone Bobbi Ricks Primary Care Provider [phone] Jing Brooks PharmD Unavailable [phone] Reason for Visit * Reason Comments Med Refill Encounter Details Date Type Department Care Team ([facility] st Contact Info) Description 11/12/2023 Refill [facility] [address] [place], [place] [phone] Bobbi Ricks ANP [address] [place] [address] Essential hypertension Social History Tobacco Use Types [...] Care Team (Late st Contact Info) Description 02/01/2025 9:30 AM EDT Medication Management [facility] [address] [place] [id number] Jing Brooks, PharmD [address] [place] [phone] 04/09/2025 1:30 PM EDT Office Visit [facility] [address] [place] [id number] Bobbi Ricks ANP [address] [place] [phone] documented as of this encounter Goals Goal Patient Goal Type Associated Problems Recent Progress Patient-Stated? Author Blood Pressure < 140/90 Blood Pressure 139/81(2024 1:43 PM EDT) No Piers-Tamirl e, Jing, PharmD Hemoglobin A1c < 7 Result Component 7.8( 11:53 AM EDT) No Piers-Gambl e, Jing, PharmD documented as of this encounter Visit Diagnoses Diagnosis Essential hypertension Unspecified essential hypertension documented in this encounter Additional Health Concerns Assessment Noted Time PHQ-9 Depression Total Score: 14 023 9:40 AM EDT documented as of this encounter Care Teams Soft Sugar Supervisor Relationship Specialty Start Date End Date Bobbi Ricks ANP [address] [place] [phone] PCP - General Family Medicine 8/11/21 Jing Brooks, Julia [address] [place] [id number] Pharmacist Internal Medicine 03/24/24 [employer] 10/02/24 documented as of this encounter
--- OUTSIDE RECORDS SUMMARY | 2025-01-28 07:52 | XMS_ITS | Encounter Summary ---
Author Organization [facility] Address [address] [place] [address] Encounters * CPT with Chris Fierro at [employer] on 2025-01-07 { reasonForRequest : visiting nurse states pt is hunched over in pain, having a hardtime walking, pain is in lower back , patientReports : , denies :[ Sharp focal or diffuse abdominal pain , Vomiting blood/coffee ground material&quo t;, Bloating, jaundice new onset with pain , Nausea and vomiting greater than 2 hours with abdominal pain , Tearing pain that radiates to back , Food Impaction ], chiefComplaints : Back Pain , pmh : Amputation, Hypertension&q uot;, allergies : No Known Drug Allergies , otherAllergies : &quo t;, painAssessment : Level 10 out of 10 , visitOutcome : ,& quot;additionalComments : Member's caregiver calling in complaining of pain in lower back20/10. No obvious symptoms- denies pain with urination. Pain is left lower back. Never had this pain before. Pain started yesterday but was walking fine then, now it's much worse and he can't walk without bad pain. Denies skin issues and falls. Denies fevers. Denies headaches, dizziness, and abd pain. \n\n69 y.o male complains of Back Pain. Identity verified via name/.\nI provided information on the mobile health provider response time and advised the patient and/or caregiver to monitor reported signs and symptoms. I discussed the warning signs of when to seek emergency care. Nidia Galvan RN "} Pt is a 69 yom, Polish speaking only. Pt states via brusher machine that he began having Left lumbar pain x 3 days. Pt experiences pain on palpation with area of tenderness in Left lower lumbar area andon ROM. [facility] contacted and epoc results confirmed with [facility]. [facility] approved 15mg IV toradol. Rx to pharmacy. Red flags reviewed with pt IV_(FLUIDS_AND/OR_MEDICATION), MEDICATION_IM, ORAL_MEDICATION, EKG Written by Chris Fierro on 2025-01-07
--- OUTSIDE RECORDS SUMMARY | 2025-01-28 07:52 | XMS_ITS | Clinical Summary ---
Author Organization [facility] Address [address] [facility] [address] [place] [address] Phone Care Team Providers Care Primary School Teacher Librarian Name Role Phone Bobbi Ricks NP Primary Care Provider [phone] Allergies Active Allergy Reactions Criticality Noted Date [...] patient's age to complete this topic Insurance [facility] ([id number]) IRIS MEJIAS [id number] [facility] ([id number]) IR[place]JIAS [id number] Care Teams Primary School Teacher Librarian Relationship Specialty Start Date End Date Bobbi Ricks NP PCP - General Nurse Practitioner 07/04/23
== END ==
LOC: HO.CARD 07:50
PROVIDERS: PCP Nurse Practitioner Primary Care; Visit Provider Internal Medicine
DX: Z01.810 Encounter for preprocedural cardiovascular examination (principal); I25.119 Atherosclerotic heart disease of native coronary artery with unspecified angina pectoris; R07.2 Precordial pain; I47.9 Paroxysmal tachycardia, unspecified; I25.2 Old myocardial infarction; Z88.8 Allergy status to other drugs, medicaments and biological substances; Z86.79 Personal history of other diseases of the circulatory system; Z85.29 Personal history of malignant neoplasm of other respiratory and intrathoracic organs
CPT/HCPCS: 78452; 93017; 93306; A9500; J0280; J2785; Q9957

== ENCOUNTER → 2025-01-28 07:52 | Outpatient (BNV) | payer OTHER, SELFPAY | PROVIDERS: PCP Nurse Practitioner Primary Care; Visit Provider Internal Medicine Cardiovascular Disease | DX: I42.2 Other hypertrophic cardiomyopathy (principal); I25.10 Atherosclerotic heart disease of native coronary artery without angina pectoris; R94.31 Abnormal electrocardiogram [ECG] [EKG]; R06.02 Shortness of breath | CPT/HCPCS: 78452; 93016; 93018; 93320; 93325; 93350; 93352 ==

== ENCOUNTER 2025-02-22 08:25 | Outpatient (REF) | payer OTHER, SELFPAY ==
--- OUTSIDE RECORDS SUMMARY | 2025-02-22 08:38 | XMS_ITS | Encounter Summary ---
Author Organization [employer] Address [address] [facility] 7t [place] [address] Care Team Providers Care Eight Arm Operator Name Role Phone Bobbi Ricks Primary Care Provider [phone] Jing Brooks PharmD Unavailable [phone] Reason for Visit * Reason Comments Med Refill Encounter Details Date Type Department Care Team ([facility] st Contact Info) Description 11/12/2023 Refill [facility] [address] [place], [place] [phone] Bobbi Ricks ANP [address] [place] [address] Essential hypertension Social History Tobacco Use Types [...] Care Team (Late st Contact Info) Description 03/22/2025 10:00 AM EDT Medication Management [facility] [address] [place] [phone] Jing Brooks, PharmD [address] [place] [phone] 04/09/2025 1:30 PM EDT Office Visit [facility] [address] [place] [phone] Bobbi Ricks ANP [address] [place] [phone] documented as of this encounter Goals Goal Patient Goal Type Associated Problems Recent Progress Patient-Stated? Author Blood Pressure < 140/90 Blood Pressure 134/60(2024 10:34 AM EDT) No Piers-Tamirl parish, Jing, PharmD Hemoglobin A1c < 7 Result Component 7.8( 11:53 AM EDT) No Piers-Gambl e, Jing, PharmD documented as of this encounter Visit Diagnoses Diagnosis Essential hypertension Unspecified essential hypertension documented in this encounter Additional Health Concerns Assessment Noted Time PHQ-9 Depression Total Score: 14 023 9:40 AM EDT documented as of this encounter Care Teams Eight Arm Operator Relationship Specialty Start Date End Date Bobbi Ricks ANP [address] [place] [phone] PCP - General Family Medicine 8/11/21 Jing Brooks, Julia [address] [place] [phone] Pharmacist Internal Medicine 03/24/24 [employer] 10/02/24 documented as of this encounter
--- OUTSIDE RECORDS SUMMARY | 2025-02-22 08:38 | XMS_ITS | Data Portability ---
Author Organization [facility] [place] [facility] Address [address] [place] [address] Care Team Providers Care Criminal Research Specialist Name Role Phone ALIYAH GILLIAM Primary Care [...] sugar was high today at 350. VSS. Mobile Health Vehicle Operator on site reports no acute distress. [...] Lab BMP, serum or plasma 2024 025 [facility], [address] [place] [address], [id number] 5 19:10:10 BMP, serum or plasma 2023 024 [facility], [address] [place] [address], [id number] 4 18:27:34 hemoglobin + hematocrit, blood 2023 024 [facility], [address] [place] [address], [id number] 4 18:28:18 Referral None recorded. Procedures None recorded. Surgeries None recorded. Imaging electrocard iogram 2023 024 [facility], [address] [place] [address], [id number] 4 18:26:51 Medication Orders cyclobenzap rine 5 mg tablet 2024 025 [facility], [address] [place] [address], [id number], 5 12:13:20 ketorolac 15 mg/mL injection solution 2024 025 [facility], [address] [place] [address], [id number], 5 16:50:58 ketorolac 15 mg/mL injection solution 2023 024 [facility], [address] [place] [address], [id number], 4 18:21:13 sodium chloride 0.9 % intravenous solution 2023 024 [facility], [address] [place], [place], [id number], 18:21:13 metoclopram amanda 5 mg/mL injection solution 2023 024 [facility], [address] [place], [place], [id number], 18:21:13 Patient TargetsNo targets recorded. Patient InstructionsNo instructions recorded. Reason for Referral None Reported. Results Created Date Observation Date Name Description Value Unit Range Abnormal Flag Note LastModifiedBy Organization Detail LastModifiedTime 12/20/1912/20/2023 hemog lobin + hemat ocrit , blood Hemoglobin 12.5 Not Available [address], [address] [place] [address] 12/20/2023 18:27:51 12/20/19 24 12/20/2023 hemog lobin + hemat ocrit , blood Hematocrit 37 Not Available [address], [phone] 12/20/2023 18:27:51 12/20/1912/20/2023 BMP, serum or plasm a BUN 15 Not Available [facility] [address], [address] 12/20/2023 17:47:01 12/20/19 24 12/20/2023 BMP, serum or plasm a Ca 1.15 Not Available [facility] [address], [address] 12/20/2023 17:47:01 12/20/19 24 12/20/2023 BMP, serum or plasm a CI- 108 Not Available [facility] [address], [address] 12/20/2023 17:47:01 12/20/1912/20/2023 BMP, serum or plasm a CRE 1.22 Not Available [facility] [address], [address] 12/20/2023 17:47:01 12/20/19 24 12/20/2023 BMP, serum or plasm a GLU 193 Not Available [facility] [address], [address] 12/20/2023 17:47:01 12/20/19 24 12/20/2023 BMP, serum or plasm a K+ 5.4 Not Available [facility] [address], [address] 12/20/2023 17:47:01 12/20/19 24 12/20/2023 BMP, serum or plasm a Na+ 143 Not Available [facility] [address], [address] [place] [address] 12/20/2023 17:47:01 12/20/19 24 12/20/2023 BMP, serum or plasm a tCO2 26 Not Available [facility] [address], [address] [place] [address] 12/20/2023 17:47:01 12/20/19 24 12/20/2023 elect neptali balderrama am No observ ation record ed. gbaci [address], [phone] 12/20/2023 18:26:50 Result Notes None recorded. Medical [...] Available Not Available No t Available [employer] Fitzpatrick Lite kit USE DIRECTED TO TEST BLOOD [...] active Not Available Not Available Not Available [employer] G6 Transmitter device USE DIRECTED active Not [...] Available No t Available [employer] Yanni 3 [place] USE DIRECTED TO TEST BLOOD SUGAR active Not Available Not Available No t Available [employer] Yanni 3 Plus Sensor device USE DIRECTED TO TEST BLOOD SUGAR CHANGE EVERY 15 DAYS active Not Available Not Available No t Available Vitals Date Recorded Respiratory rate Heart rate Body temperature Oxygen saturation Oxygen saturation in Arterial blood by Pulse oximetry Systolic And Diastolic Provider Name and Address Organization Details Last Updated DateTime 4 16 /min 64 /min 98.4 [degF] 98 % 98 % 170/70 mm[Hg] Not Available [facility] [facility] [employer] 4 17:57:34 Date Recorded Respiratory rate Body temperature Heart rate Oxygen saturation Oxygen saturation in Arterial blood by Pulse oximetry Systolic And Diastolic Provider Name and Address Organization Details Last Updated DateTime 4 20 /min 98.5 [degF] 56 /min 100 % 100 % 216/83 mm[Hg] Not Available [facility] [employer] 4 17:35:22 Date Recorded Body temperature Respiratory rate Heart rate Oxygen saturation Oxygen saturation in Arterial blood by Pulse oximetry Systolic And Diastolic Provider Name and Address Organization Details Last Updated DateTime 5 98.2 [degF] 16 /min 66 /min 98 % 98 % 133/70 mm[Hg] Not Available [facility] [employer] 5 16:36:03 Social History None recorded. Functional Status None recorded. Mental Status None recorded. Family History Nothing Reported. Medical History No medical history recorded. Past Encounters Encounter ID Performer Location Encounter Start Date Encounter Closed Date Diagnosis/Indication Diagnosis SNOMED-CT Code Diagnosis ICD10 Code Diagnosis Note [id number] Radha Lindsay MD [facility] [address] [place] [address] 12/13/2023 14:33:21 03/24/2024 14:12:34 Hyperglycemia 95918426 R73.9 Nocturia 906036657 R35.1 [id number] BECCA NEUMANN MD [facility] [address] [place] [phone] 12/20/2023 17:35:20 12/20/2023 21:28:56 Headache 43406627 R51.9 Evaluation in the field was performed by my mold maintenance technician colleague, as noted above, I provided real-time [...] or any other concerns. Increased blood pressure 99048131 R03.0 Pt had skipped the dose of [...] BP and ongoing bradycardi a. BP before mold maintenance technician left 196/70. Headache has resolved. Red flags discussed with the patient Bradycardia 14012754 R00 .1 ECG with sinus bradicardi a. [...] eating anything in the morning, including coffee. [id number] [facility] ED Medical [address] [address] 01/07/2025 16:36:00 01/07/2025 19:59:11 Acute low back pain [id number] M54.50 The evaluation in the field was performed by my mold maintenance technician colleague, as noted above, I provided real-time [...] ant use or gastrointe stinal bleeding.P er mold maintenance technician report, the pain is reproducib le on palpation of the lower left lumbar region and also elicited with range of motion. The patient has tried Tylenol without significan t relief. He has known chronic kidney disease and is followed by Nephrology ; he last saw them earlier this month, although no recent labs were obtained at that visit.Hermelinda l Signs: BP 133/70, HR 66 (on beta-block [...] Denson Member ID Guarantor Name 01/07/2025 1 [facility] - DOS ON OR AFTER 2022 - DUAL ELIGIBLE - USP OPTIONS AND ONE CARE (MEDICARE REPLACEMENT/AD VANTAGE - HMO) Steve Caceres [id number] Steve Caceres
--- OUTSIDE RECORDS SUMMARY | 2025-02-22 08:38 | XMS_ITS | Clinical Summary ---
Author Organization [facility] Address [address] [facility] [address] [place] [address] Phone Care Team Providers Care House Director Name Role Phone Bobbi Ricks NP Primary Care Provider [phone] Allergies Active Allergy Reactions Criticality Noted Date [...] Hemoglobin A1C 01/24/2024 10/24/2023 Influenza Vaccine (#1) 2025 , 04/08/2019, 05/29/2018, Additional history exists Pneumococcal Vaccine: 50+ Years Completed 03/18/2023, 05/27/2020, 12/03/2016, Additional history exists Pneumococcal Vaccine: Peds (0 to 5 Years) and At-Risk Patients (6 to 49 Years) Discontinued 03/18/2023, 05/27/2020, 12/03/2016, Additional history exists Hepatitis B Vaccine Aged Out 04/05/2023, 04/26/2011, 10/12/2010 No longer eligible based on patient's age to complete this topic Insurance [facility] ([id number]) IRIS MEJIAS [id number] [facility] ([id number]) IR[place] MEJIAS [phone] Care Teams House Director Relationship Specialty Start Date End Date Bobbi Ricks NP PCP - General Nurse Practitioner 07/04/23
[2025-02-22 09:23] LABS: INTERNATIONAL NORM RATIO 1.0 (0.9-1.1); Prothrombin Time 11.4 SEC (10.9-12.4)
[2025-02-22 09:26] LABS: Hematocrit 48.1 % (42.0-52.0); Hemoglobin 17.0 g/dl (14.0-18.0); Mean Corpuscular HGB Conc 35.3 g/dl (31.0-36.0); Mean Corpuscular Hemoglobin 34.6 pg (27.0-33.0); Mean Corpuscular Volume 98.0 fL (80.0-98.0); NRBC Abs Auto 0.000 X10*3/uL (0.0-0.012); NRBC Pct Auto 0.0 /100WBC (0.0-0.2); Platelet Count 160 X10*3/uL (160-400); Red Blood Count 4.91 X10*6/uL (4.60-5.80); White Blood Count 4.0 X10*3/uL (4.8-10.8)
[2025-02-22 09:55] LABS: Anion Gap 11 (12-20); Blood Urea Nitrogen 13 mg/dL (9-16); Calcium 9.0 mg/dL (8.4-10.2); Carbon Dioxide 28 mmol/L (22-29); Chloride 110 mmol/L (96-108); Estimated Glomerular Filt Rate 59; Potassium 3.7 mmol/L (3.3-5.1); Sodium 145 mmol/L (135-145)
== END 2025-02-22 08:26 | disposition home or self-care (01) ==
LOC: HO.LAB 08:25
PROVIDERS: PCP Nurse Practitioner Primary Care
DX: R94.39 Abnormal result of other cardiovascular function study (principal)
CPT/HCPCS: 36415; 80048; 85027; 85610

== ENCOUNTER 2025-02-26 13:37 | Outpatient (REF) | payer OTHER, SELFPAY ==
--- NOTE | ~2025-02-26 | US_ITS ---
EXAMINATION: US RETROPERITONEAL LIMITED (RENAL ONLY) CLINICAL INFORMATION: Acute kidney failure with tubular necrosis. COMPARISON: None available. TECHNIQUE: Real-time imaging of the kidneys. FINDINGS: RIGHT KIDNEY: 10.7 x 5.6 x 5.2 cm (SAG x AP x TRV). The kidney is normal in size, contour, and echogenicity. Renal cortical thickness is normal. No calculi or focal parenchymal lesions. No hydronephrosis. LEFT KIDNEY: 9.6 x 5.3 x 4.4 cm (SAG x AP x TRV). The kidney is normal in size, contour, and echogenicity. Renal cortical thickness is normal. No calculi or focal parenchymal lesions. No hydronephrosis. US/US renal BI IMPRESSION: Normal kidneys bilaterally. Electronically signed by: Thiago José MD 02/26/2025 02:15 PM EDT
--- OUTSIDE RECORDS SUMMARY | 2025-02-26 13:40 | XMS_ITS | Clinical Summary ---
Author Organization [facility] Address [address] [facility] [address] [place] [address] Phone Care Team Providers Care Product Communications Manager Name Role Phone Bobbi Ricks NP Primary Care Provider [phone] Allergies Active Allergy Reactions Criticality Noted Date [...] patient's age to complete this topic Insurance [facility] ([id number]) IRIS MEJIAS [phone] [facility] ([id number]) IRIS MEJIAS [phone] Care Teams Product Communications Manager Relationship Specialty Start Date End Date Bobbi Ricks NP PCP - General Nurse Practitioner 07/04/23
--- OUTSIDE RECORDS SUMMARY | 2025-02-26 13:40 | XMS_ITS | Encounter Summary ---
Author Organization [employer] Address [address] [facility] 7[address] [place] [address] Care Team Providers Care Weight Inspector Name Role Phone Bobbi Ricks ELAINA Primary Care Provider [phone] Jing Brooks PharmD Unavailable [phone] Encounter Details Date Type Department Care Team (Late st Contact Info) Description 02/22/2025 Orders Only GENERIC EXTERNAL DATA DEPARTMENT Provider, Generic External Data Social History Tobacco Use Types Packs/Day Years [...] Description 03/22/2025 10:00 AM EDT Medication Management [facility] [address] [place] [phone] Jing Brooks, PharmD [address] [place] [phone] 04/09/2025 1:30 PM EDT Office Visit [facility] [address] [place] [phone] Bobbi Ricks, ANP [address] [place] [address] documented as of this encounter Goals Goal Patient Goal Type Associated Problems Recent Progress Patient-Stated? Author Blood Pressure < 140/90 Blood Pressure 134/60(2024 10:34 AM EDT) No Rishis-Shelley lugo, Jing, PharmD Hemoglobin A1c < 7 Result Component 7.8( 11:53 AM EDT) No Rishis-Tamirl parish, Jing, PharmD documented as of this encounter Procedures Procedure Name Priority Date/Time Associated Diagnosis Comments PROTHROMBIN TIME-INR Routine 02/22/2025 8:38 AM EDT CBC Routine 02/22/2025 8:38 AM EDT BASIC METABOLIC PANEL Routine 02/22/2025 8:38 AM EDT documented in this encounter Results * (ABNORMAL) Basic Metabolic Panel (02/22/2025 8:38 AM EDT) Sodium 145 135 - 145 mmol/L [facility] Potassium 3.7 3.3 - 5.1 mmol/L [facility] Chloride 110(H) 96 - 108 mmol/L [facility] Carbon Dioxide 28 22 - 29 mmol/L [facility] Anion Gap 11(L) 12 - 20 [facility] Urea Nitrogen (BUN) 13 9 - 16 mg/dL [facility] Creatinine, Serum 1.21 0.5 - 1.4 mg/dL [facility] Estimated Glomerular Filt Rate 59 [facility] Comment:Chronic Kidney Disea se: Estimated GFR < 60 mL/min/1.43q6Rokxlu Kidney Disease: Estimated GFR < 15 mL/min/1.73m2 Glucose 108 60 - 115 mg/dL [facility] Calcium 9.0 8.4 - 10.2 mg/dL [facility] 02/22/2025 8:38 AM EDT 02/22/2025 8:38 AM EDT us Generic External Data Provider LAB BLOOD ORDERAB LES Final Result Performing Organization Address City/State/[facility] Co de Phone Number [facility] [address] [place] [phone] * (ABNORMAL) CBC (02/22/2025 8:38 AM EDT) White Blood Count 4.0(L) 4.8 - 10.8 X10*3/uL [facility] Red Blood Count 4.91 4.60 - 5.80 X10*6/uL [facility] Hemoglobin 17.0 14.0 - 18.0 g/dl [facility] Hematocrit 48.1 42.0 - 52.0 % [facility] Mean Corpuscular Volume 98.0 80.0 - 98.0 fL [facility] Mean Corpuscular Hemoglobin 34.6(H) 27.0 - 33.0 pg [facility] Mean Corpuscular HGB Conc 35.3 31.0 - 36.0 g/dl [facility] Red Cell Distribution Width 13.7 11.0 - 16.0 % [facility] Platelet Count 160 160 - 400 X10*3/uL [facility] Mean Platelet Volume 8.7(L) 9.4 - 12.4 fL [facility] NRBC Pct Auto 0.0 0.0 - 0.2 /100WBC [facility] NRBC Abs Auto 0.000 0.0 - 0.012 X10*3/uL [facility] 02/22/2025 8:38 AM EDT 02/22/2025 8:38 AM EDT Generic External Data Provider LAB BLOOD ORDERAB LES Final Result Performing Organization Address [facility] Co de Phone Number [facility] [address] [place] [phone] * Prothrombin Time-INR (02/22/2025 8:38 AM EDT) Prothrombin Time 11.4 10.9 - 12.4 SEC [facility] INTERNATIONAL NORM RATIO 1.0 0.9 - 1.1 [facility] Comment:INTERNATIONAL NORMAL IZED RATIO (INR) REFERENCE RANGES Reference RangeFor patients not on anticoagulant therapy: 0.9 - 1.1INR ranges for oral anticoagulanttherapy:For prevention and treatment of venous thrombosis and pulmonary embolism: 2.0 - 3.0For acute myocardial infarction with aspirin therapy: 2.0 - 3.0For acute myocardial infarction without aspirin therapy: 3.0 - 4.0For patients with mechanical prosthetic heart valves: 2.5 - 3.5 02/22/2025 8:38 AM EDT 02/22/2025 8:38 AM EDT Generic External Data Provider LAB BLOOD ORDERAB LES Final Result Performing Organization Address [facility] Co de Phone Number [facility] [address] [place] [phone] documented in this encounter Visit Diagnoses Not on filedocumented in this encounter Additional Health Concerns Assessment Noted Time PHQ-9 Depression Total Score: 2 10/27/19 25 11:28 AM EDT documented as of this encounter Care Teams Weight Inspector Relationship Specialty Start Date End Date Bobbi Ricks ANP [address] [place] [address] PCP - General Family Medicine 03/08/21 Jing Brooks PharmD [address] [place] [address] Pharmacist Internal Medicine 03/24/24 [employer] 10/02/24 documented as of this encounter
== END 2025-02-26 13:38 | disposition home or self-care (01) ==
LOC: HO.US 13:37
PROVIDERS: PCP Nurse Practitioner Primary Care; Visit Provider Internal Medicine Hypertension Specialist
DX: N17.0 Acute kidney failure with tubular necrosis (principal); N18.31 Chronic kidney disease, stage 3a
CPT/HCPCS: 76775

== ENCOUNTER → 2025-02-26 13:39 | Outpatient (BNV) | payer OTHER, SELFPAY | PROVIDERS: PCP Nurse Practitioner Primary Care; Visit Provider Radiology Diagnostic Radiology | DX: N17.0 Acute kidney failure with tubular necrosis (principal) | CPT/HCPCS: 76775 ==

== ENCOUNTER 2025-03-02 09:27 | Outpatient (REF) | payer OTHER, SELFPAY ==
--- NOTE | 2025-03-02 09:30 | EMG_ITS ---
Left tibial and peroneal motor studies were performed left superficial peroneal and sural sensory studies were performed and median and lateral plantars mixed sensory studies were performed. Tibial H-reflex was obtained and paraspinal muscles were tested with a needle. 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
--- OUTSIDE RECORDS SUMMARY | 2025-03-02 09:51 | XMS_ITS | Encounter Summary ---
Author Organization [employer] Address 75 [facility] 7t [place] [address] Care Team Providers Care Territory Sales Representative Name Role Phone Bobbi Ricks Primary Care Provider [phone] Jing Brooks PharmD Unavailable [phone] Reason for Visit * Reason Comments Med Refill Encounter Details Date Type Department Care Team ([facility] st Contact Info) Description 11/12/[address] [facility] MEDICINE [address] [place], [place] [phone] Bobbi Ricks ANP 230 [place] [address] Essential hypertension Social History Tobacco Use Types [...] 10:00 AM EDT Medication Management [facility] MEDICINE [address] [place] [address] Jing Brooks, PharmD [address] [place] [address] 04/09/2025 1:30 PM EDT Office Visit [facility] MEDICINE [address] [place] [address] Bobbi Ricks ANP [address] [place] [address] documented as of this encounter Goals Goal [...] documented as of this encounter Care Teams Territory Sales Representative Relationship Specialty Start Date End Date Bobbi Ricks ANP [address] [place] [address] PCP - General Family Medicine 8/11/21 Jing Brooks, Julia [address] [place] [address] Pharmacist Internal Medicine 03/24/24 [employer] 10/02/24 documented as of this encounter
--- OUTSIDE RECORDS SUMMARY | 2025-03-02 09:51 | XMS_ITS | Clinical Summary ---
Author Organization [facility] Address 100 [facility] 20 0 [place] [address] Phone Care Team Providers Care Manager Process Name Role Phone Bobbi Ricks NP Primary Care Provider [phone] Allergies Active Allergy Reactions Criticality Noted Date [...] patient's age to complete this topic Insurance [facility] ([id number]) IRIS MEJIAS [id number] [facility] ([id number]) IRIS MEJIAS [phone] Care Teams Manager Process Relationship Specialty Start Date End Date Bobbi Ricks NP PCP - General Nurse Practitioner 07/04/23
== END 2025-03-02 09:28 | disposition home or self-care (01) ==
LOC: HO.NEURO 09:27
PROVIDERS: PCP Nurse Practitioner Primary Care; Visit Provider Nurse Practitioner Primary Care
DX: R20.0 Anesthesia of skin (principal); M79.2 Neuralgia and neuritis, unspecified
CPT/HCPCS: 95886; 95910

== ENCOUNTER → 2025-03-02 09:30 | Outpatient (BNV) | payer OTHER, SELFPAY | PROVIDERS: PCP Nurse Practitioner Primary Care; Visit Provider Psychiatry & Neurology Neurology | DX: G62.89 Other specified polyneuropathies (principal) | CPT/HCPCS: 95886; 95910 ==

== ENCOUNTER → 2025-03-16 23:59 | Outpatient (BNV) | payer OTHER, SELFPAY | PROVIDERS: PCP Nurse Practitioner Primary Care; Visit Provider Internal Medicine Cardiovascular Disease | DX: I25.708 Atherosclerosis of coronary artery bypass graft(s), unspecified, with other forms of angina pectoris (principal) | CPT/HCPCS: 93459; 99152 ==

== ENCOUNTER 2025-03-24 13:36 | Outpatient (AMB) | payer OTHER, SELFPAY ==
--- NOTE | 2025-03-24 13:58 | MHC.OFFVIS ---
Vital Signs 03/24/25 14:02 Height 5 ft 11 in Weight 173 lb BMI 24.1 BP 128/68 Blood Pressure Location Lt brachial Position Sitting Pulse 62 Pulse Source Pulse Oximeter Intake Visit Reasons: cardiac cath Plastic Surgeon Required: Yes Plastic Surgeon Name: JOHN [id number] Allergies amlodipine Adverse Reaction (Unknown, Verified 01/04/25 15:31) leg edema Medication List - Last Reconciled 03/24/25 by Lacho García MD acetaminophen ER 650 mg PO Q8H PRN aspirin 81 mg PO QAM atenolol 100 mg PO DAILY atorvastatin 80 mg PO BEDTIME 30 days blood sugar diagnostic (FreeStyle Lite Strips) 3times a day cholecalciferol (vitamin D3) 50 mcg PO QAM docusate sodium 100 mg PO BID PRN empagliflozin (Jardiance) 10 mg PO DAILY folic acid 1 mg PO DAILY folic acid 1 mg PO DAILY gabapentin 600 mg PO BEDTIME hydralazine 50 mg PO TID isosorbide mononitrate ER 120 mg PO QPM lancets (TRUEplus Lancets) 3 times a day levothyroxine 125 mcg PO QAM melatonin 6 mg PO BEDTIME PRN multivitamin with iron 1 tab PO DAILY pantoprazole 40 mg PO QAM ranolazine ER 500 mg PO BID tamsulosin 0.4 mg PO QPM HPI Comments Details: Steve returns for follow-up regarding coronary disease. He needs preoperative evaluation for anal surgery. History of right coronary artery stenting in the past and subsequently had coronary artery bypass surgery-2020. For the most part, he is doing fine. Few weeks back, he had some chest pain which resolved spontaneously but has not recurred. Because of this, he underwent further workup including echocardiogram, stress test and diagnostic catheterization. He states he is actually doing quite well. No new concerns. [facility] Medical History (Updated 02/09/25 @ 12:31 by Storm Ram NP) Perianal infection Acquired hypothyroidism Dyslipidemia NSVT (nonsustained ventricular tachycardia) Atherosclerotic cardiovascular disease Coronary artery arteriosclerosis Essential hypertension Type 2 diabetes mellitus with diabetic polyneuropathy Surgical History History of colon resection Hx of colonoscopy History of cardiac catheterization Family History Father No problems noted. Mother No problems noted. Social History Household Members: None Housing: Condominium Do you presently have visiting nurse or other home services: No Alcohol intake: current Alcohol intake frequency: holidays/special occasions only Comment: pt refused camera in room, states unable to sleep with light from equipment Patient Tobacco Use Status: Never used Tobacco Second Hand Smoke Exposure: No Advance Directives Date on File: 10/03/20 service: No Review of Systems Const Denies weakness ENT Denies dizziness Card Denies chest pain, Denies chest pain with activity, Denies syncope, Denies rapid heart rate, Denies pedal edema, Denies edema, Denies leg edema, Denies lightheadedness, Denies palpitations, Denies dyspnea, Denies dyspnea on exertion and Denies orthopnea Resp Denies cough, Denies dyspnea and Denies dyspnea on exertion GI Denies hematochezia and Denies change in stool character Musc Denies abnormal gait, Denies muscle cramps, Denies muscle weakness, Denies numbness, Denies radiating pain into limb and Denies tingling Neuro Denies abnormal gait, Denies dizziness, Denies syncope, Denies numbness, Denies tingling and Denies weakness Endo Denies palpitations Physical Exam Vital Signs: Last Vital Signs Pulse 62 03/24/25 14:02 BP 128/68 03/24/25 14:02 BMI result Body Mass Index 24.1 Const General: comfortable and no acute distress Orientation/consciousness: patient oriented x3 HEENT Other: Unremarkable Head: Yes normal to inspection Neck Neck: Yes normal visual inspection Chest Chest palpation & inspection: normal inspection of the chest Resp Auscultation: clear to auscultation bilaterally Cardio Palpation: normal PMI Heart sounds: S1 normal heart sound present, S2 normal heart sound present, no gallops, Murmur heart sound present systolic I/ and at the apex and no rubs GI Palpation (GI): Soft to palpation Back/Spine/Pelvis Other: unremarkable Skin General skin exam: no rashes or lesions noted Neuro General: patient oriented x3 Extrem General: Yes normal to inspection Psych Mental Status: mental status grossly normal Assessment & Plan Assessment & Plan (1) Preoperative cardiovascular examination: Code(s): Z01.810 - Encounter for preprocedural cardiovascular examination Category: Medical Plan: Intermediate cardiac risk. May proceed as planned. (2) Atherosclerotic cardiovascular disease: Code(s): I25.10 - Atherosclerotic heart disease of cheesh-na coronary artery without angina pectoris Category: Medical Plan: Echocardiogram with LVEF of 60-65%. No significant valvular findings. Myocardial perfusion imaging study with inferolateral ischemia. Cardiac catheterization with patent stent in the RCA; patent CORREA to LAD with severe ostial and proximal stenosis. Patent graft to 1st diagonal/OM. Overall, medical management recommended. Continue aspirin and statins. Continue aspirin and statins. Last available LDL 42 mg/dL. (3) Status post coronary artery bypass graft: Code(s): Z95.1 - Presence of aortocoronary bypass graft Category: Surgical Plan: As above. (4) NSVT (nonsustained ventricular tachycardia): Code(s): I47.2 - Ventricular tachycardia Category: Medical Plan: No recent issues. Continue beta-blockers. (5) Essential hypertension: Code(s): I10 - Essential (primary) hypertension Category: Medical Plan: Stable. No changes. (6) Type 2 diabetes mellitus with unspecified complications: Code(s): E11.8 - Type 2 diabetes mellitus with unspecified complications Category: Medical Plan: No recent hemoglobin A1c. Last random glucose is 108. In August, it seems it was quite high in the 500s. On Jardiance. Plan Discussion Notes I discussed with the patient that he is cleared for the upcoming anal surgery, as there are no recent episodes of chest pain or other contraindications. Patient was informed and verbally consented to the use of an ambient scribe for clinic note documentation during this visit. Coding Level of Care Code Est Pt Level 4 (88637) Complex EM visit Add On G2211 Diagnoses Preoperative cardiovascular examination Z01.810 Atherosclerotic cardiovascular disease I25.10 Status post coronary artery bypass graft Z95.1 NSVT (nonsustained ventricular tachycardia) I47.2 Essential hypertension I10 Type 2 diabetes mellitus with unspecified complications E11.8
[2025-03-24 14:02] VITALS: BP 128/68; PULSE 62; BMI 24.1
--- OUTSIDE RECORDS SUMMARY | 2025-03-24 14:22 | XMS_ITS | Encounter Summary ---
Author Organization [employer] Address 75 [facility] 7t [place] [address] Care Team Providers Care Chain Maker Machine Name Role Phone Bobbi Ricks Primary Care Provider [phone] Jing Brooks PharmD Unavailable [phone] Reason for Visit * Reason Comments Med Refill Encounter Details Date Type Department Care Team ([facility] Contact Info) Description 10/30/2023 Refill [facility] CHC MED & PEDS [address] [place], [place] [phone] Bobbi Ricks ANP [address] [place] [address] Pain Social History Tobacco Use Types Packs/Day [...] Care Team (Late st Contact Info) Description 04/09/2025 1:30 PM EDT Office Visit [facility] MEDICINE [address] [place] [address] Bobbi Ricks ANP [address] [place] [address] 04/28/2025 10:00 AM EDT Medication Management [address] [address] Piers-Cerda, Jing, PharmD [address] [place] [address] documented as of this encounter Goals Goal Patient Goal Type Associated Problems Recent Progress Patient-Stated? Author Blood Pressure < 140/90 Blood Pressure 112/60(2024 10:19 AM EDT) No Piers-Gambl e, Jing, PharmD Hemoglobin A1c < 7 Result Component 7.8( 11:53 AM EDT) No Piers-Gambl e, Jing, PharmD documented as of this encounter Visit Diagnoses Diagnosis Pain Generalized pain documented in this encounter Additional Health Concerns Assessment Noted Time PHQ-9 Depression Total Score: 14 023 9:40 AM EDT documented as of this encounter Care Teams Chain Maker Machine Relationship Specialty Start Date End Date Bobbi Ricks ANP [address] [place] [address] PCP - General Family Medicine 03/08/21 Jing Brooks, Julia [address] [place] [address] Pharmacist Internal Medicine 03/24/24 [employer] 10/02/24 documented as of this encounter
--- OUTSIDE RECORDS SUMMARY | 2025-03-24 14:22 | XMS_ITS | Encounter Summary ---
Author Organization [employer] Address 75 [facility] 7t [place] [address] Care Team Providers Care Production Generalist Name Role Phone Bobbi Ricks Primary Care Provider [phone] Jing Brooks PharmD Unavailable [phone] Encounter Details Date Type Department Care Team (Late st Contact Info) Description 10/21/2023 Orders Only [facility] MEDICINE 230 [place], [place] [phone] Bobbi Ricks ANP 230 [place] [address] Social History Tobacco Use Types Packs/Day Years [...] Description 04/09/2025 1:30 PM EDT Office Visit [facility] MEDICINE [address] [place] [address] Bobbi Ricks ANP 230 [place] [address] 04/28/2025 10:00 AM EDT Medication Management [facility] MEDICINE [address] [place] [address] Jing Brooks, PharmD [address] [place] [address] documented as of this encounter Goals Goal Patient Goal Type Associated Problems Recent Progress Patient-Stated? Author Blood Pressure < 140/90 Blood Pressure 112/60(2024 10:19 AM EDT) No Jing [place] PharmD Hemoglobin A1c < 7 Result Component 7.8( 11:53 AM EDT) No Piers-Gambl e, Jing, PharmD documented as of this encounter Visit Diagnoses Not on filedocumented in this encounter Additional Health Concerns Assessment Noted Time PHQ-9 Depression Total Score: 14 023 9:40 AM EDT documented as of this encounter Care Teams Production Generalist Relationship Specialty Start Date End Date Bobbi Ricks ANP 230 [place] [address] PCP - General Family Medicine 03/08/21 Jing Brooks, PharmD 230 [place] [address] Pharmacist Internal Medicine 03/24/24 [employer] 10/02/24 documented as of this encounter
--- OUTSIDE RECORDS SUMMARY | 2025-03-24 14:22 | XMS_ITS | Encounter Summary ---
Author Organization [email or web address] Address 75 [facility] 7t [place] [address] Care Team Providers Care Quality Assurance Manager Name Role Phone Bobbi Ricks Primary Care Provider [phone] Jing Brooks PharmD Unavailable [phone]- [phone] Reason for Visit * Reason Comments Med Refill Encounter Details Date Type Department Care Team ([facility] Contact Info) Description 11/01/2023 Refill [facility] CHC MED & PEDS [address] [place], [place] [phone] Bobbi Ricks ANP 230 [facility] [place] [address] Pain Social History Tobacco Use Types Packs/Day [...] Description 04/09/2025 1:30 PM EDT Office Visit [facility] MEDICINE [address] [place] [address] Bobbi Ricks ANP [address] [place] [address] 04/28/2025 10:00 AM EDT Medication Management [address] [address] Piers-Cerda, Jing, PharmD [address] [place] [address] documented as of this encounter Goals Goal [...] documented as of this encounter Care Teams Quality Assurance Manager Relationship Specialty Start Date End Date Bobbi Ricks ANP [address] [place] [address] PCP - General Family Medicine 03/08/21 Jing Brooks, Julia [address] [place] [address] Pharmacist Internal Medicine 03/24/24 [employer] 10/02/24 documented as of this encounter
--- OUTSIDE RECORDS SUMMARY | 2025-03-24 14:22 | XMS_ITS | Encounter Summary ---
Author Organization [email or web address] Address 75 [facility] 7t [place] [address] Care Team Providers Care Process Lead Name Role Phone Bobbi Ricks Primary Care Provider [phone] Jing Brooks PharmD Unavailable [phone] Reason for Visit * Reason Comments Med Refill Encounter Details Date Type Department Care Team ([facility] st Contact Info) Description 11/12/2023 Refill [facility] MEDICINE 230 [place], [place] [phone] Bobbi Ricks ANP 230 [place] [address] Essential hypertension Social History Tobacco Use Types [...] Description 04/09/2025 1:30 PM EDT Office Visit [address] [address] Bobbi Ricks ANP [address] [place] [address] 04/28/2025 10:00 AM EDT Medication Management [address] [address] Piers-Alma Cerdasa, PharmD [address] [place] [address] documented as of this encounter Goals Goal [...] documented as of this encounter Care Teams Process Lead Relationship Specialty Start Date End Date Bobbi Ricks ANP [address] [place] [address] PCP - General Family Medicine 8/11/21 Jing Brooks, Julia [address] [place] [address] Pharmacist Internal Medicine 03/24/24 [employer] 10/02/24 documented as of this encounter
--- OUTSIDE RECORDS SUMMARY | 2025-03-24 14:23 | XMS_ITS | Encounter Summary ---
Author Organization [employer] Address 75 [facility] 7t [place] [address] Care Team Providers Care Push Bench Operator Helper Name Role Phone Bobbi Ricks ELAINA Primary Care Provider [phone] Jing Brooks PharmD Unavailable [phone] Reason for Visit * Reason Comments Med Refill Encounter Details Date Type Department Care Team ([facility] st Contact Info) Description 03/23/2025 Refill [facility] MEDICINE 230 [place], [place] [phone] Jing Brooks, PharmD 230 [place], [place] [phone] Type 2 diabetes mellitus with hyperlipidemia ([facility]/HCC) ([facility]) Social History Tobacco Use Types Packs/Day Years [...] your housing situation today? I have delbert sing 10/19/[address] you li [...] Description 04/09/2025 1:30 PM EDT Office Visit [facility] MEDICINE [address] [place] [address] Bobbi Ricks, ANP 230 [place] [address] 04/28/2025 10:00 AM EDT Medication Management [facility] MEDICINE [address] [place] [address] Jing Brooks, PharmD [address] [place] [address] documented as of this encounter Goals Goal Patient Goal Type Associated Problems Recent Progress Patient-Stated? Author Blood Pressure < 140/90 Blood Pressure 112/60(2024 10:19 AM EDT) No [place]iers[place], Jing, PharmD Hemoglobin A1c < 7 Result Component 7.8( 11:53 AM EDT) No Rishis-Tamirl Jing lugo, PharmD documented as of this encounter Visit Diagnoses Diagnosis Type 2 diabetes mellitus with hyperlipidemia (CMS/HCC) (CMS/HCC) documented in this encounter Additional Health Concerns Assessment Noted Time PHQ-9 Depression Total Score: 2 10/27/19 25 11:28 AM EDT documented as of this encounter Care Teams Push Bench Operator Helper Relationship Specialty Start Date End Date Bobbi Ricks ANP 230 [place] [address] PCP - General Family Medicine 03/08/21 Jing Brooks PharmD 230 [place] [address] Pharmacist Internal Medicine 03/24/24 [employer] 10/02/24 documented as of this encounter
--- OUTSIDE RECORDS SUMMARY | 2025-03-24 14:23 | XMS_ITS | Encounter Summary ---
Author Organization [employer] Address [address] [place] [address] 7t [place] [address] Care Team Providers Care Industrial Technology Teacher Name Role Phone Bobbi Ricks Primary Care Provider [phone] Jing Brooks PharmD Unavailable [phone] Encounter Details Date Type Department Care Team (Late st Contact Info) Description 12/21/2022 Orders Only [facility] CHC MED & PEDS [address] [place], [place] [phone] Ayse Barrientos LPN Social History Tobacco Use [...] Department Care Team (Late Contact Info) Description 04/09/2025 1:30 PM EDT Office Visit [facility] MEDICINE 230 [place] [address] Bobbi Ricks ANP 230 [place] [address] 04/28/2025 10:00 AM EDT Medication Management [facility] MEDICINE 230 [place] [address] Jing Brooks, Julia 230 [place] [address] documented as of this encounter Visit Diagnoses Not on filedocumented in this encounter Additional Health Concerns Assessment Noted Time PHQ-9 Depression Total Score: 14 023 9:40 AM EDT documented as of this encounter Care Teams Industrial Technology Teacher Relationship Specialty Start Date End Date Bobbi Ricks ANP [address] [place] [address] PCP - General Family Medicine 03/08/21 Jing Brooks PharmD [address] [place] [address] Pharmacist Internal Medicine 03/24/24 [employer] 10/02/24 documented as of this encounter
--- OUTSIDE RECORDS SUMMARY | 2025-03-24 14:23 | XMS_ITS | Continuity of Care Document ---
Author Name Chris Fierro Address [address] [place] [address] Organization Unknown Address [address] [place] [address] Medications No known medications Problems No known problems
--- OUTSIDE RECORDS SUMMARY | 2025-03-24 14:23 | XMS_ITS | Encounter Summary ---
Author Organization [employer] [facility] Address [address] [place] [address] 7t [place] [address] Care Team Providers Care Instrument Lens Grinder Name Role Phone Bobbi Ricks Primary Care Provider [phone] Jing Brooks PharmD Unavailable [phone] Reason for Visit * Reason Comments Med Refill Encounter Details Date Type Department Care Team (Late st Contact Info) Description 02/14/2023 Refill [facility] MEDICINE [address] [place] [address] Bobbi Ricks ANP 230 [place] [address] Hypertension associated with diabetes (CMS/[facility]) Social History Tobacco Use Types Packs/Day Years [...] Description 04/09/2025 1:30 PM EDT Office Visit [facility] MEDICINE [address] [place] [address] Bobbi Ricks ANP 230 [place] [address] 04/28/2025 10:00 AM EDT Medication Management [facility] MEDICINE 230 [place] [address] Jing Brooks PharmD 230 [place] [address] documented as of this encounter Visit Diagnoses Diagnosis Hypertension associated with diabetes (CMS/HCC) Unspecified essential hypertension documented in this encounter Additional Health Concerns Assessment Noted Time PHQ-9 Depression Total Score: 14 023 9:40 AM EDT documented as of this encounter Care Teams Instrument Lens Grinder Relationship Specialty Start Date End Date Bobbi Ricks ANP [address] [place] [address] PCP - General Family Medicine 03/08/21 Jing Brooks PharmD [address] [place] [address] Pharmacist Internal Medicine 03/24/24 [employer] 10/02/24 documented as of this encounter
--- OUTSIDE RECORDS SUMMARY | 2025-03-24 14:23 | XMS_ITS | Encounter Summary ---
Author Organization [employer] Address 75 [facility] 7t [place] [address] Care Team Providers Care Verification Engineer Name Role Phone Bobbi Ricks ANP Primary Care Provider [phone] Jing Brooks PharmD Unavailable [phone] Reason for Visit * Reason Comments Med Refill Encounter Details Date Type Department Care Team ([facility] st Contact Info) Description 03/24/2025 Refill [facility] 230 [place], [place] [phone] Bobbi Ricks ANP 230 [place] [address] Low back pain at multiple sites Social History Tobacco Use Types Packs/Day Years [...] Description 04/09/2025 1:30 PM EDT Office Visit [facility] MEDICINE [address] [place] [address] Bobbi Ricks ANP [address] [place] [address] 04/28/2025 10:00 AM EDT Medication Management [address] [address] Piers-Cerda, Jing, PharmD [address] [place] [address] documented as of this encounter Goals Goal Patient Goal Type Associated Problems Recent Progress Patient-Stated? Author Blood Pressure < 140/90 Blood Pressure 112/60(2024 10:19 AM EDT) No Piers-Gambl e, Jing, PharmD Hemoglobin A1c < 7 Result Component 7.8( 11:53 AM EDT) No Piers-Gambl e, Jing, PharmD documented as of this encounter Visit Diagnoses Diagnosis Low back pain at multiple sites documented in this encounter Additional Health Concerns Assessment Noted Time PHQ-9 Depression Total Score: 2 10/27/19 25 11:28 AM EDT documented as of this encounter Care Teams Verification Engineer Relationship Specialty Start Date End Date Bobbi Ricks ANP 230 [place] [address] PCP - General Family Medicine 03/08/21 Jing Brooks PharmD 230 [place] [address] Pharmacist Internal Medicine 03/24/24 [employer] 10/02/24 documented as of this encounter
--- OUTSIDE RECORDS SUMMARY | 2025-03-24 14:23 | XMS_ITS | Encounter Summary ---
Author Organization Company [facility] Address [address] [place] [address] 7t [place] [address] Care Team Providers Care Aerial Photographer Name Role Phone Bobbi Ricks Primary Care Provider [phone] Jnig Brooks PharmD Unavailable [phone] Encounter Details Date Type Department Care Team (Late Contact Info) Description 03/18/2023 Orders Only [address] [address] Vj Tolbert [address] [place] [phone] Social History Tobacco Use Types Packs/Day Years [...] 1:30 PM EDT Office Visit [facility] MED[facility] [address] [place] [phone] Bobbi Ricks ANP [address] [place] [address] 04/28/2025 10:00 AM EDT Medication Management [facility] [address] [place] [address] Jing Brooks PharmD [address] [place] [address] documented as of this encounter Visit Diagnoses Not on filedocumented in this encounter Additional Health Concerns Assessment Noted Time PHQ-9 Depression Total Score: 14 023 9:40 AM EDT documented as of this encounter Care Teams Aerial Photographer Relationship Specialty Start Date End Date Bobbi Ricks ANP [address] [place] [address] PCP - General Family Medicine 03/08/21 Jing Brooks, Julia [address] [place] [address] Pharmacist Internal Medicine 03/24/24 [employer] 10/02/24 documented as of this encounter
--- OUTSIDE RECORDS SUMMARY | 2025-03-24 14:23 | XMS_ITS | Clinical Summary ---
Author Organization [facility] Address [address] [facility] [address] [place] [address] Phone Care Team Providers Care Golf Instructor Name Role Phone Bobbi Ricks NP Primary Care Provider Allergies Active Allergy Reactions Criticality Noted Date [...] patient's age to complete this topic Insurance [facility] ([id number]) IRIS MEJIAS [id number] [facility] ([id number]) IRIS MEJIAS [id number] Care Teams Golf Instructor Relationship Specialty Start Date End Date Bobbi Ricks NP PCP - General Nurse Practitioner 07/04/23
--- OUTSIDE RECORDS SUMMARY | 2025-03-24 14:23 | XMS_ITS | Encounter Summary ---
Author Organization [employer] Address [address] [facility] 7t [place] [address] Care Team Providers Care Net C Developer Name Role Phone Bobbi Ricks Primary Care Provider [phone] Jing Brooks PharmD Unavailable [phone] Reason for Visit * Reason Onset Date Comments Appointment Request 10/29/2022 Encounter Details Date Type Department Care Team ([facility] st Contact Info) Description 10/29/2022 Telephone [facility] [address] [place] [address] Bobbi Ricks ANP [address] [place] [address] Appointment Request Social History Tobacco Use Types [...] AM EDT Tc zulma Alexander with [facility] requesting an appt with provider. Pulp Drier tried booking but provider has nothing available at this time. Please contact pt at [phone] Hungarian Speaker documented in this encounter Plan of Treatment Upcoming Encounters Date Type Department Care Team (Late st Contact Info) Description 04/09/2025 1:30 PM EDT Office Visit [address] [address] Bobbi Ricks ANP [address] [place] [address] 04/28/2025 10:00 AM EDT Medication Management [address] [address] Jing Brooks PharmD [address] [place] [address] documented as of this encounter Visit Diagnoses Not on filedocumented in this encounter Care Teams Net C Developer Relationship Specialty Start Date End Date Bobbi Ricks ANP [address] [place] [id number] PCP - General Family Medicine 03/08/21 Jing Brooks PharmD [address] [place] [address] Pharmacist Internal Medicine 03/24/24 [employer] 10/02/24 documented as of this encounter
--- OUTSIDE RECORDS SUMMARY | 2025-03-24 14:23 | XMS_ITS | Encounter Summary ---
Author Organization [employer] Address [address] [facility] 7t [place] [address] Care Team Providers Care License Registration Examiner Name Role Phone Bobbi Ricks Primary Care Provider [phone] Jing Brooks PharmD Unavailable [phone] Reason for Visit * Reason Comments Med Refill Encounter Details Date Type Department Care Team ([facility] Contact Info) Description 06/23/2024 Refill [facility] & PEDS [address] [place], [place] [phone] Bobbi Ricks ANP [address] [facility] [place] [address] Mixed hyperlipidemia Social History Tobacco Use Types [...] Description 04/09/2025 1:30 PM EDT Office Visit [facility] MEDICINE [address] [place] [address] Bobbi Ricks ANP [address] [place] [phone] 04/28/2025 10:00 AM EDT Medication Management [facility] MED[facility]INE [address] [place] [phone] Piers-Alma Cerdasa, PharmD [address] [place] [phone] documented as of this encounter Goals Goal [...] documented as of this encounter Care Teams License Registration Examiner Relationship Specialty Start Date End Date Bobbi Ricks ANP [address] [place] [phone] PCP - General Family Medicine 03/08/21 Jing Brooks, Julia [address] [place] [phone] Pharmacist Internal Medicine 03/24/24 [employer] 10/02/24 documented as of this encounter
--- OUTSIDE RECORDS SUMMARY | 2025-03-24 14:23 | XMS_ITS | Encounter Summary ---
Author Organization [employer] Address [address] [facility] 7t [place] [address] Care Team Providers Care Methods Analyst Name Role Phone Bobbi Ricks Primary Care Provider [phone] Jing Brooks PharmD Unavailable [phone] Encounter Details Date Type Department Care Team (Late st Contact Info) Description 08/14/2022 Orders Only [facility] MED & PEDS [address] [place], [place] [phone] Ayse Barrientos LPN Social History Tobacco Use [...] Description 04/09/2025 1:30 PM EDT Office Visit [facility] MEDICINE [address] [place] [address] Bobbi Ricks ANP 230 [place] [address] 04/28/2025 10:00 AM EDT Medication Management [facility] MED[facility]INE 230 [place] [address] Jing Brooks, PharmD 230 [place] [address] documented as of this encounter Visit Diagnoses Not on filedocumented in this encounter Care Teams Methods Analyst Relationship Specialty Start Date End Date Bobbi Ricks ANP [address] [place] [address] PCP - General Family Medicine 03/08/21 Jing Brooks PharmD [address] [place] [address] Pharmacist Internal Medicine 03/24/24 [employer] 10/02/24 documented as of this encounter
--- OUTSIDE RECORDS SUMMARY | 2025-03-24 14:23 | XMS_ITS | Encounter Summary ---
Author Organization [employer] Address [address] [facility] 7t [place] [address] Care Team Providers Care Keyboard Instrument Repairer Name Role Phone Bobbi Ricks Primary Care Provider [phone] Jing Brooks PharmD Unavailable [phone] Encounter Details Date Type Department Care Team (Latest Contact Info) Description 03/23/2025 Travel Social History Tobacco Use Types Packs/Day [...] Description 04/09/2025 1:30 PM EDT Office Visit [facility] MEDICINE [address] [place] [address] Bobbi Ricks ANP [address] [place] [address] 04/28/2025 10:00 AM EDT Medication Management [facility] MEDICINE [address] [place] [address] Rishis-Alma Cerdasa, PharmD [address] [place] [address] documented as of this encounter Goals Goal [...] documented as of this encounter Care Teams Keyboard Instrument Repairer Relationship Specialty Start Date End Date Bobbi Ricks ANP [address] [place] [address] PCP - General Family Medicine 03/08/21 Piers-Cerda, Jing, PharmD [address] [place] [address] Pharmacist Internal Medicine 03/24/24 [employer] (P) 10/02/24 documented as of this encounter
--- OUTSIDE RECORDS SUMMARY | 2025-03-24 14:23 | XMS_ITS | Clinical Summary ---
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 recovered HAV infection. ~Hepatitis B Surface Antibody REACTIVE Nonreactive [facility] Comment:REACTIVE: > 11.99 mI U/mL Hepatitis B Core Antibody Reactive Nonreactive [facility] Comment:Presumptive evidence of anti-HBc. Hepatitis C Antibody Nonreactive Nonreactive [facility] Comment:Antibodies to HCV no t detected; does not exclude early acuteHCV infection. Hepatitis B Surface Ag Negative Negative [facility] Blood Venous blood specimen / Unknown 03/18/2024 11:25 AM EDT 03/18/2024 1:09 PM EDT Aliyah Gilliam ANP LAB BLOOD ORDERABLES Final Resul t Performing Organization Address [facility] Co de Phone Number [facility] [address] [place] [address] [phone] from Last 3 Months or Most Recently Relevant to Health Maintenance Insurance [address] [place] [address] [facility] [employer] OPTIONS (HMO D-SNP) DENTAL [facility] Care Teams Customer Project Manager Relationship Specialty Start Date End Date Aliyah Gilliam ANP [address] [place] [address] PCP - General Family Medicine 03/08/21 Jing Brooks, JasminD [address] [place] [address] 26219 Pharmacist Internal Medicine 03/24/24 [employer] 10/02/24
--- OUTSIDE RECORDS SUMMARY | 2025-03-24 14:23 | XMS_ITS | Encounter Summary ---
Author Organization [employer] Address 75 [facility] 7t [place] [address] Care Team Providers Care Acid Regenerator Name Role Phone Bobbi Ricks Primary Care Provider [phone] Jing Brooks PharmD Unavailable [phone] Reason for Visit * Reason Onset Date Comments Hospital Follow-up 11/29/2023 Encounter Details Date Type Department Care Team ([facility] st Contact Info) Description 11/29/2023 Telephone [facility] [address] [place] [address] Bobbi Ricks ANP [address] [place] [address] Hospital Follow-up Social History Tobacco Use Types [...] a HDF f/u after recent admission to [facility] for MT on 11/26/23. Pt is stable [...] from pt requesting a HDF appt. Hospital: [facility] Date of admission: 11/25 Discharge date: 11/28 Diagnosed: Acute kidney injury documented in this encounter Plan of Treatment Upcoming Encounters Date Type Department Care Team (Late st Contact Info) Description 04/09/2025 1:30 PM EDT Office Visit [facility] [address] [place] [address] Bobbi Ricks ANP [address] [place] [address] 04/28/2025 10:00 AM EDT Medication Management [facility] [address] [place] [address] Jing Brooks PharmD [address] [place] [address] documented as of this encounter Goals Goal Patient Goal Type Associated Problems Recent Progress Patient-Stated? Author Blood Pressure < 140/90 Blood Pressure 112/60(2024 10:19 AM EDT) No Jing Smith PharmD Hemoglobin A1c < 7 Result Component 7.8( 11:53 AM EDT) No Jing Smith PharmD documented as of this encounter Visit Diagnoses Not on filedocumented in this encounter Additional Health Concerns Assessment Noted Time PHQ-9 Depression Total Score: 14 023 9:40 AM EDT documented as of this encounter Care Teams Acid Regenerator Relationship Specialty Start Date End Date Bobbi Ricks ANP [address] [place] [address] PCP - General Family Medicine 03/08/21 Jing Brooks PharmD [address] [place] [address] Pharmacist Internal Medicine 03/24/24 [employer] 10/02/24 documented as of this encounter
--- OUTSIDE RECORDS SUMMARY | 2025-03-24 14:23 | XMS_ITS | Encounter Summary ---
Author Organization [employer] Address 75 [facility] 7t [place] [address] Care Team Providers Care Expressive Art Therapist Name Role Phone Bobbi Ricks Primary Care Provider [phone] Jing Brooks PharmD Unavailable [phone]- [phone] Encounter Details Date Type Department Care Team (Late Contact Info) Description 10/02/2022 Orders Only [facility] MED & PEDS [address] [place], [place] [phone] Ayse Barrientos LPN Social History Tobacco Use [...] Upcoming Encounters Date Type Department Care Team ([facility] Contact Info) Description 04/09/2025 1:30 PM EDT Office Visit [facility] [address] [place], [place] [phone] Bobbi Ricks ANP [address] [place] [address] 04/28/2025 10:00 AM EDT Medication Management [facility] [address] [place] [address] Jing Brooks PharmD [address] [place] [address] documented as of this encounter Visit Diagnoses Not on filedocumented in this encounter Care Teams Expressive Art Therapist Relationship Specialty Start Date End Date Bobbi Ricks ANP [address] [place] [address] PCP - General Family Medicine 03/08/21 Jing Brooks PharmD [address] [place] [address] Pharmacist Internal Medicine 03/24/24 [employer] 10/02/24 documented as of this encounter
== END 2025-03-24 14:21 | disposition home or self-care (01) ==
LOC: HO.HCS 13:37
PROVIDERS: PCP Nurse Practitioner Primary Care; Visit Provider Internal Medicine
DX: Z01.810 Encounter for preprocedural cardiovascular examination (principal); I25.10 Atherosclerotic heart disease of native coronary artery without angina pectoris; Z95.1 Presence of aortocoronary bypass graft; I47.20 Ventricular tachycardia, unspecified; I10 Essential (primary) hypertension; E11.8 Type 2 diabetes mellitus with unspecified complications
CPT/HCPCS: 99214; G2211

== ENCOUNTER → 2025-03-24 13:36 | Outpatient (BNVA) | payer OTHER, SELFPAY | PROVIDERS: PCP Nurse Practitioner Primary Care; Visit Provider Internal Medicine | DX: Z01.810 Encounter for preprocedural cardiovascular examination (principal); I25.10 Atherosclerotic heart disease of native coronary artery without angina pectoris; Z95.1 Presence of aortocoronary bypass graft; I47.20 Ventricular tachycardia, unspecified | CPT/HCPCS: 99212 ==

== ENCOUNTER 2025-03-25 13:43 | Outpatient (AMB) | payer OTHER, SELFPAY ==
--- NOTE | 2025-03-25 13:56 | MHC.OFFVIS ---
Vital Signs 03/25/25 13:57 Height 5 ft 11 in Weight 175 lb BMI 24.4 BP 128/62 Blood Pressure Location Rt brachial Position Sitting Pulse 68 Intake Visit Reasons: Discuss surgery Intake Note: Patient here to discuss perianal cyst surgery. Cleared by cardio Dr. García. Patient c/o: would like to have surgery as soon as possible. Deputy Probation Officer Required: Yes Information Interpreted: clinical only (Allie #[id number]) Accompanied by: Self / Same As Patient Allergies amlodipine Adverse Reaction (Unknown, Verified 03/25/25 14:02) leg edema HPI HPI Discuss surgery: Details: 69-year-old male referred for a recurrent area of swelling and drainage in the perianal region. He says that he has had this for over a year now. He would notice swelling on the left side of his perianal area and some drainage on and off. Review of his records shows that he was admitted for an abscess of the left perianal area were a year ago. An I&D was done at that time. He states that this area has not really healed completely. He describes pain and swelling periodically and persistent drainage I saw him in October,. 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 I had scheduled him for exam under anesthesia and possible seton placement, or fistulotomy but he needed cardiology evaluation because of a recent stenting for right coronary arterial occlusion. He has been cleared by his extrusion machine operator for the surgery. He says he is ready to proceed with the planned surgery as he continues to have the same problems as before. [facility] Medical History Perianal infection Acquired hypothyroidism Dyslipidemia NSVT (nonsustained ventricular tachycardia) Atherosclerotic cardiovascular disease Coronary artery arteriosclerosis Essential hypertension Type 2 diabetes mellitus with diabetic polyneuropathy Surgical History History of colon resection Hx of colonoscopy History of cardiac catheterization Family History Father No problems noted. Mother No problems noted. Social History Household Members: None Housing: Condominium Do you presently have visiting nurse or other home services: No Alcohol intake: current Alcohol intake frequency: holidays/special occasions only Comment: pt refused camera in room, states unable to sleep with light from equipment Patient Tobacco Use Status: Never used Tobacco Second Hand Smoke Exposure: No Advance Directives Date on File: 10/03/20 service: No Review of Systems Const Denies chills and Denies fever(s) Card Denies chest pain, Denies dyspnea and Denies dyspnea on exertion Resp Denies cough, Denies dyspnea and Denies dyspnea on exertion GI Denies hematochezia and Denies change in bowel habits Denies hematuria and Denies difficulty urinating Musc Denies back pain and Denies limited range of motion Neuro Denies focal weakness and Denies convulsions Psych Denies depression and Denies mood swings Physical Exam Vital Signs: Last Vital Signs Pulse 68 03/25/25 13:57 BP 128/62 03/25/25 13:57 BMI result Body Mass Index 24.4 Const General: comfortable and no acute distress Orientation/consciousness: patient oriented x3 Neck Neck: Yes no lymphadenopathy Resp Auscultation: clear to auscultation bilaterally Cardio Rhythm: regular rhythm GI Other: Rectal exam shows 2 sinuses in the left perianal area, about 3 cm from the verge, with some scanty drainage, no obvious induration or fluctuance Palpation (GI): Soft to palpation, nontender and no guarding Neuro General: patient oriented x3 Assessment & Plan Assessment & Plan (1) Perianal infection: Code(s): K62.89 - Other specified diseases of anus and rectum Category: Medical Plan: He has persistent sinuses with drainage on the left perianal area as described above. These appeared to be consistent with a an anal fistula. Anoscopy does not show an obvious internal opening I reviewed with the technique of exam under anesthesia, possible excision of perianal cysts, possible fistulotomy, possible seton placement the risks including but not limited to bleeding and infections as well as the benefits and alternatives. I told him that if he has a seton placed, he will have this for several months and we will tightened this in the office periodically. He will therefore need to be seen in the office regularly He says he understands and has agreed to proceed He will be scheduled for this in the operating room. He is on Jardiance so this will be held for a week prior to the surgery. Coding Level of Care Code Est Pt Level 3 (22207) Diagnoses Perianal infection K62.89
[2025-03-25 13:57] VITALS: BP 128/62; PULSE 68; BMI 24.4
--- OUTSIDE RECORDS SUMMARY | 2025-03-25 14:25 | XMS_ITS | Encounter Summary ---
Author Organization [employer] Address 75 [facility] 7t [place] [address] Care Team Providers Care Cut Plug Packer Name Role Phone Bobbi Ricks Primary Care Provider [phone] Jing Brooks PharmD Unavailable [phone]- [phone] Reason for Visit * Reason Comments Med Refill Encounter Details Date Type Department Care Team ([facility] Contact Info) Description 10/30/2023 Refill [facility] & PEDS [address] [place], [place] [phone] Bobbi Ricks ANP [address] [facility] [place] [address] Pain Social History Tobacco Use Types Packs/Day [...] Description 04/09/2025 1:30 PM EDT Office Visit [facility] [address] [place] [address] Bobbi Ricks ANP [address] [place] [address] 04/28/2025 10:00 AM EDT Medication Management [address] [address] Piers-Cerda, Jing, PharmD [address] [place] [address] documented as of this encounter Goals Goal [...] documented as of this encounter Care Teams Cut Plug Packer Relationship Specialty Start Date End Date Bobbi Ricks ANP [address] [place] [address] PCP - General Family Medicine 03/08/21 Jing Brooks, Julia [address] [place] [address] Pharmacist Internal Medicine 03/24/24 [email or web address] 10/02/24 documented as of this encounter
--- OUTSIDE RECORDS SUMMARY | 2025-03-25 14:25 | XMS_ITS | Encounter Summary ---
Author Organization [employer] Address 75 [facility] 7t [place] [address] Care Team Providers Care Pharmaceutical Detailer Name Role Phone Bobbi Ricks Primary Care Provider [phone] Jing Brooks PharmD Unavailable [phone] Encounter Details Date Type Department Care Team (Late st Contact Info) Description 10/21/2023 Orders Only [facility] [address] [place], [place] [phone] Bobbi Ricks ANP [address] [place] [address] Social History Tobacco Use Types Packs/Day Years [...] Description 04/09/2025 1:30 PM EDT Office Visit [facility] [address] [place] [address] Bobbi Ricks ANP [address] [place] [address] 04/28/2025 10:00 AM EDT Medication Management [facility] [address] [place] [address] Jing Brooks, PharmD [address] [place] [address] documented as of this encounter Goals Goal [...] documented as of this encounter Care Teams Pharmaceutical Detailer Relationship Specialty Start Date End Date Bobbi Ricks ANP [address] [place] [address] PCP - General Family Medicine 03/08/21 Jing Brooks, PharmD [address] [place] [address] Pharmacist Internal Medicine 03/24/24 [employer] 10/02/24 documented as of this encounter
--- OUTSIDE RECORDS SUMMARY | 2025-03-25 14:25 | XMS_ITS | Encounter Summary ---
Author Organization [employer] Address 75 [facility] 7t [place] [address] Care Team Providers Care Quality Tech Name Role Phone Bobbi Ricks Primary Care Provider [phone] Jing Brooks PharmD Unavailable [phone]- [phone] Reason for Visit * Reason Comments Med Refill Encounter Details Date Type Department Care Team ([facility] Contact Info) Description 11/01/2023 Refill [facility] MED & PEDS [address] [place], [place] [phone] Bobbi Ricks ANP [address] [facility] [place] [address] Pain Social History Tobacco Use Types Packs/Day [...] Description 04/09/2025 1:30 PM EDT Office Visit [facility] [address] [place] [address] Bobbi Ricks ANP [address] [place] [address] 04/28/2025 10:00 AM EDT Medication Management [address] [address] Piers-Cerda, Jing, PharmD [address] [place] [address] documented as of this encounter Goals Goal [...] as of this encounter Care Teams Quality Tech Relationship Specialty Start Date End Date Bobbi Ricks ANP [address] [place] [address] PCP - General Family Medicine 03/08/21 Jing Brooks, Julia [address] [place] [address] Pharmacist Internal Medicine 03/24/24 [employer] 10/02/24 documented as of this encounter
--- OUTSIDE RECORDS SUMMARY | 2025-03-25 14:25 | XMS_ITS | Encounter Summary ---
Author Organization [employer] Address 75 [facility] 7t [place] [address] Care Team Providers Care Staff Engineer Name Role Phone Bobbi Ricks Primary Care Provider [phone] Jing Brooks PharmD Unavailable [phone] Reason for Visit * Reason Comments Med Refill Encounter Details Date Type Department Care Team ([facility] st Contact Info) Description 11/12/2023 Refill [facility] [address] [place], [place] [phone] Bobbi Ricks ANP [address] [place] [address] Essential hypertension Social History Tobacco Use Types [...] Description 04/09/2025 1:30 PM EDT Office Visit [address] [address] Bobbi Ricks ANP [address] [place] [address] 04/28/2025 10:00 AM EDT Medication Management [address] [address] Piers-Alma Cerdasa, PharmD [address] [place] [address] documented as of this encounter Goals Goal [...] documented as of this encounter Care Teams Staff Engineer Relationship Specialty Start Date End Date Bobbi Ricks ANP [address] [place] [address] PCP - General Family Medicine 8/11/21 Jing Brooks, Julia [address] [place] [address] Pharmacist Internal Medicine 03/24/24 [employer] 10/02/24 documented as of this encounter
--- OUTSIDE RECORDS SUMMARY | 2025-03-25 14:25 | XMS_ITS | Encounter Summary ---
Author Organization [employer] Address 75 [facility] 7t [place] [address] Care Team Providers Care Operations Manager Assistant Name Role Phone Bobbi Ricks Primary Care Provider [phone] Jing Brooks PharmD Unavailable [phone]- [phone] Reason for Visit * Reason Comments Med Refill Encounter Details Date Type Department Care Team ([facility] st Contact Info) Description 03/24/[address] [facility] [address] [place], [place] [phone] Bobbi Ricks ANP [address] [place] [address] Type 2 diabetes mellitus with hyperlipidemia (CMS/HCC) (CMS/HCC); Dry skin; Low back pain at multiple sites Social [...] Description 04/09/2025 1:30 PM EDT Office Visit [facility] [address] [place] [address] Bobbi Ricks ANP [address] [place] [address] 04/28/2025 10:00 AM EDT Medication Management [facility] [address] [place] [address] Jing Brooks, PharmD [address] [place] [address] documented as of this encounter Goals Goal Patient Goal Type Associated Problems Recent Progress Patient-Stated? Author Blood Pressure < 140/90 Blood Pressure 112/60(2024 10:19 AM EDT) No Rishis-Shelley lugo, Jing, PharmD Hemoglobin A1c < 7 Result Component 7.8( 11:53 AM EDT) No Rishis-Tamirl Jing lugo, PharmD documented as of this encounter Visit Diagnoses Diagnosis Type 2 diabetes mellitus with hyperlipidemia (CMS/HCC) (CMS/[facility]) Dry skin Other symptoms involving skin and integumentary tissues Low back pain at multiple sites documented in this encounter Additional Health Concerns Assessment Noted Time PHQ-9 Depression Total Score: 2 10/27/19 25 11:28 AM EDT documented as of this encounter Care Teams Operations Manager Assistant Relationship Specialty Start Date End Date Bobbi Ricks ANP [address] [place] [address] PCP - General Family Medicine 03/08/21 Jing Brooks PharmD [address] [place] [address] Pharmacist Internal Medicine 03/24/24 [employer] 10/02/24 documented as of this encounter
--- OUTSIDE RECORDS SUMMARY | 2025-03-25 14:26 | XMS_ITS | Encounter Summary ---
Author Organization [employer] Address 75 [facility] 7t [place] [address] Care Team Providers Care Staff Scientist Name Role Phone Bobbi Ricks Primary Care Provider [phone] Jing Brooks PharmD Unavailable [phone] Encounter Details Date Type Department Care Team (Late st Contact Info) Description 08/14/2022 Orders Only [facility] MED & PEDS [address] [place], [place] [phone] Ayse Barrientos LPN Social History Tobacco Use [...] EDT Office Visit [facility] [address] [place] [address] Bobbi Ricks ANP [address] [place] [address] 04/28/2025 10:00 AM EDT Medication Management [facility] [address] [place] [address] Jing Brooks, PharmD [address] [place] [address] documented as of this encounter Visit Diagnoses Not on filedocumented in this encounter Care Teams Staff Scientist Relationship Specialty Start Date End Date Bobbi Ricks ANP [address] [place] [address] PCP - General Family Medicine 03/08/21 Jing Brooks PharmD [address] [place] [address] Pharmacist Internal Medicine 03/24/24 [employer] 10/02/24 documented as of this encounter
--- OUTSIDE RECORDS SUMMARY | 2025-03-25 14:26 | XMS_ITS | Encounter Summary ---
Author Organization [employer] [facility] Address [address] [place] [address] 7t [place] [address] Care Team Providers Care Adjunct Physics Instructor Name Role Phone Bobbi Ricks Primary Care Provider [phone] Jing Brooks PharmD Unavailable [phone] Reason for Visit * Reason Comments Med Refill Encounter Details Date Type Department Care Team (Late st Contact Info) Description 02/14/2023 Refill [facility] [address] [place] [address] Bobbi Ricks ANP [address] [place] [address] Hypertension associated with diabetes (CMS/[facility]) Social History Tobacco Use Types Packs/Day [...] Description 04/09/2025 1:30 PM EDT Office Visit [facility] [address] [place] [address] Bobbi Ricks ANP [address] [place] [address] 04/28/2025 10:00 AM EDT Medication Management [facility] [address] [place] [address] Jing Brooks PharmD [address] [place] [address] documented as of this encounter Visit Diagnoses Diagnosis Hypertension associated with diabetes (CMS/HCC) Unspecified essential hypertension documented in this encounter Additional Health Concerns Assessment Noted Time PHQ-9 Depression Total Score: 14 023 9:40 AM EDT documented as of this encounter Care Teams Adjunct Physics Instructor Relationship Specialty Start Date End Date Bobbi Ricks ANP [address] [place] [address] PCP - General Family Medicine 03/08/21 Jing Brooks PharmD [address] [place] [address] Pharmacist Internal Medicine 03/24/24 [employer] 10/02/24 documented as of this encounter
--- OUTSIDE RECORDS SUMMARY | 2025-03-25 14:26 | XMS_ITS | Encounter Summary ---
Author Organization [employer] Address [address] [place] [address] 7t [place] [address] Care Team Providers Care Financial Counselor Name Role Phone Bobbi Ricks Primary Care Provider [phone] Jing Brooks PharmD Unavailable [phone]- [phone] Encounter Details Date Type Department Care Team (Late st Contact Info) Description 12/21/2022 Orders Only [facility] MED & PEDS [address] [place], [place] [phone] Ayse Barrientos LPN Social History Tobacco Use [...] Description 04/09/2025 1:30 PM EDT Office Visit [facility] [address] [place], [place] [phone] Bobbi Ricks ANP [address] [place] [address] 04/28/2025 10:00 AM EDT Medication Management [facility] [address] [place] [address] Jing Brooks, Julia [address] [place] [address] documented as of this encounter Visit Diagnoses Not on filedocumented in this encounter Additional Health Concerns Assessment Noted Time PHQ-9 Depression Total Score: 14 023 9:40 AM EDT documented as of this encounter Care Teams Financial Counselor Relationship Specialty Start Date End Date Bobbi Ricks ANP [address] [place] [address] PCP - General Family Medicine 03/08/21 Jing Brooks PharmD [address] [place] [address] Pharmacist Internal Medicine 03/24/24 [employer] 10/02/24 documented as of this encounter
--- OUTSIDE RECORDS SUMMARY | 2025-03-25 14:26 | XMS_ITS | Encounter Summary ---
Author Organization [employer] Address [address] [facility] 7t [place] [address] Care Team Providers Care Key Person Name Role Phone Bobbi Ricks Primary Care Provider [phone] Jing Brooks PharmD Unavailable [phone] Encounter Details Date Type Department Care Team [...] Description 04/09/2025 1:30 PM EDT Office Visit [facility] [address] [place] [phone] Bobbi Ricks ANP [address] [place] [address] 04/28/2025 10:00 AM EDT Medication Management [facility] [address] [place] [address] Rishis-Alma Cerdasa, PharmD [address] [place] [address] documented as of this encounter Goals Goal [...] documented as of this encounter Care Teams Key Person Relationship Specialty Start Date End Date Bobbi Ricks ANP [address] [place] [address] PCP - General Family Medicine 03/08/21 Piers-Cerda, Jing, PharmD [address] [place] [address] Pharmacist Internal Medicine 03/24/24 [employer] [facility] 10/02/24 documented as of this encounter
--- OUTSIDE RECORDS SUMMARY | 2025-03-25 14:26 | XMS_ITS | Encounter Summary ---
Author Organization [employer] Address [address] [facility] 7t [place] [address] Care Team Providers Care Card Decorator Name Role Phone Bobbi Ricks ELAINA Primary Care Provider [phone] Jing Brooks PharmD Unavailable [phone] Reason for Visit * Reason Comments Med Refill Encounter Details Date Type Department Care Team ([facility] st Contact Info) Description 03/23/2025 Refill [facility] [address] [place], [place] [phone] Jing Brooks, PharmD [address] [place], [place] [phone] Type 2 diabetes mellitus with hyperlipidemia ([facility]/HCC) ([facility]) Social History Tobacco Use Types Packs/Day Years [...] Description 04/09/2025 1:30 PM EDT Office Visit [facility] [address] [place] [phone] Bobbi Ricks, ANP [address] [place] [address] 04/28/2025 10:00 AM EDT Medication Management [facility] [address] [place] [address] Jing Brooks, PharmD [address] [place] [address] documented as of this encounter Goals Goal [...] documented as of this encounter Care Teams Card Decorator Relationship Specialty Start Date End Date Bobbi Ricks ANP [address] [place] [address] PCP - General Family Medicine 03/08/21 Jing rBooks PharmD [address] [place] [address] Pharmacist Internal Medicine 03/24/24 [employer] 10/02/24 documented as of this encounter
--- OUTSIDE RECORDS SUMMARY | 2025-03-25 14:26 | XMS_ITS | Encounter Summary ---
Author Organization [employer] Address [address] [facility] 7t [place] [address] Care Team Providers Care Hemming And Tacking Machine Operator Name Role Phone Bobbi Ricks Primary Care Provider [phone] Jing Brooks PharmD Unavailable [phone] Encounter Details Date Type Department Care Team (Late Contact Info) Description 10/02/2022 Orders Only [facility] [address] [place], [place] [phone] Ayse Barrientos LPN Social History Tobacco Use [...] Upcoming Encounters Date Type Department Care Team ([facility] Contact Info) Description 04/09/2025 1:30 PM EDT Office Visit [facility] [address] [place], [place] [phone] Bobbi Ricks ANP [address] [place] [address] 04/28/2025 10:00 AM EDT Medication Management [facility] [address] [place] [address] Jing Brooks PharmD [address] [place] [address] documented as of this encounter Visit Diagnoses Not on filedocumented in this encounter Care Teams Hemming And Tacking Machine Operator Relationship Specialty Start Date End Date Bobbi Ricks ANP [address] [place] [phone] PCP - General Family Medicine 03/08/21 Jing Brooks PharmD [address] [place] [phone] Pharmacist Internal Medicine 03/24/24 [email or web address] 10/02/24 documented as of this encounter
--- OUTSIDE RECORDS SUMMARY | 2025-03-25 14:26 | XMS_ITS | Clinical Summary ---
Author Organization [facility] Address [address] [facility] [address] [place] [address] Phone Care Team Providers Care Gas Pumper Name Role Phone Bobbi Ricks NP Primary [...] patient's age to complete this topic Insurance [facility] ([id number]) IRIS MEJIAS [id number] [facility] ([id number]) IRIS MEJIAS [id number] Care Teams Gas Pumper Relationship Specialty Start Date End Date Bobbi Ricks NP PCP - General Nurse Practitioner 07/04/23
--- OUTSIDE RECORDS SUMMARY | 2025-03-25 14:26 | XMS_ITS | Encounter Summary ---
Author Organization [employer] Address [address] [facility] 7t [place] [address] Care Team Providers Care Custom Bow Maker Name Role Phone Bobbi Ricks ANP Primary Care Provider [phone] Jing Brooks PharmD Unavailable [phone] Reason for Visit * Reason Comments Med Refill Encounter Details Date Type Department Care Team ([facility] st Contact Info) Description 03/24/2025 Refill [facility] [address] [place], [place] [phone] Bobbi Ricks ANP [address] [place] [address] Low back pain at multiple sites Social [...] Description 04/09/2025 1:30 PM EDT Office Visit [facility] [address] [place] [phone] Bobbi Ricks ANP [address] [place] [address] 04/28/2025 10:00 AM EDT Medication Management [address] [address] Piers-Cerda, Jing, PharmD [address] [place] [address] documented as of this encounter Goals Goal [...] documented as of this encounter Care Teams Custom Bow Maker Relationship Specialty Start Date End Date Bobbi Ricks ANP [address] [place] [address] PCP - General Family Medicine 03/08/21 Jing Brooks PharmD [address] [place] [address] Pharmacist Internal Medicine 03/24/24 [employer] 10/02/24 documented as of this encounter
--- OUTSIDE RECORDS SUMMARY | 2025-03-25 14:26 | XMS_ITS | Encounter Summary ---
Author Organization [employer] Address [address] [facility] 7t [place] [address] Care Team Providers Care Avionics Systems Technician Name Role Phone Bobbi Ricks Primary Care Provider [phone] Jing Brooks PharmD Unavailable [phone] Reason for Visit * Reason Comments Med Refill Encounter Details Date Type Department Care Team ([facility] Contact Info) Description 06/23/2024 Refill [facility] [address] [place], [place] [phone] Bobbi Ricks ANP [address] [facility] [place] [address] Mixed hyperlipidemia Social History Tobacco Use Types [...] Description 04/09/2025 1:30 PM EDT Office Visit [facility] [address] [place] [address] Bobbi Ricks ANP [address] [place] [address] 04/28/2025 10:00 AM EDT Medication Management [facility] [address] [place] [address] Piers-Alma Cerdasa, PharmD [address] [place] [address] documented as of this encounter Goals Goal [...] documented as of this encounter Care Teams Avionics Systems Technician Relationship Specialty Start Date End Date Bobbi Ricks ANP [address] [place] [phone] PCP - General Family Medicine 03/08/21 Jing Brooks, Julia [address] [place] [address] Pharmacist Internal Medicine 03/24/24 [email or web address] 10/02/24 documented as of this encounter
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
--- OUTSIDE RECORDS SUMMARY | 2025-03-25 14:26 | XMS_ITS | Encounter Summary ---
Author Organization [employer] Address [address] [facility] [address] [place] [address] Care Team Providers Care Transportation Analyst Name Role Phone Bobbi Ricks Primary Care Provider [phone] Jing Brooks PharmD Unavailable [phone] Reason for Visit * Reason Onset Date Comments Hospital Follow-up 11/29/2023 Encounter Details Date Type Department Care Team ([facility] st Contact Info) Description 11/29/2023 Telephone [facility] [address] [place] [address] Bobbi Ricks ANP [address] [place] [address] Hospital Follow-up Social History Tobacco Use Types [...] a HDF f/u after recent admission to [facility] [place] on 11/26/23. Pt is stable [...] from pt requesting a HDF appt. Hospital: [facility] Date of admission: 11/25 Discharge date: 11/28 Diagnosed: Acute kidney injury documented in this encounter Plan of Treatment Upcoming Encounters Date Type Department Care Team (Late st Contact Info) Description 04/09/2025 1:30 PM EDT Office Visit [facility] [address] [place] [phone] Bobbi Ricks ANP [address] [place] [address] 04/28/2025 10:00 AM EDT Medication Management [facility] [address] [place] [address] Jing Brooks PharmD [address] [place] [address] documented as of this encounter Goals Goal [...] documented as of this encounter Care Teams Transportation Analyst Relationship Specialty Start Date End Date Bobbi Ricks ANP [address] [place] [phone] PCP - General Family Medicine 03/08/21 Jing Brooks PharmD [address] [place] [address] Pharmacist Internal Medicine 03/24/24 [employer] 10/02/24 documented as of this encounter
--- OUTSIDE RECORDS SUMMARY | 2025-03-25 14:26 | XMS_ITS | Encounter Summary ---
Author Organization [employer] Address [address] [facility] [address] [place] [address] Care Team Providers Care Retail Product Advisor Name Role Phone Bobbi Ricks Primary Care Provider [phone] Jing Brooks PharmD Unavailable [phone] Reason for Visit * Reason Onset Date Comments Appointment Request 10/29/2022 Encounter Details Date Type Department Care Team ([facility] st Contact Info) Description 10/29/2022 Telephone [facility] [address] [place] [address] Bobbi Ricks ANP [address] [place] [address] Appointment Request Social History Tobacco Use Types [...] AM EDT Tc zulma Alexander with [facility] requesting an appt with provider. Donor Technician tried booking but provider has nothing available at this time. Please contact pt at [phone] [employer] Speaker documented in this encounter Plan of Treatment Upcoming Encounters Date Type Department Care Team (Late st Contact Info) Description 04/09/2025 1:30 PM EDT Office Visit [address] [address] Bobbi Ricks ANP [address] [place] [address] 04/28/2025 10:00 AM EDT Medication Management [address] [address] Jing Brooks PharmD [address] [place] [phone] documented as of this encounter Visit Diagnoses Not on filedocumented in this encounter Care Teams Retail Product Advisor Relationship Specialty Start Date End Date Bobbi Ricks ANP [address] [place] [phone] PCP - General Family Medicine 03/08/21 Jing Brooks PharmD [address] [place] [address] Pharmacist Internal Medicine 03/24/24 [employer] 10/02/24 documented as of this encounter
--- OUTSIDE RECORDS SUMMARY | 2025-03-25 14:26 | XMS_ITS | Encounter Summary ---
Author Organization [facility] Address [address] [place] [address] 7t [place] [address] Care Team Providers Care Set Illustrator Name Role Phone Bobbi Ricks Primary Care Provider [phone] Jing Brooks PharmD Unavailable [phone] Encounter Details Date Type Department Care Team (Late Contact Info) Description 03/18/2023 Orders Only [address] [address] Vj Tolbert [address] [place] [address] Social History Tobacco Use Types Packs/Day Years [...] 04/09/2025 1:30 PM EDT Office Visit [facility] [address] [place] [address] Bobbi Ricks ANP [address] [place] [address] 04/28/2025 10:00 AM EDT Medication Management [facility] [address] [place] [address] Jing Brooks PharmD [address] [place] [address] documented as of this encounter Visit Diagnoses Not on filedocumented in this encounter Additional Health Concerns Assessment Noted Time PHQ-9 Depression Total Score: 14 023 9:40 AM EDT documented as of this encounter Care Teams Set Illustrator Relationship Specialty Start Date End Date Bobbi Ricks ANP [address] [place] [address] PCP - General Family Medicine 03/08/21 Jing Brooks, Julia [address] [place] [phone] Pharmacist Internal Medicine 03/24/24 CCM [facility]mark 10/02/24 documented as of this encounter
== END 2025-03-25 14:27 | disposition home or self-care (01) ==
LOC: HO.HGS 13:43
PROVIDERS: PCP Nurse Practitioner Primary Care; Visit Provider Surgery
DX: K62.89 Other specified diseases of anus and rectum (principal)
CPT/HCPCS: 99213

== ENCOUNTER → 2025-03-25 13:43 | Outpatient (BNVA) | payer OTHER, SELFPAY | PROVIDERS: PCP Nurse Practitioner Primary Care; Visit Provider Surgery | DX: Z01.818 Encounter for other preprocedural examination (principal); K62.89 Other specified diseases of anus and rectum | CPT/HCPCS: 99212 ==

== ENCOUNTER 2025-04-20 07:15 | Day surgery (SDC) | payer OTHER, SELFPAY ==
--- OUTSIDE RECORDS SUMMARY | 2025-04-08 11:15 | XMS_ITS | Encounter Summary ---
Author Organization [facility] Address [address] [place] [address] 7t [place] [address] Care Team Providers Care Fur Cutting Machine Operator Name Role Phone Bobbi Ricks Primary Care Provider [phone] Jing Brooks PharmD Unavailable [phone] Reason for Visit * Reason Comments Med Refill Encounter Details Date Type Department Care Team (Late st Contact Info) Description 02/14/2023 Refill [facility] MEDICINE [address] [place] [address] Bobbi Ricks ANP [address] [place] [address] Hypertension associated with diabetes (CMS/[facility]) Social History Tobacco Use Types [...] Description 04/09/2025 1:30 PM EDT Office Visit [facility] MEDICINE [address] [place] [address] Bobbi Ricks ANP [address] [place] [address] 04/28/2025 10:00 AM EDT Medication Management [facility]ICINE [address] [place] [address] Jing Brooks PharmD [address] [place] [address] documented as of this encounter Visit Diagnoses Diagnosis Hypertension associated with diabetes (CMS/HCC) Unspecified essential hypertension documented in this encounter Additional Health Concerns Assessment Noted Time PHQ-9 Depression Total Score: 14 023 9:40 AM EDT documented as of this encounter Care Teams Fur Cutting Machine Operator Relationship Specialty Start Date End Date Bobbi Ricks ANP [address] [place] [address] PCP - General Family Medicine 03/08/21 Jing Brooks PharmD [address] [place] [address] Pharmacist Internal Medicine 03/24/24 [employer] 10/02/24 documented as of this encounter
--- OUTSIDE RECORDS SUMMARY | 2025-04-08 11:15 | XMS_ITS | Encounter Summary ---
Author Organization [employer] Address [address] [facility] 7t [place] [address] Care Team Providers Care Admissions Manager Name Role Phone Bobbi Ricks Primary Care Provider [phone] Jing Brooks PharmD Unavailable [phone] Encounter Details Date Type Department Care Team (Late st Contact Info) Description 04/05/2025 Refill [facility]INE [address] [place] [address] Bobbi Ricks ANP [address] [place] [address] Essential hypertension Social History Tobacco Use Types [...] Description 04/09/2025 1:30 PM EDT Office Visit [facility] MEDICINE [address] [place] [address] Bobbi Ricks ANP [address] [place] [address] 04/28/2025 10:00 AM EDT Medication Management [facility] MEDICINE [address] [place] [address] Rishis-Jing Cerda, PharmD [address] [place] [address] documented as of this encounter Goals Goal [...] documented as of this encounter Care Teams Admissions Manager Relationship Specialty Start Date End Date Bobbi Ricks ANP 230 [place] [address] PCP - General Family Medicine 03/08/21 Jing Brooks, JasminD [address] [place] [address] Pharmacist Internal Medicine 03/24/24 [employer] 10/02/24 documented as of this encounter
--- OUTSIDE RECORDS SUMMARY | 2025-04-08 11:15 | XMS_ITS | Clinical Summary ---
Author Organization [employer] Address [address] [place] [address] 7t [place] [address] Care Team Providers Care Cryptanalyst Name Role Phone Aliyah Gilliam ELAINA Primary Care Provider [phone] Jing Brooks PharmD Unavailable [phone] Allergies Active Allergy Reactions Criticality Noted Date [...] 18 g 025 2025 Active Continuous Glucose Kiln Burner (FreeStyle Yanni 3 Nunica) deviceIndication s:Type 2 diabetes mellitus with hyperlipidemia (CMS/HCC) ([facility]) 1 each Use as directed. 1 each Active Continuous Glucose Sensor (FreeStyle Yanni 3 Plus Sensor) miscIndications: Type 2 diabetes mellitus with hyperlipidemia (CMS/HCC) ([facility]) 1 each Use as directed. 2 each Active glucose blood (FreeStyle Precision Kameron Test) test stripIndications :Type 2 diabetes mellitus with hyperlipidemia (CMS/HCC) ([facility]) Test blood sugar 3 times daily 100 each 025 2025 Active BD Pen Needle Montse U/F 32G X 4 MM misc USE DIRECTED WITH INSULIN ONCE DAILY Active Alcohol Swabs (Alcohol Prep) 70 % padsIndications: Type 2 diabetes mellitus with hyperlipidemia (CMS/HCC) ([facility]) Use as directed up to twice daily 100 each Active glucose (Glutose) 40 % gel oral gelIndications:T ype 2 diabetes mellitus with hyperlipidemia (CMS/HCC) ([facility]) Take 15 g by mouth if [...] cations:Type 2 diabetes mellitus with hyperlipidemia (CMS/HCC) ([facility]) Inject 1 mg under the skin 1 (one) time per week. 3 mL 3 025 Active TRUEplus Lancets 33G miscIndications: Type 2 diabetes mellitus with hyperlipidemia (CMS/HCC) ([facility]) TEST BLOOD SUGAR THREE TIMES DAILY 100 each 025 Active insulin degludec (Tresiba FlexTouch) 100 UNIT/ML injectionIndicat ions:Type 2 diabetes mellitus with hyperlipidemia (CMS/HCC) ([facility]) Inject subcutaneously 12 units once daily; if needed for further FBG control in three days may increase to 14 units once daily 025 Active gabapentin (Neurontin) 300 MG capsuleIndicatio [...] pe 2 diabetes mellitus with hyperlipidemia (CMS/HCC) ([facility]),Hypert ensive renal disease TAKE 1 TABLET BY MOUTH EVERY MORNING 90 tablet 3 025 Active ammonium lactate (Lac-Hydrin) 12 % lotionIndication s:Type 2 diabetes mellitus with hyperlipidemia (CMS/HCC) ([facility]),Dry skin APPLY TOPICALLY TO AFFECTED AREA(S) DAILY NEEDED FOR DRY SKIN 225 g 11 025 Active Menthol-Methyl Salicylate (Muscle Rub) 10-15 % creamIndications :Low back pain at multiple sites APPLY 2 GRAMS TOPICALLY TO AFFECTED AREA(S) TWICE DAILY NEEDED FOR PAIN BACK 85 g 1 025 Active lisinopril 10 MG tabletIndication s:Essential hypertension Take 1 tablet (10 mg) by mouth Once per day. 90 tablet 025 Active ammonium lactate (Amlactin Daily) 12 % lotionIndication s:Type 2 diabetes mellitus with hyperlipidemia ([facility]) ([facility]),Dry skin Apply topically if needed for dry skin. 225 g 11 024 2024 Discontinued lisinopril 10 MG tabletIndication s:Essential hypertension Take 1 tablet (10 mg) by mouth Once per day. 90 tablet 025 2024 Discontinued(R eorder (will not trigger notification to Pharmacy)) Menthol-Methyl Salicylate (Muscle Rub) 10-15 % creamIndications [...] 01/26/2024 Acute kidney injury superimposed on CKD (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.BMarrero1/02/2013 - PPD performed 05/16/2012 and it was [...] Encounters Date Type Department Care Team Description 04/08/2025 Telephone [facility] [address] [place], [place] [phone] Aliyah Gliliam ANP 04/05/2025 Refill [facility] [address] [place] [address] Aliyah Gilliam ANP Essential hypertension 04/05/2025 Telephone [facility] [address] [place], [place] [phone] Aliyah Gilliam ANP 04/02/2025 Patient Outreach [facility] [address] [place] [address] Aliyah Gilliam ANP Pre-visit Planning ([facility] screening was completed on 10/19/2024) 03/24/2025 Refill [facility] [address] [place] [address] Aliyah Gilliam ANP Type 2 diabetes mellitus with hyperlipidemia (CMS/HCC) (CMS/HCC); Dry skin; Low back pain at multiple sites 03/24/2025 Refill [facility] [address] [place] [address] Aliyah Gilliam ANP Low back pain at multiple sites 03/23/2025 Travel 03/23/2025 Refill [facility] [address] [place] [address] Jing Brooks PharmD Type 2 diabetes mellitus with hyperlipidemia (CMS/HCC) (CMS/HCC) 03/02/2025 Refill [facility] [address] [place] [address] Jing Brooks PharmD Type 2 diabetes mellitus with hyperlipidemia (CMS/HCC) (CMS/HCC); Hypertensive renal disease 02/26/2025 Orders Only [facility] External Provider, [facility] 02/22/2025 Orders Only GENERIC EXTERNAL DATA DEPARTMENT Provider, Generic External Data 02/22/2025 Refill [facility] [address] [place] [address] Aliyah Gilliam ANP Essential hypertension 02/17/2025 Travel 02/15/2025 Refill [facility] [address] [place] [address] Aliyah Gilliam ANP Pain 02/04/2025 Orders Only [facility] [address] [place] [address] José Manuel Vee MD Type 2 diabetes mellitus with hyperlipidemia (CMS/HCC) (CMS/HCC) (Primary Dx) 01/27/2025 Telephone [facility] [address] [place] [address] Aliyah Gilliam ANP Pre-op 01/21/2025 Telephone [facility] [address] [place] [address] Aliyah Gilliam ANP CHART PREP 01/13/2025 Results Follow-Up [facility] [address] [place] [address] Aliyah Gilliam ANP Basic Metabolic Panel 01/13/2025 Orders Only [facility] [address] [place] [address] Aliyah Gilliam ANP 01/13/2025 Telephone [facility] [address] [place] [address] Jing Brooks, Julia 01/13/2025 Telephone [facility] [address] [place] [address] Demetra Varela, supervisor toy parts former 01/11/2025 1:40 PM EDT Office Visit [facility] [address] [place] [address] Aliyah Gilliam ANP Degeneration of intervertebral disc of lumbar region with discogenic back pain (Primary Dx); Low back pain at multiple sites; Urinary frequency; Benign prostatic hyperplasia without urinary obstruction; Numbness of left foot; Neuropathic pain, leg, left; Peripheral axonal neuropathy 01/11/2025 Travel 01/08/2025 Travel from Last 3 Months Immunizations Immunization Administration [...] your housing situation today? I have delbert yesica 10/19/[address] you li [...] Description 04/09/2025 1:30 PM EDT Office Visit [facility] [address] [place] [address] Aliyah Gilliam, ANP [address] [place] [address] 04/28/2025 10:00 AM EDT Medication Management [facility] [address] [place] [address] Jing Brooks, PharmD [address] [place] [address] Health Maintenance Due Date Last Done Comments CT Colonography 1955 Colonoscopy 1955 Colorectal Cancer Screening 1955 Dental Prophylaxis 1955 Dental X-Ray: Bitewings 1955 FIT DNA/Cologuard 1955 FIT 1955 FOBT 1955 Sigmoidoscopy 1955 Dental Oral Exam 09/13/2024 03/12/2024, 03/19/2023 Diabetes: Foot Exam 11/25/2024 11/26/2023, 11/26/2023, 11/26/2023 COVID-19 Vaccine ( season) 2025 01/02/2022, 05/24/2021, 11/22/2020, Additional history exists Influenza Vaccine (#1) 2025 , 04/24/2023, 05/01/2022, [...] Blood Pressure 112/60(2024 10:19 AM EDT) No Rihsis-Gambl eJing, PharmD Hemoglobin A1c < 7 Result Component [...] 2 diabetes mellitus with hyperlipidemia (CMS/HCC) (CMS/HCC) ALBUMIN, RANDOM URINE W/CREATININE Routine 09/23/2024 [...] PM EDT Narrative 02/26/2025 2:18 PM EDT [address] [address] Ultrasound Report Signed Patient: Steve Caceres MR#: [id number] 724 : 1955 Acct:[id number] Age/Sex: 69 / M ADM Date: 02/26/25 Loc: .US Attending Dr: Frederic Harris MD Ordering Physician: Frederic Harris MD Date of Service: 02/26/25 Procedure(s): US renal BI Accession Number(s): [id number] cc: Frederic Harris MD; ALIYAH GILLIAM NP [...] 02/26/25 1415 DD/ 135 TD/TT: 02/26/25 135 Food Consultant: Procedure Note Donotuseinterpreter, Image - 02/26/[address] [address] Ultrasound Report Signed Patient: Patel Caceres#: [id number] 724 : 5Acct:[id number] Age/Sex: 69 / MADM Date: 02/26/25 Loc: HO.US Attending Dr: Frederic Harris MD Ordering Physician: Frederic Harris MD Date of Service: 02/26/25 Procedure(s): US renal BI Accession Number(s): [id number] cc: Frederic Harris MD; ALIYAH GILLIAM NP [...] 02/26/25 1415 DD/ 135 TD/TT: 02/26/25 135 Food Consultant: us [facility] External Provider IMG US PROCEDURES Final Result * Prothrombin Time-INR (02/22/2025 8:38 AM EDT) Pathologist [facility] Prothrombin Time 11.4 10.9 - 12.4 SEC [facility] INTERNATIONAL NORM RATIO 1.0 0.9 - 1.1 [facility] Comment:INTERNATIONAL NORMAL IZED RATIO (INR) REFERENCE [...] ORDERAB LES Final Result Performing Organization Address City/State/[facility] Co de Phone Number [facility] [address] [place] [phone] * (ABNORMAL) CBC (02/22/2025 8:38 AM EDT) Pathologist [facility] White Blood Count 4.0(L) 4.8 - 10.8 X10*3/uL [facility] Red Blood Count 4.91 4.60 - 5.80 X10*6/uL [facility] Hemoglobin 17.0 14.0 - 18.0 g/dl [facility] Hematocrit 48.1 42.0 - 52.0 % [facility] Mean Corpuscular Volume 98.0 80.0 - 98.0 fL [facility] Mean Corpuscular Hemoglobin 34.6(H) 27.0 - 33.0 pg [facility] Mean Corpuscular HGB Conc 35.3 31.0 - 36.0 g/dl [facility] Red Cell Distribution Width 13.7 11.0 - 16.0 % [facility] Platelet Count 160 160 - 400 X10*3/uL [facility] Mean Platelet Volume 8.7(L) 9.4 - 12.4 fL [facility] NRBC Pct Auto 0.0 0.0 - 0.2 /100WBC [facility] NRBC Abs Auto 0.000 0.0 - 0.012 X10*3/uL [facility] 02/22/2025 8:38 AM EDT 02/22/2025 8:38 AM EDT us Generic External Data Provider LAB BLOOD ORDERAB LES Final Result Performing Organization Address City/[facility]/ZIP Co de Phone Number [facility] [address] [place] [phone] * (ABNORMAL) Basic Metabolic Panel (02/22/2025 8:38 AM EDT) Only the most recent of2 resultswithin the time period is included. Sodium 145 135 - 145 mmol/L [facility] Potassium 3.7 3.3 - 5.1 mmol/L [facility] Chloride 110(H) 96 - 108 mmol/L [facility] Carbon Dioxide 28 22 - 29 mmol/L [facility] Anion Gap 11(L) 12 - 20 [facility] Urea Nitrogen (BUN) 13 9 - 16 mg/dL [facility] Creatinine, Serum 1.21 0.5 - 1.4 mg/dL [facility] Estimated Glomerular Filt Rate 59 [facility] Comment:Chronic Kidney Disea se: Estimated GFR < 60 mL/min/1.99a5Tlcyad Kidney Disease: Estimated GFR < 15 mL/min/1.73m2 Glucose 108 60 - 115 mg/dL [facility] Calcium 9.0 8.4 - 10.2 mg/dL [facility] 02/22/2025 8:38 AM EDT 02/22/2025 8:38 AM EDT us Generic External Data Provider LAB BLOOD ORDERAB LES Final Result Performing Organization Address City/[facility]/ZIP Co de Phone Number [facility] [address] [place] [phone] [phone] * Stress test with myocardial perfusion (01/28/2025 9:10 AM EDT) 01/28/2025 9:10 AM EDT Narrative [facility] - 02/01/2025 3:17 PM EDT [address] [address] Nuclear Medicine Report Signed Patient: Steve Caceres MR#: [id number] 724 : 1955 Acct:[id number] Age/Sex: 69 / M ADM Date: 01/28/25 Loc: .MIRANDA Attending Dr: Lacho García MD Ordering Physician: Lacho García MD Date of Service: 01/28/25 Procedure(s): NM cardiolite stress test Accession Number(s): [id number] cc: ALIYAH GILLIAM STAINED GLASS JOINER; Lacho García MD Lexiscan Myocardial perfusion study [...] 02/01/25 1514 DD/ 0910 TD/TT: 02/01/25 1315 Food Consultant: Procedure Note Donotuseinterpreter, Image - 02/01/2025 [place] [address] Nuclear Medicine Report Signed Patient: Patel Caceres#: [id number] 724 : 5Acct:[id number] Age/Sex: 69 / MADM Date: 01/28/25 Loc: [facility] Attending Dr: Lacho García MD Ordering Physician: Lacho García MD Date of Service: 01/28/25 Procedure(s): NM cardiolite stress test Accession Number(s): [id number] cc: ALIYAH GILLIAM STAINED GLASS JOINER; Lacho García MD Lexiscan Myocardial perfusion study [...] 02/01/25 1514 DD/ 0910 TD/TT: 02/01/25 1315 Food Consultant: us [facility] External Provider CV STRE SS PROCEDURES Final Result [facility] [address] [place] [phone] * POCT urinalysis dipstick manually resulted [...] Urine 01/11/2025 2:12 PM EDT us Aliyah Gilliam ANP POINT OF CARE TEST ENTER/EDIT OR DERABLES Final Result * (ABNORMAL) POCT A1C (01/08/2025 11:53 AM EDT) Hemoglobin A1C 7.8(A) 4.0 - 6.0 % QC Media Lot # [id number] Lot# Expiration Date Blood 01/08/2025 11:5 3 AM EDT us Aliyah Gilliam ANP POINT OF CARE TEST ENTER/EDIT OR DERABLES Edited Result - Final * (ABNORMAL) Albumin, Random Urine W/Creatinine (09/23/2024 2:58 PM EST) Creatinine, Urine 33.43 mg/dL [facility] Microalbumin Urine 14.0 mg/L [facility] Microalbum Creatinine Ratio Ur 41.8(H) <30 ug/mg cr [facility] Comment:Albumin/Creatinine R atio Reference Ranges: Normal: < 30 ug/mg creatinine Microalbuminuria: 30 - 300 ug/mg creatinineClinical Albuminuria: > 300 ug/mg creatinine 09/23/2024 2:58 PM EST 09/23/2024 4:20 PM EST us Aliyah Gilliam ANP LAB URINE ORDERABLES Final Resul t [facility] [address] [place] [phone] * (ABNORMAL) Lipid Panel, Standard (06/09/2024 9:05 AM EST) Triglycerides 126 <150 mg/dL [facility] Comment:Desirable Triglyceri de: less than 150 mg/dLBorderline High Triglyceride 150-199 mg/dLHigh Triglyceride: 200-499 mg/dLVery High Triglyceride: greater than or equal to 5OO mg/dL Cholesterol 104 <200 mg/dL [facility] Comment:Desirable Cholestero l: less than 200 mg/dLBorderline High Cholesterol: 200-239 mg/dLHigh Cholesterol: greater than 239 mg/dL LDL Cholesterol Calculated 42 <100 mg/dL [facility] Comment:Desirable LDL: less than 100 mg/dLNear Optimal/Above Optimal LDL: 110- 129 mg/dLBorderline High LDL: 130-159 mg/dLHigh LDL: 160-189 mg/dLVery High LDL: greater than or equal to 190 mg/dL HDL Cholesterol 37(L) >40 mg/dL [facility] Comment:Desirable HDL: great er than 40 mg/dL Note: This HDL assay may give artificially low results in patients with liver disease. 06/09/2024 9:05 AM EST 06/09/2024 11:22 AM EST [facility] LAB BLOOD ORDERABLES Final Resul t [facility] [address] [place] [phone] * Hepatitis A,B,C Profile (03/18/2024 11:25 AM EDT) Hepatitis A IgM Nonreactive Nonreactive [facility] Comment:IgM antibodies to STEPHENS V not detected; does not exclude earlyacute or recovered HAV infection. ~Hepatitis B Surface Antibody REACTIVE Nonreactive [facility] Comment:REACTIVE: > 11.99 mI U/mL Hepatitis B Core Antibody Reactive Nonreactive [facility] Comment:Presumptive evidence of anti-HBc. Hepatitis C Antibody Nonreactive Nonreactive [facility] Comment:Antibodies to HCV no t detected; does not exclude early acuteHCV infection. Hepatitis B Surface Ag Negative Negative [facility] Blood Venous blood specimen / Unknown 03/18/2024 11:25 AM EDT 03/18/2024 1:09 PM EDT Aliyah DELANEY LAB BLOOD ORDERABLES Final Resul t [facility] [address] [place] [address] [phone] from Last 3 Months or Most Recently Relevant to Health Maintenance Insurance [address] [place] [id number] [facility] USP OPTIONS (HMO D-SNP) [address] [place] [phone] [facility] [address] [place] [address] [address] [place] [address] Care Teams Cryptanalyst Relationship Specialty Start Date End Date Aliyah Gilliam ANP [address] [place] [address] PCP - General Family Medicine 03/08/21 Jing Brooks PharmD [address] [place] [address] Pharmacist Internal Medicine 03/24/24 [employer] 10/02/24
--- OUTSIDE RECORDS SUMMARY | 2025-04-08 11:15 | XMS_ITS | Encounter Summary ---
Author Organization [employer] Address [address] [facility] 7t [place] [address] Care Team Providers Care Poleyard Supervisor Name Role Phone Bobbi Ricks Primary Care Provider [phone] Jing Brooks PharmD Unavailable [phone] Reason for Visit * Reason Comments Med Refill Encounter Details Date Type Department Care Team ([facility] Contact Info) Description 10/30/2023 Refill [facility] [address] [place], [place] [phone] Bobbi Ricks ANP [address] [facility] [place] [address] Pain Social History Tobacco Use Types Packs/Day [...] Description 04/09/2025 1:30 PM EDT Office Visit [facility] [address] [place] [phone] Bobbi Ricks ANP [address] [place] [address] 04/28/2025 10:00 AM EDT Medication Management [address] [address] Piers-Cerda, Jing, PharmD [address] [place] [phone] documented as of this encounter Goals Goal [...] documented as of this encounter Care Teams Poleyard Supervisor Relationship Specialty Start Date End Date Bobbi Ricks ANP [address] [place] [address] PCP - General Family Medicine 03/08/21 Jing Brooks, Julia [address] [place] [address] Pharmacist Internal Medicine 03/24/24 JIT [employer] 10/02/24 documented as of this encounter
--- OUTSIDE RECORDS SUMMARY | 2025-04-08 11:15 | XMS_ITS | Encounter Summary ---
Author Organization [employer] Address 75 [facility] 7t [place] [address] Care Team Providers Care Billboard Mechanic Name Role Phone Bobbi Ricks Primary Care Provider [phone] Jing Brooks PharmD Unavailable [phone] Encounter Details Date Type Department Care Team (Late st Contact Info) Description 10/21/2023 Orders Only [facility] MED[facility]INE [address] [place], [place] [phone] Bobbi Ricks ANP [address] [place] [address] Social History Tobacco Use Types Packs/Day Years [...] Description 04/09/2025 1:30 PM EDT Office Visit [facility] [address] [place] [address] Bobbi Ricks ANP [address] [place] [address] 04/28/2025 10:00 AM EDT Medication Management [facility] [address] [place] [address] Jing Brooks, PharmD [address] [place] [address] documented as of this encounter Goals Goal [...] documented as of this encounter Care Teams Billboard Mechanic Relationship Specialty Start Date End Date Bobbi Ricks ANP [address] [place] [address] PCP - General Family Medicine 03/08/21 Jing Brooks, PharmD [address] [place] [address] Pharmacist Internal Medicine 03/24/24 [employer] 10/02/24 documented as of this encounter
--- OUTSIDE RECORDS SUMMARY | 2025-04-08 11:15 | XMS_ITS | Clinical Summary ---
Author Organization [facility] Address [address] [facility] 20 0 [place] [address] Phone Care Team Providers Care Vessel Slagman Name Role Phone Bobbi Ricks NP Primary Care Provider [phone] Allergies Active Allergy Reactions Criticality Noted Date [...] patient's age to complete this topic Insurance [facility] ([id number]) IRIS MEJIAS [id number] [facility] ([id number]) IRIS MEJIAS [phone] Care Teams Vessel Slagman Relationship Specialty Start Date End Date Bobbi Ricks NP PCP - General Nurse Practitioner 07/04/23
--- OUTSIDE RECORDS SUMMARY | 2025-04-08 11:15 | XMS_ITS | Encounter Summary ---
Author Organization [employer] Address 75 [facility] 7t [place] [address] Care Team Providers Care Fibrous Plasterer Name Role Phone Bobbi Ricks Primary Care Provider [phone] Jing Brooks PharmD Unavailable [phone]- [phone] Reason for Visit * Reason Comments Med Refill Encounter Details Date Type Department Care Team ([facility] Contact Info) Description 11/01/2023 Refill [facility] MED & PEDS [address] [place], [place] [phone] Bobbi Ricks ANP 230 [facility] [place] [address] Pain Social History Tobacco Use Types Packs/Day [...] PM EDT Office Visit [facility] MEDICINE [address] [place] [address] Bobbi Ricks ANP [address] [place] [address] 04/28/2025 10:00 AM EDT Medication Management [address] [address] Piers-Cerda, Jing, PharmD [address] [place] [address] documented as of this encounter Goals Goal [...] documented as of this encounter Care Teams Fibrous Plasterer Relationship Specialty Start Date End Date Bobbi Ricks ANP [address] [place] [address] PCP - General Family Medicine 03/08/21 Jing Brooks, Julia [address] [place] [address] Pharmacist Internal Medicine 03/24/24 [employer] 10/02/24 documented as of this encounter
--- OUTSIDE RECORDS SUMMARY | 2025-04-08 11:15 | XMS_ITS | Encounter Summary ---
Author Organization [employer] Address 75 [facility] 7t [place] [address] Care Team Providers Care Computer Information Systems Instructor Name Role Phone Bobbi Ricks Primary Care Provider [phone] Jing Brooks PharmD Unavailable [phone] Reason for Visit * Reason Comments Med Refill Encounter Details Date Type Department Care Team ([facility] st Contact Info) Description 11/12/2023 Refill [facility] MEDICINE 230 [place], [place] [phone] Bobbi Ricks ANP 230 [place] [address] Essential hypertension Social History Tobacco Use Types [...] Description 04/09/2025 1:30 PM EDT Office Visit [address] [address] Bobbi Ricks ANP [address] [place] [address] 04/28/2025 10:00 AM EDT Medication Management [address] [address] Piers-Alma Cerdasa, PharmD [address] [place] [address] documented as of this encounter Goals Goal [...] documented as of this encounter Care Teams Computer Information Systems Instructor Relationship Specialty Start Date End Date Bobbi Ricks ANP [address] [place] [address] PCP - General Family Medicine 8/11/21 Jing Brooks, Julia [address] [place] [address] Pharmacist Internal Medicine 03/24/24 [employer] 10/02/24 documented as of this encounter
--- OUTSIDE RECORDS SUMMARY | 2025-04-08 11:15 | XMS_ITS | Encounter Summary ---
Author Organization [employer] Address 75 [facility] 7t [place] [address] Care Team Providers Care Draw Hand Name Role Phone Bobbi Ricks Primary Care Provider [phone] Jing Brooks PharmD Unavailable [phone] Encounter Details Date Type Department Care Team (Late st Contact Info) Description 04/08/2025 Telephone [facility] MEDICINE [address] [place] [address] Bobbi Ricks ANP 230 [place] [address] Social History Tobacco Use Types Packs/Day Years [...] encounter Miscellaneous Notes * Telephone Encounter - Akira Martin [place] - 04/08/2025 9:25 AM EDT Chart Prep Labs: done Images: not done Referrals: not applicable Vaccines due: Covid and Flu Screenings: colonoscopy and foot exam Overdue care gaps: A1c and Glucose documented in this encounter Plan of Treatment Upcoming Encounters Date Type Department Care Team (Late st Contact Info) Description 04/09/2025 1:30 PM EDT Office Visit [facility] MEDICINE [address] [place] [address] Bobbi Ricks ANP [address] [place] [address] 04/28/2025 10:00 AM EDT Medication Management [facility] MED[facility] [address] [place] [address] Jing Brooks PharmD [address] [place] [address] documented as of this encounter Goals Goal Patient Goal Type Associated Problems Recent Progress Patient-Stated? Author Blood Pressure < 140/90 Blood Pressure 112/60(2024 10:19 AM EDT) No Piers-Gambl e, Jing, PharmD Hemoglobin A1c < 7 Result Component 7.8( 5 11:53 AM EDT) No Jing Smith PharmD documented as of this encounter Visit Diagnoses Not on filedocumented in this encounter Additional Health Concerns Assessment Noted Time PHQ-9 Depression Total Score: 2 10/27/19 25 11:28 AM EDT documented as of this encounter Care Teams Draw Hand Relationship Specialty Start Date End Date Bobbi Ricks ANP 230 [place] [address] PCP - General Family Medicine 03/08/21 Jing Brooks, Julia 230 [place] [address] Pharmacist Internal Medicine 03/24/24 [employer] 10/02/24 documented as of this encounter
--- OUTSIDE RECORDS SUMMARY | 2025-04-08 11:15 | XMS_ITS | Encounter Summary ---
Author Organization [employer] [facility] Address [address] [place] [address] 7t [place] [address] Care Team Providers Care Market Consultant Name Role Phone Bobbi Ricks Primary Care Provider [phone] Jing Brooks PharmD Unavailable [phone] Encounter Details Date Type Department Care Team (Late Contact Info) Description 03/18/2023 Orders Only [address] [address] Vj Tolbert [address] [place] [address] Social History Tobacco Use Types Packs/Day Years [...] Description 04/09/2025 1:30 PM EDT Office Visit [facility] MEDICINE [address] [place] [address] Bobbi Ricks ANP 230 [place] [address] 04/28/2025 10:00 AM EDT Medication Management [facility] 230 [place] [address] Jing Brooks PharmD 230 [place] [address] documented as of this encounter Visit Diagnoses Not on filedocumented in this encounter Additional Health Concerns Assessment Noted Time PHQ-9 Depression Total Score: 14 023 9:40 AM EDT documented as of this encounter Care Teams Market Consultant Relationship Specialty Start Date End Date Bobbi Ricks ANP 230 [place] [address] PCP - General Family Medicine 03/08/21 Jing Brooks, Julia [address] [place] [address] Pharmacist Internal Medicine 03/24/24 [employer] 10/02/24 documented as of this encounter
--- OUTSIDE RECORDS SUMMARY | 2025-04-08 11:15 | XMS_ITS | Encounter Summary ---
Author Organization [employer] Address [address] [place] [address] 7t [place] [address] Care Team Providers Care Insole Doubler Name Role Phone Bobbi Ricks Primary Care Provider [phone] Jing Brooks PharmD Unavailable [phone]- [phone] Encounter Details Date Type Department Care Team (Late st Contact Info) Description 12/21/2022 Orders Only [facility] CHC MED & PEDS [address] [place], [place] [phone] Ayse Barrientos LPN Social History Tobacco Use [...] Description 04/09/2025 1:30 PM EDT Office Visit [facility] MEDICINE 230 [place], [place] [phone] Bobbi Ricks ANP 230 [place] [address] 04/28/2025 10:00 AM EDT Medication Management [facility] [address] [place] [address] Jing Brooks, Julia 230 [place] [address] documented as of this encounter Visit Diagnoses Not on filedocumented in this encounter Additional Health Concerns Assessment Noted Time PHQ-9 Depression Total Score: 14 023 9:40 AM EDT documented as of this encounter Care Teams Insole Doubler Relationship Specialty Start Date End Date Bobbi Ricks ANP [address] [place] [address] PCP - General Family Medicine 03/08/21 Jing Brooks PharmD [address] [place] [address] Pharmacist Internal Medicine 03/24/24 [employer] 10/02/24 documented as of this encounter
--- OUTSIDE RECORDS SUMMARY | 2025-04-08 11:15 | XMS_ITS | Encounter Summary ---
Author Organization [employer] Address 75 [facility] 7t [place] [address] Care Team Providers Care Bench Mover Name Role Phone Bobbi Ricks Primary Care Provider [phone] Jing Brooks PharmD Unavailable [phone] Encounter Details Date Type Department Care Team (Late st Contact Info) Description 04/05/2025 Telephone [facility] MEDICINE 230 [place] [address] Bobbi Ricks ANP 230 [place] [address] Social History Tobacco Use Types Packs/Day Years [...] Description 04/09/2025 1:30 PM EDT Office Visit [address] [address] Bobbi Ricks ANP [address] [place] [address] 04/28/2025 10:00 AM EDT Medication Management [address] [address] Piers-CerdaJing, PharmD [address] [place] [address] documented as of this encounter Goals Goal [...] documented as of this encounter Care Teams Bench Mover Relationship Specialty Start Date End Date Bobbi Ricks ANP 230 [place] [address] PCP - General Family Medicine 03/08/21 Jing Brooks, JasminD 230 [place] [address] Pharmacist Internal Medicine 03/24/24 [employer] 10/02/24 documented as of this encounter
--- OUTSIDE RECORDS SUMMARY | 2025-04-08 11:16 | XMS_ITS | Encounter Summary ---
Author Organization [employer] Address 75 [facility] 7t [place] [address] Care Team Providers Care Sofa Cover Inspector Name Role Phone Bobbi Ricks ELAINA Primary Care Provider [phone] Jing Brooks PharmD Unavailable [phone] Reason for Visit * Reason Comments Med Refill Encounter Details Date Type Department Care Team ([facility] st Contact Info) Description 03/23/2025 Refill [facility] MEDICINE 230 [place], [place] [phone] Jing Broosk, PharmD 230 [place], [place] [phone] Type 2 diabetes mellitus with hyperlipidemia ([facility]/HCC) ([facility]) Social History Tobacco Use Types Packs/Day [...] Description 04/09/2025 1:30 PM EDT Office Visit [facility] MEDICINE [address] [place] [address] Bobbi Ricks, ANP 230 [place] [address] 04/28/2025 10:00 AM EDT Medication Management [facility] MEDICINE [address] [place] [address] Jing Brooks, PharmD [address] [place] [address] documented as of this encounter Goals Goal [...] documented as of this encounter Care Teams Sofa Cover Inspector Relationship Specialty Start Date End Date Bobbi Ricks ANP 230 [place] [address] PCP - General Family Medicine 03/08/21 Jing Brooks PharmD 230 [place] [address] Pharmacist Internal Medicine 03/24/24 [employer] 10/02/24 documented as of this encounter
--- OUTSIDE RECORDS SUMMARY | 2025-04-08 11:16 | XMS_ITS | Encounter Summary ---
Author Organization [employer] Address 75 [facility] 7t [place] [address] Care Team Providers Care Vp Business Development Name Role Phone Bobbi Ricks Primary Care Provider [phone] Jing Brooks PharmD Unavailable [phone]- [phone] Encounter Details Date Type Department Care Team (Late Contact Info) Description 10/02/2022 Orders Only [facility] CHC MED & PEDS [address] [place], [place] [phone] Ayse Barrientos LPN Social History Tobacco Use [...] Upcoming Encounters Date Type Department Care Team ([facility] Contact Info) Description 04/09/2025 1:30 PM EDT Office Visit [facility] MEDICINE 230 [place], [place] [phone] Bobbi Ricks ANP 230 [place] [address] 04/28/2025 10:00 AM EDT Medication Management [facility] MED[facility] [address] [place] [address] Jing Brooks PharmD 230 [place] [address] documented as of this encounter Visit Diagnoses Not on filedocumented in this encounter Care Teams Vp Business Development Relationship Specialty Start Date End Date Bobbi Ricks ANP [address] [place] [address] PCP - General Family Medicine 03/08/21 Jing Brooks PharmD [address] [place] [address] Pharmacist Internal Medicine 03/24/24 [employer] 10/02/24 documented as of this encounter
--- OUTSIDE RECORDS SUMMARY | 2025-04-08 11:16 | XMS_ITS | Encounter Summary ---
Author Organization [employer] Address 75 [facility] 7t [place] [address] Care Team Providers Care Local Company Intermodal Truck Driver Name Role Phone Bobbi Ricks Primary Care Provider [phone] Jing Brooks PharmD Unavailable [phone] Encounter Details Date Type Department Care Team (Late st Contact Info) Description 08/14/2022 Orders Only [facility] CHC MED & PEDS [address] [place], [place] [phone] Ayse Barrientos LPN Social History Tobacco Use [...] 04/09/2025 1:30 PM EDT Office Visit [facility] MEDICINE [address] [place] [address] Bobbi Ricks ANP 230 [place] [address] 04/28/2025 10:00 AM EDT Medication Management [facility] 230 [place] [address] Jing Brooks, PharmD 230 [place] [address] documented as of this encounter Visit Diagnoses Not on filedocumented in this encounter Care Teams Local Company Intermodal Truck Driver Relationship Specialty Start Date End Date Bobbi Ricks ANP 230 [place] [address] PCP - General Family Medicine 03/08/21 Jing Brooks PharmD 230 [place] [address] Pharmacist Internal Medicine 03/24/24 [employer] 10/02/24 documented as of this encounter
--- OUTSIDE RECORDS SUMMARY | 2025-04-08 11:16 | XMS_ITS | Encounter Summary ---
Author Organization [employer] Address 75 [facility] 7t [place] [address] Care Team Providers Care Factory Maintenance Manager Name Role Phone Bobbi Ricks Primary Care Provider [phone] Jing Brooks PharmD Unavailable [phone]- [phone] Reason for Visit * Reason Comments Med Refill Encounter Details Date Type Department Care Team ([facility] Contact Info) Description 06/23/2024 Refill [facility] CHC MED & PEDS [address] [place], [place] [phone] Bobbi Ricks ANP 230 [facility] [place] [address] Mixed hyperlipidemia Social History Tobacco Use Types [...] Description 04/09/2025 1:30 PM EDT Office Visit [facility] MEDICINE [address] [place] [address] Bbobi Ricks ANP [address] [place] [address] 04/28/2025 10:00 AM EDT Medication Management [facility] MEDICINE [address] [place] [address] Piers-Alma Cerdasa, PharmD [address] [place] [address] documented as of this encounter Goals Goal [...] documented as of this encounter Care Teams Factory Maintenance Manager Relationship Specialty Start Date End Date Bobbi Ricks ANP [address] [place] [address] PCP - General Family Medicine 03/08/21 Jing Brooks, Julia [address] [place] [address] Pharmacist Internal Medicine 03/24/24 [employer] 10/02/24 documented as of this encounter
--- OUTSIDE RECORDS SUMMARY | 2025-04-08 11:16 | XMS_ITS | Encounter Summary ---
Author Organization [employer] Address 75 [facility] 7t [place] [address] Care Team Providers Care Stitch Marker Name Role Phone Bobbi Ricks Primary Care Provider [phone] Jing Brooks PharmD Unavailable [phone]- [phone] Reason for Visit * Reason Onset Date Comments Appointment Request 10/29/2022 Encounter Details Date Type Department Care Team ([facility] st Contact Info) Description 10/29/2022 Telephone [facility] MEDICINE 230 [place] [address] Bobbi Ricks ANP 230 [place] [address] Appointment Request Social History Tobacco Use Types [...] 10:38 AM EDT Tc zulma Alexander with [facility] requesting an appt with provider. Account Receivable Clerk tried booking but provider has nothing available at this time. Please contact pt at [phone] Luxembourgish Speaker documented in this encounter Plan of Treatment Upcoming Encounters Date Type Department Care Team (Late st Contact Info) Description 04/09/2025 1:30 PM EDT Office Visit [address] [address] Bobbi Ricks ANP [address] [place] [address] 04/28/2025 10:00 AM EDT Medication Management [address] [address] Jing Brooks PharmD [address] [place] [address] documented as of this encounter Visit Diagnoses Not on filedocumented in this encounter Care Teams Stitch Marker Relationship Specialty Start Date End Date Bobbi Ricks ANP [address] [place] [address] PCP - General Family Medicine 03/08/21 Jing Brooks PharmD [address] [place] [address] Pharmacist Internal Medicine 03/24/24 [employer] 10/02/24 documented as of this encounter
--- OUTSIDE RECORDS SUMMARY | 2025-04-08 11:16 | XMS_ITS | Encounter Summary ---
Author Organization [employer] Address [address] [facility] 7t [place] [address] Care Team Providers Care Agricultural Engineering Technician Name Role Phone Bobbi Ricks Primary Care Provider [phone] Jing Brooks PharmD Unavailable [phone] Reason for Visit * Reason Onset Date Comments Hospital Follow-up 11/29/2023 Encounter Details Date Type Department Care Team ([facility] st Contact Info) Description 11/29/2023 Telephone [facility] MEDICINE 230 [place] [address] Bobbi Ricks ANP 230 [place] [address] Hospital Follow-up Social History Tobacco Use Types [...] HDF f/u after recent admission to [facility] [place] on 11/26/23. Pt is stable [...] pt requesting a HDF appt. Hospital: [facility] Date of admission: 11/25 Discharge date: 11/28 Diagnosed: Acute kidney injury documented in this encounter Plan of Treatment Upcoming Encounters Date Type Department Care Team (Late st Contact Info) Description 04/09/2025 1:30 PM EDT Office Visit [facility] MEDICINE [address] [place] [address] Bobbi Ricks ANP [address] [place] [address] 04/28/2025 10:00 AM EDT Medication Management [facility] MED[facility]INE [address] [place] [address] Jing Brooks PharmD [address] [place] [address] documented as of this encounter Goals Goal [...] documented as of this encounter Care Teams Agricultural Engineering Technician Relationship Specialty Start Date End Date Bobbi Ricks ANP [address] [place] [address] PCP - General Family Medicine 03/08/21 Jing Brooks PharmD [address] [place] [address] Pharmacist Internal Medicine 03/24/24 [employer] 10/02/24 documented as of this encounter
[2025-04-12 12:45] VITALS: BMI 24.1
[2025-04-12 12:51] VITALS: BP 122/59; PULSE 62; RESP 20; O2SAT 96
[2025-04-20 07:31] VITALS: BP 158/93; PULSE 65; RESP 16; TEMP 36.5; O2SAT 97
[2025-04-20] MEDS: Lactated Ringers 1,000 ML 100 ML IVCONT (07:40)
--- NOTE | 2025-04-20 08:46 | MHC.SHP ---
Pre-Procedural Eval Section A - 24 Hr Update-Section A only Date of Service: 04/20/25 The patient is an INPATIENT: No The patient has been examined within 24 hours of the surgical procedure. The History & Physical has been completed within 30 days and I have reviewed it.: Yes Section B - Complete if H&P > 30 days Chief Complaint: Other specified diseases of anus and rectum Allergies: Allergies Allergy/AdvReac Type Severity Reaction Status Date / Time amlodipine AdvReac Intermediate leg edema Verified 04/12/25 12:32 Plan I have reviewed the history and physical and performed a pertinent physical examination on my patient. No changes have occurred unless specified. Time Spent With Patient Time: Total time managing care of this patient today ____ minutes.
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
--- NOTE | 2025-04-20 09:44 | P.OP_ITS ---
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 He understood the technique of exam under anesthesia and the planned procedure. He understood the risks, benefits, and alternatives. He had given consent He was brought to the operating room. He was placed in prone pj-knife position under general anesthesia via endotracheal tube. The buttocks were retracted with wide tape laterally. The perianal area was prepped and draped in the usual sterile fashion. A surgical time-out was done. The patient received Cefotan 2 g IV preoperatively Examination of the perianal area revealed an external sinus with hypergranulation tissue on the left perianal area, about 1.5 cm from the verge. I infiltrated the perianal area with lidocaine 1%. I inserted the Santos Wallace retractor. I examined the anal canal circumferentially. It was noted to have prominent internal external hemorrhoids as well. There was initially no obvious sinus I probed the external sinus and would not advance this into the anal canal. This has seemed to be a very large cavity with hypergranulation incision tissue. I therefore proceeded to unroof this using the electrocautery and opened up the entire abscess cavity which was about 2 cm in size. There was note of some residual pus in the area. There was note of hypergranulation tissue surrounding the entire cavity so I cauterized this. By doing so, I was able to visualize the entire cavity and reapplied the probe to make sure that we were not missing any sinuses. We actually were able to see a fistula leading into the posterior aspect of the dentate line. The probe passed easily through this. I passed the yellow vessel loop as a seton through this tract. The tract seemed to involve at least part of the sphincter complex I loop this and closed the vessel loop with a silk 2-0 tie I cauterized all hypergranulation tissue within the large abscess cavity. There were no other lesions in the anal canal. There were significant hemorrhoids I infiltrated the perianal area with Marcaine 0.5% for postop analgesia. The procedure was then completed The patient tolerated the procedure well. There were no immediate complications. Initial and final counts of sponges and instruments were correc t. Estimated blood loss was about 20 cc. The patient was extubated without difficulty and transferred to the recovery room with stable vital signs.
[2025-04-20 09:54] VITALS: BP 120/61; PULSE 51; RESP 14; TEMP 36.2; O2SAT 96
[2025-04-20 09:59] VITALS: BP 106/59; PULSE 59; RESP 16; O2SAT 99
[2025-04-20 10:04] VITALS: BP 100/68; PULSE 56; RESP 16; O2SAT 97
[2025-04-20 10:09] VITALS: BP 127/75; PULSE 60; RESP 16; O2SAT 95
[2025-04-20 10:24] VITALS: BP 142/82; PULSE 56; RESP 16; TEMP 36.3; O2SAT 94
== END 2025-04-20 10:56 | disposition home or self-care (01) ==
PROVIDERS: Visit Provider Surgery
PROC: (CPT 46060; principal; 2025-04-20 09:30)
DX: K60.3 Anal fistula (principal); K62.89 Other specified diseases of anus and rectum; K64.8 Other hemorrhoids; K64.4 Residual hemorrhoidal skin tags; I47.29 Other ventricular tachycardia; I25.10 Atherosclerotic heart disease of native coronary artery without angina pectoris; Z95.5 Presence of coronary angioplasty implant and graft; E78.5 Hyperlipidemia, unspecified; E03.9 Hypothyroidism, unspecified; I10 Essential (primary) hypertension; E11.42 Type 2 diabetes mellitus with diabetic polyneuropathy; Z90.49 Acquired absence of other specified parts of digestive tract; Z88.8 Allergy status to other drugs, medicaments and biological substances; Z79.82 Long term (current) use of aspirin; Z79.84 Long term (current) use of oral hypoglycemic drugs; Z79.899 Other long term (current) drug therapy
CPT/HCPCS: 46060; 82947; J0131; J0330; J1100; J1171; J2003; J2405; J2704; J2795; J3010

== ENCOUNTER → 2025-04-20 07:15 | Outpatient (BNV) | payer OTHER, SELFPAY | PROVIDERS: Visit Provider Surgery | DX: K60.319 Anal fistula, simple, unspecified (principal) | CPT/HCPCS: 46020 ==

== ENCOUNTER 2025-05-06 09:24 | Outpatient (AMB) | payer OTHER, SELFPAY ==
--- NOTE | 2025-05-06 09:25 | A.OFFVIS_ITS ---
Vital Signs 05/06/25 09:38 Height 5 ft 11 in Weight 170 lb BMI 23.7 BP 160/79 H Blood Pressure Location Lt brachial Position Sitting Pulse 67 Intake Visit Reasons: S/P perianal cysts/fistuotomy, poss. seton Intake Note: This patient presents for follow-up status post Exam under anesthesia, unroofing and sharp debridement of a perianal abscess cavity, with seton placement for an anal fistula. 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 seton: Details: He underwent hemorrhoid anesthesia and seton placement for an anal fistula last 04/20/2025. He tolerated the procedure well. He currently denies significant complaints. He does admit to some drainage from the area. PENDING SALE TO [facility] Medical History Anal fistula Prosthetic eye globe Language barrier Cervical spondylitis Perianal infection Acquired hypothyroidism Dyslipidemia NSVT (nonsustained ventricular tachycardia) Atherosclerotic cardiovascular disease Essential hypertension Type 2 diabetes mellitus with diabetic polyneuropathy Surgical History Hx of surgical procedure (~04/20/25) Hx of CABG Hx of amputation H/O heart artery stent History of colon resection Hx of colonoscopy History of cardiac catheterization Family History Father No problems noted. Mother No problems noted. 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) Alcohol intake: current Alcohol intake frequency: former alcohol drinker Comment: pt refused camera in room, states unable to sleep with light from equipment Patient Tobacco Use Status: Never used Tobacco Second Hand Smoke Exposure: No Advance Directives Date on File: 10/03/20 service: No Review of Systems Const Denies chills and Denies fever(s) Physical Exam Const General: comfortable and no acute distress Resp Effort & Inspection: normal respiratory effort GI Other: Rectal exam shows the seton to be in place, open wound with good healthy granulation tissue around the external fistulous opening Assessment & Plan Assessment & Plan (1) Anal fistula: Code(s): K60.30 - Anal fistula, unspecified Category: Medical Plan: Status post debridement of cavity with seton placement for an anal fistula. He is doing well. His seton is in place. The debridement site is granulating well I advised him to continue doing hot Sitz baths 3 times a day. I will see him in the office in about 1 month to see how he is doing and I will probably tighten the seton at that time Coding Level of Care Code Global (51505) Diagnoses Anal fistula K60.30
[2025-05-06 09:38] VITALS: BP 160/79; PULSE 67; BMI 23.7
== END 2025-05-06 09:40 | disposition home or self-care (01) ==
LOC: HO.HGS 09:24
PROVIDERS: Visit Provider Surgery
DX: K60.30 Anal fistula, unspecified (principal)
CPT/HCPCS: 99024

== ENCOUNTER → 2025-05-06 09:24 | Outpatient (BNVA) | payer OTHER, SELFPAY | PROVIDERS: Visit Provider Surgery | DX: N18.30 Chronic kidney disease, stage 3 unspecified (principal); N17.0 Acute kidney failure with tubular necrosis; E11.9 Type 2 diabetes mellitus without complications; E78.5 Hyperlipidemia, unspecified; K60.30 Anal fistula, unspecified | CPT/HCPCS: 99212 ==

== ENCOUNTER 2025-05-06 09:47 | Outpatient (AMB) | payer OTHER, SELFPAY ==
[2025-05-06 10:26] VITALS: BP 112/68; BMI 23.7
--- NOTE | 2025-05-06 10:26 | HO.NEPHOV ---
Vital Signs 05/06/25 10:26 Height 5 ft 11 in Weight 170 lb BMI 23.7 BP 112/68 Blood Pressure Location Rt brachial Position Sitting Intake Visit Reasons: FU , confirmed Beam Dyer Recessed Vat Required: Yes Beam Dyer Recessed Vat Name: [id number] Accompanied by: PROJECT FACILITATOR Allergies amlodipine Adverse Reaction (Intermediate, Verified 05/06/25 10:28) leg edema Medication List - Last Reconciled 05/06/25 by Frederic Harris MD acetaminophen ER 650 mg PO Q8H PRN aspirin 81 mg PO QAM atenolol 100 mg PO DAILY atorvastatin 80 mg PO BEDTIME 30 days blood sugar diagnostic (FreeStyle Lite Strips) 3times a day cholecalciferol (vitamin D3) 50 mcg PO QAM docusate sodium 100 mg PO BID PRN empagliflozin (Jardiance) 10 mg PO DAILY folic acid 1 mg PO DAILY gabapentin 600 mg PO BEDTIME hydralazine 50 mg PO TID ibuprofen 600 mg PO Q6H PRN insulin degludec (Tresiba FlexTouch U-100 insulin) 12 units subcut QPM isosorbide mononitrate ER 120 mg PO QPM lancets (TRUEplus Lancets) 3 times a day levothyroxine 125 mcg PO QAM melatonin 6 mg PO BEDTIME PRN multivitamin with iron 1 tab PO DAILY oxycodone-acetaminophen 5-325 mg 1 tab PO Q6H PRN pantoprazole 40 mg PO QAM ranolazine ER 500 mg PO BID semaglutide (Ozempic) mg subcut tamsulosin 0.4 mg PO QPM HPI Comments Details: 68 Divehi-speaking man with type 2 diabetes mellitus on oral hypoglycemic agents, hypothyroidism, CAD and dyslipidemia . He was on ACEI & Spironolactone. Denied illicit drug use. His creatinine was found to be 4.71 (it was 1.57 on Feb 2023) with bicarb of 15 but had no hyperkalemia.He was admitted for further management. Bactrim was recently added MT resolved with hydration and after stopping ACEi/Bactrim 04/20/24 Overall doing doing well Interpretor service was used. NO urinary symptoms 01/04/25 69-year-old male presenting with acute back pain and suspected urinary tract infection. The acute back pain began this morning and is severe, affecting the entire back and causing difficulty in standing. It started after washing activities. The patient has been advised to increase water intake, which he has done. There is no mention of related medical history or prior occurrences, and no other exacerbating or relieving factors were described. 05/06/25 - The patient is a 69-year-old male presenting with management of kidney function and hypertension. - Impaired vision post-eye surgery: Surgery performed due to poor vision. - Chronic Kidney Disease: Kidney function improved from 46% to 59% with increased water intake. - Hypertension: Under management for high blood pressure. - Polyuria: Reports frequent urination, especially at night, with increased water intake. [facility] Medical History Anal fistula Prosthetic eye globe Language barrier Cervical spondylitis Perianal infection Acquired hypothyroidism Dyslipidemia NSVT (nonsustained ventricular tachycardia) Atherosclerotic cardiovascular disease Essential hypertension Type 2 diabetes mellitus with diabetic polyneuropathy Surgical History Hx of surgical procedure (~04/20/25) Hx of CABG Hx of amputation H/O heart artery stent History of colon resection Hx of colonoscopy History of cardiac catheterization Family History Father No problems noted. Mother No problems noted. Social History Household Members: None Housing: Condominium Are you a primary progressive care manager to a significant other at home: No Do you presently have visiting nurse or other home services: Yes ([facility], PROJECT FACILITATOR) Alcohol intake: current Alcohol intake frequency: former alcohol drinker Comment: pt refused camera in room, states unable to sleep with light from equipment Patient Tobacco Use Status: Never used Tobacco Second Hand Smoke Exposure: No Advance Directives Date on File: 10/03/20 service: No Physical Exam Vital Signs: Last Vital Signs BP 112/68 05/06/25 10:26 BMI result Body Mass Index 23.7 Comfortable Neck supple no JVD. Lungs entry equal no rales. Heart S1-S2 heard no gallop or rub. Abdomen soft nontender. Neuro alert awake oriented. No asterixis. Extremities no edema. Const General: comfortable; No acute distress Orientation/consciousness: patient oriented x3 Eyes General: appearance normal, both eyes and all related structures Visual Bolanos: normal visual bolanos by confrontation Neck Neck: Yes supple and Yes no JVD Resp Effort & Inspection: normal respiratory effort and respiratory effort not decreased Cardio Palpation: no palpable S3 and no palpable S4 Heart sounds: no rubs GI Inspection: Yes normal to inspection Palpation (GI): Soft to palpation Percussion: Yes normal to percussion Auscultation: normal bowel sounds General: Yes no CVA tenderness Back/Spine/Pelvis Back: no CVA tenderness Skin General skin exam: no petechiae and no purpura Neuro General: patient oriented x3 and no focal motor deficits Extrem General: No clubbing and No edema Results Reviewed Nephrology Results: Renal US 02/26/25 Assessment & Plan Assessment & Plan (1) Acute on chronic renal failure: Code(s): N17.9 - Acute kidney failure, unspecified; N18.9 - Chronic kidney disease, unspecified Category: Medical Qualifiers: Acute renal failure type: with acute tubular necrosis Chronic kidney disease stage: stage 3 (moderate) Chronic kidney disease stage 3 subtype: stage 3a (GFR 45-59) Qualified Code(s): N17.0 - Acute kidney failure with tubular necrosis; N18.31 - Chronic kidney disease, stage 3a Plan: MT superimposed on CKD due to hypoperfusion Renal function improved with hydration and after stopping ACEi /Bactrim/Aldactone combination BP well controlled Stay on low salt diet Keep I > O ; Encouraged PO fluid intake Avoid combination of ACEi/Spironolactone. Agree with SGLT-2 inhibitors Obtain follow up renal ultrasonogram. Renal function has improved and a tbseline Cr down to 1.21 Currently at baseline. Coding Level of Care Code Est Pt Level 4 (94930) Diagnoses Acute renal failure with acute tubular necrosis superimposed on stage 3a chronic kidney disease N17.0; N18.31 Acute renal failure type: with acute tubular necrosis Chronic kidney disease stage: stage 3 (moderate) Chronic kidney disease stage 3 subtype: stage 3a (GFR 45-59)
== END 2025-05-06 10:44 | disposition home or self-care (01) ==
LOC: HO.HKA 09:47
PROVIDERS: PCP Nurse Practitioner Primary Care; Visit Provider Internal Medicine Hypertension Specialist
DX: N17.0 Acute kidney failure with tubular necrosis (principal); N18.31 Chronic kidney disease, stage 3a
CPT/HCPCS: 99214

== ENCOUNTER 2025-05-24 08:33 | Outpatient (AMB) | payer OTHER, SELFPAY ==
--- NOTE | 2025-05-24 08:43 | MHC.OFFVIS ---
Vital Signs 05/24/25 08:46 Height 5 ft 11 in Weight 170 lb BMI 23.7 BP 144/81 H Blood Pressure Location Lt brachial Position Sitting Respiration 16 Pulse 76 Pulse Source Pulse Oximeter Pulse Oximetry (%) 97 Oxygen Delivery Method Room Air Intake Visit Reasons: Peripheal axonal Neuropathy Java Core Developer Required: Yes Java Core Developer Services: Java Core Developer Present Allergies amlodipine Adverse Reaction (Intermediate, Verified 05/24/25 08:42) leg edema HPI Comments Details: Steve is a 69-year-old male patient with a past medical history of type 2 diabetes, depression, memory loss, CAD, hypertension, and hyperlipidemia who is here today for evaluation of left lower extremity pain with findings on EMG significant for a 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 The patient tells me today, that he was having pain to his left lower extremity for several months. His pain began from his back and radiated down. His low back and left lower extremity pain have since subsided and he denies any redidual feelings of numbness or tingling. He denies any falls or changes to his balance. He is more concerned today about pain to his left hand that has been going on for years. He is seeing a specialist for his hand on 06/08/25. He is overall a poor historian in regards to his LLE symptoms that led to today's visit. Social: Patient lives home alone. He is . He denies the use of tobacco, alcohol, or illicit drugs Prior workup: EMG 02/2025 Impression: [id number] sensory and motor axonal peripheral neuropathy with no evidence of radiculopathy [facility] Medical History Anal fistula Prosthetic eye globe Language barrier Cervical spondylitis Perianal infection Acquired hypothyroidism Dyslipidemia NSVT (nonsustained ventricular tachycardia) Atherosclerotic cardiovascular disease Essential hypertension Type 2 diabetes mellitus with diabetic polyneuropathy Surgical History Hx of surgical procedure (~04/20/25) Hx of CABG Hx of amputation H/O heart artery stent History of colon resection Hx of colonoscopy History of cardiac catheterization Family History Father No problems noted. Mother No problems noted. Social History Household Members: None Housing: Condominium Are you a primary acute care clinical nurse specialist to a significant other at home: No Do you presently have visiting nurse or other home services: Yes ([facility], STOREROOM SUPERVISOR) Alcohol intake: current Alcohol intake frequency: former alcohol drinker Comment: pt refused camera in room, states unable to sleep with light from equipment Patient Tobacco Use Status: Never used Tobacco Second Hand Smoke Exposure: No Advance Directives Date on File: 10/03/20 service: No Review of Systems Const All systems reviewed & are unremarkable except as noted in HPI and below Physical Exam Vital Signs: Last Vital Signs Pulse 76 05/24/25 08:46 Resp 16 05/24/25 08:46 BP 144/81 H 05/24/25 08:46 Pulse Ox 97 05/24/25 08:46 Oxygen Delivery Method Room Air 05/24/25 08:46 BMI result Body Mass Index 23.7 Const General: cooperative, healthy appearing, comfortable and no acute distress Nutritional Appearance: well nourished Orientation/consciousness: patient oriented x3 Limitations: no limitations HEENT Head: Yes normal to inspection and Yes normocephalic Eyes General: appearance normal, both eyes and all related structures Visual Vazquez: normal visual vazquez by confrontation Alignment and Position: alignment normal Periorbital: periorbital findings normal Eyelids: Yes eyelids normal Conjunctivae: conjunctivae normal Sclerae: sclerae normal Neuro General: patient oriented x3 and tone normal Cranial nerves: Yes CN's II-XII intact bilaterally Cognition (Neuro): normal cognition Gait exam (Neuro): Other gait observations present (Left-sided drop foot evident with ambulation) Motor exam (neuro): no tremor noted and Abnormal motor strength present (Left-sided dorsiflexion -4/5. Otherwise, his strength was normal) Sensory Exam: Abnormal lower extremity sensory exam (Left lower extremity did exhibit slight reduction in vibratory sensation) Deep tendon reflexes (DTR's): Right triceps reflex intensity grade: 1+, Left triceps reflex intensity grade: 1+, Rt Biceps (C5, C6): 1+, Left biceps reflex intensity grade: 1+, Right brachioradialis reflex intensity grade: 1+, Left brachioradialis reflex intensity grade: 1+, Right patellar reflex intensity grade: 0, Left patellar reflex intensity grade: 0, Right ankle reflex intensity grade: 0 and Left ankle reflex intensity grade: 0 Plantar Reflex Responses: equivocal: bilateral Romberg Test: Negative Pupils: Normal pupillary reactivity/response: bilateral Psych Appearance: grossly normal Mental Status: mental status grossly normal Speech and movement: Normal speech and movement present and Clear speech present Affect: normal affect Attitude: cooperative Thought process: Normal thought process present Thought content: Normal thought content present Insight: Good insight present (Psych) Judgement: Good judgement present (Psych) Assessment & Plan Assessment & Plan (1) Drop foot gait: Code(s): M21.379 - Foot drop, unspecified foot Category: Medical (2) Foot drop, left: Code(s): M21.372 - Foot drop, left foot Category: Medical Plan Steve is a 69-year-old male patient with a past medical history of type 2 diabetes, depression, memory loss, CAD, hypertension, and hyperlipidemia who is here today for evaluation of left lower extremity pain with findings on EMG significant for a 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 His referral was sent in the setting of left leg pain which has since resolved. His pain when present however was radicular radiating from his low back down his leg. Because this pain has subsided, it is likely that this pain was musculoskeletal. He does however have significant changes on his EMG study but without evidence of radiculopathy noted on the report. I did again review the study with . His exam today does reveal a left-sided footdrop. In patients who have longstanding history is of diabetic neuropathies, deterioration of the function of the peroneal nerve can occur. I could not fully exclude a superimposed peroneal neuropathy on his EMG study and his prior lumbar spine x-ray did show multilevel lumbar degenerative disc disease most pronounced at L4 through L5 and L5 through S1. Nerve root impingement in these areas can lead to a peroneal neuropathy and related footdrop. -obtain lumbar spine MRI -follow up on her MRI study Orders: Orders MR lumbar spine wo con Today E11.40 - Type 2 diabetes mellitus with diabetic neuropathy, unspecified, M21.372 - Foot drop, left foot, M21.379 - Foot drop, unspecified foot Coding Level of Care Code New Pt Level 4 (50783) Diagnoses Drop foot gait M21.379 Foot drop, left M21.372
[2025-05-24 08:46] VITALS: BP 144/81; PULSE 76; RESP 16; O2SAT 97; BMI 23.7
--- OUTSIDE RECORDS SUMMARY | 2025-05-24 08:53 | XMS_ITS | Clinical Summary ---
Author Organization [facility] Address [address] [facility] [address] [place] [address] Phone Care Team Providers Care Laminating Machine Operator Helper Name Role Phone Bobbi Ricks NP Primary Care Provider [phone] Allergies Active Allergy Reactions Criticality Noted Date [...] patient's age to complete this topic Insurance [facility] ([id number]) IRIS MEJIAS [id number] [facility] ([id number]) IRIS MEJIAS [phone] Care Teams Laminating Machine Operator Helper Relationship Specialty Start Date End Date Bobbi Ricks NP PCP - General Nurse Practitioner 07/04/23
--- OUTSIDE RECORDS SUMMARY | 2025-05-24 08:53 | XMS_ITS | Encounter Summary ---
Author Organization [employer] Address [address] [facility] 7t [place] [address] Care Team Providers Care Paid Internship Name Role Phone Bobbi Ricks Primary Care Provider [phone] Jing Brooks PharmD Unavailable [phone] Lacho García MD Unavailable [phone] Reason for Visit * Reason Comments Med Refill Encounter Details Date Type Department Care Team (Late st Contact Info) Description 11/01/2023 Refill [facility] MED & PEDS [address] [place], [place] [phone] Bobbi Ricks ANP [address] [place] [address] Pain Social History Tobacco Use Types Packs/Day [...] Care Team (Late st Contact Info) Description 06/15/2025 11:00 AM EST Medication Management [facility] MEDICINE [address] [place] [address] Jing Brooks PharmD 230 [place] [address] documented as of this encounter Goals Goal Patient Goal Type Associated Problems Recent Progress Patient-Stated? Author Blood Pressure < 140/90 Blood Pressure 130/68(2024 9:16 AM EDT) No Rishis-Gambvu lugo, Jing, PharmD Hemoglobin A1c < 7 Result Component 6.2( 1:26 PM EDT) No Rsihis-Alma Rosalessa, PharmD documented as of this encounter Visit Diagnoses Diagnosis Pain Generalized pain documented in this encounter Additional Health Concerns Assessment Noted Time PHQ-9 Depression Total Score: 14 023 9:40 AM EDT documented as of this encounter Care Teams Paid Internship Relationship Specialty Start Date End Date Bobbi Ricks ANP [address] [place] [address] [id number] PCP - General Family Medicine 03/08/21 Jing Brooks, PharmD [address] [place] [address] [phone] Pharmacist Internal Medicine 03/24/24 Lacho García MD [address] [place] [address] Drive 3rd [place] [address] Cardiology 04/09/25 [employer] 10/02/24 documented as of this encounter
--- OUTSIDE RECORDS SUMMARY | 2025-05-24 08:53 | XMS_ITS | Encounter Summary ---
Author Organization [employer] Address [address] [facility] 7t [place] [address] Care Team Providers Care Locksmith Name Role Phone Bobbi Ricks Primary Care Provider [phone] Jing Brooks PharmD Unavailable [phone] Lacho García MD Unavailable [phone] Encounter Details Date Type Department Care Team ([facility] Contact Info) Description 12/21/2022 Orders Only [facility] MED & PEDS [address] [place], [place] [phone] Ayse Barrientos LPN Social History Tobacco Use [...] Upcoming Encounters Date Type Department Care Team ([facility] Contact Info) Description 06/15/2025 11:00 AM EST Medication Management [facility] MEDICINE 230 [place], [place] [phone] Jing Brooks PharmD [address] [place] [address] documented as of this encounter Visit Diagnoses Not on filedocumented in this encounter Additional Health Concerns Assessment Noted Time PHQ-9 Depression Total Score: 14 023 9:40 AM EDT documented as of this encounter Care Teams Locksmith Relationship Specialty Start Date End Date Bobbi Ricks ANP [address] [place] [address] PCP - General Family Medicine 03/08/21 Jing Brooks PharmD [address] [place] [phone] Pharmacist Internal Medicine 03/24/24 Lacho García MD [address] [place] [address] 3rd [place] [address] Cardiology 04/09/25 [employer] 10/02/24 documented as of this encounter
--- OUTSIDE RECORDS SUMMARY | 2025-05-24 08:53 | XMS_ITS | Encounter Summary ---
Author Organization [employer] Address [address] [facility] 7t [place] [address] Care Team Providers Care Design Printing Machine Setter Name Role Phone Bobbi Ricks Primary Care Provider [phone] Jing Brooks PharmD Unavailable [phone] Lacho García MD Unavailable [phone] Reason for Visit * Reason Comments Med Refill Encounter Details Date Type Department Care Team (Late st Contact Info) Description 11/12/2023 Refill [facility] MEDICINE 230 [place], [place] [phone] Bobbi Ricks ANP 230 [place] [address] Essential hypertension Social History Tobacco Use Types [...] Description 06/15/2025 11:00 AM EST Medication Management [facility] MEDICINE 230 [place] [address] Jing Brooks PharmD 230 [place] [address] documented as of this encounter Goals Goal Patient Goal Type Associated Problems Recent Progress Patient-Stated? Author Blood Pressure < 140/90 Blood Pressure 130/68(2024 9:16 AM EDT) No Jing Smith, PharmD Hemoglobin A1c < 7 Result Component 6.2( 1:26 PM EDT) No Jing Smith PharmD documented as of this encounter Visit Diagnoses Diagnosis Essential hypertension Unspecified essential hypertension documented in this encounter Additional Health Concerns Assessment Noted Time PHQ-9 Depression Total Score: 14 023 9:40 AM EDT documented as of this encounter Care Teams Design Printing Machine Setter Relationship Specialty Start Date End Date Bobbi Ricks ANP [address] [place] [address] [phone] PCP - General Family Medicine 03/08/21 Jing Brooks, PharmD [address] [place] [address] [phone] Pharmacist Internal Medicine 03/24/24 Lacho García MD [address] [place] [address] 3rd [place] [address] Cardiology 04/09/25 [employer] 10/02/24 documented as of this encounter
--- OUTSIDE RECORDS SUMMARY | 2025-05-24 08:53 | XMS_ITS | Encounter Summary ---
Author Organization [employer] Address [address] [facility] [address]t [address] [place] [address] Care Team Providers Care Farmworker Fur Name Role Phone Bobbi Ricks Primary Care Provider [phone] Jing Brooks PharmD Unavailable [phone] Lacho García MD Unavailable [phone] Reason for Visit * Reason Comments Med Refill Encounter Details Date Type Department Care Team (Late st Contact Info) Description 10/30/2023 Refill [facility] MED & PEDS [address] [place], [place] [phone] Bobbi Ricks ANP [address] [place] [address] Pain Social History Tobacco Use Types Packs/Day [...] Description 06/15/2025 11:00 AM EST Medication Management [facility] MEDICINE 230 [place] [address] Jing Brooks PharmD 230 [place] [address] documented as of this encounter Goals Goal Patient Goal Type Associated Problems Recent Progress Patient-Stated? Author Blood Pressure < 140/90 Blood Pressure 130/68(2024 9:16 AM EDT) No Rishis-Gambvu lugo, Jing, PharmD Hemoglobin A1c < 7 Result Component 6.2( 1:26 PM EDT) No Rishis-Alma Rosalessa, PharmD documented as of this encounter Visit Diagnoses Diagnosis Pain Generalized pain documented in this encounter Additional Health Concerns Assessment Noted Time PHQ-9 Depression Total Score: 14 023 9:40 AM EDT documented as of this encounter Care Teams Farmworker Fur Relationship Specialty Start Date End Date Bobbi Ricks ANP [address] [place] [address] [phone] PCP - General Family Medicine 03/08/21 Jing Brooks, PharmD [address] [place] [address] [phone] Pharmacist Internal Medicine 03/24/24 Lacho García MD [address] [place] [address] Drive 3rd [place] [address] Cardiology 04/09/25 [employer] 10/02/24 documented as of this encounter
--- OUTSIDE RECORDS SUMMARY | 2025-05-24 08:53 | XMS_ITS | Encounter Summary ---
Author Organization [employer] Address [address] [facility] 7t [place] [address] Care Team Providers Care Flavor Room Worker Name Role Phone Bobbi Ricks ELAINA Primary Care Provider [phone] Jing Brooks PharmD Unavailable [phone] Lacho García MD Unavailable [phone] Reason for Visit * Reason Comments Med Refill Encounter Details Date Type Department Care Team (Late st Contact Info) Description 04/28/2025 Refill [facility] MEDICINE 230 [place] [address] Jing Brooks, PharmD 230 [place], [place] [phone] Type 2 diabetes mellitus with hyperlipidemia (HCC) Social History Tobacco Use Types Packs/Day Years [...] Telephone Encounter - Jing Brooks PharmD - 04/30/2025 1:57 PM EDT Ozempic dose increased to 2mg; 1mg refill request was denied documented in this encounter Plan of Treatment Upcoming Encounters Date Type Department Care Team (Late st Contact Info) Description 06/15/2025 11:00 AM EST Medication Management [facility] MEDICINE [address] [place] [address] Jing Brooks PharmD 230 [place] [address] documented as of this encounter Goals Goal Patient Goal Type Associated Problems Recent Progress Patient-Stated? Author Blood Pressure < 140/90 Blood Pressure 130/68(2024 9:16 AM EDT) No Jing Smith PharmD Hemoglobin A1c < 7 Result Component 6.2( 1:26 PM EDT) No Jing Smith PharmD documented as of this encounter Visit Diagnoses Diagnosis Type 2 diabetes mellitus with hyperlipidemia (HCC) documented in this encounter Additional Health Concerns Assessment Noted Time PHQ-9 Depression Total Score: 2 10/27/19 25 11:28 AM EDT documented as of this encounter Care Teams Flavor Room Worker Relationship Specialty Start Date End Date Bobbi Ricks ANP 230 [place] [address] PCP - General Family Medicine 03/08/21 Jing Brooks PharmD 230 [place] [address] Pharmacist Internal Medicine 03/24/24 Lacho García MD [address] [place] [address] 3rd [place] [address] Cardiology 04/09/25 [employer] 10/02/24 documented as of this encounter
--- OUTSIDE RECORDS SUMMARY | 2025-05-24 08:53 | XMS_ITS | Encounter Summary ---
Author Organization [employer] [facility] Address [address] [place] [address] 7t [place] [address] Care Team Providers Care Recreation Engineer Name Role Phone Bobbi Ricks ELAINA Primary Care Provider [phone] Jing Brooks PharmD Unavailable [phone] Lacho García MD Unavailable [phone] Encounter Details Date Type Department Care Team (Late st Contact Info) Description 03/18/2023 Orders Only [facility] MEDICINE [address] [place] [phone] Vj Tolbert [address] [place] [address] Social History Tobacco Use Types Packs/Day Years [...] 11:00 AM EST Medication Management [facility] MEDICINE [address] [place] [phone] Jing Brooks, PharmD [address] [place] [address] documented as of this encounter Visit Diagnoses Not on filedocumented in this encounter Additional Health Concerns Assessment Noted Time PHQ-9 Depression Total Score: 14 023 9:40 AM EDT documented as of this encounter Care Teams Recreation Engineer Relationship Specialty Start Date End Date Bobbi Ricks ANP [address] [place] [address] PCP - General Family Medicine 03/08/21 Jing Brooks PharmD [address] [place] [address] Pharmacist Internal Medicine 03/24/24 Lacho García MD [address] [place] [address] Drive 3rd [place] [address] Cardiology 04/09/25 [employer] 10/02/24 documented as of this encounter
--- OUTSIDE RECORDS SUMMARY | 2025-05-24 08:53 | XMS_ITS | Encounter Summary ---
Author Organization [employer] Address [address] [facility] 7t [place] [address] Care Team Providers Care Shipyard Supervisor Name Role Phone Bobbi Ricks Primary Care Provider [phone] Jing Brooks PharmD Unavailable [phone] Lacho García MD Unavailable [phone] Encounter Details Date Type Department Care Team (Late st Contact Info) Description 04/05/2025 Telephone [facility] MEDICINE [address] [place] [address] Bobbi Ricks ANP [address] [place] [address] Social History Tobacco Use Types Packs/Day Years [...] Description 06/15/2025 11:00 AM EST Medication Management [facility] [address] [place] [address] RishisJing Escobar, PharmD [address] [place] [address] documented as of this encounter Goals Goal Patient Goal Type Associated Problems Recent Progress Patient-Stated? Author Blood Pressure < 140/90 Blood Pressure 130/68(2024 9:16 AM EDT) No Piers-Gambl e, Jing, PharmD Hemoglobin A1c < 7 Result Component 6.2( 1:26 PM EDT) No Piers-Gambl e, Jing, PharmD documented as of this encounter Visit Diagnoses Not on filedocumented in this encounter Additional Health Concerns Assessment Noted Time PHQ-9 Depression Total Score: 2 10/27/19 25 11:28 AM EDT documented as of this encounter Care Teams Shipyard Supervisor Relationship Specialty Start Date End Date Bobbi Ricks ANP [address] [place] [address] PCP - General Family Medicine 03/08/21 Piers-Cerda, Jing, PharmD [address] [place] [address] Pharmacist Internal Medicine 03/24/24 Lacho García MD [address] [place] [address] 3rd [place] [address] Cardiology 04/09/25 [place] 10/02/24 documented as of this encounter
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
--- OUTSIDE RECORDS SUMMARY | 2025-05-24 08:53 | XMS_ITS | Encounter Summary ---
Author Organization [employer] [facility] Address [address] [place] [address] 7t [place] [address] Care Team Providers Care Alliance Manager Name Role Phone Bobbi Ricks Primary Care Provider [phone] Jing Brooks PharmD Unavailable Lacho García MD Unavailable [phone] Reason for Visit * Reason Comments Med Refill Encounter Details Date Type Department Care Team (Late st Contact Info) Description 02/14/2023 Refill [facility] MEDICINE [address] [place] [address] Bobbi Ricks ANP [address] [place] [address] Hypertension associated with diabetes (CMS/HCC) Social History [...] Description 06/15/2025 11:00 AM EST Medication Management [facility] MEDICINE [address] [place] [address] Jing Brooks, PharmD [address] [place] [address] documented as of this encounter Visit Diagnoses Diagnosis Hypertension associated with diabetes (HCC) Unspecified essential hypertension documented in this encounter Additional Health Concerns Assessment Noted Time PHQ-9 Depression Total Score: 14 023 9:40 AM EDT documented as of this encounter Care Teams Alliance Manager Relationship Specialty Start Date End Date Bobbi Ricks ANP [address] [place] [address] PCP - General Family Medicine 03/08/21 Jing Brooks, Julia [address] [place] [phone] Pharmacist Internal Medicine 03/24/24 Lacho García MD [address] [place] [address] 3rd [place] [address] Cardiology 04/09/25 [employer] 10/02/24 documented as of this encounter
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
--- OUTSIDE RECORDS SUMMARY | 2025-05-24 08:53 | XMS_ITS | Encounter Summary ---
Author Organization [employer] Address [address] [facility] [address] [place] [address] Care Team Providers Care Research Program Intern Name Role Phone Bobbi Ricks Primary Care Provider [phone] Jing Brooks PharmD Unavailable [phone] Lacho García MD Unavailable [phone] Reason for Visit * Reason Comments Med Refill Encounter Details Date Type Department Care Team (Late st Contact Info) Description 05/24/2025 Refill [facility] [address] [place] [address] Bobbi Ricks ANP [address] [place] [address] Social History Tobacco Use Types Packs/Day Years [...] Description 06/15/2025 11:00 AM EST Medication Management [facility] [address] [place] [address] RishisJing Escobar, PharmD [address] [place] [address] documented as of this encounter Goals Goal [...] documented as of this encounter Care Teams Research Program Intern Relationship Specialty Start Date End Date Bobbi Ricks ANP [address] [place] [address] PCP - General Family Medicine 03/08/21 Jing Brooks, JasminD [address] [place] [phone] Pharmacist Internal Medicine 03/24/24 Lacho García MD [address] [place] [address] 3rd [place] [address] Cardiology 04/09/25 [employer] 10/02/24 documented as of this encounter
--- OUTSIDE RECORDS SUMMARY | 2025-05-24 08:53 | XMS_ITS | Encounter Summary ---
Author Organization [employer] Address 75 [facility] 7t [place] [address] Care Team Providers Care Mine Development Engineer Name Role Phone Bobbi Ricks Primary Care Provider [phone] Jing Brooks PharmD Unavailable [phone] Lacho García MD Unavailable [phone] Encounter Details Date Type Department Care Team (Late st Contact Info) Description 10/21/2023 Orders Only [facility] MEDICINE 230 [place] [address] Bobbi Ricks ANP 230 [place] [address] Social History Tobacco Use Types Packs/Day Years [...] 11:00 AM EST Medication Management [facility] MEDICINE 230 [place] [address] Jing Brooks PharmD 230 [place] [address] documented as of this encounter Goals Goal Patient Goal Type Associated Problems Recent Progress Patient-Stated? Author Blood Pressure < 140/90 Blood Pressure 130/68(2024 9:16 AM EDT) No RishisAlma Donovansa, PharmD Hemoglobin A1c < 7 Result Component 6.2( 1:26 PM EDT) No RishisJing Donovan, PharmD documented as of this encounter Visit Diagnoses Not on filedocumented in this encounter Additional Health Concerns Assessment Noted Time PHQ-9 Depression Total Score: 14 023 9:40 AM EDT documented as of this encounter Care Teams Mine Development Engineer Relationship Specialty Start Date End Date Bobbi Ricks ANP 230 [place] [address] PCP - General Family Medicine 03/08/21 Jing Brooks PharmD 230 [place] [address] Pharmacist Internal Medicine 03/24/24 Lacho García MD [address] [place] [address] 3rd [place] [address] Cardiology 04/09/25 [employer] 10/02/24 documented as of this encounter
--- OUTSIDE RECORDS SUMMARY | 2025-05-24 08:54 | XMS_ITS | Encounter Summary ---
Author Organization [employer] Address [address] [place] [address] 7t [place] [address] Care Team Providers Care Dry Cell And Battery Assembler Name Role Phone Bobbi Ricks Primary Care Provider Jing Brooks PharmD Unavailable Lacho García MD Unavailable [phone] Encounter Details Date Type Department Care Team (Late st Contact Info) Description 08/14/2022 Orders Only [facility] CHC MED & PEDS [address] [place] [address] Ayse Barrientos LPN Social History Tobacco Use [...] Description 06/15/2025 11:00 AM EST Medication Management [facility] MEDICINE 230 [place] [address] Jing Brooks, PharmD 230 [place] [address] documented as of this encounter Visit Diagnoses Not on filedocumented in this encounter Care Teams Dry Cell And Battery Assembler Relationship Specialty Start Date End Date Bobbi Ricks ANP 230 [place] [address] PCP - General Family Medicine 03/08/21 Jing Brooks, Julia [address] [place] [address] Pharmacist Internal Medicine 03/24/24 Lacho García MD [address] [place] [address] 3rd [place] [address] Cardiology 04/09/25 [facility] 10/02/24 documented as of this encounter
--- OUTSIDE RECORDS SUMMARY | 2025-05-24 08:54 | XMS_ITS | Encounter Summary ---
Author Organization [employer] Address 75 [facility] 7t [place] [address] Care Team Providers Care Architectural Sales Consultant Name Role Phone Bobbi Ricks Primary Care Provider [phone] Jing Brooks PharmD Unavailable [phone] Lacho García MD Unavailable [phone] Reason for Visit * Reason Onset Date Comments Hospital Follow-up 11/29/2023 Encounter Details Date Type Department Care Team (Late st Contact Info) Description 11/29/[address] [facility] MEDICINE 230 [place] [address] Bobbi Ricks ANP 230 [place], [place] [phone] Hospital Follow-up Social History Tobacco Use Types [...] a HDF f/u after recent admission to [facility] for MT on 11/26/23. Pt is stable [...] from pt requesting a HDF appt. Hospital: [facility] Date of admission: 11/25 Discharge date: 11/28 Diagnosed: Acute kidney injury documented in this encounter Plan of Treatment Upcoming Encounters Date Type Department Care Team (Late st Contact Info) Description 06/15/2025 11:00 AM EST Medication Management [facility] MEDICINE 230 [place] [address] Jing Brooks PharmD 230 [place] [address] documented as of this encounter Goals Goal [...] documented as of this encounter Care Teams Architectural Sales Consultant Relationship Specialty Start Date End Date Bobbi Ricks ANP 230 [place] [address] PCP - General Family Medicine 03/08/21 Jing Brooks PharmD [address] [place] [address] Pharmacist Internal Medicine 03/24/24 Lacho García MD [address] [place] [address] 3rd [place] [address] Cardiology 04/09/25 [employer] 10/02/24 documented as of this encounter
--- OUTSIDE RECORDS SUMMARY | 2025-05-24 08:54 | XMS_ITS | Encounter Summary ---
Author Organization [employer] Address [address] [place] [address] 7t [place] [address] Care Team Providers Care Primary Teacher Name Role Phone Bobbi Ricks Primary Care Provider [phone] Jing Brooks PharmD Unavailable [phone] Lacho García MD Unavailable [phone] Reason for Visit * Reason Onset Date Comments Appointment Request 10/29/2022 Encounter Details Date Type Department Care Team (Late st Contact Info) Description 10/29/2022 Telephone [facility] MEDICINE [address] [place] [address] Bobbi Ricks ANP 230 [place] [address] Appointment Request Social History Tobacco Use Types [...] Gil - 10/29/2022 10:38 AM EDT Tc from Catherine with [facility] requesting an appt with provider. Bridge Gang Worker tried booking but provider has nothing available at this time. Please contact pt at [phone] Surinamese Speaker documented in this encounter Plan of Treatment Upcoming Encounters Date Type Department Care Team (Late st Contact Info) Description 06/15/2025 11:00 AM EST Medication Management [facility] MEDICINE [address] [place] [address] Jing Brooks, PharmD 230 [place] [address] documented as of this encounter Visit Diagnoses Not on filedocumented in this encounter Care Teams Primary Teacher Relationship Specialty Start Date End Date Bobbi Ricks ANP [address] [place] [address] PCP - General Family Medicine 03/08/21 Jing Brooks, PharmD [address] [place] [address] Pharmacist Internal Medicine 03/24/24 Lacho García MD [address] [place] [address] 3rd [place] [address] Cardiology 04/09/25 [employer] 10/02/24 documented as of this encounter
--- OUTSIDE RECORDS SUMMARY | 2025-05-24 08:54 | XMS_ITS | Encounter Summary ---
Author Organization [employer] Address 75 [facility] 7t [place] [address] Care Team Providers Care Mold Setter Name Role Phone Bobbi Ricks Primary Care Provider [phone] Jing Brooks PharmD Unavailable [phone] Lacho García MD Unavailable [phone] Reason for Visit * Reason Comments Med Refill Encounter Details Date Type Department Care Team (Late st Contact Info) Description 06/23/2024 Refill [facility] MED & PEDS [address] [place], [place] [phone] Bobbi Ricks ANP [address] [place] [address] Mixed hyperlipidemia Social History Tobacco Use Types [...] Description 06/15/2025 11:00 AM EST Medication Management [facility] MEDICINE [address] [place] [address] Jing Brooks PharmD [address] [place] [address] documented as of this encounter Goals Goal [...] documented as of this encounter Care Teams Mold Setter Relationship Specialty Start Date End Date Bobbi Ricks ANP [address] [place] [phone] PCP - General Family Medicine 03/08/21 Jing Brooks, PharmD [address] [place] [phone] Pharmacist Internal Medicine 03/24/24 Lacho García MD [address] [place] [address] Drive 3rd [place] [address] Cardiology 04/09/25 [employer] 10/02/24 documented as of this encounter
--- OUTSIDE RECORDS SUMMARY | 2025-05-24 08:54 | XMS_ITS | Encounter Summary ---
Author Organization [employer] Address [address] [place] [address] 7t [place] [address] Care Team Providers Care Rugby Union Footballer Name Role Phone Bobbi Ricks ELAINA Primary Care Provider [phone] Jing Brooks PharmD Unavailable [phone] Lacho García MD Unavailable [phone] Encounter Details Date Type Department Care Team ([facility] Contact Info) Description 10/02/2022 Orders Only [facility] CHC MED & PEDS [address] [place], [place] [phone] Ayse Barrientos LPN Social History Tobacco Use [...] Description 06/15/2025 11:00 AM EST Medication Management [facility] MEDICINE 230 [place], [place] [phone] Jing Brooks, PharmD 230 [place], [place] [phone] documented as of this encounter Visit Diagnoses Not on filedocumented in this encounter Care Teams Rugby Union Footballer Relationship Specialty Start Date End Date Bobbi Ricks ANP [address] [place] [address] PCP - General Family Medicine 03/08/21 Jing Brooks PharmD 230 [place] [address] Pharmacist Internal Medicine 03/24/24 Lacho García MD [address] [place] [address] 3rd [place] [address] Cardiology 04/09/25 [employer] 10/02/24 documented as of this encounter
--- OUTSIDE RECORDS SUMMARY | 2025-05-24 08:54 | XMS_ITS | Encounter Summary ---
Author Organization [employer] Address [address] [facility] 7t [place] [address] Care Team Providers Care Field Liability Generalist Name Role Phone Bobbi Ricks ELAINA Primary Care Provider [phone] Jing Brooks PharmD Unavailable [phone] Lacho García MD Unavailable [phone] Reason for Visit * Reason Comments Med Refill Encounter Details Date Type Department Care Team (Late st Contact Info) Description 03/23/[address] [facility] MEDICINE [address] [place] [address] Jing Brooks, PharmD 230 [place], [place] [phone] Type 2 diabetes mellitus with hyperlipidemia (CMS/HCC) ([facility]/HCC) Social History Tobacco Use Types Packs/Day Years [...] 11:00 AM EST Medication Management [facility] MEDICINE [address] [place] [address] Jing Brooks PharmD [address] [place] [address] documented as of this encounter Goals Goal [...] documented as of this encounter Care Teams Field Liability Generalist Relationship Specialty Start Date End Date Bobbi Ricks ANP [address] [place] [address] PCP - General Family Medicine 03/08/21 Jing Brooks PharmD [address] [place] [address] Pharmacist Internal Medicine 03/24/24 Lacho García MD [address] [place] [address] 3rd [place] [address] Cardiology 04/09/25 [employer] 10/02/24 documented as of this encounter
== END 2025-05-24 10:00 | disposition home or self-care (01) ==
LOC: HO.HSM 08:34
PROVIDERS: PCP Nurse Practitioner Primary Care; Visit Provider Nurse Practitioner
DX: M21.379 Foot drop, unspecified foot (principal); M21.372 Foot drop, left foot
CPT/HCPCS: 99204

== ENCOUNTER → 2025-05-24 08:33 | Outpatient (BNVA) | payer OTHER, SELFPAY | PROVIDERS: PCP Nurse Practitioner Primary Care; Visit Provider Nurse Practitioner | DX: M21.372 Foot drop, left foot (principal); E11.40 Type 2 diabetes mellitus with diabetic neuropathy, unspecified | CPT/HCPCS: 99202 ==

== ENCOUNTER 2025-06-08 10:02 | Outpatient (AMB) | payer OTHER, SELFPAY ==
[2025-06-08 10:27] VITALS: BMI 23.7
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
--- OUTSIDE RECORDS SUMMARY | 2025-06-08 11:29 | XMS_ITS | Encounter Summary ---
Author Organization [employer] Address 75 [facility] 7t [place] [address] Care Team Providers Care Emergency Room Rn Name Role Phone Bobbi Ricks Primary Care Provider [phone] Jing Brooks PharmD Unavailable [phone] Lacho García MD Unavailable [phone] Encounter Details Date Type Department Care Team ([facility] Contact Info) Description 12/21/2022 Orders Only [facility] CHC MED & PEDS [address] [place], [place] [phone] Ayse Barrientos LPN Social History Tobacco Use [...] Department Care Team ([facility] Contact Info) Description 06/15/2025 11:00 AM EST Medication Management [facility] MEDICINE 230 [place], [place] [phone] Jing Brooks PharmD 230 [place] [address] documented as of this encounter Visit Diagnoses Not on filedocumented in this encounter Additional Health Concerns Assessment Noted Time PHQ-9 Depression Total Score: 14 023 9:40 AM EDT documented as of this encounter Care Teams Emergency Room Rn Relationship Specialty Start Date End Date Bobbi Ricks ANP 230 [place] [address] PCP - General Family Medicine 03/08/21 Jing Brooks PharmD [address] [place] [address] Pharmacist Internal Medicine 03/24/24 Lacho García MD [address] [place] [address] 3rd [place] [address] Cardiology 04/09/25 [employer] 10/02/24 documented as of this encounter
--- OUTSIDE RECORDS SUMMARY | 2025-06-08 11:29 | XMS_ITS | Data Portability ---
Author Organization [employer] [facility] [place] [facility] Address [address] [place] [address] Care Team Providers Care Ship'S Cook Name Role Phone ALIYAH GILLIAM Primary Care Provider [phone] HIM CCA OTHER Assessment Encounter Date Assessment [...] sugar was high today at 350. VSS. Tap Puller on site reports no acute distress. POC [...] Lab BMP, serum or plasma 2024 025 [facility] Medical [facility], [address] [place] [address], [id number] 5 19:10:10 BMP, serum or plasma 2023 024 [facility], [address] [place] [address], [id number] 4 18:27:34 hemoglobin + hematocrit, blood 2023 024 [facility], [address] [place] [address], [id number] 4 18:28:18 Referral None recorded. Procedures None recorded. Surgeries None recorded. Imaging electrocard iogram 2023 024 [facility], [address] [place] [address], [id number] 4 18:26:51 Medication Orders cyclobenzap rine 5 mg tablet 2024 025 [facility], [address] [place] [address], [id number], 5 12:13:20 ketorolac 15 mg/mL injection solution 2024 025 [facility], [address] [place] [address], [id number], 5 16:50:58 ketorolac 15 mg/mL injection solution 2023 024 [facility], [address] [place] [address], [id number], 4 18:21:13 sodium chloride 0.9 % intravenous solution 2023 024 [facility], [address] [place], [place], [id number], 18:21:13 metoclopram amanda 5 mg/mL injection solution 2023 024 [facility], [address] [place], [place], [id number], 18:21:13 Patient TargetsNo targets recorded. Patient InstructionsNo instructions recorded. Reason for Referral None Reported. Results Created Date Observation Date Name Description Value Unit Range Abnormal Flag Note LastModifiedBy Organization Detail LastModifiedTime 12/20/1912/20/2023 hemog lobin + hemat ocrit , blood Hemoglobin 12.5 Not Available [address], [address] [place] [address] 12/20/2023 18:27:51 12/20/19 24 12/20/2023 hemog lobin + hemat ocrit , blood Hematocrit 37 Not Available [address], [address] 12/20/2023 18:27:51 12/20/1912/20/2023 BMP, serum or plasm a BUN 15 Not Available [facility] [address], [address] 12/20/2023 17:47:01 12/20/19 24 12/20/2023 BMP, serum or plasm a Ca 1.15 Not Available [facility] [address], [address] 12/20/2023 17:47:01 12/20/19 24 12/20/2023 BMP, serum or plasm a CI- 108 Not Available [facility] [address], [address] 12/20/2023 17:47:01 12/20/1912/20/2023 BMP, serum or plasm a CRE 1.22 Not Available [facility] [address], [address] 12/20/2023 17:47:01 12/20/19 24 12/20/2023 BMP, serum or plasm a GLU 193 Not Available [facility] [address], [address] 12/20/2023 17:47:01 12/20/19 24 12/20/2023 BMP, serum or plasm a K+ 5.4 Not Available [facility] [address], [address] 12/20/2023 17:47:01 12/20/19 24 12/20/2023 BMP, serum or plasm a Na+ 143 Not Available [facility] [address], [address] [place] [address] 12/20/2023 17:47:01 12/20/19 24 12/20/2023 BMP, serum or plasm a tCO2 26 Not Available [facility] [address], [address] [place] [address] 12/20/2023 17:47:01 12/20/19 24 12/20/2023 elect neptali balderrama am No observ ation record ed. gbaci [address], [address] 12/20/2023 18:26:50 Result Notes None recorded. Medical [...] Available Not Available No t Available [employer] Dunreith Lite kit USE DIRECTED TO TEST BLOOD [...] active Not Available Not Available Not Available [employer] G6 Transmitter device USE DIRECTED active Not [...] Available No t Available [employer] Yanni 3 Ringling USE DIRECTED TO TEST BLOOD SUGAR active [...] % 98 % 170/70 mm[Hg] Not Available [employer] - production 4 17:57:34 Date Recorded Respiratory rate Body temperature Heart rate Oxygen saturation Oxygen saturation in Arterial blood by Pulse oximetry Systolic And Diastolic Provider Name and Address Organization Details Last Updated DateTime 4 20 /min 98.5 [degF] 56 /min 100 % 100 % 216/83 mm[Hg] Not Available [employer] - production 4 17:35:22 Date Recorded Body temperature Respiratory rate Heart rate Oxygen saturation Oxygen saturation in Arterial blood by Pulse oximetry Systolic And Diastolic Provider Name and Address Organization Details Last Updated DateTime 5 98.2 [degF] 16 /min 66 /min 98 % 98 % 133/70 mm[Hg] Not Available [employer] - [facility] 5 16:36:03 Social History None recorded. Functional Status None recorded. Mental Status None recorded. Family History Nothing Reported. Medical History No medical history recorded. Past Encounters Encounter ID Performer Location Encounter Start Date Encounter Closed Date Diagnosis/Indication Diagnosis SNOMED-CT Code Diagnosis ICD10 Code Diagnosis IMO Codes Diagnosis Note [id number] Radha Lindsay MD [facility] [address] [place] [phone] 12/13/2023 14:33:21 03/24/2024 14:12:34 Hyperglycemia 17341764 R73.9 Nocturia 521765479 R35.1 [id number] TONY NEUMANN MD Main - [facility] [address] [place] [phone] 12/20/2023 17:35:20 12/20/2023 21:28:56 Headache 73692897 R51.9 Evaluation in the field was performed by my hearing care professional colleague, as noted above, I provided real-time [...] HR <50, N/V or any other concerns. Blood pres sure above reference range 59089028 R03.0 Pt had skipped the dose of [...] BP and ongoing bradycardi a. BP before hearing care professional left 196/70. Headache has resolved. Red flags discussed with the patient Bradycardia 10371121 R00 .1 ECG with sinus bradicardi a. [...] eating anything in the morning, including coffee. [id number] TONY NEUMANN MD [facility] ED Medical [address] [phone] 01/07/2025 16:36:00 01/07/2025 19:59:11 Acute low back pain 442495805 M54.50 [id number] The evaluation in the field was performed by my hearing care professional colleague, as noted above, I provided real-time [...] ant use or gastrointe stinal bleeding.P er hearing care professional report, the pain is reproducib le on [...] left lower lumbar region with a palpable k not-like structure under the skin. No overlying erythema or fluctuance . Full range of motion in the lower extremitie s with no neurologic al deficits.B MP: Na 143, K 3.8, iCa 1.21, Cl 108, TCO 25.2, Glucose 195, Lactate 1.6Cr 1.29 (baseline 1.22 on 12/20/2023) , BUN 17Hct 45%, Hb 15.2 g/dL (corrected from 25.2 likely a typo)Rohit gies: Reviewed Impression :Localized left lumbar pain, [...] Denson Member ID Guarantor Name 01/07/2025 1 [facility] - DOS ON OR AFTER 2022 - DUAL ELIGIBLE - USP OPTIONS AND ONE CARE (MEDICARE REPLACEMENT/AD VANTAGE - HMO) Steve Caceres [id number] Steve Caceres Notes Date Note Type Note [...] RN calling inSpanish speaking only memberJose RN Tap Puller POC Test Results from Heather Cotto Blood Glucose Measurement (1) [17:59] Blood Glucose: 461 mg/dL iSTAT Chem8+ (2) [17:59] Na: 138 mEq/L K: 4.8 mEq/L Cl: 105 mEq/L iCa: 1.22 mmol/L TCO2: 26 mmol/L Glu: 358 mg/dL BUN: 27 mg/dL Crea: 1.3 mg/dL Hct: 34 % Hb: 11.6 g/dL A ...................... ...................... ...................... ...................... ...................... ...................... ......... Tap Puller Note From Heather Cotto: Community Tap Puller Sacha Cotto SC6 dispatched to a [facility] for a 68 yom C/O pain on [...] tenderness. Blood sugar 461. Urine dip acquired. [facility] consulted; #20 IV placed in [...] ...................... ...................... ......... Disposition: Lila Lindsay MD [address] [place] [address],[address], [place], [address], [employer] 03/23/2024 19:41:30 12/20/2023 text/html ROS as noted in the HPI HPI: [facility] RN called with concerns of [...] any additional information to process this visit. Tap Puller POC Test Results from [facility] EKG (1) [17:51] EKG test performed. Attachments uploaded as part of this test result can be found under Documents section. Tap Puller POC Test Results from [facility] epoc (1) [18:13] pH: 7.372 pH [...] ...................... ...................... ...................... ...................... ...................... ...................... ......... Tap Puller Note From [facility]: 68 y/o male found ambulatory on scene presenting with a c/c of a headache. Pt presented awake and alert x4 with a patent airway, adequate respirations and a strong radial pulse. GCS 15. Skin warm and dry. The pt was Kiswahili speaking only. The pt reported a 6/10 [...] diarrhea, fever, chills, dizziness or lightheadedness. The [facility] was consulted and ordered POC [...] ...................... ......... Disposition: Lila TONY NEUMANN MD [address] [place] [address],[address], [place], [address], [employer] 12/20/2023 19:23:39 01/07/2025 text/html ROS as noted in the [facility] CRC Nurse Triage Notes (Maryam Galvan): Reason [...] to seek emergency care. Nidia Galvan RN Tap Puller Organization Information for Jori Patel Business Legal Name: [facility] Transportation Address: [address] [place] [address], [place] Alexandra [address], Psychology Fellow: Huber BROOKS No.: [id number] Tap Puller POC Test Results from Jori Patel [facility] (16:58:03) pH: 7.374 pH units pCO2: 45 mmHg pO2: 33.4 mmHg Na: 143 mmol/L K: 3.8 mmol/L iCa: 1.21 mmol/L Cl: 108 mmol/L TCO2: 25.2 mEq/L Hct: 45 % Hb: 25.2 g/dL Glu: 195 mg/dL Lac: 1.6 mmol/L Cr: 1.29 mg/dL BUN: 17 mg/dL A mmol/L HCO3: 26.2 mmol/L ...................... ...................... ...................... ...................... ...................... ...................... ......... Tap Puller Note From Jori Patel: Pt is a 69 yom, Kiswahili speaking only. 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 Pt experiences pain on palpation with area of tenderness in Left lower lumbar area and on ROM. [facility] contacted and epoc results confirmed with [facility]. [facility] approved 15mg IV toradol. Rx to pharmacy. Red flags reviewed with pt [facility] Lab Orders: BMP, serum or plasma: Performed [facility] Medication Orders: ketorolac 15 mg/mL injection solution: Administered ...................... ...................... ...................... ...................... ...................... ...................... ......... [facility] Consulted: Tony Neumann ...................... ...................... ...................... ...................... ...................... ...................... ......... Disposition: Fulfilled TONY NEUMANN MD [address] [facility],[address], [place], [address], [employer], [place] 01/07/2025 19:05:37
--- OUTSIDE RECORDS SUMMARY | 2025-06-08 11:29 | XMS_ITS | Encounter Summary ---
Author Organization [employer] Address [address] [place] [address] 7t [place] [address] Care Team Providers Care Allied Health Teacher Name Role Phone Bobbi Ricks Primary Care Provider Jing Brooks PharmD Unavailable Lacho García MD Unavailable [phone] Encounter Details Date Type Department Care Team (Late st Contact Info) Description 08/14/2022 Orders Only [facility] MED & PEDS [address] [place] [address] Ayse Barrientos LPN Social History Tobacco Use [...] Description 06/15/2025 11:00 AM EST Medication Management [facility] MEDICINE [address] [place] [address] Jing Brooks, PharmD [address] [place] [address] documented as of this encounter Visit Diagnoses Not on filedocumented in this encounter Care Teams Allied Health Teacher Relationship Specialty Start Date End Date Bobbi Ricks ANP [address] [place] [address] PCP - General Family Medicine 03/08/21 Jing Brooks, Julia [address] [place] [phone] Pharmacist Internal Medicine 03/24/24 Lacho García MD [address] [place] [address] 3rd [place] [address] Cardiology 04/09/25 [employer] 10/02/24 documented as of this encounter
--- OUTSIDE RECORDS SUMMARY | 2025-06-08 11:29 | XMS_ITS | Encounter Summary ---
Author Organization [employer] Address [address] [facility] 7t [place] [address] Care Team Providers Care Tooth Grinder Name Role Phone Bobbi Ricks Primary Care Provider [phone] Jing Brooks PharmD Unavailable [phone] Lacho García MD Unavailable [phone] Encounter Details Date Type Department Care Team (Late st Contact Info) Description 04/05/2025 Telephone [facility] MEDICINE [address] [place] [address] Bobbi Ricks ANP [address] [place] [address] Social History Tobacco Use Types Packs/Day Years [...] Description 06/15/2025 11:00 AM EST Medication Management [facility] MEDICINE [address] [place] [address] RishisJing Escobar, PharmD [address] [place] [address] documented as of this encounter Goals Goal [...] documented as of this encounter Care Teams Tooth Grinder Relationship Specialty Start Date End Date Bobbi Ricks ANP [address] [place] [address] PCP - General Family Medicine 03/08/21 Piers-Cerda, Jing, PharmD [address] [place] [address] Pharmacist Internal Medicine 03/24/24 Lacho García MD [address] [place] [address] 3rd [place] [address] Cardiology 04/09/25 [email or web address] 10/02/24 documented as of this encounter
--- OUTSIDE RECORDS SUMMARY | 2025-06-08 11:29 | XMS_ITS | Encounter Summary ---
Author Organization [employer] [facility] Address [address] [place] [address] 7t [place] [address] Care Team Providers Care Translator And Interpreter Name Role Phone Bobbi Ricks Primary Care Provider [phone] Jing Brooks PharmD Unavailable Lacho García MD Unavailable [phone] Reason for Visit * Reason Comments Med Refill Encounter Details Date Type Department Care Team (Late st Contact Info) Description 02/14/2023 Refill [facility] MEDICINE [address] [place] [address] Bobbi Ricks ANP [address] [place] [address] Hypertension associated with diabetes (CMS/HCC) Social History [...] 11:00 AM EST Medication Management [facility] MEDICINE [address] [place] [address] Jing Brooks, PharmD [address] [place] [address] documented as of this encounter Visit Diagnoses Diagnosis Hypertension associated with diabetes (HCC) Unspecified essential hypertension documented in this encounter Additional Health Concerns Assessment Noted Time PHQ-9 Depression Total Score: 14 023 9:40 AM EDT documented as of this encounter Care Teams Translator And Interpreter Relationship Specialty Start Date End Date Bobbi Ricks ANP [address] [place] [address] PCP - General Family Medicine 03/08/21 Jing Brooks, Julia [address] [place] [phone] Pharmacist Internal Medicine 03/24/24 Lacho García MD [address] [place] [address] 3rd [place] [address] Cardiology 04/09/25 [email or web address] 10/02/24 documented as of this encounter
--- OUTSIDE RECORDS SUMMARY | 2025-06-08 11:29 | XMS_ITS | Encounter Summary ---
Author Organization [employer] Address [address] [facility] 7t [place] [address] Care Team Providers Care Mortgage Loan Processor Name Role Phone Bobbi Ricks ELAINA Primary Care Provider [phone] Jing Brooks PharmD Unavailable [phone] Lacho García MD Unavailable [phone] Reason for Visit * Reason Comments Med Refill Encounter Details Date Type Department Care Team (Late st Contact Info) Description 03/23/2025 Refill [facility] MEDICINE [address] [place] [address] Jing Brooks, PharmD [address] [place], [place] [phone] Type 2 diabetes mellitus with hyperlipidemia (CMS/HCC) ([facility]/HCC) Social History Tobacco Use Types Packs/Day Years [...] Description 06/15/2025 11:00 AM EST Medication Management [facility] MEDICINE [address] [place] [address] Jing Brooks PharmD [address] [place] [address] documented as of this encounter Goals Goal [...] documented as of this encounter Care Teams Mortgage Loan Processor Relationship Specialty Start Date End Date Bobbi Ricks ANP [address] [place] [address] PCP - General Family Medicine 03/08/21 Jing Brooks PharmD [address] [place] [address] Pharmacist Internal Medicine 03/24/24 Lacho García MD [address] [place] [address] 3rd [place] [address] Cardiology 04/09/25 [employer] 10/02/24 documented as of this encounter
--- OUTSIDE RECORDS SUMMARY | 2025-06-08 11:29 | XMS_ITS | Encounter Summary ---
Author Organization [employer] Address [address] [facility] 7t [place] [address] Care Team Providers Care Pack Mule Worker Name Role Phone Bobbi Ricks Primary Care Provider [phone] Jing Brooks PharmD Unavailable [phone] Lacho García MD Unavailable [phone] Reason for Visit * Reason Comments Med Refill Encounter Details Date Type Department Care Team (Late st Contact Info) Description 11/12/2023 Refill [facility] MEDICINE [address] [place] [address] Bobbi Ricks ANP [address] [place] [address] Essential hypertension Social History Tobacco Use Types [...] 11:00 AM EST Medication Management [facility] MEDICINE [address] [place] [address] Jing Brooks PharmD [address] [place] [address] documented as of this encounter Goals Goal [...] documented as of this encounter Care Teams Pack Mule Worker Relationship Specialty Start Date End Date Bobbi Ricks ANP [address] [place] [phone] PCP - General Family Medicine 03/08/21 Jing Brooks, PharmD [address] [place] [address] [phone] Pharmacist Internal Medicine 03/24/24 Lacho García MD [address] [place] [address] 3rd [place] [address] Cardiology 04/09/25 [employer] 10/02/24 documented as of this encounter
--- OUTSIDE RECORDS SUMMARY | 2025-06-08 11:29 | XMS_ITS | Encounter Summary ---
Author Organization [employer] Address [address] [facility] 7t [place] [address] Care Team Providers Care Relief Manager Name Role Phone Bobbi Ricks Primary Care Provider [phone] Jing Brooks PharmD Unavailable [phone] Lacho García MD Unavailable [phone] Reason for Visit * Reason Comments Med Refill Encounter Details Date Type Department Care Team (Late st Contact Info) Description 10/30/2023 Refill [facility] MED & PEDS [address] [place], [place] [phone] Bobbi Ricks ANP [address] [place] [address] Pain Social History Tobacco Use Types Packs/Day [...] 06/15/2025 11:[address] AM EST Medication [address] [facility] MEDICINE [address] [place] [address] Jing Brooks PharmD 230 [place] [address] documented as of this encounter Goals Goal [...] documented as of this encounter Care Teams Relief Manager Relationship Specialty Start Date End Date Bobbi Ricks ANP [address] [place] [address] [phone] PCP - General Family Medicine 03/08/21 Jing Brooks, PharmD [address] [place] [address] [phone] Pharmacist Internal Medicine 03/24/24 Lacho García MD [address] [place] [address] Drive 3rd [place] [address] Cardiology 04/09/25 [employer] 10/02/24 documented as of this encounter
--- OUTSIDE RECORDS SUMMARY | 2025-06-08 11:29 | XMS_ITS | Encounter Summary ---
Author Organization [employer] Address [address] [facility] 7t [place] [address] Care Team Providers Care Professor Of Industrial Technology Name Role Phone Bobbi Ricks Primary Care Provider [phone] Jing Brooks PharmD Unavailable [phone] Lacho García MD Unavailable [phone] Reason for Visit * Reason Comments Med Refill Encounter Details Date Type Department Care Team (Late st Contact Info) Description 11/01/2023 Refill [facility] & PEDS [address] [place], [place] [phone] Bobbi Ricks ANP [address] [place] [address] Pain Social History Tobacco Use Types Packs/Day [...] 11:00 AM EST Medication Management [facility] MEDICINE [address] [place] [address] Jing Brooks PharmD [address] [place] [address] documented as of this encounter Goals Goal [...] documented as of this encounter Care Teams Professor Of Industrial Technology Relationship Specialty Start Date End Date Bobbi Ricks ANP [address] [place] [phone] PCP - General Family Medicine 03/08/21 Jing Brooks, PharmD [address] [place] [address] [phone] Pharmacist Internal Medicine 03/24/24 Lacho García MD [address] [place] [address] Drive 3rd [place] [address] Cardiology 04/09/25 [employer] 10/02/24 documented as of this encounter
--- OUTSIDE RECORDS SUMMARY | 2025-06-08 11:29 | XMS_ITS | Encounter Summary ---
Author Organization [employer] Address [address] [facility] 7t [place] [address] Care Team Providers Care Comic Book Designer Name Role Phone Bobbi Ricks Primary Care Provider [phone] Jing Brooks PharmD Unavailable [phone] Lacho García MD Unavailable [phone] Reason for Visit * Reason Onset Date Comments Hospital Follow-up 11/29/2023 Encounter Details Date Type Department Care Team (Late st Contact Info) Description 11/29/2023 Telephone [facility] MEDICINE [address] [place] [address] Bobbi Ricks ANP 230 [place], [place] [phone] Hospital Follow-up Social History Tobacco Use Types [...] a HDF f/u after recent admission to [facility] for [place] on 11/26/23. Pt is stable [...] from pt requesting a HDF appt. Hospital: [facility] Date of admission: 11/25 Discharge date: 11/28 Diagnosed: Acute kidney injury documented in this encounter Plan of Treatment Upcoming Encounters Date Type Department Care Team (Late st Contact Info) Description 06/15/2025 11:00 AM EST Medication Management [facility] MEDICINE [address] [place] [address] Jing Brooks PharmD [address] [place] [address] documented as of this encounter Goals Goal [...] documented as of this encounter Care Teams Comic Book Designer Relationship Specialty Start Date End Date Bobbi Ricks ANP [address] [place] [address] PCP - General Family Medicine 03/08/21 Jing Brooks PharmD [address] [place] [phone] Pharmacist Internal Medicine 03/24/24 Lacho García MD [address] [place] [address] 3rd [place] [address] Cardiology 04/09/25 [employer] 10/02/24 documented as of this encounter
--- OUTSIDE RECORDS SUMMARY | 2025-06-08 11:29 | XMS_ITS | Encounter Summary ---
Author Organization [employer] Address 75 [facility] 7t [place] [address] Care Team Providers Care Cardiothoracic Physiotherapist Name Role Phone Bobbi Ricks Primary Care Provider [phone] Jing Brooks PharmD Unavailable [phone] Lacho García MD Unavailable [phone] Reason for Visit * Reason Onset Date Comments Nurse Triage 06/04/2025 Encounter Details Date Type Department Care Team (Late st Contact Info) Description 06/04/2025 Telephone [facility] MED[facility]INE [address] [place] [address] Bobbi Ricks ANP [address] [place] [address] Nurse Triage Social History Tobacco Use Types [...] encounter Miscellaneous Notes * Telephone Encounter - Caty Enciso RN - 06/04/2025 4:36 PM EST Return call placed to S HUGO Alexander who confirmed that the pt did have a fall this past [place]. The pt did stumble but was able to break the fall with his knee. The right knee does have a slight bruise and contusion but minimal swelling and redness. Pt did not hit his head orany other part of the body. Pt is fully able to ambulate with no report of severe pain. Hui is not too concerned with the pt condition as of this report but had to inform PCP. Hui will call back if the pt worsens or requires a follow up. * Telephone Encounter - Lino Verma - 06/04/2025 4:15 PM EST Symptom: Fall Outcome: Schedule an appointment to be seen within 24 hours Reason: Caller denied all higher acuity questions The caller accepted this outcome. Contact hui Verma [facility] at [phone] documented in this encounter Plan of Treatment Upcoming Encounters Date Type Department Care Team (Late st Contact Info) Description 06/15/2025 11:00 AM EST Medication Management [facility] [address] [place] [address] Jing Brooks PharmD [address] [place] [address] documented as of this encounter Goals Goal [...] documented as of this encounter Care Teams Cardiothoracic Physiotherapist Relationship Specialty Start Date End Date Bobbi Ricks ANP [address] [place] [address] PCP - General Family Medicine 03/08/21 Jing Brokos PharmD [address] [place] [address] Pharmacist Internal Medicine 03/24/24 Lacho García MD [address] [place] [address] 3rd [place] [address] Cardiology 04/09/25 [email or web address] 10/02/24 documented as of this encounter
--- OUTSIDE RECORDS SUMMARY | 2025-06-08 11:29 | XMS_ITS | Encounter Summary ---
Author Organization [employer] [facility] Address [address] [place] [address] 7t [place] [address] Care Team Providers Care Senior Agricultural Assistant Name Role Phone Bobbi Ricks ELAINA Primary Care Provider [phone] iJng Brooks PharmD Unavailable [phone] Lacho García MD Unavailable [phone] Encounter Details Date Type Department Care Team (Late st Contact Info) Description 03/18/2023 Orders Only [facility] [address] [place] [address] Vj Tolbert [address] [place] [address] Social History Tobacco Use Types Packs/Day Years [...] Description 06/15/2025 11:00 AM EST Medication Management [facility] [address] [place] [address] Jing Brooks, PharmD [address] [place] [address] documented as of this encounter Visit Diagnoses Not on filedocumented in this encounter Additional Health Concerns Assessment Noted Time PHQ-9 Depression Total Score: 14 023 9:40 AM EDT documented as of this encounter Care Teams Senior Agricultural Assistant Relationship Specialty Start Date End Date Bobbi Ricks ANP [address] [place] [address] PCP - General Family Medicine 03/08/21 Jing Brooks PharmD [address] [place] [address] Pharmacist Internal Medicine 03/24/24 Lacho García MD [address] [place] [address] Drive 3rd [place] [address] Cardiology 04/09/25 Responsa 10/02/24 documented as of this encounter
--- OUTSIDE RECORDS SUMMARY | 2025-06-08 11:29 | XMS_ITS | Encounter Summary ---
Author Organization [employer] Address [address] [place] [address] 7t [place] [address] Care Team Providers Care Design Engineering Manager Name Role Phone Bobbi Ricks Primary Care Provider [phone] Jing Brooks PharmD Unavailable [phone] Lacho García MD Unavailable [phone] Reason for Visit * Reason Onset Date Comments Appointment Request 10/29/2022 Encounter Details Date Type Department Care Team (Late st Contact Info) Description 10/29/2022 Telephone [facility] MEDICINE [address] [place] [address] Bobbi Ricks ANP [address] [place] [address] Appointment Request Social History Tobacco Use Types [...] 10:38 AM EDT Tc from Catherine with [facility] requesting an appt with provider. Rn Recruitment tried booking but provider has nothing available at this time. Please contact pt at [phone] Latvian Speaker documented in this encounter Plan of Treatment Upcoming Encounters Date Type Department Care Team (Late st Contact Info) Description 06/15/2025 11:00 AM EST Medication Management [facility] MEDICINE [address] [place] [address] Jing Brooks, PharmD [address] [place] [address] documented as of this encounter Visit Diagnoses Not on filedocumented in this encounter Care Teams Design Engineering Manager Relationship Specialty Start Date End Date Bobbi Ricks ANP [address] [place] [address] PCP - General Family Medicine 03/08/21 Jing Brooks, PharmD [address] [place] [address] Pharmacist Internal Medicine 03/24/24 Lacho García MD [address] [place] [address] 3rd [place] [address] Cardiology 04/09/25 [email or web address] 10/02/24 documented as of this encounter
--- OUTSIDE RECORDS SUMMARY | 2025-06-08 11:29 | XMS_ITS | Encounter Summary ---
Author Organization [employer] Address 75 [facility] 7t [place] [address] Care Team Providers Care Utilities Operator Name Role Phone Bobbi Ricks ELAINA Primary Care Provider [phone] Jing Brooks PharmD Unavailable [phone] Lacho García MD Unavailable [phone] Reason for Visit * Reason Comments Med Refill Encounter Details Date Type Department Care Team (Late st Contact Info) Description 04/28/2025 Refill [facility]INE [address] [place] [address] Jing Brooks, PharmD [address] [place], [place] [phone] Type 2 diabetes mellitus with hyperlipidemia (HCC) [...] Description 06/15/2025 11:00 AM EST Medication Management [facility] [address] [place] [address] Jing Brooks PharmD [address] [place] [address] documented as of this encounter Goals Goal [...] documented as of this encounter Care Teams Utilities Operator Relationship Specialty Start Date End Date Bobbi Ricks ANP [address] [place] [address] PCP - General Family Medicine 03/08/21 Jing Brooks PharmD [address] [place] [address] Pharmacist Internal Medicine 03/24/24 Lacho García MD [address] [place] [address] 3rd [place] [address] Cardiology 04/09/25 [email or web address] 10/02/24 documented as of this encounter
--- OUTSIDE RECORDS SUMMARY | 2025-06-08 11:29 | XMS_ITS | Encounter Summary ---
Author Organization [employer] Address 75 [facility] 7t [place] [address] Care Team Providers Care Recycling Crew Supervisor Name Role Phone Bobbi Ricks Primary Care Provider [phone] Jing Brooks PharmD Unavailable [phone] Lacho García MD Unavailable [phone] Encounter Details Date Type Department Care Team (Late st Contact Info) Description 10/21/2023 Orders Only [facility] MEDICINE [address] [place] [address] Bobbi Ricks ANP [address] [place] [address] Social History Tobacco Use Types Packs/Day Years [...] 11:00 AM EST Medication Management [facility] MEDICINE [address] [place] [address] Jing Brooks PharmD [address] [place] [address] documented as of this encounter Goals Goal [...] documented as of this encounter Care Teams Recycling Crew Supervisor Relationship Specialty Start Date End Date Bobbi Ricks ANP [address] [place] [address] PCP - General Family Medicine 03/08/21 Jing Brooks PharmD [address] [place] [address] Pharmacist Internal Medicine 03/24/24 Lacho García MD [address] [place] [address] 3rd [place] [address] Cardiology 04/09/25 [employer] 10/02/24 documented as of this encounter
--- OUTSIDE RECORDS SUMMARY | 2025-06-08 11:29 | XMS_ITS | Encounter Summary ---
Author Organization [employer] Address [address] [place] [address] 7t [place] [address] Care Team Providers Care Planetarium Sky Show Technician Name Role Phone oBbbi Ricks ELAINA Primary Care Provider [phone] Jing Brooks PharmD Unavailable [phone] Lacho García MD Unavailable [phone] Encounter Details Date Type Department Care Team ([facility] Contact Info) Description 10/02/2022 Orders Only [facility] & PEDS [address] [place], [place] [phone] Ayse Barrientos LPN Social History Tobacco Use [...] [facility] [address] [place], [place] [phone] Jing Brooks, PharmD [address] [place], [place] [phone] documented as of this encounter Visit Diagnoses Not on filedocumented in this encounter Care Teams Planetarium Sky Show Technician Relationship Specialty Start Date End Date Bobbi Ricks ANP [address] [place] [address] PCP - General Family Medicine 03/08/21 Jing Brooks PharmD [address] [place] [address] Pharmacist Internal Medicine 03/24/24 Lacho García MD [address] [place] [address] 3rd [place] [address] Cardiology 04/09/25 [employer] 10/02/24 documented as of this encounter
--- OUTSIDE RECORDS SUMMARY | 2025-06-08 11:29 | XMS_ITS | Encounter Summary ---
Author Organization [employer] Address 75 [facility] 7t [place] [address] Care Team Providers Care Scientific Specialist Name Role Phone Bobbi Ricks Primary Care Provider [phone] Jing Brooks PharmD Unavailable [phone] Lacho García MD Unavailable [phone] Reason for Visit * Reason Comments Med Refill Encounter Details Date Type Department Care Team (Late st Contact Info) Description 06/23/2024 Refill [facility] MED & PEDS [address] [place], [place] [phone] Bobbi Ricks ANP [address] [place] [address] Mixed hyperlipidemia Social History Tobacco Use Types [...] 11:00 AM EST Medication Management [facility] [address] [place] [address] Jing Brooks PharmD [address] [place] [address] documented as of this encounter Goals Goal [...] documented as of this encounter Care Teams Scientific Specialist Relationship Specialty Start Date End Date Bobbi Ricks ANP [address] [place] [phone] PCP - General Family Medicine 03/08/21 Jing Brooks, PharmD [address] [place] [address] [phone] Pharmacist Internal Medicine 03/24/24 Lacho García MD [address] [place] [address] Drive 3rd [place] [address] Cardiology 04/09/25 [employer] 10/02/24 documented as of this encounter
--- OUTSIDE RECORDS SUMMARY | 2025-06-08 11:29 | XMS_ITS | Clinical Summary ---
Author Organization [employer] Address [address] [place] [address] 7t [place] [address] Care Team Providers Care Book Jacket Cover Machine Operator Name Role Phone Bobbi Ricks ELAINA Primary Care Provider [phone] Jing Brooks PharmD Unavailable [phone] Lacho García MD Unavailable [phone] Allergies Active Allergy Reactions Criticality Noted Date [...] 18 g 025 2025 Active Continuous Glucose Health Services Administrator (FreeStyle Yanni 3 [place]) deviceIndications :Type 2 diabetes mellitus with hyperlipidemia (HCC) 1 each Use as directed. 1 each Active Continuous Glucose Sensor (FreeStyle Yanni 3 Plus Sensor) miscIndications:T ype 2 diabetes mellitus with hyperlipidemia (HCC) 1 each Use as directed. 2 each Active glucose blood (FreeStyle Precision Kameron Test) test stripIndications: Type 2 diabetes mellitus with hyperlipidemia (HCC) Test blood sugar 3 times daily 100 each 2025 Active BD Pen Needle Montse U/F [...] to 25 doses. 30 tablet Active Multiple Vitamins-Minerals (CertaVite/Antiox idants) tabletIndications :Anorexia TAKE 1 TABLET BY MOUTH EVERY EVENING 90 tablet 3 Active atenolol (Tenormin) 100 MG tabletIndications :Essential hypertension TAKE 1/2 TABLET BY MOUTH EVERY EVENING 45 tablet 3 Active tamsulosin (Flomax) 0.4 MG 24 hr capsuleIndication s:Benign prostatic hyperplasia, unspecified whether lower urinary tract symptoms present TAKE 1 CAPSULE BY MOUTH EVERY EVENING 90 capsule 3 Active TRUEplus Lancets 33G miscIndications:T ype 2 diabetes mellitus with hyperlipidemia (HCC) TEST BLOOD SUGAR THREE TIMES DAILY 100 each Active gabapentin (Neurontin) 300 MG capsuleIndication s:Pain TAKE 2 CAPSULES BY MOUTH TWICE DAILY IN THE MORNING AND AT BEDTIME 360 capsule 2 Active levothyroxine (Synthroid, Levoxyl) 125 MCG tablet TAKE 1 TABLET BY MOUTH EVERY MORNING 90 tablet 3 Active ofloxacin (Ocuflox) 0.3 % ophthalmic solution PLACE 1 DROP IN THE RIGHT EYE FOUR TIMES DAILY STARTING THE DAY AFTER YOUR SURGERY AND CONTINUE Active prednisoLONE acetate (Pred-Forte) 1 % ophthalmic suspension PLACE 1 DROP IN THE RIGHT EYE FOUR TIMES DAILY STARTING THE DAY AFTER YOUR SURGERY AND CONTINUE Active hydrALAZINE (Apresoline) 50 MG tabletIndications :Essential hypertension TAKE 1 TABLET BY MOUTH THREE TIMES DAILY IN THE MORNING, EVENING, AND BEDTIME 270 tablet 1 Active Jardiance 25 MGIndications:Typ e 2 diabetes mellitus with hyperlipidemia (HCC),Hypertensiv e renal disease TAKE 1 TABLET BY MOUTH EVERY MORNING 90 tablet 3 Active ammonium lactate (Lac-Hydrin) 12 % lotionIndications :Type 2 diabetes mellitus with hyperlipidemia (HCC),Dry skin APPLY TOPICALLY TO AFFECTED AREA(S) DAILY NEEDED FOR DRY SKIN 225 g 11 Active Menthol-Methyl Salicylate (Muscle Rub) 10-15 % creamIndications: Low back pain at multiple sites APPLY 2 GRAMS TOPICALLY TO AFFECTED AREA(S) TWICE DAILY NEEDED FOR PAIN BACK 85 g 1 Active lisinopril 10 MG tabletIndications :Essential hypertension Take 1 tablet (10 mg) by mouth Once per day. 90 tablet Active atropine 1 % ophthalmic solution Active oxyCODONE-acetami nophen (Percocet) 5-325 MG tablet Take 1 tablet by mouth every 6 (six) hours if needed for pain. Active semaglutide (Ozempic, 1 MG/DOSE,) 4 MG/3ML solution pen-injectorIndic ations:Type 2 diabetes mellitus with hyperglycemia, without long-term current use of insulin (HCC) Inject 1 mg under the skin 1 (one) time per week. 3 mL 3 025 Active D3 Super Strength 50 MCG (2000 UT) capsule TAKE 1 CAPSULE BY MOUTH EVERY MORNING 90 capsule 1 Active D3 Super Strength 50 MCG (2000 UT) capsule TAKE 1 CAPSULE BY MOUTH EVERY MORNING 90 capsule 1 025 2024 Discontinued Semaglutide, 2 MG/DOSE, (Ozempic, 2 MG/DOSE,) 8 MG/3ML solution pen-injectorIndic ations:Type 2 diabetes mellitus with hyperlipidemia (HCC) Inject 0.75 mL (2 mg) under the skin every 7 (seven) days. 3 mL 025 2024 Discontinued(D ose adjustment) Active Problems [...] Encounters Date Type Department Care Team Description 06/04/2025 Telephone [facility] MEDICINE [address] [place] [address] Bobbi Ricks ANP Nurse Triage 05/24/2025 Refill [facility] [address] [place] [address] Bobbi Ricks ANP 05/21/2025 Travel 05/11/2025 Telephone [facility] [address] [place] [address] Jing Brooks PharmD 04/28/2025 Travel 04/28/2025 Refill [facility] [address] [place] [address] Jing Brooks PharmD Type 2 diabetes mellitus with hyperlipidemia (HCC) 04/27/2025 Telephone [facility] [address] [place] [address] Bobbi Ricks ANP 04/09/2025 1:30 PM EDT Office Visit [facility] [address] [place] [address] Bobbi Ricks ANP Flatulence (Primary Dx); Type 2 diabetes mellitus with hyperlipidemia (CMS/HCC) (CMS/HCC); Locking finger joint; Hypertensive renal disease 04/09/2025 Travel 04/08/2025 Telephone [facility] [address] [place] [address] Bobbi Ricks ANP 04/05/2025 Refill [facility] [address] [place] [address] Bobbi Ricks ANP Essential hypertension 04/05/2025 Telephone [facility] [address] [place] [address] Bobbi Ricks ANP 04/02/2025 Patient Outreach [facility] [address] [place] [address] Bobbi Ricks ANP Pre-visit Planning (SDOH screening was completed on 10/19/2024) 03/24/2025 Refill [facility] [address] [place] [address] Bobbi Ricks ANP Type 2 diabetes mellitus with hyperlipidemia (CMS/HCC) (CMS/HCC); Dry skin; Low back pain at multiple sites 03/24/2025 Refill [facility] [address] [place] [address] Bobbi Ricks ANP Low back pain at multiple sites 03/23/2025 Travel 03/23/2025 Refill [facility] [address] [place] [address] Jing Brooks PharmD Type 2 diabetes mellitus with hyperlipidemia (CMS/HCC) (CMS/HCC) from Last 3 Months Immunizations Immunization Administration [...] Description 06/15/2025 11:00 AM EST Medication Management [facility]INE [address] [place] [address] Jing Brooks, PharmD [address] [place] [address] Health Maintenance Due Date Last Done Comments [...] Depression Screening 10/26/2025 10/26/2024, 10/27/19 Tobacco Screening 04/09/2026 04/09/2025 Eye Exam 10/16/2026 [...] 1:26 PM EDT) No Jing Smith PharmD Procedures Procedure Name Priority Date/Time Associated Diagnosis Comments POCT GLYCATED HEMOGLOBIN, TOTAL Routine 04/09/2025 1:26 PM EDT Type 2 diabetes mellitus with hyperlipidemia (CMS/HCC) (CMS/HCC) POCT GLUCOSE Routine 04/09/2025 1:25 PM EDT [...] Media Lot # [id number] Lot# Expiration Date 162,027 Blood 04/09/2025 1:26 PM EDT us Bobbi Ricks ANP POINT OF CARE TEST ENTER/EDIT OR DERABLES Final Result * POCT Glucose (04/09/2025 1:25 PM EDT) Glucose Blood, POC 136 60 - 200 mg/dL QC Media Lot # [id number] Lot# Expiration Date 227,616 Blood Capillary blood specimen / Unknown 04/09/2025 1:25 PM EDT us Bobbi Ricks ANP POINT OF CARE TEST ENTER/EDIT OR DERABLES Final Result * (ABNORMAL) Albumin, Random Urine W/Creatinine (09/23/2024 2:58 PM EST) Creatinine, Urine 33.43 mg/dL [facility] Microalbumin Urine 14.0 mg/L H [facility] Microalbum Creatinine Ratio Ur 41.8(H) <30 ug/mg cr [facility] Comment:Albumin/Creatinine R atio Reference Ranges: Normal: < 30 ug/mg creatinine Microalbuminuria: 30 - 300 ug/mg creatinineClinical Albuminuria: > 300 ug/mg creatinine 09/23/2024 2:58 PM EST 09/23/2024 4:20 PM EST us Bobbi Ricks ANP LAB URINE ORDERABLES Final Resul t [facility] [address] [place] [phone] * (ABNORMAL) Lipid Panel, Standard (06/09/2024 9:05 AM EST) Triglycerides 126 <150 mg/dL [facility] Comment:Desirable Triglyceri de: less than 150 mg/dLBorderline High Triglyceride 150-199 mg/dLHigh Triglyceride: 200-499 mg/dLVery High Triglyceride: greater than or equal to 5OO mg/dL Cholesterol 104 <200 mg/dL [facility] Comment:Desirable Cholestero l: less than 200 mg/dLBorderline High Cholesterol: 200-239 mg/dLHigh Cholesterol: greater than 239 mg/dL LDL Cholesterol Calculated 42 <100 mg/dL [facility] Comment:Desirable LDL: less than 100 mg/dLNear Optimal/Above Optimal LDL: 110- 129 mg/dLBorderline High LDL: 130-159 mg/dLHigh LDL: 160-189 mg/dLVery High LDL: greater than or equal to 190 mg/dL HDL Cholesterol 37(L) >40 mg/dL [facility] Comment:Desirable HDL: great er than 40 mg/dL Note: This HDL assay may give artificially low results in patients with liver disease. 06/09/2024 9:05 AM EST 06/09/2024 11:22 AM EST Bobbi Ricks [facility] LAB BLOOD ORDERABLES Final Resul t Performing Organization Address [facility] de Phone Number [facility] [address] [place] [phone] * Hepatitis A,B,C Profile (03/18/2024 11:25 AM EDT) Hepatitis A IgM Nonreactive Nonreactive [facility] Comment:IgM antibodies to STEPHENS V not detected; does not exclude earlyacute or recovered HAV infection. ~Hepatitis B Surface Antibody REACTIVE Nonreactive [facility] Comment:REACTIVE: > 11.99 mI U/mL Hepatitis B Core Antibody Reactive Nonreactive [facility] Comment:Presumptive evidence of anti-HBc. Hepatitis C Antibody Nonreactive Nonreactive [facility] Comment:Antibodies to HCV no t detected; does not exclude early acuteHCV infection. Hepatitis B Surface Ag Negative Negative [facility] Blood Venous blood specimen / Unknown 03/18/2024 11:25 AM EDT 03/18/2024 1:09 PM EDT Bobbi Ricks ANP LAB BLOOD ORDERABLES Final Resul t Performing Organization Address [facility] Co de Phone Number [facility] [address] [place] [address] [phone] from Last 3 Months or Most Recently Relevant to Health Maintenance Insurance [address] [place] [address] [facility] JAIL OPTIONS (HMO D-SNP) IRIS MEJIAS [id number] [place] [address] [facility] [address] [place] [address] [phone] [place] [address] [address] [place] [address] Care Teams Book Jacket Cover Machine Operator Relationship Specialty Start Date End Date Bobbi Ricks ANP [address] [place] [address] PCP - General Family Medicine 03/08/21 Jing Brooks PharmD [address] [place] [address] Pharmacist Internal Medicine 03/24/24 Lacho García MD [address] [place] [address] Drive 3rd [place] [address] Cardiology 04/09/25 [email or web address] 10/02/24
== END 2025-06-08 10:46 | disposition home or self-care (01) ==
DX: R20.0 Anesthesia of skin (principal); R20.2 Paresthesia of skin; M65.332 Trigger finger, left middle finger
CPT/HCPCS: 99203; G2211

== ENCOUNTER → 2025-06-08 10:02 | Outpatient (BNVA) | payer OTHER, SELFPAY | PROVIDERS: Visit Provider Orthopaedic Surgery | DX: M65.332 Trigger finger, left middle finger (principal); R20.0 Anesthesia of skin; R20.2 Paresthesia of skin | CPT/HCPCS: 99202 ==

== ENCOUNTER 2025-06-09 09:28 | Outpatient (AMB) | payer OTHER, SELFPAY ==
--- NOTE | 2025-06-09 09:31 | A.OFFVIS_ITS ---
Vital Signs 06/09/25 09:40 Height 5 ft 11 in Weight 176 lb 8 oz BMI 24.6 Intake Visit Reasons: 1 month perianal cysts/fistuotomy, poss. seton Intake Note: Patient presents for one month follow-up, [place]. Pt c/o; reports some drainage, reports he is going to travel to [facility] and will be back in August, denies fever, chills, nausea or vomiting. Appliance Sales Associate Required: Yes Appliance Sales Associate Services: Appliance Sales Associate Present Appliance Sales Associate Name: Boris Information Interpreted: non-clinical & clinical Accompanied by: Self / Same As Patient Allergies amlodipine Adverse Reaction (Intermediate, Verified 06/09/25 09:45) leg edema HPI HPI 1 month perianal cysts/fistuotomy, poss. seton: Details: He had undergone seton placement for anal fistula last 04/20/2025. He denies any new complaints currently. He says he feels well overall. He denies significant drainage from the fistula tract. [facility] Medical History Anal fistula Prosthetic eye globe Language barrier Cervical spondylitis Perianal infection Acquired hypothyroidism Dyslipidemia NSVT (nonsustained ventricular tachycardia) Atherosclerotic cardiovascular disease Essential hypertension Type 2 diabetes mellitus with diabetic polyneuropathy Surgical History Hx of surgical procedure (~04/20/25) Hx of CABG Hx of amputation H/O heart artery stent History of colon resection Hx of colonoscopy History of cardiac catheterization Family History Father No problems noted. Mother No problems noted. Social History (Updated 06/08/25 @ 10:31 by Diogenes Celestin Jeana) Household Members: None Housing: Condominium Are you a primary career services representative to a significant other at home: No Do you presently have visiting nurse or other home services: Yes ([facility], LEATHER STRIPPING MACHINE OPERATOR) Alcohol intake: former Comment: pt refused camera in room, states unable to sleep with light from equipment Patient Tobacco Use Status: Never used Tobacco Second Hand Smoke Exposure: No Advance Directives Date on File: 10/03/20 service: No Current occupation: left handed Review of Systems Const Denies chills and Denies fever(s) Physical Exam Const General: comfortable and no acute distress GI Other: Rectal exam shows the seton is in place and this has loose around the fistula tract in the left perianal area, no new sinuses, no induration Assessment & Plan Assessment & Plan (1) Anal fistula: Code(s): K60.30 - Anal fistula, unspecified Category: Medical Plan: The seton is in place. I tightened this with a silk 2-0 tie to make this snug around the fistula tract I will see him again in the office to tighten this. He is going to [facility] week and we will be therefore about 3 months so I told him to make sure he comes back to the office when he returns. Coding Level of Care Code Global (12387) Diagnoses Anal fistula K60.30
[2025-06-09 09:40] VITALS: BMI 24.6
--- OUTSIDE RECORDS SUMMARY | 2025-06-09 10:27 | XMS_ITS | Encounter Summary ---
Author Organization [employer] Address 75 [facility] 7t [place] [address] Care Team Providers Care Oracle Manufacturing Consultant Name Role Phone Bobbi Ricks Primary Care Provider [phone] Jing Brooks PharmD Unavailable [phone] Lacho García MD Unavailable [phone] Reason for Visit * Reason Comments Med Refill Encounter Details Date Type Department Care Team (Late st Contact Info) Description 11/12/2023 Refill [facility] MEDICINE 230 [place] [address] Bobbi Ricks ANP 230 [place] [address] Essential hypertension Social History Tobacco Use Types [...] Description 06/15/2025 11:00 AM EST Medication Management [facility] MEDICINE [address] [place] [address] Jing Brooks PharmD 230 [place] [address] documented as of this encounter Goals Goal [...] documented as of this encounter Care Teams Oracle Manufacturing Consultant Relationship Specialty Start Date End Date Bobbi Ricks ANP [address] [place] [address] [phone] PCP - General Family Medicine 03/08/21 Jing Brooks, PharmD [address] [place] [address] [phone] Pharmacist Internal Medicine 03/24/24 Lacho García MD [address] [place] [address] 3rd [place] [address] Cardiology 04/09/25 [employer] 10/02/24 documented as of this encounter
--- OUTSIDE RECORDS SUMMARY | 2025-06-09 10:28 | XMS_ITS | Encounter Summary ---
Author Organization [employer] Address 75 [facility] 7t [place] [address] Care Team Providers Care Circular Distributor Name Role Phone Bobbi Ricks Primary Care Provider [phone] Jing Brooks PharmD Unavailable [phone] Lacho García MD Unavailable [phone] Encounter Details Date Type Department Care Team (Late st Contact Info) Description 10/21/2023 Orders Only [facility] MEDICINE 230 [place] [address] Bobbi Ricks ANP 230 [place] [address] Social History Tobacco Use Types Packs/Day Years [...] Medication Management [facility] MEDICINE 230 [place] [address] Jing Brooks PharmD 230 [place] [address] documented as of this encounter Goals Goal [...] documented as of this encounter Care Teams Circular Distributor Relationship Specialty Start Date End Date Bobbi Ricks ANP 230 [place] [address] PCP - General Family Medicine 03/08/21 Jing Brooks PharmD 230 [place] [address] Pharmacist Internal Medicine 03/24/24 Lacho García MD [address] [place] [address] 3rd [place] [address] Cardiology 04/09/25 [employer] 10/02/24 documented as of this encounter
--- OUTSIDE RECORDS SUMMARY | 2025-06-09 10:28 | XMS_ITS | Clinical Summary ---
Author Organization [facility] Address [address] [facility] [address] 0 [place] [address] Phone Care Team Providers Care Silk Crepe Machine Operator Name Role Phone Bobbi Ricks NP Primary Care Provider [phone] Allergies Active Allergy Reactions Criticality Noted Date [...] patient's age to complete this topic Insurance [facility] ([id number]) IRIS MEJIAS [id number] [facility] ([id number]) IRIS MEJIAS [id number] Care Teams Silk Crepe Machine Operator Relationship Specialty Start Date End Date Bobbi Ricks NP PCP - General Nurse Practitioner 07/04/23
--- OUTSIDE RECORDS SUMMARY | 2025-06-09 10:28 | XMS_ITS | Encounter Summary ---
Author Organization [employer] Address 75 [facility] 7t [place] [address] Care Team Providers Care Human Resources Project Coordinator Name Role Phone Bobbi Ricks Primary Care Provider [phone] Jing Brooks PharmD Unavailable [phone] Lacho García MD Unavailable [phone] Reason for Visit * Reason Comments Med Refill Encounter Details Date Type Department Care Team (Late st Contact Info) Description 10/30/2023 Refill [facility] MED & PEDS [address] [place], [place] [phone] Bobbi Ricks ANP [address] [place] [address] Pain Social History Tobacco Use Types Packs/Day [...] Description 06/15/2025 11:00 AM EST Medication Management [facility] MEDICINE 230 [place] [address] Jing Brooks PharmD 230 [place] [address] documented as of this encounter Goals Goal [...] documented as of this encounter Care Teams Human Resources Project Coordinator Relationship Specialty Start Date End Date Bobbi Ricks ANP [address] [place] [address] [phone] PCP - General Family Medicine 03/08/21 Jing Brooks, PharmD [address] [place] [address] [phone] Pharmacist Internal Medicine 03/24/24 Lacho García MD [address] [place] [address] Drive 3rd [place] [address] Cardiology 04/09/25 [employer] 10/02/24 documented as of this encounter
--- OUTSIDE RECORDS SUMMARY | 2025-06-09 10:28 | XMS_ITS | Encounter Summary ---
Author Organization [employer] Address 75 [facility] 7t [place] [address] Care Team Providers Care Tool And Die Assembler Name Role Phone Bobbi Ricks Primary Care Provider [phone] Jing Brooks PharmD Unavailable [phone] Lacho García MD Unavailable [phone] Reason for Visit * Reason Onset Date Comments Hospital Follow-up 11/29/2023 Encounter Details Date Type Department Care Team (Late st Contact Info) Description 11/29/2023 Telephone [facility] 230 [place] [address] Bobbi Ricks ANP 230 [place], [place] [phone] Hospital Follow-up Social History Tobacco Use Types [...] f/u after recent admission to [facility] [place] on 11/26/23. Pt is stable [...] requesting a HDF appt. Hospital: [facility] Date of admission: 11/25 Discharge date: 11/28 Diagnosed: Acute kidney injury documented in this encounter Plan of Treatment Upcoming Encounters Date Type Department Care Team (Late st Contact Info) Description 06/15/2025 11:00 AM EST Medication Management [facility] 230 [place] [address] Jing Brooks PharmD 230 [place] [address] documented as of this encounter Goals Goal [...] documented as of this encounter Care Teams Tool And Die Assembler Relationship Specialty Start Date End Date Bobbi Ricks ANP 230 [place] [address] PCP - General Family Medicine 03/08/21 Jing Brooks PharmD [address] [place] [phone] Pharmacist Internal Medicine 03/24/24 Lacho García MD [address] [place] [address] 3rd [place] [address] Cardiology 04/09/25 [employer] 10/02/24 documented as of this encounter
--- OUTSIDE RECORDS SUMMARY | 2025-06-09 10:28 | XMS_ITS | Encounter Summary ---
Author Organization [employer] Address 75 [facility] 7t [place] [address] Care Team Providers Care Bellhop Name Role Phone Bobbi Ricks Primary Care Provider [phone] Jing Brooks PharmD Unavailable [phone] Lacho García MD Unavailable [phone] Reason for Visit * Reason Comments Med Refill Encounter Details Date Type Department Care Team (Late st Contact Info) Description 06/23/2024 Refill [facility] MED & PEDS [address] [place], [place] [phone] Bobbi Ricks ANP [address] [place] [address] Mixed hyperlipidemia Social History Tobacco Use Types [...] Management [facility] MEDICINE [address] [place] [address] Jing Brooks PharmD [address] [place] [address] documented as of this encounter Goals Goal [...] documented as of this encounter Care Teams Bellhop Relationship Specialty Start Date End Date Bobbi Ricks ANP [address] [place] [address] [phone] PCP - General Family Medicine 03/08/21 Jing Brooks, PharmD [address] [place] [address] [phone] Pharmacist Internal Medicine 03/24/24 Lacho García MD [address] [place] [address] Drive 3rd [place] [address] Cardiology 04/09/25 [employer] 10/02/24 documented as of this encounter
--- OUTSIDE RECORDS SUMMARY | 2025-06-09 10:28 | XMS_ITS | Encounter Summary ---
Author Organization [employer] Address [address] [place] [address] 7t [place] [address] Care Team Providers Care Lumite Injector Name Role Phone Bobbi Ricks ELAINA Primary Care Provider [phone] Jing Brooks PharmD Unavailable [phone] Lacho García MD Unavailable [phone] Encounter Details Date Type Department Care Team ([facility] Contact Info) Description 10/02/2022 Orders Only [facility] & PEDS 505 [place], [place] [phone] Ayse Barrientos LPN Social History Tobacco Use [...] [facility] 230 [place], [place] [phone] Jing Brooks, PharmD 230 [place], [place] [phone] documented as of this encounter Visit Diagnoses Not on filedocumented in this encounter Care Teams Lumite Injector Relationship Specialty Start Date End Date Bobbi Ricks ANP 230 [place] [address] PCP - General Family Medicine 03/08/21 Jing Brooks PharmD 230 [place] [address] Pharmacist Internal Medicine 03/24/24 Lacho García MD [address] [place] [address] 3rd [place] [address] Cardiology 04/09/25 [employer] 10/02/24 documented as of this encounter
--- OUTSIDE RECORDS SUMMARY | 2025-06-09 10:28 | XMS_ITS | Encounter Summary ---
Author Organization [employer] [facility] Address [address] [place] [address] 7t [place] [address] Care Team Providers Care Contemporary Or Modern Dancer Name Role Phone Bobbi Ricks Primary Care Provider [phone] Jing Brooks PharmD Unavailable [phone] Lacho García MD Unavailable [phone] Reason for Visit * Reason Comments Med Refill Encounter Details Date Type Department Care Team (Late st Contact Info) Description 02/14/2023 Refill [facility] MEDICINE 230 [place] [address] Bobbi Ricks ANP 230 [place] [address] Hypertension associated with diabetes (CMS/HCC) Social History [...] Description 06/15/2025 11:00 AM EST Medication Management [facility] MEDICINE 230 [place] [address] Jing Brooks, PharmD 230 [place] [address] documented as of this encounter Visit Diagnoses Diagnosis Hypertension associated with diabetes (HCC) Unspecified essential hypertension documented in this encounter Additional Health Concerns Assessment Noted Time PHQ-9 Depression Total Score: 14 023 9:40 AM EDT documented as of this encounter Care Teams Contemporary Or Modern Dancer Relationship Specialty Start Date End Date Bobbi Ricks ANP 230 [place] [address] PCP - General Family Medicine 03/08/21 Jing Brooks, Julia [address] [place] [address] Pharmacist Internal Medicine 03/24/24 Lacho García MD [address] [place] [address] 3rd [place] [address] Cardiology 04/09/25 [email or web address] 10/02/24 documented as of this encounter
--- OUTSIDE RECORDS SUMMARY | 2025-06-09 10:28 | XMS_ITS | Encounter Summary ---
Author Organization [employer] Address 75 [facility] 7t [place] [address] Care Team Providers Care Grey Roll Man Name Role Phone Bobbi Ricks ELAINA Primary Care Provider [phone] Jing Brooks PharmD Unavailable [phone] Lacho García MD Unavailable [phone] Reason for Visit * Reason Comments Med Refill Encounter Details Date Type Department Care Team (Late st Contact Info) Description 04/28/2025 Refill [facility] MEDICINE 230 [place] [address] Jing Brooks, PharmD 230 [place], [place] [phone] Type 2 diabetes mellitus with hyperlipidemia (HCC) [...] 11:00 AM EST Medication Management [facility] MEDICINE 230 [place] [address] Jing Brooks PharmD 230 [place] [address] documented as of this encounter Goals Goal [...] documented as of this encounter Care Teams Grey Roll Man Relationship Specialty Start Date End Date Bobbi Ricks ANP 230 [place] [address] PCP - General Family Medicine 03/08/21 Jing Brooks PharmD 230 [place] [address] Pharmacist Internal Medicine 03/24/24 Lacho García MD [address] [place] [address] 3rd [place] [address] Cardiology 04/09/25 [email or web address] 10/02/24 documented as of this encounter
--- OUTSIDE RECORDS SUMMARY | 2025-06-09 10:28 | XMS_ITS | Encounter Summary ---
Author Organization [employer] Address 75 [facility] 7t [place] [address] Care Team Providers Care Cruise Consultant Name Role Phone Bobbi Ricks Primary Care Provider [phone] Jing Brooks PharmD Unavailable [phone] Lacho García MD Unavailable [phone] Encounter Details Date Type Department Care Team (Late st Contact Info) Description 04/05/2025 Telephone [facility] MEDICINE 230 [place] [address] Bobbi Ricks ANP 230 [place] [address] Social History Tobacco Use Types Packs/Day Years [...] 06/15/2025 11:00 AM EST Medication Management [facility] MEDICINE 230 [place] [address] RishisJing Escobar, PharmD 230 [place] [address] documented as of this encounter Goals Goal [...] documented as of this encounter Care Teams Cruise Consultant Relationship Specialty Start Date End Date Bobbi Ricks ANP 230 [place] [address] PCP - General Family Medicine 03/08/21 Piers-Cerda, Jing, PharmD 230 [place] [address] Pharmacist Internal Medicine 03/24/24 Lacho García MD [address] [place] [address] 3rd [place] [address] Cardiology 04/09/25 [employer] 10/02/24 documented as of this encounter
--- OUTSIDE RECORDS SUMMARY | 2025-06-09 10:28 | XMS_ITS | Encounter Summary ---
Author Organization [employer] Address 75 [facility] 7t [place] [address] Care Team Providers Care Call Out Clerk Name Role Phone Bobbi Ricks Primary Care Provider [phone] Jing Brooks PharmD Unavailable [phone] Lacho García MD Unavailable [phone] Reason for Visit * Reason Onset Date Comments Nurse Triage 06/04/2025 Encounter Details Date Type Department Care Team (Late st Contact Info) Description 06/04/2025 Telephone [facility] MEDICINE 230 [place] [address] Bobbi Ricks ANP 230 [place] [address] Nurse Triage Social History Tobacco Use Types [...] your housing situation today? I have delbert roebrt 10/19/[address] you li [...] caller accepted this outcome. Contact hui [employer] at [phone] documented in this encounter Plan of Treatment Upcoming Encounters Date Type Department Care Team (Late st Contact Info) Description 06/15/2025 11:00 AM EST Medication Management [facility] MEDICINE [address] [place] [address] Jing Brooks PharmD 230 [place] [address] documented as of this encounter Goals Goal [...] documented as of this encounter Care Teams Call Out Clerk Relationship Specialty Start Date End Date Bobbi Ricks ANP [address] [place] [address] PCP - General Family Medicine 03/08/21 Jing Brooks PharmD [address] [place] [address] Pharmacist Internal Medicine 03/24/24 Lacho García MD [address] [place] [address] 3rd [place] [address] Cardiology 04/09/25 [employer] 10/02/24 documented as of this encounter
--- OUTSIDE RECORDS SUMMARY | 2025-06-09 10:28 | XMS_ITS | Encounter Summary ---
Author Organization [email or web address] Address [address] [place] [address] 7t [place] [address] Care Team Providers Care Fixed Assets Accountant Name Role Phone Bobbi Ricks Primary Care Provider Jing Brooks PharmD Unavailable Lacho García MD Unavailable [phone] Encounter Details Date Type Department Care Team (Late st Contact Info) Description 08/14/2022 Orders Only [facility] MED & PEDS [address] [place] [address] Ayse Barrientos LPN Social History Tobacco Use [...] Description 06/15/2025 11:00 AM EST Medication Management [facility] MEDICINE 230 [place] [address] Jing Brooks, PharmD 230 [place] [address] documented as of this encounter Visit Diagnoses Not on filedocumented in this encounter Care Teams Fixed Assets Accountant Relationship Specialty Start Date End Date Bobbi Ricks ANP 230 [place] [address] PCP - General Family Medicine 03/08/21 Jing Brooks, Julia [address] [place] [address] Pharmacist Internal Medicine 03/24/24 Lacho García MD [address] [place] [address] 3rd [place] [address] Cardiology 04/09/25 [employer] 10/02/24 documented as of this encounter
--- OUTSIDE RECORDS SUMMARY | 2025-06-09 10:28 | XMS_ITS | Encounter Summary ---
Author Organization [employer] [facility] Address [address] [place] [address] 7t [place] [address] Care Team Providers Care Privacy Compliance Manager Name Role Phone Bobbi Ricks ELAINA Primary Care Provider [phone] Jing Brooks PharmD Unavailable [phone] Lacho García MD Unavailable [phone] Encounter Details Date Type Department Care Team (Late st Contact Info) Description 03/18/2023 Orders Only [facility] MEDICINE [address] [place] [address] Vj Tolbert 230 [place] [address] Social History Tobacco Use Types Packs/Day Years [...] Medication Management [facility] MEDICINE [address] [place] [address] Jing Brooks, PharmD 230 [place] [address] documented as of this encounter Visit Diagnoses Not on filedocumented in this encounter Additional Health Concerns Assessment Noted Time PHQ-9 Depression Total Score: 14 023 9:40 AM EDT documented as of this encounter Care Teams Privacy Compliance Manager Relationship Specialty Start Date End Date Bobbi Ricks ANP 230 [place] [address] PCP - General Family Medicine 03/08/21 Jing Brooks PharmD 230 [place] [address] Pharmacist Internal Medicine 03/24/24 Lacho García MD [address] [place] [address] Drive 3rd [place] [address] Cardiology 04/09/25 [employer] 10/02/24 documented as of this encounter
--- OUTSIDE RECORDS SUMMARY | 2025-06-09 10:28 | XMS_ITS | Encounter Summary ---
Author Organization [employer] Address 75 [facility] 7t [place] [address] Care Team Providers Care Hop Trainer Name Role Phone Bobbi Ricks Primary Care Provider [phone] Jing Brooks PharmD Unavailable [phone] Lacho García MD Unavailable [phone] Reason for Visit * Reason Comments Med Refill Encounter Details Date Type Department Care Team (Late st Contact Info) Description 11/01/2023 Refill [facility] MED & PEDS [address] [place], [place] [phone] Bobbi Ricks ANP [address] [place] [address] Pain Social History Tobacco Use Types Packs/Day [...] 06/15/2025 11:00 AM EST Medication Management [facility] MEDICINE 230 [place] [address] Jing Brooks PharmD 230 [place] [address] documented as of this encounter Goals Goal [...] documented as of this encounter Care Teams Hop Trainer Relationship Specialty Start Date End Date Bobbi Ricks ANP [address] [place] [address] [phone] PCP - General Family Medicine 03/08/21 Jing Brooks, PharmD [address] [place] [address] [phone] Pharmacist Internal Medicine 03/24/24 Lacho García MD [address] [place] [address] Drive 3rd [place] [address] Cardiology 04/09/25 [employer] 10/02/24 documented as of this encounter
--- OUTSIDE RECORDS SUMMARY | 2025-06-09 10:28 | XMS_ITS | Encounter Summary ---
Author Organization [employer] Address [address] [facility] 7t [place] [address] Care Team Providers Care Creative Consultant Name Role Phone Bobbi Ricks ELAINA Primary Care Provider [phone] Jing Brooks PharmD Unavailable [phone] Lacho García MD Unavailable [phone] Reason for Visit * Reason Comments Med Refill Encounter Details Date Type Department Care Team (Late st Contact Info) Description 03/23/2025 Refill [facility] MEDICINE 230 [place] [address] Jing Brooks, PharmD 230 [place], [place] [phone] Type 2 diabetes mellitus with hyperlipidemia (CMS/HCC) ([facility]/HCC) Social History Tobacco Use Types Packs/Day [...] Description 06/15/2025 11:00 AM EST Medication Management [facility] MEDICINE [address] [place] [address] Jing Brooks PharmD [address] [place] [address] documented as of this encounter Goals Goal [...] documented as of this encounter Care Teams Creative Consultant Relationship Specialty Start Date End Date Bobbi Ricks ANP [address] [place] [address] PCP - General Family Medicine 03/08/21 Jing Brooks PharmD [address] [place] [address] Pharmacist Internal Medicine 03/24/24 Lacho García MD [address] [place] [address] 3rd [place] [address] Cardiology 04/09/25 [employer] 10/02/24 documented as of this encounter
--- OUTSIDE RECORDS SUMMARY | 2025-06-09 10:28 | XMS_ITS | Encounter Summary ---
Author Organization [employer] Address [address] [place] [address] 7[address] [place] [address] Care Team Providers Care Learning Services Coordinator Name Role Phone Bobbi Ricks Primary Care Provider [phone] Jing Brooks PharmD Unavailable [phone] Lacho García MD Unavailable [phone] Reason for Visit * Reason Onset Date Comments Appointment Request 10/29/2022 Encounter Details Date Type Department Care Team (Late st Contact Info) Description 10/29/[address] [facility] [address] [place] [address] Bobbi Ricks ANP [address] [place] [address] Appointment Request Social History Tobacco Use Types [...] 10:38 AM EDT Tc from Catherine with [facility] requesting an appt with provider. Physical Therapy Professor tried booking but provider has nothing available at this time. Please contact pt at [phone] Ukrainian Speaker documented in this encounter Plan of Treatment Upcoming Encounters Date Type Department Care Team (Late st Contact Info) Description 06/15/2025 11:00 AM EST Medication Management [facility] [address] [place] [address] Jing Brooks, PharmD [address] [place] [address] documented as of this encounter Visit Diagnoses Not on filedocumented in this encounter Care Teams Learning Services Coordinator Relationship Specialty Start Date End Date Bobbi Ricks ANP [address] [place] [phone] PCP - General Family Medicine 03/08/21 Jing Brooks, PharmD [address] [place] [phone] Pharmacist Internal Medicine 03/24/24 Lacho García MD [address] [place] [address] 3rd [place] [address] Cardiology 04/09/25 [facility] 10/02/24 documented as of this encounter
--- OUTSIDE RECORDS SUMMARY | 2025-06-09 10:28 | XMS_ITS | Clinical Summary ---
Author Organization [employer] Address [address] [place] [address] 7t [place] [address] Care Team Providers Care Manager Security And Safety Name Role Phone Bobbi Ricks ELAINA Primary Care Provider [phone] Jing Brooks PharmD Unavailable [phone] Lacho García MD Unavailable [phone] Allergies Active Allergy Reactions Criticality Noted Date [...] 18 g 025 2025 Active Continuous Glucose Tenant Selector (FreeStyle Yanni 3 [place]) deviceIndications :Type 2 diabetes mellitus with hyperlipidemia [...] Type Department Care Team Description 06/04/2025 Telephone [facility] [address] [place] [phone] Bobbi Ricks ANP Nurse Triage 05/24/2025 Refill [facility] [address] [place] [phone] Bobbi Ricks ANP 05/21/2025 Travel 05/11/2025 Telephone [facility] [address] [place] [phone] Jing Brooks PharmD 04/28/2025 Travel 04/28/2025 Refill [facility] [address] [place] [phone] Jing Brooks PharmD Type 2 diabetes mellitus with hyperlipidemia (HCC) 04/27/2025 Telephone [facility] [address] [place] [phone] Bobbi Ricks ANP 04/09/2025 1:30 PM EDT Office Visit [facility] [address] [place] [phone] Bobbi Ricks ANP Flatulence (Primary Dx); Type 2 diabetes mellitus with hyperlipidemia (CMS/HCC) (CMS/HCC); Locking finger joint; Hypertensive renal disease 04/09/2025 Travel 04/08/2025 Telephone [facility] [address] [place] [phone] Bobbi Ricks ANP 04/05/2025 Refill [facility] [address] [place] [phone] Bobbi Ricks ANP Essential hypertension 04/05/2025 Telephone [facility] [address] [place] [phone] Bobbi Ricks ANP 04/02/2025 Patient Outreach [facility] [address] [place] [phone] Bobbi Ricks ANP Pre-visit Planning (SDOH screening was completed on 10/19/2024) 03/24/2025 Refill [facility] [address] [place] [phone] Bobbi Ricks ANP Type 2 diabetes mellitus with hyperlipidemia (CMS/HCC) (CMS/HCC); Dry skin; Low back pain at multiple sites 03/24/2025 Refill [facility] [address] [place] [phone] Bobbi Ricks ANP Low back pain at multiple sites 03/23/2025 Travel 03/23/2025 Refill [facility] [address] [place] [phone] Jing Brooks PharmD Type 2 diabetes mellitus [...] 06/15/2025 11:00 AM EST Medication Management [facility] [address] [place] [address] Jing Brooks, PharmD [address] [place] [address] Health Maintenance Due Date Last Done Comments [...] Media Lot # [id number] Lot# Expiration Date [id number] Blood Capillary blood specimen / Unknown 04/09/2025 1:25 PM EDT us Bobbi Ricks ANP POINT OF CARE TEST ENTER/EDIT OR DERABLES Final Result * (ABNORMAL) Albumin, Random Urine W/Creatinine (09/23/2024 2:58 PM EST) Creatinine, Urine 33.43 mg/dL [facility] Microalbumin Urine 14.0 mg/L H [facility] Microalbum Creatinine Ratio Ur 41.8(H) <30 ug/mg cr [facility] Comment:Albumin/Creatinine R atio Reference Ranges: Normal: < 30 ug/mg creatinine Microalbuminuria: 30 - 300 ug/mg creatinineClinical Albuminuria: > 300 ug/mg creatinine 09/23/2024 2:58 PM EST 09/23/2024 4:20 PM EST us Bobbi Ricks ANP LAB URINE ORDERABLES Final Resul t [facility] [address] [place] [phone] * (ABNORMAL) Lipid Panel, Standard (06/09/2024 9:05 AM EST) Triglycerides 126 <150 mg/dL [facility] Comment:Desirable Triglyceri de: less than 150 mg/dLBorderline High Triglyceride 150-199 mg/dLHigh Triglyceride: 200-499 mg/dLVery High Triglyceride: greater than or equal to 5OO mg/dL Cholesterol 104 <200 mg/dL [facility] Comment:Desirable Cholestero l: less than 200 mg/dLBorderline High Cholesterol: 200-239 mg/dLHigh Cholesterol: greater than 239 mg/dL LDL Cholesterol Calculated 42 <100 mg/dL [facility] Comment:Desirable LDL: less than 100 mg/dLNear Optimal/Above Optimal LDL: 110- 129 mg/dLBorderline High LDL: 130-159 mg/dLHigh LDL: 160-189 mg/dLVery High LDL: greater than or equal to 190 mg/dL HDL Cholesterol 37(L) >40 mg/dL [facility] Comment:Desirable HDL: great er than 40 mg/dL Note: This HDL assay may give artificially low results in patients with liver disease. 06/09/2024 9:05 AM EST 06/09/2024 11:22 AM EST Bobbi Ricks [facility] BLOOD ORDERABLES Final Resul t Performing Organization Address [facility] de Phone Number [facility] [address] [place] [phone] * Hepatitis A,B,C Profile (03/18/2024 11:25 AM EDT) Hepatitis A IgM Nonreactive Nonreactive [facility] Comment:IgM antibodies to STEPHENS V not detected; does not exclude earlyacute or recovered HAV infection. ~Hepatitis B Surface Antibody REACTIVE Nonreactive [facility] Comment:REACTIVE: > 11.99 mI U/mL Hepatitis B Core Antibody Reactive Nonreactive [facility] Comment:Presumptive evidence of anti-HBc. Hepatitis C Antibody Nonreactive Nonreactive [facility] Comment:Antibodies to HCV no t detected; does not exclude early acuteHCV infection. Hepatitis B Surface Ag Negative Negative [facility] Blood Venous blood specimen / Unknown 03/18/2024 11:25 AM EDT 03/18/2024 1:09 PM EDT Bobbi Ricks ANP LAB BLOOD ORDERABLES Final Resul t Performing Organization Address [facility] Co de Phone Number [facility] [address] [place] [address] [phone] from Last 3 Months or Most Recently Relevant to Health Maintenance Insurance [facility] OPTIONS (HMO D-SNP) [place] [id number] [place] [address] [facility] [address] [place] [address] [phone] [place] [phone] Care Teams Manager Security And Safety Relationship Specialty Start Date End Date Bobbi Ricks ANP [address] [place] [address] PCP - General Family Medicine 03/08/21 Jing Brooks PharmD [address] [place] [address] Pharmacist Internal Medicine 03/24/24 Lacho García MD [address] [place] [address] Cardiology 04/09/25 [email or web address] 10/02/24
--- OUTSIDE RECORDS SUMMARY | 2025-06-09 10:28 | XMS_ITS | Encounter Summary ---
Author Organization [employer] Address [address] [facility] [address]t [place] [address] Care Team Providers Care Technology Applications Consultant Name Role Phone Bobbi Ricks Primary Care Provider [phone] Jing Brooks PharmD Unavailable [phone] Lacho García MD Unavailable [phone] Encounter Details Date Type Department Care Team ([facility] Contact Info) Description 12/21/2022 Orders Only [facility] [address] [place], [place] [phone] Ayse Barrientos LPN Social History Tobacco Use [...] Upcoming Encounters Date Type Department Care Team ([facility] Contact Info) Description 06/15/2025 11:00 AM EST Medication Management [facility] [address] [place], [place] [phone] Jing Brooks PharmD [address] [place] [address] documented as of this encounter Visit Diagnoses Not on filedocumented in this encounter Additional Health Concerns Assessment Noted Time PHQ-9 Depression Total Score: 14 023 9:40 AM EDT documented as of this encounter Care Teams Technology Applications Consultant Relationship Specialty Start Date End Date Bobbi Ricks ANP [address] [place] [address] PCP - General Family Medicine 03/08/21 Jing Brooks PharmD [address] [place] [phone] Pharmacist Internal Medicine 03/24/24 Lacho García MD [address] [place] [address] 3rd [place] [address] Cardiology 04/09/25 [facility] 10/02/24 documented as of this encounter
== END 2025-06-09 09:46 | disposition home or self-care (01) ==
LOC: HO.HGS 09:28
PROVIDERS: Visit Provider Surgery
DX: K60.30 Anal fistula, unspecified (principal)
CPT/HCPCS: 99024

== ENCOUNTER → 2025-06-09 09:28 | Outpatient (BNVA) | payer OTHER, SELFPAY | PROVIDERS: Visit Provider Surgery | DX: Z48.815 Encounter for surgical aftercare following surgery on the digestive system (principal); K60.30 Anal fistula, unspecified | CPT/HCPCS: 99212 ==